=== PATIENT | male | born 1945 | race African-American/Black ===

== ENCOUNTER 2017-08-30 02:44 | Emergency (ER) | payer OTHER ==
[2017-08-30 05:07] LABS: Protime INR 1.14
[2017-08-30 05:14] LABS: Hematocrit 35.6 % (39.6-49.0); MCH 19.1 pg (27.0-35.0); MCV 62.5 fL (80-100); MPV 9.6 fL (7.6-11.3)
[2017-08-30 05:15] LABS: Potassium 3.5 mEq/L (3.6-5.0)
[2017-08-30 05:42] LABS: Blood Morphology Comment NOTED (NOT SEEN); Hypochromasia 2+; Ovalocytes 3+; Platelet Estimate ADEQ
--- NOTE | 2017-08-30 06:19 | ER ---
Nurse's Notes [facility] Name: Tal Cornejo Age: 72 yrs Sex: Male : 1945 Arrival Date: 08/30/2017 Time: 02:47 Bed 13 Private MD: Diagnosis: Deep Venous Thrombosis of left lower extremity Presentation: 08/30 03:11 Presenting complaint: Patient states: he has been having leg pain radiating from his bb calf to his hamstring and groin for approx one week and he is having SOB with mild chest pain radiating to his left arm, pt states he is on Xarelto for history of blood clots. Transition of care: patient was not received from another setting of care. Onset of symptoms was August 23, 2017. Initial Sepsis Screen: Does the patient meet any 2 criteria? No. Patient's initial sepsis screen is negative. Does the patient have a suspected source of infection? No. Patient's initial sepsis screen is negative. Care prior to arrival: None. 03:11 Method Of Arrival: Ambulatory bb 03:11 Acuity: MARTITA 3 bb Triage Assessment: 04:43 General: Appears uncomfortable. General: Behavior is cooperative, appropriate for age. bs1 Respiratory: Onset: The symptoms/episode began/occurred gradually, the patient has moderate shortness of breath. Respiratory: Airway is patent Breath sounds are clear bilaterally. Historical: - Allergies: 03:43 No Known Allergies; bb - Home Meds: 03:43 Allopurinol Oral [Active]; Ambien Oral [Active]; Furosemide Oral [Active]; losartan 100 bb mg Oral tab 1 tab once daily [Active]; Metformin Oral [Active]; Xarelto oral oral [Active]; - PMHx: 03:43 Diabetes - NIDDM; DVT; Gout; Hyperlipidemia; Hypertension; LYMPHODEMA; bb - PSHx: 03:43 L wrist; right femur; IVC filter; bb - Immunization history:: Adult Immunizations unknown, Flu vaccine is not up to date. - Social history:: Smoking status: Patient/guardian denies using tobacco, Patient uses alcohol, occasionally. Patient/guardian denies using street drugs. - Family history:: not pertinent. - Hospitalizations: : No recent hospitalization is reported. Screenin:23 Abuse screen: Denies threats or abuse. Denies injuries from another. Nutritional bs1 screening: No deficits noted. Tuberculosis screening: No symptoms or risk factors identified. 04:43 Fall Risk None identified. bs1 Assessment: 03:21 General: Appears uncomfortable, Behavior is cooperative, anxious. Pain: Complains of bs1 pain in chest, left calf Pain does not radiate. Neuro: Level of Consciousness is awake, alert, obeys commands, Oriented to person, place, time, situation, Appropriate for age Insecticide Sprayer are equal bilaterally. Cardiovascular: Reports chest pain, shortness of breath, Denies lightheadedness, nausea, palpitations, Heart tones S1 S2 present Capillary refill < 3 seconds Patient's skin is warm and dry. Rhythm is regular. Respiratory: Reports shortness of breath at rest on exertion Airway is patent Respiratory effort is labored, Breath sounds are clear bilaterally. GI: No deficits noted. No signs and/or symptoms were reported involving the gastrointestinal system. : No deficits noted. No signs and/or symptoms were reported regarding the genitourinary system. EENT: No deficits noted. No signs and/or symptoms were reported regarding the EENT system. Derm: Skin is intact, Skin is pink, warm \T\ dry. Musculoskeletal: Circulation, motion, and sensation intact. Capillary refill < 3 seconds, Range of motion: intact in all extremities, lymphedema noted to bilateral lower legs. 04:45 Reassessment: Patient appears in no apparent distress at this time. Patient and/or bs1 family updated on plan of care and expected duration. Pain level reassessed. Patient is alert, oriented x 3, equal unlabored respirations, skin warm/dry/pink. 05:45 Reassessment: Patient appears in no apparent distress at this time. Patient and/or bs1 family updated on plan of care and expected duration. Pain level reassessed. Patient is alert, oriented x 3, equal unlabored respirations, skin warm/dry/pink. Patient states symptoms have improved. 06:25 Reassessment: Patient appears in no apparent distress at this time. No changes from bs1 previously documented assessment. Patient and/or family updated on plan of care and expected duration. Pain level reassessed. Patient is alert, oriented x 3, equal unlabored respirations, skin warm/dry/pink. Vital Signs: 03:15 BP 164 / 81; Pulse 80; Resp 18; Temp 98.4(TE); Pulse Ox 97% on R/A; Weight 117.93 kg bb (R); Height 6 ft. 1 in. (185.42 cm) (R); Pain 8/10; 04:30 BP 155 / 92; Pulse 86; Resp 16; Pulse Ox 100% on R/A; bs1 05:30 BP 136 / 88; Pulse 74; Resp 16; Pulse Ox 99% on R/A; bs1 06:06 BP 154 / 83; Pulse 62; Resp 16; Pulse Ox 99% on R/A; bs1 03:15 Body Mass Index 34.30 (117.93 kg, 185.42 cm) bb ED Course: 02:47 Patient arrived in ED. al2 03:05 Timothy Brewer MD is Attending Physician. rn 03:11 Arm band placed on Patient placed in an exam room, on a stretcher, on second worker, bb on pulse oximetry. EKG completed in triage. Results shown to MD. 03:15 Inserted saline lock: 20 gauge in right antecubital area, using aseptic technique. By bs1 [place]. 03:20 Heather Power RN is Primary Nurse. bs1 03:23 Patient has correct armband on for positive identification. Bed in low position. Call bs1 light in reach. Side rails up X 1. engineer on. Pulse ox on. NIBP on. Warm blanket given. 03:40 X-ray completed. Portable x-ray completed in exam room. Patient tolerated procedure kw well. 03:40 Triage completed. bb 03:43 XRAY Chest (1 view) In Process Unspecified. EDMS 03:57 Extremity Venous Uni Ltd In Process Unspecified. EDMS 04:36 Lab(s) recollected, by me, sent to lab. bs1 06:28 No provider procedures requiring assistance completed. IV discontinued, bleeding bs1 controlled, No redness/swelling at site. Pressure dressing applied. Administered Medications: 06:28 Drug: Xarelto 20 mg Route: PO; bs1 06:29 Follow up: Response: No adverse reaction bs1 Outcome: 06:19 Discharge ordered by . rn 06:28 Discharged to home ambulatory. bs1 06:28 Condition: stable 06:28 Discharge instructions given to patient, Instructed on discharge instructions, follow up and referral plans. medication usage, Demonstrated understanding of instructions, follow-up care, medications, Prescriptions given X 1. 06:29 Patient left the ED. bs1 Signatures: Dispatcher [employer] EDAshley Macdonald RN RN bb Timothy Brewer MD MD rn Whitley, Kimberlee kw Salazar, Brittany, RN RN bs1 Sandi, Irma miles Corrections: (The following items were deleted from the chart) 03:44 03:23 BP 164 / 81; Pulse 80bpm; Resp 18bpm; Pulse Ox 97% RA; Pain 8/10; bs1 bb 03:45 03:23 BP 164 / 81; Pulse 80bpm; Resp 18bpm; Pulse Ox 97% RA; Temp 98.4F Temporal; bb 117.93 kg Reported; Height 6 ft. 1 in. Reported; BMI: 34.3; Pain 8/10; bb
--- NOTE | 2017-08-30 06:19 | EDPHYS ---
Physician Documentation [facility] Name: Tal Cornejo Age: 72 yrs Sex: Male : 1945 Arrival Date: 08/30/2017 Time: 02:47 Bed 13 Private MD: ED Physician Timothy Brewer HPI: 08/30 03:43 This 72 yrs old Black Male presents to ER via Ambulatory with complaints of Leg Pain, rn Groin Pain, Shortness Of Breath. 03:43 The patient presents with pain, swelling. The complaints affect the left hamstring and rn left calf. Onset: The symptoms/episode began/occurred 1 week(s) ago. Associated signs and symptoms: Pertinent positives: swelling. Severity of symptoms: At their worst the symptoms were mild, in the emergency department the symptoms are unchanged. The patient has experienced similar episodes in the past. Reports hx of dvt, has IVC filter, no xarelto for 2 days, reports 1 week of left leg aching, no trauma, also intermittent sob, but not much worse than usual. No fever/cough. . Historical: - Allergies: 03:43 No Known Allergies; bb - Home Meds: 03:43 Allopurinol Oral [Active]; Ambien Oral [Active]; Furosemide Oral [Active]; losartan 100 bb mg Oral tab 1 tab once daily [Active]; Metformin Oral [Active]; Xarelto oral oral [Active]; - PMHx: 03:43 Diabetes - NIDDM; DVT; Gout; Hyperlipidemia; Hypertension; LYMPHODEMA; bb - PSHx: 03:43 L wrist; right femur; IVC filter; bb - Immunization history:: Adult Immunizations unknown, Flu vaccine is not up to date. - Social history:: Smoking status: Patient/guardian denies using tobacco, Patient uses alcohol, occasionally. Patient/guardian denies using street drugs. - Family history:: not pertinent. - Hospitalizations: : No recent hospitalization is reported. ROS: 03:43 Constitutional: Negative for fever, chills, and weight loss, Eyes: Negative for injury, rn pain, redness, and discharge, Neck: Negative for injury, pain, and swelling, Cardiovascular: Negative for palpitations Respiratory: Negative for cough, wheezing, and pleuritic chest pain, Abdomen/GI: Negative for abdominal pain, nausea, vomiting, diarrhea, and constipation, Back: Negative for injury and pain, MS/Extremity: + swelling and pain to both legs Skin: Negative for injury, rash, and discoloration, Neuro: Negative for headache, weakness, numbness, tingling, and seizure. Exam: 03:43 Constitutional: Overweight male, no acute distress Head/Face: Normocephalic, rn atraumatic. Eyes: Pupils equal round and reactive to light, extra-ocular motions intact. Lids and lashes normal. Conjunctiva and sclera are non-icteric and not injected. Cornea within normal limits. Periorbital areas with no swelling, redness, or edema. Neck: Trachea midline, no thyromegaly or masses palpated, and no cervical lymphadenopathy. Supple, full range of motion without nuchal rigidity, or vertebral point tenderness. No Meningismus. Cardiovascular: Regular rate and rhythm with a normal S1 and S2. No gallops, murmurs, or rubs. Normal PMI, no JVD. No pulse deficits. Respiratory: Lungs have equal breath sounds bilaterally, clear to auscultation and percussion. No rales, rhonchi or wheezes noted. No increased work of breathing, no retractions or nasal flaring. Abdomen/GI: Soft, non-tender, with normal bowel sounds. No distension or tympany. No guarding or rebound. No evidence of tenderness throughout. MS/ Extremity: Pulses equal, no cyanosis. Neurovascular intact. Full, normal range of motion. Equal circumference. 2+ pitting edema bilateral lower ext Neuro: Awake and alert, GCS 15, oriented to person, place, time, and situation. Cranial nerves II-XII grossly intact. Motor strength 5/5 in all extremities. Sensory grossly intact. Vital Signs: 03:15 BP 164 / 81; Pulse 80; Resp 18; Temp 98.4(TE); Pulse Ox 97% on R/A; Weight 117.93 kg bb (R); Height 6 ft. 1 in. (185.42 cm) (R); Pain 8/10; 04:30 BP 155 / 92; Pulse 86; Resp 16; Pulse Ox 100% on R/A; bs1 05:30 BP 136 / 88; Pulse 74; Resp 16; Pulse Ox 99% on R/A; bs1 06:06 BP 154 / 83; Pulse 62; Resp 16; Pulse Ox 99% on R/A; bs1 03:15 Body Mass Index 34.30 (117.93 kg, 185.42 cm) bb MDM: 03:05 Patient medically screened. rn 06:17 Differential diagnosis: DVT, edema, CHF. Data reviewed: vital signs, nurses notes, seed laboratory assistant test result(s), radiologic studies, doppler, plain films, and as a result, I will discharge patient. Counseling: I had a detailed discussion with the patient and/or guardian regarding: the historical points, exam findings, and any diagnostic results supporting the discharge/admit diagnosis, lab results, radiology results, the need for outpatient follow up, to return to the emergency department if symptoms worsen or persist or if there are any questions or concerns that arise at home. Special discussion: I discussed with the patient/guardian in detail that at this point there is no indication for admission to the hospital. It is understood, however, that if the symptoms persist or worsen the patient needs to return immediately for re-evaluation. ED course: Pt with DVT in LLE, larger than before, sleeping comfortably while oxygen 99% and normal HR, has IVC filter, will refill xarelto and dc home. . 08/30 03:13 Order name: CBC with Diff; Complete Time: 05:53 rn 08/30 03:13 Order name: Basic Metabolic Panel; Complete Time: 05:53 rn 08/30 03:13 Order name: Protime (+inr); Complete Time: 05:53 rn 08/30 03:13 Order name: Ptt, Activated; Complete Time: 05:53 rn 08/30 03:13 Order name: Troponin (emerg Dept Use Only); Complete Time: 05:53 rn 08/30 03:13 Order name: BNP; Complete Time: 05:53 rn 08/30 03:13 Order name: IV Start; Complete Time: 03:20 rn 08/30 03:13 Order name: EKG; Complete Time: 03:14 rn 08/30 03:13 Order name: XRAY Chest (1 view) rn 08/30 03:30 Order name: Extremity Venous Uni Ltd em1 08/30 03:46 Order name: Extremity Venous Uni Ltd EDNY 08/30 05:15 Order name: Manual Differential; Complete Time: 05:53 EDNY 08/30 03:13 Order name: EKG - Nurse/Tech; Complete Time: 03:20 rn Administered Medications: 06:28 Drug: Xarelto 20 mg Route: PO; bs1 06:29 Follow up: Response: No adverse reaction bs1 Disposition: 08/30/17 06:19 Discharged to Home. Impression: Deep Venous Thrombosis of left lower extremity. - Condition is Stable. - Discharge Instructions: Deep Vein Thrombosis. - Prescriptions for Xarelto 20 mg Oral tablet - take 1 tablet by ORAL route once daily; 60 tablet. - Medication Reconciliation Form, Thank You Letter, Antibiotic Education, Prescription Opioid Use form. - Follow up: Private Physician; When: 1 - 2 days; Reason: Recheck today's complaints, Re-evaluation by your physician. - Problem is an ongoing problem. - Symptoms are unchanged. Signatures: Dispatcher [employer] [facility] Ashley Delaney RN RN Timothy Navarro MD MD rn Salazar, Brittany, RN RN bs1 Corrections: (The following items were deleted from the chart) 03:14 03:14 Extremity Venous Uni Ltd+US.RAD.BRZ ordered. [facility] 06:29 06:19 08/30/2017 06:19 Discharged to Home. Impression: Deep Venous Thrombosis of left bs1 lower extremity. Condition is Stable. Forms are Medication Reconciliation Form, Thank You Letter, Antibiotic Education, Prescription Opioid Use. Follow up: Private Physician; When: 1 - 2 days; Reason: Recheck today's complaints, Re-evaluation by your physician. Problem is an ongoing problem. Symptoms are unchanged. rn
[2017-08-30] MEDS ORDERED: RIVAROXABAN 20 MG TABLET PO ONE (06:20)
[2017-08-30 06:43] VITALS: TEMP 98.4
[2017-08-30 06:44] VITALS: O2SAT 99
[2017-08-30 06:46] VITALS: BP 154/83
--- NOTE | 2017-08-30 08:32 | RAD REPORT ---
EXAM DESCRIPTION: RAD - Chest Single View - 08/30/2017 3:42 am CLINICAL HISTORY: Chest pain. COMPARISON: 04/20/2017 FINDINGS: Portable technique limits examination quality. The lungs are grossly clear. The heart is normal in size. No displaced fractures.Tortuous thoracic ao rta. IMPRESSION: No acute intrathoracic process suspected.
--- NOTE | 2017-08-30 08:33 | RAD REPORT ---
EXAM DESCRIPTION: VAS - Extremity Venous Uni Ltd - 08/30/2017 3:57 am CLINICAL HISTORY: Leg swelling and edema. COMPARISON: 04/20/2017 FINDINGS: Left lower extremity venous system was interrogated with Doppler technique. Thrombus is pr esent in the left common femoral vein, left femoral vein proximal and mid aspects, left popliteal vei n and superficial saphenous vein in the calf region. This is compatible with extensive DVT. IMPRESSION: Extensive left lower extremity DVT is present as detailed.
--- NOTE | 2017-08-30 10:28 | EKG ---
Test Date: 2017-08-30 Test Time: 03:07:24 Tour Consultant: REE MEASUREMENT RESULTS: Intervals: Rate: 84 FL: 138 QRSD: 84 QT: 384 QTc: 453 [place]: P: 46 FL: 138 QRS: -12 T: 55 INTERPRETIVE STATEMENTS: Normal sinus rhythm Voltage criteria for left ventricular hypertrophy Abnormal ECG Compared to ECG 04/20/2017 08:46:33 No significant changes Electronically Signed On 08-30-17 10:27:03 CDT by Tien Oliva
== END 2017-08-30 06:29 | disposition home or self-care (01) ==
LOC: ER 02:44
DX: I82.402 Acute embolism and thrombosis of unspecified deep veins of left lower extremity (principal); I10 Essential (primary) hypertension; E11.9 Type 2 diabetes mellitus without complications; E78.5 Hyperlipidemia, unspecified; Z79.01 Long term (current) use of anticoagulants; Z86.718 Personal history of other venous thrombosis and embolism
CPT/HCPCS: 36415; 71045; 80048; 82962; 83880; 84484; 85025; 85610; 85730; 93005; 93971; 99284

== ENCOUNTER 2017-09-08 08:50 | Emergency (ER) | payer OTHER, SELFPAY ==
[2017-09-08 09:55] LABS: Absolute Lymphocytes (CBC) 1.1 K/uL (0.7-4.9); Absolute Monocytes 0.8 K/uL (0.1-1.3); Absolute Neutrophil 4.7 K/uL (1.8-8.0); Basophils % 0.5 % (0-1.3); Eosinophils % 4.1 % (0-4.4); Hematocrit 35.3 % (39.6-49.0); MCH 19.1 pg (27.0-35.0); MCV 62.1 fL (80-100); Monocytes % 11.1 % (3.3-12.3); RBC Red Blood Cell Count 5.69 M/uL (4.33-5.43)
[2017-09-08 10:02] LABS: Protime INR 1.09
[2017-09-08 10:08] LABS: Potassium 3.7 mEq/L (3.6-5.0)
[2017-09-08] MEDS ORDERED: MUPIROCIN 2% OINT 22GM TUBE TOP ONE (10:08)
[2017-09-08 10:14] LABS: Albumin 3.6 g/dL (3.2-5.5); Bilirubin Direct 0.1 mg/dL (0-0.2); Bilirubin Total 0.5 mg/dL (0.3-1.2); Protein, Total 7.2 g/dL (6.0-8.3)
[2017-09-08 10:17] LABS: CKMB Creatine Kinase MB 0.7 ng/ml (0.3-4.0)
[2017-09-08 10:29] LABS: Anisocytosis 1+; Blood Morphology Comment NOTED (NOT SEEN); Platelet Estimate ADEQ
[2017-09-08 10:30] LABS: Hypochromasia 2+; Target Cells 1+
--- NOTE | 2017-09-08 10:54 | RAD REPORT ---
EXAM DESCRIPTION: VASExtrem Venous W Compress Bil09/08/2017 10:41 am CLINICAL HISTORY: Bilateral leg swelling and pain COMPARISON: August 30 FINDINGS: Minimal improvement within the overall thrombus within the left lower extremity. Echogenic material consistent with acute thrombus is present within the the right common femoral, rig ht superficial femoral and right popliteal veins. Thrombus is also seen within the proximal right estefany p femoral vein. The thrombus is nonocclusive. IMPRESSION: Minimal improvement in the thrombus throughout the left lower extremity Subacute thrombus within the right lower extremity is described above
--- NOTE | 2017-09-08 11:00 | ER ---
Nurse's Notes [facility] Name: Tal Cornejo Age: 72 yrs Sex: Male : 1945 Arrival Date: 09/08/2017 Time: 08:53 Bed 7 Private MD: None, None Diagnosis: Dyspnea;Type 2 diabetes mellitus;Acute embolism and thrombosis of other specified deep vein of lower extremity-bilaterally;Unspecified kidney failure Presentation: 09/08 09:03 Presenting complaint: Patient states: my legs been swelling for about a week now, and tw2 this spot opened up a couple of days ago on my right ankle. Transition of care: patient was not received from another setting of care. Onset of symptoms was September 08, 2017. Initial Sepsis Screen: Does the patient meet any 2 criteria? No. Patient's initial sepsis screen is negative. Does the patient have a suspected source of infection? No. Patient's initial sepsis screen is negative. Care prior to arrival: None. 09:03 Method Of Arrival: Ambulatory tw2 09:03 Acuity: MARTITA 3 tw2 Historical: - Allergies: 08:57 No Known Allergies; aa5 - Home Meds: 09:07 Allopurinol Oral [Active]; Ambien Oral [Active]; Furosemide Oral [Active]; losartan 100 tw2 mg Oral tab 1 tab once daily [Active]; Metformin Oral [Active]; Xarelto Oral [Active]; - PMHx: 08:57 Diabetes - NIDDM; DVT; Gout; Hyperlipidemia; Hypertension; LYMPHODEMA; aa5 - PSHx: 08:57 L wrist; right femur; IVC filter; aa5 - Immunization history:: Adult Immunizations up to date. - Social history:: Smoking status: Patient/guardian denies using tobacco. - Family history:: not pertinent. Screenin:04 Abuse screen: Denies threats or abuse. Nutritional screening: No deficits noted. tw2 Tuberculosis screening: No symptoms or risk factors identified. Fall Risk None identified. Assessment: 09:08 General: Appears in no apparent distress. Behavior is calm, cooperative, appropriate tw2 for age. Pain: Complains of pain in right leg and left leg. Neuro: Level of Consciousness is awake, alert, obeys commands, Oriented to person, place, time, situation. Cardiovascular: Denies chest pain, shortness of breath, Heart tones S1 S2 Capillary refill < 3 seconds Edema is 4+ to left midcalf, left ankle, left foot, left toes, right midcalf, right ankle, right foot and right toes. Respiratory: Airway is patent Respiratory effort is even, unlabored, Respiratory pattern is regular, symmetrical, Breath sounds are clear bilaterally. GI: No signs and/or symptoms were reported involving the gastrointestinal system. Abdomen is round non-distended, obese, Bowel sounds present X 4 quads. : No signs and/or symptoms were reported regarding the genitourinary system. EENT: No signs and/or symptoms were reported regarding the EENT system. Derm: Skin is intact, is healthy with good turgor, Skin is dry, Skin temperature is warm Wound noted medial aspect of right calf Reports "this same spot was healed up from the wound healing center about a few months ago and now it opened back up and is draining". 10:34 Reassessment: Patient appears in no apparent distress at this time. No changes from tw2 previously documented assessment. Patient and/or family updated on plan of care and expected duration. Pain level reassessed. Patient is alert, oriented x 3, equal unlabored respirations, skin warm/dry/pink. 11:51 Reassessment: Patient appears in no apparent distress at this time. No changes from tw2 previously documented assessment. Patient and/or family updated on plan of care and expected duration. Pain level reassessed. Patient is alert, oriented x 3, equal unlabored respirations, skin warm/dry/pink. 13:19 Reassessment: Patient appears in no apparent distress at this time. No changes from tw2 previously documented assessment. Patient and/or family updated on plan of care and expected duration. Pain level reassessed. Patient is alert, oriented x 3, equal unlabored respirations, skin warm/dry/pink. 14:00 Reassessment: Patient appears in no apparent distress at this time. No changes from hb previously documented assessment. Patient and/or family updated on plan of care and expected duration. Pain level reassessed. Patient is alert, oriented x 3, equal unlabored respirations, skin warm/dry/pink. Transfer pending. 15:25 Reassessment: Patient appears in no apparent distress at this time. No changes from tw2 previously documented assessment. Patient and/or family updated on plan of care and expected duration. Pain level reassessed. Patient is alert, oriented x 3, equal unlabored respirations, skin warm/dry/pink. Vital Signs: 09:04 BP 164 / 89; Pulse 77; Resp 18; Temp 97.8; Pulse Ox 97% on R/A; Weight 115.67 kg (R); tw2 Height 6 ft. 1 in. (185.42 cm); Pain 10/10; 10:34 BP 155 / 73; Pulse 73; Resp 19; Pulse Ox 99% on R/A; tw2 11:50 BP 157 / 85; Pulse 65; Resp 18; Pulse Ox 98% on R/A; tw2 12:36 BP 160 / 76; Pulse 68; Resp 17; Pulse Ox 97% on R/A; tw2 13:17 BP 150 / 94; Pulse 65; Resp 16; Pulse Ox 97% on R/A; tw2 14:16 BP 155 / 76; Pulse 73; Resp 16; Pulse Ox 100% on R/A; hb 15:25 BP 162 / 77; Pulse 82; Resp 17; Pulse Ox 99% on R/A; tw2 09:04 Body Mass Index 33.64 (115.67 kg, 185.42 cm) tw2 ED Course: 08:53 Patient arrived in ED. sb2 08:54 None, None is Private Physician. sb2 08:57 Arm band placed on. aa5 09:03 Kristen Queen, RN is Primary Nurse. tw2 09:04 Triage completed. tw2 09:04 Placed in gown. Bed in low position. Call light in reach. case monitor on. Pulse ox tw2 on. NIBP on. Warm blanket given. 09:26 Aleksey Ramsey MD is Attending Physician. dev 09:30 Missed attempt(s): 22 gauge in right antecubital area. Bleeding controlled, band aid tw2 applied, catheter tip intact. Missed attempt(s): 22 gauge in right antecubital area. Bleeding controlled, band aid applied, catheter tip intact. 09:32 Inserted saline lock: 20 gauge in right antecubital area, using aseptic technique. ms Blood collected. 10:01 Radiology exam delayed due to ultrasound. jw2 10:18 Ultrasound completed. Patient tolerated well. Notified ED Physician jess. sg3 10:33 X-ray completed. Portable x-ray completed in exam room. jw2 10:34 XRAY Chest (1 view) In Process Unspecified. EDMS 10:50 First set of blood cultures drawn by me, Urine collected: EKG done, by ED staff, ms reviewed by Aleksey Ramsey MD. 11:04 Called to initiate to transfer to the [facility] and was told to call back after 12. Because there was only one physician and he already had accepted two transfers from somewhere. She said she will call us back as soon as the other physician arrives at 12 pm. 12:53 Spoke to Mary at the [facility] at 12:15 and asked to please fax all of the patients ag demographics, lab results, nurses and doctors notes. She would inform and show the doctor and then call me back. 13:19 No provider procedures requiring assistance completed. tw2 14:16 Report given to Meera Perez RN. tw2 15:25 Patient transferred, IV remains in place. tw2 Administered Medications: 10:28 Drug: Bactroban Ointment 2 % 1 application {Note: right medial aspect to rubio.} Route: tw2 Topical; Site: wound; 11:52 Follow up: Response: No adverse reaction tw2 Outcome: 10:59 ER care complete, transfer ordered by . dev 15:25 Patient left the ED. tw2 15:25 Transferred by ground EMS to [facility] tw2 15:25 Condition: stable 15:25 Instructed on the need for admit. Signatures: Dispatcher [employer] Aleksey Suazo MD MD cha Solis, Maria ms Calderon, Audri, RN RN aa5 Marilee Siegel Jenni jw2 Sofia Yu RN RN Kristen Queen RN RN tw2 Sneha Friend sg3 Estrella Rosa sb2 Corrections: (The following items were deleted from the chart) 10:44 10:42 In radiology for Extrem Venous W Compression Ronaldo+[email or web address]. EDMS sg3
--- NOTE | 2017-09-08 11:00 | EDPHYS ---
Physician Documentation [facility] Name: Tal Cornejo Age: 72 yrs Sex: Male : 1945 Arrival Date: 09/08/2017 Time: 08:53 Bed 7 Private MD: None, None ED Physician Aleksey Ramsey HPI: 09/08 09:32 This 72 yrs old Black Male presents to ER via Ambulatory with complaints of Leg Pain, dev Leg Swelling. 09:32 The patient presents with decreased range of motion, pain, swelling, tenderness. The dev complaints affect the right leg and left leg. Context: The problem was sustained at an unknown site. Onset: The symptoms/episode began/occurred 1 week(s) ago. Modifying factors: The symptoms are alleviated by nothing. the symptoms are aggravated by nothing. Associated signs and symptoms: The patient has no apparent associated signs or symptoms, Pertinent positives: swelling, of the right leg and left leg. Severity of symptoms: At their worst the symptoms were mild, moderate, in the emergency department the symptoms are unchanged. The patient has experienced similar episodes in the past, a few times. Historical: - Allergies: 08:57 No Known Allergies; aa5 - Home Meds: 09:07 Allopurinol Oral [Active]; Ambien Oral [Active]; Furosemide Oral [Active]; losartan 100 tw2 mg Oral tab 1 tab once daily [Active]; Metformin Oral [Active]; Xarelto Oral [Active]; - PMHx: 08:57 Diabetes - NIDDM; DVT; Gout; Hyperlipidemia; Hypertension; LYMPHODEMA; aa5 - PSHx: 08:57 L wrist; right femur; IVC filter; aa5 - Immunization history:: Adult Immunizations up to date. - Social history:: Smoking status: Patient/guardian denies using tobacco. - Family history:: not pertinent. ROS: 09:32 Constitutional: Negative for fever, chills, and weight loss, Eyes: Negative for injury, dev pain, redness, and discharge, ENT: Negative for injury, pain, and discharge, Neck: Negative for injury, pain, and swelling, Cardiovascular: Negative for chest pain, palpitations, and edema, Abdomen/GI: Negative for abdominal pain, nausea, vomiting, diarrhea, and constipation, Back: Negative for injury and pain, : Negative for injury, bleeding, discharge, and swelling, Skin: Negative for injury, rash, and discoloration, Neuro: Negative for headache, weakness, numbness, tingling, and seizure, Psych: Negative for depression, anxiety, suicide ideation, homicidal ideation, and hallucinations, Allergy/Immunology: Negative for hives, rash, and allergies, Endocrine: Negative for neck swelling, polydipsia, polyuria, polyphagia, and marked weight changes, Hematologic/Lymphatic: Negative for swollen nodes, abnormal bleeding, and unusual bruising. 09:32 Respiratory: Positive for cough, shortness of breath. 09:32 MS/extremity: Positive for decreased range of motion, swelling, tenderness. Exam: 09:32 Constitutional: This is a well developed, well nourished patient who is awake, alert, dev and in no acute distress. Head/Face: Normocephalic, atraumatic. Eyes: Pupils equal round and reactive to light, extra-ocular motions intact. Lids and lashes normal. Conjunctiva and sclera are non-icteric and not injected. Cornea within normal limits. Periorbital areas with no swelling, redness, or edema. ENT: Nares patent. No nasal discharge, no septal abnormalities noted. Tympanic membranes are normal and external auditory canals are clear. Oropharynx with no redness, swelling, or masses, exudates, or evidence of obstruction, uvula midline. Mucous membranes moist. Neck: Trachea midline, no thyromegaly or masses palpated, and no cervical lymphadenopathy. Supple, full range of motion without nuchal rigidity, or vertebral point tenderness. No Meningismus. Chest/axilla: Normal chest wall appearance and motion. Nontender with no deformity. No lesions are appreciated. Cardiovascular: Regular rate and rhythm with a normal S1 and S2. No gallops, murmurs, or rubs. Normal PMI, no JVD. No pulse deficits. Respiratory: Lungs have equal breath sounds bilaterally, clear to auscultation and percussion. No rales, rhonchi or wheezes noted. No increased work of breathing, no retractions or nasal flaring. Abdomen/GI: Soft, non-tender, with normal bowel sounds. No distension or tympany. No guarding or rebound. No evidence of tenderness throughout. Back: No spinal tenderness. No costovertebral tenderness. Full range of motion. Male : Normal genitalia with no discharge or lesions. Skin: Warm, dry with normal turgor. Normal color with no rashes, no lesions, and no evidence of cellulitis. Neuro: Awake and alert, GCS 15, oriented to person, place, time, and situation. Cranial nerves II-XII grossly intact. Motor strength 5/5 in all extremities. Sensory grossly intact. Cerebellar exam normal. Normal gait. Psych: Awake, alert, with orientation to person, place and time. Behavior, mood, and affect are within normal limits. 09:32 Musculoskeletal/extremity: Circulation is intact in all extremities. Sensation intact. Compartment Syndrome exam of affected extremity: is normal. DVT Exam: negative Homans' sign noted on exam, no appreciated bluish discoloration, no erythema, pain, swelling, tenderness, increased warmth. Vital Signs: 09:04 BP 164 / 89; Pulse 77; Resp 18; Temp 97.8; Pulse Ox 97% on R/A; Weight 115.67 kg (R); tw2 Height 6 ft. 1 in. (185.42 cm); Pain 10/10; 10:34 BP 155 / 73; Pulse 73; Resp 19; Pulse Ox 99% on R/A; tw2 11:50 BP 157 / 85; Pulse 65; Resp 18; Pulse Ox 98% on R/A; tw2 12:36 BP 160 / 76; Pulse 68; Resp 17; Pulse Ox 97% on R/A; tw2 13:17 BP 150 / 94; Pulse 65; Resp 16; Pulse Ox 97% on R/A; tw2 14:16 BP 155 / 76; Pulse 73; Resp 16; Pulse Ox 100% on R/A; hb 15:25 BP 162 / 77; Pulse 82; Resp 17; Pulse Ox 99% on R/A; tw2 09:04 Body Mass Index 33.64 (115.67 kg, 185.42 cm) tw2 MDM: 09:26 Patient medically screened. [facility] 09:35 Data reviewed: vital signs, nurses notes, lab test result(s), EKG, radiologic studies, [facility] plain films, ultrasound. 09/08 09:32 Order name: Basic Metabolic Panel; Complete Time: 10:38 [facility] 09/08 10:42 Interpretation: GLUC 115. [facility] 09/08 09:32 Order name: BNP; Complete Time: 10:38 [facility] 09/08 09:32 Order name: CBC with Diff; Complete Time: 10:38 [facility] 09/08 09:32 Order name: Ckmb; Complete Time: 10:38 [facility] 09/08 09:32 Order name: CPK; Complete Time: 10:38 [facility] 09/08 09:32 Order name: LFT's; Complete Time: 10:38 [facility] 09/08 09:32 Order name: Magnesium; Complete Time: 10:38 [facility] 09/08 09:32 Order name: PT-INR; Complete Time: 10:38 [facility] 09/08 09:32 Order name: Ptt, Activated; Complete Time: 10:38 [facility] 09/08 09:32 Order name: Troponin (emerg Dept Use Only); Complete Time: 10:38 [facility] 09/08 09:32 Order name: Lipase; Complete Time: 10:38 [facility] 09/08 09:32 Order name: Blood Culture Adult (2) 09/08 10:08 Order name: Manual Differential; Complete Time: 10:38 [facility]IN 09/08 09:32 Order name: XRAY Chest (1 view); Complete Time: 12:40 [facility] 09/08 09:32 Order name: EKG; Complete Time: 09:32 [facility] 09/08 09:32 Order name: Cardiac monitoring; Complete Time: 09:56 [facility] 09/08 09:32 Order name: EKG - Nurse/Tech; Complete Time: 09:56 [facility] 09/08 09:32 Order name: IV Saline Lock; Complete Time: 09:56 [facility] 09/08 09:32 Order name: Labs collected and sent; Complete Time: 09:56 [facility] 09/08 09:32 Order name: O2 Per Protocol; Complete Time: 09:56 [facility] 09/08 09:32 Order name: O2 Sat Monitoring; Complete Time: 09:56 [facility] 09/08 09:32 Order name: Urine Dipstick-Ancillary (obtain specimen); Complete Time: 10:55 [facility] 09/08 09:32 Order name: US Extremity Venous W Compression Ronaldo; Complete Time: 12:40 [facility] 09/08 09:32 Order name: Wound Care; Complete Time: 09:56 [facility] 09/08 11:00 Order name: Urine Dipstick--Ancillary (enter results); Complete Time: 12:40 ag Administered Medications: 10:28 Drug: Bactroban Ointment 2 % 1 application {Note: right medial aspect to rubio.} Route: tw2 Topical; Site: wound; 11:52 Follow up: Response: No adverse reaction tw2 Disposition: 09/08/17 10:59 Transfer ordered to [facility]. Diagnosis are Dyspnea, Type 2 diabetes mellitus, Acute embolism and thrombosis of other specified deep vein of lower extremity - bilaterally, Unspecified kidney failure. - Reason for transfer: Higher level of care. - Accepting physician is to in. - Condition is Fair. - Problem is new. - Symptoms have improved. Signatures: Dispatcher [employer] EDAleksey Persaud MD MD cha Calderon, Audri, RN RN aa5 Kristen Queen RN RN tw2 Corrections: (The following items were deleted from the chart) 10:42 10:42 Within normal limits: GLUC 115. [facility] 12:41 10:59 09/08/2017 10:59 Transfer ordered to [facility]. Diagnosis is Dyspnea; Type 2 diabetes mellitus; Acute embolism and thrombosis of other specified deep vein of lower extremity - bilaterally. Reason for transfer: Higher level of care. Accepting physician is to in. Condition is Fair. Problem is new. Symptoms have improved. [facility] 15:25 12:41 09/08/2017 10:59 Transfer ordered to [address] Diagnosis is Dyspnea; Type 2 diabetes mellitus; Acute embolism and thrombosis of other specified deep vein of lower extremity - bilaterally; Unspecified kidney failure. Reason for transfer: Higher level of care. Accepting physician is to in. Condition is Fair. Problem is new. Symptoms have improved. dev
[2017-09-08 11:39] LABS: Urine Blood NEGATIVE (NEG); Urine Glucose NEGATIVE (NEG); Urine Protein NEGATIVE (NEG); Urine Specific Gravity 1.015 (1.005-1.030); Urine pH 6.5 (5.0-7.0)
--- NOTE | 2017-09-08 12:27 | RAD REPORT ---
EXAM DESCRIPTION: Syeda Single View09/08/2017 10:35 am CLINICAL HISTORY: cough COMPARISON: August 30, 2017 FINDINGS: The lungs appear clear of acute infiltrate. The heart is mildly enlarged IMPRESSION: No acute abnormalities displayed
--- NOTE | 2017-09-08 14:03 | EKG ---
Test Date: 2017-09-08 Test Time: 10:44:57 [employer]: MEASUREMENT RESULTS: Intervals: Rate: 70 ME: 138 QRSD: 86 QT: 416 QTc: 449 [place]: P: 39 ME: 138 QRS: -4 T: 38 INTERPRETIVE STATEMENTS: Normal sinus rhythm Minimal voltage criteria for LVH, may be normal variant Borderline ECG Compared to ECG 08/30/2017 03:07:24 No significant changes Electronically Signed On 09-08-17 14:03:12 CDT by Walt Mera
[2017-09-08 15:29] VITALS: TEMP 97.8
[2017-09-08 15:35] VITALS: BP 155/76; O2SAT 100
== END 2017-09-08 15:25 ==
LOC: ER 08:50
DX: I82.403 Acute embolism and thrombosis of unspecified deep veins of lower extremity, bilateral (principal); N19 Unspecified kidney failure; E11.9 Type 2 diabetes mellitus without complications; I10 Essential (primary) hypertension; E78.5 Hyperlipidemia, unspecified
CPT/HCPCS: 36415; 71045; 80048; 80076; 81003; 82550; 82553; 83690; 83735; 83880; 84484; 85025; 85610; 85730; 87040; 93005; 93970; 99285

== ENCOUNTER 2018-11-24 20:40 | Emergency (ER) | payer OTHER ==
[2018-11-24 21:56] LABS: Absolute Lymphocytes (CBC) 2.3 K/uL (0.7-4.9); Basophils % 1.4 % (0-1.3); Hematocrit 36.2 % (39.6-49.0); Lymphocytes % 34.7 % (15.3-44.8); MPV 9.3 fL (7.6-11.3); RBC Red Blood Cell Count 5.78 M/uL (4.33-5.43)
[2018-11-24 21:57] LABS: Protime INR 1.31
[2018-11-24 22:10] LABS: ALT/SGPT 15 U/L (12-78); AST/SGOT 11 U/L (15-37); Albumin 3.3 g/dL (3.4-5.0); Alkaline Phosphatase 72 U/L (45-117); BUN Blood Urea Nitrogen 10 mg/dL (7-18); Bicarbonate 26 mmol/L (21-32); Bilirubin Total 0.5 mg/dL (0.2-1.0); Glucose Level 85 mg/dL (74-106); NT PRO-BNP 1655 pg/mL (<125); Potassium 3.7 mmol/L (3.5-5.1); Protein, Total 7.2 g/dL (6.4-8.2); Sodium Level 144 mmol/L (136-145); Troponin (Emerg Dept Use Only) < 0.02 ng/mL (0.0-0.045)
[2018-11-24 22:33] LABS: Blood Morphology Comment NOTED (NOT SEEN); Hypochromasia 1+; Platelet Estimate ADEQ; Target Cells 2+
--- NOTE | 2018-11-25 05:09 | ER ---
Nurse's Notes [facility] Name: Tal Cornejo Age: 73 yrs Sex: Male : 1945 Arrival Date: 11/24/2018 Time: 20:[address] Private MD: Diagnosis: Cervicalgia;Intercostal pain Presentation: 11/24 21:00 Presenting complaint: EMS states: complaining of chest pain when breathing and moving rr5 radiating to back. history of fall 5 days ago, on blood thinner. 21:00 Transition of care: patient was not received from another setting of care. Onset of rr5 symptoms was November 20, 2018. Risk Assessment: Do you want to hurt yourself or someone else? Patient reports no desire to harm self or others. Initial Sepsis Screen: Does the patient meet any 2 criteria? No. Patient's initial sepsis screen is negative. Does the patient have a suspected source of infection? No. Patient's initial sepsis screen is negative. Note stated by patient I fell down approximate 4 feet height head first then hit my back. I am on blood thinners and has history of blood clots. pain score 6/10. Care prior to arrival: None. 21:00 Method Of Arrival: EMS: [facility] rr5 21:00 Acuity: MARTITA 2 rr5 Historical: - Allergies: 21:00 No Known Allergies; rr5 - Home Meds: 21:00 Allopurinol Oral [Active]; Ambien Oral [Active]; Furosemide Oral [Active]; losartan 100 rr5 mg Oral tab 1 tab once daily [Active]; Metformin Oral [Active]; Xarelto Oral [Active]; atorvastatin oral oral [Active]; - PMHx: 21:00 Diabetes - NIDDM; DVT; Gout; Hyperlipidemia; Hypertension; LYMPHODEMA; rr5 - PSHx: 21:00 femur surgery; rr5 - Immunization history:: Adult Immunizations unknown. - Social history:: Smoking status: Patient/guardian denies using tobacco, Patient uses alcohol, occasionally. Patient/guardian denies using street drugs. - Ebola Screening: : Patient negative for fever greater than or equal to 101.5 degrees Fahrenheit, and additional compatible Ebola Virus Disease symptoms Patient denies exposure to infectious person Patient denies travel to an Ebola-affected area in the 21 days before illness onset. Screenin:12 Abuse screen: Denies threats or abuse. Denies injuries from another. Nutritional rr5 screening: No deficits noted. Tuberculosis screening: No symptoms or risk factors identified. Fall Risk IV access (20 points). Total Leigh Fall Scale indicates No Risk (0-24 pts). Assessment: 21:00 General: Appears in no apparent distress. comfortable, Behavior is calm, cooperative, rr5 appropriate for age. Pain: Complains of pain in chest Pain radiates to back Pain currently is 6 out of 10 on a pain scale. Quality of pain is described as aching, Pain began gradually, Is intermittent. 21:00 Neuro: Level of Consciousness is awake, alert, obeys commands, Oriented to person, rr5 place, time, situation, Appropriate for age. Cardiovascular: Reports chest pain, Capillary refill < 3 seconds Patient's skin is warm and dry. Respiratory: Airway is patent Respiratory effort is even, unlabored, Respiratory pattern is regular, symmetrical. GI: No signs and/or symptoms were reported involving the gastrointestinal system. : No signs and/or symptoms were reported regarding the genitourinary system. EENT: No signs and/or symptoms were reported regarding the EENT system. Derm: Skin is pink, warm \T\ dry. Skin temperature is warm. Musculoskeletal: Circulation, motion, and sensation intact. Capillary refill < 3 seconds, bilateral edema Reports pain in back. 21:05 Reassessment: ED provider informed for the chief complaint of the patient. as verbal rr5 ordered no need to call trauma alert. 22:00 Reassessment: Patient appears in no apparent distress at this time. Patient and/or rr5 family updated on plan of care and expected duration. Pain level reassessed. Patient is alert, oriented x 3, equal unlabored respirations, skin warm/dry/pink. awaiting for CT result. 23:15 Reassessment: Patient appears in no apparent distress at this time. Patient is alert, rr5 oriented x 3, equal unlabored respirations, skin warm/dry/pink. snacks given with good appetite. 08 00:00 Reassessment: Patient appears in no apparent distress at this time. awaiting for rr5 review. no complaints made. 01:00 Reassessment: Patient appears in no apparent distress at this time. Patient and/or rr5 family updated on plan of care and expected duration. Pain level reassessed. Patient is alert, oriented x 3, equal unlabored respirations, skin warm/dry/pink. ED provider added chest CT without contrast. 02:16 Reassessment: Patient appears in no apparent distress at this time. Patient is alert, rr5 oriented x 3, equal unlabored respirations, skin warm/dry/pink. eyes closed breathing spontaneously at room air. follow up to CT department for the chest CT. 02:50 Reassessment: Patient appears in no apparent distress at this time. Patient is alert, rr5 oriented x 3, equal unlabored respirations, skin warm/dry/pink. send to CT scan via wheelchair assisted by CT staff. 04:42 Reassessment: Patient and/or family updated on plan of care and expected duration. Pain bb level reassessed. Patient is alert, oriented x 3, equal unlabored respirations, skin warm/dry/pink. pt is resting quietly, additional blankets given per pt request, IV site intact no erythema or edema noted, pt is awaiting CT results. 05:25 Reassessment: Patient is alert, oriented x 3, equal unlabored respirations, skin bb warm/dry/pink. pt requested to speak to Dr Lopez who is at bedside for discussion of findings and recommendations pt to be discharged, pt assisted to lobby via wheelchair. Vital Signs: 11/24 21:00 BP 149 / 78; Pulse 75; Resp 20; Temp 97.9; Pulse Ox 98% ; Weight 121.56 kg; Height 6 rr5 ft. 1 in. (185.42 cm); Pain 6/10; 22:00 BP 159 / 83; Pulse 75; Resp 19; Pulse Ox 99% on R/A; rr5 23:00 BP 142 / 71; Pulse 69; Resp 17; Pulse Ox 100% ; rr5 08 00:00 BP 133 / 52; Pulse 66; Resp 17; Pulse Ox 98% on R/A; rr5 01:00 BP 147 / 71; Pulse 66; Resp 20; Pulse Ox 99% ; rr5 02:00 BP 157 / 91; Pulse 67; Resp 18; Temp 98; Pulse Ox 100% ; rr5 02:36 BP 153 / 81; Pulse 69; Resp 16; Pulse Ox 100% ; rr5 04:44 BP 155 / 79; Pulse 73; Resp 18 S; Pulse Ox 100% on R/A; bb 11/24 21:00 Body Mass Index 35.36 (121.56 kg, 185.42 cm) rr5 ED Course: 11/24 20:56 Patient arrived in ED. bb 21:00 Gabriel Caceres, RN is Primary Nurse. rr5 21:00 Arm band placed on. EKG completed in triage. Results shown to MD. rr5 21:08 Triage completed. rr5 21:12 Maintain EMS IV. Dressing intact. Good blood return noted. Site clean \T\ dry. Gauge \T\ rr 5 site: G20 right AC. Patient maintains SpO2 saturation greater than 95% on room air. 21:14 Wes Lopez MD is Attending Physician. ps1 22:01 CXR XRAY In Process Unspecified. EDMS 22:09 CT Head C Spine In Process Unspecified. EDMS 08 03:[address] In Process Unspecified. EDMS 04:44 Patient has correct armband on for positive identification. Bed in low position. Call bb light in reach. Side rails up X2. playground monitor on. Pulse ox on. NIBP on. Warm blanket given. 04:44 No provider procedures requiring assistance completed. bb 05:26 IV discontinued, intact, bleeding controlled, No redness/swelling at site. Pressure bb dressing applied. Administered Medications: No medications were administered Output: 01:58 Urine: 750ml (Voided); Total: 750ml. rr5 Outcome: 05:08 Discharge ordered by . ps1 05:26 Discharged to home via wheelchair. bb 05:26 Condition: stable 05:26 Discharge instructions given to patient, Instructed on discharge instructions, Demonstrated understanding of instructions, follow-up care, medications, Prescriptions given X 1. 05:31 Patient left the ED. bb Signatures: Dispatcher [employer] Ashley Gallego RN RN bb Wes Lopez MD MD ps1 Roque, Raymond, RN RN rr5
--- NOTE | 2018-11-25 05:09 | EDPHYS ---
Physician Documentation [facility] Name: Tal Cornejo Age: 73 yrs Sex: Male : 1945 Arrival Date: 11/24/2018 Time: 20:[address] Private MD: ED Physician Wes Lopez HPI: 11/25 05:03 This 73 yrs old Black Male presents to ER via EMS with complaints of Chest Pain, Fall ps1 Injury. 05:03 patient locked keys out of house and went through a window several days ago. Landed on ps1 head and now has chest and neck pain. Hit top of his head. No neuro complaints but hard to breathe. Pain is intermittent and rated as mild. Patient on Xarelto for PE. States the pain is localized to ribs and intercostal spaces on left. . Historical: - Allergies: 11/24 21:00 No Known Allergies; rr5 - Home Meds: 21:00 Allopurinol Oral [Active]; Ambien Oral [Active]; Furosemide Oral [Active]; losartan 100 rr5 mg Oral tab 1 tab once daily [Active]; Metformin Oral [Active]; Xarelto Oral [Active]; atorvastatin oral oral [Active]; - PMHx: 21:00 Diabetes - NIDDM; DVT; Gout; Hyperlipidemia; Hypertension; LYMPHODEMA; rr5 - PSHx: 21:00 femur surgery; rr5 - Immunization history:: Adult Immunizations unknown. - Social history:: Smoking status: Patient/guardian denies using tobacco, Patient uses alcohol, occasionally. Patient/guardian denies using street drugs. - Ebola Screening: : Patient negative for fever greater than or equal to 101.5 degrees Fahrenheit, and additional compatible Ebola Virus Disease symptoms Patient denies exposure to infectious person Patient denies travel to an Ebola-affected area in the 21 days before illness onset. ROS: 11/25 05:03 Constitutional: Negative for fever, chills, and weight loss, Eyes: Negative for injury, ps1 pain, redness, and discharge, ENT: Negative for injury, pain, and discharge, Cardiovascular: Negative for chest pain, palpitations, and edema, Respiratory: Negative for shortness of breath, cough, wheezing, and pleuritic chest pain, Abdomen/GI: Negative for abdominal pain, nausea, vomiting, diarrhea, and constipation, Skin: Negative for injury, rash, and discoloration, Neuro: Negative for headache, weakness, numbness, tingling, and seizure. Neck: Positive for stiffness, tenderness. MS/extremity: Positive for tenderness, of the chest. Exam: 05:03 Constitutional: This is a well developed, well nourished patient who is awake, alert, ps1 and in no acute distress. Head/Face: Normocephalic, atraumatic. Eyes: Pupils equal round and reactive to light, extra-ocular motions intact. Lids and lashes normal. Conjunctiva and sclera are non-icteric and not injected. Cardiovascular: Regular rate and rhythm. No gallops, murmurs, or rubs. Normal PMI, no JVD. No pulse deficits. Respiratory: Lungs have equal breath sounds bilaterally, clear to auscultation and percussion. No rales, rhonchi or wheezes noted. No increased work of breathing, no retractions or nasal flaring. Skin: Warm, dry with normal turgor. Normal color with no rashes, no lesions, and no evidence of cellulitis. MS/ Extremity: Pulses equal, no cyanosis. Neurovascular intact. Full, normal range of motion. Neuro: Awake and alert, GCS 15, oriented to person, place, time, and situation. Cranial nerves II-XII grossly intact. Sensory grossly intact. Psych: Awake, alert, with orientation to person, place and time. Behavior, mood, and affect are within normal limits. 05:03 Neck: External neck: is normal, C-spine: appears grossly normal, no vertebral tenderness, no crepitus, ROM/movement: is normal. 05:03 Chest/axilla: Inspection: normal, Palpation: tenderness, that is mild, of the anterior aspect of left upper chest, that totally reproduces the patient's complaints, Axilla: Vital Signs: 11/24 21:00 BP 149 / 78; Pulse 75; Resp 20; Temp 97.9; Pulse Ox 98% ; Weight 121.56 kg; Height 6 rr5 ft. 1 in. (185.42 cm); Pain 6/10; 22:00 BP 159 / 83; Pulse 75; Resp 19; Pulse Ox 99% on R/A; rr5 23:00 BP 142 / 71; Pulse 69; Resp 17; Pulse Ox 100% ; rr5 08/06 00:00 BP 133 / 52; Pulse 66; Resp 17; Pulse Ox 98% on R/A; rr5 01:00 BP 147 / 71; Pulse 66; Resp 20; Pulse Ox 99% ; rr5 02:00 BP 157 / 91; Pulse 67; Resp 18; Temp 98; Pulse Ox 100% ; rr5 02:36 BP 153 / 81; Pulse 69; Resp 16; Pulse Ox 100% ; rr5 04:44 BP 155 / 79; Pulse 73; Resp 18 S; Pulse Ox 100% on R/A; bb 11/24 21:00 Body Mass Index 35.36 (121.56 kg, 185.42 cm) rr5 MDM: 11/24 21:32 Patient medically screened. ps1 11/25 05:11 Data reviewed: vital signs, nurses notes, lab test result(s), radiologic studies, CT ps1 scan, and as a result, I will discharge patient. Counseling: I had a detailed discussion with the patient and/or guardian regarding: the historical points, exam findings, and any diagnostic results supporting the discharge/admit diagnosis, radiology results, the need for outpatient follow up, to return to the emergency department if symptoms worsen or persist or if there are any questions or concerns that arise at home. 11/24 21:36 Order name: CBC with Diff; Complete Time: 22:43 ps1 11/24 21:36 Order name: Magnesium; Complete Time: 22:12 ps1 11/24 21:36 Order name: NT PRO-BNP; Complete Time: 22:12 ps1 11/24 21:36 Order name: PT-INR; Complete Time: 22:04 ps1 11/24 21:36 Order name: Troponin (emerg Dept Use Only); Complete Time: 22:12 ps1 11/24 21:36 Order name: CMP; Complete Time: 22:12 ps1 11/24 21:32 Order name: CT Head C Spine ps1 11/24 21:32 Order name: CXR XRAY ps1 11/24 21:36 Order name: EKG; Complete Time: 21:38 ps1 11/24 21:36 Order name: Cardiac monitoring; Complete Time: 22:06 ps1 11/24 21:36 Order name: EKG - Nurse/Tech; Complete Time: 22:06 ps1 11/24 22:26 Order name: Manual Differential; Complete Time: 22:43 EDMS 11/25 00:57 Order name: Chest Wo Con CT ps1 11/24 21:36 Order name: IV Saline Lock; Complete Time: 22:06 ps1 11/24 21:36 Order name: Labs collected and sent; Complete Time: 22:06 ps1 11/24 21:36 Order name: O2 Per Protocol; Complete Time: 22:05 ps1 11/24 21:36 Order name: O2 Sat Monitoring; Complete Time: 22:05 ps1 Administered Medications: No medications were administered Disposition: 11/25/18 05:08 Discharged to Home. Impression: Cervicalgia, Intercostal pain. - Condition is Stable. - Discharge Instructions: Rib Contusion, Muscle Strain, Incentive Spirometer. - Prescriptions for Robaxin 500 mg Oral Tablet - take 2 tablet by ORAL route every 6 hours As needed; 40 tablet. - Medication Reconciliation Form, Thank You Letter, Antibiotic Education, Prescription Opioid Use form. - Follow up: Private Physician; When: As needed; Reason: Further diagnostic work-up, Recheck today's complaints, Continuance of care. Follow up: Emergency Department; When: As needed; Reason: Fever > 102 F, Trouble breathing, Worsening of condition. - Problem is new. - Symptoms have improved. Signatures: Dispatcher [employer] [facility] Ashley Delaney RN RN bb Wes Lopez MD MD ps1 Gabriel Caceres RN RN rr5 Corrections: (The following items were deleted from the chart) 11/24 22:26 22:00 CBC Smear Scan ordered. [facility] 11/25 05:31 05:08 11/25/2018 05:08 Discharged to Home. Impression: Cervicalgia; Intercostal pain. bb Condition is Stable. Forms are Medication Reconciliation Form, Thank You Letter, Antibiotic Education, Prescription Opioid Use. Follow up: Private Physician; When: As needed; Reason: Further diagnostic work-up, Recheck today's complaints, Continuance of care. Follow up: Emergency Department; When: As needed; Reason: Fever > 102 F, Trouble breathing, Worsening of condition. Problem is new. Symptoms have improved. ps1
[2018-11-25 06:10] VITALS: TEMP 98; O2SAT 100
[2018-11-25 06:12] VITALS: BP 155/79
--- NOTE | 2018-11-25 07:35 | EKG ---
Test Date: 2018-11-24 Test Time: 20:46:36 Fishing Vessel Mate: RR MEASUREMENT RESULTS: Intervals: Rate: 75 FL: 146 QRSD: 82 QT: 416 QTc: 464 [place]: P: 31 FL: 146 QRS: -7 T: 16 INTERPRETIVE STATEMENTS: Normal sinus rhythm Voltage criteria for left ventricular hypertrophy Abnormal ECG Compared to ECG 09/08/2017 10:44:57 No significant changes Electronically Signed On 11-25-18 07:33:56 CDT by Walt Mera
--- NOTE | 2018-11-25 08:45 | RAD REPORT ---
EXAM DESCRIPTION: Syeda Single View11/24/2018 9:59 pm CLINICAL HISTORY: Chest pain COMPARISON: August 2017 FINDINGS: The lungs appear clear of acute infiltrate. The heart is mildly enlarged The aorta is tortuous/ectatic IMPRESSION: No acute abnormalities displayed
--- NOTE | 2018-11-25 09:37 | RAD REPORT ---
EXAM DESCRIPTION: CT - Thorax Wo Cristobal - 11/25/2018 6:11 am CLINICAL HISTORY: 73-year-old male with rib fracture, chest pain when breathing, history of fall fiv e days ago TECHNIQUE: Axial CT imaging of the chest was performed without intravenous contrast. Sagittal and coronal reconstructed images were then performed. The CT study is performed according to ALARA (as lo w as reasonably achievable) or ALARA/IMAGE GENTLY, with automatic adjustment of mA and/or kV accordin g to patient size. Performed on: 11/25/2018 at 3:05 AM COMPARISON: None. FINDINGS: CT CHEST: Lungs: The lungs are well expanded. There is minimal patchy parenchymal opacification in the right lo wer lobe likely reflecting fibrosis and/or atelectasis. The lungs are otherwise clear. There are no p leural effusions. There is no evidence of a pneumothorax. Heart: The heart is mildly enlarged. There is no pericardial effusion. Mediastinum: The mediastinum is unremarkable. There is borderline dilatation of the ascending thora cic aorta which measures 4 cm in maximum diameter. There are mild atherosclerotic calcifications bigg g the thoracic aorta and coronary arteries. There also appear to be mild aortic valve calcifications. Bones: No acute osseous abnormalities are identified. There are multiple old healed right-sided rib f ractures. No definite acute rib fracture is identified at this time. Soft tissues: No focal soft tissue abnormalities are identified. Lymphadenopathy: No pathologic hilar, mediastinal or axillary lymphadenopathy is identified. Upper abdomen: There is bilateral punctate nephrolithiasis. There appears to be a small left parapelv ic renal cyst. There is cholelithiasis without definite biliary ductal dilatation. The adrenal glands are normal in size and configuration. The visualized pancreas is unremarkable. There is a small to m oderate fat-containing ventral umbilical hernia which is incompletely evaluated on this study. IMPRESSION: 1. Normal contrast enhanced CT scan of the chest 2. Suspect minimal fibrosis and/or atelectasis in the right lower lobe. 3. Mild cardiomegaly. 4. Borderline dilatation of the ascending thoracic aorta which measures 4 cm in diameter. 5. Old right-sided rib fractures. No acute rib fracture identified at this time. 6. Punctate bilateral nephrolithiasis. 7. Cholelithiasis without evidence of biliary ductal dilatation. 8. Incompletely visualized fat-containing ventral umbilical hernia. Electronically signed by: Ruth Negron DO 11/25/2018 4:48 AM CDT Due to temporary technical issues with the PACS/Fluency reporting system, reports are being signed by the in house radiologist as a courtesy to ensure prompt reporting. The interpreting radiologist is f ully responsible for the content of the report.
--- NOTE | 2018-11-25 10:20 | RAD REPORT ---
EXAM DESCRIPTION: CT - Head C Spine Mpr Wo Con - 11/25/2018 6:15 am CLINICAL HISTORY: Fall COMPARISON: None. TECHNIQUE: CT HEAD NECK WITHOUT IV CONTRAST on 11/24/2018 9:32 PM CDT This exam was performed according to our departmental dose-optimization program, which includes autom ated exposure control, adjustment of the mA and/or kV according to patient size and/or use of iterati ve reconstruction technique. FINDINGS: There is no acute hemorrhage, mass effect or midline shift. Mays-white differentiation is preserved. There is no hydrocephalus. There is no significant volume loss for age. There are mild pat sonny hypodensities within the periventricular and subcortical white matter, consistent with microangio pathic ischemic changes. The calvarium is intact. Orbits and globes are unremarkable. The paranasal sinuses are clear. Mastoid air cells are clear. There is no acute fracture. Alignment is anatomic. There is mild diffuse facet arthritis. Disc spaces are maintained. Vertebral body heights are preserved. Soft tissues are unremarkable. IMPRESSION: No definite posttraumatic findings. Electronically signed by: Zeke Patterson MD 11/24/2018 10:39 PM CDT Due to temporary technical issues with the PACS/Fluency reporting system, reports are being signed by the in house radiologist as a courtesy to ensure prompt reporting. The interpreting radiologist is f ully responsible for the content of the report.
== END 2018-11-25 05:31 | disposition home or self-care (01) ==
LOC: ER 20:40
DX: R07.82 Intercostal pain (principal); W19.XXXA Unspecified fall, initial encounter; Y93.89 Activity, other specified; Y92.009 Unspecified place in unspecified non-institutional (private) residence as the place of occurrence of the external cause; Z79.01 Long term (current) use of anticoagulants; Z86.718 Personal history of other venous thrombosis and embolism; I10 Essential (primary) hypertension; E78.5 Hyperlipidemia, unspecified; E11.9 Type 2 diabetes mellitus without complications
CPT/HCPCS: 36415; 70450; 71045; 71250; 72125; 80053; 83735; 83880; 84484; 85025; 85610; 93005; 99285

== ENCOUNTER 2019-04-06 08:20 | Observation (INO) | payer OTHER ==
[2019-04-06 09:00] LABS: Absolute Lymphocytes (CBC) 1.8 K/uL (0.7-4.9); Basophils % 0.6 % (0-1.3); Hematocrit 35.3 % (39.6-49.0); Lymphocytes % 20.9 % (15.3-44.8); MPV 9.2 fL (7.6-11.3)
[2019-04-06 09:09] LABS: Protime INR 1.19
[2019-04-06 09:19] LABS: Albumin 3.7 g/dL (3.4-5.0); Bilirubin Direct 0.3 mg/dL (0-0.2); Bilirubin Total 1.1 mg/dL (0.2-1.0); Magnesium 2.2 mg/dL (1.8-2.4); Protein, Total 7.5 g/dL (6.4-8.2); Troponin (Emerg Dept Use Only) 0.02 ng/mL (0.0-0.045)
--- NOTE | 2019-04-06 09:41 | ER ---
Nurse's Notes [facility] Name: Tal Cornejo Age: 73 yrs Sex: Male : 1945 Arrival Date: 04/06/2019 Time: 08:28 Bed 7 Private MD: Diagnosis: Chest pain, unspecified Presentation: 04/06 08:29 Presenting complaint: Patient states: Chest pain and shortness of breath that began ss while walking from [place] to [place] early this AM. Nitro SL x3 administered, 1 inch Nitro paste and 81 mg ASA x4 given en route to ED. Pt reports that SOB has subsided and CP is improving. Transition of care: patient was not received from another setting of care. Onset of symptoms was April 06, 2019. Risk Assessment: Do you want to hurt yourself or someone else? Patient reports no desire to harm self or others. Initial Sepsis Screen: Does the patient meet any 2 criteria? No. Patient's initial sepsis screen is negative. Does the patient have a suspected source of infection? No. Patient's initial sepsis screen is negative. Care prior to arrival: IV initiated. 20 GA, in the right antecubital area, Glucose check: 118. 08:29 Method Of Arrival: Ambulatory ss 08:29 Acuity: MARTITA 3 ss Historical: - Allergies: 08:31 No Known Allergies; ss - Home Meds: 10:53 Allopurinol Oral [Active]; Ambien Oral [Active]; atorvastatin Oral [Active]; Furosemide ph Oral [Active]; losartan 100 mg Oral tab 1 tab once daily [Active]; Metformin Oral [Active]; Xarelto Oral [Active]; - PMHx: 08:31 Diabetes - NIDDM; DVT; Gout; Hypertension; Hyperlipidemia; LYMPHODEMA; PE; ss - PSHx: 08:31 femur surgery; ss - Immunization history:: Adult Immunizations unknown. - Social history:: Smoking status: Patient/guardian denies using tobacco, Patient/guardian denies using alcohol, street drugs, The patient lives with family. - Ebola Screening: : Patient denies exposure to infectious person Patient denies travel to an Ebola-affected area in the 21 days before illness onset. - Family history:: not pertinent. Screenin:45 Abuse screen: Denies threats or abuse. Denies injuries from another. Nutritional jl7 screening: No deficits noted. Tuberculosis screening: No symptoms or risk factors identified. Fall Risk IV access (20 points). Total Leigh Fall Scale indicates No Risk (0-24 pts). Assessment: 08:45 General: Appears in no apparent distress. uncomfortable, Behavior is calm, cooperative, jl7 appropriate for age. Pain: Complains of pain in chest Pain does not radiate. Pain currently is 0 out of 10 on a pain scale. at worst was 8 out of 10 on a pain scale. Quality of pain is described as pressure, Pain began suddenly, Is continuous. Neuro: Level of Consciousness is awake, alert, obeys commands, Oriented to person, place, time, situation. Cardiovascular: Heart tones present Patient's skin is warm and dry. Rhythm is regular. Respiratory: Airway is patent Respiratory effort is even, unlabored, Respiratory pattern is regular, symmetrical, Breath sounds are clear bilaterally. Derm: Skin is dry, Skin is normal, Skin temperature is warm. 10:29 Reassessment: Pt requested water and a snack, both provided at this time per Dr. aline Daniel. 10:59 Reassessment: Patient appears in no apparent distress at this time. Patient and/or ph family updated on plan of care and expected duration. Pain level reassessed. Patient is alert, oriented x 3, equal unlabored respirations, skin warm/dry/pink. Report called to MYRON Flowers on 4th floor, pre[paring pt to be taken to room. Vital Signs: 08:29 BP 144 / 72; Pulse 88; Resp 17; Temp 98.9(TE); Pulse Ox 95% on R/A; Weight 117.93 kg; ss Height 6 ft. 1 in. (185.42 cm); Pain 6/10; 08:32 Pain 5/10; ss 08:57 BP 130 / 76; Pulse 79; Resp 15 S; Pulse Ox 95% on R/A; Pain 0/10; jl7 10:00 BP 147 / 84; Pulse 77; Resp 16; Pulse Ox 96% on R/A; ph 10:49 BP 143 / 91; Pulse 80; Resp 18; Temp 98.2; Pulse Ox 96% on R/A; ph 08:29 Body Mass Index 34.30 (117.93 kg, 185.42 cm) ED Course: 08:28 Patient arrived in ED. ss 08:29 Arm band placed on right wrist. ss 08:30 Triage completed. ss 08:37 Ibeth Daniel MD is Attending Physician. ma2 08:39 EKG done, by analytical technician. reviewed by Ibeth Daniel MD. at1 08:40 Wallace Arellano, RN is Primary Nurse. jl7 08:45 Patient has correct armband on for positive identification. school lunch monitor on. Pulse jl7 ox on. NIBP on. Warm blanket given. 08:45 Initial lab(s) drawn, by ar, sent to lab. Maintain EMS IV. Dressing intact. Good blood jl7 return noted. Site clean \T\ dry. Gauge \T\ site: 20 right AC. Patient maintains SpO2 saturation greater than 95% on room air. 09:40 Td Ford MD is Hospitalizing Provider. ma2 10:50 No provider procedures requiring assistance completed. Patient admitted, IV remains in ph place. Administered Medications: No medications were administered Outcome: 09:41 Decision to Hospitalize by Provider. ma2 11:00 Admitted to Tele accompanied by [facility], via wheelchair, room 423, with chart. ph 11:00 Condition: good 11:10 Patient left the ED. jl7 Signatures: Latoya Russell, MYRON RN Bernice Goldberg, diamond driller helper EKG Tat1 Bruna Escoto, MYRON RN Wallace Arellano, RN RN jl7 Ibeth Daniel MD MD in2 Corrections: (The following items were deleted from the chart) 08:32 08:29 Care prior to arrival: None. ss ss
--- NOTE | 2019-04-06 09:42 | EDPHYS ---
Physician Documentation [facility] Name: Tal Cornejo Age: 73 yrs Sex: Male : 1945 Arrival Date: 04/06/2019 Time: 08:28 Bed 7 Private MD: ED Physician Ibeth Daniel HPI: 04/06 09:38 This 73 yrs old Black Male presents to ER via Ambulatory with complaints of Chest Pain ma2 > 30 y/o. 09:38 Onset: gradually, 1 day(s) ago. Associated signs and symptoms: Pertinent negatives: ma2 cough, dizziness, lower extremity swelling, lightheadedness. Severity of pain: At its worst the pain was mild in the emergency department the pain has resolved. The patient has experienced similar episodes in the past. hx of PE or xarelto, here with chest pain . Historical: - Allergies: 08:31 No Known Allergies; ss - Home Meds: 10:53 Allopurinol Oral [Active]; Ambien Oral [Active]; atorvastatin Oral [Active]; Furosemide ph Oral [Active]; losartan 100 mg Oral tab 1 tab once daily [Active]; Metformin Oral [Active]; Xarelto Oral [Active]; - PMHx: 08:31 Diabetes - NIDDM; DVT; Gout; Hypertension; Hyperlipidemia; LYMPHODEMA; PE; ss - PSHx: 08:31 femur surgery; ss - Immunization history:: Adult Immunizations unknown. - Social history:: Smoking status: Patient/guardian denies using tobacco, Patient/guardian denies using alcohol, street drugs, The patient lives with family. - Ebola Screening: : Patient denies exposure to infectious person Patient denies travel to an Ebola-affected area in the 21 days before illness onset. - Family history:: not pertinent. ROS: 09:38 Constitutional: Negative for fever, chills, and weight loss. ma2 09:38 All other systems are negative. Exam: 09:38 Constitutional: This is a well developed, well nourished patient who is awake, alert, ma2 and in no acute distress. Chest/axilla: Normal chest wall appearance and motion. Nontender with no deformity. No lesions are appreciated. Cardiovascular: Regular rate and rhythm with a normal S1 and S2. No gallops, murmurs, or rubs. Normal PMI, no JVD. No pulse deficits. Respiratory: Lungs have equal breath sounds bilaterally, clear to auscultation and percussion. No rales, rhonchi or wheezes noted. No increased work of breathing, no retractions or nasal flaring. Abdomen/GI: Soft, non-tender, with normal bowel sounds. No distension or tympany. No guarding or rebound. No evidence of tenderness throughout. MS/ Extremity: Pulses equal, no cyanosis. Neurovascular intact. Full, normal range of motion. Neuro: Awake and alert, GCS 15, oriented to person, place, time, and situation. Cranial nerves II-XII grossly intact. Motor strength 5/5 in all extremities. Sensory grossly intact. Cerebellar exam normal. Normal gait. Vital Signs: 08:29 BP 144 / 72; Pulse 88; Resp 17; Temp 98.9(TE); Pulse Ox 95% on R/A; Weight 117.93 kg; ss Height 6 ft. 1 in. (185.42 cm); Pain 6/10; 08:32 Pain 5/10; ss 08:57 BP 130 / 76; Pulse 79; Resp 15 S; Pulse Ox 95% on R/A; Pain 0/10; jl7 10:00 BP 147 / 84; Pulse 77; Resp 16; Pulse Ox 96% on R/A; ph 10:49 BP 143 / 91; Pulse 80; Resp 18; Temp 98.2; Pulse Ox 96% on R/A; ph 08:29 Body Mass Index 34.30 (117.93 kg, 185.42 cm) ss MDM: 08:38 Patient medically screened. ma2 09:38 Differential diagnosis: acute myocardial infarction, anxiety, coronary artery disease ma2 gastroesophageal reflux disease (GERD), pulmonary embolus. HEART Score: History: Moderately Suspicious (1), ECG: Non specific repolarization disturbance / LBTB / PM (1). Data reviewed: vital signs, nurses notes. Counseling: I had a detailed discussion with the patient and/or guardian regarding: the historical points, exam findings, and any diagnostic results supporting the discharge/admit diagnosis, the presence of at least one elevated blood pressure reading (>120/80) during this emergency department visit, the need for outpatient follow up, chest pain resolved, likely d/t PE, unlikely massive PE because his vs are wnl, his Cr is elevated will not re-scan his chest.. given lovenox,, will admit for acs rule out . 04/06 08:39 Order name: Basic Metabolic Panel va2 04/06 08:39 Order name: CBC with Diff ma2 04/06 08:39 Order name: LFT's ma2 04/06 08:39 Order name: Magnesium va2 04/06 08:39 Order name: NT PRO-BNP va2 04/06 08:39 Order name: PT-INR va2 04/06 08:39 Order name: Troponin (emerg Dept Use Only) va2 04/06 09:13 Order name: CBC with Automated Diff EDMS 04/06 09:15 Order name: Protime (+INR); Complete Time: 09:34 EDMS 04/06 09:19 Order name: Basic Metabolic Panel; Complete Time: 09:34 EDMS 04/06 09:19 Order name: Liver (Hepatic) Function; Complete Time: 09:34 EDMS 04/06 09:19 Order name: Troponin (Emerg Dept Use Only); Complete Time: 09:34 EDMS 04/06 09:19 Order name: NT PRO-BNP; Complete Time: 09:34 EDMS 04/06 09:19 Order name: Magnesium; Complete Time: 09:34 EDMS 04/06 08:39 Order name: EKG; Complete Time: 08:41 ma2 04/06 08:39 Order name: Cardiac monitoring; Complete Time: 08:54 ma2 04/06 08:39 Order name: EKG - Nurse/Tech; Complete Time: 08:54 ma2 04/06 08:39 Order name: IV Saline Lock; Complete Time: 08:54 ma2 04/06 08:39 Order name: Labs collected and sent; Complete Time: 08:55 ma2 04/06 08:39 Order name: O2 Per Protocol; Complete Time: 08:55 ma2 04/06 08:39 Order name: O2 Sat Monitoring; Complete Time: 08:55 ma2 04/06 08:39 Order name: CT Chest For PE Angio va2 04/06 09:56 Order name: CBC Smear Scan EDMS 04/06 10:53 Order name: RAD EDMS Administered Medications: No medications were administered Disposition: 04/06/19 09:41 Hospitalization ordered by Td Ford for Observation. Preliminary diagnosis is Chest pain, unspecified. - Bed requested for Telemetry/MedSurg (observation). - Status is Observation. jl7 - Condition is Stable. - Problem is new. - Symptoms are unchanged. UTI on Admission? No Signatures: Dispatcher [employer] EDMS May Luther bd Latoya Russell, RN RN Bruna Escoto, RN RN Wallace Arellano, RN RN jl7 Ibeht Daniel MD MD ma2 Corrections: (The following items were deleted from the chart) 10:44 09:41 Hospitalization Ordered by Td Ford MD for Observation. Preliminary diagnosis bd is Chest pain, unspecified. Bed requested for Telemetry/MedSurg (observation). Status is Observation. Condition is Stable. Problem is new. Symptoms are unchanged. UTI on Admission? No. ma2 11:10 10:44 04/06/2019 09:41 Hospitalization Ordered by Td Ford MD for Observation. jl7 Preliminary diagnosis is Chest pain, unspecified. Bed requested for Telemetry/MedSurg (observation). Status is Observation. Condition is Stable. Problem is new. Symptoms are unchanged. UTI on Admission? No. bd
[2019-04-06 09:54] LABS: Anisocytosis 2+; Blood Morphology Comment NOTED (NOT SEEN); Platelet Estimate ADEQ; Urine White Blood Cell Casts OK
[2019-04-06 09:55] LABS: Hypochromasia 1+
--- NOTE | 2019-04-06 10:29 | RAD REPORT ---
EXAM DESCRIPTION: Syeda Single View04/06/2019 9:56 am CLINICAL HISTORY: Chest pain COMPARISON: November 2018 FINDINGS: The lungs appear clear of acute infiltrate. The heart is mildly enlarged IMPRESSION: No acute abnormalities displayed
--- NOTE | 2019-04-06 10:40 | EKG ---
Test Date: 2019-04-06 Test Time: 08:24:04 Dining Server: JENNIE MEASUREMENT RESULTS: Intervals: Rate: 87 MS: 144 QRSD: 78 QT: 388 QTc: 466 Mcbrides: P: 20 MS: 144 QRS: -16 T: 35 INTERPRETIVE STATEMENTS: Normal sinus rhythm Possible Left atrial enlargement Left ventricular hypertrophy Abnormal ECG Compared to ECG 11/24/2018 20:46:36 No significant changes Electronically Signed On 04-06-19 10:39:38 [employer] by Walt Mera
[2019-04-06] MEDS ORDERED: NITROGLYCERIN 0.4 MG/TAB SL PRN (10:59)
[2019-04-06] MEDS ORDERED: ACETAMINOPHEN 500 MG TAB PO PRN (10:59)
[2019-04-06] MEDS ORDERED: MORPHINE 2 MG/ML SYR IV PRN (10:59)
[2019-04-06] MEDS: INSULIN -REGULAR HUMAN 50 UNIT/0.5 ML ML SQ SCH ×3 (11:30→20:39)
[2019-04-06 11:49] VITALS: BMI 34.7
--- NOTE | 2019-04-06 14:52 | RAD REPORT ---
EXAM DESCRIPTION: NM - Vent Perfusion VQ Scan - 04/06/2019 2:37 pm CLINICAL HISTORY: R/O PE COMPARISON: No comparisons TECHNIQUE: 21mCi Xe-133 gas inhaled and 7.5mCi Tc-MAA IV. Planar ventilation scan was performed in posterior projection after Xe-133 gas inhalation (wash-in, e quilibrium, and wash-out phases) followed by perfusion scan with Tc-MAA IV in multiple projections. Examination is correlated with recent chest radiograph. FINDINGS: Normal ventilation with appropriate wash-out and no significant air-trapping. No mismatched segmental perfusion defect. IMPRESSION: Very low probability of acute pulmonary embolism.
[2019-04-06] MEDS: RIVAROXABAN 20 MG TABLET PO SCH (16:28)
--- NOTE | 2019-04-06 17:54 | CON ---
History Of Present Illness: Mr. Cornejo is 73. Today, he started having chest pain. He was walking. Apparently, he had to walk quite a great distance, started to get short of breath and have the ches t pain. He has had similar feelings before, but this was more severe. I cannot tell if he is saying it is more severe because he walked further and did not stop like he usually does, often occurred mo re easily. In any event, he called for help, was brought to the hospital, and all of his symptoms kimball d resolved by the time EMS picked him up. He is having no chest pain now. He has no prior history o f heart disease. He does have diabetes and a history of hypertension and deep vein thrombosis. Medications: He takes Xarelto 20 mg a day. His other medications are Levitra, metoprolol, rivaroxab an, metformin. Rivaroxaban and Xarelto of course are the same. Allergies: HE HAS NO DRUG ALLERGIES. Social History: He does not use tobacco. No illegal drugs. Alcohol use, moderate. Physical Examination: General: 6 feet 1 inch, 263 pounds, obese, alert, oriented, pleasant, not in distress. Lungs: Clear. Heart: Significant for a systolic murmur. It is a grade 2/6 musical crescendo-decrescendo high-pitc hed murmur consistent with aortic stenosis, although probably mild. There is no gallop. No diastoli c murmur. Abdomen: Soft. Extremities: Reveal 2 to 3+ edema, chronic venous stasis changes, and non palpable pulses. Data Reviewed: His electrocardiogram shows sinus rhythm, left ventricular hypertrophy. It is unchan ged from EKGs from 4 months ago. Impression: My impression is the patient may have angina. His enzymes are normal. It is not an acu te myocardial infarction. His angina seems to be chronic stable angina or perhaps unstable because i t is worsening easier to provoke. In any event, I think an echocardiogram would be good for us to do to assess his aortic valve and LV function, a nuclear stress test to assess myocardial perfusion. H e would prefer to do that before launching right into a cardiac cath, which may need to be done based on the results of our testing. MARYAM Voice ID: [id number] Report ID: [id number]
[2019-04-06 18:35] LABS: Urine Appearance CLOUDY; Urine Bilirubin NEGATIVE (NEG); Urine Blood NEGATIVE (NEG); Urine Color YELLOW; Urine Glucose NEGATIVE (NEG); Urine Protein NEGATIVE (NEG); Urine Urobilinogen 0.2 mg/dL (0.2-1.0)
[2019-04-06 18:49] LABS: Urine Microscopic Reflex ORDER UMIC
[2019-04-06 19:08] LABS: Urine Amorphous Sediment TRACE /HPF (NONE SEEN); Urine Bacteria 20-50 /HPF (NONE SEEN); Urine Culture Reflex Order REFLEXED; Urine RBC <5 /HPF (NONE SEEN)
[2019-04-06] MEDS: METOPROLOL TAR 25 MG TAB PO SCH (20:38)
[2019-04-06] MEDS: ATORVASTATIN 40 MG TAB PO SCH (20:39)
--- NOTE | 2019-04-06 23:08 | HP ---
Date of Admission: 04/06/2019 Consultants: Walt Mera MD with Cardiology. Chief Complaint: Chest pain. Code Status: Full. History Of Present Illness: Patient is a 73-year-old male with past medical history of hypertension; hyperlipidemia; diabetes mellitus type 2, non-insulin- requiring with history of previous DVT and PE, on anticoagulation with Xarelto, who was in his usual state of health until day of admission when the patient had sudden onset of chest pain. Patient also reported some shortness of breath. Chest pain was in the middle of the chest, sharp, nonradiating, not associated with any nausea or vomiting. Patient denies any fevers, chills, cough. No sputum production. Has chronic swelling of his lower extremities, right worse than left. No other alleviating factors. No aggravating factors. Patient's symptoms were constant, moderate, and progressively worsening. Therefore, he came into the ER for further evaluation. His workup revealed negative troponin level. Creatinine was 1.65. White blood cell count was normal. His D-dimer however was 1648. CT angio was not able to be done due to his kidney dysfunction. Therefore, V/Q scan was ordered. Patient's chest x- ray was clear. Patient was then referred for admission. When seen in the ER, he was awake, alert, oriented x3, complaining of some chest discomfort. Past Medical History: Hypertension, history of DVT in both legs after right leg fracture, history of pulmonary embolism, gout, renal insufficiency, non- insulin-dependent diabetes, hyperlipidemia, neuropathy. Past Surgical History: Right leg surgery due to broken femur, left wrist surgery, appendectomy, IVC filter in 2008. Allergies: NO KNOWN DRUG ALLERGIES. Medications: List reviewed. Social History: Patient denies any illicit drug use, did use illicit drugs in the past. Denies any alcohol use or tobacco use. Independent in his activities of daily living. He is . Family History: Father lived to be 99, had no problems. Review of Systems: Ten-point system reviewed, negative except as per HPI. Physical Examination: Vital Signs: Temperature 98.9, heart rate 88, blood pressure 144/72, respirations 17, O2 95% on room air. General: Awake, alert, oriented x3. Elderly male, obese, ill-appearing. HEENT: Normocephalic, atraumatic. PERRLA. EOMI. Moist mucous membranes. Oropharynx is clear. Conjunctivae are anicteric. Poor dentition. Neck: Supple. No JVD. Trachea midline. CV: S1, S2. Regular rate and rhythm. Peripheral pulses present. Respiratory: Moving air well bilaterally. No wheezing or stridor. No use of accessory muscles. Gastrointestinal: Abdomen is soft, nontender, nondistended. Positive bowel sounds. No guarding or rigidity. Extremities: No clubbing, cyanosis. Patient does have edema, right worse than left. Skin: No rashes. Normal skin turgor. Psych: Mood is okay. Affect is full. Insight and judgment are good. Laboratory Data: D-dimer 1648. INR 1.19. Sodium 144, potassium 4, chloride 111, CO2 of 27, BUN 23, creatinine 1.65, glucose 110, calcium 8.7, magnesium 2.2 , AST 16, ALT 17, alkaline phosphatase 88. Troponin less than 0.02, BNP 912, albumin 3.7. WBC 8.7, H and H 11.1 and 35.3, platelets 177, MCV 62. Chest x- ray shows no acute cardiopulmonary process. EKG shows normal sinus rhythm, rate of 87, possible left atrial enlargement, left ventricular hypertrophy. No significant changes compared to previous. Assessment: A 73-year-old male with. 1. Chest pain. We will admit to rule out acute coronary syndrome. We will obtain echocardiogram. Patient does have history of PE. Patient reporting shortness of breath. D-dimer is elevated. We will obtain V/Q scan to rule out PE. Unable to do CT angio due to elevated kidney function. Cardiology, Dr. Mera, has been consulted. 2. Essential hypertension. We will resume home medications as appropriate. 3. History of deep vein thrombosis and pulmonary embolism, currently on Xarelto. 4. Diabetes mellitus type 2, hul-idjnlsu-rpmvptcry with hyperglycemia. We will start on sliding scale insulin and monitor blood glucose levels. 5. Mixed hyperlipidemia, diet controlled. We will start on statin. Check lipid panel. 6. Obesity, BMI of 34.8. 7. Microcytic anemia, likely iron deficiency. 8. History of gout. 9. Chronic kidney disease, stage 2. Kidney function slightly above baseline of 1.3. We will continue to monitor. Continue with IV fluids. 10. Chronic lower extremity edema. 11. Diabetic neuropathy. 12. Hypertensive heart disease 13. Deep venous thrombosis prophylaxis. Patient is on Xarelto. Plan: Admit patient to Med-Surg, place as observation. SEBASTIÁN Voice ID: [id number] MTDD
[2019-04-07 04:19] LABS: Potassium 4.2 mmol/L (3.5-5.1)
[2019-04-07 04:26] LABS: Hematocrit 33.6 % (39.6-49.0); MPV 9.6 fL (7.6-11.3); RBC Red Blood Cell Count 5.43 M/uL (4.33-5.43)
[2019-04-07 05:26] LABS: Blood Morphology Comment NOTED (NOT SEEN); Hypochromasia 3+; Platelet Estimate ADEQ
[2019-04-07] MEDS: INSULIN -REGULAR HUMAN 50 UNIT/0.5 ML ML SQ SCH ×4 (07:30→20:27)
[2019-04-07] MEDS: ASPIRIN EC 81 MG TAB PO SCH (09:15)
[2019-04-07] MEDS: METOPROLOL TAR 25 MG TAB PO SCH ×2 (09:15→20:27)
[2019-04-07] MEDS: lisinopriL 10 MG TAB PO SCH (09:16)
--- NOTE | 2019-04-07 13:50 | ECHO ---
HEIGHT: 6 ft 1 in WEIGHT: 263 lb 7 oz DATE OF STUDY: 04/07/[address]: Td Ford MD 2-DIMENSIONAL: YES M.MODE: YES DOPPLER: YES COLOR FLOW: YES TDS: NO PORTABLE: NO DEFINITY: NO BUBBLE STUDY: NO DIAGNOSIS: CHEST PAIN CARDIAC HISTORY: CATHERIZATION: NO SURGERY: NO PROSTHETIC VALVE: NO PACEMAKER: NO MEASUREMENTS (cm) DIASTOLIC (NORMALS) SYSTOLIC (NORMALS) IVSd 1.3 (0.6-1.2) LA Diam 5.6 (1.9-4.0) LVEF 66% LVIDd 5.3 (3.5-5.7) LVIDs 3.3 (2.0-3.5) %FS 37% LVPWd 1.4 (0.6-1.2) Ao Diam 2.4 (2.0-3.7) 2 DIMENSIONAL ASSESSMENT: RIGHT ATRIUM: NORMAL LEFT ATRIUM: DILATED RIGHT VENTRICLE: NORMAL LEFT VENTRICLE: LEFT VENTRICULAR HYPERTROPHY TRICUSPID VALVE: NORMAL MITRAL VALVE: MITRAL ANNULAR CALCIFICATION PULMONIC VALVE: NORMAL AORTIC VALVE: STENOTIC PERICARDIAL EFFUSION: NONE AORTIC ROOT: NORMAL LEFT VENTRICULAR WALL MOTION: NORMAL DOPPLER/COLOR FLOW: MODERATE TO SEVERE AORTIC REGURGITATION. MODERATE AORTIC STENOSIS. COMMENTS: MODERATE TO SEVERE AORTIC REGURGITATION. MODERATE AORTIC STENOSIS. AORTIC VALVE AREA 1.2 CENTIMETERS SQUARED. NORMAL LEFT VENTRICULAR EJECTION FRACTION. LEFT VENTRICULAR HYPERTROPHY. MITRAL ANNULAR CALCIFICATION/ TECHNOLOGIST: Mohamud PEREZ
[2019-04-07] MEDS: RIVAROXABAN 20 MG TABLET PO SCH (16:40)
--- NOTE | 2019-04-07 17:31 | PN ---
Date of Progress Note: 04/06/[address] Ford on 04/06/[address] Montalvo for chest pain. Echocardiogram and Ramila can are pending. On examination, the patient had a very loud heart murmur, probably a combination of aortic sclerosis and aortic regurgitation. He has an S4 murmur he has a creatinine of 1. 65. He is a diabetic, on metformin. We will await the results of the echo and Lexiscan today to marleni e any further decision. Overnight, he had no chest pain and he is in sinus rhythm. We will continue to follow. CRISTINO Voice ID: [id number] Report ID: [id number]
--- NOTE | 2019-04-07 17:52 | PN ---
Date of Progress Note: 04/07/2019 Subjective: The patient was seen and examined, chart reviewed, and case discussed with RN and Dr. Kade bills. Patient is unable to have stress test today due to nuclear medicine still in his system from the V/Q scan. Patient states his chest pain is better. Medications: List reviewed. Physical Examination: Vital Signs: Temperature 97.4, heart rate 59, blood pressure 132/74, respirations 18, O2 of 98% on r oom air. General: Awake, alert, oriented x3, not in any acute distress, elderly male, obese. CV: S1, S2. Regular rate and rhythm. Peripheral pulses present. Respiratory: Moving air well bilaterally. No wheezing or stridor. No use of accessory muscles. Gastrointestinal: Abdomen is soft, nontender, nondistended. Positive bowel sounds. Extremities: No clubbing, cyanosis, or edema. Neurologic: Nonfocal. Laboratory Data: Sodium 143, potassium 4.2, chloride 113, CO2 of 28, BUN 25, creatinine 1.34, glucos e 90, calcium 8.2. Triglycerides 30, cholesterol 188, LDL 107, HDL 75. Lung V/Q scan shows very low probability of acute pulmonary embolism. Echocardiogram shows EF of 66%, moderate to severe aortic regurgitation, moderate aortic stenosis, aortic valve area is 1.2 cm sq, normal left ventricular ejec tion fraction 66%, left ventricular hypertrophy, mitral annular calcification. Assessment: A 73-year-old male with: 1.Chest pain. Acute coronary syndrome has been ruled out. Echocardiogram shows normal ejection fra ction. Patient does have moderate aortic stenosis and left ventricular hypertrophy. Pulmonary embol ism was ruled out. V/Q scan was negative. Stress test will be scheduled for a.m. due to recent nucl ear medicine scan. 2.Essential hypertension. Continue home medications, stable. 3.History of deep venous thrombosis and pulmonary embolism, on Xarelto. 4.Diabetes mellitus type 2, non-insulin requiring with hyperglycemia. Continue sliding scale insuli n. Monitor blood glucose levels. 5.Mixed hyperlipidemia, diet controlled. Lipid panel reviewed. Continue statin. 6.Microcytic anemia, likely iron deficiency. Continue to monitor H and H. Transfuse for hemoglobin less than 7. 7.Obesity. BMI 34.8. 8.History of gout. 9.Chronic kidney disease, stage 2. Creatinine is 1.34. We will continue to monitor. Avoid NSAIDs and nephrotoxins. 10.Chronic lower extremity edema. Patient had history of deep venous thrombosis and fracture on the right lower extremity. 11.Diabetic neuropathy. 12.Deep venous thrombosis prophylaxis. Patient is on Xarelto. Plan: Stress test in a.m. Discharge if negative. /YEMI Voice ID: [id number] Report ID: [id number]
[2019-04-07] MEDS: ATORVASTATIN 40 MG TAB PO SCH (20:26)
[2019-04-08 07:03] VITALS: O2SAT 97
[2019-04-08] MEDS: INSULIN -REGULAR HUMAN 50 UNIT/0.5 ML ML SQ SCH ×2 (07:30→11:30)
[2019-04-08] MEDS ORDERED: REGADENOSON 0.4 MG/5 ML SYR IV ONE (08:05)
--- NOTE | 2019-04-08 09:23 | P.DS ---
Admission Date: 04/06/19 Discharge Date: 04/08/19 Primary Care Provider: [facility] Disposition: ROUTINE DISCHARGE Discharge Condition: GOOD Reason for Admission: Chest pain Consultations: Cardiology-Dr. Oliva Procedures: V/Q scan: COMPARISON: No comparisons TECHNIQUE: 21mCi Xe-133 gas inhaled and 7.5mCi Tc-MAA IV. Planar ventilation scan was performed in posterior projection after Xe-133 gas inhalation (wash-in, equilibrium, and wash-out phases) followed by perfusion scan with Tc-MAA IV in multiple projections. Examination is correlated with recent chest radiograph. FINDINGS: Normal ventilation with appropriate wash-out and no significant air- trapping. No mismatched segmental perfusion defect. IMPRESSION: Very low probability of acute pulmonary embolism. CXR: COMPARISON: November 2018 FINDINGS: The lungs appear clear of acute infiltrate. The heart is mildly enlarged IMPRESSION: No acute abnormalities displayed ECHO: Ejection fraction 66% LEFT VENTRICULAR WALL MOTION: NORMAL DOPPLER/COLOR FLOW: MODERATE TO SEVERE AORTIC REGURGITATION. MODERATE AORTIC STENOSIS. COMMENTS: MODERATE TO SEVERE AORTIC REGURGITATION. MODERATE AORTIC STENOSIS. AORTIC VALVE AREA 1.2 CENTIMETERS SQUARED. NORMAL LEFT VENTRICULAR EJECTION FRACTION. LEFT VENTRICULAR HYPERTROPHY. MITRAL ANNULAR CALCIFICATION/ Cardiac stress test: FINDINGS: No stress induced ischemic defect is seen to suggest stress induced ischemia. No fixed defect is seen to suggest hibernating myocardium or scarred myocardium. The end diastolic volume is 212 ml, the end systolic volume is 113 ml, and the ejection fraction is 47 %. IMPRESSION: No stress induced ischemia. 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 Patient presented with chest pain. It was associated with some shortness of breath. He has noted chronic lower extremity edema. Initial cardiac enzymes unremarkable. D-dimer was elevated. V/Q scan showed low probability for PE. Patient admitted for further evaluation. Hospital Course: Patient presented with chest pain and shortness of breath. Initial cardiac enzymes unremarkable. Patient had elevated D-dimer. Subsequent V/Q scan unremarkable for pulmonary embolism. Patient seen and evaluated by Cardiology. Echocardiogram showed moderate to severe aortic regurgitation and moderate aortic stenosis. Cardiology recommended cardiac stress test. Cardiac stress test performed. Cardiac stress test showed no stress-induced ischemia. Patient has remained stable. Cardiac enzymes unremarkable. At discharge patient without significant chest pain or shortness of breath. At discharge patient will continue with 1500 cc per day fluid restriction and low-salt diet. Recommend follow up with cardiology in 1-2 weeks to follow up aortic stenosis/ regurgitation. Patient will likely require repeat echocardiogram in the near future to monitor this closely. If this continues to worsen patient may require surgery. Patient with hypertension. Patient came in with elevated blood pressure. New medication required. Medications have been adjusted. At discharge patient will continue with lisinopril 10 mg daily and metoprolol 25 mg 1 pill twice daily. Recommend to maintain blood pressures less 150/80. Further adjustment can be done by his PCP. Patient with diabetes mellitus type 2, [id number]. Patient on metformin. Patient may continue with metformin 500 mg daily. Will recommend to monitor renal function closely while on metformin. If renal function continues to decline patient may need to be taken off metformin. Other medication may need to be considered at that time. Recommend to maintain blood sugars less 140 fasting and less than 200 after meals. Further adjustment can be done by his PCP. Patient with mixed hyperlipidemia. LDL 107. At discharge patient will continue with Lipitor 40 mg daily. Patient with microcytic anemia likely chronic. Patient with history of iron and B12 deficiency. At discharge will recommend to continue with iron and B12 supplementation. Patient with chronic renal disease stage II. This has remained stable. Recommend no further use of nonsteroidal anti-inflammatories. Future medications will need to be renally dose. As recommended above, recommend to recheck lab-BMP in 2-4 weeks to monitor his progress. Will recommend to establish care with nephrology as an outpatient to further monitor. Recommend to continue a 1500 cc per day fluid restriction and low-salt diet. Recommend to monitor weight daily. If his weight increases by more than 5 lb he is to contact his PCP for further recommendation. Patient with history of DVTs/pulmonary embolism. Patient currently on chronic anti coagulation therapy. At discharge patient may continue with Xarelto 20 mg daily. Recommend to follow up with PCP to determine when this can be discontinued. Patient may benefit with pulmonology evaluation to further address. Vital Signs/Physical Exam: Temp Pulse Resp BP Pulse Ox 98.1 F 62 16 128/71 98 04/08/19 07:55 04/08/19 07:55 04/08/19 07:55 04/08/19 07:55 04/08/19 07:55 General: Alert, In no apparent distress, Oriented x3 HEENT: Atraumatic Neck: Supple Respiratory: Clear to auscultation bilaterally, Normal air movement Cardiovascular: Normal pulses, Regular rate/rhythm, Systolic murmur Gastrointestinal: Normal bowel sounds, Soft and benign, Non-distended, No masses , No rebound, No guarding Musculoskeletal: No tenderness, No warmth Integumentary: No tenderness/swelling, No erythema, No warmth, No cyanosis Neurological: Normal speech, Normal strength at 5/5 x4 extr, Normal tone, Normal affect Laboratory Data at Discharge: WBC 5.7 K/uL (4.3-10.9) D 04/07/19 03:12 Hgb 10.6 g/dL (13.6-17.9) L 04/07/19 03:12 Hct 33.6 % (39.6-49.0) L 04/07/19 03:12 Plt Count 164 K/uL (152-406) 04/07/19 03:12 PT 13.9 SECONDS (9.5-12.5) H 04/06/19 08:45 INR 1.19 04/06/19 08:45 Sodium 143 mmol/L (136-145) 04/07/19 03:12 Potassium 4.2 mmol/L (3.5-5.1) 04/07/19 03:12 BUN 25 mg/dL (7-18) H 04/07/19 03:12 Creatinine 1.34 mg/dL (0.55-1.3) H 04/07/19 03:12 Glucose 90 mg/dL (74-106) 04/07/19 03:12 Magnesium 2.2 mg/dL (1.8-2.4) 04/06/19 08:45 Total Bilirubin 1.1 mg/dL (0.2-1.0) H 04/06/19 08:45 AST 16 U/L (15-37) 04/06/19 08:45 ALT 17 U/L (12-78) 04/06/19 08:45 Alkaline Phosphatase 88 U/L (45-117) 04/06/19 08:45 Troponin I < 0.02 ng/mL (0.0-0.045) 04/07/19 03:12 Triglycerides 30 mg/dL (<150) 04/07/19 03:12 Cholesterol 188 mg/dL (<200) 04/07/19 03:12 HDL Cholesterol 75 mg/dL (40-60) H 04/07/19 03:12 Cholesterol/HDL Ratio 2.51 04/07/19 03:12 Home Medications: Metoprolol Tartrate 25 mg PO DAILY #30 tablet 04/26/17 Rivaroxaban [Xarelto] 20 mg PO DAILY #30 tablet 04/26/17 Metformin HCl [Glucophage*] 500 mg PO DAILY WITH BREAKFAST 04/06/19 Atorvastatin Calcium [Lipitor] 40 mg PO BEDTIME #30 tab 04/08/19 Cyanocobalamin (Vitamin B-12) [Vitamin B-12] 1,000 mcg PO DAILY #90 tablet 04/08 Metoprolol Tartrate [Lopressor*] 25 mg PO BID #60 tab 04/08/19 Multivitamin/Iron/Folic Acid [Multi-Day Plus Iron Tablet] 1 each PO DAILY #90 tablet 04/08/19 lisinopriL [Prinivil*] 10 mg PO DAILY #30 tab 04/08/19 New Medications: Atorvastatin Calcium [Lipitor] 40 mg PO BEDTIME #30 tab Cyanocobalamin (Vitamin B-12) [Vitamin B-12] 1,000 mcg PO DAILY #90 tablet lisinopriL [Prinivil*] 10 mg PO DAILY #30 tab Metoprolol Tartrate [Lopressor*] 25 mg PO BID #60 tab Multivitamin/Iron/Folic Acid [Multi-Day Plus Iron Tablet] 1 each PO DAILY #90 tablet Patient Discharge Instructions: 1. Recommend follow up with PCP in 1 week to follow up this hospitalization. 2. Patient presented with chest pain and shortness of breath. Initial cardiac enzymes unremarkable. Patient had elevated D-dimer. Subsequent V/Q scan unremarkable for pulmonary embolism. Patient seen and evaluated by Cardiology. Echocardiogram showed moderate to severe aortic regurgitation and moderate aortic stenosis. Cardiology recommended cardiac stress test. Cardiac stress test performed and showed no stress-induced ischemia. Cardiac enzymes unremarkable. At discharge patient without significant chest pain or shortness of breath. At discharge patient will continue with 1500 cc per day fluid restriction and low-salt diet. Recommend follow up with cardiology in 1-2 weeks to follow up aortic stenosis/ regurgitation. Patient will likely require repeat echocardiogram in the near future to monitor this closely. If this continues to worsen patient may require surgery. 3. Patient with hypertension. Patient came in with elevated blood pressure. New medication required. Medications have been adjusted. At discharge patient will continue with lisinopril 10 mg daily and metoprolol 25 mg 1 pill twice daily. Recommend to maintain blood pressures less 150/80. Further adjustment can be done by his PCP. 4. Patient with diabetes mellitus type 2, [id number]. Patient on metformin. Patient may continue with metformin 500 mg daily. Will recommend to monitor renal function closely while on metformin. If renal function continues to decline patient may need to be taken off metformin. Other medication may need to be considered at that time. Recommend to maintain blood sugars less 140 fasting and less than 200 after meals. Further adjustment can be done by his PCP. 5. Patient with mixed hyperlipidemia. LDL 107. At discharge patient will continue with Lipitor 40 mg daily. 6. Patient with microcytic anemia likely chronic. Patient with history of iron and B12 deficiency. At discharge will recommend to continue with iron and B12 supplementation. 7. Patient with chronic renal disease stage II. This has remained stable. Recommend no further use of nonsteroidal anti-inflammatories. Future medications will need to be renally dose. As recommended above, recommend to recheck lab-BMP in 2-4 weeks to monitor his progress. Will recommend to establish care with nephrology as an outpatient to further monitor. Recommend to continue a 1500 cc per day fluid restriction and low-salt diet. Recommend to monitor weight daily. If his weight increases by more than 5 lb he is to contact his PCP for further recommendation. 8. Patient with history of DVTs/pulmonary embolism. Patient currently on chronic anti coagulation therapy. At discharge patient may continue with Xarelto 20 mg daily. Recommend to follow up with PCP to determine when this can be discontinued. Patient may benefit with pulmonology evaluation to further address. Diet: AHA Activity: Ad fabiano Time spent managing pt's care (in minutes): 55
[2019-04-08 10:45] LABS: Ferritin 117.9 ng/mL (26-388)
--- NOTE | 2019-04-08 11:01 | RAD REPORT ---
EXAM DESCRIPTION: NM - Rest Stress Cardiac Imaging - 04/08/2019 10:51 am CLINICAL HISTORY: CP Chest pain. COMPARISON: Rest Stress Cardiac Imaging dated 03/12/2016 TECHNIQUE: The patient was administered approximately 10mCi of Tc 99m Sestamibi prior to resting SPE CT imaging of the heart. The patient was then administered approximately 30 mCi of Tc 99m Sestamibi f ollowing exercise or pharmacologic stress. Multiplanar SPECT images were reviewed. FINDINGS: No stress induced ischemic defect is seen to suggest stress induced ischemia. No fixed def ect is seen to suggest hibernating myocardium or scarred myocardium. The end diastolic volume is 212 ml, the end systolic volume is 113 ml, and the ejection fraction is 4 7 %. IMPRESSION: No stress induced ischemia.
[2019-04-08] MEDS: METOPROLOL TAR 25 MG TAB PO SCH (11:28)
[2019-04-08] MEDS: ASPIRIN EC 81 MG TAB PO SCH (11:28)
[2019-04-08 11:29] VITALS: BP 142/74
[2019-04-08] MEDS: lisinopriL 10 MG TAB PO SCH (11:29)
--- NOTE | 2019-04-08 11:38 | TREADPHA ---
DX: CHEST PAIN Date of Study: 04/08/2019 Ht: 6 1 Wt: 263 lb 0 oz Consulting Physician: ARYA MEDICATIONS: TYLENOL, ASPIRIN, LIPITOR, NOVOLIN-R, PRINIVIL, LOPRESSOR HISTORY: 73 YEAR OLD MALE WITH COMPLAINTS OF CHEST PAIN. HISTORY OF DIABETES MELLITUS, HYPERTENSION, HYPERLIPIDEMIA, DEEP VEIN THROMBOSIS, GOUT, LYMPHODEMA, PULMONARY EMBOLISM PHYSICIAL EXAMINATION: RESTING B.P.: 143/78 RESTING H.R.: 59 RESTING EKG: SINUS BRADYCARDIA. NON-SPECIFIC T WAVE ABNORMALITY. PROTOCOL: PHARMACOLOGIC EXERCISE TIME: 3:30 B.P. AT [place] STRESS: 133/77 IMPRESSION: LEXISCAN INJECTED, CARDIOLITE INJECTED PER PROTOCOL. SEE NUCLEAR MEDICINE REPORT. NO SUPRAVENTRICULAR TACHYCARDIA. NO VENTRICULAR TACHYCARDIA. NO PREMATURE VENTRICULAR COMPLEXES. DENIED CHEST PAIN. NON-DIAGONSTIC ELECTROCARDIOGRAM WITH LEXISCAN STRESS.
[2019-04-08 11:50] VITALS: TEMP 98.4
== END 2019-04-08 14:14 | disposition home or self-care (01) ==
LOC: ER 08:20 → ERHOLD 10:17 → 4TH 11:01
PROVIDERS: ADMIT Family Medicine; ATTEND Family Medicine
DX: R07.9 Chest pain, unspecified (principal); I35.2 Nonrheumatic aortic (valve) stenosis with insufficiency; I12.9 Hypertensive chronic kidney disease with stage 1 through stage 4 chronic kidney disease, or unspecified chronic kidney disease; E11.22 Type 2 diabetes mellitus with diabetic chronic kidney disease; E11.65 Type 2 diabetes mellitus with hyperglycemia; N18.2 Chronic kidney disease, stage 2 (mild); E78.2 Mixed hyperlipidemia; D50.9 Iron deficiency anemia, unspecified; E11.40 Type 2 diabetes mellitus with diabetic neuropathy, unspecified; M10.9 Gout, unspecified; E66.9 Obesity, unspecified; Z68.34 Body mass index [BMI] 34.0-34.9, adult; Z86.718 Personal history of other venous thrombosis and embolism; Z86.711 Personal history of pulmonary embolism; Z79.01 Long term (current) use of anticoagulants
CPT/HCPCS: 93005; 93017; 93306; 87088; 85025 ×2; 87086; 80048 ×2; 36415 ×2; 83735; 85610; 80061; 82947 ×9; 85379; 80076; 84484 ×3; 82728; 82607; 83540; 83880; 84466; 71045; 94760 ×5; 78452; 78582; 99285; J2785; A9558; A9500; A9540; G0378 ×4; 81003; 81015

== ENCOUNTER 2019-10-17 11:31 | Emergency (ER) | payer OTHER ==
--- NOTE | 2019-10-17 12:43 | ER ---
Nurse's Notes [facility] Name: Tal Cornejo Age: 74 yrs Sex: Male : 1945 Arrival Date: 10/17/2019 Time: 11:34 Bed 17 Private MD: Diagnosis: Gout Presentation: 10/16 11:47 Chief complaint: Patient states: Gout on R big toe flare up since yesterday, this ca1 morning, I can hardly walk. Coronavirus screen: Proceed with normal triage. Patient denies a cough. Patient denies shortness of breath or difficulty breathing. Patient denies measured and/or subjective temperature greater than 100.4F prior to today's visit. Patient denies travel on a cruise ship or to a country the [facility] currently lists as an affected area. Patient denies contact with known and/or suspected case of COVID-19. Ebola Screen: Patient negative for fever greater than or equal to 101.5 degrees Fahrenheit, and additional compatible Ebola Virus Disease symptoms Patient denies exposure to infectious person. Patient denies travel to an Ebola-affected area in the 21 days before illness onset. No symptoms or risks identified at this time. Initial Sepsis Screen: Does the patient meet any 2 criteria? No. Patient's initial sepsis screen is negative. Does the patient have a suspected source of infection? No. Patient's initial sepsis screen is negative. Risk Assessment: Do you want to hurt yourself or someone else? Patient reports no desire to harm self or others. Onset of symptoms was October 17, 2019. 11:47 Method Of Arrival: Wheelchair ca1 11:47 Acuity: MARTITA 4 ca1 Triage Assessment: 12:18 General: Appears in no apparent distress. uncomfortable, Behavior is cooperative, bp appropriate for age, anxious. Pain: Complains of pain in right foot. EENT: No deficits noted. Neuro: No deficits noted. Cardiovascular: No deficits noted. Respiratory: No deficits noted. GI: No signs and/or symptoms were reported involving the gastrointestinal system. : No signs and/or symptoms were reported regarding the genitourinary system. Derm: No deficits noted. Musculoskeletal: Reports pain in right foot. Historical: - Allergies: 11:50 No Known Allergies; ca1 - Home Meds: 11:50 Metformin Oral [Active]; Xarelto Oral [Active]; losartan oral [Active]; Furosemide Oral ca1 [Active]; atorvastatin Oral [Active]; - PMHx: 11:50 Diabetes - NIDDM; DVT; Gout; Hyperlipidemia; Hypertension; LYMPHODEMA; PE; ca1 - PSHx: 11:50 femur surgery; ca1 - Immunization history:: Adult Immunizations up to date. - Social history:: Smoking status: Patient denies any tobacco usage or history of. Screenin:19 Abuse screen: Denies threats or abuse. Denies injuries from another. Nutritional bp screening: No deficits noted. Tuberculosis screening: No symptoms or risk factors identified. Fall Risk None identified. Assessment: 12:19 General: SEE TRIAGE NOTE. bp 13:24 Reassessment: PT D/C HOME AMBULATORY. DX WITH GOUT. bp Vital Signs: 11:47 BP 135 / 76; Pulse 62; Resp 16 S; Temp 98.7(TE); Pulse Ox 99% on R/A; Weight 117.93 kg ca1 (R); Height 6 ft. 1 in. (185.42 cm) (R); 13:24 BP 154 / 92; Pulse 64; Resp 17; Pulse Ox 99% ; bp 11:47 Body Mass Index 34.30 (117.93 kg, 185.42 cm) ca1 ED Course: 11:34 Patient arrived in ED. ag5 11:48 Triage completed. ca1 11:50 Arm band placed on right wrist. ca1 12:18 Everett Ga, RN is Primary Nurse. bp 12:19 Patient has correct armband on for positive identification. Bed in low position. Call bp light in reach. Side rails up X2. 12:33 Erick Stacy NP is PHCP. pm1 12:33 Timothy Brewer MD is Attending Physician. pm1 13:25 No provider procedures requiring assistance completed. Patient did not have IV access bp during this emergency room visit. Administered Medications: 13:00 Drug: SOLU-Medrol 125 mg Route: IM; Site: right gluteus; bp 13:26 Follow up: Response: Pain is decreased bp 13:00 Drug: [place] 5 mg-325 mg 1 tabs Route: PO; bp 13:26 Follow up: Response: Pain is decreased bp Outcome: 12:42 Discharge ordered by . pm1 13:25 Discharged to home ambulatory. bp 13:25 Condition: stable 13:25 Discharge instructions given to patient, Instructed on discharge instructions, follow up and referral plans. medication usage, Demonstrated understanding of instructions, follow-up care, medications, Prescriptions given X 2. 13:26 Patient left the ED. bp Signatures: Erick Stacy NP [facility] RADAR OPERATOR/NAVIGATOR pm1 Everett Ga, RN RN bp Celia Diaz RN RN ca1 Radha Horne ag5
--- NOTE | 2019-10-17 12:43 | EDPHYS ---
Physician Documentation [facility] Name: Tal Cornejo Age: 74 yrs Sex: Male : 1945 Arrival Date: 10/17/2019 Time: 11:34 Bed 17 Private MD: ED Physician Timothy Brewer HPI: 10/16 12:41 This 74 yrs old Black Male presents to ER via Wheelchair with complaints of Gout. pm1 12:41 The patient presents with pain, that is acute. The complaints affect the right first pm1 toe. Context: The problem was sustained at home, the patient can partially bear weight, the patient is able to ambulate. Onset: The symptoms/episode began/occurred yesterday. Modifying factors: The symptoms are alleviated by elevation of extremity, the symptoms are aggravated by weight bearing, movement. Associated signs and symptoms: The patient has no apparent associated signs or symptoms, Pertinent negatives: calf tenderness, fever, tingling, weakness. Severity of symptoms: in the emergency department the symptoms are actually worse. The patient has experienced similar episodes in the past, several times, and the symptoms today are exactly the same, to previous gout flare up. Possibly from eating pork chops. Not currently taking any medications for gout. Historical: - Allergies: 11:50 No Known Allergies; ca1 - Home Meds: 11:50 Metformin Oral [Active]; Xarelto Oral [Active]; losartan oral [Active]; Furosemide Oral ca1 [Active]; atorvastatin Oral [Active]; - PMHx: 11:50 Diabetes - NIDDM; DVT; Gout; Hyperlipidemia; Hypertension; LYMPHODEMA; PE; ca1 - PSHx: 11:50 femur surgery; ca1 - Immunization history:: Adult Immunizations up to date. - Social history:: Smoking status: Patient denies any tobacco usage or history of. ROS: 12:41 MS/extremity: Positive for pain, of the right first toe. pm1 12:41 Constitutional: Negative for fever, chills, and weight loss, Cardiovascular: Negative for chest pain, palpitations, and edema, Respiratory: Negative for shortness of breath, cough, wheezing, and pleuritic chest pain, Abdomen/GI: Negative for abdominal pain, nausea, vomiting, diarrhea, and constipation, Back: Negative for injury and pain, Skin: Negative for injury, rash, and discoloration, Neuro: Negative for headache, weakness, numbness, tingling, and seizure. Exam: 12:41 Constitutional: This is a well developed, well nourished patient who is awake, alert, pm1 and in no acute distress. Head/Face: Normocephalic, atraumatic. 12:41 Cardiovascular: Exam negative for Rate: normal, Rhythm: regular, Pulses: no pulse deficits are appreciated. 12:41 Respiratory: Exam negative for acute changes, respiratory distress, shortness of breath. 12:41 Musculoskeletal/extremity: Extremities: grossly normal except: noted in the MTP right first toe: pain, tenderness, There is no evidence of swelling. Vital Signs: 11:47 BP 135 / 76; Pulse 62; Resp 16 S; Temp 98.7(TE); Pulse Ox 99% on R/A; Weight 117.93 kg ca1 (R); Height 6 ft. 1 in. (185.42 cm) (R); 13:24 BP 154 / 92; Pulse 64; Resp 17; Pulse Ox 99% ; bp 11:47 Body Mass Index 34.30 (117.93 kg, 185.42 cm) ca1 MDM: 12:33 Patient medically screened. pm1 12:41 Data reviewed: vital signs. Data interpreted: Pulse oximetry: on room air is 99 %. pm1 Interpretation: normal. Counseling: I had a detailed discussion with the patient and/or guardian regarding: the historical points, exam findings, and any diagnostic results supporting the discharge/admit diagnosis, the need for outpatient follow up, to return to the emergency department if symptoms worsen or persist or if there are any questions or concerns that arise at home. Administered Medications: 13:00 Drug: SOLU-Medrol 125 mg Route: IM; Site: right gluteus; bp 13:26 Follow up: Response: Pain is decreased bp 13:00 Drug: [place] 5 mg-325 mg 1 tabs Route: PO; bp 13:26 Follow up: Response: Pain is decreased bp Disposition: 15:03 Co-signature as Attending Physician, Timothy Brewer MD. rn Disposition: 10/17/19 12:42 Discharged to Home. Impression: Gout. - Condition is Stable. - Discharge Instructions: Gout. - Prescriptions for Tylenol- Codeine #3 300-30 mg Oral Tablet - take 2 tablets by ORAL route every 6 hours As needed; 20 tablet. Medrol ([place]) 4 mg Oral Tablets, Dose Pack - take 1 tablet by ORAL route as directed - follow package instructions; 1 packet. - Medication Reconciliation Form, Thank You Letter, Antibiotic Education, Prescription Opioid Use form. - Follow up: Emergency Department; When: As needed; Reason: Worsening of condition. Follow up: Private Physician; When: 2 - 3 days; Reason: Recheck today's complaints, Continuance of care, Re-evaluation by your physician. - Problem is new. - Symptoms have improved. Signatures: Timothy rBewer MD MD rn Marinas, Patrick, NP [employer]OD [employer]ER pm1 Everett Ga RN RN bp Celia Diaz RN RN ca1 Corrections: (The following items were deleted from the chart) 13:26 12:42 10/17/2019 12:42 Discharged to Home. Impression: Gout. Condition is Stable. Forms bp are Medication Reconciliation Form, Thank You Letter, Antibiotic Education, Prescription Opioid Use. Follow up: Emergency Department; When: As needed; Reason: Worsening of condition. Follow up: Private Physician; When: 2 - 3 days; Reason: Recheck today's complaints, Continuance of care, Re-evaluation by your physician. Problem is new. Symptoms have improved. pm1
[2019-10-17] MEDS ORDERED: METHYLPREDNISOLONE 125 MG INJ ONE (13:15)
[2019-10-17] MEDS ORDERED: HYDROCODONE/APAP 5/325 MG TAB ONE (13:16)
[2019-10-17 13:32] VITALS: TEMP 98.7; O2SAT 99
[2019-10-17 13:33] VITALS: BP 154/92
== END 2019-10-17 13:26 | disposition home or self-care (01) ==
LOC: ER 11:31
DX: M10.9 Gout, unspecified (principal); I10 Essential (primary) hypertension; E11.9 Type 2 diabetes mellitus without complications; E78.5 Hyperlipidemia, unspecified; Z79.01 Long term (current) use of anticoagulants; Z86.718 Personal history of other venous thrombosis and embolism
CPT/HCPCS: 96372; 99283; J2930

== ENCOUNTER 2020-02-26 10:05 | Inpatient (IN) | payer OTHER ==
--- OUTSIDE RECORDS SUMMARY | 2020-02-26 10:28 | XMS REPORT | Continuity of Care Document ---
:1945 Author Organization Interventional Imaging Care Team Providers Name Role Phone Interventional Imaging Unavailable Un available Problems Problem Status Onset Classification Date Comments Sourc e Date Reported BREATHING PROBLEM Active 11/28/19 [facility] [place] SUPRAVENTRICULAR Active 11/28/19 T[place]ARD[place], ACUTE [facility] [place] BREANNA Discharge 03/15/20 03/18/2015 [facility] Diagnosis: Acute 15 Med ical DVT (deep venous [place] ter thrombosis) DVT/LEGS SWOLLEN Active 03/11/[address] LEG PAIN Active 12/24/[address] Diabetes mellitus Resolved Problem 12/25/2012 [facility] Gout Resolved Problem 12/25/2012 [facility] Hypertension Resolved Problem 12/25/2012 [facility] Neuropathy Resolved Problem 12/25/2012 [facility] Supraventricular 12/10/2019 tachy[place] Diabetes mellitus Resolved Problem 12/10/2019 [facility] (disorder) [facility] Gout (disorder) Resolved Problem 12/10/2019 [facility] Hypertensive Resolved Problem 12/10/2019 [place] as disorder, systemic edical arterial (disorder) Center,[facility] Neuropathy Resolved Problem 12/10/2019 [facility] (disorder) [facility] Type II diabetes Active Problem 12/10/2019 mellitus [facility] uncontrolled (finding) SUPRAVENTRICULAR Active [place] ACUTE KIDNEY Active FAILURE, [facility] UNSPECIFIED TYPE 2 DIABETES Active [place]LL[place] HYPERGLYCE Medications Medication Details Route Status Patient Ordering Order Source Instructions Provider Date metoprolol 25 mg = 1 cap, Active succinate 25 mg PO, Daily, # 30 2019 [facility] oral capsule, cap, 0 Refill(s) extended release metoprolol 25 mg = 1 tab, Inactive tartrate 25 mg PO, Q12H, # 60 2019 [place] [facility] oral tablet tab, 0 Refill(s) rivaroxaban 20 20 mg = 1 tab, Active mg oral tablet PO, QPM, For Deep 2019 [facility] Venous Thrombosis / Pulmonary Embolism, # 30 tab, 0 Refill(s) Glipizide 5 MG 5 mg = 1 tab, PO, Active Oral Tablet BID-Before [facility]als, [address] [facility] # [facility] tab, 0 Refill(s) Saline Flush Notes: Same as: No Longer H 0.9% BD Posiflush Active 2019 [facility] Sterile Saline Flush Notes: Same as: No Longer H 0.9% BD Posiflush Active 2019 [facility] Sterile Xarelto Notes: (Same as: No Longer Xarelto) 2019 [facility] Administer with food metoprolol Notes: (Same as: No Longer tartrate Lopressor) 2019 [facility] morphine Notes: (Same No Longer Sulfate as:MORPhine Active 2019 [facility] Sulfate) carvedilol Notes: Give with No Longer food. (Same As: [facility] Adenosine Notes: Rapid IV Inactive PUSH over 1-2 2019 [facility] sec; Flush line immediately after drug is given. Lac-Hydrin Notes: (Same as: No Longer Ainhactin) Active 2019 [facility] Xarelto = 15 mL/min, Inactive Start date: 201911/29/19 17:00:00 CDT, Duration: 30 day, Stop date: 12/28/19 17:00:00 CDT, For Deep Venous Thrombosis / Pulmonary Embolism Lactic acid 100 1 appl, Route: Inactive MG/ML Topical TOP, BID, Start 2019 [facility] Lotion date: 11/29/19 9:00:00 CDT, Duration: 30 day, Stop date: 12/28/19 17:00:00 CDT heparin Notes: porcine Inactive heparin 2019 [facility] Glipizide 5 MG 5 mg = 1 tab, PO, No Longer 11/28 Oral Tablet BID-Before Meals, Active [address] [facility] # 30 tab, 1 Refill(s) NIFEdipine 30 30 mg = 1 tab, No Longer 11/28/ H mg oral tablet, PO, Daily, # 30 2019 [facility] extended tab, 0 Refill(s) release Dextrose 50% 12.5 gm, 25 mL, No Longer H Syringe (D50W) Route: IVP, Drug 2019 [facility] Form: INJ, Dosing Weight 113.636, kg, PRN, PRN Blood Glucose Results, Start date: 11/29/19 2:13:00 CDT, Duration: 30 day, Stop date: 12/29/19 2:12:00 CDT, 0 Glucagon 1 mg, Route: IM, No Longer Drug form: 2019 [facility] PDR/INJ, PRN, Dosing Weight 113.636, kg, PRN Blood Glucose Results, Start date: 11/29/19 2:13:00 CDT, Duration: 30 day, Stop date: 12/29/19 2:12:00 CDT, 0 Insulin Lispro Notes: (Same as: No Longer Humalog) Roll in 2019 [facility] palms of hands gently; Do not shake vigorously. WASTE: F/P - Black; E - Municipal Trash Bin Stable for 28 days at room temperature. Expires in days from Dat e Docusate Notes: (Same as: No Longer Colace) (Do Not 2019 [facility] t Crush) Ondansetron Notes: (Same as: No Longer Zofran) 2019 [facility] MEDICATION WASTE Product Size: 4 mg Product Wasted: ___ mg Trazodone Notes: (Same As: No Longer Desyrel) 2019 [facility] Acetaminophen Notes: Do not No Longer exceed 4 gm/day. [address] [facility] [address] (Same as: Tylenol) Lactated 1,000 mL, Rate: No Longer Ringers IV 75 ml/hr, Infuse 2019 [place] 1,000 mL over: 13.3 hr, Route: IV, Dosing Weight 113.636 kg, Total Volume: 1,000, Priority: Routine, Start date: 11/29/19 2:11:00 CDT, Duration: 30 day, Stop date: 12/29/19 2:10:00 CDT, 2.44, m2, 0 Maalox Advanced Notes: (aluminum No Longer 11/28 Regular hydroxide-magnesi Active 2019 [facility] est Strength SUSP um hyd-simethicone [id number]/5ml 30 ml ud PABLO) Morphine Notes: (Same No Longer as:MORPhine 2019 [facility] Sulfate) Albuterol 0.833 Notes: (Same as: No Longer 11/28 MG/ML / Duoneb) 2019 [facility] Ipratropium [place] 0.167 MG/ML Inhalant Solution [DuoNeb] Hydralazine Notes: (Same as: No Longer Apresoline) Push Active [address] [facility] [address] over 5 minutes 1 ML Enoxaparin 130 mg, SUB-Q, Active H [place] sodium 150 Q12H, # 10 ea, 0 2014 Medi johana MG/ML Prefilled Refill(s) Center Syringe [Lovenox] warfarin 10 mg 10 mg = 1 tab, Active [place] oral tablet PO, Daily, # 14 2014 [facility] tab, 0 Refill(s) Center 1 ML Enoxaparin 130 mg, SUB-Q, Inactive [place] sodium 150 Q12H, # 10 ea, 0 2015 [facility] MG/ML Prefilled Refill(s) Center Syringe [Lovenox] Lovenox Notes: Nurse to Inactive Yue joseph ensure 2015 Medical documentation of Center patient education per anticoagulation policy. (Same as: Lovenox) warfarin 10 mg 10 mg = 1 tab, Inactive H [place] oral tablet PO, Daily, # 14 2014 Medi johana tab, 0 Refill(s) Center 1 ML Enoxaparin 150 mg, SUB-Q, Inactive [place] sodium 150 Q12H, # 10 ea, 0 2015 [facility] MG/ML Prefilled Refill(s) Center Syringe [Lovenox] Lovenox 150 mg, Route: Inactive [place] SUB-Q, ONCE, 2014 Medical Dosing Weight Center 127.273, kg, Start date: 03/15/15 7:15:00, Stop date: 03/15/15 7:15:00 PlasmaLyte A Notes: (Same as: Inactive H [place] PH-7.4 1,000 mL Isolyte S PH 7.4) [address] [place] [address] colchicine 0.6 0.6 mg, 1 tab, PO Active [facility] mg oral tablet PO, Q1H, PRN, 10 2012 [place] tab, Other-See Comments, Substitution Allowed tramadol 50 mg 50 mg, 1 tab, PO, PO Active [facility] 12/23 oral tablet Q6H, PRN, 40 tab, 2012 [facility] Pain, Substitution Allowed, TAB allopurinol 300 300 mg, 1 tab, PO Active [facility] mg oral tablet PO, Daily, 30 2012 [place] [facility] tab, Substitution Allowed, TAB allopurinol 300 mg, 1 tab, PO No Longer [facility] 12/23/ M H Route: PO, Drug Active 2012 [facility] t form: TAB, ONCE, Dosing Weight 135, kg, Start date: 12/23/12 4:08:00, Stop date: 12/23/12 4:08:00 [place] 7.5/325 1 tab, Route: PO, PO No Longer [facility] oral tablet Drug Form: TAB, Active 2012 [facility] Dosing Weight 135, kg, ONCE, Start date: 12/23/12 3:48:00, Stop date: 12/23/12 3:48:00 ketorolac 30 mg, 1 mL, IM No Longer [facility] Route: IM, Drug Active 2012[facility] t form: INJ, ONCE, Dosing Weight 135, kg, Priority: STAT, Start date: 12/23/12 3:45:00, Stop date: 12/23/12 3:45:00 allopurinol Route: PO, ONCE, PO No Longer [facility] Dosing Weight Active 2012 [facility] 135, kg, Start date: 12/23/12 3:45:00, Stop date: 12/23/12 3:45:00 Allergies, Adverse Reactions, Alerts Substance Category Reaction Severity Reaction Status Date Comments S ource type Reported No Known Assertion Drug Medication allergy [facility] Allergies Immunizations No Data Provided for This Section Results Order Name Results Value Reference Date Interpretation Comments Orly rce Range IMMUNOLOGY Coronavirus Not Detected Not 12/04 (COVID-19) *NA* Detected /2019 [facility] DYLAN (12/05/19 1:37 PM) IMMUNOLOGY Coronavirus Not Detected Not 12/03 (COVID-19) *NA* Detected /2019 [facility] DYLAN (12/04/19 12:53 PM) CHEM PANEL Glucose Lvl 85 70 - 99 08 MH [facility] CHEM PANEL BUN 18 7 - 22 08 [facility] CHEM PANEL Creatinine 1.50 0.50 - 08/ MH Lvl 1.40 /2019 [facility] CHEM PANEL Sodium Lvl 146 135 - 145 08 [facility] CHEM PANEL Potassium 4.3 3.5 - 5.1 08/ MH Lvl /2019 [facility] CHEM PANEL Chloride Lvl 112 95 - 109 08 [facility] CHEM PANEL CO2 26 24 - 32 08 MH [facility] CHEM PANEL Calcium Lvl 8.5 8.5 - 10.5 08 [facility] CHEM PANEL AGAP 12.3 10.0 - 08 MH 20.0 [facility] CHEM PANEL eGFR 52 12/01 Result Comment: The [facility] eGFR is calculated using the CKD-EPI formula. In most young, healthy individuals the eGFR will be >90 mL/min/1.73m2 . The eGFR declines with age. An eGFR of 60-89 may be normal in some populations, particularly the elderly, for whom the CKD-EPI formula has not been extensively validated. Use of the eGFR is not recommended in the following populations:< br/>
Evie viduals with unstable creatinine concentration s, including patients and those with serious co-morbid conditions.<b r/>
Patie nts with extremes in muscle mass or diet.

The data above are obtained from the National Kidney Disease Education Program (NKDEP) which additionally recommends that when the eGFR is used in patients with extremes of body mass index for purposes of drug dosing, the eGFR should be multiplied by the estimated BMI. HEMATOLOGY Segs 47.5 45.0 - 08 MH 75.0 /2020 [facility] HEMATOLOGY Lymphocytes 35.6 20.0 - 08/ MH 40.0 /2020 [facility] HEMATOLOGY Monocytes 13.0 2.0 - 12.0 08 MH [facility] HEMATOLOGY Eosinophils 2.9 0.0 - 4.0 08 MH [facility] HEMATOLOGY Basophils 1.0 0.0 - 1.0 08 MH [facility] HEMATOLOGY Neutrophils 3.1 1.5 - 8.1 08/ MH # /2019 [facility] HEMATOLOGY Lymphocytes 2.4 1.0 - 5.5 08/12 MH # /2020 [facility] HEMATOLOGY Monocytes # 0.9 0.0 - 0.8 08/ MH /2019 [facility] HEMATOLOGY Eosinophils 0.2 0.0 - 0.5 08/12 MH # /2019 [facility] HEMATOLOGY Basophils # 0.1 0.0 - 0.2 08 /2019 [facility] HEMATOLOGY Microcyte 3+ None Seen 12/01 MH *NA* /2019 [facility] (12/02/19 4:50 AM) HEMATOLOGY Hypochrom 1+ None Seen 12/01 (12/02/19 4:50 AM) /2019 [facility] est HEMATOLOGY Target Cell Moderate None Seen 12/01 MH *ABN* /2019 [facility] (12/02/19 4:50 AM) HEMATOLOGY Large Plt Moderate None Seen 12/01 MH *ABN* /2019 [facility] (12/02/19 4:50 AM) HEMATOLOGY WBC 6.6 3.7 - 10.4 12/01 /2019 [facility] HEMATOLOGY RBC 5.85 4.70 - 08 MH 6.10 [facility] HEMATOLOGY Hgb 11.4 14.0 - 08 MH 18.0 [facility] HEMATOLOGY Hct 36.3 42.0 - 0812 MH 54.0 [facility] HEMATOLOGY MCV 62.0 80.0 - 08 MH 94.0 /2019 [facility] HEMATOLOGY MCH 19.5 27.0 - 08/ MH 31.0 [facility] HEMATOLOGY MCHC 31.4 32.0 - 08/12 MH 36.0 /2019 [facility] HEMATOLOGY RDW 16.3 11.5 - 08/12 MH 14.5 [facility] HEMATOLOGY Platelet 171 133 - 450 12/01 /2019 [facility] HEMATOLOGY MPV 9.0 7.4 - 10.4 08/12 MH /2019 [facility] CHEM PANEL Glucose Lvl 90 70 - 99 08/10 [facility] CHEM PANEL BUN 25 7 - 22 08/10 [facility] CHEM PANEL Creatinine 1.80 0.50 - 08/10 Lvl 1.40 /2019 [facility] CHEM PANEL Sodium Lvl 145 135 - 145 08/10 [facility] CHEM PANEL Potassium 4.5 3.5 - 5.1 08/10 MH Lvl /2019 [facility] CHEM PANEL Chloride Lvl 113 95 - 109 08/10 [facility] CHEM PANEL CO2 24 24 - 32 08/10 [facility] CHEM PANEL Calcium Lvl 8.7 8.5 - 10.5 11/29 [facility] CHEM PANEL AGAP 12.5 10.0 - 11/29 20.0 /2019 [facility] CHEM PANEL eGFR 42 11/29 Result Comment: The [facility] eGFR is calculated using the CKD-EPI formula. In most young, healthy individuals the eGFR will be >90 mL/min/1.73m2 . The eGFR declines with age. An eGFR of 60-89 may be normal in some populations, particularly the elderly, for whom the CKD-EPI formula has not been extensively validated. Use of the eGFR is not recommended in the following populations:< br/>
Evie viduals with unstable creatinine concentration s, including patients and those with serious co-morbid conditions.<b r/>
Patie nts with extremes in muscle mass or diet.

The data above are obtained from the National Kidney Disease Education Program (NKDEP) which additionally recommends that when the eGFR is used in patients with extremes of body mass index for purposes of drug dosing, the eGFR should be multiplied by the estimated BMI. IMMUNOLOGY Coronavirus Detected 5 Not 11/28 Result (COVID-19) *ABN* Detected Comment: [facility] (11/29/19 3:16 PM) "Significant Findings called to Soy MEDINA at 11/30/2019 07:29_ by WF_. Read Back OK." ANEMIA Iron 73 50 - 180 11/28 Result STUDY Comment: Lab [facility] test performed by:
[facility] [place]
[address] [place] [address]
[place] [address]
STIVEN ZAMORA MD ANEMIA TIBC 216 250 - 425 11/28 STUDY [facility] ANEMIA % Satur Fe 34 20 - 48 11/28 STUDY [facility] URINE AND UA Turbidity Slight Clear 11/28 STOOL *ABN* /2019 [facility] (11/29/19 9:58 AM) URINE AND UA Spec Grav 1.015 <=1.030 11/28 STOOL /2019 [facility] URINE AND UA pH 5.0 5.0 - 8.0 11/28 STOOL /2019 [facility] URINE AND UA Protein Negative Negative 11/28 STOOL mg/dL mg/dL [facility] URINE AND UA Glucose Negative Negative 11/28 STOOL mg/dL mg/dL [facility] URINE AND UA Ketones Negative Negative 11/28 STOOL mg/dL mg/dL [facility] URINE AND UA Bili Negative Negative 11/28 STOOL *NA* /2019 [facility] (11/29/19 9:58 AM) URINE AND UA Blood Small Negative 11/28 STOOL *ABN* [facility] (11/29/19 9:58 AM) URINE AND UA Nitrite Negative Negative 11/28 [facility]OOL (11/29/19 9:58 AM) [facility] st URINE AND UA Leuk Est Negative Negative 11/28 STOOL (11/29/19 9:58 AM) [facility] st URINE AND UA Sq Epi Occasional Few /LPF 11/28 STOOL /LPF [facility] URINE AND UA RBC 2 0 - 2 11/28 STOOL [facility] URINE AND UA Mucus Few /LPF None Seen 11/28 STOOL /LPF [facility] URINE AND UA Hyal Cast 9 0 - 2 11/28 STOOL [facility] URINE AND UA Color Yellow 11/28 STOOL [facility] URINE AND UA <=1.0 0.1 - 1.0 11/28 STOOL Urobilinogen [facility] CARDIAC Troponin-I 0.04 0.00 - 0809 ENZYMES 0.40 [facility] CARDIAC Troponin-I 0.04 0.00 - 08 ENZYMES 0.40 [facility] CHEM PANEL Glucose Lvl 99 70 - 99 11/28 [facility] CHEM PANEL BUN 29 7 - 22 11/28 [facility] CHEM PANEL Creatinine 2.90 0.50 - 08 Lvl 1.40 [facility] CHEM PANEL Sodium Lvl 141 135 - 145 11/28 MH [facility] CHEM PANEL Potassium 4.5 3.5 - 5.1 / MH Lvl [facility] CHEM PANEL Chloride Lvl 107 95 - 109 11/28 MH [facility] CHEM PANEL CO2 26 24 - 32 11/28 MH [facility] CHEM PANEL Calcium Lvl 9.4 8.5 - 10.5 11/28 [facility] CHEM PANEL Total 8.0 6.4 - 8.4 11/28 Protein [facility] CHEM PANEL Albumin Lvl 3.5 3.5 - 5.0 08 [facility] CHEM PANEL ALT 34 0 - 65 08/09 MH /2020 [facility] CHEM PANEL AST 20 0 - 37 08/ MH /2019 [facility] CHEM PANEL Alk Phos 84 39 - 136 / [facility] CHEM PANEL Bili Total 0.7 0.2 - 1.3 / MH /2019 [facility] CHEM PANEL AGAP 12.5 10.0 - 08/ MH 20.0 /2019 [facility] CHEM PANEL B/C Ratio 10 6 - 25 08/ MH /2019 [facility] CHEM PANEL Globulin 4.5 2.7 - 4.2 / MH /2019 [facility] CHEM PANEL A/G Ratio 0.8 0.7 - 1.6 / /2019 [facility] CHEM PANEL eGFR 24 / Result Comment: The [facility] eGFR is calculated using the CKD-EPI formula. In most young, healthy individuals the eGFR will be >90 mL/min/1.73m2 . The eGFR declines with age. An eGFR of 60-89 may be normal in some populations, particularly the elderly, for whom the CKD-EPI formula has not been extensively validated. Use of the eGFR is not recommended in the following populations:< br/>
Evie viduals with unstable creatinine concentration s, including patients and those with serious co-morbid conditions.<b r/>
Patie nts with extremes in muscle mass or diet.

The data above are obtained from the National Kidney Disease Education Program (NKDEP) which additionally recommends that when the eGFR is used in patients with extremes of body mass index for purposes of drug dosing, the eGFR should be multiplied by the estimated BMI. CHEM PANEL Magnesium 2.1 1.8 - 2.4 /09 MH Lvl /2020 [facility] CHEM PANEL Phosphorus 4.3 2.5 - 4.5 / /2019 [facility] CHEM PANEL Procalcitoni 0.28 0.00 - 08/09 MH n Lvl 0.10 /2019 [facility] CHEM PANEL Lactic Acid 1.5 0.5 - 2.2 08/09 MH Lvl /2020 [facility] HEMATOLOGY Neutrophils 8.0 1.5 - 8.1 08/09 MH # /2020 [facility] HEMATOLOGY Lymphocytes 1.4 1.0 - 5.5 08/09 MH # /2020 [facility] HEMATOLOGY Monocytes # 0.8 0.0 - 0.8 08/09 MH /2020 [facility] HEMATOLOGY Eosinophils 0.3 0.0 - 0.5 08/09 MH # /2019 [facility] HEMATOLOGY Segs 76.0 45.0 - 11/28 75.0 [facility] HEMATOLOGY Bands 0.0 0.0 - 11.0 11/28 /2019 [facility] HEMATOLOGY Lymphocytes 12.0 20.0 - 11/28 40.0 [facility] HEMATOLOGY Monocytes 8.0 2.0 - 12.0 11/28 [facility] HEMATOLOGY Eosinophils 3.0 0.0 - 4.0 11/28 [facility] HEMATOLOGY Atypical 1.0 <=0.0 % 11/28 Lymphs /2019 [facility] HEMATOLOGY Plt Morph Normal Normal 11/28 (11/29/19 4:43 AM) /2019 [facility] HEMATOLOGY Microcyte 3+ None Seen 11/28 *ABN* [facility] (11/29/19 4:43 AM) HEMATOLOGY Hypochrom 1+ None Seen 11/28 (11/29/19 4:43 AM) [facility] HEMATOLOGY Polychrom Moderate None Seen 11/28 *ABN* [facility] (11/29/19 4:43 AM) HEMATOLOGY Target Cell Moderate None Seen 11/28 *ABN* /2019 [facility] (11/29/19 4:43 AM) HEMATOLOGY Elliptocyte Slight None Seen 11/28 *ABN* [facility] (11/29/19 4:43 AM) HEMATOLOGY WBC 10.5 3.7 - 10.4 11/28 [facility] HEMATOLOGY RBC 6.37 4.70 - 11/28 6.10 [facility] HEMATOLOGY Hgb 12.2 14.0 - 11/28 18.0 [facility] HEMATOLOGY Hct 39.4 42.0 - 11/28 54.0 [facility] HEMATOLOGY MCV 61.8 80.0 - 11/28 94.0 [facility] HEMATOLOGY MCH 19.2 27.0 - 11/28 31.0 [facility] HEMATOLOGY MCHC 31.0 32.0 - 11/28 36.0 [facility] HEMATOLOGY RDW 16.4 11.5 - 11/28 14.5 [facility] HEMATOLOGY Platelet 244 133 - 450 11/28 [facility] HEMATOLOGY MPV 9.9 7.4 - 10.4 11/28 [facility] IMMUNOLOGY Coronavirus Not Detected Not 11/28 (COVID-19) (11/29/19 12:59 AM) Detected [facility] DYLAN CARDIAC Total CK 130 12 - 191 08/ ENZYMES /2019 [facility] CARDIAC Troponin-I 0.04 0.00 - 08/09 ENZYMES 0.40 [facility] CARDIAC BNP 198 <=100 08/ ENZYMES pg/mL [facility] CHEM PANEL Glucose Lvl 97 70 - 99 08/ [facility] CHEM PANEL BUN 26 7 - 22 08/ [facility] CHEM PANEL Creatinine 3.40 0.50 - 08/09 MH Lvl 1.40 /2019 [facility] CHEM PANEL Sodium Lvl 145 135 - 145 / [facility] CHEM PANEL Potassium 4.0 3.5 - 5.1 08/ MH Lvl /2019 [facility] CHEM PANEL Chloride Lvl 111 95 - 109 / [facility] CHEM PANEL CO2 26 24 - 32 / MH [facility] CHEM PANEL Calcium Lvl 10.4 8.5 - 10.5 08/ [facility] CHEM PANEL AGAP 12.0 10.0 - 08/09 MH 20.0 /2019 [facility] CHEM PANEL eGFR 19 11/28 Result Comment: The [facility] eGFR is calculated using the CKD-EPI formula. In most young, healthy individuals the eGFR will be >90 mL/min/1.73m2 . The eGFR declines with age. An eGFR of 60-89 may be normal in some populations, particularly the elderly, for whom the CKD-EPI formula has not been extensively validated. Use of the eGFR is not recommended in the following populations:< br/>
Evie viduals with unstable creatinine concentration s, including patients and those with serious co-morbid conditions.<b r/>
Patie nts with extremes in muscle mass or diet.

The data above are obtained from the National Kidney Disease Education Program (NKDEP) which additionally recommends that when the eGFR is used in patients with extremes of body mass index for purposes of drug dosing, the eGFR should be multiplied by the estimated BMI. CHEM PANEL Total 8.5 6.4 - 8.4 08/09 MH Protein [facility] CHEM PANEL Albumin Lvl 3.6 3.5 - 5.0 08/ MH [facility] CHEM PANEL ALT 33 0 - 65 08/09 MH [facility] CHEM PANEL AST 24 0 - 37 08/09 MH [facility] CHEM PANEL Alk Phos 81 39 - 136 08/09 MH /2020 [facility] CHEM PANEL Bili Total 0.7 0.2 - 1.3 08/09 MH /2020 [facility] CHEM PANEL Bili Direct 0.2 0.0 - 0.3 08/09 MH /2020 [facility] CHEM PANEL Bili 0.5 0.0 - 1.0 08/09 MH Indirect /2020 [facility] CHEM PANEL Globulin 4.9 2.7 - 4.2 08/09 MH /2020 [facility] CHEM PANEL A/G Ratio 0.7 0.7 - 1.6 08/09 MH /2020 [facility] CHEM PANEL Magnesium 2.4 1.8 - 2.4 08/09 MH Lvl /2020 [facility] HEMATOLOGY WBC 10.5 3.7 - 10.4 08/09 MH /2020 [facility] HEMATOLOGY RBC 6.24 4.70 - 08/09 MH 6.10 /2020 [facility] HEMATOLOGY Hgb 12.1 14.0 - 08/09 MH 18.0 /2020 [facility] HEMATOLOGY Hct 39.8 42.0 - 08/09 MH 54.0 /2020 [facility] HEMATOLOGY MCV 63.8 80.0 - 08/09 MH 94.0 /2020 [facility] HEMATOLOGY MCH 19.3 27.0 - 08/09 MH 31.0 /2020 [facility] HEMATOLOGY MCHC 30.3 32.0 - 08/09 MH 36.0 /2020 [facility] HEMATOLOGY RDW 16.5 11.5 - 08/09 MH 14.5 /2020 [facility] HEMATOLOGY Platelet 253 133 - 450 08/09 MH /2020 [facility] HEMATOLOGY MPV 9.4 7.4 - 10.4 08/09 MH /2020 [facility] HEMATOLOGY PT 14.3 12.0 - 08/09 MH 14.7 /2020 [facility] HEMATOLOGY INR 1.11 0.85 - 08/09 MH 1.17 /2020 [facility] HEMATOLOGY PTT 28.6 22.9 - 08/09 MH 35.8 /2020 [facility] HEMATOLOGY Neutrophils 8.4 1.5 - 8.1 08/09 MH # /2020 [facility] HEMATOLOGY Lymphocytes 1.3 1.0 - 5.5 08/09 MH # /2020 [facility] HEMATOLOGY Monocytes # 0.7 0.0 - 0.8 08/09 MH /2020 [facility] HEMATOLOGY Basophils # 0.1 0.0 - 0.2 08/09 MH /2020 [facility] HEMATOLOGY Segs 77.0 45.0 - 08/09 MH 75.0 /2020 [facility] HEMATOLOGY Bands 3.0 0.0 - 11.0 11/28 [facility] HEMATOLOGY Lymphocytes 12.0 20.0 - 11/28 MH 40.0 [facility] HEMATOLOGY Monocytes 7.0 2.0 - 12.0 11/28 [facility] HEMATOLOGY Basophils 1.0 0.0 - 1.0 11/28 [facility] HEMATOLOGY Atypical 0.0 <=0.0 % 11/28 Lymphs [facility] HEMATOLOGY Anisocyte 1+ None Seen 11/28 *ABN* [facility] [facility] (11/28/19 9:39 PM) HEMATOLOGY Microcyte 2+ None Seen 11/28 *ABN* [facility] (11/28/19 9:39 PM) HEMATOLOGY Hypochrom 1+ None Seen 11/28 (11/28/19 9:39 PM) [facility] HEMATOLOGY Polychrom Moderate None Seen 11/28 *ABN* [facility] (11/28/19 9:39 PM) HEMATOLOGY Target Cell Moderate None Seen 11/28 *ABN* [facility] (11/28/19 9:39 PM) HEMATOLOGY Large Plt Moderate None Seen 11/28 *ABN* [facility] (11/28/19 9:39 PM) CHEM PANEL Calcium Lvl 8.5 8.5 - 10.5 03/[address] [facility] CHEM PANEL eGFR 56 03/15 Result Comment: [facility] eGFR is Center calculated using the CKD-EPI formula. In most young, healthy individuals the eGFR will be >90 mL/min/1.73m2 . The eGFR declines with age. An eGFR of 60-89 may be normal in some populations, particularly the elderly, for whom the CKD-EPI formula has not been extensively validated. Use of the eGFR is not recommended in the following populations:< br/>
Evie viduals with unstable creatinine concentration s, including patients and those with serious co-morbid conditions.<b r/>
Patie nts with extremes in muscle mass or diet.

The data above are obtained from the National Kidney Disease Education Program (NKDEP) which additionally recommends that when the eGFR is used in patients with extremes of body mass index for purposes of drug dosing, the eGFR should be multiplied by the estimated BMI. CHEM PANEL CO2 27 24 - 32 03/[address] [facility] CHEM PANEL AGAP 9.8 10.0 - 03/15 [place] 20.[address] [facility] CHEM PANEL Sodium Lvl 142 135 - 145 03/[address] [facility] CHEM PANEL Potassium 3.8 3.5 - 5.1 03/[address] [facility] CHEM PANEL Chloride Lvl 109 95 - 109 03/[address] [facility] CHEM PANEL Glucose Lvl 102 70 - 99 03/[address] [facility] CHEM PANEL BUN 18 7 - 22 03/[address] [facility] CHEM PANEL Creatinine 1.45 0.50 - 03/15 [facility] Lvl 1.[address] [facility] CHEM PANEL eGFR 52 03/15 Result Comment: [facility] eGFR is Center calculated using the CKD-EPI formula. In most young, healthy individuals the eGFR will be >90 mL/min/1.73m2 . The eGFR declines with age. An eGFR of 60-89 may be normal in some populations, particularly the elderly, for whom the CKD-EPI formula has not been extensively validated. Use of the eGFR is not recommended in the following populations:< br/>
Evie viduals with unstable creatinine concentration s, including patients and those with serious co-morbid conditions.<b r/>
Patie nts with extremes in muscle mass or diet.

The data above are obtained from the National Kidney Disease Education Program (NKDEP) which additionally recommends that when the eGFR is used in patients with extremes of body mass index for purposes of drug dosing, the eGFR should be multiplied by the estimated BMI. CHEM PANEL Sodium Lvl 139 135 - 145 03/[address] [facility] CHEM PANEL Chloride Lvl 104 95 - 109 03/[address] [facility] CHEM PANEL CO2 25 24 - 32 03/[address] [facility] CHEM PANEL Calcium Lvl 9.0 8.5 - 10.5 03/[address] [facility] CHEM PANEL Potassium 5.7 3.5 - 5.1 03/15 Result Comment: [facility] hemolyzed CHEM PANEL Glucose Lvl 103 70 - 99 03/[address] [facility] CHEM PANEL BUN 21 7 - 22 03/[address] [facility] CHEM PANEL Creatinine 1.55 0.50 - 03/15 [place] Lvl 1.40 /[address] [facility] CHEM PANEL AGAP 15.7 10.0 - 03/15 [place] 20.0 /[address] [facility] HEMATOLOGY Lymphocytes 29.7 20.0 - 03/15 [place] 40.0 /[address] [facility] HEMATOLOGY Monocytes 9.4 2.0 - 12.0 03/15 /[address] [facility] HEMATOLOGY Basophils 1.0 0.0 - 1.0 03/[address] [facility] HEMATOLOGY Eosinophils 4.6 0.0 - 4.0 03/[place] [facility] HEMATOLOGY Lymphocytes 2.1 1.0 - 5.5 03/[place] # /[address] [facility] HEMATOLOGY Segs-Bands # 4.0 1.5 - 8.1 03/15 [place] [address] [facility] HEMATOLOGY Basophils # 0.1 0.0 - 0.2 03/[place] [facility] HEMATOLOGY Eosinophils 0.3 0.0 - 0.5 03/[place] # /[address] [facility] HEMATOLOGY Segs 55.3 45.0 - 03/15 [place] [address] [facility] HEMATOLOGY Microcyte 3+ None Seen 03/15 [place] *NA* /2014 [facility] (03/15/15 3:17 AM) Cente r HEMATOLOGY Monocytes # 0.7 0.0 - 0.8 03/[address] [facility] HEMATOLOGY Target Cell Slight 03/[address] [facility] HEMATOLOGY Tear Cell Slight 03/[address] [facility] HEMATOLOGY Polychrom Moderate None Seen 03/15 *ABN* /2014 [facility] (03/15/15 3:17 AM) Cente r HEMATOLOGY Large Plt Slight 03/[address] [facility] HEMATOLOGY Hypochrom 1+ None Seen 03/15 [place] (03/15/15 3:17 AM) /2014 [facility] HEMATOLOGY Anisocyte 1+ None Seen 03/15 *ABN* /2014 [facility] (03/15/15 3:17 AM) Cente r HEMATOLOGY INR 1.23 0.85 - 03/15 [place] 1.[address] [facility] HEMATOLOGY PT 15.8 12.0 - 03/15 [place] 14.7 /[address] [facility] HEMATOLOGY PTT 37.7 22.9 - 03/15 [place] 35.8 /[address] [facility] HEMATOLOGY MCH 18.8 27.0 - 11/24 [place] 31.0 /[address] [facility] HEMATOLOGY MCV 62.9 80.0 - 03/15 [place] 94.0 /[address] [facility] HEMATOLOGY MPV 9.0 7.4 - 10.4 03/15 /[address] [facility] HEMATOLOGY Platelet 220 133 - 450 03/15 /[address] [facility] HEMATOLOGY RDW 18.2 11.5 - 03/15 14.5 /[address] [facility] HEMATOLOGY MCHC 29.9 32.0 - 03/15 Result [facility] 36.0 Comment: cbc Medical rechecked. [place] HEMATOLOGY Hct 41.1 42.0 - 03/15 [place] 54.0 /[address] [facility] HEMATOLOGY Hgb 12.3 14.0 - 03/15 [facility] 18.[address] [facility] HEMATOLOGY WBC 6.7 3.7 - 10.4 03/15 /[address] [facility] HEMATOLOGY RBC 6.54 4.70 - 03/[address] [facility] Pathology Reports No Data Provided for This Section Diagnostic Reports Report Value Date Source Retroperitoneal Complete PROCEDURE INFORMATION: 11/29/2019 [facility] US Exam: US Retroperitoneal; Complete; Kidneys and Bladder Exam date and time: 11/29/2019 2:26 PM Age: 74 years old Clinical indication: Condition or disease; Addit ional info: /claritza v ckd TECHNIQUE: Imaging protocol: Real-time ultrasound of the re troperitoneum with image documentation. Complete exam focused on the kidn eys and bladder. COMPARISON: No relevant prior studies available. FINDINGS: Right kidney: Echogenic renal cortex. No stones. No hydronephrosis. Measures 9.5 cm in length. Left kidney: Echogenic renal cortex. No stones. No hydronephrosis. Measures 9.4 cm in length. Anechoic cystic structures wit hout irregular septation or calcification, the largest m easuring up to 2.4 cm, consistent with simple renal cysts; no follow-up imaging is recommended. Bladder: Unremarkable. IMPRESSION: Medical renal disease. No hydronephrosis. Shreyas Yu MD On 11/29/2019 15:57:33; VR-ABAX [id number] Chest wo contrast CT Radiation Dose CTDIVOL = 0 (mGy): DLP = 380 (mGy-cm) 11/29/2019 [facility] PROCEDURE INFORMATION: Exam: CT Chest Without Contrast Exam date and time: 11/29/2019 3:06 AM Age: 74 years old Clinical indication: /ckd3. Dyspnea. SOB, hypoxi a TECHNIQUE: Imaging protocol: Computed tomography of the russ st without contrast. Radiation optimization: All CT scans at this facility use at least one of these dose optimization techniques: automated exposure control; mA and/or kV adjustment per patient size (includes targeted e xams where dose is matched to clinical indication); or iterative reconstructio n. COMPARISON: CHEST 1VIEW DX 11/28/2019 9:43 PM RADIATION DOSE METRICS: Total DLP (mGy-cm): 380 FINDINGS: Tracheobronchial tree: The central airway is pat ent. Lungs: Right upper and lower lobe mild posterior subpleural interstitial and patchy airspace opacities an d hazy ground-glass opacities within the left upper lobe may represent subsegmental atelectasis or i nfiltrate. Minimal left posterior dependent subsegmental atelectasis. Pleural space: No pneumothorax. No pleural effus ion. Heart: No cardiomegaly. No p ericardial effusion. Coronary artery calcifications are noted. Dense calcifications are iden tified within the region of the aortic valve/annulus. Aorta: The ascending aorta m easures up to 4 cm in diameter, mildly ectatic. The aortic arch and descending thoracic aort a appear within normal caliber limits. Lymph nodes: Unremarkable. No enlarged lymph nod es. Bones/joints: Multiple chronic right-sided rib f ractures. No acute fracture. Chronic appearing T4 and T7 vertebral body minim al compression deformities. Soft tissues: Unremarkable. Other findings: Small hiatal hernia. A 2.5 cm si mple appearing left superior pole cyst is noted. A couple punctate nonobstructing bilateral renal stones are noted. IMPRESSION: Right upper and lower lobe mild posterior subple ural interstitial and patchy airspace opacities and hazy ground-glass opaciti es within the left upper lobe may represent subsegmental atelectasis or infilt rate. Dense calcifications are identified within the r egion of the aortic valve/annulus. Correlation with ECHO can be obta ined if concern for aortic valve stenosis. The ascending aorta measures up to [address], mildly ectatic. Poppy Ayoub MD On 11/29/2019 03:33:22; ESME-TOD [id number] Chest 1view DX PROCEDURE INFORMATION: 11/28/2019 [facility] est Exam: XR Chest, 1 View Exam date and time: 11/28/2019 9:43 PM Age: 74 years old Clinical indication: Dyspnea; Additional info: / dyspnea TECHNIQUE: Imaging protocol: XR of the chest Views: 1 view. COMPARISON: No relevant prior studies available. FINDINGS: Lungs: No focal air space disease appreciated. Pleural space: No acute pathology appreciated. Heart/Mediastinum: No acute pathology appreciate d. Bones/joints: No displaced fracture appreciated. IMPRESSION: No acute pathology appreciated. Follow up recomm ended if ongoing clinical concern. Yesika Seals MD On 11/28/2019 22:15:25; VR-LBE [id number] Ext Lower Venous Doppler EXAM: US LEFT LOWER EXTREMITY VENOU S DOPPLER 03/15/2015 [facility] DATE: 03/15/2015 at 0037 hours. INDICATION: Pain in left lower limb. ADDITIONAL INFORMATION: Prior history of DVT. COMPARISON: None available. TECHNIQUE: Multiplanar rosalie rodger, color Doppler and spectral Doppler ultrasound images of the bilateral lower extremity veins were obtained. FINDINGS: A near occlusive thrombus is seen within the left popliteal vein with proximal extension to the superficial femoral vein. The left common femoral vein appears to be patent. IMPRESSION: Near occlusive thrombus in t he left popliteal vein with extension to the proximal femoral vein. Results were discussed with Dr. Vernon on 5 at 0059 hours Consultation Notes No Data Provided for This Section Discharge Summaries No Data Provided for This Section History and Physicals No Data Provided for This Section Vital Signs Vital Sign Value Date Comments Source Heart Rate 59 12/08/2019 [facility] Respitory Rate 18 12/08/2019 [facility] Systolic (mm Hg) 144 12/08/2019 [facility] t Diastolic (mm Hg) 87 12/08/[address] [facility] [address] Heart Rate 66 12/08/2019 [facility] Respitory Rate 18 12/08/2019 [facility] Systolic (mm Hg) 121 12/08/2019 [facility] t Diastolic (mm Hg) 68 12/08/[address] [facility] [address] Heart Rate 62 12/08/2019 [facility] Respitory Rate 18 12/08/2019 [facility] Systolic (mm Hg) 116 12/08/2019 [facility] t Diastolic (mm Hg) 65 12/08/[address] [facility] [address] Temperature Oral (F) 99.1 F 12/08/2019 [place] Temperature Oral (F) 98.4 F 12/07/2019 [facility] Temperature Oral (F) 98.2 F 12/07/2019 [facility] Temperature Oral (F) 97.9 F 12/07/2019 [facility] Heart Rate 58 12/07/2019 [facility] Respitory Rate 18 12/07/2019 [facility] Systolic (mm Hg) 156 12/07/2019 [facility] Diastolic (mm Hg) 83 12/07/[address] [address] Heart Rate 59 12/07/2019 [facility] Respitory Rate 17 12/07/2019 [facility] Systolic (mm Hg) 150 12/07/[place] [facility] Diastolic (mm Hg) 76 12/07/[address] Temperature Oral (F) 98.4 F 12/07/2019 [facility] Heart Rate 54 12/06/2019 [facility] Respitory Rate 16 12/06/2019 [facility] Systolic (mm Hg) 151 12/06/2019 [facility] Diastolic (mm Hg) 76 12/06/[address] [facility] [address] Temperature Oral (F) 97.5 F 12/06/2019 [facility] Heart Rate 90 11/30/2019 [facility] Respitory Rate 18 11/30/2019 [facility] Systolic (mm Hg) 108 11/30/2019 [facility] Diastolic (mm Hg) 94 11/30/[address] [facility] Rate 93 11/30/2019 [facility] Resp[facility] Rate 18 11/30/[facility] Systolic (mm Hg) 110 11/30/[facility] [place] Diastolic (mm Hg) 68 11/[facility] [facility] Rate 99 11/29/2019 [facility] Systolic (mm Hg) 129 11/29/2019 [facility] Diastolic (mm Hg) 78 11/29/[address] Respitory Rate 18 11/29/2019 [facility] Height 185.42 cm 11/29/2019 [facility] Weight 111.818 11/29/2019 [facility] BMI Calculated 32.52 11/29/2019 [facility] Height 185.42 cm 11/29/2019 [facility] BMI Calculated 33.05 11/29/2019 [facility] Weight 113.636 11/29/2019 [facility] Temperature Oral (F) 98.2 F 11/29/2019 [facility] [place] Respitory Rate 18 03/15/2015 [facility] Temperature Oral (F) 98.0 F 03/15/2015 [facility] Heart Rate 88 03/15/2015 [facility] Systolic (mm Hg) 133 03/15/2015 [facility] dical Center Diastolic (mm Hg) 78 03/15/2015 [facility] Systolic (mm Hg) 127 03/15/2015 [facility] Center Diastolic (mm Hg) 58 [facility] Rate 18 03/15/2015 [facility] Respitory Rate 16 03/15/2015 [facility] Temperature Oral (F) 97.0 F 03/15/2015 [facility] Systolic (mm Hg) 127 03/15/2015 [facility] dical Center Diastolic (mm Hg) 58 03/15/2015 [facility] Temperature Oral (F) 97.4 F 03/15/2015 [facility] Heart Rate 75 03/15/2015 [facility] Height 185.42 cm 03/15/2015 [facility] Weight 127.273 03/15/2015 [facility] BMI Calculated 37.02 03/15/2015 [facility] Temperature Oral (F) 98.5 F 12/23/2012 [facility] Systolic (mm Hg) 140 12/23/2012 [facility] Resp[place] Rate 18 12/23/2012 [facility] Heart Rate 74 12/23/2012 [facility] Diastolic (mm Hg) 90 12/23/[address] [facility] Respitory Rate 18 12/23/2012 [facility] Heart Rate 81 12/23/2012 [facility] Temperature Oral (F) 97.9 F 12/23/2012 [facility] [place] Systolic (mm Hg) 145 12/23/2012 [facility] Diastolic (mm Hg) 80 12/23/[address] [facility] [address] Weight 135 12/23/2012 [facility] Height 185.42 cm 12/23/2012 [facility] Encounters Location Location Encounter Encounter Reason Attending ADM DC Stat us Source Details Type Number For Provider Date Date Visit Emergency [id number] [facility] 12/23 12/23 [facility] [place] /2012 d [facility] [id number] Ashley Vernon 03/15 03/15 Martha Cooper Emergency /2014 [facility] [id number] [facility]28 [facility] Procedures No Data Provided for This Section Assessment and Plan Assessment and Plan Date Source Extracted from:Title: Discharge Summary * 12/08/2019 [facility] Author: Dameon Deluna DO Date: 12/08/19 Discharge Information Admit date: November 29, 2019 Discharge date: December 08, 2019 Total time spent on discharge: 33 minutes Discharge diagnoses: SVT HTN Covid-19 Moderate Chronic diastolic CHF Acute kidney injury Hx of DVT with IVC filter Diabetes mellitus type 2 Bilateral lower extremity chronic venous stasis ulcers derma evelynis Consulting physicians: Em Marie MD Office: MSO: [id number] Ser vice: Cardiology Garrett Suero MD Office: MSO: [id number] Service: Cardiology, Medicine Procedures: none History and Hospital Course: 74-year-old male with history of hyperte nsion, diabetes mellitus type 2, chronic systolic CHF with unknown ejection fraction, CKD stage III, chronic venous stasis bilateral lower extremities came to the hospital as he was short of breath. Johnny dominguez was noted to have heart rate of 160s. EKG showed SVT. Patient received diagnoses which revealed prolongated RI interval and normalization to sinus rhythm. 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 Patient was noted to have CLARITZA with creatinine of 3.40. Patient creatinine improved with IVF. EP suggested patient undergo ablation however abdon breaux refused and then requested to go ahead on 12/01/2019. Patient was followed by cardiology and remained in sinus rhythm with continued medical management and recommended for continue beta-eladio w ith parameters and Xarelto, will follow- up outpatient EP and also of note, patient had negative cover testing x2. Condition: Stable Disposition: Home Medications: Refer to the discharge med rec Instructions: Activity: No restrictions. Follow-up: Cardiology and EP in 4 weeks, PCP 1 week Extracted from:Title: EP Progress Note Author: Vicky Navarrete NP Date: 12/08/19 Impression and Plan This is a 74 years old male with past me dical history of hypertension, diabetes mellitus type II, gout, recurrent DVT, chronic diastolic congestive heart failure brought in by EMS with complaints of dyspnea. Found to have SVT. 1. Supraventricular tachycardia 2. Covid+ 3. Moderate 4. HTN 5. Chronic diastolic heart failure 6. 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 remains in sinus overnight. -okay to discharge from EP standpoint. Follow up in EP clini c in 4 weeks. Extracted from:Title: History and Physical Author: Steve Koch MD Date: 11/28/19 This is a 74-year-old man withhigh blood pressure, type 2 diabetes, chronic kidney disease stage III,chronic systolic CHF,chronicvenous stasisof both legswho is admitted to inpatient status secondary to acute on chronic renal failurelikely due to acutetubular necrosis,supraventricular tachycardia,and unexplained leukocytosis. We will manage on telemetry under contin uous cardiac monitoring. Trend cardiac enzymes troponin every 4x2. Send blood sputum and urine to the lab for analysis and culture. Order procalcitonin lactic aci d. Order CT scan of the chest without co ntrast. Bolus 1 L normal saline. Continue with lactated Ringer's IV solution at 75 cc an hour. Control pain with morphine sulfate 2 mg IV every 4 hours PRN. Control nausea with Zofran 4 mg IV every 6 hours PRN. Order CBC complete metabolic panel magnesium level. Consult social servicesfor additional recommendations regarding homelessness. Begin Accu-Cheks b efore meals and at bedtime cover with hi gh-dose insulin sliding scale. Resume other home medications as soon as a full list is brought for medication reconciliation. Initiate DVT prophylaxis GI prophyla xis. Additional recommendations will depend on results of e diagnostics. Acute on chronic renal failure(N17.9),Acute renal failure (A RF)(N17.9) Ordered: Admit/Condition, 11/29/19 2:11:00 CDSandor Ruth tatus: Inpatient, Telemetry Capable Location, Expected LOS: 3 or Greater Midnights, Steve Koch MD, Admit MD Review/Approve Yes, Isolation: Grace Antony, Acute on chronic renal failure | SVT (supraventricul ar tac... Admit/Condition, 11/28/19 22:54:00 CDT, Status: Out Patient with Observation Services, Telemetry Capable Location, Expected LOS: 1 Midnight, Steve Koch MD, [place] Review/Approve Yes, SVT (supraventricular tachycardia) | Acute renal failure (ARF) Chronic systolic CHF (congestive heart failure)(I50.22) Ordered: Admit/Condition, 11/29/19 2:11:00 CDT, S tatus: Inpatient, Telemetry Capable Location, Expected LOS: 3 or [facility] Midn[facility], Steve Koch MD, [place] Review/Approve Yes, Isolation: ContactGrace, Acute on chronic renal failure | SVT (supraventricul ar tac... Chronic venous stasis dermatitis of both lower extremities( I87.2) Ordered: Admit/Condition, 11/29/19 2:11:00 CDT, S tatus: Inpatient, Telemetry Capable Location, Expected LOS: 3 or [facility] Midnights, Steve Koch MD, [place] Review/Approve Yes, Isolation: ContactGrace, Acute on chronic renal failure | SVT (supraventricul ar tac... SVT (supraventricular tachycardia)(I47.1) Ordered: Admit/Condition, 11/29/19 2:11:00 CDT, S tatus: Inpatient, Telemetry Capable Location, Expected LOS: 3 or [facility] Midn[facility], Steve Koch MD, [place] Review/Approve Yes, Isolation: Grace Antony, Acute on chronic renal failure | SVT (supraventricul ar tac... Admit/Condition, 11/28/19 22:54:00 CDT, Status: Out Patient with Observation Services, Telemetry Capable Location, Expected LOS: 1 Midnight, Steve Koch MD, [place] Review/Approve Yes, SVT (supraventricular tachycardia) | Acute renal failure (ARF) Uncontrolled diabetes mellitus(E11.65) Ordered: Admit/Condition, 11/29/19 2:11:00 CDT, S tatus: Inpatient, Telemetry Capable Location, Expected LOS: 3 or [facility] Midnights, Steve Koch MD, Admit MD Review/Approve Yes, Isolation: Contact, Grace erica, Acute on chronic renal failure | SVT (supraventricul ar tac... Extracted from:Title: Progress Note 12/07/2019 [facility] Author: [place] MD Date: 12/06/19 74-year-old male with history of hypertension, diabetes mellitus type 2, chronic systolic CHF with unknown ejection fraction, CKD stage III, chronic venous stasis bilateral lower extremities cam e to the hospital as he was short of tj ath. Patient was noted to have heart rate of 160s. EKG showed SVT. Patient received diagnoses which revealed prolongated RI interval and normalization to sinus rh ythm. 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 Patient was noted to have CLARITZA with creatinine of 3.40. Patient started on IV fluids. Creatinine slowly improving. EP suggested patient underg o ablation however initially refused and then requested to go ahead on 12/01/2019 Acute on chronic renal failure(N17.9), Acute renal failur e (ARF)(N17.9) Chronic systolic CHF (congestive heart failure)(I50.22) Chronic venous stasis dermatitis of both lower extremities (I87.2) SVT (supraventricular tachycardia)(I47.1) Uncontrolled diabetes mellitus(E11.65) Plan: COVID-19 testing done x2 is negative. Plan for ablation AM. N.p.o. after midnight. Continue metoprolol and Xarelto. Patient can be moved out of the COVID unit Xarelto Possible DC in the next 1 to 2 days after ablation Extracted from:Title: History and Physical Author: Steve Koch MD Date: 11/28/19 This is a 74-year-old man withhigh blood pressure, type 2 diabetes, chronic kidney disease stage III,chronic systolic CHF,chronicvenous stasisof both legswho is admitted to inpatient status secondary to acute on chronic renal failurelikely due to acutetubular necrosis,supraventricular tachycardia,and unexplained leukocytosis. We will manage on telemetry under contin uous cardiac monitoring. Trend cardiac enzymes troponin every 4x2. Send blood sputum and urine to the lab for analysis and culture. Order procalcitonin lactic aci d. Order CT scan of the chest without co ntrast. Bolus 1 L normal saline. Continue with lactated Ringer's IV solution at 75 cc an hour. Control pain with morphine sulfate 2 mg IV every 4 hours PRN. Control nausea with Zofran 4 mg IV every 6 hours PRN. Order CBC complete metabolic panel magnesium level. Consult social servicesfor additional recommendations regarding homelessness. Begin Accu-Cheks b efore meals and at bedtime cover with hi gh-dose insulin sliding scale. Resume other home medications as soon as a full list is brought for medication reconciliation. Initiate DVT prophylaxis GI prophyla xis. Additional recommendations will depend on results of e diagnostics. Acute on chronic renal failure(N17.9),Acute renal failure (A RF)(N17.9) Ordered: Admit/Condition, 11/29/19 2:11:00 CDT, S tatus: Inpatient, Telemetry Capable Location, Expected LOS: 3 or Greater Midnights, Steve Koch MD, [place] Review/Approve Yes, Isolation: Grace Antony Acute on chronic renal failure | SVT (supraventricul ar tac... Admit/Condition, 11/28/19 22:54:00 CDT, Status: Out Patient with Observation Services, Telemetry Capable Location, Expected LOS: 1 Midnight, Steve Koch MD, [place] Review/Approve Yes, SVT (supraventricular tachycardia) | Acute renal failure (ARF) Chronic systolic CHF (congestive heart failure)(I50.22) Ordered: Admit/Condition, 11/29/19 2:11:00 CDT, S tatus: Inpatient, Telemetry Capable Location, Expected LOS: 3 or Greater Midnights, Steve Koch MD, [place] Review/Approve Yes, Isolation: Grace Antony Acute on chronic renal failure | SVT (supraventricul ar tac... Chronic venous stasis dermatitis of both lower extremities( I87.2) Ordered: Admit/Condition, 11/29/19 2:11:00 CDT, S tatus: Inpatient, Telemetry Capable Location, Expected LOS: 3 or Greater Midnights, Steve Koch MD, [place] Review/Approve Yes, Isolation: Contact, D roplet, Acute on chronic renal failure | SVT (supraventricul ar tac... SVT (supraventricular tachycardia)(I47.1) Ordered: Admit/Condition, 11/29/19 2:11:00 CDT, S tatus: Inpatient, Telemetry Capable Location, Expected LOS: 3 or Greater Midnights, Steve Koch MD, it Review/Approve Yes, Isolation: ContactGrace, Acute on chronic renal failure | SVT (supraventricul ar tac... Admit/Condition, 11/28/19 22:54:00 CDT, Status: Out Patient with Observation Services, Telemetry Capable Location, Expected LOS: 1 Midnight, Steve Koch MD, it Review/Approve Yes, SVT (supraventricular tachycardia) | Acute renal failure (ARF) Uncontrolled diabetes mellitus(E11.65) Ordered: Admit/Condition, 11/29/19 2:11:00 CDT, S tatus: Inpatient, Telemetry Capable Location, Expected LOS: 3 or Greater Midnights, Steve Koch MD, it Review/Approve Yes, Isolation: ContactGrace, Acute on chronic renal failure | SVT (supraventricul ar tac... Extracted from:Title: Progress Note 12/07/2019 [facility] Author: South Gant MD Date: 12/06/19 74-year-old male with history of hypertension, diabetes mellitus type 2, chronic systolic CHF with unknown ejection fraction, CKD stage III, chronic venous stasis bilateral lower extremities cam e to the hospital as he was short of tj ath. Patient was noted to have heart rate of 160s. EKG showed SVT. Patient received diagnoses which revealed prolongated RI interval and normalization to sinus rh ythm. 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 Patient was noted to have CLARITZA with creatinine of 3.40. Patient started on IV fluids. Creatinine slowly improving. EP suggested patient underg o ablation however initially refused and then requested to go ahead on 12/01/2019 Acute on chronic renal failure(N17.9), Acute renal failur e (ARF)(N17.9) Chronic systolic CHF (congestive heart failure)(I50.22) Chronic venous stasis dermatitis of both lower extremities (I87.2) SVT (supraventricular tachycardia)(I47.1) Uncontrolled diabetes mellitus(E11.65) Plan: COVID-19 testing done x2 is negative. Plan for ablation AM. N.p.o. after midnight. Continue metoprolol and Xarelto. Patient can be moved out of the COVID unit Xarelto Possible DC in the next 1 to 2 days after ablation Extracted from:Title: History and Physical Author: Steve Koch MD Date: 11/28/19 This is a 74-year-old man withhigh blood pressure, type 2 diabetes, chronic kidney disease stage III,chronic systolic CHF,chronicvenous stasisof both legswho is admitted to inpatient status secondary to acute on chronic renal failurelikely due to acutetubular necrosis,supraventricular tachycardia,and unexplained leukocytosis. We will manage on telemetry under contin uous cardiac monitoring. Trend cardiac enzymes troponin every 4x2. Send blood sputum and urine to the lab for analysis and culture. Order procalcitonin lactic aci d. Order CT scan of the chest without co ntrast. Bolus 1 L normal saline. Continue with lactated Ringer's IV solution at 75 cc an hour. Control pain with morphine sulfate 2 mg IV every 4 hours PRN. Control nausea with Zofran 4 mg IV every 6 hours PRN. Order CBC complete metabolic panel magnesium level. Consult social servicesfor additional recommendations regarding homelessness. Begin Accu-Cheks b efore meals and at bedtime cover with hi gh-dose insulin sliding scale. Resume other home medications as soon as a full list is brought for medication reconciliation. Initiate DVT prophylaxis GI prophyla xis. Additional recommendations will depend on results of e diagnostics. Acute on chronic renal failure(N17.9),Acute renal failure (A RF)(N17.9) Ordered: Admit/Condition, 11/29/19 2:11:00 CDT, S tatus: Inpatient, Telemetry Capable Location, Expected LOS: 3 or Greater Midnights, Steve Koch MD, Admit MD Review/Approve Yes, Isolation: Grace Antony, Acute on chronic renal failure | SVT (supraventricul ar tac... Admit/Condition, 11/28/19 22:54:00 CDT, Status: Out Patient with Observation Services, Telemetry Capable Location, Expected LOS: 1 Midnight, Steve Koch MD, [place] Review/Approve Yes, SVT (supraventricular tachycardia) | Acute renal failure (ARF) Chronic systolic CHF (congestive heart failure)(I50.22) Ordered: Admit/Condition, 11/29/19 2:11:00 CDT, S tatus: Inpatient, Telemetry Capable Location, Expected LOS: 3 or Greater Midnights, Steve Koch MD, [place] Review/Approve Yes, Isolation: Grace Antony, Acute on chronic renal failure | SVT (supraventricul ar tac... Chronic venous stasis dermatitis of both lower extremities( I87.2) Ordered: Admit/Condition, 11/29/19 2:11:00 CDT, S tatus: Inpatient, Telemetry Capable Location, Expected LOS: 3 or Greater Midnights, Steve Koch MD, [place] Review/Approve Yes, Isolation: Grace Antony, Acute on chronic renal failure | SVT (supraventricul ar tac... SVT (supraventricular tachycardia)(I47.1) Ordered: Admit/Condition, 11/29/19 2:11:00 CDT, S tatus: Inpatient, Telemetry Capable Location, Expected LOS: 3 or Greater Midnights, Steve Koch MD, [place] Review/Approve Yes, Isolation: Grace Antony Acute on chronic renal failure | SVT (supraventricul ar tac... Admit/Condition, 11/28/19 22:54:00 CDT, Status: Out Patient with Observation Services, Telemetry Capable Location, Expected LOS: 1 Midnight, Steve Koch MD, [place] Review/Approve Yes, SVT (supraventricular tachycardia) | Acute renal failure (ARF) Uncontrolled diabetes mellitus(E11.65) Ordered: Admit/Condition, 11/29/19 2:11:00 CDT, S tatus: Inpatient, Telemetry Capable Location, Expected LOS: 3 or Greater Midnights, Steve Koch MD, [place] Review/Approve Yes, Isolation: Contact, D roplet, Acute on chronic renal failure | SVT (supraventricul ar tac... Extracted from:Title: [facility]: South Gant MD Date: 12/06/19 74-year-old male with history of hypertension, diabetes mellitus type 2, chronic systolic CHF with unknown ejection fraction, CKD stage III, chronic venous stasis bilateral lower extremities cam e to the hospital as he was short of tj ath. Patient was noted to have heart rate of 160s. EKG showed SVT. Patient received diagnoses which revealed prolongated RI interval and normalization to sinus rh ythm. 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 Patient was noted to have CLARITZA with creatinine of 3.40. Patient started on IV fluids. Creatinine slowly improving. EP suggested patient underg o ablation however initially refused and then requested to go ahead on 12/01/2019 Acute on chronic renal failure(N17.9), Acute renal failur e (ARF)(N17.9) Chronic systolic CHF (congestive heart failure)(I50.22) Chronic venous stasis dermatitis of both lower extremities (I87.2) SVT (supraventricular tachycardia)(I47.1) Uncontrolled diabetes mellitus(E11.65) Plan: COVID-19 testing done x2 is negative. Plan for ablation AM. N.p.o. after midnight. Continue metoprolol and Xarelto. Patient can be moved out of the COVID unit Xarelto Possible DC in the next 1 to 2 days after ablation Extracted from:Title: History and Physical Author: Steve Koch MD Date: 11/28/19 This is a 74-year-old man withhigh blood pressure, type 2 diabetes, chronic kidney disease stage III,chronic systolic CHF,chronicvenous stasisof both legswho is admitted to inpatient status secondary to acute on chronic renal failurelikely due to acutetubular necrosis,supraventricular tachycardia,and unexplained leukocytosis. We will manage on telemetry under contin uous cardiac monitoring. Trend cardiac enzymes troponin every 4x2. Send blood sputum and urine to the lab for analysis and culture. Order procalcitonin lactic aci d. Order CT scan of the chest without co ntrast. Bolus 1 L normal saline. Continue with lactated Ringer's IV solution at 75 cc an hour. Control pain with morphine sulfate 2 mg IV every 4 hours PRN. Control nausea with Zofran 4 mg IV every 6 hours PRN. Order CBC complete metabolic panel magnesium level. Consult social servicesfor additional recommendations regarding homelessness. Begin Accu-Cheks b efore meals and at bedtime cover with hi gh-dose insulin sliding scale. Resume other home medications as soon as a full list is brought for medication reconciliation. Initiate DVT prophylaxis GI prophyla xis. Additional recommendations will depend on results of e diagnostics. Acute on chronic renal failure(N17.9),Acute renal failure (A RF)(N17.9) Ordered: Admit/Condition, 11/29/19 2:11:00 CDT, S tatus: Inpatient, Telemetry Capable Location, Expected LOS: 3 or Greater Midnights, Steve Koch MD, [place] Review/Approve Yes, Isolation: Grace Antony Acute on chronic renal failure | SVT (supraventricul ar tac... Admit/Condition, 11/28/19 22:54:00 CDT, Status: Out Patient with Observation Services, Telemetry Capable Location, Expected LOS: 1 Midnight, Steve Koch MD, [place] Review/Approve Yes, SVT (supraventricular tachycardia) | Acute renal failure (ARF) Chronic systolic CHF (congestive heart failure)(I50.22) Ordered: Admit/Condition, 11/29/19 2:11:00 CDT, S tatus: Inpatient, Telemetry Capable Location, Expected LOS: 3 or Greater Midnights, Steve Koch MD, [place] Review/Approve Yes, Isolation: Grace Antony Acute on chronic renal failure | SVT (supraventricul ar tac... Chronic venous stasis dermatitis of both lower extremities( I87.2) Ordered: Admit/Condition, 11/29/19 2:11:00 CDT, S tatus: Inpatient, Telemetry Capable Location, Expected LOS: 3 or Greater Midnights, Steve Koch MD, [place] Review/Approve Yes, Isolation: Grace Antony Acute on chronic renal failure | SVT (supraventricul ar tac... SVT (supraventricular tachycardia)(I47.1) Ordered: Admit/Condition, 11/29/19 2:11:00 CDT, S tatus: Inpatient, Telemetry Capable Location, Expected LOS: 3 or Greater Midnights, Steve Koch MD, Admit Review/Approve Yes, Isolation: Grace Antony, Acute on chronic renal failure | SVT (supraventricul ar tac... Admit/Condition, 11/28/19 22:54:00 CDT, Status: Out Patient with Observation Services, Telemetry Capable Location, Expected LOS: 1 Midnight, Steve Koch MD, [place] Review/Approve Yes, SVT (supraventricular tachycardia) | Acute renal failure (ARF) Uncontrolled diabetes mellitus(E11.65) Ordered: Admit/Condition, 11/29/19 2:11:00 CDT, S tatus: Inpatient, Telemetry Capable Location, Expected LOS: 3 or Greater Midnights, Steve Koch MD, [place] Review/Approve Yes, Isolation: Grace Antony, Acute on chronic renal failure | SVT (supraventricul ar tac... Extracted from:Title: WET END HELPER Note 11/30/2019 [facility] Author: Ross Knight MD Date: 11/29/19 WET END HELPER called at 5:38pm for chest pain and tachycardia. Twelve-lead EKG shows patient is in supraventricular tachycardia. 6 mg of adenosine was given patient went into sinus rhythm with rates in the 90s. His chest pain resolved. Plan. We will continue to monitor closely. Extracted from:Title: History and Physical Author: Steve Koch MD Date: 11/28/19 This is a 74-year-old man withhigh blood pressure, type 2 diabetes, chronic kidney disease stage III,chronic systolic CHF,chronicvenous stasisof both legswho is admitted to inpatient status secondary to acute on chronic renal failurelikely due to acutetubular necrosis,supraventricular tachycardia,and unexplained leukocytosis. We will manage on telemetry under contin uous cardiac monitoring. Trend cardiac enzymes troponin every 4x2. Send blood sputum and urine to the lab for analysis and culture. Order procalcitonin lactic aci d. Order CT scan of the chest without co ntrast. Bolus 1 L normal saline. Continue with lactated Ringer's IV solution at 75 cc an hour. Control pain with morphine sulfate 2 mg IV every 4 hours PRN. Control nausea with Zofran 4 mg IV every 6 hours PRN. Order CBC complete metabolic panel magnesium level. Consult social servicesfor additional recommendations regarding homelessness. Begin Accu-Cheks b efore meals and at bedtime cover with hi gh-dose insulin sliding scale. Resume other home medications as soon as a full list is brought for medication reconciliation. Initiate DVT prophylaxis GI prophyla xis. Additional recommendations will depend on results of e diagnostics. Acute on chronic renal failure(N17.9),Acute renal failure (A RF)(N17.9) Ordered: Admit/Condition, 11/29/19 2:11:00 CDT, S tatus: Inpatient, Telemetry Capable Location, Expected LOS: 3 or Greater Midnights, Steve Koch MD, [place] Review/Approve Yes, Isolation: Grace Antony Acute on chronic renal failure | SVT (supraventricul ar tac... Admit/Condition, 11/28/19 22:54:00 CDT, Status: Out Patient with Observation Services, Telemetry Capable Location, Expected LOS: 1 Midnight, Steve Koch MD, [place] Review/Approve Yes, SVT (supraventricular tachycardia) | Acute renal failure (ARF) Chronic systolic CHF (congestive heart failure)(I50.22) Ordered: Admit/Condition, 11/29/19 2:11:00 CDT, S tatus: Inpatient, Telemetry Capable Location, Expected LOS: 3 or Greater Midnights, Steve Koch MD, [place] Review/Approve Yes, Isolation: Grace Antony Acute on chronic renal failure | SVT (supraventricul ar tac... Chronic venous stasis dermatitis of both lower extremities( I87.2) Ordered: Admit/Condition, 11/29/19 2:11:00 CDT, S tatus: Inpatient, Telemetry Capable Location, Expected LOS: 3 or Greater Midnights, Steve Koch MD, [place] Review/Approve Yes, Isolation: Contact, D roplet, Acute on chronic renal failure | SVT (supraventricul ar tac... SVT (supraventricular tachycardia)(I47.1) Ordered: Admit/Condition, 11/29/19 2:11:00 CDT, S tatus: Inpatient, Telemetry Capable Location, Expected LOS: 3 or Greater Midnights, Steve Koch MD, Admit Review/Approve Yes, Isolation: ContactGrace, Acute on chronic renal failure | SVT (supraventricul ar tac... Admit/Condition, 11/28/19 22:54:00 CDT, Status: Out Patient with Observation Services, Telemetry Capable Location, Expected LOS: 1 Midnight, Steve Koch MD, it Review/Approve Yes, SVT (supraventricular tachycardia) | Acute renal failure (ARF) Uncontrolled diabetes mellitus(E11.65) Ordered: Admit/Condition, 11/29/19 2:11:00 CDT, S tatus: Inpatient, Telemetry Capable Location, Expected LOS: 3 or Greater Midnights, Steve Koch MD, it Review/Approve Yes, Isolation: ContactGrace, Acute on chronic renal failure | SVT (supraventricul ar tac... Extracted from:Title: WET END HELPER Note 11/30/2019 [facility] Author: Ross Knight MD Date: 11/29/19 WET END HELPER called at 5:38pm for chest pain and tachycardia. Twelve-lead EKG shows patient is in supraventricular tachycardia. 6 mg of adenosine was given patient went into sinus rhythm with rates in the 90s. His chest pain resolved. Plan. We will continue to monitor closely. Extracted from:Title: History and Physical Author: Steve Koch MD Date: 11/28/19 This is a 74-year-old man withhigh blood pressure, type 2 diabetes, chronic kidney disease stage III,chronic systolic CHF,chronicvenous stasisof both legswho is admitted to inpatient status secondary to acute on chronic renal failurelikely due to acutetubular necrosis,supraventricular tachycardia,and unexplained leukocytosis. We will manage on telemetry under contin uous cardiac monitoring. Trend cardiac enzymes troponin every 4x2. Send blood sputum and urine to the lab for analysis and culture. Order procalcitonin lactic aci d. Order CT scan of the chest without co ntrast. Bolus 1 L normal saline. Continue with lactated Ringer's IV solution at 75 cc an hour. Control pain with morphine sulfate 2 mg IV every 4 hours PRN. Control nausea with Zofran 4 mg IV every 6 hours PRN. Order CBC complete metabolic panel magnesium level. Consult social servicesfor additional recommendations regarding homelessness. Begin Accu-Cheks b efore meals and at bedtime cover with hi gh-dose insulin sliding scale. Resume other home medications as soon as a full list is brought for medication reconciliation. Initiate DVT prophylaxis GI prophyla xis. Additional recommendations will depend on results of e diagnostics. Acute on chronic renal failure(N17.9),Acute renal failure (A RF)(N17.9) Ordered: Admit/Condition, 11/29/19 2:11:00 CDT, S tatus: Inpatient, Telemetry Capable Location, Expected LOS: 3 or Greater Midnights, Steve Koch MD, [place] Review/Approve Yes, Isolation: Grace Antony, Acute on chronic renal failure | SVT (supraventricul ar tac... Admit/Condition, 11/28/19 22:54:00 CDT, Status: Out Patient with Observation Services, Telemetry Capable Location, Expected LOS: 1 Midnight, Steve Koch MD, [place] Review/Approve Yes, SVT (supraventricular tachycardia) | Acute renal failure (ARF) Chronic systolic CHF (congestive heart failure)(I50.22) Ordered: Admit/Condition, 11/29/19 2:11:00 CDT, S tatus: Inpatient, Telemetry Capable Location, Expected LOS: 3 or Greater Midnights, Steve Koch MD, [place] Review/Approve Yes, Isolation: Grace Antony, Acute on chronic renal failure | SVT (supraventricul ar tac... Chronic venous stasis dermatitis of both lower extremities( I87.2) Ordered: Admit/Condition, 11/29/19 2:11:00 CDT, S tatus: Inpatient, Telemetry Capable Location, Expected LOS: 3 or Greater Midnights, Steve Koch MD, Admit Review/Approve Yes, Isolation: Grace Antony, Acute on chronic renal failure | SVT (supraventricul ar tac... SVT (supraventricular tachycardia)(I47.1) Ordered: Admit/Condition, 11/29/19 2:11:00 CDT, S tatus: Inpatient, Telemetry Capable Location, Expected LOS: 3 or Greater Midnights, Steve Koch MD, Admit Review/Approve Yes, Isolation: Grace Antony, Acute on chronic renal failure | SVT (supraventricul ar tac... Admit/Condition, 11/28/19 22:54:00 CDT, Status: Out Patient with Observation Services, Telemetry Capable Location, Expected LOS: 1 Midnight, Steve Koch MD, [place] Review/Approve Yes, SVT (supraventricular tachycardia) | Acute renal failure (ARF) Uncontrolled diabetes mellitus(E11.65) Ordered: Admit/Condition, 11/29/19 2:11:00 CDT, S tatus: Inpatient, Telemetry Capable Location, Expected LOS: 3 or Greater Midnights, Steve Koch MD, [place] Review/Approve Yes, Isolation: Grace Antony Acute on chronic renal failure | SVT (supraventricul ar tac... Plan of Care No Data Provided for This Section Social History Social History Date Source Social History TypeResponse 11/29/2019 [facility] Alcohol Past Smoking Status Never smoker; Exposure to Tobacco Smoke None; Cigarette Smoking Last 365 Days No; Reg Smoking Cessation Counseling No entered on: 11/29/19 Social History TypeResponse 03/15/2015 [facility] Smoking Status Never smoker; Exposure to Tobacco Smoke None; Cigarette Smoking Last 365 Days No; Reg Smoking Cessation Counseling No Family History No Data Provided for This Section Advance Directives No Data Provided for This Section Functional Status No Data Provided for This Section
--- OUTSIDE RECORDS SUMMARY | 2020-02-26 10:28 | XMS REPORT | Summary of Care ---
:1945 Author Organization [facility] Address [address] [place] [id number]- Encounter HQ Omayra(FIN) [id number] Date(s): 11/28/19 - 12/08/[address] [address]- Encounter Diagnosis Supraventricular tachycardia (Final) - Discharge Disposition: Home or Self Care Attending Physician: Steve Koch MD Admitting Physician: Steve Koch MD Vital Signs Most recent to oldest 1 2 3 [Reference Range]: Height 185.42 cm 185.42 cm (11/29/19 3:57 AM) (11/28/19 9:04 PM) Current Weight 116.864 kg 115.9 kg (12/08/19 4:00 AM) (12/07/19 4:25 AM) Temperature Oral [96.4-99.1 99.1 DegF 98.4 DegF 98.2 DegF DegF] (12/07/19 8:00 PM) (12/07/19 6:50 PM) (12/07/19 5:4 0 PM) Blood Pressure [90-140/60-90 144/87 mmHg 121/68 mmHg 116 /65 mmHg mmHg] *HI* (12/08/19 11:54 AM) (12/08/19 8:00 AM) (12/08/19 4:00 PM) Respiratory Rate [14-20 BRMIN] 18 BRMIN 18 BRMIN 1 8 BRMIN (12/08/19 4:00 PM) (12/08/19 11:54 AM) (12/08/19 8: 00 AM) Peripheral Pulse Rate [60-100 59 bpm 66 bpm 62 bpm bpm] *LOW* (12/08/19 11:54 AM) (12/08/19 8:00 AM) (12/08/19 4:00 PM) Weight 111.818 kg 113.636 kg (11/29/19 3:57 AM) (11/28/19 9:04 PM) Body Mass Index 32.52 m2 33.05 m2 (11/29/19 3:57 AM) (11/28/19 9:04 PM) Problem List Condition Effective Dates Status Health Status Informant Diabetes mellitus(Confirmed) Resolved Gout(Confirmed) Resolved Hypertension(Confirmed) Resolved Neuropathy(Confirmed) Resolved Type II diabetes mellitus poorly Active controlled(Confirmed) Allergies, Adverse Reactions, Alerts No Known Medication Allergies Medications acetaminophen 650 mg, 2 tab, Route: PO, Drug form: TAB, Q4H, Dosing Weight 113.636, kg, PRN, Start date: 11/29/19 2:11:00 CDT, Duration: 30 day, Stop date: 12/29/19 2:10:00 CDT, For Temp > 100.4 F, headache, 0 Notes: Do not exceed 4 gm/day. (Same as: Tylenol) Start Date: 11/29/19 Stop Date: 12/08/19 Status: Discontinuedadenosine 6 mg, 2 mL, Route: IVP, Drug form: INJ, ONCE, Dosing Weight 111.818, kg, Start date: 11/29/19 17:36:00 CDT, Stop date: 11/29/19 17:36:00 CDT, 0 Notes: Rapid IV PUSH over 1-2 sec; Flush line immediately after drug is given. Start Date: 11/29/19 Stop Date: 11/29/19 Status: Completedcarvedilol 3.125 mg, 1 tab, Route: PO, Drug form: TAB, Q12H, Dosing Weight 111.818, kg, Start date: 11/29/19 21:00:00 CDT, Duration: 30 day, Stop date: 12/29/19 9:00:00 CDT, 0 Notes: Give with food. (Same As: Coreg) Start Date: 11/29/19 Stop Date: 11/30/19 Status: DiscontinuedDextrose 50% Syringe (D50W) 12.5 gm, 25 mL, Route: IVP, Drug Form: INJ, Dosing Weight 113.636, kg, PRN, PRN Blood Glucose Results, Start date: 11/29/19 2:13:00 CDT, Duration: 30 day, Stop date: 12/29/19 2:12:00 CDT, 0 Start Date: 11/29/19 Stop Date: 12/08/19 Status: DiscontinuedDextrose 50% Syringe (D50W) 25 gm, 50 mL, Route: IVP, Drug Form: INJ, Dosing Weight 113.636, kg, PRN, PRN Blood Glucose Results,Start date: 11/29/19 2:13:00 CDT, Duration: 30 day, Stop date: 12/29/19 2:12:00 CDT, 0 Start Date: 11/29/19 Stop Date: 12/08/19 Status: Discontinueddocusate 100 mg, 1 cap, Route: PO, Drug form: CAP, BID, Dosing Weight 113.636, kg, PRN as needed for constipation, Start date: 11/29/19 2:11:00 CDT, Duration: 30 day, Stop date: 12/29/19 2:10:00 CDT, 0 Notes: (Same as: Colace) (Do Not Crush) Start Date: 11/29/19 Stop Date: 12/08/19 Status: DiscontinuedDuoNeb inhalation solution 3 ml, Route: NEB, Drug Form: SOLN, Dosing Weight 113.636, kg, RQ6H, PRN, Start date: 11/29/19 2:11:00 CDT, Duration: 30 day, Stop date: 12/29/19 2:10:00 CDT, sob, wheezing, 0 Notes: (Same as: Duoneb) Start Date: 11/29/19 Stop Date: 12/08/19 Status: DiscontinuedglipiZIDE 5 mg oral tablet 5 mg = 1 tab, PO, BID-Before Meals, # 30 tab, 1 Refill(s) Start Date: 11/29/19 Stop Date: 12/08/19 Status: DiscontinuedglipiZIDE 5 mg oral tablet 5 mg = 1 tab, PO, BID-Before Meals, # 60 tab, 0 Refill(s) Start Date: 12/08/19 Stop Date: 01/07/20 Status: Orderedglucagon 1 mg, Route: IM, Drug form: PDR/INJ, PRN, Dosing Weight 113.636, kg, PRN Blood Glucose Results, Start date: 11/29/19 2:13:00 CDT, Duration: 30 day, Stop date: 12/29/19 2:12:00 CDT, 0 Start Date: 11/29/19 Stop Date: 12/08/19 Status: Discontinuedheparin 5,000 unit, 1 mL, Route: SUB-Q, Drug form: INJ, Q8H, Dosing Weight 113.636, kg, Start date: 208:00:00 CDT, Duration: 30 day, Stop date: 12/29/19 0:00:00 CDT, 0 Notes: porcine heparin Start Date: 11/29/19 Stop Date: 11/29/19 Status: DiscontinuedhydrALAZINE 20 mg, 1 mL, Route: IVP, Drug form: INJ, Q4H, Dosing Weight 113.636, kg, PRN, Start date: 11/29/19 2:11:00 CDT, Duration: 30 day, Stop date: 12/29/19 2:10:00 CDT, systolic > 160, 0 Notes: (Same as: Apresoline)Push over 5 minutes Start Date: 11/29/19 Stop Date: 12/08/19 Status: Discontinuedinsulin lispro 3 unit, 0.03 mL, Route: SUB-Q, Drug form: SOLN, TID-Before Meals, Dosing Weight 113.636, kg, PRN Blood Glucose Results, Start date: 11/29/19 2:13:00 CDT, Duration: 30 day, Stop date: 12/29/19 2:12:00 CDT, 0 Notes: (Same as: Humalog) Roll in palms of hands gently; Do not shake vigorously. WASTE: F/P - Black; E - Municipal Trash BinStable for 28 days at room temperature.Expires in days from Date Start Date: 11/29/19 Stop Date: 12/08/19 Status: Discontinuedinsulin lispro 6 unit, 0.06 mL, Route: SUB-Q, Drug form: SOLN, TID-Before Meals, Dosing Weight 113.636, kg, PRN Blood Glucose Results, Start date: 11/29/19 2:13:00 CDT, Duration: 30 day, Stop date: 12/29/19 2:12:00 CDT, 0 Notes: (Same as: Humalog) Roll in palms of hands gently; Do not shake vigorously. WASTE: F/P - Black; E - Municipal Trash BinStable for 28 days at room temperature.Expires in days from Date Start Date: 11/29/19 Stop Date: 12/08/19 Status: Discontinuedinsulin lispro 9 unit, 0.09 mL, Route: SUB-Q, Drug form: SOLN, TID-Before Meals, Dosing Weight 113.636, kg, PRN Blood Glucose Results, Start date: 11/29/19 2:13:00 CDT, Duration: 30 day, Stop date: 12/29/19 2:12:00 CDT, 0 Notes: (Same as: Humalog) Roll in palms of hands gently; Do not shake vigorously. WASTE: F/P - Black; E - Municipal Trash BinStable for 28 days at room temperature.Expires in days from Date Start Date: 11/29/19 Stop Date: 12/08/19 Status: Discontinuedinsulin lispro 12 unit, 0.12 mL, Route: SUB-Q, Drug form: SOLN, TID-Before Meals, Dosing Weight 113.636, kg, PRN Blood Glucose Results, Start date: 11/29/19 2:13:00 CDT, Duration: 30 day, Stop date: 12/29/19 2:12:00 CDT, 0 Notes: (Same as: Humalog) Roll in palms of hands gently; Do not shake vigorously. WASTE: F/P - Black; E - Municipal Trash BinStable for 28 days at room temperature.Expires in days from Date Start Date: 11/29/19 Stop Date: 12/08/19 Status: Discontinuedinsulin lispro 15 unit, 0.15 mL, Route: SUB-Q, Drug form: SOLN, TID-Before Meals, Dosing Weight 113.636, kg, PRN Blood Glucose Results, Start date: 11/29/19 2:13:00 CDT, Duration: 30 day, Stop date: 12/29/19 2:12:00 CDT, 0 Notes: (Same as: Humalog) Roll in palms of hands gently; Do not shake vigorously. WASTE: F/P - Black; E - Municipal Trash BinStable for 28 days at room temperature.Expires in days from Date Start Date: 11/29/19 Stop Date: 12/08/19 Status: Discontinuedinsulin lispro 4 unit, 0.04 mL, Route: SUB-Q, Drug form: SOLN, Bedtime, Dosing Weight 113.636, kg, PRN Blood Glucose Results, Start date: 11/29/19 2:13:00 CDT, Duration: 30 day, Stop date: 12/29/19 2:12:00 CDT, 0 Notes: (Same as: Humalog) Roll in palms of hands gently; Do not shake vigorously. WASTE: F/P - Black; E - Municipal Trash BinStable for 28 days at room temperature.Expires in days from Date Start Date: 11/29/19 Stop Date: 12/08/19 Status: Discontinuedinsulin lispro 6 unit, 0.06 mL, Route: SUB-Q, Drug form: SOLN, Bedtime, Dosing Weight 113.636, kg, PRN Blood Glucose Results, Start date: 11/29/19 2:13:00 CDT, Duration: 30 day, Stop date: 12/29/19 2:12:00 CDT, 0 Notes: (Same as: Humalog) Roll in palms of hands gently; Do not shake vigorously. WASTE: F/P - Black; E - Municipal Trash BinStable for 28 days at room temperature.Expires in days from Date Start Date: 11/29/19 Stop Date: 12/08/19 Status: Discontinuedinsulin lispro 8 unit, 0.08 mL, Route: SUB-Q, Drug form: SOLN, Bedtime, Dosing Weight 113.636, kg, PRN Blood Glucose Results, Start date: 11/29/19 2:13:00 CDT, Duration: 30 day, Stop date: 12/29/19 2:12:00 CDT, 0 Notes: (Same as: Humalog) Roll in palms of hands gently; Do not shake vigorously. WASTE: F/P - Black; E - Municipal Trash BinStable for 28 days at room temperature.Expires in days from Date Start Date: 11/29/19 Stop Date: 12/08/19 Status: Discontinuedinsulin lispro 10 unit, 0.1 mL, Route: SUB-Q, Drug form: SOLN, Bedtime, Dosing Weight 113.636, kg, PRN Blood Glucose Results, Start date: 11/29/19 2:13:00 CDT, Duration: 30 day, Stop date: 12/29/19 2:12:00 CDT, 0 Notes: (Same as: Humalog) Roll in palms of hands gently; Do not shake vigorously. WASTE: F/P - Black; E - Municipal Trash BinStable for 28 days at room temperature.Expires in days from Date Start Date: 11/29/19 Stop Date: 12/08/19 Status: DiscontinuedLac-Hydrin 1 appl, Route: TOP, BID, Drug form: LOT, Start date: 11/29/19 17:00:00 CDT, Duration: 30 day, Stop date: 12/29/19 9:00:00 CDT, 0 Notes: (Same as: Ainhactin) Start Date: 11/29/19 Stop Date: 12/08/19 Status: DiscontinuedLactated Ringers IV 1,000 mL 1,000 mL, Rate: 75 ml/hr, Infuse over: 13.3 hr, Route: IV, Dosing Weight 113.636 kg, Total Volume: 1,000, Priority: Routine, Start date: 11/29/19 2:11:00 CDT, Duration: 30 day, Stop date: 12/29/19 2:10:00 CDT, 2.44, m2, 0 Start Date: 11/29/19 Stop Date: 12/06/19 Status: Discontinuedlactic acid topical 10% lotion 1 appl, Route: TOP, BID, Start date: 11/29/19 9:00:00 CDT, Duration: 30 day, Stop date: 12/28/19 17:00:00 CDT Start Date: 11/29/19 Stop Date: 11/29/19 Status: DeletedMaalox Advanced Regular Strength SUSP 30 mL, Route: PO, Drug Form: SUSP, Dosing Weight 113.636, kg, QID, PRN, Start date: 11/29/19 2:11:00CDT, Duration: 30 day, Stop date: 12/29/19 2:10:00 CDT, Indigestion, heartburn, 0 Notes: (aluminum hydroxide-magnesium hyd-simethicone 650-509-37pe/5ml 30 ml ud PABLO) Start Date: 11/29/19 Stop Date: 12/08/19 Status: Discontinuedmetoprolol succinate 25 mg oral capsule, extended release 25 mg = 1 cap, PO, Daily, # 30 cap, 0 Refill(s) Start Date: 12/08/19 Stop Date: 01/07/20 Status: Orderedmetoprolol tartrate 25 mg, 1 tab, Route: PO, Drug form: TAB, Q12H, Dosing Weight 111.818, kg, Start date: 11/30/19 9:00:00 CDT, Duration: 30 day, Stop date: 12/29/19 21:00:00 CDT, 0 Notes: (Same as: Lopressor) Start Date: 11/30/19 Stop Date: 12/08/19 Status: Discontinuedmetoprolol tartrate 25 mg oral tablet 25 mg = 1 tab, PO, Q12H, # 60 tab, 0 Refill(s) Start Date: 12/08/19 Stop Date: 12/08/19 Status: Discontinuedmorphine Sulfate 6 mg, 3 mL, Route: PO, Drug form: SOLN, Q6H, PRN Pain Score 4-6, Start date: 11/30/19 3:39:00 CDT, Duration: 30 day, Stop date: 12/30/19 3:38:00 CDT, 0 Notes: (Same as:MORPhine Sulfate) Start Date: 11/30/19 Stop Date: 12/08/19 Status: Discontinuedmorphine Sulfate 2 mg, 0.5 mL, Route: IVP, Drug form: SOLN, Q4H, Dosing Weight 113.636, kg, PRN Pain Score 4-6, Startdate: 11/29/19 2:11:00 CDT, Duration: 30 day, Stop date: 12/29/19 2:10:00 CDT, 0 Notes: (Same as:MORPhine Sulfate) Start Date: 11/29/19 Stop Date: 11/30/19 Status: DiscontinuedNIFEdipine 30 mg oral tablet, extended release 30 mg = 1 tab, PO, Daily, # 30 tab, 0 Refill(s) Start Date: 11/29/19 Stop Date: 12/08/19 Status: Discontinuedondansetron 4 mg, 2 mL, Route: IVP, Drug form: INJ, Q8H, Dosing Weight 113.636, kg, PRN Nausea & Vomiting, Start date: 11/29/19 2:11:00 CDT, Duration: 30 day, Stop date: 12/29/19 2:10:00 CDT, 0 Notes: (Same as: Melony) MEDICATION WASTE Product Size: 4 mgProduct Wasted: ___ mg Start Date: 11/29/19 Stop Date: 12/08/19 Status: Discontinuedrivaroxaban 20 mg oral tablet 20 mg = 1 tab, PO, QPM, For Deep Venous Thrombosis / Pulmonary Embolism, # 30 tab, 0 Refill(s) Start Date: 12/08/19 Stop Date: 01/07/20 Status: OrderedSaline Flush 0.9% 10 ml, Route: IVP, Drug Form: INJ, Dosing Weight 111.818, kg, Q12H, Start date: 12/07/19 21:00:00 CDT, Duration: 30 day, Stop date: 01/06/20 9:00:00 CDT, 0 Notes: Same as: BD Posiflush Sterile Start Date: 12/07/19 Stop Date: 12/08/19 Status: DiscontinuedSaline Flush 0.9% 10 ml, Route: IVP, Drug Form: INJ, Dosing Weight 111.818, kg, PRN, PRN Line Flush, Start date: 12/07/19 12:49:00 CDT, Duration: 30 day, Stop date: 01/06/20 12:48:00 CDT, 0 Notes: Same as: BD Posiflush Sterile Start Date: 12/07/19 Stop Date: 12/08/19 Status: Discontinuedtrazodone 50 mg, 1 tab, Route: PO, Drug form: TAB, Bedtime, Dosing Weight 113.636, kg, PRN Insomnia, Start date: 11/29/19 2:11:00 CDT, Duration: 30 day, Stop date: 12/29/19 2:10:00 CDT, 0 Notes: (Same As: Desyrel) Start Date: 11/29/19 Stop Date: 12/08/19 Status: DiscontinuedXarelto 20 mg, Route: PO, QPM, Dosing Weight 111.818, kg, Maintenance Dose; CrCl > = 15 mL/min, Start date: 11/29/19 17:00:00 CDT, Duration: 30 day, Stop date: 12/28/19 17:00:00 CDT, For Deep Venous Thrombosis / Pulmonary Embolism Start Date: 11/29/19 Stop Date: 11/29/19 Status: DiscontinuedXarelto 20 mg, 1 tab, Route: PO, Drug form: TAB, QPM, Dosing Weight 111.818, kg, Maintenance Dose; CrCl >= 15 mL/min, Start date: 11/30/19 17:00:00 CDT, Duration: 30 day, Stop date: 12/29/19 17:00:00 CDT, For Deep Venous Thrombosis / Pulmonary Embolism, 0 Notes: (Same as: Xarelto)Administer with food Start Date: 11/30/19 Stop Date: 12/08/19 Status: Discontinued Results Most recent to oldest 1 2 3 [Reference Range]: Procalcitonin Lvl 0.28 ng/mL [0.00-0.10 ng/mL] *HI* (11/29/19 4:43 AM) Neutrophils # [1.5-8.1 3.1 K/CMM 8.0 K/CMM 8.4 K/CMM K/CMM] (12/02/19 4:50 AM) (11/29/19 4:43 AM) *HI* (11/28/19 9:39 PM) Lymphocytes # [1.0-5.5 2.4 K/CMM 1.4 K/CMM 1.3 K/CMM K/CMM] (12/02/19 4:50 AM) (11/29/19 4:43 AM) (11/28/19 9:39 PM) Monocytes # [0.0-0.8 K/CMM] 0.9 K/CMM 0.8 K/CMM 0.7 K/CMM *HI* (11/29/19 4:43 AM) (11/28/19 9:39 PM ) (12/02/19 4:50 AM) Eosinophils # [0.0-0.5 0.2 K/CMM 0.3 K/CMM K/CMM] (12/02/19 4:50 AM) (11/29/19 4:43 AM) Basophils # [0.0-0.2 K/CMM] 0.1 K/CMM 0.1 K/CMM (12/02/19 4:50 AM) (11/28/19 9:39 PM) Large Plt [None Seen] Moderate Moderate *ABN* *ABN* (12/02/19 4:50 AM) (11/28/19 9:39 PM) BNP [<=100 pg/mL] 198 pg/mL *HI* (11/28/19 9:39 PM) Plt Morph [Normal] Normal (11/29/19 4:43 AM) Bili Indirect [0.0-1.0 0.5 mg/dL mg/dL] (11/28/19 9:39 PM) eGFR 52 mL/min/1.73m2 1 42 mL/min/1.73m2 2 24 mL/min/ 1.73m2 3 *NA* *NA* *NA* (12/02/19 4:50 AM) (11/30/19 6:25 AM) (11/29/19 4:43 AM) % Satur Fe [20-48 % (calc)] 34 % (calc) *NA* (11/29/19 10:19 AM) A/G Ratio [0.7-1.6] 0.8 0.7 (11/29/19 4:43 AM) (11/28/19 9:39 PM) Albumin Lvl [3.5-5.0 g/dL] 3.5 g/dL 3.6 g/dL (11/29/19 4:43 AM) (11/28/19 9:39 PM) Alk Phos [39-136 unit/L] 84 unit/L 81 unit/L (11/29/19 4:43 AM) (11/28/19 9:39 PM) ALT [0-65 unit/L] 34 unit/L 33 unit/L (11/29/19 4:43 AM) (11/28/19 9:39 PM) AGAP [10.0-20.0 mEq/L] 12.3 mEq/L 12.5 mEq/L 12.5 mEq/ L (12/02/19 4:50 AM) (11/30/19 6:25 AM) (11/29/19 4:43 AM) Anisocyte [None Seen] 1+ *ABN* (11/28/19 9:39 PM) AST [0-37 unit/L] 20 unit/L 24 unit/L (11/29/19 4:43 AM) (11/28/19 9:39 PM) B/C Ratio [6-25] 10 (11/29/19 4:43 AM) Bands [0.0-11.0 %] 0.0 % 3.0 % (11/29/19 4:43 AM) (11/28/19 9:39 PM) Basophils [0.0-1.0 %] 1.0 % 1.0 % (12/02/19 4:50 AM) (11/28/19 9:39 PM) BUN [7-22 mg/dL] 18 mg/dL 25 mg/dL 29 mg/dL (12/02/19 4:50 AM) *HI* *HI* (11/30/19 6:25 AM) (11/29/19 4:43 A M) Calcium Lvl [8.5-10.5 8.5 mg/dL 8.7 mg/dL 9.4 mg/dL mg/dL] (12/02/19 4:50 AM) (11/30/19 6:25 AM) (11/29/19 4:43 AM) Total CK [12-191 unit/L] 130 unit/L (11/28/19 9:39 PM) Chloride Lvl [95-109 mEq/L] 112 mEq/L 113 mEq/L 107 mEq/L *HI* *HI* (11/29/19 4:43 AM) (12/02/19 4:50 AM) (11/30/19 6:25 AM) CO2 [24-32 mEq/L] 26 mEq/L 24 mEq/L 26 mEq/L (12/02/19 4:50 AM) (11/30/19 6:25 AM) (11/29/19 4:43 AM) Creatinine Lvl [0.50-1.40 1.50 mg/dL 1.80 mg/dL 2.90 m g/dL mg/dL] *HI* *HI* *HI* (12/02/19 4:50 AM) (11/30/19 6:25 AM) (11/29/19 4:43 AM) Bili Direct [0.0-0.3 mg/dL] 0.2 mg/dL (11/28/19 9:39 PM) Elliptocyte [None Seen] Slight *ABN* (11/29/19 4:43 AM) Eosinophils [0.0-4.0 %] 2.9 % 3.0 % (12/02/19 4:50 AM) (11/29/19 4:43 AM) Globulin [2.7-4.2 g/dL] 4.5 g/dL 4.9 g/dL *HI* *HI* (11/29/19 4:43 AM) (11/28/19 9:39 PM) Glucose Lvl [70-99 mg/dL] 85 mg/dL 90 mg/dL 99 mg/ dL (12/02/19 4:50 AM) (11/30/19 6:25 AM) (11/29/19 4:43 AM) Hct [42.0-54.0 %] 36.3 % 39.4 % 39.8 % *LOW* *LOW* *LOW* (12/02/19 4:50 AM) (11/29/19 4:43 AM) (11/28/19 9:39 PM) Hgb [14.0-18.0 g/dL] 11.4 g/dL 12.2 g/dL 12.1 g/dL *LOW* *LOW* *LOW* (12/02/19 4:50 AM) (11/29/19 4:43 AM) (11/28/19 9:39 PM) Hypochrom [None Seen] 1+ 1+ 1+ (12/02/19 4:50 AM) (11/29/19 4:43 AM) (11/28/19 9:39 PM) INR [0.85-1.17] 1.11 (11/28/19 9:39 PM) Iron [50-180 mcg/dl] 73 mcg/dl 4 *NA* (11/29/19 10:19 AM) Potassium Lvl [3.5-5.1 4.3 mEq/L 4.5 mEq/L 4.5 mEq/L mEq/L] (12/02/19 4:50 AM) (11/30/19 6:25 AM) (11/29/19 4:43 AM) Lactic Acid Lvl [0.5-2.2 1.5 mMol/L mMol/L] (11/29/19 4:43 AM) Atypical Lymphs [<=0.0 %] 1.0 % 0.0 % *HI* (11/28/19 9:39 PM) (11/29/19 4:43 AM) Lymphocytes [20.0-40.0 %] 35.6 % 12.0 % 12.0 % (12/02/19 4:50 AM) *LOW* *LOW* (11/29/19 4:43 AM) (11/28/19 9:39 PM ) MCH [27.0-31.0 pg] 19.5 pg 19.2 pg 19.3 pg *LOW* *LOW* *LOW* (12/02/19 4:50 AM) (11/29/19 4:43 AM) (11/28/19 9:39 PM) MCHC [32.0-36.0 g/dL] 31.4 g/dL 31.0 g/dL 30.3 g/dL *LOW* *LOW* *LOW* (12/02/19 4:50 AM) (11/29/19 4:43 AM) (11/28/19 9:39 PM) MCV [80.0-94.0 fL] 62.0 fL 61.8 fL 63.8 fL *LOW* *LOW* *LOW* (12/02/19 4:50 AM) (11/29/19 4:43 AM) (11/28/19 9:39 PM) Magnesium Lvl [1.8-2.4 2.1 mg/dL 2.4 mg/dL mg/dL] (11/29/19 4:43 AM) (11/28/19 9:39 PM) Microcyte [None Seen] 3+ 3+ 2+ *NA* *ABN* *ABN* (12/02/19 4:50 AM) (11/29/19 4:43 AM) (11/28/19 9:39 PM) Monocytes [2.0-12.0 %] 13.0 % 8.0 % 7.0 % *HI* (11/29/19 4:43 AM) (11/28/19 9:39 PM ) (12/02/19 4:50 AM) MPV [7.4-10.4 fL] 9.0 fL 9.9 fL 9.4 fL (12/02/19 4:50 AM) (11/29/19 4:43 AM) (11/28/19 9:39 PM) Sodium Lvl [135-145 mEq/L] 146 mEq/L 145 mEq/L 141 m Eq/L *HI* (11/30/19 6:25 AM) (11/29/19 4:43 A M) (12/02/19 4:50 AM) Phosphorus [2.5-4.5 mg/dL] 4.3 mg/dL (11/29/19 4:43 AM) Platelet [133-450 K/CMM] 171 K/CMM 244 K/CMM 253 K/C MM (12/02/19 4:50 AM) (11/29/19 4:43 AM) (11/28/19 9:39 PM) Polychrom [None Seen] Moderate Moderate *ABN* *ABN* (11/29/19 4:43 AM) (11/28/19 9:39 PM) Segs [45.0-75.0 %] 47.5 % 76.0 % 77.0 % (12/02/19 4:50 AM) *HI* *HI* (11/29/19 4:43 AM) (11/28/19 9:39 PM ) Total Protein [6.4-8.4 8.0 g/dL 8.5 g/dL g/dL] (11/29/19 4:43 AM) *HI* (11/28/19 9:39 PM) PT [12.0-14.7 seconds] 14.3 seconds (11/28/19 9:39 PM) PTT [22.9-35.8 seconds] 28.6 seconds (11/28/19 9:39 PM) Coronavirus (COVID-19) DYLAN Not Detected Not Detected Detec casey 5 [Not Detected] *NA* *NA* *ABN* (12/05/19 1:37 PM) (12/04/19 12:53 PM) (11/29/19 3:1 6 PM) RBC [4.70-6.10 M/CMM] 5.85 M/CMM 6.37 M/CMM 6.24 M/CMM (12/02/19 4:50 AM) *HI* *HI* (11/29/19 4:43 AM) (11/28/19 9:39 PM ) RDW [11.5-14.5 %] 16.3 % 16.4 % 16.5 % *HI* *HI* *HI* (12/02/19 4:50 AM) (11/29/19 4:43 AM) (11/28/19 9:39 PM) Bili Total [0.2-1.3 mg/dL] 0.7 mg/dL 0.7 mg/dL (11/29/19 4:43 AM) (11/28/19 9:39 PM) Target Cell [None Seen] Moderate Moderate Moderate *ABN* *ABN* *ABN* (12/02/19 4:50 AM) (11/29/19 4:43 AM) (11/28/19 9:39 PM) TIBC [250-425 mcg/dl] 216 mcg/dl *LOW* (11/29/19 10:19 AM) Troponin-I [0.00-0.40 0.04 ng/mL 0.04 ng/mL 0.04 ng/mL ng/mL] (11/29/19 8:13 AM) (11/29/19 4:43 AM) (11/28/19 9:39 P M) UA Bili [Negative] Negative *NA* (11/29/19 9:58 AM) UA Blood [Negative] Small *ABN* (11/29/19 9:58 AM) UA Color Yellow *NA* (11/29/19 9:58 AM) UA Glucose [Negative mg/dL] Negative mg/dL *NA* (11/29/19 9:58 AM) UA Hyal Cast [0-2 /LPF] 9 /LPF *HI* (11/29/19 9:58 AM) UA Ketones [Negative mg/dL] Negative mg/dL *NA* (11/29/19 9:58 AM) UA Leuk Est [Negative] Negative (11/29/19 9:58 AM) UA Mucus [None Seen /LPF] Few /LPF *NA* (11/29/19 9:58 AM) UA Nitrite [Negative] Negative (11/29/19 9:58 AM) UA pH [5.0-8.0] 5.0 (11/29/19 9:58 AM) UA Protein [Negative mg/dL] Negative mg/dL (11/29/19 9:58 AM) UA RBC [0-2 /HPF] 2 /HPF (11/29/19 9:58 AM) UA Spec Grav [<=1.030] 1.015 (11/29/19 9:58 AM) UA Sq Epi [Few /LPF] Occasional /LPF *NA* (11/29/19 9:58 AM) UA Turbidity [Clear] Slight *ABN* (11/29/19 9:58 AM) UA Urobilinogen [0.1-1.0 <=1.0 mg/dL mg/dL] *NA* (11/29/19 9:58 AM) WBC [3.7-10.4 K/CMM] 6.6 K/CMM 10.5 K/CMM 10.5 K/CMM (12/02/19 4:50 AM) *HI* *HI* (11/29/19 4:43 AM) (11/28/19 9:39 PM ) 1Result Comment: The eGFR is calculated using the CKD-EPI formula. In most young, healthy individualsthe eGFR will be >90 mL/min/1.73m2. The eGFR declines with age. An eGFR of 60-89 may be normal insome populations, particularly the elderly, for whom the CKD-EPI formula has not been extensively validated. Use of the eGFR is not recommended in the following populations: Individuals with unstable creatinine concentrations, including patients and those with serious co-morbid conditions. Patients with extremes in muscle mass or diet. The data above are obtained from the National Kid[employer] Disease Education Program (NKDEP) which additionally recommends that when the eGFR is used in patients with extremes of body mass index for purposesof drug dosing, the eGFR should be multiplied by the estimated BMI.2Result Comment: The eGFR is calculated using the CKD-EPI formula. In most young, healthy individualsthe eGFR will be >90 mL/min/1.73m2. The eGFR declines with age. An eGFR of 60-89 may be normal insome populations, particularly the elderly, for whom the CKD-EPI formula has not been extensively validated. Use of the eGFR is not recommended in the following populations: Individuals with unstable creatinine concentrations, including patients and those with serious co-morbid conditions. Patients with extremes in muscle mass or diet. The data above are obtained from the National Kid[employer] Disease Education Program (NKDEP) which additionally recommends that when the eGFR is used in patients with extremes of body mass index for purposesof drug dosing, the eGFR should be multiplied by the estimated BMI.3Result Comment: The eGFR is calculated using the CKD-EPI formula. In most young, healthy individualsthe eGFR will be >90 mL/min/1.73m2. The eGFR declines with age. An eGFR of 60-89 may be normal insome populations, particularly the elderly, for whom the CKD-EPI formula has not been extensively validated. Use of the eGFR is not recommended in the following populations: Individuals with unstable creatinine concentrations, including patients and those with serious co-morbid conditions. Patients with extremes in muscle mass or diet. The data above are obtained from the National Kid[employer] Disease Education Program (NKDEP) which additionally recommends that when the eGFR is used in patients with extremes of body mass index for purposesof drug dosing, the eGFR should be multiplied by the estimated BMI.4Result Comment: Lab test performed by: [facility] [address] [id number] STIVEN ZAMORA MD5Result Comment: "Significant Findings called to [facility] at 11/30/2019 07:29_ by WF_. Read Back OK." Immunizations No data available for this section Procedures No data available for this section Social History Social History Type Response Alcohol Past Smoking Status Never smoker; Exposure to To bacco Smoke None; Cigarette Smoking Last 365 Days No; Reg Smoking Cessation Counseling No entered on: 11/29/19 Assessment and Plan Extracted from: Title: Discharge Summary * Author: Dameon Deluna DO Date: 11/20 12/09 Discharge Information Admit date: November 29, 2019 Discharge date: December 08, 2019 Total time spent on discharge: 33 minute s Discharge diagnoses: SVT HTN Covid-19 Moderate Chronic diastolic CHF Acute kidney injury Hx of DVT with IVC filter Diabetes mellitus type 2 Bilateral lower extremity chronic venous stasis ulcers dermatitis Consulting physicians: Em Marie MD Office: [facility] : [id number] Service: Cardiology Garrett Suero MD Office: [facility]: [id number] Service: Cardiology, Medicine Procedures: none History and [...] SVT. Patient received diagnoses which revealed prolongated NM interval and normalization to sinus rhythm. EP [...] management and recommended for continue beta-eladio w too sierra and Nazrelto, will follow- up outpatient EP and also of note, patient had negative cover testing x2. Condition: Stable Disposition: Home Medications: Refer to the discharge med rec Instructions: Activity: No restrictions. Follow-up: Cardiology and EP in 4 weeks, PCP 1 week Extracted from: Title: EP Progress Note Author: Vicky Navarrete NP Date: 0 Impression and Plan This is a 74 [...] - s/p ablation for AVNRT. remains in [facility] overnight. -okay to discharge from EP standpoint. F ollow up in EP clinic in 4 weeks. Extracted from: Title: History and Physical Author: Steve Koch MD Date: 11/28/19 This is a 74-year-old man withhigh blo od pressure, type 2 diabetes, chronic kidney disease stage III,chronic systolic CHF,chronicvenous stasisof both legswho is admitted to inpatient status secondary toacute on chronic renal gilbert lurelikely due to acutetubular necrosis,supraventricular tachycardia,and unexplained leukocytosis. We will manage on telemetry under contin uous cardiac monitoring. Trend cardiac enzymes troponin every 4x2. Send blood sputum and urine to the lab for analysis and culture. Order procalcitonin lact ic acid. Order CT scan of the chest wi thout contrast. Bolus 1 L normal saline. Continue with lactated Ringer's IV solution at 75 cc an hour. Control pain with morphine sulfate 2 mg IV every 4 ho urs PRN. Control nausea with Zofran 4 mg IV every 6 hours PRN. Order CBC complete metabolic panel magnesium level. Consult social servicesfor additional recommendations regarding homelessness. Begin Accu-Cheks before meals and at be dtime cover with high-dose insulin sliding scale. Resume other home medications as soon as a full list is brought for medication reconciliation. Initiate DVT prophylaxis GI prophylaxis. Additional recommendations will depend on results of the diagnostics. Acute on chronic renal failure(N17.9), Acute renal failure (ARF)(N17.9) Ordered: Admit/Condition, 11/29/19 2:11:00 Sandor VELAZCO tatus: Inpatient, Telemetry Capable Location, Expected LOS: 3 or Greater Midnights, Steve Koch MD, Admit MD Review/Approve Yes, Isolation: Contact, D roplet, Acute on chronic renal failure | SVT (supraventricular tac... Admit/Condition, 11/28/19 22:54:00 CDT, Status: Out [...] Acute on chronic renal failure | SVT (supraventricular tac... Chronic venous stasis dermatitis of bot h lower extremities(I87.2) Ordered: Admit/Condition, 11/29/19 2:11:00 CDT, S tatus: Inpatient, Telemetry Capable Location, Expected LOS: 3 or Greater Midnights, Steve Koch MD, Chato CAMARGO Review/Approve Yes, Isolation: Grace Antony Acute on chronic renal failure | SVT (supraventricular tac... SVT (supraventricular tachycardia)(I4 7.1) Ordered: Admit/Condition, 11/29/19 2:11:00 CDT, S tatus: Inpatient, Telemetry Capable Location, Expected LOS: 3 or Greater Midnights, Steve Koch MD, Chato CAMARGO Review/Approve Yes, Isolation: Grace Antony Acute on chronic renal failure | SVT (supraventricular tac... Admit/Condition, 11/28/19 22:54:00 CDT, Status: Out Patient with Observation Services, Telemetry Capable Location, Expected LOS: 1 Midnight, Steve Koch MD, Chato CAMARGO Review/Approve Yes, SVT (supraventricular tachycardia) | Acute renal failure (ARF) Uncontrolled diabetes mellitus(E11.65 ) Ordered: Admit/Condition, 11/29/19 2:11:00 CDT, S tatus: Inpatient, Telemetry Capable Location, Expected LOS: 3 or Greater Midnights, Ojeih, Steve Garcia MD, Admit MD Review/Approve Yes, Isolation: Contact, Grace maldonado, Acute on chronic renal failure | SVT (supraventricular tac...
--- OUTSIDE RECORDS SUMMARY | 2020-02-26 10:29 | XMS REPORT | Summary of Care ---
:[address] [facility] ospital Address [facility] [place], [place] [address]- Encounter HQ Omayra(FIN) [id number] Date(s): 11/28/[address] [address]- Encounter Diagnosis Supraventricular tachycardia (Final) - Discharge Disposition: ED Admitted Attending Physician: Steve Koch MD Admitting Physician: Steve Koch MD Vital Signs Most recent to oldest [Reference 1 2 3 Range]: Height 185.42 cm 185.42 cm (11/29/19 3:57 AM) (11/28/19 9:04 PM) Temperature Oral [96.4-99.1 DegF] 98.2 DegF (11/28/19 9:04 PM) Blood Pressure [90-140/60-90 108/94 mmHg 110/68 mmHg 129 /78 mmHg mmHg] (11/29/19 11:50 PM) (11/29/19 8:00 PM) (11/29/19 5:41 PM) Respiratory Rate [14-20 BRMIN] 18 BRMIN 18 BRMIN 1 8 BRMIN (11/29/19 11:50 PM) (11/29/19 8:00 PM) (11/29/19 4:05 PM) Peripheral Pulse Rate [60-100 90 bpm 93 bpm 99 bpm bpm] (11/29/19 11:50 PM) (11/29/19 8:00 PM) (11/29/19 5:41 PM) Weight 111.818 kg 113.636 kg (11/29/19 3:57 AM) (11/28/19 9:04 PM) Body Mass Index 32.52 m2 33.05 m2 (11/29/19 3:57 AM) (11/28/19 9:04 PM) Problem List Condition Effective Dates Status Health Status Informant Diabetes mellitus(Confirmed) Resolved Gout(Confirmed) Resolved Hypertension(Confirmed) Resolved Neuropathy(Confirmed) Resolved Allergies, Adverse Reactions, Alerts No Known Medication Allergies Medications acetaminophen 650 mg, 2 tab, Route: PO, Drug form: TAB, Q4H, Dosing Weight 113.636, kg, PRN, Start date: 11/29/19 2:11:00 CDT, Duration: 30 day, Stop date: 12/29/19 2:10:00 CDT, For Temp > 100.4 F, headache, 0 Notes: Do not exceed 4 gm/day. (Same as: Tylenol) Start Date: 11/29/19 Stop Date: 12/29/19 Status: Orderedadenosine 6 mg, 2 mL, Route: IVP, Drug [...] As: Coreg) Start Date: 11/29/19 Stop Date: 12/29/19 Status: OrderedDextrose 50% Syringe (D50W) 12.5 gm, 25 mL, Route: IVP, Drug Form: INJ, Dosing Weight 113.636, kg, PRN, PRN Blood Glucose Results, Start date: 11/29/19 2:13:00 CDT, Duration: 30 day, Stop date: 12/29/19 2:12:00 CDT, 0 Start Date: 11/29/19 Stop Date: 12/29/19 Status: OrderedDextrose 50% Syringe (D50W) 25 gm, 50 mL, Route: IVP, Drug Form: INJ, Dosing Weight 113.636, kg, PRN, PRN Blood Glucose Results,Start date: 11/29/19 2:13:00 CDT, Duration: 30 day, Stop date: 12/29/19 2:12:00 CDT, 0 Start Date: 11/29/19 Stop Date: 12/29/19 Status: Ordereddocusate 100 mg, 1 cap, Route: PO, Drug form: CAP, BID, Dosing Weight 113.636, kg, PRN as needed for constipation, Start date: 11/29/19 2:11:00 CDT, Duration: 30 day, Stop date: 12/29/19 2:10:00 CDT, 0 Notes: (Same as: Colace) (Do Not Crush) Start Date: 11/29/19 Stop Date: 12/29/19 Status: OrderedDuoNeb inhalation solution 3 ml, Route: NEB, Drug Form: SOLN, Dosing Weight 113.636, kg, RQ6H, PRN, Start date: 11/29/19 2:11:00 CDT, Duration: 30 day, Stop date: 12/29/19 2:10:00 CDT, sob, wheezing, 0 Notes: (Same as: Duoneb) Start Date: 11/29/19 Stop Date: 12/29/19 Status: OrderedglipiZIDE 5 mg oral tablet 5 mg = 1 tab, PO, BID-Before Meals, # 30 tab, 1 Refill(s) Start Date: 11/29/19 Status: Suspendedglucagon 1 mg, Route: IM, Drug form: PDR/INJ, PRN, Dosing Weight 113.636, kg, PRN Blood Glucose Results, Start date: 11/29/19 2:13:00 CDT, Duration: 30 day, Stop date: 12/29/19 2:12:00 CDT, 0 Start Date: 11/29/19 Stop Date: 12/29/19 Status: Orderedheparin 5,000 unit, 1 mL, Route: SUB-Q, Drug [...] 5 minutes Start Date: 11/29/19 Stop Date: 12/29/19 Status: Orderedinsulin lispro 3 unit, 0.03 mL, Route: SUB-Q, [...] from Date Start Date: 11/29/19 Stop Date: 12/29/19 Status: Orderedinsulin lispro 6 unit, 0.06 mL, Route: SUB-Q, [...] from Date Start Date: 11/29/19 Stop Date: 12/29/19 Status: Orderedinsulin lispro 9 unit, 0.09 mL, Route: SUB-Q, [...] from Date Start Date: 11/29/19 Stop Date: 12/29/19 Status: Orderedinsulin lispro 12 unit, 0.12 mL, Route: SUB-Q, [...] from Date Start Date: 11/29/19 Stop Date: 12/29/19 Status: Orderedinsulin lispro 15 unit, 0.15 mL, Route: SUB-Q, [...] from Date Start Date: 11/29/19 Stop Date: 12/29/19 Status: Orderedinsulin lispro 4 unit, 0.04 mL, Route: SUB-Q, [...] from Date Start Date: 11/29/19 Stop Date: 12/29/19 Status: Orderedinsulin lispro 6 unit, 0.06 mL, Route: SUB-Q, [...] from Date Start Date: 11/29/19 Stop Date: 12/29/19 Status: Orderedinsulin lispro 8 unit, 0.08 mL, Route: SUB-Q, [...] from Date Start Date: 11/29/19 Stop Date: 12/29/19 Status: Orderedinsulin lispro 10 unit, 0.1 mL, Route: SUB-Q, [...] from Date Start Date: 11/29/19 Stop Date: 12/29/19 Status: OrderedLac-Hydrin 1 appl, Route: TOP, BID, Drug form: LOT, Start date: 11/29/19 17:00:00 CDT, Duration: 30 day, Stop date: 12/29/19 9:00:00 CDT, 0 Notes: (Same as: Ainhactin) Start Date: 11/29/19 Stop Date: 12/29/19 Status: OrderedLactated Ringers IV 1,000 mL 1,000 mL, Rate: 75 ml/hr, Infuse over: 13.3 hr, Route: IV, Dosing Weight 113.636 kg, Total Volume: 1,000, Priority: Routine, Start date: 11/29/19 2:11:00 CDT, Duration: 30 day, Stop date: 12/29/19 2:10:00 CDT, 2.44, m2, 0 Start Date: 11/29/19 Stop Date: 12/29/19 Status: Orderedlactic acid topical 10% lotion 1 appl, Route: [...] Indigestion, heartburn, 0 Notes: (aluminum hydroxide-magnesium hyd-simethicone [phone]/5ml 30 ml ud PABLO) Start Date: 11/29/19 Stop Date: 12/29/19 Status: Orderedmorphine Sulfate 6 mg, 3 mL, Route: PO, Drug form: SOLN, Q6H, PRN Pain Score 4-6, Start date: 11/30/19 3:39:00 CDT, Duration: 30 day, Stop date: 12/30/19 3:38:00 CDT, 0 Notes: (Same as:MORPhine Sulfate) Start Date: 11/30/19 Stop Date: 12/30/19 Status: Orderedmorphine Sulfate 2 mg, 0.5 mL, Route: IVP, [...] 30 tab, 0 Refill(s) Start Date: 11/29/19 Status: Suspendedondansetron 4 mg, 2 mL, Route: IVP, Drug form: INJ, Q8H, Dosing Weight 113.636, kg, PRN Nausea & Vomiting, Start date: 11/29/19 2:11:00 CDT, Duration: 30 day, Stop date: 12/29/19 2:10:00 CDT, 0 Notes: (Same as: Zofran) MEDICATION WASTE Product Size: 4 mgProduct Wasted: ___ mg Start Date: 11/29/19 Stop Date: 12/29/19 Status: Orderedtrazodone 50 mg, 1 tab, Route: PO, Drug form: TAB, Bedtime, Dosing Weight 113.636, kg, PRN Insomnia, Start date: 11/29/19 2:11:00 CDT, Duration: 30 day, Stop date: 12/29/19 2:10:00 CDT, 0 Notes: (Same As: Desyrel) Start Date: 11/29/19 Stop Date: 12/29/19 Status: OrderedXarelto 20 mg, Route: PO, QPM, Dosing Weight 111.818, kg, Maintenance Dose; CrCl > = 15 mL/min, Start date: 11/29/19 17:00:00 CDT, Duration: 30 day, Stop date: 12/28/19 17:00:00 CDT, For Deep Venous Thrombosis / Pulmonary Embolism Start Date: 11/29/19 Stop Date: 11/29/19 Status: Discontinued Results Most recent to oldest 1 2 3 [Reference Range]: Procalcitonin Lvl [0.00-0.10 0.28 ng/mL ng/mL] *HI* (11/29/19 4:43 AM) Neutrophils # [1.5-8.1 K/CMM] 8.0 K/CMM 8.4 K/CMM (11/29/19 4:43 AM) *HI* (11/28/19 9:39 PM) Lymphocytes # [1.0-5.5 K/CMM] 1.4 K/CMM 1.3 K/CMM (11/29/19 4:43 AM) (11/28/19 9:39 PM) Monocytes # [0.0-0.8 K/CMM] 0.8 K/CMM 0.7 K/CMM (11/29/19 4:43 AM) (11/28/19 9:39 PM) Eosinophils # [0.0-0.5 K/CMM] 0.3 K/CMM (11/29/19 4:43 AM) Basophils # [0.0-0.2 K/CMM] 0.1 K/CMM (11/28/19 9:39 PM) Large Plt [None Seen] Moderate *ABN* (11/28/19 9:39 PM) BNP [<=100 pg/mL] 198 pg/mL *HI* (11/28/19 9:39 PM) Plt Morph [Normal] Normal (11/29/19 4:43 AM) Bili Indirect [0.0-1.0 mg/dL] 0.5 mg/dL (11/28/19 9:39 PM) eGFR 24 mL/min/1.73m2 1 19 mL/min/1.73m2 2 *NA* *NA* (11/29/19 4:43 AM) (11/28/19:39 PM) A/G Ratio [0.7-1.6] 0.8 0.7 (11/29/19 4:43 AM) (11/28/19:39 PM) Albumin Lvl [3.5-5.0 g/dL] 3.5 g/dL 3.6 g/dL (11/29/19 4:43 AM) (11/28/19 9:39 PM) Alk Phos [39-136 unit/L] 84 unit/L 81 unit/L (11/29/19 4:43 AM) (11/28/19 9:39 PM) ALT [0-65 unit/L] 34 unit/L 33 unit/L (11/29/19 4:43 AM) (11/28/19 9:39 PM) AGAP [10.0-20.0 mEq/L] 12.5 mEq/L 12.0 mEq/L (11/29/19 4:43 AM) (11/28/19:39 PM) Anisocyte [None Seen] 1+ *ABN* (11/28/19:39 PM) AST [0-37 unit/L] 20 unit/L 24 unit/L (11/29/19 4:43 AM) (11/28/19 9:39 PM) B/C Ratio [6-25] 10 (11/29/19 4:43 AM) Bands [0.0-11.0 %] 0.0 % 3.0 % (11/29/19 4:43 AM) (11/28/19 9:39 PM) Basophils [0.0-1.0 %] 1.0 % (11/28/19:39 PM) BUN [7-22 mg/dL] 29 mg/dL 26 mg/dL *HI* *HI* (11/29/19 4:43 AM) (11/28/19:39 PM) Calcium Lvl [8.5-10.5 mg/dL] 9.4 mg/dL 10.4 mg/dL (11/29/19 4:43 AM) (11/28/19 9:39 PM) Total CK [12-191 unit/L] 130 unit/L (11/28/19 9:39 PM) Chloride Lvl [95-109 mEq/L] 107 mEq/L 111 mEq/L (11/29/19 4:43 AM) *HI* (11/28/19 9:39 PM) CO2 [24-32 mEq/L] 26 mEq/L 26 mEq/L (11/29/19 4:43 AM) (11/28/19 9:39 PM) Creatinine Lvl [0.50-1.40 2.90 mg/dL 3.40 mg/dL mg/dL] *HI* *HI* (11/29/19 4:43 AM) (11/28/19 9:39 PM) Bili Direct [0.0-0.3 mg/dL] 0.2 mg/dL (11/28/19 9:39 PM) Elliptocyte [None Seen] Slight *ABN* (11/29/19 4:43 AM) Eosinophils [0.0-4.0 %] 3.0 % (11/29/19 4:43 AM) Globulin [2.7-4.2 g/dL] 4.5 g/dL 4.9 g/dL *HI* *HI* (11/29/19 4:43 AM) (11/28/19 9:39 PM) Glucose Lvl [70-99 mg/dL] 99 mg/dL 97 mg/dL (11/29/19 4:43 AM) (11/28/19:39 PM) Hct [42.0-54.0 %] 39.4 % 39.8 % *LOW* *LOW* (11/29/19 4:43 AM) (11/28/19 9:39 PM) Hgb [14.0-18.0 g/dL] 12.2 g/dL 12.1 g/dL *LOW* *LOW* (11/29/19 4:43 AM) (11/28/19 9:39 PM) Hypochrom [None Seen] 1+ 1+ (11/29/19 4:43 AM) (11/28/19 9:39 PM) INR [0.85-1.17] 1.11 (11/28/19 9:39 PM) Potassium Lvl [3.5-5.1 mEq/L] 4.5 mEq/L 4.0 mEq/L (11/29/19 4:43 AM) (11/28/19 9:39 PM) Lactic Acid Lvl [0.5-2.2 1.5 mMol/L mMol/L] (11/29/19 4:43 AM) Atypical Lymphs [<=0.0 %] 1.0 % 0.0 % *HI* (11/28/19 9:39 PM) (11/29/19 4:43 AM) Lymphocytes [20.0-40.0 %] 12.0 % 12.0 % *LOW* *LOW* (11/29/19 4:43 AM) (11/28/19 9:39 PM) MCH [27.0-31.0 pg] 19.2 pg 19.3 pg *LOW* *LOW* (11/29/19 4:43 AM) (11/28/19 9:39 PM) MCHC [32.0-36.0 g/dL] 31.0 g/dL 30.3 g/dL *LOW* *LOW* (11/29/19 4:43 AM) (11/28/19 9:39 PM) MCV [80.0-94.0 fL] 61.8 fL 63.8 fL *LOW* *LOW* (11/29/19 4:43 AM) (11/28/19 9:39 PM) Magnesium Lvl [1.8-2.4 mg/dL] 2.1 mg/dL 2.4 mg/dL (11/29/19 4:43 AM) (11/28/19 9:39 PM) Microcyte [None Seen] 3+ 2+ *ABN* *ABN* (11/29/19 4:43 AM) (11/28/19 9:39 PM) Monocytes [2.0-12.0 %] 8.0 % 7.0 % (11/29/19 4:43 AM) (11/28/19 9:39 PM) MPV [7.4-10.4 fL] 9.9 fL 9.4 fL (11/29/19 4:43 AM) (11/28/19 9:39 PM) Sodium Lvl [135-145 mEq/L] 141 mEq/L 145 mEq/L (11/29/19 4:43 AM) (11/28/19 9:39 PM) Phosphorus [2.5-4.5 mg/dL] 4.3 mg/dL (11/29/19 4:43 AM) Platelet [133-450 K/CMM] 244 K/CMM 253 K/CMM (11/29/19 4:43 AM) (11/28/19 9:39 PM) Polychrom [None Seen] Moderate Moderate *ABN* *ABN* (11/29/19 4:43 AM) (11/28/19 9:39 PM) Segs [45.0-75.0 %] 76.0 % 77.0 % *HI* *HI* (11/29/19 4:43 AM) (11/28/19 9:39 PM) Total Protein [6.4-8.4 g/dL] 8.0 g/dL 8.5 g/dL (11/29/19 4:43 AM) *HI* (11/28/19 9:39 PM) PT [12.0-14.7 seconds] 14.3 seconds (11/28/19 9:39 PM) PTT [22.9-35.8 seconds] 28.6 seconds (11/28/19 9:39 PM) Coronavirus (COVID-19) DYLAN Detected Not Detected [Not Detected] *ABN* (11/29/19 12:59 AM) (11/29/19 3:16 PM) RBC [4.70-6.10 M/CMM] 6.37 M/CMM 6.24 M/CMM *HI* *HI* (11/29/19 4:43 AM) (11/28/19 9:39 PM) RDW [11.5-14.5 %] 16.4 % 16.5 % *HI* *HI* (11/29/19 4:43 AM) (11/28/19 9:39 PM) Bili Total [0.2-1.3 mg/dL] 0.7 mg/dL 0.7 mg/dL (11/29/19 4:43 AM) (11/28/19 9:39 PM) Target Cell [None Seen] Moderate Moderate *ABN* *ABN* (11/29/19 4:43 AM) (11/28/19 9:39 PM) Troponin-I [0.00-0.40 ng/mL] 0.04 ng/mL 0.04 ng/mL 0.0 4 ng/mL (11/29/19 8:13 AM) (11/29/19 4:43 AM) (11/28/19 [...] *NA* (11/29/19 9:58 AM) WBC [3.7-10.4 K/CMM] 10.5 K/CMM 10.5 K/CMM *HI* *HI* (11/29/19 4:43 AM) (11/28/19 9:39 PM) 1Result Comment: The eGFR is calculated using [...] should be multiplied by the estimated BMI. Immunizations No data available for this section Procedures No data available for this section Social History Social History Type Response Alcohol Past Smoking Status Never smoker; Exposure to To bacco Smoke None; Cigarette Smoking Last 365 Days No; Reg Smoking Cessation Counseling No entered on: 11/29/19 Assessment and Plan Extracted from: Title: DRILLING SUPERINTENDENT Note Author: Ross Knight MD Date: 11/29/19 DRILLING SUPERINTENDENT called at 5:38pm for chest pain and tachycardia. Twelve-lead EKG shows patient is in supraventricular tachycardia. 6 mg of adenosine was given patient went into sinus rhythm with rates in the 90s. His chest pain resolved. Plan. We will continue to monitor closely. Extracted from: Title: History and Physical Author: [...] renal failure (ARF)(N17.9) Ordered: Admit/Condition, 11/29/19 2:11:00 CDT, S tatus: [...] Steve Koch MD, it Review/Approve Yes, Isolation: Grace Antony, Acute on chronic renal failure | SVT (supraventricular tac... SVT (supraventricular tachycardia)(I4 7.1) Ordered: Admit/Condition, 11/29/19 2:11:00 CDT, S tatus: Inpatient, Telemetry Capable Location, Expected LOS: 3 or Greater Midnights, Steve Koch MD, it Review/Approve Yes, Isolation: Grace Antony, Acute on [...] on chronic renal failure | SVT (supraventricular tac..."
--- OUTSIDE RECORDS SUMMARY | 2020-02-26 10:29 | XMS REPORT | Summary of Care ---
:1945 Author Organization [facility] ospital Address [facility] [place], [place] [address]- Encounter HQ Omayra(FIN) [id number] Date(s): 11/28/[address] [address]- Encounter Diagnosis Supraventricular tachycardia (Final) - Discharge [...] Indigestion, heartburn, 0 Notes: (aluminum hydroxide-magnesium hyd-simethicone [phone]/5ml 30 ml ud PABLO) Start Date: 11/29/19 [...] 11/29/19 Assessment and Plan Extracted from: Title: SULFIDE HEAD OPERATOR Note Author: Ross Knight MD Date: 11/29/19 SULFIDE HEAD OPERATOR called at 5:38pm for chest pain and [...]
--- OUTSIDE RECORDS SUMMARY | 2020-02-26 10:29 | XMS REPORT | Summary of Care ---
:1945 Author Organization [facility] ospital Address [address] [place] [address]- Encounter HQ Omayra(FIN) [id number] Date(s): 11/28/[address] [address]- Encounter Diagnosis Supraventricular tachycardia (Final) - Discharge Disposition: ED Admitted Attending Physician: Steve Koch MD Admitting Physician: Steve Koch MD Vital Signs Most recent to oldest 1 2 3 [Reference Range]: Height 185.42 cm 185.42 cm (11/29/19 3:57 AM) (11/28/19 9:04 PM) Temperature Oral [96.4-99.1 97.9 DegF 98.4 DegF 97.5 DegF DegF] (12/06/19 11:58 PM) (12/06/19 7:46 PM) (12/06/19 2: 00 PM) Blood Pressure [90-140/60-90 156/83 mmHg 150/76 mmHg 151 /76 mmHg mmHg] *HI* *HI* *HI* (12/06/19 11:58 PM) (12/06/19 7:46 PM) (12/06/19 4: 00 PM) Respiratory Rate [14-20 BRMIN] 18 BRMIN 17 BRMIN 1 6 BRMIN (12/06/19 11:58 PM) (12/06/19 7:46 PM) (12/06/19 4: 00 PM) Peripheral Pulse Rate [60-100 58 bpm 59 bpm 54 bpm bpm] *LOW* *LOW* *LOW* (12/06/19 11:58 PM) (12/06/19 7:46 PM) (12/06/19 4: 00 PM) Weight 111.818 kg 113.636 kg (11/29/19 [...] Indigestion, heartburn, 0 Notes: (aluminum hydroxide-magnesium hyd-simethicone [phone]/5ml 30 ml ud PABLO) Start Date: 11/29/19 Stop Date: 12/29/19 Status: Orderedmetoprolol tartrate 25 mg, 1 tab, Route: PO, Drug form: TAB, Q12H, Dosing Weight 111.818, kg, Start date: 11/30/19 9:00:00 CDT, Duration: 30 day, Stop date: 12/29/19 21:00:00 CDT, 0 Notes: (Same as: Lopressor) Start Date: 11/30/19 Stop Date: 12/29/19 Status: Orderedmorphine Sulfate 6 [...] with food Start Date: 11/30/19 Stop Date: 12/29/19 Status: Ordered Results Most recent to oldest 1 2 [...] 31.0 g/dL 30.3 g/dL *LOW* *LOW* *LOW* (8/12/20 4:50 AM) (11/29/19 4:43 AM) (11/28/19 9:39 [...] estimated BMI.4Result Comment: Lab test performed by: [facility] [address] [id number] STIVEN ZAMORA MD5Result Comment: "Significant Findings called [...] 11/29/19 Assessment and Plan Extracted from: Title: Progress Note Author: South Gant MD Date: 74-year-old male with history of hypertension, diabetes mellitus type 2, chronic systolic CHF with unknown ejection fraction, CKD stage III, chronic venous stasis bilateral lower extremities cam e to the hospital as he was short of tj ath. Patient was noted to have heart rate of 160s. EKG showed SVT. Patient received diagnoses which revealed prolongated LA interval and normalization to si nus rhythm. 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 Patient was noted to have CLARITZA with creatinine of 3.40. Patient started on IV fluids. Creatinine slowly improving. EP suggeste d patient undergo ablation however initi ally refused and then requested to go ahead on 12/01/2019 Acute on chronic renal failure(N17. 9), Acute renal failure (ARF)(N17.9) Chronic systolic CHF (congestive heart failure)(I50.22) Chronic venous stasis dermatitis of louie th lower extremities(I87.2) SVT (supraventricular tachycardia)(I 47.1) Uncontrolled diabetes mellitus(E11.6 5) Plan: COVID-19 testing done x2 is negative. Plan for ablation AM. N.p.o. after midnight. Continue metoprolol and Xarelto. Patient can be moved out of the COVID u nit Xarelto Possible DC in the next 1 to 2 days a fter ablation Extracted from: Title: History and Physical Author: [...] Telemetry Capable Location, Expected LOS: 1 Midnight, Steev Koch MD, Chato CAMARGO Review/Approve Yes, SVT [...] Steve Koch MD, Admit Review/Approve Yes, Isolation: Graec Antony, Acute on chronic renal failure | SVT (supraventricular tac... Admit/Condition, 11/28/19 22:54:00 CDT, Status: Out Patient with Observation Services, Telemetry Capable Location, Expected LOS: 1 Midnight, Steve Koch MD, Admit Review/Approve Yes, SVT (supraventricular tachycardia) | Acute renal failure (ARF) Uncontrolled diabetes mellitus(E11.65 ) Ordered: Admit/Condition, 11/29/19 2:11:00 CDT, S tatus: Inpatient, Telemetry Capable Location, Expected LOS: 3 or Greater Midnights, Steve Koch MD, Admit Review/Approve Yes, Isolation: Grace Antony, Acute on chronic renal failure | SVT (supraventricular tac...
--- OUTSIDE RECORDS SUMMARY | 2020-02-26 10:29 | XMS REPORT | Summary of Care ---
:1945 Author Organization [facility] ospital Address [address] [place] [address]- Encounter HQ Aide_amish(FIN) [id number] Date(s): 11/28/[address] [address]- Encounter Diagnosis Supraventricular tachycardia (Final) - Discharge [...] Indigestion, heartburn, 0 Notes: (aluminum hydroxide-magnesium hyd-simethicone [phone]/5ml 30 ml ud PABLO) Start Date: 11/29/19 [...] estimated BMI.4Result Comment: Lab test performed by: [facility] [address] [id number] STIVEN ZAMORA MD5Result Comment: "Significant Findings called [...] SVT. Patient received diagnoses which revealed prolongated MT interval and normalization to si nus rhythm. [...]
--- OUTSIDE RECORDS SUMMARY | 2020-02-26 10:29 | XMS REPORT | Summary of Care ---
:1945 Author Organization [facility] Address [address] [place] [id number]- Encounter [facility] Omayra(FIN) [phone] Date(s): 11/28/[address] [address]- Encounter Diagnosis Supraventricular tachycardia (Final) - Discharge [...] Indigestion, heartburn, 0 Notes: (aluminum hydroxide-magnesium hyd-simethicone [phone]/5ml 30 ml ud PABLO) Start Date: 11/29/19 [...] estimated BMI.4Result Comment: Lab test performed by: [facility] [address] [id number] STIVEN ZAMORA MD5Result Comment: "Significant Findings called [...]
--- OUTSIDE RECORDS SUMMARY | 2020-02-26 10:30 | XMS REPORT | Continuity of Care Document ---
:1945 Author Organization [facility] t Address [address] [place] [address] Care Team Providers Name Role Phone Rick Koch Attending Clinician Alexander Vernon Attending Clinician Rick Koch Admitting Clinician Problems Condition Condition Condition Status Onset Resolution Last Treating Co mments Source Name Details Category Date Date Treatment Clinician Date BREATHING Diagnosis Active 2019-11-28 Memoria PROBLEM 11-27 23:36:00 l 00:00: [place] BREATHING 00 PROBLEM Active 11/28/2019 [facility] SUPRAVENTR Diagnosis Active 2020-01-19 Memoria ICULAR 11-27 13:03:00 l TACHYCARDI 00:00: Brody n A, ACUTE SUPRAVENTR 00 BREANNA ICULAR TACHYCARDI A, ACUTE BREANNA Active 11/28/2019 [facility] DVT/LEGS Diagnosis Active 2014-042015-03-15 M emoria SWOLLEN 05-11 03:10:00 l DVT/LEGS 00:00: Brody n SWOLLEN 00 Active 03/11/2015 [facility] LEG PAIN Diagnosis Active 2012-12-23 M emoria 12-23 04:15:00 l LEG PAIN 00:00: Brody n 00 Active 12/23/2012 [facility] Supraventr Problem 2019-12-10 M emoria icular 22:38:00 l tachycardi Brody n a Supraventr icular tachycardi a 12/10/2019 [facility] Diabetes Problem Resolve 2012-12-25 [place] moria mellitus d 21:52:45 l Diabetes Brody n mellitus Resolved Problem 12/25/2012 [facility] Gout Problem Resolve 2012-12-25 Caden karine d 21:52:45 l Gout Kenneth Resolved Problem 12/25/2012 [facility] Hypertensi Problem Resolve 2012-12-25 Memoria on d 21:52:45 l [place] Hypertensi on Resolved Problem 12/25/2012 [facility] Neuropathy Problem Resolve 2012-12-25 Memoria d 21:52:45 l [place] Neuropathy Resolved Problem 12/25/2012 [facility] Diabetes Problem Resolve 2019-12-10 Me moria mellitus d 22:38:00 l (disorder) Diabetes He rmann mellitus (disorder) Resolved Problem 12/10/2019 [facility] Gout Problem Resolve 2019-12-10 Caden karine (disorder) d 22:38:00 l Gout Kenneth (disorder) Resolved Problem 12/10/2019 [facility] Hypertensi Problem Resolve 2019-12-10 Memoria ve d 22:38:00 l disorder, Kenneth systemic Hypertensi arterial ve (disorder) disorder, systemic arterial (disorder) Resolved Problem 12/10/2019 [facility] Neuropathy Problem Resolve 2019-12-10 Memoria (disorder) d 22:38:00 l [place] Neuropathy (disorder) Resolved Problem 12/10/2019 [facility] Type II Problem Active 2019-12-10 Caden karine diabetes 22:38:00 l mellitus Type II Mariam nn uncontroll diabetes ed mellitus (finding) uncontroll ed (finding) Active Problem 12/10/2019 [facility] SUPRAVENTR Diagnosis Active 2020-01-19 Memoria ICULAR 13:03:00 l TACHYCARDI Brody n A SUPRAVENTR ICULAR TACHYCARDI A Active [facility] ACUTE Diagnosis Active 2020-01-19 Mem oria KIDNEY 13:03:00 l FAILURE, ACUTE Kenneth UNSPECIFIE KIDNEY D FAILURE, UNSPECIFIE D Active [facility] TYPE 2 Diagnosis Active 2020-01-19 Mem oria DIABETES 13:03:00 l MELLITUS TYPE 2 Brody n WITH DIABETES HYPERGLYCE MELLITUS WITH HYPERGLYCE Active [facility] Discharge Problem 2014-2015-03-18 2015-03-18 Memoria Diagnosis: - 05:51:43 05:51:43 l Acute DVT 06:00: [place] (deep Discharge 00 venous Diagnosis: thrombosis Acute DVT ) (deep venous thrombosis ) 03/15/2015 03/18/2015 [facility] Allergies, Adverse Reactions, Alerts Allergy Allergy Status Severity Reaction(s) Onset Inactive Treating Comm ents Source Name Type Date Date Clinician No Known No Known Active Leanneori a Medicati Medicati l on on Kenneth Allergie Allergie s s Social History Social Habit Start Date Stop Date Quantity Comments Source Social History 2019-11-29 2019-11-29 [facility] 08:52:56 08:52:56 Smoking Status Start Date Stop Date Source [facility] Medications Ordered Filled Start Stop Current Ordering Indication Dosage Frequency Signature Comments Components Source Medication Medication Date Date Medication? Clinician (SIG) Name Name metoprolol 2020-0 Yes 25 mg = 1 Me moria succinate 8-18 cap, PO, l 25 mg oral 20:19: Daily, # Her melchor capsule, 00 30 cap, 0 extended Refill(s) release metoprolol 2019-0 No 25 mg = 1 Me moria tartrate 25 8-18 tab, PO, l mg oral 18:18: Q12H, # 60 Herm fred tablet 00 tab, 0 Refill(s) rivaroxaban 2019-0 Yes 20 mg = 1 M emoria 20 mg oral 8-18 tab, PO, l tablet 18:18: QPM, For [place] Deep Venous Thrombosis / Pulmonary Embolism, # 30 tab, 0 Refill(s) Glipizide 5 2019-0 Yes 5 mg = 1 Me moria MG Oral 8-18 tab, PO, l Tablet 18:18: BID-Before Mariam nn 00 Meals, # 60 tab, 0 Refill(s) Saline 0 No Notes: Memoria Flush 0.9% 8-18 Same as: l 02:00: BD Kenneth 00 Posiflush Sterile Saline 0 No Notes: Memoria Flush 0.9% 8-17 Same as: l 17:49: BD Kenneth 00 Posiflush Sterile Xarelto 0 No Notes: Memoria 8-10 (Same as: l 22:00: Xarelto) Administer with food metoprolol 2019-0 No Notes: Memor ia tartrate 8-10 (Same as: l 14:00: Lopressor) morphine 2019-0 No Notes: Memoria Sulfate 8-10 (Same l 08:39: as:MORPhin e Sulfate) carvedilol 2020-0 No Notes: Memor ia 8- Give with l 02:00: food. Kenneth (Same As: Coreg) Adenosine 2020-0 No Notes: Memori a 11-28 Rapid IV l 22:36: PUSH over [place] 00 1-2 sec; Flush line immediatel y after drug is given. Lac-Hydrin 2019-0 No Notes: Memor ia 11-28 (Same as: l 22:00: Ainhactin) Xarelto 2020-0 No = 15 Memoria - mL/min, l 22:00: Start Kenneth date: 11/29/19 17:00:00 CDT, Duration: 30 day, Stop date: 12/28/19 17:00:00 CDT, For Deep Venous Thrombosis / Pulmonary Embolism Lactic acid 2019-0 No 1 appl, Mem oria 100 MG/ML 11-28 Route: l Topical 14:00: TOP, BID, Mariam nn Lotion 00 Start date: 11/29/19 9:00:00 CDT, Duration: 30 day, Stop date: 12/28/19 17:00:00 CDT heparin 2019-0 No Notes: Memoria 11-28 porcine l 13:00: heparin Glipizide 5 2020-0 No 5 mg = 1 Me moria MG Oral 11-28 tab, PO, l Tablet 09:01: BID-Before Mariam nn 00 Meals, # 30 tab, 1 Refill(s) NIFEdipine 2019-0 No 30 mg = 1 Me moria 30 mg oral -09 tab, PO, l tablet, 09:01: Daily, # Brody n extended 00 30 tab, 0 release Refill(s) Dextrose 2020-0 No 12.5 gm, Memor ia 50% Syringe 11-28 25 mL, l (D50W) 07:13: Route: IVP, Drug Form: INJ, Dosing Weight 113.636, kg, PRN, PRN Blood Glucose Results, Start date: 11/29/19 2:13:00 CDT, Duration: 30 day, Stop date: 12/29/19 2:12:00 CDT, 0 Glucagon 2020-0 No 1 mg, Memoria 11-28 Route: IM, l 07:13: Drug form: PDR/INJ, PRN, Dosing Weight 113.636, kg, PRN Blood Glucose Results, Start date: 11/29/19 2:13:00 CDT, Duration: 30 day, Stop date: 12/29/19 2:12:00 CDT, 0 Insulin 2020-0 No Notes: Memoria Lispro 11-28 (Same as: l 07:13: Humalog) Kenneth 00 Roll in palms of hands gently; Do not shake vigorously . WASTE: F/P - Black; E - Municipal Trash Bin Stable for 28 days at room temperatur e. Expires in days from ____Date Docusate 2019-0 No Notes: Memoria 11-28 (Same as: l 07:11: Colace) [place] (Do Not Crush) Ondansetron 2019-0 No Notes: Caden karine 11-28 (Same as: l 07:11: Zofran) Kenneth 00 MEDICATION WASTE Product Size: 4 mg Product Wasted: ___ mg Trazodone 2019-0 No Notes: Memori a 11-28 (Same As: l 07:11: Desyrel) [place] 00 Acetaminoph 2020-0 No Notes: Do M emoria en 11-28 not exceed l 07:11: 4 gm/day. Kenneth 00 (Same as: Tylenol) Lactated 0 No 1,000 mL, Caden karine Ringers IV 11-28 Rate: 75 l 1,000 mL 07:11: ml/hr, [place] Infuse over: 13.3 hr, Route: IV, Dosing Weight 113.636 kg, Total Volume: 1,000, Priority: Routine, Start date: 11/29/19 2:11:00 CDT, Duration: 30 day, Stop date: 12/29/19 2:10:00 CDT, 2.44, m2, 0 Maalox 2020-0 No Notes: Memoria Advanced 11-28 (aluminum l Regular 07:11: hydroxide- Herm fred Strength 00 magnesium SUSP hyd-simeth icone 200-200-20 mg/5ml 30 ml ud PABLO) Morphine 2019-0 No Notes: Memoria 11-28 (Same l 07:11: as:MORPhin [place] 00 e Sulfate) Albuterol 2020-0 No Notes: Memori a 0.833 MG/ML 11-28 (Same as: l / 07:11: Duoneb) [place] Ipratropium 00 Comins 0.167 MG/ML Inhalant Solution [DuoNeb] Hydralazine No Notes: Caden karine 11-28 (Same as: l 07:11: Apresoline Kenneth ) Push over 5 minutes 1 ML 2014-04 Yes 130 mg, Memoria Enoxaparin 1-24 SUB-Q, l sodium 150 13:43: Q12H, # 10 H ermann MG/ML 00 ea, 0 Prefilled Refill(s) Syringe [Lovenox] warfarin 2014-04 Yes 10 mg = 1 M emoria mg oral 1-24 tab, PO, l tablet 13:43: Daily, # [place] 00 14 tab, 0 Refill(s) 1 ML 2014-04 No 130 mg, Memoria Enoxaparin 1-24 SUB-Q, l sodium 150 13:40: Q12H, # 10 H ermann MG/ML 28 ea, 0 Prefilled Refill(s) Syringe [Lovenox] Lovenox 2014-04 Yes Notes: Memoria 05-15 Nurse to l 13:39: ensure Kennteh 00 documentat ion of patient education per anticoagul ation policy. (Same as: Lovenox) warfarin 2014-04 No 10 mg = 1 M emoria mg oral 1-24 tab, PO, l tablet 13:31: Daily, # [place] 00 14 tab, 0 Refill(s) 1 ML 2014-04 No 150 mg, Memoria Enoxaparin 1-24 SUB-Q, l sodium 150 13:30: Q12H, # 10 H ermann MG/ML 00 ea, 0 Prefilled Refill(s) Syringe [Lovenox] Lovenox 2014-04 No 150 mg, Memoria -24 Route: l 13:15: SUB-Q, Kenneth 00 ONCE, Dosing Weight 127.273, kg, Start date: 03/15/15 7:15:00, Stop date: 03/15/15 7:15:00 PlasmaLyte 2014-04 No Notes: Memor ia A PH-7.4 05-15 (Same as: l 1,000 mL 10:42: Isolyte S Herm fred 00 PH 7.4) colchicine Yes Silvia K 0.6 mg, 1 Memoria 0.6 mg oral 12-23 [facility] tab, PO, l tablet 09:47: Q1H, PRN, Brody n 55 10 tab, Other-See Comments, Substituti on Allowed tramadol 50 Yes Silvia K 50 mg, 1 Memoria mg oral 12-23 [place] tab, PO, l tablet 09:47: Q6H, PRN, Brody n 20 40 tab, Pain, Substituti on Allowed, TAB allopurinol Yes Silvia K 300 mg, 1 Memoria 300 mg oral 12-23 [facility] tab, PO, l tablet 09:47: Daily, 30 Brody n 10 tab, Substituti on Allowed, TAB allopurinol No Silvia K 300 mg, 1 Memoria 12-23 [facility] tab, l 09:08: Route: PO, [place] 00 Drug form: TAB, ONCE, Dosing Weight 135, kg, Start date: 12/23/12 4:08:00, Stop date: 12/23/12 4:08:00 [place] No Silvia K 1 tab, Memori a 7.5/325 12-23 [place] Route: PO, l oral tablet 08:48: Drug Form: Kenneth 00 TAB, Dosing Weight 135, kg, ONCE, Start date: 12/23/12 3:48:00, Stop date: 12/23/12 3:48:00 ketorolac No Silvia K 30 mg, 1 Memoria 12-23 [facility] mL, Route: l 08:45: IM, Drug Kenneth 00 form: INJ, ONCE, Dosing Weight 135, kg, Priority: STAT, Start date: 12/23/12 3:45:00, Stop date: 12/23/12 3:45:00 allopurinol No Sivlia K Route: PO, Memoria 12-23 [facility] ONCE, l 08:45: Dosing Kenneth 00 Weight 135, kg, Start date: 12/23/12 3:45:00, Stop date: 12/23/12 3:45:00 Vital Signs Vital Name Observation Time Observation Value Comments Source Heart Rate 2019-12-08 21:00:00 [facility] Kenneth Respitory Rate 2019-12-08 21:00:00 Memori al [place] Systolic (mm Hg) 2019-12-08 21:00:00 Caden rial Kenneth Diastolic (mm Hg) 2019-12-08 21:00:00 Mem orial [place] Heart Rate 2019-12-08 16:54:00 [facility] Kenneth Respitory Rate 2019-12-08 16:54:00 Memori al Kenneth Systolic (mm Hg) 2019-12-08 16:54:00 Caden rial Kenneth Diastolic (mm Hg) 2019-12-08 16:54:00 Mem orial Kenneth Heart Rate 2019-12-08 13:00:00 [facility] Kenneth Respitory Rate 2019-12-08 13:00:00 Memori al Kenneth Systolic (mm Hg) 2019-12-08 13:00:00 Caden rial Kenneth Diastolic (mm Hg) 2019-12-08 13:00:00 Mem orial Kenneth Temperature Oral (F) 2019-12-08 01:00:00 99.1 F [facility] [place] Temperature Oral (F) 2019-12-07 23:50:00 98.4 F [facility] [place] Temperature Oral (F) 2019-12-07 22:40:00 98.2 F [facility] [place] Temperature Oral (F) 2019-12-07 04:58:00 97.9 F [facility] Kenneth Heart Rate 2019-12-07 04:58:00 [facility] Kenneth Respitory Rate 2019-12-07 04:58:00 Memori al [place] Systolic (mm Hg) 2019-12-07 04:58:00 Caden rial Kenneth Diastolic (mm Hg) 2019-12-07 04:58:00 Mem orial Kenneth Heart Rate 2019-12-07 00:46:00 [facility] Kenneth Respitory Rate 2019-12-07 00:46:00 Memori al Kenneth Systolic (mm Hg) 2019-12-07 00:46:00 Caden rial Kenneth Diastolic (mm Hg) 2019-12-07 00:46:00 Mem orial [place] Temperature Oral (F) 2019-12-07 00:46:00 98.4 F [facility] Kenneth Heart Rate 2019-12-06 21:00:00 [facility] Kenneth Respitory Rate 2019-12-06 21:00:00 Memori al [place] Systolic (mm Hg) 2019-12-06 21:00:00 Caden rial Kenneth Diastolic (mm Hg) 2019-12-06 21:00:00 Mem orial [place] Temperature Oral (F) 2019-12-06 19:00:00 97.5 F [facility] Kenneth Heart Rate 2019-11-30 04:50:00 [facility] Kenneth Respitory Rate 2019-11-30 04:50:00 Memori al [place] Systolic (mm Hg) 2019-11-30 04:50:00 Caden rial [place] Diastolic (mm Hg) 2019-11-30 04:50:00 Mem orial Kenneth Heart Rate 2019-11-30 01:00:00 [facility] [place] Respitory Rate 2019-11-30 01:00:00 Memori al Kenneth Systolic (mm Hg) 2019-11-30 01:00:00 Caden rial Kenneth Diastolic (mm Hg) 2019-11-30 01:00:00 Mem orial Kenneth Heart Rate 2019-11-29 22:41:00 [facility] [place] Systolic (mm Hg) 2019-11-29 22:41:00 Caden rial Kenneth Diastolic (mm Hg) 2019-11-29 22:41:00 Mem orial [place] Respitory Rate 2019-11-29 21:05:00 Memori al Kenneth Height 2019-11-29 08:57:00 185.42 cm [facility] [place] Weight 2019-11-29 08:57:00 [facility] [place] BMI Calculated 2019-11-29 08:57:00 Memori al Kenneth Height 2019-11-29 02:04:00 185.42 cm [facility] Kenneth BMI Calculated 2019-11-29 02:04:00 Memori al [place] Weight 2019-11-29 02:04:00 [facility] Kenneth Temperature Oral (F) 2019-11-29 02:04:00 98.2 F [facility] [place] Respitory Rate 2015-03-15 14:30:00 Memori al Kenneth Temperature Oral (F) 2015-03-15 14:30:00 98.0 F [facility] [place] Heart Rate 2015-03-15 14:30:00 [facility] [place] Systolic (mm Hg) 2015-03-15 14:30:00 Caden rial [place] Diastolic (mm Hg) 2015-03-15 14:30:00 Mem orial [place] Systolic (mm Hg) 2015-03-15 13:30:00 Caden rial Kenneth Diastolic (mm Hg) 2015-03-15 13:30:00 Mem orial Kenneth Respitory Rate 2015-03-15 13:30:00 Memori al [place] Respitory Rate 2015-03-15 12:30:00 Memori al [place] Temperature Oral (F) 2015-03-15 12:30:00 97.0 F [facility] Kenneth Systolic (mm Hg) 2015-03-15 12:30:00 Caden rial [place] Diastolic (mm Hg) 2015-03-15 12:30:00 Mem orial [place] Temperature Oral (F) 2015-03-15 10:32:00 97.4 F [facility] Kenneth Heart Rate 2015-03-15 04:52:00 [facility] [place] Height 2015-03-15 04:52:00 185.42 cm [facility] Kenneth Weight 2015-03-15 04:52:00 [facility] Kenneth BMI Calculated 2015-03-15 04:52:00 Memori al [place] Temperature Oral (F) 2012-12-23 09:57:00 98.5 F [facility] [place] Systolic (mm Hg) 2012-12-23 09:57:00 Caden rial Kenneth Respitory Rate 2012-12-23 09:57:00 Memori al Kenneth Heart Rate 2012-12-23 09:57:00 [facility] [place] Diastolic (mm Hg) 2012-12-23 09:57:00 Mem orial Kenneth Respitory Rate 2012-12-23 08:29:00 Memori al [place] Heart Rate 2012-12-23 08:29:00 [facility] [place] Temperature Oral (F) 2012-12-23 08:29:00 97.9 F [facility] [place] Systolic (mm Hg) 2012-12-23 08:29:00 Caden rial [place] Diastolic (mm Hg) 2012-12-23 08:29:00 Mem orial [place] Weight 2012-12-23 08:29:00 [facility] Kenneth Height 2012-12-23 08:29:00 185.42 cm [facility] Kenneth Procedures This patient has no known procedures. Encounters Start End Encounter Admission Attending Care Care Encounter Source Date/Time Date/Time Type Type Clinicians Facility Department ID 2019-11-28 2019-12-08 Outpatient [facility], [facility] [id number] 20:58:40 17:45:00 Steve Fox [facility] 2019-11-29 2019-11-28 Inpatient [id number] 02:11:00 22:54:00 2019-11-28 2019-11-28 Outpatient [facility], [facility] [id number] 20:58:40 20:58:40 Steve Fox [facility] 2019-11-28 2019-11-28 Outpatient Oje, [facility] [id number] 20:58:40 20:58:40 Steve Fox [facility] 2019-11-28 2019-11-28 Outpatient Oje, [facility] [id number] 20:58:40 20:58:40 Steve Fox [facility] 2019-11-28 2019-11-28 Outpatient Oje, [facility] [id number] 20:58:40 20:58:40 Steve Fox [facility] 2019-11-28 2019-11-28 [facility] [id number] 20:58:40 20:58:40 Steve Fox [facility] 2015-03-14 2015-03-15 Outpatient SauloAshley pierre [facility] [id number] 22:35:00 08:30:00 Alexander 01 Results Test Description Test Time Test Comments Results Result [facility] e Comments IMMUNOLOGY 2019-12-05 Not Detected Memorial 18:37:00 *NA*(12/05/19 Kenneth 1:37 PM) IMMUNOLOGY 2019-12-04 Not Detected Memorial 17:53:00 *NA*(12/04/19 [place] 12:53 PM) CHEM PANEL 2019-12-02 85 [facility] 09:50:00 [place] CHEM PANEL 2019-12-02 18 [facility] 09:50:00 Kenneth CHEM PANEL 2019-12-02 1.50 Memorial 09:50:00 Kenneth CHEM PANEL 2019-12-02 146 [facility] 09:50:00 [place] CHEM PANEL 2019-12-02 4.3 [facility] 09:50:00 Kenneth CHEM PANEL 2019-12-02 112 [facility] 09:50:00 [place] CHEM PANEL 2019-12-02 26 [facility] 09:50:00 Kenneth CHEM PANEL 2019-12-02 8.5 Memorial 09:50:00 Kenneth CHEM PANEL 2019-12-02 12.3 Memorial 09:50:00 Kenneth CHEM PANEL 2019-12-02 52 [facility] 09:50:00 Kenneth HEMATOLOGY 2019-12-02 47.5 [facility] 09:50:00 [place] HEMATOLOGY 2019-12-02 35.6 [facility] 09:50:00 [place] HEMATOLOGY 2019-12-02 13.0 Memorial 09:50:00 [place] HEMATOLOGY 2019-12-02 2.9 Memorial 09:50:00 Kenneth HEMATOLOGY 2019-12-02 1.0 Memorial 09:50:00 Kenneth HEMATOLOGY 2019-12-02 3.1 [facility] 09:50:00 [place] HEMATOLOGY 2019-12-02 2.4 [facility] 09:50:00 [place] HEMATOLOGY 2019-12-02 0.9 Memorial 09:50:00 [place] HEMATOLOGY 2019-12-02 0.2 [facility] 09:50:00 [place] HEMATOLOGY 2019-12-02 0.1 [facility] 09:50:00 [place] HEMATOLOGY 2019-12-02 3+ *NA*(12/02/19 Memorial 09:50:00 4:50 AM) [place] HEMATOLOGY 2019-12-02 1+ (12/02/19 Memorial 09:50:00 4:50 AM) Kenneth HEMATOLOGY 2019-12-02 Moderate [facility] 09:50:00 *ABN*(12/02/19 [place] 4:50 AM) HEMATOLOGY 2019-12-02 Moderate [facility] 09:50:00 *ABN*(12/02/19 [place] 4:50 AM) HEMATOLOGY 2019-12-02 6.6 [facility] 09:50:00 [place] HEMATOLOGY 2019-12-02 5.85 [facility] 09:50:00 [place] HEMATOLOGY 2019-12-02 11.4 [facility] 09:50:00 Kenneth HEMATOLOGY 2019-12-02 36.3 [facility] 09:50:00 [place] HEMATOLOGY 2019-12-02 62.0 [facility] 09:50:00 Kenneth HEMATOLOGY 2019-12-02 09:50:00 Test Item Value Reference Range Interpretation Comme nts MCH (test code = MCH) 19.5 pg 27.0-31.0 Memorial [id number] 09:50:0031.4[facility] HermannHEMATOLOGY 2019-12-02 09:50:0016.3[facility] IzidcopWIEFBSRNUX0856-30-55 09:50:29048Rfzeifzi OuncsqrHYVUPBPXOT2050-98-36 09:50:009.0[facility] HermannCHEM [id number] 11:25:0090[facility] HermannCHEM [id number] 11:25:0025[facility] HermannCHEM [id number] 11:25:001.80[facility] HermannCHEM [id number] 11:25:73269 [facility]annCHEM [id number] 11:25:004.5[facility] HermannCHEM PANEL 2019-11-30 11:25:80936Mhohbupl HermannCHEM [id number] 11:25:0024[facility] HermannCHEM [id number] 11:25:008.7[facility] HermannCHEM [id number] 11:25:0012.5[facility] HermannCHEM [id number] 11:25:0042[facility] [place] [id number] 20:16:00Detected 5*ABN*(11/29/19 3:16 PM)[facility] [place] ANEMIA [id number] 15:19:0073[facility] HermannANEMIA [id number] 15:19:00 216[facility] HermannANEMIA [id number] 15:19:0034[facility] HermannURINE AND [id number] 14:58:00Slight *ABN*(11/29/19 9:58 AM)[facility] [id number] 14:58:00 Test Item Value Reference Range Interpretation Comments UA Spec Grav (test code = UA Spec 1.015 1 Grav) [facility] [id number] 14:58:00 Test Item Value Reference Range Interpretation Comments UA pH (test code = UA pH) 5.0 1 5.0-8.0 [facility] [id number] 14:58:00Negative *NA*(11/29/19 9:58 AM) [facility] [id number] 14:58:00Small *ABN*(11/29/19 9:58 AM) [facility] [id number] 14:58:00Negative (11/29/19 9:58 AM) [facility] [id number] 14:58:00Negative (11/29/19 9:58 AM) [facility] [id number] 14:58:002[facility] AND [id number] 14:58:009[facility] AND [id number] 14:58:00 <=1.0[facility] HermannCARDIAC [id number] 13:13:000.04[facility] [place] CARDIAC [id number] 09:43:000.04[facility] HermannCHEM [id number] 09:43:0099[facility] HermannCHEM [id number] 09:43:0029[facility] HermannCHEM [id number] 09:43:002.90[facility] HermannCHEM [id number] 09:43:51048 [facility]annCHEM [id number] 09:43:004.5[facility] HermannCHEM PANEL 2019-11-29 09:43:63839Fkdmetgo HermannCHEM [id number] 09:43:0026[facility] HermannCHEM [id number] 09:43:009.4[facility] HermannCHEM [id number] 09:43:008.0[facility] HermannCHEM [id number] 09:43:003.5[facility] HermannCHEM [id number] 09:43:0034[facility] HermannCHEM [id number] 09:43:0020 [facility]annCHEM [id number] 09:43:0084[facility] HermannCHEM PANEL 2019-11-29 09:43:000.7[facility] HermannCHEM [id number] 09:43:0012.5[facility] HermannCHEM [id number] 09:43:00 Test Item Value Reference Range Interpretation Comments B/C Ratio (test code = B/C Ratio) 10 1 6-25 [facility]annCHEM [id number] 09:43:004.5[facility] HermannCHEM PANEL 2019-11-29 09:43:00 Test Item Value Reference Range Interpretation Comments A/G Ratio (test code = A/G Ratio) 0.8 1 0.7-1.6 [facility]annCHEM [id number] 09:43:0024[facility] HermannCHEM PANEL 2019-11-29 09:43:002.1[facility] HermannCHEM [id number] 09:43:004.3[facility] HermannCHEM [id number] 09:43:000.28[facility] HermannCHEM [id number] 09:43:001.5[facility] WtodqtmENWIJTAKFF8226-72-02 09:43:008.0[facility] [place] LLVQUEBZHX1318-08-35 09:43:001.4[facility] NdmmouiQTYPYHFRZQ6405-89-60 09:43:000.8 Memorial XcabnsrVCGTBZCXGW0309-82-77 09:43:000.3[facility] HermannHEMATOLOGY 2019-11-29 09:43:0076.0[facility] LcndffnKFPRUKVQDB8300-76-62 09:43:000.0[facility] ZgwqkrcCEHCMGHAMQ4844-82-80 09:43:0012.0[facility] LlwbobuKGSLFBFGVO6258-95-66 09:43:008.0[facility] HldfkseGMAMZBXZIR2975-94-46 09:43:003.0[facility] [place] XQRXJNOTHX4381-16-03 09:43:001.0[facility] MplvwshEWJBCKUGOQ3696-25-19 09:43:00 Normal (11/29/19 4:43 AM)[facility] SkrkrbsYYRDBPFKRD4085-08-65 09:43:003+ *ABN*(11/29/19 4:43 AM)[facility] IpmqlgxWAOIKOJTTT4969-10-04 09:43:001+ (11/29/19 4:43 AM)[facility] YcvhaueFSPAKOSQMG6197-68-49 09:43:00Moderate *ABN*(8/9/20 4:43 AM)[facility] EppdeydTDIQLSGPQB0993-97-40 09:43:00Moderate *ABN*(11/29/19 4:43 AM) [facility] ObluxxeQZRDPQKVEA1906-88-56 09:43:00Slight *ABN*(11/29/19 4:43 AM) [facility] ZgxibmoOGUZKYVYBT1793-54-76 09:43:0010.5[facility]annHEMATOLOGY 2019-11-29 09:43:006.37[facility] DtvfgmdEASXQEKCFH4225-26-29 09:43:0012.2[facility] SvcmngtZWKMKDVEDA3300-99-33 09:43:0039.4[facility] OtiqmobDSNQADOMPL7177-41-96 09:43:0061.8[facility] ZqkraylICYCMVUYCA0260-28-51 09:43:00 Test Item Value Reference Range Interpretation Comments MCH (test code = MCH) 19.2 pg 27.0-31.0 [facility] EksejyyFBQKFMJICH7588-30-17 09:43:0031.0[facility]annHEMATOLOGY 2019-11-29 09:43:0016.4[facility] NnbthwxTGROTJJQIX8745-64-69 09:43:36630Idbfxxrq FwajpanYIRUSGPLWA5274-10-20 09:43:009.9[facility] MefstmaGXISGYDYIS0228-73-44 05:59:00Not Detected (11/29/19 12:59 AM)[facility]annCARDIAC HBKINLS0961-03-71 02:39:60921Ayjwlvsp HermannCARDIAC USNKPOD5118-62-77 02:39:000.04[facility] HermannCARDIAC KJSBASI3810-51-76 02:39:88082Hiohlwyr HermannCHEM EVYXE7154-46-54 02:39:0097[facility] HermannCHEM FAWIN7165-57-31 02:39:0026[facility] HermannCHEM XKSNH6829-07-67 02:39:003.40[facility]annCHEM DIQMH6971-35-61 02:39:55478 [facility]annCHEM OXUOI4526-91-25 02:39:004.0[facility]annCHEM PANEL 2019-11-29 02:39:95252Srggkoux HermannCHEM ARZWF6925-81-92 02:39:0026[facility]annCHEM SWMVM1036-88-00 02:39:0010.4[facility]annCHEM RYIQK2964-76-00 02:39:0012.0[facility]annCHEM ZLWIS0630-04-85 02:39:0019[facility]annCHEM YYRJC0531-76-73 02:39:008.5[facility]annCHEM LBVHZ3437-22-56 02:39:003.6 [facility]annCHEM HYMYD0949-72-48 02:39:0033[facility] HermannCHEM PANEL 2019-11-29 02:39:0024[facility] HermannCHEM NBQQY7239-11-44 02:39:0081[facility] HermannCHEM QBFDP0675-09-89 02:39:000.7[facility]ann[facility] YOMCX4928-84-02 02:39:000.2[facility]annCHEM QMEHP1352-87-69 02:39:000.5[facility]annCHEM LLKJC8860-92-79 02:39:004.9[facility]annCHEM EQOBE3799-10-85 02:39:00 Test Item Value Reference Range Interpretation Comments A/G Ratio (test code = A/G Ratio) 0.7 1 0.7-1.6 [facility] MQYER0171-24-98 02:39:002.4[facility] HermannHEMATOLOGY 2019-11-29 02:39:0010.5[facility] VhzyjjnHCLJXDNAQJ9656-24-76 02:39:006.24[facility] MdkzhseQQXQNDCJCE7775-00-48 02:39:0012.1[facility] FacyzhyCYXYBEIQMO2173-04-22 02:39:0039.8[facility] IdgudnwEWFJTIIYVM7952-82-74 02:39:0063.8[facility] VURUXKHCCX0120-25-28 02:39:00 Test Item Value Reference Range Interpretation Comments MCH (test code = MCH) 19.3 pg 27.0-31.0 [facility] FxcypieWPLPXKCXHF8825-21-46 02:39:0030.3[facility] HermannHEMATOLOGY 2019-11-29 02:39:0016.5[facility] SmqdxzxRPHKVKBVOG8997-06-50 02:39:25764Hnnkcwap FxtqhqnVSTNKXVBXT6897-84-24 02:39:009.4[facility] IuybtyeLTFOEBXDDY4486-38-62 02:39:00 Test Item Value Reference Range Interpretation Comments PT (test code = PT) 14.3 s 12.0-14.7 [facility] FqpoxzgQVQSBZPBFS9959-95-55 02:39:00 Test Item Value Reference Range Interpretation Comments INR (test code = INR) 1.11 1 0.85-1.17 [facility] AnnhoalZCKARKOLUN9049-00-12 02:39:00 Test Item Value Reference Range Interpretation Comments PTT (test code = PTT) 28.6 s 22.9-35.8 [facility] NltjrhiYROIUJGGKS9053-81-87 02:39:008.4[facility]annHEMATOLOGY 2019-11-29 02:39:001.3[facility] AdymxrsMCNGNQKXVG7581-60-96 02:39:000.7[facility] UnvkpqpBVRNQLSSPP6848-81-36 02:39:000.1[facility] MyswlgjXLBNHQPJCG5987-41-19 02:39:0077.0[facility] FhmjjbuYPIKIFTPKO0582-79-55 02:39:003.0[facility] MJJVIFUTBV2469-07-84 02:39:0012.0[facility] DrakwdbLJOBQZCFUA8425-65-69 02:39:00 7.0[facility] UccyralPJVCBUHFZU3951-97-84 02:39:001.0[facility]annHEMATOLOGY 2019-11-29 02:39:000.0[facility] TbwgwpmXCYRCIUGVP2969-30-37 02:39:001+ *ABN*(11/28/19 9:39 PM)[facility] ClswyvoDBJCICOEYF9862-56-93 02:39:002+ *ABN*(11/28/19 9:39 PM)[facility] BquijhvNVYGRESYSV0765-67-87 02:39:001+ (11/28/19 9:39 PM)[facility] YalrvguIWLAUQCJQH7868-72-76 02:39:00Moderate *ABN*(11/28/19 9:39 PM)[facility] RmzmletIPSCIYIEYJ1613-98-54 02:39:00Moderate *ABN*(11/28/19 9:39 PM) [facility] WzmpmljJGQMIOQXPW0702-35-86 02:39:00Moderate *ABN*(11/28/19 9:39 PM) [facility] CEDXI1699-78-14 12:32:008.5[facility] HermannCHEM PANEL 2015-03-15 12:32:0056[facility]annCHEM UKZWZ4908-13-51 12:32:0027[facility]annCHEM WJOAQ2228-14-56 12:32:009.8[facility]annCHEM FHLYR9716-17-32 12:32:71634Aiswqfaa HermannCHEM XSVBA7071-84-64 12:32:003.8[facility]annCHEM VNPCP6443-51-79 12:32:11411Mflqcscv HermannCHEM TXVNW4949-37-08 12:32:62573 [facility] JICCC0702-96-02 12:32:0018[facility]annCHEM PANEL 2015-03-15 12:32:001.45[facility]annCHEM GIPHP6472-72-04 09:17:0052[facility]annCHEM AQZCP2625-68-74 09:17:07274Zlwmqjzc HermannCHEM JNBAL7007-62-99 09:17:98313Abihliyo HermannCHEM XVVXQ6827-00-37 09:17:0025[facility] XSNTS9498-00-22 09:17:009.0[facility]annCHEM XJPCI3224-04-33 09:17:005.7 [facility]annCHEM UYFXP3366-27-45 09:17:94303Aooeuiss HermannCHEM PANEL 2015-03-15 09:17:0021[facility]annCHEM KAQQM4070-65-89 09:17:001.55[facility]annCHEM BVXOJ3764-28-86 09:17:0015.7[facility] MzeznqfURHMJEXTAA0379-01-71 09:17:0029.7[facility] KspzrjgUAKZNOXUBO3413-54-10 09:17:009.4[facility] LEFRESZYUC2083-97-82 09:17:001.0[facility] EqcjaamLFWPKXFWHY5015-71-37 09:17:004.6 [facility] EozzemiATJZIGIHKY3876-52-57 09:17:002.1[facility] HermannHEMATOLOGY 2015-03-15 09:17:004.0[facility] KayklncSRGCUZRDZI9987-14-75 09:17:000.1[facility] IucylvzSZCKGYWFNO8119-66-96 09:17:000.3[facility] FspmogbDSPTRDDZLF9218-48-27 09:17:0055.3[facility] XeilpwyWOSWECFJSG8612-26-92 09:17:003+ *NA*(03/15/15 3:17 AM)[facility] ClgkknwOXDCDCTDUB6924-01-28 09:17:000.7[facility] HermannHEMATOLOGY 2015-03-15 09:17:00Moderate *ABN*(03/15/15 3:17 AM)[facility]annHEMATOLOGY 2015-03-15 09:17:001+ (03/15/15 3:17 AM)[facility] CvalwwiNOXIQYGXBK3901-93-31 09:17:001+ *ABN*(03/15/15 3:17 AM)[facility] UhlyxbiTGXMEQODXL2345-26-76 09:17:00 1.23[facility] ObbvswoVCQJOTZMPN3071-94-24 09:17:00 Test Item Value Reference Range Interpretation Comments PT (test code = PT) 15.8 s 12.0-14.7 [facility] RgujxqqWYYTJKGJTM1813-77-72 09:17:00 Test Item Value Reference Range Interpretation Comments PTT (test code = PTT) 37.7 s 22.9-35.8 [facility] NabglhbOGOLLUTTIA3851-97-43 09:17:00 Test Item Value Reference Range Interpretation Comments MCH (test code = MCH) 18.8 pg 27.0-31.0 [facility] YonunzhGNGGAFVCUC0110-10-49 09:17:0062.9[facility] HermannHEMATOLOGY 2015-03-15 09:17:009.0[facility] UswmmgpXXCBBKYEVS3518-52-35 09:17:91905Upvjvrpb DynewncYFMYNEISNS7577-03-38 09:17:0018.2[facility] FbfkjwlSERRUKINQG2919-89-71 09:17:0029.9[facility] LenpvegBEPBLAYLMX6201-48-31 09:17:0041.1[facility] WYWNZKMREM7332-96-47 09:17:0012.3[facility] HgfzdfaLKGBSHHZIH1768-57-47 09:17:00 6.7[facility] NkilpfuQJNVECVAXS2606-91-34 09:17:006.54[facility]
[2020-02-26 10:39] LABS: Protime INR 1.05
[2020-02-26 10:43] LABS: MPV 9.4 fL (7.6-11.3); RBC Red Blood Cell Count 5.86 M/uL (4.33-5.43)
[2020-02-26] MEDS ORDERED: FUROSEMIDE 100 MG/10 ML VIAL IV ONE (10:43)
[2020-02-26 11:01] LABS: ALT/SGPT 14 U/L (12-78); AST/SGOT 15 U/L (15-37); Albumin 3.2 g/dL (3.4-5.0); Alkaline Phosphatase 102 U/L (45-117); BUN Blood Urea Nitrogen 12 mg/dL (7-18); Bicarbonate 29 mmol/L (21-32); Bilirubin Direct 0.1 mg/dL (0-0.2); Bilirubin Total 0.5 mg/dL (0.2-1.0); Glucose Level 95 mg/dL (74-106); Magnesium 2.1 mg/dL (1.8-2.4); NT PRO-BNP 1826 pg/mL (<125); Protein, Total 7.6 g/dL (6.4-8.2); Sodium Level 143 mmol/L (136-145); Troponin (Emerg Dept Use Only) < 0.02 ng/mL (0.0-0.045)
--- NOTE | 2020-02-26 11:16 | RAD REPORT ---
EXAM DESCRIPTION: RAD - Chest Single View - 02/26/2020 11:11 am CLINICAL HISTORY: CHEST PAIN Chest pain. COMPARISON: Chest Single View dated 04/06/2019; Chest Single View dated 11/24/2018; Chest Single View dated 09/08/2017; Chest Single View dated 08/30/2017 FINDINGS: Portable technique limits examination quality. The lungs are grossly clear. The heart is upper limit normal in size with a tortuous thoracic aorta. No displaced fractures. IMPRESSION: No acute intrathoracic process suspected.
[2020-02-26 12:04] LABS: Blood Morphology Comment NOTED (NOT SEEN); Hypochromasia 2+; Platelet Estimate ADEQ
--- NOTE | 2020-02-26 12:56 | RAD REPORT ---
EXAM DESCRIPTION: US - Extrem Venous W Compress Ronaldo - 02/26/2020 12:41 pm CLINICAL HISTORY: SWELLING Bilateral leg edema and swelling. COMPARISON: Extrem Venous W Compress Ronaldo dated 09/08/2017 TECHNIQUE: Real-time sonographic interrogation of the left and right lower extremity deep venous sys tems was performed. FINDINGS: Echogenic material is seen in both popliteal veins with partial compressibility and partia l flow, most compatible with chronic thrombus. No acute DVT is seen. 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 No acute DVT is evident.
--- NOTE | 2020-02-26 14:18 | ER ---
Nurse's Notes [facility] Name: Tal Cornejo Age: 74 yrs Sex: Male : 1945 Arrival Date: 02/26/2020 Time: 10:07 Bed 4 Private MD: Diagnosis: Chest pain, unspecified;Right sided heart failure Presentation: 02/25 10:18 Chief complaint: Patient states: chest pain x 2 days, worse with deep breathing and ss swelling to bilateral lower extremities x > 1 week. Pt states he has not taken his meds in two weeks. Coronavirus screen: Client denies travel out of the [place] in the last 14 days. Ebola Screen: Patient denies exposure to infectious person. Patient denies travel to an Ebola-affected area in the 21 days before illness onset. Risk Assessment: Do you want to hurt yourself or someone else? Patient reports no desire to harm self or others. Onset of symptoms was February 21, 2020. 10:18 Method Of Arrival: Wheelchair ss 10:22 Initial Sepsis Screen: Does the patient meet any 2 criteria? RR > 20 per min. No. ss Patient's initial sepsis screen is negative. Does the patient have a suspected source of infection? No. Patient's initial sepsis screen is negative. 10:22 Acuity: MARTITA 3 ss Historical: - Allergies: 10:20 No Known Allergies; ss - PMHx: 10:20 Diabetes - NIDDM; DVT; Gout; Hyperlipidemia; Hypertension; LYMPHODEMA; PE; ss - PSHx: 10:20 femur surgery; ss - Immunization history:: Adult Immunizations unknown, Flu vaccine is not up to date. - Social history:: Smoking status: Patient denies any tobacco usage or history of. Screenin:25 Abuse screen: Denies threats or abuse. Nutritional screening: No deficits noted. em Tuberculosis screening: No symptoms or risk factors identified. Fall Risk None identified. Assessment: 10:25 General: Appears in no apparent distress. uncomfortable, Behavior is calm, cooperative, em appropriate for age, Denies fever. Pain: Complains of pain in chest Pain does not radiate. Pain currently is 5 out of 10 on a pain scale. Pain began 2 weeks ago. Neuro: Level of Consciousness is awake, alert, obeys commands, Oriented to person, place, time, situation, Appropriate for age. Cardiovascular: Reports shortness of breath, Capillary refill < 3 seconds Patient's skin is warm and dry. Edema is 1+ to left ankle, left foot, right ankle and right foot Rhythm is sinus rhythm Chest pain. Respiratory: Reports shortness of breath on exertion Airway is patent Respiratory effort is even, unlabored, Respiratory pattern is regular. GI: Patient currently denies nausea, vomiting. Derm: Skin is intact, Skin is pink, warm \T\ dry. Musculoskeletal: Swelling present in right leg and left leg. 11:45 Reassessment: Patient appears in no apparent distress at this time. Patient and/or hb family updated on plan of care and expected duration. Pain level reassessed. Patient is alert, oriented x 3, equal unlabored respirations, skin warm/dry/pink. 12:49 Reassessment: Pt returned from US via wheelchair. hb 13:53 Reassessment: Patient appears in no apparent distress at this time. Patient and/or em family updated on plan of care and expected duration. Pain level reassessed. Patient is alert, oriented x 3, equal unlabored respirations, skin warm/dry/pink. 14:34 Reassessment: wheeled to CT via stretcher. em Vital Signs: 10:20 BP 134 / 80; Pulse 84; Resp 23; Temp 97.9(TE); Pulse Ox 100% on R/A; Weight 115.67 kg ss (R); Height 6 ft. 1 in. (185.42 cm); Pain 5/10; 11:53 BP 152 / 87; Pulse 77; Resp 14; Pulse Ox 99% on R/A; hb 13:53 BP 162 / 90; Pulse 79; Resp 18; Pulse Ox 99% on R/A; em 10:20 Body Mass Index 33.64 (115.67 kg, 185.42 cm) ED Course: 10:07 Patient arrived in ED. mr 10:14 EKG done, by ED staff, reviewed by Rogerio Ray MD. dh3 10:15 Bk Garcia, MYRON is Primary Nurse. em 10:16 Rogerio Ray MD is Attending Physician. kdr 10:20 Arm band placed on right wrist. ss 10:22 Triage completed. ss 10:25 Patient has correct armband on for positive identification. compliance monitor on. Pulse em ox on. NIBP on. 10:25 Initial lab(s) drawn, by me, sent to lab. Inserted saline lock: 20 gauge in right em antecubital area, using aseptic technique. Blood collected. Patient maintains SpO2 saturation greater than 95% on room air. 10:53 called [phone] at the [facility] to get a notification ID #/ notification id # is Luis Daniel edgar [id number]. 11:11 XRAY Chest (1 view) In Process Unspecified. EDMS 12:28 US Extremity Venous W Compression Ronaldo In Process Unspecified. EDMS 14:17 Prince Ma MD is Hospitalizing Provider. kdr 15:30 No provider procedures requiring assistance completed. Patient admitted, IV remains in em place. Administered Medications: 10:34 Drug: Lasix 60 mg Route: IVP; Site: right antecubital; em 12:37 Follow up: Response: No adverse reaction; Marked relief of symptoms em 14:43 Not Given (Physician Discretion): Lovenox 1 mg/kg Sub-Q once em 14:57 Drug: Lovenox 100 mg Route: Sub-Q; Site: right lower abdomen; em 15:20 Follow up: Response: No adverse reaction em Output: 12:05 Urine: 1000ml (Voided); Total: 1000ml. em 13:53 Urine: 800ml (Voided); Total: 1800ml. em Outcome: 14:18 Decision to Hospitalize by Provider. kdr 15:30 Admitted to Tele accompanied by tech, via wheelchair, room 209, with chart, Report em called to MYRON Ramirez 15:30 Condition: improved 15:30 Instructed on the need for admit, Demonstrated understanding of instructions. 15:46 Patient left the ED. hb Signatures: Dispatcher [employer] EDMS Rogerio Ray MD MD [facility] Jeannie Jiang Edgar, RN RN Latoya Russell RN RN Sofia Yu RN RN Nadia Moise [facility] Nisha Narvaez
--- NOTE | 2020-02-26 14:18 | EDPHYS ---
Physician Documentation [facility] Name: Tal Cornejo Age: 74 yrs Sex: Male : 1945 Arrival Date: 02/26/2020 Time: 10:07 Bed 4 Private MD: ED Physician Rogerio Ray HPI: 02/25 10:35 This 74 yrs old Black Male presents to ER via Wheelchair with complaints of Chest Pain, kdr Shortness Of Breath, Leg Swelling. 10:35 The patient or guardian reports chest pain that is located primarily in the substernal kdr area. Onset: gradually. 10:38 Onset: 2 day(s) ago. The pain does not radiate. Associated signs and symptoms: kdr Pertinent positives: lower extremity swelling, shortness of breath. The chest pain is described as aching, dull, a pressure. Duration: The patient or guardian reports multiple episodes, that are intermittent, that wax and wane, with no pattern. Severity of pain: At its worst the pain was mild in the emergency department the pain has improved mildly. The patient has experienced similar episodes in the past, a few times. The patient has not recently seen a physician. The patient has been non-compliant with his medications and is now having SOB and extensive lower extremity swelling. Historical: - Allergies: 10:20 No Known Allergies; ss - PMHx: 10:20 Diabetes - NIDDM; DVT; Gout; Hyperlipidemia; Hypertension; LYMPHODEMA; PE; ss - PSHx: 10:20 femur surgery; ss - Immunization history:: Adult Immunizations unknown, Flu vaccine is not up to date. - Social history:: Smoking status: Patient denies any tobacco usage or history of. ROS: 10:38 Constitutional: Negative for fever, chills, and weight loss, Eyes: Negative for injury, kdr pain, redness, and discharge, Neck: Negative for injury, pain, and swelling, Abdomen/GI: Negative for abdominal pain, nausea, vomiting, diarrhea, and constipation, Back: Negative for injury and pain, : Negative for injury, bleeding, discharge, and swelling, Skin: Negative for injury, rash, and discoloration, Neuro: Negative for headache, weakness, numbness, tingling, and seizure activity. Psych: Negative for depression, anxiety, suicide ideation, homicidal ideation, and hallucinations, Allergy/Immunology: Negative for hives, rash, and allergies, Endocrine: Negative for neck swelling, polydipsia, polyuria, polyphagia, and marked weight changes, Hematologic/Lymphatic: Negative for swollen nodes, abnormal bleeding, and unusual bruising. 10:38 Cardiovascular: Positive for chest pain, of the chest, edema, paroxysmal nocturnal dyspnea, Negative for orthopnea, palpitations. 10:38 Respiratory: Positive for shortness of breath, on exertion. Negative for dyspnea on exertion, shortness of breath. 10:38 Abdomen/GI: Positive for Negative for nausea, vomiting, and diarrhea, black/tarry stool, rectal pain, rectal bleeding, bowel incontinence. 10:38 MS/extremity: Positive for swelling, warmth. Exam: 10:38 Constitutional: This is a well developed, well nourished patient who is awake, alert, kdr and in no acute distress. Head/Face: Normocephalic, atraumatic. Eyes: Pupils equal round and reactive to light, extra-ocular motions intact. Lids and lashes normal. Conjunctiva and sclera are non-icteric and not injected. Cornea within normal limits. Periorbital areas with no swelling, redness, or edema. Neck: Trachea midline, no thyromegaly or masses palpated, and no cervical lymphadenopathy. Supple, full range of motion without nuchal rigidity, or vertebral point tenderness. No Meningismus. Chest/axilla: Normal chest wall appearance and motion. Nontender with no deformity. No lesions are appreciated. Cardiovascular: Regular rate and rhythm with a normal S1 and S2. No gallops, murmurs, or rubs. Normal PMI, no JVD. No pulse deficits. Abdomen/GI: Soft, non-tender, with normal bowel sounds. No distension or tympany. No guarding or rebound. No evidence of tenderness throughout. Back: No spinal tenderness. No costovertebral tenderness. Full range of motion. Skin: Warm, dry with normal turgor. Normal color with no rashes, no lesions, and no evidence of cellulitis. Neuro: Awake and alert, GCS 15, oriented to person, place, time, and situation. Cranial nerves II-XII grossly intact. Motor strength 5/5 in all extremities. Sensory grossly intact. Cerebellar exam normal. Normal gait. Psych: Awake, alert, with orientation to person, place and time. Behavior, mood, and affect are within normal limits. 10:38 Respiratory: mild respiratory distress is noted, Respirations: normal, Breath sounds: rales, that are mild, are scattered. 10:38 Musculoskeletal/extremity: ROM: no acute changes, Circulation is intact in all extremities. Sensation intact. Weight bearin:51 ECG was reviewed by the Attending Physician. kdr Vital Signs: 10:20 BP 134 / 80; Pulse 84; Resp 23; Temp 97.9(TE); Pulse Ox 100% on R/A; Weight 115.67 kg ss (R); Height 6 ft. 1 in. (185.42 cm); Pain 5/10; 11:53 BP 152 / 87; Pulse 77; Resp 14; Pulse Ox 99% on R/A; hb 13:53 BP 162 / 90; Pulse 79; Resp 18; Pulse Ox 99% on R/A; em 10:20 Body Mass Index 33.64 (115.67 kg, 185.42 cm) ss MDM: 10:38 Data reviewed: vital signs. Counseling: I had a detailed discussion with the patient kdr and/or guardian regarding: the historical points, exam findings, and any diagnostic results supporting the discharge/admit diagnosis, lab results, radiology results, the need for further work-up and treatment in the hospital. 10:49 ED course: The patient is [place] but wants to stay here. kdr 14:18 Patient medically screened. kdr 02/25 10:17 Order name: Basic Metabolic Panel; Complete Time: 12:35 kdr 02/25 10:17 Order name: CBC with Diff; Complete Time: 12:35 kdr 02/25 10:17 Order name: LFT's; Complete Time: 12:35 kdr 02/25 10:17 Order name: Magnesium; Complete Time: 12:35 kdr 02/25 10:17 Order name: NT PRO-BNP; Complete Time: 12:35 kdr 02/25 10:17 Order name: PT-INR; Complete Time: 12:35 kdr 02/25 10:17 Order name: Troponin (emerg Dept Use Only); Complete Time: 12:35 kdr 02/25 10:17 Order name: XRAY Chest (1 view); Complete Time: 12:35 kdr 02/25 10:58 Order name: Manual Differential; Complete Time: 12:35 EDMS 02/25 11:34 Order name: US Extremity Venous W Compression Ronaldo; Complete Time: 14:12 [facility] 02/25 14:16 Order name: D-Dimer [facility] 02/25 15:01 Order name: CT EDNC 02/25 10:17 Order name: EKG; Complete Time: 10:17 kdr 02/25 10:17 Order name: Cardiac monitoring; Complete Time: 10:21 [facility] 02/25 10:17 Order name: EKG - Nurse/Tech; Complete Time: 10:21 [facility] 02/25 10:17 Order name: IV Saline Lock; Complete Time: 10:35 kdr 02/25 10:17 Order name: Labs collected and sent; Complete Time: 10:35 kdr 02/25 10:17 Order name: O2 Per Protocol; Complete Time: 10:35 kdr 02/25 10:17 Order name: O2 Sat Monitoring; Complete Time: 10:35 kdr EC:51 Rate is 83 beats/min. Rhythm is regular, Sinus Rhythm with Occasional PVCs. QRS Colome is kdr Normal. SD interval is normal. QRS interval is normal. QT interval is normal. Clinical impression: NSR w/ Non-specific ST/T Changes. Administered Medications: 10:34 Drug: Lasix 60 mg Route: IVP; Site: right antecubital; em 12:37 Follow up: Response: No adverse reaction; Marked relief of symptoms em 14:43 Not Given (Physician Discretion): Lovenox 1 mg/kg Sub-Q once em 14:57 Drug: Lovenox 100 mg Route: Sub-Q; Site: right lower abdomen; em 15:20 Follow up: Response: No adverse reaction em Disposition: 02/26/20 14:18 Hospitalization ordered by Prince Anil for Observation. Preliminary diagnosis are Chest pain, unspecified, Right sided heart failure. - Bed requested for Telemetry/MedSurg (observation). - Status is Observation. hb - Condition is Fair. - Problem is new. - Symptoms have improved. Signatures: Dispatcher [employer] Rogerio Parisi MD MD [facility] Bk Garcia, RN RN em Latoya Russell RN RN Sofia Yu RN RN Nisha Narvaez Corrections: (The following items were deleted from the chart) 14:39 14:18 Hospitalization Ordered by Prince Anil CAMARGO for Observation. Preliminary eb diagnosis is Chest pain, unspecified; Right sided heart failure. Bed requested for Telemetry/MedSurg (observation). Status is Observation. Condition is Fair. Problem is new. Symptoms have improved. kdr 15:46 14:39 02/26/2020 14:18 Hospitalization Ordered by Prince Anil CAMARGO for Observation. hb Preliminary diagnosis is Chest pain, unspecified; Right sided heart failure. Bed requested for Telemetry/MedSurg (observation). Status is Observation. Condition is Fair. Problem is new. Symptoms have improved. eb
[2020-02-26] MEDS ORDERED: ENOXAPARIN 100 MG/ML SYR SQ ONE (14:59)
--- NOTE | 2020-02-26 15:00 | RAD REPORT ---
EXAM DESCRIPTION: CT - Chest For Pe Angio - 02/26/2020 2:49 pm CLINICAL HISTORY: Chest pain COMPARISON: 2019 TECHNIQUE: Dynamically enhanced axial 3 mm thick images of the chest were obtained during administra tion of <100> mL Isovue 370 IV contrast. Coronal and oblique reconstruction images were generated and reviewed. Exam utilizes a protocol for optimal evaluation of pulmonary arterial tree. Maximum intensity projections 3D imaging was utilized All CT scans are performed using dose optimization technique as appropriate and may include automated exposure control or mA/KV adjustment according to patient size. FINDINGS: A pulmonary embolus is not seen. Ascending thoracic aorta has an AP diameter 4.1 centimeters. The heart is enlarged A pleural effusion is not seen. A pericardial effusion is not seen. A lung consolidation is not present. IMPRESSION: Negative for a pulmonary embolism.
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
[2020-02-26] MEDS ORDERED: ASPIRIN 81 MG CHEWABLE TABLET PO ONE (17:00)
[2020-02-26 19:33] LABS: Urine Appearance CLEAR; Urine Bilirubin NEGATIVE (NEG); Urine Blood NEGATIVE (NEG); Urine Color YELLOW; Urine Glucose NEGATIVE (NEG); Urine Protein NEGATIVE (NEG); Urine Specific Gravity 1.015 (1.005-1.030); Urine Urobilinogen 0.2 mg/dL (0.2-1.0)
[2020-02-26 20:01] LABS: Urine Microscopic Reflex ORDER UMIC
[2020-02-26] MEDS: METOPROLOL TAR 25 MG TAB PO SCH (20:15)
[2020-02-26] MEDS: ATORVASTATIN 40 MG TAB PO SCH (20:15)
[2020-02-26 20:20] LABS: Urine Bacteria <20 /HPF (NONE SEEN); Urine Culture Reflex Order NOT NEEDED; Urine RBC <5 /HPF (NONE SEEN)
[2020-02-26] MEDS ORDERED: PNEUMOCOCCAL VACCINE 0.5 ML IMVAC ONE (21:00)
[2020-02-26] MEDS ORDERED: INFLUENZA VACCINE (for 3y+) 0.5 ML DOSE IMVAC ONE (21:00)
[2020-02-27] MEDS: RIVAROXABAN 20 MG TABLET PO SCH (08:09)
[2020-02-27] MEDS: METOPROLOL TAR 25 MG TAB PO SCH ×2 (08:09→20:19)
[2020-02-27] MEDS: CYANOCOBALAMIN 1,000 MCG TAB PO SCH (08:09)
[2020-02-27] MEDS: lisinopriL 10 MG TAB PO SCH (08:09)
[2020-02-27] MEDS ORDERED: RIVAROXABAN 20 MG TABLET PO SCH (09:00)
[2020-02-27] MEDS ORDERED: FUROSEMIDE 40 MG/4 ML VIAL IV ONE (09:08)
--- NOTE | 2020-02-27 09:59 | P.PN ---
Subjective Date of Service: 02/27/20 Chief Complaint: chest pain Subjective: Improving (Patient's lower extremity edema is improving with diuresis. He will require at least 1 more day of diuresis.) Physical Examination - Vital Signs Temperature: 98.1 F Blood Pressure: 135/7 Pulse: 70 Respirations: 18 Pulse Ox (%): 98 - Physical Exam General: Cooperative, Mild distress, Other (lethargic) HEENT: Atraumatic, Normocephalic, EOMI Neck: Supple Respiratory: Clear to auscultation bilaterally, Normal air movement Cardiovascular: Regular rate/rhythm, Normal S1 S2, Edema, Systolic murmur, Diastolic murmur Gastrointestinal: Normal bowel sounds, Non-distended, No tenderness, Other (ventral hernia) Musculoskeletal: No clubbing, No contractures, Swelling, Erythema, Tenderness, Warmth Neurological: Normal speech, Sensation intact, Normal affect - Studies Laboratory Data (last 24 hrs) 02/26/20 10:25: PT 12.4, INR 1.05 02/26/20 10:25: WBC 6.8, Hgb 11.4 L, Hct 37.0 L, Plt Count 182 02/26/20 10:25: Sodium 143, Potassium 4.0, BUN 12, Creatinine 1.50 H, Glucose 95, Magnesium 2.1, Total Bilirubin 0.5, AST 15, ALT 14, Alkaline Phosphatase 102 Assessment & Plan - Problems (Diagnosis) (1) Chest pain Onset Date: 11/01/14 Current Visit: No Status: Acute (2) Diabetic neuropathy Onset Date: 04/24/17 Current Visit: No Status: Acute (3) Generalized weakness Onset Date: 10/02/16 Current Visit: No Status: Acute (4) Hyperlipidemia Onset Date: 04/24/17 Current Visit: No Status: Acute (5) Lower extremity edema Onset Date: 04/10/16 Current Visit: No Status: Acute (6) Chronic deep vein thrombosis of right lower extremity Onset Date: 12/14/14 Current Visit: No Status: Chronic Qualifiers: Affected thrombotic vein of extremity: unspecified vein of extremity Qualified Code(s): I82.501 - Chronic embolism and thrombosis of unspecified deep veins of right lower extremity (7) DM2 (diabetes mellitus, type 2) Onset Date: 05/31/15 Current Visit: No Status: Chronic Qualifiers: Diabetes mellitus filler wiper insulin use: with custodial use Diabetes mellitus complication status: without complication Qualified Code(s): E11.9 - Type 2 diabetes mellitus without complications; Z79.4 - prison (current) use of insulin (8) HTN (hypertension) Onset Date: 05/31/15 Current Visit: No Status: Chronic Qualifiers: Hypertension type: essential hypertension Qualified Code(s): I10 - Essential (primary) hypertension (9) Obesity (BMI 35.0-39.9 without comorbidity) Current Visit: No Status: Chronic (10) Moderate to severe aortic valve regurgitation Current Visit: Yes Status: Acute (11) Moderate aortic stenosis by prior echocardiogram Current Visit: Yes Status: Acute Physician Review Additional Text: Assessment Patient is a 74 year old homeless male with HTN, HLD, Type II diabetes mellitus, chronic lower extremity DVTs s/p IVC filter, non-compliant on systemic anticoagulation. He presents with pleuritic/positional chest pain, shortness of breath and lower extremity edema. ACS has been ruled out. His EKG showed evidence of PVC and LVH. Other cardiothoracic processes such as aortic dissection, PNA and PE were also ruled out. Chest pain Shortness of breath CKD stage III Chronic DVTs s/p IVC filter, on systemic AC Hypertension HLD Type II diabetes mellitus PLAN: Change to inpatient Continue IV diuresis with lasix APPLY CRIS wrap to both lower extremities Continue ASA, high intensity statin, and beta blockers Echocardiogram and possible stress test on Saturday
[2020-02-27 10:17] LABS: Potassium 3.8 mmol/L (3.5-5.1)
[2020-02-27] MEDS: ASPIRIN EC 81 MG TAB PO SCH (11:23)
--- NOTE | 2020-02-27 13:19 | CON ---
Date of Consultation: 02/27/2020 Reason For Consultation: Chest pain. History Of Present Illness: This is a 74-year-old male with history of hypertension, diabetes, dysli pidemia, and DVT, status post recent IVC filter placement presented with chest pain, shortness of tj ath, bilateral lower extremity swelling, left-sided chest pain when he takes deep breath and cough. No fever. No nausea, vomiting, or diarrhea. The patient reported having a heart catheterization rec ently that was normal. However, he is not sure. Past Medical History: As outlined above plus aortic valve stenosis. Medications: Refer to reconciliation sheet for detailed list. Allergies: NO KNOWN DRUG ALLERGIES. Family History: No premature coronary artery disease or cancer. Social History: Does not smoke or drink. Does not use any drugs. Review of Systems: All systems reviewed were negative except for mentioned in the HPI. Physical Examination: Vital Signs: Temperature is 98.1, pulse 70, breathing 18, blood pressure 135/79, saturating 98% on r oom air. General: Pleasant elderly male, in no distress. Head and Neck: Pupils are equal, reactive to light. Intact eye movements. No JVD. No cervical lym phadenopathy. Neck is supple. Thyroid not enlarged. Lungs: Clear to auscultation bilaterally. No rhonchi, rales, or crackles. No accessory muscle use. Heart: Irregular with aortic systolic ejection murmur. Abdomen: Soft, nontender. Bowel sounds positive. No organomegaly. No masses or hernias. No rigid ity or rebound. Extremities: No edema, clubbing, or cyanosis. Intact pulses. Skin: No rashes noted. Neurologic: Alert, awake, oriented x3. No acute focal deficits appreciated. Investigations: Sodium 142, creatinine 1.51. BNP is 1658. Troponin is less than 0.02 x2. CTA ches t showed no PE. Assessment And Plan: Chest pain. Had a nuclear stress test about a year ago that was negative and t hen the same time had an echocardiogram showed that there is a moderate to severe aortic regurgitatio n and at least moderate aortic valve stenosis. Recommendations: Chest pain. Recommend nuclear stress test on Saturday and if positive, then coronary angiogram. I also recommended a repeat echocardiogram to evaluate aortic valve to be done o n Saturday morning. Further recommendations based on the echo results and the stress test. Thank you for the consultation. SR/MODL Voice ID: [id number] Report ID: [id number]
[2020-02-27] MEDS: ATORVASTATIN 40 MG TAB PO SCH (20:19)
[2020-02-28 07:48] LABS: Potassium 4.1 mmol/L (3.5-5.1)
[2020-02-28] MEDS: CYANOCOBALAMIN 1,000 MCG TAB PO SCH (08:14)
[2020-02-28] MEDS: lisinopriL 10 MG TAB PO SCH (08:14)
[2020-02-28] MEDS: RIVAROXABAN 20 MG TABLET PO SCH (08:14)
[2020-02-28] MEDS: ASPIRIN EC 81 MG TAB PO SCH (08:14)
[2020-02-28] MEDS: METOPROLOL TAR 25 MG TAB PO SCH ×2 (08:14→21:57)
[2020-02-28] MEDS ORDERED: FUROSEMIDE 40 MG/4 ML VIAL IV ONE (08:27)
--- NOTE | 2020-02-28 08:27 | P.PN ---
Subjective Date of Service: 02/28/20 Chief Complaint: chest pain Subjective: Improving (Patient is improving with diuresis. He is feeling better. He is staying one more day for an echocardiogram and nuclear stress test tomorrow.) Physical Examination - Vital Signs Temperature: 97.0 F Blood Pressure: 129/71 Pulse: 66 Respirations: 18 Pulse Ox (%): 97 - Physical Exam General: Cooperative, Mild distress, Obese HEENT: Atraumatic, Normocephalic, EOMI Neck: Supple Respiratory: Clear to auscultation bilaterally, Normal air movement Cardiovascular: Regular rate/rhythm, Normal S1 S2, Other (1+ pitting edema of both lower extremities), Edema, Systolic murmur, Diastolic murmur Gastrointestinal: Normal bowel sounds, Soft and benign, Non-distended, No tenderness, Other (ventral hernia) Integumentary: No rashes, No breakdown, No warmth, No cyanosis, Tenderness/swelling, Erythema Neurological: Normal speech, Sensation intact, Normal affect, Other (stasis dermatitis) - Studies Laboratory Data (last 24 hrs) 02/27/20 08:49: Sodium 142, Potassium 3.8, BUN 15, Creatinine 1.51 H, Glucose 113 H Assessment & Plan - Problems (Diagnosis) (1) Chest pain Onset Date: 11/01/14 Current Visit: No Status: Acute (2) Diabetic neuropathy Onset Date: 04/24/17 Current Visit: No Status: Acute (3) Generalized weakness Onset Date: 10/02/16 Current Visit: No Status: Acute (4) Hyperlipidemia Onset Date: 04/24/17 Current Visit: No Status: Acute (5) Lower extremity edema Onset Date: 04/10/16 Current Visit: No Status: Acute (6) Chronic deep vein thrombosis of right lower extremity Onset Date: 12/14/14 Current Visit: No Status: Chronic Qualifiers: Affected thrombotic vein of extremity: unspecified vein of extremity Qualified Code(s): I82.501 - Chronic embolism and thrombosis of unspecified deep veins of right lower extremity (7) DM2 (diabetes mellitus, type 2) Onset Date: 05/31/15 Current Visit: No Status: Chronic Qualifiers: Diabetes mellitus [facility] insulin use: with [facility] use Diabetes mellitus complication status: without complication Qualified Code(s): E11.9 - Type 2 diabetes mellitus without complications; Z79.4 - correction (current) use of insulin (8) HTN (hypertension) Onset Date: 05/31/15 Current Visit: No Status: Chronic Qualifiers: Hypertension type: essential hypertension Qualified Code(s): I10 - Essential (primary) hypertension (9) Obesity (BMI 35.0-39.9 without comorbidity) Current Visit: No Status: Chronic (10) Moderate to severe aortic valve regurgitation Current Visit: Yes Status: Acute (11) Moderate aortic stenosis by prior echocardiogram Current Visit: Yes Status: Acute Physician Review Additional Text: Assessment Patient is a 74 year old homeless male with HTN, HLD, Type II diabetes mellitus, chronic lower extremity DVTs s/p IVC filter, non-compliant on systemic anticoagulation. He presents with pleuritic/positional chest pain, shortness of breath and lower extremity edema. ACS has been ruled out. His EKG showed evidence of PVC and LVH. Other cardiothoracic processes such as aortic dissecti on, PNA and PE were also ruled out. Chest pain Shortness of breath CKD stage III Chronic DVTs s/p IVC filter, on systemic AC Hypertension HLD Type II diabetes mellitus PLAN: Will give another dose of lasix challenge, 40 mg IV x 1 Continue applying CRIS wrap to both lower extremities Continue ASA, high intensity statin, and beta blockers Echocardiogram and nuclear stress test on Saturday Cardiology has been consulted
[2020-02-28 16:10] VITALS: BMI 32.5
[2020-02-28] MEDS: ATORVASTATIN 40 MG TAB PO SCH (21:57)
[2020-02-29] MEDS: lisinopriL 10 MG TAB PO SCH (08:06)
[2020-02-29] MEDS: ASPIRIN EC 81 MG TAB PO SCH (08:06)
[2020-02-29] MEDS: CYANOCOBALAMIN 1,000 MCG TAB PO SCH (08:07)
[2020-02-29] MEDS ORDERED: REGADENOSON 0.4 MG/5 ML SYR IV ONE (08:36)
[2020-02-29] MEDS: METOPROLOL TAR 25 MG TAB PO SCH ×2 (12:48→20:51)
--- NOTE | 2020-02-29 13:24 | RAD REPORT ---
EXAM DESCRIPTION: NM - Rest Stress Cardiac Imaging - 02/29/2020 12:53 pm CLINICAL HISTORY: Chest pain COMPARISON: March 2019 TECHNIQUE: The patient was administered approximately 10 mCi of Tc 99m Sestamibi prior to resting SP ECT imaging of the heart. The patient was then administered approximately 30 mCi of Tc 99m Sestamibi following exercise or pharmacologic stress. Multiplanar SPECT images were reviewed. FINDINGS: The end diastolic volume is 208 ml, the end systolic volume is 121 ml, and the ejection fr action is 42 %. Ventricular volumes and ejection fraction very similar to the 2019 study. No stress-induced ischemic changes are identified. There is a large fixed defect involving the inferi or wall and partially involving the lateral wall from base to apex. No change between rest and stress imaging and no clear change since 2019. This could be a stable large area of scarring, diaphragmatic attenuation artifact due to left ventriculomegaly or a combination. No other areas of possible scar ring. IMPRESSION: No stress-induced ischemic change. Above detailed findings are stable from March 2019 . Enlarged end-diastolic volume of 208 milliliters was calculated with a 42% ejection fraction. These a re values very similar to March 2019.
--- NOTE | 2020-02-29 17:12 | P.DS ---
Admission Date: 02/27/20 Discharge Date: 02/29/20 Disposition: ROUTINE DISCHARGE Discharge Condition: FAIR Reason for Admission: chest pain Consultations: Cardiology-Dr. Garcia Brief History of Present Illness: 74-year-old gentleman, a with a history of DVT, dyslipidemia and hypertension, known history of moderate aortic stenosis and regurgitation presented to the emergency department with the complaint of chest pain. His initial troponin was negative. CTA thorax done was negative for pulmonary emboli. Patient was hospitalized for chest pain rule out. Hospital Course: Patient admitted to the medical floor. Troponin trended came back negative. Patient was seen in evaluated by cardiology-Dr. Garcia would recommend a stress test and echocardiogram. Nuclear stress test done did not show any ischemia. Dr Garcia reports severe aortic stenosis by echocardiogram and recommend outpatient evaluation for TAVR. ACS has been ruled out. Patient to follow with [facility] and [facility] for evaluation for TAVR. His home medications have been resumed on discharge. Vital Signs/Physical Exam: Temp Pulse Resp BP Pulse Ox 98 F 71 18 131/63 98 02/29/20 16:00 02/29/20 16:00 02/29/20 16:00 02/29/20 16:00 02/29/20 16:00 General: Alert, In no apparent distress HEENT: Mucous membr. moist/pink Neck: Supple, JVD not distended Respiratory: Clear to auscultation bilaterally, Normal air movement Cardiovascular: Regular rate/rhythm, Normal S1 S2 Gastrointestinal: Normal bowel sounds, Soft and benign, No tenderness Neurological: Other (Nonfocal.) Laboratory Data at Discharge: WBC 6.8 K/uL (4.3-10.9) 02/26/20 10:25 Hgb 11.4 g/dL (13.6-17.9) L 02/26/20 10:25 Hct 37.0 % (39.6-49.0) L 02/26/20 10:25 Plt Count 182 K/uL (152-406) 02/26/20 10:25 PT 12.4 SECONDS (9.5-12.5) 02/26/20 10:25 INR 1.05 02/26/20 10:25 Sodium 144 mmol/L (136-145) 02/28/20 07:10 Potassium 4.1 mmol/L (3.5-5.1) 02/28/20 07:10 BUN 23 mg/dL (7-18) H 02/28/20 07:10 Creatinine 1.51 mg/dL (0.55-1.3) H 02/28/20 07:10 Glucose 106 mg/dL (74-106) 02/28/20 07:10 Magnesium 2.4 mg/dL (1.8-2.4) 02/28/20 16:53 Total Bilirubin 0.5 mg/dL (0.2-1.0) 02/26/20 10:25 AST 15 U/L (15-37) 02/26/20 10:25 ALT 14 U/L (12-78) 02/26/20 10:25 Alkaline Phosphatase 102 U/L (45-117) 02/26/20 10:25 Troponin I < 0.02 ng/mL (0.0-0.045) 02/26/20 18:46 Triglycerides 50 mg/dL (<150) 02/27/20 05:21 Cholesterol 194 mg/dL (<200) 02/27/20 05:21 HDL Cholesterol 64 mg/dL (40-60) H 02/27/20 05:21 Cholesterol/HDL Ratio 3.03 02/27/20 05:21 Home Medications: Rivaroxaban [Xarelto] 20 mg PO DAILY #30 tablet 04/26/17 Metformin HCl [Glucophage*] 500 mg PO DAILY WITH BREAKFAST 04/06/19 Atorvastatin Calcium [Lipitor] 40 mg PO BEDTIME #30 tab 04/08/19 Cyanocobalamin (Vitamin B-12) [Vitamin B-12] 1,000 mcg PO DAILY #90 tablet 04/08/19 Metoprolol Tartrate [Lopressor*] 25 mg PO BID #60 tab 04/08/19 Multivitamin/Iron/Folic Acid [Multi-Day Plus Iron Tablet] 1 each PO DAILY #90 tablet 04/08/19 lisinopriL [Prinivil*] 10 mg PO DAILY #30 tab 04/08/19 Diet: AHA Activity: Ad fabiano Followup: NONE,NONE [Primary Care Provider] - Kun Garcia MD [ACTIVE - CAN ADMIT] - 1 Week Time spent managing pt's care (in minutes): 35
--- NOTE | 2020-02-29 17:31 | P.PN ---
Subjective Date of Service: 02/29/20 Chief Complaint: chest pain Patient has no complain. Nuclear stress test done reported no stress-induced ischemia. Cardiology report CVA aortic stenosis on the echocardiogram. Physical Examination - Vital Signs Temperature: 98 F Blood Pressure: 131/63 Pulse: 71 Respirations: 18 Pulse Ox (%): 98 - Physical Exam General: Alert, In no apparent distress HEENT: Mucous membr. moist/pink Neck: Supple, JVD not distended Respiratory: Clear to auscultation bilaterally, Normal air movement Cardiovascular: Regular rate/rhythm, Normal S1 S2, Abnormal S3 Gastrointestinal: Normal bowel sounds, Soft and benign, No tenderness Musculoskeletal: Swelling (Bilateral lower extremity), Erythema (Bilateral lower ext) Integumentary: No cyanosis Neurological: Normal strength at 5/5 x4 extr, Cranial nerves 3-12 intact - Studies Microbiology Data (last 24 hrs): 02/26/20 17:50 Nasopharnyx Coronavirus COVID-19 PCR - Final Assessment And Plan - Current Problems (Diagnosis) (1) Aortic stenosis Current Visit: Yes Status: Acute (2) Chronic kidney disease, stage 3 Current Visit: Yes Status: Acute (3) Moderate to severe aortic valve regurgitation Current Visit: Yes Status: Acute (4) Chronic deep vein thrombosis of right lower extremity Onset Date: 12/14/14 Current Visit: No Status: Chronic Qualifiers: Affected thrombotic vein of extremity: unspecified vein of extremity Qualified Code(s): I82.501 - Chronic embolism and thrombosis of unspecified deep veins of right lower extremity (5) DM2 (diabetes mellitus, type 2) Onset Date: 05/31/15 Current Visit: No Status: Chronic Qualifiers: Diabetes mellitus 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 Garcia. Patient is homeless and states he will only have penitentiary tomorrow morning. Continue current medications. D/C in am Cardiology as an outpatient. Physician Review Additional Text: Assessment Patient is a 74 year old homeless male with HTN, HLD, Type II diabetes mellitus, chronic lower extremity DVTs s/p IVC filter, non-compliant on systemic anticoagulation. He presents with pleuritic/positional chest pain, shortness of breath and lower extremity edema. ACS has been ruled out. His EKG showed evidence of PVC and LVH. Other cardiothoracic processes such as aortic dissection, PNA and PE were also ruled out. Chest pain Shortness of breath CKD stage III Chronic DVTs s/p IVC filter, on systemic AC Hypertension HLD Type II diabetes mellitus PLAN: Will give another dose of lasix challenge, 40 mg IV x 1 Continue applying CRIS wrap to both lower extremities Continue ASA, high intensity statin, and beta blockers Echocardiogram and nuclear stress test on Saturday Cardiology has been consulted
[2020-02-29] MEDS: RIVAROXABAN 20 MG TABLET PO SCH (17:55)
[2020-02-29] MEDS: ATORVASTATIN 40 MG TAB PO SCH (20:51)
[2020-03-01 04:51] VITALS: TEMP 97.8
[2020-03-01] MEDS: RIVAROXABAN 20 MG TABLET PO SCH (08:07)
[2020-03-01] MEDS: CYANOCOBALAMIN 1,000 MCG TAB PO SCH (08:07)
[2020-03-01] MEDS: lisinopriL 10 MG TAB PO SCH (08:07)
[2020-03-01] MEDS: ASPIRIN EC 81 MG TAB PO SCH (08:07)
[2020-03-01 08:08] VITALS: BP 146/73
[2020-03-01] MEDS: METOPROLOL TAR 25 MG TAB PO SCH (08:08)
--- NOTE | 2020-03-01 08:15 | ECHO ---
HEIGHT: 6 ft 1 in WEIGHT: 248 lb 8 oz DATE OF STUDY: 02/29/[address]: Prince Diamond Ma MD 2-DIMENSIONAL: YES M.MODE: YES DOPPLER: YES COLOR FLOW: YES TDS: PORTABLE: DEFINITY: BUBBLE STUDY: DIAGNOSIS: CHEST PAIN CARDIAC HISTORY: CATHERIZATION: SURGERY: PROSTHETIC VALVE: PACEMAKER: MEASUREMENTS (cm) DIASTOLIC (NORMALS) SYSTOLIC (NORMALS) IVSd 1.1 (0.6-1.2) LA Diam 5.4 (1.9-4.0) LVEF 54% LVIDd 4.3 (3.5-5.7) LVIDs 3.1 (2.0-3.5) %FS 28% LVPWd 1.2 (0.6-1.2) Ao Diam 2.8 (2.0-3.7) 2 DIMENSIONAL ASSESSMENT: RIGHT ATRIUM: NORMAL LEFT ATRIUM: NORMAL RIGHT VENTRICLE: NORMAL LEFT VENTRICLE: NORMAL TRICUSPID VALVE: NORMAL MITRAL VALVE: NORMAL PULMONIC VALVE: NORMAL AORTIC VALVE: MODERATE TO SEVERE AORTIC STENOSIS, MODERATE AORTIC INSUFFIENCY PERICARDIAL EFFUSION: NONE AORTIC ROOT: NORMAL LEFT VENTRICULAR WALL MOTION: NORMAL DOPPLER/COLOR FLOW: SEE BELOW COMMENTS: NORMAL LEFT VENTRICULAR EJECTION FRACTION 55-60% WITH NORMAL WALL MOTION. MODERATE TO SEVERE AORTIC STENOSIS. MODERATE AORTIC INSUFFIENCY. TECHNOLOGIST: MARISELA PEREZ
--- NOTE | 2020-03-01 08:51 | TREADPHA ---
DX: CHEST PAIN Date of Study: 02/26/2020 Ht: 6' 1 " Wt: 248 lb 8 oz Consulting Physician: JOEY MEDICATIONS: LASIX, ASPIRIN HISTORY: HYPERTENSION, NON-INSULIN DEPENDENT DIABETES MELLITUS, PREVIOUS CATH, DEEP VEIN THROMBOSIS, HIGH CHOLESTEROL, PE PHYSICIAL EXAMINATION: RESTING B.P.: RESTING H.R.: RESTING EKG: WITHIN NORMAL LIMITS PROTOCOL: PHARMACOLOGIC EXERCISE TIME: B.P. AT [facility] STRESS: IMPRESSION: NO ST AND T WAVE CHANGES WITH LEXISCAN. PREMATURE VENTRICULAR COMPLEXES NOTED. NO ELECTROCARDIOGRAM CHANGES IF ISCHEMIA.
[2020-03-01 09:43] VITALS: O2SAT 98
--- NOTE | 2020-03-01 20:21 | P.DS ---
Admission Date: 02/27/20 Discharge Date: 03/01/20 Disposition: ROUTINE DISCHARGE Discharge Condition: FAIR Reason for Admission: chest pain Consultations: Cardiology-Dr. Garcia Procedures: CXR (02/25): The lungs are grossly clear. The heart is upper limit normal in size with a tortuous thoracic aorta CTA Chest (02/25): Negative for a pulmonary embolism. Extremity Venous U/S (02/25): Chronic thrombus is suspected in both popliteal veins. No acute DVT is evident. Pharmacological stress test (02/28): NO ST AND T WAVE CHANGES WITH LEXISCAN. PREMATURE VENTRICULAR COMPLEXES NOTED. NO ELECTROCARDIOGRAM CHANGES IF ISCHEMIA. Nuclear stress test (02/28): The end diastolic volume is 208 ml, the end systolic volume is 121 ml, and the ejection fraction is 42 %. Ventricular volumes and ejection fraction very similar to the 2019 study. No stress-induced ischemic changes are identified. There is a large fixed defect involving the inferior wall and partially involving the lateral wall from base to apex. No change between rest and stress imaging and no clear change since 2019. This could be a stable large area of scarring, diaphragmatic attenuation artifact due to left ventriculomegaly or a combination. No other areas of possible scarring. TTE (02/28): LVEF: 55-60%, normal wall motoin, mod-severe AoS. 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 His initial troponin was negative. CTA thorax done was negative for pulmonary emboli. Patient was hospitalized for ACS rule out. Hospital Course: Patient was admitted to the medical floor. Troponin was trended and came back negative. Patient was seen and evaluated by cardiology-Dr. Garcia, who recommend a stress test and echocardiogram. Nuclear stress test done did not s how any ischemia. Dr Garcia reported severe aortic stenosis by echocardiogram and recommended outpatient evaluation for TAVR. ACS has been ruled out. [facility]. His home medications have been resumed on discharge. His discharge was delayed due being homeless and not having any prison / place to stay until the following morning. Vital Signs/Physical Exam: Temp Pulse Resp BP Pulse Ox 97.8 F 63 17 146/73 H 98 03/01/20 08:00 03/01/20 08:08 03/01/20 08:00 03/01/20 08:08 03/01/20 08:00 General: Alert, In no apparent distress, Oriented x3 HEENT: Mucous membr. moist/pink, Sclerae nonicteric Respiratory: Clear to auscultation bilaterally Cardiovascular: No edema, Regular rate/rhythm, Systolic murmur (4/6) Gastrointestinal: Soft and benign, Non-distended, No tenderness Musculoskeletal: No tenderness Integumentary: No rashes Neurological: Normal speech, Normal affect Laboratory Data at Discharge: WBC 6.8 K/uL (4.3-10.9) 02/26/20 10:25 Hgb 11.4 g/dL (13.6-17.9) L 02/26/20 10:25 Hct 37.0 % (39.6-49.0) L 02/26/20 10:25 Plt Count 182 K/uL (152-406) 02/26/20 10:25 PT 12.4 SECONDS (9.5-12.5) 02/26/20 10:25 INR 1.05 02/26/20 10:25 Sodium 144 mmol/L (136-145) 02/28/20 07:10 Potassium 4.1 mmol/L (3.5-5.1) 02/28/20 07:10 BUN 23 mg/dL (7-18) H 02/28/20 07:10 Creatinine 1.51 mg/dL (0.55-1.3) H 02/28/20 07:10 Glucose 106 mg/dL (74-106) 02/28/20 07:10 Magnesium 2.4 mg/dL (1.8-2.4) 02/28/20 16:53 Total Bilirubin 0.5 mg/dL (0.2-1.0) 02/26/20 10:25 AST 15 U/L (15-37) 02/26/20 10:25 ALT 14 U/L (12-78) 02/26/20 10:25 Alkaline Phosphatase 102 U/L (45-117) 02/26/20 10:25 Troponin I < 0.02 ng/mL (0.0-0.045) 02/26/20 18:46 Triglycerides 50 mg/dL (<150) 02/27/20 05:21 Cholesterol 194 mg/dL (<200) 02/27/20 05:21 HDL Cholesterol 64 mg/dL (40-60) H 02/27/20 05:21 Cholesterol/HDL Ratio 3.03 02/27/20 05:21 Home Medications: Rivaroxaban [Xarelto] 20 mg PO DAILY #30 tablet 04/26/17 Metformin HCl [Glucophage*] 500 mg PO DAILY WITH BREAKFAST 04/06/19 Atorvastatin Calcium [Lipitor] 40 mg PO BEDTIME #30 tab 04/08/19 Cyanocobalamin (Vitamin B-12) [Vitamin B-12] 1,000 mcg PO DAILY #90 tablet 04/08/19 Metoprolol Tartrate [Lopressor*] 25 mg PO BID #60 tab 04/08/19 Multivitamin/Iron/Folic Acid [Multi-Day Plus Iron Tablet] 1 each PO DAILY #90 tablet 04/08/19 lisinopriL [Prinivil*] 10 mg PO DAILY #30 tab 04/08/19 Patient Discharge Instructions: follow up with PCP within 1 week. follow up with Dr. Garcia (Cardiology) for aortic stenosis - to consider replacement Diet: AHA Activity: Ad fabiano Followup: NONE,NONE [Primary Care Provider] - Kun Garcia MD [ACTIVE - CAN ADMIT] - 1 Week (Call to make an appointment. ) Time spent managing pt's care (in minutes): 35
== END 2020-03-01 09:21 | disposition home or self-care (01) | DRG 306 ==
LOC: ER 10:05 → ERHOLD 14:16 → 2ND 15:15 → OBSVTOIN 02-27 09:53
PROVIDERS: ADMIT Internal Medicine; ATTEND Hospitalist
DX: I35.0 Nonrheumatic aortic (valve) stenosis (principal); I50.23 Acute on chronic systolic (congestive) heart failure; I13.0 Hypertensive heart and chronic kidney disease with heart failure and stage 1 through stage 4 chronic kidney disease, or unspecified chronic kidney disease; I82.501 Chronic embolism and thrombosis of unspecified deep veins of right lower extremity; N18.30 Chronic kidney disease, stage 3 unspecified; E11.22 Type 2 diabetes mellitus with diabetic chronic kidney disease; E11.40 Type 2 diabetes mellitus with diabetic neuropathy, unspecified; E78.5 Hyperlipidemia, unspecified; I35.1 Nonrheumatic aortic (valve) insufficiency; I49.3 Ventricular premature depolarization; M10.9 Gout, unspecified; E66.9 Obesity, unspecified; Z68.35 Body mass index [BMI] 35.0-35.9, adult; Z91.14 Patient's other noncompliance with medication regimen; Z86.711 Personal history of pulmonary embolism; Z59.0 Homelessness; Z79.01 Long term (current) use of anticoagulants; Z79.899 Other long term (current) drug therapy; Z79.84 Long term (current) use of oral hypoglycemic drugs; Z90.49 Acquired absence of other specified parts of digestive tract; Z20.828 Contact with and (suspected) exposure to other viral communicable diseases
CPT/HCPCS: 36415; 71045; 71275; 78452; 80048; 80061; 80076; 81003; 81015; 82947; 83036; 83735; 83880; 84484; 85025; 85379; 85610; 93005; 93017; 93306; 93970; 96372; 96374; 99285; A9500; G0378; J1650; J1940; J2785; Q9967; U0002

== ENCOUNTER 2020-06-25 11:36 | Emergency (ER) | payer OTHER ==
--- OUTSIDE RECORDS SUMMARY | 2020-06-25 11:40 | XMS REPORT | Continuity of Care Document ---
:1945 Author Organization [facility] t Address [address] [place] [address] Care Team Providers Name Role Phone Rick Koch Attending Clinician SEMAJ Attending Clinician Unavailable Alexander Vernon Attending Clinician Rick Koch Admitting Clinician TEMPLE Admitting Clinician Unavailable Problems Condition Condition Condition Status Onset Resolution Last Treating Co mments Source Name Details Category Date Date Treatment Clinician Date BREATHING Diagnosis Active 2019-11-28 Memoria PROBLEM 11-27 23:36:00 l 00:00: [place] BREATHING 00 PROBLEM Active 11/28/2019 [facility] SUPRAVENTR Diagnosis Active 2020-01-19 Memoria ICULAR 11-27 13:03:00 l TACHYCARDI 00:00: Brody n A, ACUTE SUPRAVENTR 00 BREANNA ICULAR TACHYCARDI A, ACUTE BREANNA Active 11/28/2019 [facility] DVT/LEGS Diagnosis Active 2014-042015-03-15 M emoria SWOLLEN 05-11 03:10:00 l DVT/LEGS 00:00: Brody n SWOLLEN 00 Active 03/11/2015 [facility] LEG PAIN Diagnosis Active 2012-12-23 M emoria 12-23 04:15:00 l LEG PAIN 00:00: Brody n 00 Active 12/23/2012 [facility] Diabetes Problem Resolve 2012-12-25 Me moria mellitus d 21:52:45 l Diabetes Brody n mellitus Resolved Problem 12/25/2012 [facility] Gout Problem Resolve 2012-12-25 Caden karine d 21:52:45 l Gout [place] Resolved Problem 12/25/2012 [facility] Hypertensi Problem Resolve 2012-12-25 Memoria on d 21:52:45 l Kenneth Hypertensi on Resolved Problem 12/25/2012 [facility] Neuropathy Problem Resolve 2012-12-25 Memoria d 21:52:45 l Kenneth Neuropathy Resolved Problem 12/25/2012 [facility] Diabetes Problem Resolve 2019-12-10 Me moria mellitus d 22:38:00 l (disorder) Diabetes He rmann mellitus (disorder) Resolved Problem 12/10/2019 [facility] Gout Problem Resolve 2019-12-10 Caden karine (disorder) d 22:38:00 l Gout [place] (disorder) Resolved Problem 12/10/2019 [facility] Hypertensi Problem Resolve 2019-12-10 Memoria ve d 22:38:00 l disorder, [place] systemic Hypertensi arterial ve (disorder) disorder, systemic arterial (disorder) Resolved Problem 12/10/2019 [facility] Neuropathy Problem Resolve 2019-12-10 Memoria (disorder) d 22:38:00 l Kenneth Neuropathy (disorder) Resolved Problem 12/10/2019 [facility] Type II Problem Active 2019-12-10 Caden karine diabetes 22:38:00 l mellitus Type II Mariam nn uncontroll diabetes ed mellitus (finding) uncontroll ed (finding) Active Problem 12/10/2019 [facility] SUPRAVENTR Diagnosis Active 2020-01-19 Memoria ICULAR 13:03:00 l TACHYCARDI Brody n A SUPRAVENTR ICULAR TACHYCARDI A Active [facility] ACUTE Diagnosis Active 2020-01-19 Mem oria KIDNEY 13:03:00 l FAILURE, ACUTE [place] UNSPECIFIE KIDNEY D FAILURE, UNSPECIFIE D Active [facility] TYPE 2 Diagnosis Active 2020-01-19 Mem oria DIABETES 13:03:00 l MELLITUS TYPE 2 Brody n WITH DIABETES HYPERGLYCE MELLITUS WITH HYPERGLYCE Active [facility] Supraventr Problem 2019-12-10 M emoria icular 22:38:00 l tachycardi Brody n a Supraventr icular tachycardi a 12/10/2019 [facility] History of Past Illness Condition Condition Condition Status Onset Resolution Last Treating Co mments Source Name Details Category Date Date Treatment Clinician Date Discharge Problem 2014-042015-03-18 2015-03-18 Memoria Diagnosis: 05-15 05:51:43 05:51:43 l Acute DVT 06:00: Kenneth (deep Discharge 00 venous Diagnosis: thrombosis Acute DVT ) (deep venous thrombosis ) 03/15/2015 03/18/2015 [facility] Allergies, Adverse Reactions, Alerts Allergy Allergy Status Severity Reaction(s) Onset Inactive Treating Comm ents Source Name Type Date Date Clinician No Known No Known Active Madhavi shepard Medicati Medicati l on on Kenneth Allergie Allergie s s Social History Social Habit Start Date Stop Date Quantity Comments Source Social History 2019-11-29 2019-11-29 [facility] 08:52:56 08:52:56 Smoking Status Start Date Stop Date Source [facility] Medications Ordered Filled Start Stop Current Ordering Indication Dosage Frequency Signature Comments Components Source Medication Medication Date Date Medication? Clinician (SIG) Name Name metoprolol 2020-0 Yes 25 mg = 1 Me moria succinate 8-18 cap, PO, l 25 mg oral 20:19: Daily, # Her melchor capsule, 00 30 cap, 0 extended Refill(s) release metoprolol 2020-0 No 25 mg = 1 Me moria tartrate 25 8-18 tab, PO, l mg oral 18:18: Q12H, # 60 Herm fred tablet 00 tab, 0 Refill(s) rivaroxaban 2020-0 Yes 20 mg = 1 M emoria 20 mg oral 8-18 tab, PO, l tablet 18:18: QPM, For [place] Deep Venous Thrombosis / Pulmonary Embolism, # 30 tab, 0 Refill(s) Glipizide 5 2020-0 Yes 5 mg = 1 Me moria MG Oral 8-18 tab, PO, l Tablet 18:18: BID-Before Mariam nn 00 Meals, # 60 tab, 0 Refill(s) Saline 2019-0 No Notes: Memoria Flush 0.9% 8-18 Same as: l 02:00: BD [place] 00 Posiflush Sterile Saline 2020-0 No Notes: Memoria Flush 0.9% 8-17 Same as: l 17:49: BD Posiflush Sterile Xarelto 2020-0 No Notes: Memoria 8-10 (Same as: l 22:00: Xarelto) Administer with food metoprolol 2020-0 No Notes: Memor ia tartrate 8-10 (Same as: l 14:00: Lopressor) morphine 2019-0 No Notes: Memoria Sulfate 8-10 (Same l 08:39: as:MORPhin e Sulfate) carvedilol 2019-0 No Notes: Memor ia 11-29 Give with l 02:00: food. (Same As: Coreg) Adenosine 2019-0 No Notes: Memori a 11-28 Rapid IV l 22:36: PUSH over Kenneth 00 1-2 sec; Flush line immediatel y after drug is given. Lac-Hydrin 2019-0 No Notes: Memor ia 11-28 (Same as: l 22:00: Ainhactin) Xarelto 2019-0 No = 15 Memoria 11-28 mL/min, l 22:00: Start [place] 00 date: 11/29/19 17:00:00 CDT, Duration: 30 day, [...] 11-28 porcine l 13:00: heparin Glipizide 5 2019-0 No 5 mg = 1 Me moria MG Oral 11-28 tab, PO, l Tablet 09:01: BID-Before Mariam nn 00 Meals, # 30 tab, 1 Refill(s) NIFEdipine 2019-0 No 30 mg = 1 Me moria 30 mg oral 11-28 tab, PO, l tablet, 09:01: Daily, # Brody n extended 00 30 tab, 0 release Refill(s) Dextrose 2020-0 No 12.5 gm, Memor ia 50% Syringe 11-28 25 mL, l (D50W) 07:13: Route: Kenneth 00 IVP, Drug Form: INJ, Dosing Weight 113.636, kg, PRN, PRN Blood Glucose Results, Start date: 11/29/19 2:13:00 CDT, Duration: 30 day, Stop date: 12/29/19 2:12:00 CDT, 0 Glucagon 0 No 1 mg, Memoria 11-28 Route: IM, l 07:13: Drug form: [place] 00 PDR/INJ, PRN, Dosing Weight 113.636, kg, PRN Blood Glucose Results, Start date: 11/29/19 2:13:00 CDT, Duration: 30 day, Stop date: 12/29/19 2:12:00 CDT, 0 Insulin 2020-0 No Notes: Memoria Lispro 11-28 (Same as: l 07:13: Humalog) Kenneth Roll in palms of hands gently; Do not shake vigorously . WASTE: F/P - Black; E - Municipal Trash Bin Stable for 28 days at room temperatur e. Expires in days from ____Date Docusate 2019-0 No Notes: Memoria 11-28 (Same as: l 07:11: Colace) [place] (Do Not Crush) Ondansetron 2019-0 No Notes: Caden karine 11-28 (Same as: l 07:11: Zofran) Kenneth 00 MEDICATION WASTE Product Size: 4 mg Product Wasted: ___ mg Trazodone 2019-0 No Notes: Memori a 11-28 (Same As: l 07:11: Desyrel) [place] Acetaminoph 2019-0 No Notes: Do M emoria en 11-28 not exceed l 07:11: 4 gm/day. [place] (Same as: Tylenol) Lactated 0 No 1,000 mL, Caden karine Ringers IV 11-28 Rate: 75 l 1,000 mL 07:11: ml/hr, [place] Infuse over: 13.3 hr, Route: IV, Dosing [...] Notes: Memoria 11-28 (Same l 07:11: as:MORPhin [place] 00 e Sulfate) Albuterol No Notes: Memori a 0.833 MG/ML 11-28 (Same as: l 07:11: Duoneb) Kenneth Ipratropium 00 [place] 0.167 MG/ML Inhalant Solution [DuoNeb] Hydralazine No [...] tab, PO, l tablet 13:43: Daily, # Kenneth 00 14 tab, 0 Refill(s) 1 ML 2014-04 No 130 mg, Memoria Enoxaparin 1-24 SUB-Q, l sodium 150 13:40: Q12H, # 10 H ermann MG/ML 28 ea, 0 Prefilled Refill(s) Syringe [Lovenox] Lovenox 2014-04 Yes Notes: Memoria 05-15 Nurse to l 13:39: ensure [place] 00 documentat ion of patient education per anticoagul ation policy. (Same as: Lovenox) warfarin 2014-04 No 10 mg = 1 M emoria mg oral 1-24 tab, PO, l tablet 13:31: Daily, # [place] 00 14 tab, 0 Refill(s) 1 ML [...] mg, 1 Memoria 0.6 mg oral 12-23 [facility] tab, PO, l tablet 09:47: Q1H, PRN, Brody n 55 10 tab, Other-See Comments, Substituti on Allowed tramadol 50 Yes Silvia K 50 mg, 1 Memoria mg oral 12-23 [place] tab, PO, l tablet 09:47: Q6H, PRN, Brody n 20 40 tab, Pain, Substituti on Allowed, TAB allopurinol Yes Silvia K 300 mg, 1 Memoria 300 mg oral 12-23 [facility] tab, PO, l tablet 09:47: Daily, 30 Brody n 10 tab, Substituti on Allowed, TAB allopurinol No Silvia K 300 mg, 1 Memoria 12-23 [facility] tab, l 09:08: Route: PO, [place] 00 Drug form: TAB, ONCE, Dosing Weight 135, kg, Start date: 12/23/12 4:08:00, Stop date: 12/23/12 4:08:00 [place] No Silvia K 1 tab, Memori a 7.5/325 12-23 [place] Route: PO, l oral tablet 08:48: Drug Form: Kenneth 00 TAB, Dosing Weight 135, kg, ONCE, Start date: 12/23/12 3:48:00, Stop date: 12/23/12 3:48:00 ketorolac No Silvia K 30 mg, 1 Memoria 12-23 [facility] mL, Route: l 08:45: IM, Drug form: INJ, ONCE, Dosing Weight 135, kg, Priority: STAT, Start date: 12/23/12 3:45:00, Stop date: 12/23/12 3:45:00 allopurinol No Silvia K Route: PO, Memoria 12-23 [facility] ONCE, l 08:45: Dosing Kenneth 00 Weight 135, kg, Start date: 12/23/12 3:45:00, Stop date: 12/23/12 3:45:00 Vital Signs Vital Name Observation Time Observation Value Comments Source Heart Rate 2019-12-08 21:00:00 [facility] Kenneth Respitory Rate 2019-12-08 21:00:00 Memori al [place] Systolic (mm Hg) 2019-12-08 21:00:00 Caden rial Kenneth Diastolic (mm Hg) 2019-12-08 21:00:00 Mem orial [place] Heart Rate 2019-12-08 16:54:00 [facility] [place] Respitory Rate 2019-12-08 16:54:00 Memori al Kenneth Systolic (mm Hg) 2019-12-08 16:54:00 Caden rial [place] Diastolic (mm Hg) 2019-12-08 16:54:00 Mem orial Kenneth Heart Rate 2019-12-08 13:00:00 [facility] [place] Respitory Rate 2019-12-08 13:00:00 Memori al [place] Systolic (mm Hg) 2019-12-08 13:00:00 Caden rial [place] Diastolic (mm Hg) 2019-12-08 13:00:00 Mem orial Kenneth Temperature Oral (F) 2019-12-08 01:00:00 99.1 F [facility] [place] Temperature Oral (F) 2019-12-07 23:50:00 98.4 F [facility] Kenneth Temperature Oral (F) 2019-12-07 22:40:00 98.2 F [facility] [place] Temperature Oral (F) 2019-12-07 04:58:00 97.9 F [facility] Kenneth Heart Rate 2019-12-07 04:58:00 [facility] Kenneth Respitory Rate 2019-12-07 04:58:00 Memori al [place] Systolic (mm Hg) 2019-12-07 04:58:00 Caden rial Kenneth Diastolic (mm Hg) 2019-12-07 04:58:00 Mem orial Kenneth Heart Rate 2019-12-07 00:46:00 [facility] [place] Respitory Rate 2019-12-07 00:46:00 Memori al [place] Systolic (mm Hg) 2019-12-07 00:46:00 Caden rial Kenneth Diastolic (mm Hg) 2019-12-07 00:46:00 Mem orial [place] Temperature Oral (F) 2019-12-07 00:46:00 98.4 F [facility] [place] Heart Rate 2019-12-06 21:00:00 [facility] Kenneth Respitory Rate 2019-12-06 21:00:00 Memori al Kenneth Systolic (mm Hg) 2019-12-06 21:00:00 Caden rial Kenneth Diastolic (mm Hg) 2019-12-06 21:00:00 Mem orial Kenneth Temperature Oral (F) 2019-12-06 19:00:00 97.5 F [facility] [place] Heart Rate 2019-11-30 04:50:00 [facility] Kenneth Respitory Rate 2019-11-30 04:50:00 Memori al [place] Systolic (mm Hg) 2019-11-30 04:50:00 Caden rial [place] Diastolic (mm Hg) 2019-11-30 04:50:00 Mem orial [place] Heart Rate 2019-11-30 01:00:00 [facility] [place] Respitory Rate 2019-11-30 01:00:00 Memori al [place] Systolic (mm Hg) 2019-11-30 01:00:00 Caden rial Kenneth Diastolic (mm Hg) 2019-11-30 01:00:00 Mem orial [place] Heart Rate 2019-11-29 22:41:00 [facility] [place] Systolic (mm Hg) 2019-11-29 22:41:00 Caden rial Kenneth Diastolic (mm Hg) 2019-11-29 22:41:00 Mem orial Kenneth Respitory Rate 2019-11-29 21:05:00 Memori al [place] Height 2019-11-29 08:57:00 185.42 cm [facility] [place] Weight 2019-11-29 08:57:00 [facility] Kenneth BMI Calculated 2019-11-29 08:57:00 Memori al Kenneth Height 2019-11-29 02:04:00 185.42 cm [facility] [place] BMI Calculated 2019-11-29 02:04:00 Memori al Kenneth Weight 2019-11-29 02:04:00 [facility] Kenneth Temperature Oral (F) 2019-11-29 02:04:00 98.2 F [facility] [place] Respitory Rate 2015-03-15 14:30:00 Memori al Kenneth Temperature Oral (F) 2015-03-15 14:30:00 98.0 F [facility] Kenneth Heart Rate 2015-03-15 14:30:00 [facility] [place] Systolic (mm Hg) 2015-03-15 14:30:00 Caden rial [place] Diastolic (mm Hg) 2015-03-15 14:30:00 Mem orial Kenneth Systolic (mm Hg) 2015-03-15 13:30:00 Caden rial Kenneth Diastolic (mm Hg) 2015-03-15 13:30:00 Mem orial [place] Respitory Rate 2015-03-15 13:30:00 Memori al Kenneth Respitory Rate 2015-03-15 12:30:00 Memori al Kenneth Temperature Oral (F) 2015-03-15 12:30:00 97.0 F [facility] [place] Systolic (mm Hg) 2015-03-15 12:30:00 Caden rial [place] Diastolic (mm Hg) 2015-03-15 12:30:00 Mem orial Kenneth Temperature Oral (F) 2015-03-15 10:32:00 97.4 F [facility] Kenneth Heart Rate 2015-03-15 04:52:00 [facility] [place] Height 2015-03-15 04:52:00 185.42 cm [facility] Kenneth Weight 2015-03-15 04:52:00 [facility] [place] BMI Calculated 2015-03-15 04:52:00 Memori al Kenneth Temperature Oral (F) 2012-12-23 09:57:00 98.5 F [facility] Kenneth Systolic (mm Hg) 2012-12-23 09:57:00 Caden rial Kenneth Respitory Rate 2012-12-23 09:57:00 Memori al [place] Heart Rate 2012-12-23 09:57:00 [facility] Kenneth Diastolic (mm Hg) 2012-12-23 09:57:00 Mem orial Kenneth Respitory Rate 2012-12-23 08:29:00 Memori al Kenneth Heart Rate 2012-12-23 08:29:00 [facility] Kenneth Temperature Oral (F) 2012-12-23 08:29:00 97.9 F Memorial [place] Systolic (mm Hg) 2012-12-23 08:29:00 Caden rial Kenneth Diastolic (mm Hg) 2012-12-23 08:29:00 Mem orial [place] Weight 2012-12-23 08:29:00 [facility] Kenneth Height 2012-12-23 08:29:00 185.42 cm [facility] Kenneth Procedures This patient has no known procedures. Encounters Start End Encounter Admission Attending Care Care Encounter Source Date/Time Date/Time Type Type Clinicians Facility Department ID 2019-11-28 2019-12-08 Outpatient Oje, [facility] [id number] 20:58:40 17:45:00 Steve Fox [facility] 2019-11-29 2019-11-28 Inpatient E [facility] [id number] [facility] 02:11:00 22:54:00 2019-11-28 2019-11-28 Outpatient Oje, [facility] [id number] 20:58:40 20:58:40 Steve Fox [facility] 2019-11-28 2019-11-28 Outpatient Ojeih, [facility] [id number] 20:58:40 20:58:40 Steve Fox [facility] 2019-11-28 2019-11-28 Outpatient Oje, [facility] [id number] 20:58:40 20:58:40 Steve Fox [facility] 2019-11-28 2019-11-28 Outpatient Oje, [facility] [id number] 20:58:40 20:58:40 Steve Fox [facility] 2019-11-28 2019-11-28 Outpatient Oje, [facility] [id number] 20:58:40 20:58:40 Steve Fox [facility] 2019-11-24 2019-11-[id number] [place] [place] 00:00:00 00:00:00 RICKY 217 Method i 2015-03-14 2015-03-15 Outpatient Ashley Vernon [facility] [id number] 22:35:00 08:30:00 Alexander 01 Results Test Description Test Time Test Comments Results Result [facility] e Comments IMMUNOLOGY 2019-12-05 Not Detected [facility] 18:37:00 *NA*(12/05/19 [place] 1:37 PM) IMMUNOLOGY 2019-12-04 Not Detected [facility] 17:53:00 *NA*(12/04/19 [place] 12:53 PM) HEMATOLOGY 2019-12-02 62.0 [facility] 09:50:00 [place] HEMATOLOGY 2019-12-02 09:50:00 Test Item Value Reference Range Interpretation Comme nts MCH (test code = MCH) 19.5 pg 27.0-31.0 [facility]ZGLPHZUN0459-15-13 09:50:0031.4[facility] 2019-12-02 09:50:0016.3[facility] PeeazqrPLGLFJFRTW9832-56-51 09:50:77138Zpdurdjv SnmyabmKUYYOOHXGN7611-83-08 09:50:009.0[facility] HermannCHEM HXDSQ7753-77-27 09:50:0085[facility]annCHEM BWLUK8302-91-24 09:50:0018[facility]annCHEM AGOTX7236-90-92 09:50:001.50[facility]annCHE[facility] RWTTV1176-09-32 09:50:52155 [facility] IYXLY0553-15-54 09:50:004.3[facility]annCHEM PANEL 2019-12-02 09:50:81164Lymojbal HermannCHEM LETLQ8160-70-53 09:50:0026[facility]annCHEM ENVKF5066-15-52 09:50:008.5[facility]annCHEM SPGNZ3434-51-18 09:50:0012.3[facility]annCHEM AVFZV7819-87-50 09:50:0052[facility] [place] PDEBWKBFTX9774-16-82 09:50:0047.5[facility] KrnfcgbCIAMISOXJZ7036-71-89 09:50:00 35.6[facility] KfeovqyJDHOWRHEMZ8377-85-30 09:50:0013.0[facility]annHEMATOLOGY 2019-12-02 09:50:002.9[facility] IucivvpFRZIRBMFWL6324-72-10 09:50:001.0[facility] RsxwiuiMJNPGHGXRX8355-77-99 09:50:003.1[facility] VxfjrftUOGFIDGNEL6626-57-62 09:50:002.4[facility] XyyvvhwGIACWBFNRM1470-60-57 09:50:000.9[facility] [place] BXAUKQXGHC2638-49-33 09:50:000.2[facility] TakwkqeDCVGRUEBAZ0384-54-06 09:50:000.1 Memorial LdnnqmsNWVIZQXUFP0966-74-21 09:50:003+ *NA*(12/02/19 4:50 AM)[facility] HeskxwtMHXZJCUOXW0491-92-58 09:50:001+ (12/02/19 4:50 AM)[facility] [place] ZFIQIGEDIG3178-43-10 09:50:00Moderate *ABN*(12/02/19 4:50 AM)[facility] Kenneth FHLHCWPXID8602-82-20 09:50:00Moderate *ABN*(12/02/19 4:50 AM)[facility] [place] EJHTDROTKW2898-24-23 09:50:006.6[facility] DzmncyhXCFNYABJMT2145-33-00 09:50:00 5.85[facility] MgtbtxfXMDSPUENVK1168-32-88 09:50:0011.4[facility] HermannHEMATOLOGY 2019-12-02 09:50:0036.3[facility] HermannCHEM CRXDM7531-75-10 11:25:0090[facility]annCHEM QZRRK0512-02-44 11:25:0025[facility]annCHEM BEOHD7329-79-74 11:25:001.80[facility]annCHEM KLBPK6282-68-56 11:25:48579Stgpmgax HermannCHEM MEUGL3186-98-46 11:25:004.5[facility]annCHEM EZSOP8854-75-58 11:25:22938 [facility]annCHE[facility] YAQQS6884-56-72 11:25:0024[facility]annCHEM PANEL 2019-11-30 11:25:008.7[facility]annCHEM CVRPE7323-67-53 11:25:0012.5[facility]annCHEM LMCGZ9483-76-21 11:25:0042[facility] ScufckySTEPEHXJOJ6196-16-19 20:16:00Detected 5*ABN*(11/29/19 3:16 PM)[facility] HermannANEMIA DWEGD9176-26-55 15:19:0034[facility] HermannANEMIA HBXUF7150-92-32 15:19:0073[facility] Kenneth ANEMIA VZREB5148-35-34 15:19:55894Sfmqihkt HermannURINE AND VMIWL2637-36-57 14:58:00Slight *ABN*(11/29/19 9:58 AM)[facility] AND AZDXA6019-07-91 14:58:00 Test Item Value Reference Range Interpretation Comments UA Spec Grav (test code = UA Spec 1.015 1 Grav) [facility] [id number] 14:58:00 Test Item Value Reference Range Interpretation Comments UA pH (test code = UA pH) 5.0 1 5.0-8.0 [facility] [id number] 14:58:00Negative *NA*(11/29/19 9:58 AM) [facility] OZKZH0411-67-89 14:58:00Small *ABN*(11/29/19 9:58 AM) [facility] CWDQL5120-12-62 14:58:00Negative (11/29/19 9:58 AM) [facility] MPINJ7315-78-80 14:58:00Negative (11/29/19 9:58 AM) [facility] YHAXY8465-66-79 14:58:002[facility] AND HAKMB0709-90-43 14:58:009[facility] AND BLEGB4324-95-72 14:58:00 <=1.0[facility] HermannCARDIAC HNUWQAX0762-88-44 13:13:000.04[facility] Kenneth CARDIAC BWQDSKN1702-74-93 09:43:000.04[facility] HermannCHEM UIIIB5341-60-06 09:43:0099[facility] HermannCHEM ZWQFG2761-59-25 09:43:0029[facility] HermannCHEM LRBPH6677-57-15 09:43:002.90[facility] HermannCHEM DYNTF2763-16-10 09:43:38446 [facility]annCHE[facility] FLRGR6370-37-42 09:43:004.5[facility] HermannCHEM PANEL 2019-11-29 09:43:64922Bduwnest HermannCHEM GHLLR2981-02-13 09:43:0026[facility] HermannCHEM OUPGV7794-76-67 09:43:009.4[facility] HermannCHEM PIBER0437-94-37 09:43:008.0[facility]annCHEM IUTWL6718-15-56 09:43:003.5[facility] HermannCHEM DRFGN7681-77-44 09:43:0034[facility] HermannCHEM QEUYO0537-79-55 09:43:0020 [facility]annCHEM HLAZY5759-10-67 09:43:0084[facility] HermannCHEM PANEL 2019-11-29 09:43:000.7[facility] HermannCHEM OHSVZ1781-98-46 09:43:0012.5[facility] HermannCHEM CDAMH0469-23-23 09:43:00 Test Item Value Reference Range Interpretation Comments B/C Ratio (test code = B/C Ratio) 10 1 6-25 [facility]annCHE[facility] KZXMM4535-24-03 09:43:004.5[facility] HermannCHEM PANEL 2019-11-29 09:43:00 Test Item Value Reference Range Interpretation Comments A/G Ratio (test code = A/G Ratio) 0.8 1 0.7-1.6 [facility]annCHEM [id number] 09:43:0024[facility] HermannCHEM PANEL 2019-11-29 09:43:002.1[facility] HermannCHEM ZUOSI7629-43-30 09:43:004.3[facility] HermannCHEM KPMDV1351-72-08 09:43:000.28[facility] HermannCHEM LBQTG5343-85-68 09:43:001.5[facility] DdzkmjbWNYLWCSNRU9622-70-70 09:43:008.0[facility] [place] CRUETEBUCU7656-47-56 09:43:001.4[facility] IlkwavuKZSCKEBSME4976-92-81 09:43:000.8 [facility] YkirgnjWKJAAOBJVG4472-50-76 09:43:000.3[facility] HermannHEMATOLOGY 2019-11-29 09:43:0076.0[facility] YttdjcwFGQUHJJSEA9570-91-65 09:43:000.0[facility] UwsrqkkHHNTYTWURD4027-26-34 09:43:0012.0[facility] YxuphusAHWMTHDEWB5114-76-32 09:43:008.0[facility] CqmaenrPIUPZHIJEF6006-56-19 09:43:003.0[facility] [place] NJPJJKMGQD1880-64-01 09:43:001.0[facility] HqikwuqSCMKUZBEHK1207-50-41 09:43:00 Normal (11/29/19 4:43 AM)[facility] JypsfnoFPONRJVUTR9512-21-60 09:43:003+ *ABN*(11/29/19 4:43 AM)[facility] XnateakHZAGRCPUAX8953-34-27 09:43:001+ (11/29/19 4:43 AM)[facility] PkxtefwNWKBSIHXVH9975-58-89 09:43:00Moderate *ABN*(11/29/19 4:43 AM)[facility] EhrmwchSYCFLYUNSZ6586-32-26 09:43:00Moderate *ABN*(11/29/19 4:43 AM) [facility] IelstbmQCAPLJCUWE9299-04-90 09:43:00Slight *ABN*(11/29/19 4:43 AM) [facility] QdrsttqZEHFXOUDYJ9618-60-03 09:43:0010.5[facility] HermannHEMATOLOGY 2019-11-29 09:43:006.37[facility] IaxcbdvSMLOWRPPDU6549-66-99 09:43:0012.2[facility] FaiovocXALLGLLFNH7931-64-22 09:43:0039.4[facility] PfnsepbKVIKNXJONF8285-57-80 09:43:0061.8[facility] BwugyyvREUDLSQVEV5542-18-25 09:43:00 Test Item Value Reference Range Interpretation Comments MCH (test code = MCH) 19.2 pg 27.0-31.0 [facility] TowvwcmIKZLSDMPDO6176-96-76 09:43:0031.0[facility] HermannHEMATOLOGY 2019-11-29 09:43:0016.4[facility] VpyxhhjMINSNAEJQC8441-42-55 09:43:17524Tbsxhczz DmyetvcUJRHNZFRCC0413-27-84 09:43:009.9[facility] JppdkfrYTYWJKECTE9113-83-75 05:59:00Not Detected (11/29/19 12:59 AM)[facility]annCARDIAC GSSTPJI2098-97-23 02:39:47643Dekgakxj HermannCARDIAC ZFNHHSO0612-91-42 02:39:000.04[facility]annCARDIAC LEOJHKE5926-06-89 02:39:55740Gdmypboa HermannCHEM VOMTQ2345-69-50 02:39:0097[facility]annCHEM YYFUU1946-27-72 02:39:0026[facility]annCHEM SNLOA5316-51-56 02:39:003.40[facility]annCHEM CPJKC8882-87-86 02:39:57423 [facility]annCHEM LMYXD7333-31-69 02:39:004.0[facility]annCHEM PANEL 2019-11-29 02:39:45945Txdcteca HermannCHEM VIIHY7306-18-70 02:39:0026[facility]annCHEM AFJDH9431-83-68 02:39:0010.4[facility] HermannCHEM WJRCP2143-38-26 02:39:0012.0[facility]annCHEM DOBTT1927-24-85 02:39:0019[facility]annCHEM NFDHE0597-80-24 02:39:008.5[facility]annCHEM ZFJKH2269-91-42 02:39:003.6 [facility]annCHEM EITUY4815-46-51 02:39:0033[facility]annCHEM PANEL 2019-11-29 02:39:0024[facility]annCHEM TCHBC8518-89-05 02:39:0081[facility]annCHEM XOMKY1755-66-34 02:39:000.7[facility]annCHEM NDRVE8388-00-72 02:39:000.2[facility]annCHEM VBARU2112-38-40 02:39:000.5[facility] HermannCHEM WVJEY0150-20-59 02:39:004.9[facility]annCHEM AXIRK4562-98-22 02:39:00 Test Item Value Reference Range Interpretation Comments A/G Ratio (test code = A/G Ratio) 0.7 1 0.7-1.6 [facility]annCHEM WKAYD1461-11-33 02:39:002.4[facility]annHEMATOLOGY 2019-11-29 02:39:0010.5[facility] KjcrgppFYRZQIIEEM7069-96-53 02:39:006.24[facility] HrtxyvsRHDMEEOLZR8778-23-89 02:39:0012.1[facility] RzpgltfBAPCIQZPNE0393-18-89 02:39:0039.8[facility] JefeaieMTLSDFLARX8457-74-42 02:39:0063.8[facility] RIKJWMRVWB0865-22-93 02:39:00 Test Item Value Reference Range Interpretation Comments MCH (test code = MCH) 19.3 pg 27.0-31.0 [facility] NjsssxvQKTXYGQDHQ8539-93-17 02:39:0030.3[facility] [facility] 2019-11-29 02:39:0016.5[facility] YeowirzAQSZLTVXQU9216-85-38 02:39:09383Syhukvkf XtmyfksQIVYTQDGIX5256-61-33 02:39:009.4[facility] ScasdnbXCANUUEUAX2762-61-80 02:39:00 Test Item Value Reference Range Interpretation Comments PT (test code = PT) 14.3 s 12.0-14.7 [facility] HzjdwhnIVQUHAXWCC4991-68-59 02:39:00 Test Item Value Reference Range Interpretation Comments INR (test code = INR) 1.11 1 0.85-1.17 [facility] VvrakczDMKQGJDPHC0204-87-94 02:39:00 Test Item Value Reference Range Interpretation Comments PTT (test code = PTT) 28.6 s 22.9-35.8 [facility] MeloyqzTLNJXWTZIH2504-61-91 02:39:008.4[facility] 2019-11-29 02:39:001.3[facility] IfdvuvnDFMGWCQAIG3299-89-75 02:39:000.7[facility] ZyjpymxTVWAUNTLFC1032-33-47 02:39:000.1[facility] BgkuvsgEGOODVMTJW0796-93-80 02:39:0077.0[facility] VkcemxtDKAPZMVBBA8034-02-32 02:39:003.0[facility] [place] BGOGQDGOHQ6004-92-36 02:39:0012.0[facility] XpvqehpRYCQRHEHPA6939-99-84 02:39:00 7.0[facility] KxpfdnwTPRHOTJCGD1418-89-48 02:39:001.0[facility] 2019-11-29 02:39:000.0[facility] AzmrrveIRBKLJINYX0482-33-23 02:39:001+ *ABN*(11/28/19 9:39 PM)[facility] OdmgwrcBNWBDHAYSC3440-25-36 02:39:002+ *ABN*(11/28/19 9:39 PM)[facility] PgrzywoDSYVKQDRNM9772-82-54 02:39:001+ (11/28/19 9:39 PM)[facility] RxnuylkSYHMKWHULM7121-48-06 02:39:00Moderate *ABN*(11/28/19 9:39 PM)[facility] KjjozikLPIWENZXIY1855-12-46 02:39:00Moderate *ABN*(11/28/19 9:39 PM) [facility] NssoniaAWYZIHSKMX3979-28-94 02:39:00Moderate *ABN*(11/28/19 9:39 PM) [facility] WXHNI6232-74-83 12:32:008.5[facility]annCHEM PANEL 2015-03-15 12:32:0056[facility]annCHE[facility] MVAAV9521-11-52 12:32:0027[facility]annCHEM SINGG8087-26-03 12:32:009.8[facility]annCHEM DYUYS3149-40-56 12:32:36454Uirhrqym [facility]annCHE[facility] BIXRJ2340-84-94 12:32:003.8[facility]ann[facility] SVATR6933-92-01 12:32:55556Iztfodsm [facility]CHE[facility] FLJUQ0167-27-60 12:32:58604 [facility] JPKRN5916-80-26 12:32:0018[facility] HermannCHEM PANEL 2015-03-15 12:32:001.45[facility]annCHE[facility] FQAMJ4010-35-47 09:17:0052[facility]annCHEM VVAQK6899-01-12 09:17:53852Rafnishs HermannCHEM CKWPC0358-31-87 09:17:87337Weizbzwx [facility]annCHE[facility] GRMQV1756-77-67 09:17:0025[facility]ann[facility] LNOVO7119-84-93 09:17:009.0[facility]annCHE[facility] LGSHH4307-84-05 09:17:005.7 [facility] SJGFS9058-43-23 09:17:20436Xvkeibva HermannCHEM PANEL 2015-03-15 09:17:0021[facility]annCHEM CLFJK5085-79-69 09:17:001.55[facility]annCHEM VRLBS5991-86-72 09:17:0015.7[facility] XstfkjtNGOYHQCVUI0516-91-04 09:17:0029.7[facility] QvfvbdvPNMNTWFVGC9331-49-41 09:17:009.4[facility] QAEBPTIFNQ9340-43-69 09:17:001.0[facility] UqoxclwAUMVEDBPYB5116-21-69 09:17:004.6 [facility] GomjgprYNHJQEKQPP6579-91-69 09:17:002.1[facility]MATOLOGY 2015-03-15 09:17:004.0[facility] WbswwuaLPPCPQTTDJ3198-07-60 09:17:000.1[facility] CtwkmkzFRZGFEHSAM3627-00-85 09:17:000.3[facility] UvhzemvRDYTWYNMIF3818-37-24 09:17:0055.3[facility] QwqarjdBMQDRAWJLL0508-47-37 09:17:003+ *NA*(03/15/15 3:17 AM)[facility] CmxipcnWGCEQFPZZD5015-95-73 09:17:000.7[facility]ann[facility]MATOLOGY 2015-03-15 09:17:00Moderate *ABN*(03/15/15 3:17 AM)[facility] 2015-03-15 09:17:001+ (03/15/15 3:17 AM)[facility] JniayhrARXUQDZSKK6223-36-66 09:17:001+ *ABN*(03/15/15 3:17 AM)[facility] QfhhtmqSWGPVLZVFV5453-87-18 09:17:00 1.23[facility] OhbuehcTOVVBOQXKM0741-40-76 09:17:00 Test Item Value Reference Range Interpretation Comments PT (test code = PT) 15.8 s 12.0-14.7 [facility] BotjqieMPBLDVLDRF0199-39-83 09:17:00 Test Item Value Reference Range Interpretation Comments PTT (test code = PTT) 37.7 s 22.9-35.8 [facility] KjxisdwKJZCBOKQWS2844-46-65 09:17:00 Test Item Value Reference Range Interpretation Comments MCH (test code = MCH) 18.8 pg 27.0-31.0 [facility] UnsnnxzAABEBZWEDK9208-64-19 09:17:0062.9[facility] 2015-03-15 09:17:009.0[facility] HpejxxfJZNBUMXQDG5950-29-15 09:17:89044Fzvrckbj GcjmwhnKFNXCWFKAD3814-42-14 09:17:0018.2[facility] SeskklmYMQUENMEGA1600-66-24 09:17:0029.9[facility] RsunoxeAZFTFCKVDV1782-37-31 09:17:0041.1[facility] LGHECNOOQD9905-20-33 09:17:0012.3[facility] AaaoobvGLNEXXOOEG9086-30-05 09:17:00 6.7[facility] PrludnfURVSXPVQDG5260-12-11 09:17:006.54[facility]
--- NOTE | 2020-06-25 13:16 | RAD REPORT ---
EXAM DESCRIPTION: RAD - Chest Single View - 06/25/2020 1:03 pm CLINICAL HISTORY: SOB COMPARISON: Portable February 2020 TECHNIQUE: AP portable chest image was obtained 06/25/2020 1:03 pm . FINDINGS: No focal consolidation or mass lesions seen. Interstitial opacification is present increas ed over the baseline appearance on the comparison examination. Central vasculature has increased in p rominence. Heart size is similar to perhaps slightly enlarged. Trachea is midline. No measurable pleu ral effusion and no pneumothorax. No acute bony abnormality seen. No acute aortic findings suspected. IMPRESSION: Mild CHF/volume overload findings are evident. No focal consolidation to suspect bacterial pneumonia. Viral infiltrative process is possible.
[2020-06-25] MEDS ORDERED: FUROSEMIDE 40 MG/4 ML VIAL ONE (13:26)
[2020-06-25 13:33] LABS: Hematocrit 36.4 % (39.6-49.0); MPV 9.6 fL (7.6-11.3); RBC Red Blood Cell Count 5.83 M/uL (4.33-5.43)
[2020-06-25 13:34] LABS: Protime INR 1.09
[2020-06-25 13:49] LABS: ALT/SGPT 19 U/L (12-78); AST/SGOT 12 U/L (15-37); Albumin 3.5 g/dL (3.4-5.0); Alkaline Phosphatase 110 U/L (45-117); BUN Blood Urea Nitrogen 12 mg/dL (7-18); Bicarbonate 29 mmol/L (21-32); Bilirubin Direct 0.2 mg/dL (0-0.2); Bilirubin Total 0.5 mg/dL (0.2-1.0); Glucose Level 86 mg/dL (74-106); Magnesium 2.4 mg/dL (1.8-2.4); NT PRO-BNP 1885 pg/mL (<450); Potassium 4.2 mmol/L (3.5-5.1); Protein, Total 7.9 g/dL (6.4-8.2); Sodium Level 146 mmol/L (136-145); Troponin (Emerg Dept Use Only) < 0.02 ng/mL (0.0-0.045)
--- NOTE | 2020-06-25 15:59 | EDPHYS ---
Physician Documentation [facility] Name: Tal Cornejo Age: 75 yrs Sex: Male : 1945 Arrival Date: 06/25/2020 Time: 11:40 Bed 16 Private MD: ED Physician Aleksey Ramsey HPI: 06/25 12:51 This 75 yrs old Black Male presents to ER via Ambulatory with complaints of Shortness pm1 Of Breath. 12:51 The patient has shortness of breath at rest. Onset: The symptoms/episode began/occurred pm1 2 day(s) ago. Duration: The symptoms are continuous. The patient's shortness of breath is aggravated by exertion, not taking his Lasix. Has not taken his Lasix for 1 month, is alleviated by nothing. Associated signs and symptoms: Pertinent positives: chest pain, Pertinent negatives: non-productive cough, fever, nausea, vomiting. Severity of symptoms: in the emergency department the symptoms are worse. The patient has experienced similar episodes in the past, a few times. The patient has not recently seen a physician, the patient's primary care provider is Dr. RONN emery. Historical: - Allergies: 12:29 No Known Allergies; iw - Home Meds: 12:29 atorvastatin Oral [Active]; Furosemide Oral [Active]; losartan Oral [Active]; Metformin iw Oral [Active]; Xarelto Oral [Active]; - PMHx: 12:29 Diabetes - NIDDM; DVT; Gout; Hyperlipidemia; Hypertension; LYMPHODEMA; PE; iw - Immunization history:: Adult Immunizations not up to date. - Social history:: Smoking status: Patient denies any tobacco usage or history of. ROS: 12:52 Constitutional: Negative for fever, chills, and weight loss. pm1 12:52 Abdomen/GI: Negative for abdominal pain, nausea, vomiting, diarrhea, and constipation, Back: Negative for injury and pain, MS/Extremity: Negative for injury and deformity, Skin: Negative for injury, rash, and discoloration, Neuro: Negative for headache, weakness, numbness, tingling, and seizure. 12:52 Cardiovascular: Positive for chest pain, edema, Negative for orthopnea, palpitations. 12:52 Respiratory: Positive for shortness of breath, Negative for cough, sputum production, wheezing. Exam: 12:52 Constitutional: This is a well developed, well nourished patient who is awake, alert, pm1 and in no acute distress. Head/Face: Normocephalic, atraumatic. 12:52 Back: No spinal tenderness. No costovertebral tenderness. Full range of motion. 12:52 Skin: Warm, dry with normal turgor. Normal color with no rashes, no lesions, and no evidence of cellulitis. MS/ Extremity: Pulses equal, no cyanosis. Neurovascular intact. Full, normal range of motion. 12:52 Cardiovascular: Exam negative for acute changes, Rate: normal, Rhythm: regular, Pulses: no pulse deficits are appreciated, Edema: pedal edema, 2+. 12:52 Respiratory: Exam negative for acute changes, respiratory distress, shortness of breath, Breath sounds: are clear throughout. 12:52 Abdomen/GI: Exam negative for acute changes, Inspection: abdomen appears normal, Palpation: abdomen is soft and non-tender, in all quadrants. 12:52 Neuro: Exam negative for acute changes, Orientation: is normal, Mentation: is normal, Motor: is normal, moves all fours. Vital Signs: 12:24 BP 134 / 84; Pulse 80; Resp 18; Temp 97.7; Pulse Ox 99% on R/A; Weight 117.93 kg; iw Height 6 ft. 1 in. (185.42 cm); Pain 0/10; 13:33 BP 126 / 62; Pulse 74; Resp 18; Pulse Ox 98% 1 lpm ; zb 14:59 BP 135 / 85; Pulse 68; Resp 20; Pulse Ox 97% on R/A; zb 12:24 Body Mass Index 34.30 (117.93 kg, 185.42 cm) iw MDM: 12:22 Patient medically screened. dev 15:56 Data reviewed: vital signs. Data interpreted: Pulse oximetry: on room air is 97 %. pm1 Interpretation: normal. 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 06/25 12:35 Order name: Basic Metabolic Panel pm1 06/25 12:35 Order name: CBC with Diff; Complete Time: 16:58 pm1 06/25 12:35 Order name: LFT's pm1 06/25 12:35 Order name: Magnesium pm1 06/25 12:35 Order name: NT PRO-BNP pm1 06/25 12:35 Order name: PT-INR pm1 06/25 12:35 Order name: Troponin (emerg Dept Use Only) pm1 06/25 13:46 Order name: Protime (+INR); Complete Time: 13:52 EDMS 06/25 13:49 Order name: Basic Metabolic Panel EDMS 06/25 13:49 Order name: Liver (Hepatic) Function EDMS 06/25 13:49 Order name: Troponin (Emerg Dept Use Only) EDMS 06/25 13:49 Order name: NT PRO-BNP EDMS 06/25 13:49 Order name: Magnesium EDMS 06/25 13:54 Order name: Manual Differential; Complete Time: 16:58 EDMS 06/25 12:35 Order name: XRAY Chest (1 view) pm1 06/25 12:35 Order name: EKG; Complete Time: 12:39 pm1 06/25 12:35 Order name: Cardiac monitoring; Complete Time: 12:36 pm1 06/25 12:35 Order name: EKG - Nurse/Tech; Complete Time: 13:11 pm1 06/25 12:35 Order name: IV Saline Lock; Complete Time: 13:11 pm1 06/25 12:35 Order name: Labs collected and sent; Complete Time: 13:11 pm1 06/25 12:35 Order name: O2 Per Protocol; Complete Time: 12:36 pm1 06/25 12:35 Order name: O2 Sat Monitoring; Complete Time: 12:36 pm1 06/25 13:16 Order name: RAD; Complete Time: 13:52 EDMS Administered Medications: 13:20 Drug: Lasix 40 mg Route: IVP; Site: left antecubital; zb Disposition: 06/26 09:10 Co-signature as Attending Physician, Aleksey CAMARGO I agree with the assessment and dev plan of care. Disposition: 06/25/20 15:58 Discharged to Home. Impression: Congestive heart failure, Patient's other noncompliance with medication regimen. - Condition is Stable. - Discharge Instructions: Heart Failure. - Medication Reconciliation Form, Thank You Letter, Antibiotic Education, Prescription Opioid Use form. - Follow up: Emergency Department; When: As needed; Reason: Worsening of condition. Follow up: Private Physician; When: 2 - 3 days; Reason: Recheck today's complaints, Continuance of care, Re-evaluation by your physician. - Problem is new. - Symptoms have improved. Signatures: Dispatcher [employer] EDMS Aleksey Ramsey MD MD cha Williams, Irene, RN RN iw Mattie Bello RN RN aa5 Erick Stacy NP CORPORATE RECEPTIONIST pm1 Izabel Gonsales RN RN zb Corrections: (The following items were deleted from the chart) 06/25 16:30 15:58 06/25/2020 15:58 Discharged to Home. Impression: Congestive heart failure; aa5 Patient's other noncompliance with medication regimen. Condition is Stable. Forms are Medication Reconciliation Form, Thank You Letter, Antibiotic Education, Prescription Opioid Use. Follow up: Emergency Department; When: As needed; Reason: Worsening of condition. Follow up: Private Physician; When: 2 - 3 days; Reason: Recheck today's complaints, Continuance of care, Re-evaluation by your physician. Problem is new. Symptoms have improved. pm1
--- NOTE | 2020-06-25 15:59 | ER ---
Nurse's Notes [facility] Name: Tal Cornejo Age: 75 yrs Sex: Male : 1945 Arrival Date: 06/25/2020 Time: 11:40 Bed 16 Private MD: Diagnosis: Patient's other noncompliance with medication regimen;Congestive heart failure Presentation: 06/25 12:24 Chief complaint: Patient states: he started experience shortness of breath x2 days. iw intermittent chest tightness on the lower left side, denies radiation. + fatigue and bilateral leg swelling. denies nausea/vomiting/ fever/ diarrhea. Coronavirus screen: At this time, the client does not indicate any symptoms associated with coronavirus-19. Ebola Screen: No symptoms or risks identified at this time. Initial Sepsis Screen: Does the patient meet any 2 criteria? No. Patient's initial sepsis screen is negative. Does the patient have a suspected source of infection? No. Patient's initial sepsis screen is negative. Risk Assessment: Do you want to hurt yourself or someone else? Patient reports no desire to harm self or others. Onset of symptoms was June 23, 2020. 12:24 Acuity: MARTITA 3 iw 12:24 Method Of Arrival: Ambulatory iw Triage Assessment: 12:31 General: Appears in no apparent distress. uncomfortable, Behavior is calm, cooperative, iw appropriate for age. Pain: Complains of pain in chest Pain does not radiate. Pain currently is 6 out of 10 on a pain scale. Quality of pain is described as pressure, Pain began 2-3 days ago. Is intermittent, Alleviated by rest, Aggravated by increased activity, Also complains of shortness of breath, Current management - is no interventions. EENT: No signs and/or symptoms were reported regarding the EENT system. Neuro: Level of Consciousness is awake, alert, obeys commands, Oriented to person, place, time. Cardiovascular: Reports chest pain, fatigue, shortness of breath, Denies fatigue, nausea, palpitations, vomiting, Heart tones S1 S2 present Murmur present Patient's skin is warm and dry. Edema is 3+ to left ankle and right ankle Rhythm is regular Chest pain is described as mild, quality is heaviness, pressure, is located in left anterior chest wall epigastric area began 2 days ago. Respiratory: Reports shortness of breath at rest Airway is patent Respiratory effort is even, unlabored, Respiratory pattern is regular, symmetrical, Breath sounds are diminished bilaterally. Onset: The symptoms/episode began/occurred 2 days ago , the patient has moderate shortness of breath. GI: No signs and/or symptoms were reported involving the gastrointestinal system. Abdomen is round obese, Bowel sounds present X 4 quads. Abd is soft and non tender X 4 quads. : No signs and/or symptoms were reported regarding the genitourinary system. Derm: Skin is intact, is fragile, Skin is dry, Skin is normal, Skin temperature is warm. Musculoskeletal: Circulation, motion, and sensation intact. Range of motion: intact in all extremities. Historical: - Allergies: 12:29 No Known Allergies; iw - Home Meds: 12:29 atorvastatin Oral [Active]; Furosemide Oral [Active]; losartan Oral [Active]; Metformin iw Oral [Active]; Xarelto Oral [Active]; - PMHx: 12:29 Diabetes - NIDDM; DVT; Gout; Hyperlipidemia; Hypertension; LYMPHODEMA; PE; iw - Immunization history:: Adult Immunizations not up to date. - Social history:: Smoking status: Patient denies any tobacco usage or history of. Screenin:35 Abuse screen: Denies threats or abuse. Denies injuries from another. Nutritional iw screening: No deficits noted. Tuberculosis screening: No symptoms or risk factors identified. Fall Risk None identified. Assessment: 12:49 Reassessment: ECP at bedside. zb 13:33 Reassessment: Patient appears in no apparent distress at this time. Patient and/or zb family updated on plan of care and expected duration. Pain level reassessed. Patient is alert, oriented x 3, equal unlabored respirations, skin warm/dry/pink. patient lying in bed at this time. Patient states feeling better. 14:26 Reassessment: Patient appears in no apparent distress at this time. Patient and/or zb family updated on plan of care and expected duration. Pain level reassessed. Patient is alert, oriented x 3, equal unlabored respirations, skin warm/dry/pink. 15:00 Reassessment: notified ECP of vitals. zb 16:28 Neuro: Level of Consciousness is awake, alert, obeys commands, Oriented to person, aa5 place, time, situation. Respiratory: Airway is patent Respiratory effort is even, unlabored, Respiratory pattern is regular, symmetrical. Derm: Skin is dry, Skin is normal, Skin temperature is warm. Vital Signs: 12:24 BP 134 / 84; Pulse 80; Resp 18; Temp 97.7; Pulse Ox 99% on R/A; Weight 117.93 kg; iw Height 6 ft. 1 in. (185.42 cm); Pain 0/10; 13:33 BP 126 / 62; Pulse 74; Resp 18; Pulse Ox 98% 1 lpm ; zb 14:59 BP 135 / 85; Pulse 68; Resp 20; Pulse Ox 97% on R/A; zb 12:24 Body Mass Index 34.30 (117.93 kg, 185.42 cm) iw ED Course: 11:40 Patient arrived in ED. am2 12:13 Erick Stacy NP is PHCP. pm1 12:13 Aleksey Ramsey MD is Attending Physician. pm1 12:24 Swetha Rosa RN is Primary Nurse. iw 12:28 Triage completed. iw 12:35 Patient has correct armband on for positive identification. Bed in low position. Call iw light in reach. Side rails up X 1. telemetry monitor on. Pulse ox on. NIBP on. Door closed. Noise minimized. 12:36 Arm band placed on. iw 13:11 Inserted saline lock: 20 gauge in left antecubital area, using aseptic technique. Blood dh4 collected. 16:28 No provider procedures requiring assistance completed. IV discontinued, intact, aa5 bleeding controlled, No redness/swelling at site. Pressure dressing applied. Administered Medications: 13:20 Drug: Lasix 40 mg Route: IVP; Site: left antecubital; zb Outcome: 15:58 Discharge ordered by . pm1 16:28 Discharged to home ambulatory. aa5 16:28 Condition: stable 16:28 Discharge instructions given to patient, Instructed on discharge instructions, follow up and referral plans. Demonstrated understanding of instructions, follow-up care. 16:30 Patient left the ED. aa5 Signatures: Swetha Rosa, MYRON SANCHES iw Mattie Bello RN RN aa5 Erick Stacy NP INSTRUCTOR PRIVATE pm1 Bernice Rueda am2 Nish Parry dh4 Izabel Gonsales RN RN zb
[2020-06-25 16:15] LABS: Anisocytosis 1+; Blood Morphology Comment NOTED (NOT SEEN); Hypochromasia 1+; Platelet Estimate ADEQ; Poikilocytosis 1+
[2020-06-25 16:16] LABS: Ovalocytes 1+
[2020-06-25 16:37] VITALS: BP 135/85; O2SAT 97
[2020-06-30 11:45] VITALS: TEMP 97.7
== END 2020-06-25 16:30 | disposition home or self-care (01) ==
LOC: ER 11:36
DX: I50.9 Heart failure, unspecified (principal); Z91.14 Patient's other noncompliance with medication regimen; I10 Essential (primary) hypertension; E11.9 Type 2 diabetes mellitus without complications; E78.5 Hyperlipidemia, unspecified; Z86.718 Personal history of other venous thrombosis and embolism; Z79.01 Long term (current) use of anticoagulants
CPT/HCPCS: 93005; 85025; 80048; 36415; 83735; 85610; 80076; 84484; 83880; 71045; 96374; 99284; J1940

== ENCOUNTER 2020-11-20 07:33 | Observation (INO) | payer OTHER ==
--- OUTSIDE RECORDS SUMMARY | 2020-11-20 07:38 | XMS REPORT | Continuity of Care Document ---
:1945 Author Organization [facility] t Address [address] [place] [address] Care Team Providers Name Role Phone Asked, Pcp Primary Care Physician Unavailable Sunday CAMARGO Attending Clinician Rick Koch Attending Clinician Gabe Butts MD Attending Clinician Sheikh MARY JO Attending Clinician Chani Frazier Attending Clinician MD CHANI FRAZIER Attending Clinician Unavailable Alexander Vernon Attending Clinician Rick Koch Admitting Clinician Admitting Clinician Unavailable MD MAVERICK Admitting Clinician Unavailable Payers Payer Name Policy Type Policy Effective Date Expiration Date Sour ce Number MEDICAREMEDICARE PART [id number] 2010 [facility] [id number] 2010- 00:00:00 [place] Condition Condition Condition Status Onset Resolution Last Treating Co mments Source Name Details Category Date Date Treatment Clinician Date SUPRAVENTR Diagnosis Active 2020-01-19 Memoria ICULAR 11-27 13:03:00 l TACHYCARDI 00:00: Brody hines A, ACUTE SUPRAVENTR 00 BREANNA ICULAR TACHYCARDI A, ACUTE BREANNA Active 11/28/2019 [facility] BREATHING Diagnosis Active 2019-11-28 Memoria PROBLEM 11-27 23:36:00 l 00:00: [place] BREATHING 00 PROBLEM Active 11/28/2019 [facility] COVID-19 COVID-19 Disease Active Metho di virus virus 11-24 detected detected 00:00: Hospit a 00 l Shortness Shortness Disease Active Met hodi of breath of breath 11-23 00:00: Hospita 00 l DVT/LEGS Diagnosis Active 2014-042015-03-15 M emoria SWOLLEN 05-11 03:10:00 l DVT/LEGS 00:00: Brody n SWOLLEN 00 Active 03/11/2015 [facility] LEG PAIN Diagnosis Active 2012-12-23 M emoria 12-23 04:15:00 l LEG PAIN 00:00: Brody n 00 Active 12/23/2012 [facility] Gout Problem Resolve 2019-12-10 Caden karine (disorder) d 22:38:00 l Gout [place] (disorder) Resolved Problem 12/10/2019 [facility] Hypertensi Problem Resolve 2019-12-10 Memoria ve d 22:38:00 l disorder, Kenneth systemic Hypertensi arterial ve (disorder) disorder, systemic arterial (disorder) Resolved Problem 12/10/2019 [facility] Neuropathy Problem Resolve 2019-12-10 Memoria (disorder) d 22:38:00 l Kenneth Neuropathy (disorder) Resolved Problem 12/10/2019 [facility] Diabetes Problem Resolve 2012-12-25 Me moria mellitus d 21:52:45 l Diabetes Brody n mellitus Resolved Problem 12/25/2012 [facility] Gout Problem Resolve 2012-12-25 Caden karine d 21:52:45 l Gout Kenneth Resolved Problem 12/25/2012 [facility] Hypertensi Problem Resolve 2012-12-25 Memoria on d 21:52:45 l [place] Hypertensi on Resolved Problem 12/25/2012 [facility] Neuropathy Problem Resolve 2012-12-25 Memoria d 21:52:45 l [place] Neuropathy Resolved Problem 12/25/2012 [facility] Type II Problem Active 2019-12-10 Caden karine diabetes 22:38:00 l mellitus Type II Mariam nn uncontroll diabetes ed mellitus (finding) uncontroll ed (finding) Active Problem 12/10/2019 [facility] SUPRAVENTR Diagnosis Active 2020-01-19 Memoria ICULAR 13:03:00 l TACHYCARDI Brody n A SUPRAVENTR ICULAR TACHYCARDI A Active [facility] ACUTE Diagnosis Active 2020-01-19 Mem oria KIDNEY 13:03:00 l FAILURE, ACUTE [place] UNSPECIFIE KIDNEY D FAILURE, UNSPECIFIE D Active [facility] TYPE 2 Diagnosis Active 2020-01-19 Mem oria DIABETES 13:03:00 l MELLITUS TYPE 2 Brody n WITH DIABETES HYPERGLYCE MELLITUS WITH HYPERGLYCE Active [facility] Supraventr Problem 2019-12-10 M emoria icular 22:38:00 l tachycardi Brody n a Supraventr icular tachycardi a 12/10/2019 [facility] Diabetes Problem Resolve 2019-12-10 Me moria mellitus d 22:38:00 l (disorder) Diabetes He rmann mellitus (disorder) Resolved Problem 12/10/2019 [facility] History of Past Illness Condition Condition Condition Status Onset Resolution Last Treating Co mments Source Name Details Category Date Date Treatment Clinician Date Discharge Problem 2014-042015-03-18 2015-03-18 Memoria Diagnosis: 05-15 05:51:43 05:51:43 l Acute DVT 06:00: Kenneth (deep Discharge 00 venous Diagnosis: thrombosis Acute DVT ) (deep venous thrombosis ) 03/15/2015 03/18/2015 [facility] Allergies, Adverse Reactions, Alerts This patient has no known allergies or adverse reactions. Social History Social Habit Start Date Stop Date Quantity Comments Source History [facility] Alcohol Std Drinks Hospit al History [facility] Alcohol Binge Hospital Social History 2019-11-29 2019-11-29 [facility] 08:52:56 08:52:56 Tobacco use and 2019-11-26 2019-11-26 Never used [facility] exposure 00:00:00 00:00:00 Hospital Alcohol intake 2019-11-26 2019-11-26 Lifetime [facility] 00:00:00 00:00:00 non-drinker Hospital (finding) History [facility] 2019-11-25 2019-11-25 1 [facility] Alcohol Frequency 00:00:00 00:00:00 Hospita l Sex Ass[birth year] At [birth year] [facility] 00:00:00 00:00:00 Hospital Smoking Status Start Date Stop Date Source Never smoker [facility] Medications Ordered Filled Start Stop Current Ordering [...] tab, PO, l tablet 18:18: QPM, For [place] 00 Deep Venous Thrombosis / Pulmonary Embolism, # 30 tab, 0 Refill(s) Glipizide 5 2019-0 Yes 5 mg = 1 Me moria MG Oral 8-18 tab, PO, l Tablet 18:18: BID-Before Mariam nn 00 Meals, # 60 tab, 0 Refill(s) Saline 0 No Notes: Memoria Flush 0.9% 8-18 Same as: l 02:00: BD Posiflush Sterile Saline 2019-0 No Notes: Memoria Flush 0.9% 8-17 Same as: l 17:49: BD Posiflush Sterile Xarelto 2019-0 No Notes: Memoria 8-10 (Same as: l 22:00: Xarelto) Administer with food metoprolol 2019-0 No Notes: Memor ia tartrate 8-10 (Same as: l 14:00: Lopressor) morphine 2019-0 No Notes: Memoria Sulfate 8-10 (Same l 08:39: as:MORPhin e Sulfate) carvedilol 2019-0 No Notes: Memor ia 8-10 Give with l 02:00: food. Kenneth 00 (Same As: Coreg) Adenosine 2019-0 No Notes: Memori a 8- Rapid IV l 22:36: PUSH over Kenneth 00 1-2 sec; Flush line immediatel y after drug is given. Lac-Hydrin 2019-0 No Notes: Memor ia 8-09 (Same as: l 22:00: Ainhactin) Xarelto 2019-0 No = 15 Memoria 8-09 mL/min, l 22:00: Start date: 11/29/19 17:00:00 CDT, Duration: 30 day, Stop date: 12/28/19 17:00:00 CDT, For Deep Venous Thrombosis / Pulmonary Embolism Lactic acid 2020-0 No 1 appl, Mem oria 100 MG/ML 11-28 Route: l Topical 14:00: TOP, BID, Mariam nn Lotion 00 Start date: 11/29/19 9:00:00 CDT, Duration: 30 day, Stop date: 12/28/19 17:00:00 CDT heparin 2020-0 No Notes: Memoria 11-28 porcine l 13:00: heparin Glipizide 5 2020-0 No 5 mg = 1 Me moria MG Oral 11-28 tab, PO, l Tablet 09:01: BID-Before Mariam nn 00 Meals, # 30 tab, 1 Refill(s) NIFEdipine 2020-0 No 30 mg = 1 Me moria [...] Lispro 11-28 (Same as: l 07:13: Humalog) Roll in palms of hands gently; Do not shake vigorously . WASTE: F/P - Black; E - Municipal Trash Bin Stable for 28 days at room temperatur e. Expires in days from ____Date Docusate 2019-0 No Notes: Memoria 11-28 (Same as: l 07:11: Colace) Kenneth (Do Not Crush) Ondansetron 0 No Notes: Caden karine 11-28 (Same as: l 07:11: Zofran) Kenneth 00 MEDICATION WASTE Product Size: 4 mg Product Wasted: ___ mg Trazodone 2019-0 No Notes: Memori a 11-28 (Same As: l 07:11: Desyrel) [place] 00 Acetaminoph 0 No Notes: Do M emoria en 11-28 not exceed l 07:11: 4 gm/day. Kenneth (Same as: Tylenol) Lactated No 1,000 mL, Caden karine Ringers IV 11-28 Rate: 75 l 1,000 mL 07:11: ml/hr, [place] 00 Infuse over: 13.3 hr, Route: IV, Dosing Weight 113.636 kg, Total Volume: 1,000, Priority: Routine, Start date: 11/29/19 2:11:00 CDT, Duration: 30 day, Stop date: 12/29/19 2:10:00 CDT, 2.44, m2, 0 Maalox 0 No Notes: Memoria Advanced 11-28 (aluminum l Regular 07:11: hydroxide- Herm fred Strength 00 magnesium SUSP hyd-simeth icone 200-200-20 mg/5ml 30 ml ud PABLO) Morphine 0 No Notes: Memoria 11-28 (Same l 07:11: as:MORPhin Kenneth 00 e Sulfate) Albuterol 0 No Notes: Memori a 0.833 MG/ML 11-28 (Same as: l / 07:11: Duoneb) [place] Ipratropium 00 [place] 0.167 MG/ML Inhalant Solution [DuoNeb] Hydralazine 0 No Notes: Caden karine 11-28 (Same as: l 07:11: Apresoline Kenneth 00 ) Push over 5 minutes losartan-hy 2019-0 2020- No 1{tbl} QD Take 1 M ethodi drochloroth 11-[address] iazide 01:07: 00:00 mouth Hospita (HYZAAR) 18 :00 daily. l 100-12.5 mg per tablet metFORMIN 2019-0 2019- No 500mg Q.5D Take 500 Me thodi (GLUCOPHAGE 11-[address] ) 500 mg 01:07: 00:00 mouth 2 Hospi ta tablet 18 :00 (two) l times a day with meals. furosemide 2019-2019- No 20mg Q.5D Take 20 mg Methodi (LASIX) 20 11-[address] mg tablet 01:07: 00:00 (two) Hospit a 18 :00 times a l day. aspirin 81 2019- 2020- No 81mg QD Chew 1 Meth eric mg chewable 11-26 tablet (81 s t tablet 00:00: 04:59 mg total) Hospi ta 00 :00 daily for l 30 days. NIFEdipine 2019-0 2020- No 30mg QD Take 1 Meth eric XL 11-26 tablet (30 st (PROCARDIA 00:00: 04:59 mg total) H ospita XL) 30 MG 00 :00 by mouth l 24 hr daily for tablet 30 days. atorvastati 2019-0 2020- No 10mg QD Take 1 Met hodi n (LIPITOR) 11-26 tablet (10 s t 10 mg 00:00: 04:59 mg total) Hospit a tablet 00 :00 by mouth l nightly for 30 days. glipiZIDE 2019-0 2020- No 5mg Q.5D Take 1 Metho di (GlucotroL) 11-26 tablet (5 st 5 MG tablet 00:00: 04:59 mg total) Hospita 00 :00 by mouth 2 l (two) times a day before meals for 30 days. metoprolol 2019-0 2020- No 25mg Q.5D Take 1 Meth eric tartrate 11-26 tablet (25 st (LOPRESSOR) 00:00: 04:59 mg total) Hospita 25 mg 00 :00 by mouth 2 l tablet (two) times a day for 30 days. NIFEdipine 2019-0 2020- No 30mg QD Take 1 Meth eric XL 8-07 08-07 tablet (30 st (PROCARDIA 00:00: 00:00 mg total) H ospita XL) 30 MG 00 :00 by mouth l 24 hr daily for tablet 30 days. guaiFENesin 2019-0 2020- No 600mg Q.5D Take 1 Me thodi (MUCINEX) 11-[address] 600 mg 00:00: 04:59 (600 mg Hospita tablet 00 :00 total) by l extended mouth 2 release (two) 12hr times a day as needed (cough) for up to 30 days. atorvastati 2019-0 2019- No 10mg QD Take 1 Met hodi n (LIPITOR) 11-25 tablet (10 s t 10 mg 00:00: 00:00 mg total) Hospit a tablet 00 :00 by mouth l nightly for 30 days. metoprolol 0 2020- No 25mg Q.5D Take 1 Meth eric tartrate 11-25 tablet (25 st (LOPRESSOR) 00:00: 00:00 mg total) Hospita 25 mg 00 :00 by mouth 2 l tablet (two) times a day for 30 days. glipiZIDE 2020- No 5mg Q.5D Take 1 Metho di (GlucotroL) 11-25 tablet (5 st 5 MG tablet 00:00: 00:00 mg total) Hospita 00 :00 by mouth 2 l (two) times a day before meals for 30 days. azithromyci 2020- No 500mg QD Take 1 Me thodi n 11-[address] (Zithromax) 00:00: 00:00 (500 mg Ho spita 500 MG 00 :00 total) by l tablet mouth daily. 1 ML 2014-04 Yes 130 mg, Memoria [...] Memoria 05-15 Nurse to l 13:39: ensure Kenneth 00 documentat ion of patient education [facility]. (Same as: Lovenox) warfarin 2014-04 No 10 mg = 1 M emoria mg oral 05-15 tab, PO, l tablet 13:31: Daily, # Kenneth 00 14 tab, 0 Refill(s) 1 ML 2014-04 No 150 mg, Memoria Enoxaparin 05-15 SUB-Q, l sodium 150 13:30: Q12H, # 10 H ermann MG/ML 00 ea, 0 Prefilled Refill(s) Syringe [Lovenox] Lovenox 2014-04 No 150 mg, Memoria 05-15 Route: l 13:15: SUB-Q, [place] 00 ONCE, Dosing Weight 127.273, kg, Start date: 03/15/15 7:15:00, Stop date: 03/15/15 7:15:00 PlasmaLyte 2014-04 No Notes: Memor ia A PH-7.4 05-15 (Same as: l 1,000 mL 10:42: Isolyte S Herm fred PH 7.4) colchicine Yes Silvia K 0.6 mg, 1 Memoria 0.6 mg oral 12-23 [facility] tab, PO, l tablet 09:47: Q1H, PRN, Brody n 55 10 tab, Other-See Comments, Substituti on Allowed tramadol 50 Yes Silvia K 50 mg, 1 Memoria mg oral 12-23 [facility] tab, PO, l tablet 09:47: Q6H, PRN, Brody n 20 40 tab, Pain, Substituti on Allowed, TAB allopurinol Yes Silvia K 300 mg, 1 Memoria 300 mg oral 12-23 [facility] tab, PO, l tablet 09:47: Daily, 30 Brody n 10 tab, Substituti on Allowed, TAB allopurinol No Silvia K 300 mg, 1 Memoria 12-23 [facility] tab, l 09:08: Route: PO, Kenneth 00 Drug form: TAB, ONCE, Dosing Weight 135, kg, Start date: 12/23/12 4:08:00, Stop date: 12/23/12 4:08:00 Byron No Silvia K 1 tab, Memori a 7.5/325 12-23 [facility] Route: PO, l oral tablet 08:48: Drug Form: [place] 00 TAB, Dosing Weight 135, kg, ONCE, Start date: 12/23/12 3:48:00, Stop date: 12/23/12 3:48:00 ketorolac No Silvia K 30 mg, 1 Memoria 12-23 [facility] mL, Route: l 08:45: IM, Drug [place] 00 form: INJ, ONCE, Dosing Weight 135, kg, Priority: STAT, Start date: 12/23/12 3:45:00, Stop date: 12/23/12 3:45:00 allopurinol No Silvia K Route: PO, Memoria 12-23 [facility] ONCE, l 08:45: Dosing [place] 00 Weight 135, kg, Start date: 12/23/12 3:45:00, Stop date: 12/23/12 3:45:00 Vital Signs Vital Name Observation Time Observation Value Comments Source Heart Rate 2019-12-08 21:00:00 [facility] Respitory Rate 2019-12-08 21:00:00 Memori al Kenneth Systolic (mm Hg) 2019-12-08 21:00:00 Caden rial Kenneth Diastolic (mm Hg) 2019-12-08 21:00:00 Mem orial Kenneth Heart Rate 2019-12-08 16:54:00 [facility] [place] Respitory Rate 2019-12-08 16:54:00 Memori al Kenneth Systolic (mm Hg) 2019-12-08 16:54:00 Caden rial [place] Diastolic (mm Hg) 2019-12-08 16:54:00 Mem orial Kenneth Heart Rate 2019-12-08 13:00:00 [facility] [place] Respitory Rate 2019-12-08 13:00:00 Memori al Kenneth Systolic (mm Hg) 2019-12-08 13:00:00 Caden rial [place] Diastolic (mm Hg) 2019-12-08 13:00:00 Mem orial Kenneth Temperature Oral (F) 2019-12-08 01:00:00 99.1 F [facility] [place] Temperature Oral (F) 2019-12-07 23:50:00 98.4 F [facility] [place] Temperature Oral (F) 2019-12-07 22:40:00 98.2 F [facility] Temperature Oral (F) 2019-12-07 04:58:00 97.9 F [facility] [place] Heart Rate 2019-12-07 04:58:00 [facility] [place] Respitory Rate 2019-12-07 04:58:00 Memori al Kenneth Systolic (mm Hg) 2019-12-07 04:58:00 Caden rial [place] Diastolic (mm Hg) 2019-12-07 04:58:00 Mem orial [place] Heart Rate 2019-12-07 00:46:00 [facility] [place] Respitory Rate 2019-12-07 00:46:00 Memori al Kenneth Systolic (mm Hg) 2019-12-07 00:46:00 Caden rial [place] Diastolic (mm Hg) 2019-12-07 00:46:00 Mem orial [place] Temperature Oral (F) 2019-12-07 00:46:00 98.4 F [facility] [place] Heart Rate 2019-12-06 21:00:00 [facility] Kenneth Respitory Rate 2019-12-06 21:00:00 Memori al Kenneth Systolic (mm Hg) 2019-12-06 21:00:00 Caden rial [place] Diastolic (mm Hg) 2019-12-06 21:00:00 Mem orial Kenneth Temperature Oral (F) 2019-12-06 19:00:00 97.5 F [facility] Kenneth Heart Rate 2019-11-30 04:50:00 [facility] Respitory Rate 2019-11-30 04:50:00 Memori al [place] Systolic (mm Hg) 2019-11-30 04:50:00 Caden rial [place] Diastolic (mm Hg) 2019-11-30 04:50:00 Mem orial Kenneth Heart Rate 2019-11-30 01:00:00 [facility] Kenneth Respitory Rate 2019-11-30 01:00:00 Memori al [place] Systolic (mm Hg) 2019-11-30 01:00:00 Caden rial [place] Diastolic (mm Hg) 2019-11-30 01:00:00 Mem orial Kenneth Heart Rate 2019-11-29 22:41:00 [facility] [place] Systolic (mm Hg) 2019-11-29 22:41:00 Caden rial Kenneth Diastolic (mm Hg) 2019-11-29 22:41:00 Mem orial [place] Respitory Rate 2019-11-29 21:05:00 Memori al Kenneth Height 2019-11-29 08:57:00 185.42 cm [facility] [place] Weight 2019-11-29 08:57:00 [facility] BMI Calculated 2019-11-29 08:57:00 Memori al [place] Height 2019-11-29 02:04:00 185.42 cm [facility] Kenneth BMI Calculated 2019-11-29 02:04:00 Memori al Kenneth Weight 2019-11-29 02:04:00 [facility] Kenneth Temperature Oral (F) 2019-11-29 02:04:00 98.2 F [facility] Systolic blood 2019-11-27 20:21:40 133 mm[Hg] [facility] pressure Diastolic blood 2019-11-27 20:21:40 65 mm[Hg] [facility] pressure Heart rate 2019-11-27 20:21:40 64 /min [facility] Body temperature 2019-11-27 20:21:40 36.22 [facility] Respiratory rate 2019-11-27 20:21:40 18 /min [facility] Oxygen saturation in 2019-11-27 20:21:40 98 /min [facility] Arterial blood by Pulse oximetry Body weight 2019-11-27 09:14:10 114.034 kg [facility] BMI 2019-11-27 09:14:10 33.17 kg/m2 [facility] Body height 2019-11-25 06:48:00 185.4 cm [facility] Respitory Rate 2015-03-15 14:30:00 Memori al Kenneth Temperature Oral (F) 2015-03-15 14:30:00 98.0 F [facility] Kenneth Heart Rate 2015-03-15 14:30:00 [facility] Systolic (mm Hg) 2015-03-15 14:30:00 Caden rial [place] Diastolic (mm Hg) 2015-03-15 14:30:00 Mem orial [place] Systolic (mm Hg) 2015-03-15 13:30:00 Caden rial Kenneth Diastolic (mm Hg) 2015-03-15 13:30:00 Mem orial Kenneth Respitory Rate 2015-03-15 13:30:00 Memori al [place] Respitory Rate 2015-03-15 12:30:00 Memori al Kenneth Temperature Oral (F) 2015-03-15 12:30:00 97.0 F [facility] Kenneth Systolic (mm Hg) 2015-03-15 12:30:00 Caden rial [place] Diastolic (mm Hg) 2015-03-15 12:30:00 Mem orial Kenneth Temperature Oral (F) 2015-03-15 10:32:00 97.4 F [facility] Kenneth Heart Rate 2015-03-15 04:52:00 [facility] Kenneth Height 2015-03-15 04:52:00 185.42 cm [facility] Kenneth Weight 2015-03-15 04:52:00 [facility] Kenneth BMI Calculated 2015-03-15 04:52:00 Memori al Kenneth Temperature Oral (F) 2012-12-23 09:57:00 98.5 F [facility] Kenneth Systolic (mm Hg) 2012-12-23 09:57:00 Caden rial Kenneth Respitory Rate 2012-12-23 09:57:00 Memori al Kenneth Heart Rate 2012-12-23 09:57:00 [facility] Kenneth Diastolic (mm Hg) 2012-12-23 09:57:00 Mem orial [place] Respitory Rate 2012-12-23 08:29:00 Memori al Kenneth Heart Rate 2012-12-23 08:29:00 [facility] [place] Temperature Oral (F) 2012-12-23 08:29:00 97.9 F [facility] [place] Systolic (mm Hg) 2012-12-23 08:29:00 Caden rial Kenneth Diastolic (mm Hg) 2012-12-23 08:29:00 Mem orial Kenneth Weight 2012-12-23 08:29:00 [facility] Kenneth Height 2012-12-23 08:29:00 185.42 cm [facility] Procedures Procedure Date / Time Performing Clinician Source Performed POC GLUCOSE 2019-11-27 17:59:00 [facility] POC GLUCOSE 2019-11-27 13:20:00 [facility] POC GLUCOSE 2019-11-27 01:24:00 [facility] POC GLUCOSE 2019-11-26 13:21:00 [facility] POC GLUCOSE 2019-11-26 01:15:00 [facility] POC GLUCOSE 2019-11-25 21:14:00 [facility] POC GLUCOSE 2019-11-25 16:44:00 [facility] TTE COMPLETE, WO 2019-11-25 13:45:00 [facility] W DOPPLER ([id number]) POC GLUCOSE 2019-11-25 12:37:00 [facility] HC COMPLETE BLD COUNT 2019-11-25 09:45:00 Stuart Del Valle [facility] W/AUTO DIFF POC GLUCOSE 2019-11-25 06:41:00 [facility] TROPONIN 2019-11-25 03:20:00 Ty, [facility] Chrissy URINE CULTURE 2019-11-25 03:10:00 Ty, [facility] Chrissy URINALYSIS SCREEN AND 2019-11-25 03:10:00 Ty, [facility] MICROSCOPY, WITH REFLEX Chrissy TO CULTURE CT CHEST WO CONTRAST 2019-11-25 02:23:48 [facility] POC GLUCOSE 2019-11-25 01:49:00 [facility] POC GLUCOSE 2019-11-24 23:54:00 [facility] TROPONIN 2019-11-24 23:10:00 Ty, Ania [facility] Ho spital Chrissy HEMOGLOBIN A1C 2019-11-24 23:10:00 [facility] COMPREHENSIVE METABOLIC 2019-11-24 23:10:00 [facility] PANEL MAGNESIUM LEVEL 2019-11-24 23:10:00 [facility] PHOSPHORUS LEVEL 2019-11-24 23:10:00 [facility] ESTIMATED GFR 2019-11-24 23:10:00 [facility] COVID-19 QUALITATIVE 2019-11-24 22:45:00 Ty, [facility] RT-PCR Chrissy ECG ED PRELIMINARY 2019-11-24 20:56:11 Ty, [facility] INTERPRETATION Chrissy ECG 12-LEAD 2019-11-24 20:54:14 Ty, [facility] spital Chrissy HC COMPLETE BLD COUNT 2019-11-24 20:38:00 Ty, [facility] W/AUTO DIFF Chrissy PROTHROMBIN TIME WITH INR 2019-11-24 20:38:00 Ty, [facility] Chrissy PARTIAL THROMBOPLASTIN 2019-11-24 20:38:00 [facility], [facility] TIME (PTT) Chrissy COMPREHENSIVE METABOLIC 2019-11-24 20:38:00 Ty, [facility] PANEL Chrissy TROPONIN 2019-11-24 20:38:00 Ty, [facility] spital Chrissy LIPASE LEVEL 2019-11-24 20:38:00 Ty, [facility] spital Chrissy B NATRIURETIC PEPTIDE 2019-11-24 20:38:00 Ty, [facility] Chrissy ESTIMATED GFR 2019-11-24 20:38:00 Ty, [facility] sp[facility] Chrissy XR CHEST 1 VW PORTABLE 2019-11-24 20:37:00 Ty, [facility] Chrissy Plan of Care Planned Activity Planned Date Details Comments Source Future Scheduled 2021-01-20 IMM Influenza Seasonal [facility] Test 00:00:00 Jan to June (>/= 19 yrs) [code = IMM Influenza Seasonal Jan to June (>/= 19 yrs)] Future Scheduled 2010 IMM Pneumococcal Age [facility] Test 00:00:00 65 and Up [code = IMM Pneumococcal Age 65 and Up] Future Scheduled 1957 COVID-19 Vaccine (1) [facility] 00:00:00 [code = COVID-19 Vaccine (1)] Future Scheduled 65+ PNEUMOCOCCAL [facility] Test VACCINE (1 of 4 - PCV13) [code = 65+ PNEUMOCOCCAL VACCINE (1 of 4 - PCV13)] Future Scheduled DIABETES: RETINAL EYE [facility] Test EXAM [code = DIABETES: RETINAL EYE EXAM] Future Scheduled DIABETIC FOOT EXAM [facility] Test [code = DIABETIC FOOT EXAM] Future Scheduled COVID-19 VACCINE (1) Met [facility] Test [code = COVID-19 VACCINE (1)] Future Scheduled Hepatitis C screening [facility] Test (procedure) [code = 083150923] Future Scheduled COLONOSCOPY SCREENING [facility] Hospital Test [code = COLONOSCOPY SCREENING] Future Scheduled SHINGLES VACCINES (#1) [facility] [code = SHINGLES VACCINES (#1)] Future Scheduled INFLUENZA VACCINE [facility] Test [code = INFLUENZA VACCINE] Encounters Start End Encounter Admission Attending Care Care Encounter Source Date/Time Date/Time Type Type Clinicians Facility Department ID 2020-04-17 2020-04-17 [place], [facility] [id number] 16:56:00 20:05:00 Alfredo Jordan [id number] [place] [id number] [place] [id number] 2019-11-28 2019-12-08 Outpatient Oje, [facility] [id number] 20:58:40 17:45:00 Steve Fox [facility] 2019-11-29 2019-11-28 Inpatient E [facility] [id number] [facility] 02:11:00 22:54:00 2019-11-28 2019-11-28 Outpatient Oje, [facility] [id number] 20:58:40 20:58:40 Steve Fox [facility] 2019-11-28 2019-11-28 Outpatient Oje, [facility] [id number] 20:58:40 20:58:40 Steve Fox [facility] 2019-11-28 2019-11-28 Outpatient Oje, [facility] [id number] 20:58:40 20:58:40 Steve Fox [facility] 2019-11-28 2019-11-28 Outpatient Oje, [facility] [id number] 20:58:40 20:58:40 Setve Fox [facility] 2019-11-28 2019-11-28 Outpatient Oje, [facility] [id number] 20:58:40 20:58:40 Steve Fox [facility] 2019-11-24 2019-11-27 [facility] Meera Butts [id number] Method[facility] 15:13:48 20:07:00 Encounter Juan Jack [id number] Ricky Frazier [id number] Hospita .[id number] l .8 2019-11-24 2019-11-27 Inpatient SEMAJ [facility] [id number] [address] [place] 00:00:00 00:00:[address] 2019-11-24 2019-11-24 Travel [id number] Methodi 00:00:00 00:00:[id number] [id number] Ho spita .[id number] 084.8 l .8 2017-07-01 2017-07-01 Emergency [facility] [id number] [place] 01:48:00 01:48:00 Health 2015-03-14 2015-03-15 Outpatient Ashley Vernon [facility] [id number] 22:35:00 08:30:00 Alexander 01 Results Test Description Test Time Test Comments [facility] I[facility] 2019-12-05 Not Detected [facility] 18:37:00 *NA*(12/05/19 Kenneth 1:37 PM) IMMUNOLOGY 2019-12-04 Not Detected [facility] 17:53:00 *NA*(12/04/19 Kenneth 12:53 PM) HEMATOLOGY 2019-12-02 09:50:00 Test Item Value Reference Range Interpretation Comme nts MCH (test code = MCH) 19.5 pg 27.0-31.0 [facility] WequlysGXAXYMNWUE1287-07-06 09:50:0031.4[facility] HermannHEMATOLOGY 2019-12-02 09:50:0016.3[facility] IwmgjxiYHBRYGHWRJ0395-32-71 09:50:45633Zguvutqi XvdjvcjXPSWGUTQVI2315-50-92 09:50:009.0[facility] HermannCHEM TJOBT2383-58-98 09:50:0085[facility]annCHEM PKHUX9812-40-65 09:50:0018[facility]annCHEM XBBVR9753-80-42 09:50:001.50[facility]annCHEM JJNFT9914-90-19 09:50:47392 [facility]annCHE[facility] FJXNU5440-21-91 09:50:004.3[facility] HermannCHEM PANEL 2019-12-02 09:50:09376Qmkdilwh HermannCHEM EUURL1656-70-60 09:50:0026[facility]annCHEM FMSNW7637-00-71 09:50:008.5[facility]annCHEM IKFSG7054-74-06 09:50:0012.3[facility]annCHEM XAMIE3622-08-59 09:50:0052[facility] WVZSGNXDRR2889-20-45 09:50:0047.5[facility] WswddmsWHZNPPYQZQ5938-71-26 09:50:00 35.6[facility] XlmsnxuYSYDODUEUX5491-28-67 09:50:0013.0[facility] HermannHEMATOLOGY 2019-12-02 09:50:002.9[facility] TxojnudJZPXMVFCPN9259-27-98 09:50:001.0[facility] MuczfkjLJLPTFQUSW1988-69-52 09:50:003.1[facility] GiztjidSUTTXNILQV0353-50-60 09:50:002.4[facility] GowdeleLYLOQQBQHP7408-31-94 09:50:000.9[facility] HMEJUYTPCV0890-91-85 09:50:000.2[facility] HxrkxbiJUMVZPBZGG5634-33-80 09:50:000.1 [facility] NhlvwqoXRRSXNIHLS9714-55-26 09:50:003+ *NA*(12/02/19 4:50 AM)[facility] QlngnebWCFGFDDESX6798-07-85 09:50:001+ (12/02/19 4:50 AM)[facility] DNZGOICKPF2210-77-06 09:50:00Moderate *ABN*(12/02/19 4:50 AM)[facility] DWEXGSZMQC0588-64-62 09:50:00Moderate *ABN*(12/02/19 4:50 AM)[facility] CNGFPDUDZS0646-48-41 09:50:006.6[facility] IgjuezeMDLUHXGZRP5790-77-48 09:50:00 5.85[facility] OmuqllgCWVBWGUIIW0894-71-42 09:50:0011.4[facility] HermannHEMATOLOGY 2019-12-02 09:50:0036.3[facility] HjxovveQCGWSTHKJH5883-53-24 09:50:0062.0[facility] HermannCHEM ULCNS3083-25-13 11:25:0090[facility]annCHEM DZIFT7689-26-93 11:25:0025[facility]annCHEM VTNTT6267-55-53 11:25:001.80[facility]annCHEM QFMJW0587-40-89 11:25:63715Aywncynj HermannCHEM DXLDX9716-81-43 11:25:004.5 [facility]annCHE[facility] RKFPW5827-79-39 11:25:97802Vrgttzwi HermannCHEM PANEL 2019-11-30 11:25:0024[facility]annCHEM YNSMX0309-94-94 11:25:008.7[facility]annCHEM LFQQG5584-10-26 11:25:0012.5[facility]annCHEM KSFJO1743-71-58 11:25:0042[facility] YoaemvqIDSZXZAGNA8591-52-12 20:16:00Detected 5*ABN*(11/29/19 3:16 PM)[facility] HermannANEMIA LTYGO8218-31-27 15:19:0073[facility] HermannANEMIA KJKNM1051-99-78 15:19:47274Usnmsfgi HermannANEMIA JXXPR7492-95-98 15:19:0034 [facility]annURINE AND HVGTJ8122-80-54 14:58:00Slight *ABN*(11/29/19 9:58 AM) [facility] MVXNT2167-97-68 14:58:00 Test Item Value Reference Range Interpretation Comments UA Spec Grav (test code = UA Spec 1.015 1 Grav) [facility] AND QUJMD7057-04-51 14:58:00 Test Item Value Reference Range Interpretation Comments UA pH (test code = UA pH) 5.0 1 5.0-8.0 [facility] KFMHD4374-14-85 14:58:00Negative *NA*(11/29/19 9:58 AM) [facility] MSSPN8761-27-77 14:58:00Small *ABN*(11/29/19 9:58 AM) [facility] ZYDOT0346-28-71 14:58:00Negative (11/29/19 9:58 AM) [facility] MQGJS9749-31-36 14:58:00Negative (11/29/19 9:58 AM) [facility] AXUWQ6545-12-43 14:58:002[facility] AND JCGVH8507-32-67 14:58:009[facility] AND DSTDO3560-61-69 14:58:00 <=1.0[facility] HermannCARDIAC DSKHNIU5639-87-66 13:13:000.04[facility] CARDIAC VXDXYPH3483-99-02 09:43:000.04[facility]annCHEM TRPFX0543-55-83 09:43:0099[facility]annCHEM WPBDR0377-27-64 09:43:0029[facility]annCHEM QDRXV1852-33-98 09:43:002.90[facility]annCHEM CYNZG2409-73-62 09:43:13775 [facility]annCHE[facility] HQCOZ3735-51-96 09:43:004.5[facility] HermannCHEM PANEL 2019-11-29 09:43:01351Xyxdzjam HermannCHEM YZGVD2920-47-59 09:43:0026[facility]annCHEM BUFYF3837-99-75 09:43:009.4[facility]annCHEM JIKPJ4608-60-70 09:43:008.0[facility]annCHEM RGXPJ8937-27-17 09:43:003.5[facility]annCHEM ZKTIE5443-87-22 09:43:0034[facility]annCHEM WOHHB9061-95-83 09:43:0020 [facility]annCHEM GQNKX0728-47-74 09:43:0084[facility] HermannCHEM PANEL 2019-11-29 09:43:000.7[facility]annCHEM WLKTG1999-97-88 09:43:0012.5[facility]annCHEM GCIJL0081-94-28 09:43:00 Test Item Value Reference Range Interpretation Comments B/C Ratio (test code = B/C Ratio) 10 1 6-25 [facility]annCHEM CWKHV4875-74-67 09:43:004.5[facility] HermannCHEM PANEL 2019-11-29 09:43:00 Test Item Value Reference Range Interpretation Comments A/G Ratio (test code = A/G Ratio) 0.8 1 0.7-1.6 [facility]annCHE[facility] YDRFR0690-61-50 09:43:0024[facility]annCHEM PANEL 2019-11-29 09:43:002.1[facility]annCHEM FSQFR6028-71-04 09:43:004.3[facility]annCHEM JQQWA1148-32-73 09:43:000.28[facility]annCHEM RHZFD7904-80-91 09:43:001.5[facility] NpzaiyeNAUNXBNYPF9125-99-45 09:43:008.0[facility] ZBDOIXECMN2764-73-39 09:43:001.4[facility] DoourksWSJDBDFLWN3866-87-94 09:43:000.8 [facility] VypotfuABWRCYTHPO4614-71-09 09:43:000.3[facility] HermannHEMATOLOGY 2019-11-29 09:43:0076.0[facility] VyevvpbWZXBROOAEI5917-62-60 09:43:000.0[facility] LxldgmtXVYCWLMQOC5444-26-24 09:43:0012.0[facility] NyttuxbLHONBPDZLW1871-71-46 09:43:008.0[facility] ZejguapHKQHCXYUAB8873-16-67 09:43:003.0[facility] KYMKDUHEZT4571-71-46 09:43:001.0[facility] XsxeodyBRGUIQSQLH3382-07-53 09:43:00 Normal (11/29/19 4:43 AM)[facility] NyeyiyzLECCSKCBHY5453-41-24 09:43:003+ *ABN*(11/29/19 4:43 AM)[facility] HutlhrmJKESNLGUYN1357-55-40 09:43:001+ (11/29/19 4:43 AM)[facility] JweoobiUOGHSCDRUH8421-33-45 09:43:00Moderate *ABN*(11/29/19 4:43 AM)[facility] VvsghvgVQFHTGVEEI4451-68-19 09:43:00Moderate *ABN*(11/29/19 4:43 AM) [facility] EzcrrecWZXSXJCFED1905-86-29 09:43:00Slight *ABN*(11/29/19 4:43 AM) [facility] RzqeupgULLKMUVKCO5371-81-70 09:43:0010.5[facility] HermannHEMATOLOGY 2019-11-29 09:43:006.37[facility] SktfjulPKEXUIWMCA7823-54-68 09:43:0012.2[facility] WdudinaZTZNJTMNPI8619-91-80 09:43:0039.4[facility] ZkwakluPCULEEWPPP9326-22-82 09:43:0061.8[facility] LvownvqMQAJUSUJGH1788-38-20 09:43:00 Test Item Value Reference Range Interpretation Comments MCH (test code = MCH) 19.2 pg 27.0-31.0 [facility] AorpqizNXTFOYRXJM0016-88-31 09:43:0031.0[facility] HermannHEMATOLOGY 2019-11-29 09:43:0016.4[facility] TrkjhslAXWSEFVVEK1559-89-71 09:43:39866Cibcnhgb GyyirybFQKQXITUMB6463-64-40 09:43:009.9[facility] CbeoficYDIYEOQBCO7048-88-54 05:59:00Not Detected (11/29/19 12:59 AM)[facility] HermannCARDIAC DBOQQZD4405-05-94 02:39:96772Ttopvoej HermannCARDIAC ITBEKDX8932-80-99 02:39:000.04[facility] HermannCARDIAC CVTEKXI2958-98-29 02:39:12830Akocrsux HermannCHEM GMAPX1379-42-58 02:39:008.5[facility] HermannCHEM RACSR3942-26-76 02:39:003.6[facility] HermannCHEM ABGNN5033-92-58 02:39:0033[facility]annCHEM ZCLPL5320-86-87 02:39:0024 [facility]annCHEM RNYNB5233-03-80 02:39:0081[facility] HermannCHEM PANEL 2019-11-29 02:39:000.7[facility] HermannCHEM CXUFJ7595-59-41 02:39:000.2[facility] HermannCHEM GVIQZ6320-40-08 02:39:000.5[facility]annCHEM YUAMU8620-20-92 02:39:004.9[facility]annCHEM DTRCX1109-62-37 02:39:00 Test Item Value Reference Range Interpretation Comments A/G Ratio (test code = A/G Ratio) 0.7 1 0.7-1.6 [facility]annCHE[facility] QVWHT6980-78-87 02:39:002.4[facility] HermannCHEM PANEL 2019-11-29 02:39:0097[facility]annCHEM YSXUV4792-82-31 02:39:0026[facility]annCHEM KCRAQ5393-38-58 02:39:003.40[facility]annCHEM VKCKC5264-40-44 02:39:39362Intshmph HermannCHEM DPLVN9257-11-13 02:39:004.0[facility]annCHEM CHJZQ5104-66-07 02:39:04948Xoirqryh HermannCHEM KTZIS5904-85-93 02:39:0026 [facility]annCHEM YHTOM9310-66-22 02:39:0010.4[facility] HermannCHEM PANEL 2019-11-29 02:39:0012.0[facility] HermannCHEM JXXMO0495-22-28 02:39:0019[facility] VvcqdimXWCYSCZEAL4464-08-34 02:39:0010.5[facility] ZbtntzbGOLROQQSOB3448-78-41 02:39:006.24[facility] DzgogwxCIJYSEOBKY7510-73-43 02:39:0012.1[facility] FPXBYQFKPQ1455-19-63 02:39:0039.8[facility] UmeuzzvONHTCTMADP0332-23-14 02:39:00 63.8[facility] NxjjfeuCKQNFKRPAE8270-86-65 02:39:00 Test Item Value Reference Range Interpretation Comments MCH (test code = MCH) 19.3 pg 27.0-31.0 [facility] BkgtpubHKOXAWLVBZ2820-82-29 02:39:0030.3[facility] HermannHEMATOLOGY 2019-11-29 02:39:0016.5[facility] RtwxjazZOONOFFZFE4397-78-65 02:39:56088Xnpbzsxb ZgzfgbzKFJJSXJHVC7441-71-10 02:39:009.4[facility] TanbnkaLPFSWGSGTS6279-26-81 02:39:00 Test Item Value Reference Range Interpretation Comments PT (test code = PT) 14.3 s 12.0-14.7 [facility] LrpcwkwDNZYMQJPYX5908-88-35 02:39:00 Test Item Value Reference Range Interpretation Comments INR (test code = INR) 1.11 1 0.85-1.17 [facility] YyjajmzSNJEYGLJME8674-09-75 02:39:00 Test Item Value Reference Range Interpretation Comments PTT (test code = PTT) 28.6 s 22.9-35.8 [facility] TfodmdpXQPAVIHCSN0409-48-02 02:39:008.4[facility] HermannHEMATOLOGY 2019-11-29 02:39:001.3[facility] XwvpqilEFPGDGAGAJ2981-86-83 02:39:000.7[facility] YjjfsroGGBHBCMPPW6120-48-30 02:39:000.1[facility] WpcuslzNGKVIAIEFA6699-65-63 02:39:0077.0[facility] OlojvgiRKEIFBQNCO9809-97-24 02:39:003.0[facility] ZRWMLLPZLV8818-32-88 02:39:0012.0[facility] RkbsibvEGCCLVCNAB3986-33-71 02:39:00 7.0[facility] NvkalnyGKEKEXPWOW4798-58-38 02:39:001.0[facility] HermannHEMATOLOGY 2019-11-29 02:39:000.0[facility] NwndstrMBPIEPMAWG5029-46-17 02:39:001+ *ABN*(11/28/19 9:39 PM)[facility] HsjgtrqNCADXWJNKZ6639-84-38 02:39:002+ *ABN*(11/28/19 9:39 PM)[facility]vfgzsjNUIWWCHYPM5095-46-38 02:39:001+ (11/28/19 9:39 PM)[facility]ressUaqvkquESEOCMYRIQ0581-91-34 02:39:00Moderate *ABN*(11/28/19 9:39 PM)[facility]ressUpjuhqyWYAMCQJSSP9093-49-86 02:39:00Moderate *ABN*(11/28/19 9:39 PM) [facility] CypressBlyywtdWBUOUVCETG3705-48-97 02:39:00Moderate *ABN*(11/28/19 9:39 PM) [facility] 12 ejyb1058-39-41 05:13:04 Test Item Value Reference Range Interpretation Comments Ventricular rate (test code = 253) Atrial rate (test code = 255) NM interval (test code = 266) QRSD interval (test code = 260) QT interval (test code = 264) QTC interval (test code = 265) P axis 1 (test code = 267) QRS axis 1 (test code = 268) T wave axis (test code = 270) EKG impression (test code = 273) [facility], (w Contrast, Strain and 3D if needed)2019-11-25 17:55:40 Test Item Value Reference Range Interpretation Comments Ao Root Diameter (test code = 2.83 cm 2223015801) AoV Area, Vmax (test code = 1.39 cm2 9215239148) AoV Area, VTI (test code = 1.58 cm2 3922065976) AoV Mean PG (test code = mmHg 5586394297) AoV Peak PG (test code = mmHg 9588502285) AoV Vmax (test code = 1151687710) 3.05 m/s AoV VTI (test code = 8411867984) 0.66 m IVS,d (test code = 6386243229) 1.38 cm IVS/LVPW,2D (test code = 1898130015) Left Atrium Dimension Anterior 4.31 cm (test code = 1552606975) LA Area d A4C (test code = 30.64 cm2 5091860255) LV,d (test code = 6857590138) 5.20 cm LV EF,2D (test code = 8024891534) 50.66 % LV,s (test code = 9318165481) 4.11 cm LVOT area (test code = 5482274029) 3.59 cm2 LVOT Diam,S (test code = 2.14 cm 8903426352) LVOT Vmax (test code = 1613449062) 1.15 m/s LVOT VTI (test code = 9172884981) 0.31 m LVPWD,d (test code = 9679466417) 1.09 cm AR Press Half Time (test code = 661.06 ms 2649305351) MV E A ratio (test code = 2468651851) E wave decelartion time (test code msec = 0759720890) MV Peak A Levon (test code = 0.96 m/s 7231180824) MV valve area p 1/2 method (test 2.63 cm2 code = 4895027632) MV Peak E Levon (test code = 0.74 m/s 6353989978) MV stenosis pressure 1/2 time (test 83.52 ms code = 1599418600) AV LVOT peak gradient (test code = mmHg 2596205552) Ao Root Diameter (test code = 2.83 cm 8418445815) MV mean gradient (test code = mmHg 6681469251) LV SYS VOL (test code = 3674121703) 74.48 ml LV DEE VOL (test code = 129.29 ml 4732789868) LV SV Teich 2D (test code = 54.81 ml 7307927412) LV Vol s Teich PSAX (test code = 74.48 ml 8932096618) MR peak grad (test code = mmHg 7721857349) MV Vmax (test code = 6835170466) 0.98 m MV VTI Tips (test code = 0.31 m 4396983684) AoV Vmn (test code = 6007040863) LV FS Teich 2D (test code = 3963644591) MV AE ratio (test code = 4464017646) AR slope (test code = 7553298661) Ar Vmax (test code = 7886188190) LV FS Cube 2D (test code = 9634351372) LVOT Vmn (test code = 7467892958) Aov area Vmn (test code = 1.29 cm2 0315490590) LA Vol d MOD A4C (test code = 113.22 ml 1266547607) LVOT mean grad (test code = mmHg 1959433179) MAX Pred HR (test code = 5237875459) 85 of MPHR (test code = 5716209485) AR DT (test code = 1425628728) msec AR pk grad (test code = 1212959171) mmHg Calc MPHR (test code = 3230158314) bpm LV SV Cube 2D (test code = 71.07 ml 7849513172) LV vol d cube 2D (test code = 140.30 ml 1048814606) LV vol s cube 2D (test code = 69.23 ml 1802493010) MV Decel slope (test code = 2.61 m/s2 6785451001) Pred Exer Dur R1 (test code = 7014493494) Pred METS R1 (test code = 1700877367) Velocity Ratio (V1/V2) (test code = 0.38 m/s 4689) EF (test code = 8089607931) 42.39 % E/A ratio (test code = 7852479649) ADD (test code = ADD) HATTIE (test code = HATTIE) [facility]) RNA [Presence] in Respiratory specimen by DYLAN with probe xkfwjijal5038-67-94 05:08:24 Test Item Value Reference Range Interpretation Comments SARS-CoV-2 (COVID-19) RNA [Presence] Detected Not-Detected in Respiratory specimen by DYLAN with probe detection (test code = 03170-0) Urine rbzfspt3131-81-66 03:52:48 Test Item Value Reference Range Interpretation Comments Urine culture (test code = SEE COMMENT [id number]) [facility] Xvxsflqp5114-34-54 02:34:15EXAMINATION:CT CHEST WO CONTRAST CLINICAL HISTORY:Shortness of breath, Esophageal reflux TECHNIQUE:Mu ltiple axial images of the chest were obtained without intravenous contrast. The lack of intravenouscontrast reduces the sensitivity of detecting solid organ disease and evaluating vasculature. Sagittal and coronal computerized reformatted images were also obtained. All CT images were acquired usinglow- dose technique with automated exposure control. COMPARISON:None. FINDINGS:1.Heart size is normal. Maximal diameter of the ascending thoracic aorta is 4.3 cm. Pulmonary arterial diameter is 3.6 cm. There are calcifications at the level of the aortic annulus and aortic valve. Mild calcified atheroscl erotic plaque involving the coronary vessels. No significant mediastinal lymphadenopathy. Peripheralsubpleural reticular and patchy nodular opacities predominantly involving the right lung and right lower lobe. There are subtle subpleural groundglass opacities in the left lung. 2.A pleural or pericardial effusion is not identified. No pneumothorax. 3.The airways are patent without significant peribronchial wall thickening or mucous plugging. 4.Limited images to the upper abdomen demonstrates mild circumferential wall thickening of the distal esophagus which may relate to esophagitis. Nonobstructing 1 to 2 mm stones in the upper pole right kidney. Left upper pole renal cyst measures 2.2 cm. IMPRESSION:1.Bilateral peripheral and subpleural opacities more so involving the right lung than the left. Findings likely relate to pneumonia and are suspicious for Covid 19 infection. 2.A frontal wall thickening of the distal esophagus likely relates to esophagitis. 3.Aneurysm involving the ascending aortawith a maximal AP diameter of 4.3 cm. Imaging features can be seen with COVID-19 pneumonia, though are nonspecific and can occur with a variety of infectious and noninfectious processes. Consider isolation and appropriate laboratory testing. [facility]-[id number] [facility], Radiology Results Incoming - 11/24/2019 9:37 PM CDT EXAMINATION:CT CHEST WO CONTRASTCLINICAL HISTORY:Shortness of breath, Esophageal refluxTECHNIQUE:Multiple axial images of the chest were obtained without intravenous contrast. The lack of intravenous contrast reduces the s ensitivity of detecting solid organ disease and evaluating vasculature. Sagittal and coronal computerized reformatted images were also obtained. All CT images were acquired using low-dose technique with automated exposure control.COMPARISON:None.FINDINGS:1.Heart size is normal. Maximal diameter of the ascending thoracic aorta is 4.3 cm. Pulmonary arterial diameter is 3.6 cm. There are calcificationsat the level of the aortic annulus and aortic valve. Mild calcified atherosclerotic plaque involvingthe coronary vessels. No significant mediastinal lymphadenopathy. Peripheral subpleural reticular and patchy nodular opacities predominantly involving the right lung and right lower lobe. There are subtle subpleural groundglass opacities in the left lung.2.A pleural or pericardial effusion is not identified. No pneumothorax.3.The airways are patent without significant peribronchial wall thickening ormucous plugging.4.Limited images to the upper abdomen demonstrates mild circumferential wall thickening of the distal esophagus which may relate to esophagitis. Nonobstructing 1 to 2 mm stones in the upper pole right kidney. Left upper pole renal cyst measures 2.2 cm.IMPRESSION:1.Bilateral peripheral and subpleural opacities more so involving the right lung than the left. Findings likely relate to pneumonia and are suspicious for Covid 19 infection.2.A frontal wall thickening of the distal esophaguslikely relates to esophagitis.3.Aneurysm involving the ascending aorta with a maximal AP diameter of4.3 cm.Imaging features can be seen with COVID-19 pneumonia, though are nonspecific and can occur with a variety of infectious and noninfectious processes. Consider isolation and appropriate laboratorytesting.[facility]-[id number] [facility] [place] [facility] Preliminary Interpretation - Not an Tkwrn8241-03-01 20:56:11Meera Butts MD 11/27/2019 8:21 [facility] Preliminary Interpretation - Not an OrderPerformed by: Ania Rosas NPAuthorized by: Ania Rosas NP ECG reviewed by EDPhysician in the absence of a drying supervisor: yes Interpretation: Interpretation: non-specific Rate: ECG rate: 77 ECG rate assessment: normal Rhythm: Rhythm: sinus rhythm Ectopy: Ectopy: PAC QRS: QRS axis: Normal (86) QRS intervals: NormalConduction: Conduction: normal T waves: T waves: non-specific Other findings: Other findings: prolonged qTc intervalBaylor Scott & [facility] PointeXR Chest 1 Cfisbthr6103-48-44 20:51:33EXAMINATION: XR CHEST 1 PORTABLE CLINICAL HISTORY: 74 years Male SOB COMPARISON: None. IMPRESSION: The cardiomediastinal silhouette is slightly enlarged The lungs are clear Age related changes in the osseous structures. . . [facility], Radiology Results 11/24/2019 3:54 PM CDT EXAMINATION: XR CHEST 1 PORTABLECLINICAL HISTORY: 74 years Male SOBCOMPARISON: None.IMPRESSION:The cardiomediastinal silhouette is slightly enlarged The lungs are clear Age related changes in the osseous structures...[facility] 12:32:008.5[facility] HermannCHEM SEFNT6813-31-56 12:32:0056[facility] HermannCHEM RYWLU6630-94-37 12:32:0027[facility] HermannCHEM XYNAA8730-94-23 12:32:009.8[facility] HermannCHEM XYHUW6039-28-45 12:32:23520Wzmmileh HermannCHEM QINMB5544-84-11 12:32:003.8[facility] HermannCHEM TEZHJ7973-54-62 12:32:09589 [facility]annCHEM XINPN5218-95-67 12:32:48368Jegvscae HermannCHEM PANEL 2015-03-15 12:32:0018[facility] HermannCHEM KYCOD9347-20-28 12:32:001.45[facility] HermannCHEM ALHRZ0837-74-21 09:17:0052[facility] HermannCHEM MMFDO6238-14-80 09:17:85439Wsxifqqk HermannCHEM JLQRE0702-46-04 09:17:12972Qaukchtn HermannCHEM KQQDN2391-52-86 09:17:0025[facility] HermannCHEM URPFI8192-59-43 09:17:009.0 [facility]annCHEM HHBJZ5060-06-44 09:17:005.7[facility] HermannCHEM PANEL 2015-03-15 09:17:22451Tntgwkrm HermannCHEM EYMAK3279-62-90 09:17:0021[facility] HermannCHEM AIOVI2739-39-74 09:17:001.55[facility] HermannCHEM HJKDT1397-79-06 09:17:0015.7[facility] HyiditsIVVCXJJGGO3630-04-88 09:17:0029.7[facility] GUQBZUQNYF6202-65-25 09:17:009.4[facility] RosubwlZEIUEKGYER4719-65-19 09:17:001.0 [facility] QqgrzgdXSBGFZNJFR9857-63-05 09:17:004.6[facility] HermannHEMATOLOGY 2015-03-15 09:17:002.1[facility] XdkexaiNKLVODRPUJ4715-28-05 09:17:004.0[facility] OtjfbizIJEFBMPGRF7485-45-55 09:17:000.1[facility] EnwbxnpQIJACKQKUJ7775-86-53 09:17:000.3[facility] JfvcmmhMGIFUHLGRY1396-68-17 09:17:0055.3[facility] LAKFTVYRDG9617-67-07 09:17:003+ *NA*(03/15/15 3:17 AM)[facility]annHEMATOLOGY 2015-03-15 09:17:000.7[facility] OkjuxkbULFOQCFJKG6521-59-37 09:17:00Moderate *ABN*(03/15/15 3:17 AM)[facility] GrtxraeVFTUDYYBRM6477-96-20 09:17:001+ (03/15/15 3:17 AM)[facility] KdlumheFCXEYPBOOC7732-81-38 09:17:001+ *ABN*(03/15/15 3:17 AM) [facility] AlpntynRDRYJDKSWZ7423-05-89 09:17:001.23[facility] HermannHEMATOLOGY 2015-03-15 09:17:00 Test Item Value Reference Range Interpretation Comments PT (test code = PT) 15.8 s 12.0-14.7 [facility] GzdowfkWUCHLQBCNQ6254-91-92 09:17:00 Test Item Value Reference Range Interpretation Comments PTT (test code = PTT) 37.7 s 22.9-35.8 [facility] GctnxmaAKSFMCZVPA1003-24-56 09:17:00 Test Item Value Reference Range Interpretation Comments MCH (test code = MCH) 18.8 pg 27.0-31.0 [facility] WacelxbYLOPVOFKGV5141-49-49 09:17:0062.9[facility] 2015-03-15 09:17:009.0[facility] UphzzxqIWTAJZNDDB5374-05-73 09:17:25558Fhrzwvjp WqdvrhkIONQYRJBMK4033-86-34 09:17:0018.2[facility] RjwtngiCOGJLUKQJV6381-67-61 09:17:0029.9[facility] AbrgebqWFJYOIAXJB4995-23-76 09:17:0041.1[facility] KYJSPFNAST1583-26-13 09:17:0012.3[facility] AbfpylvNLPGGSYNRD5760-27-49 09:17:00 6.7[facility] XhvrhjjNVADGCWNIB6594-88-89 09:17:006.54[facility]
[2020-11-20 08:52] LABS: Protime INR 1.16
[2020-11-20 08:53] LABS: Hematocrit 35.3 % (39.6-49.0); MPV 8.7 fL (7.6-11.3); RBC Red Blood Cell Count 5.67 M/uL (4.33-5.43)
[2020-11-20 09:03] LABS: Potassium 3.5 mmol/L (3.5-5.1); Troponin (Emerg Dept Use Only) 0.03 ng/mL (0.0-0.045)
[2020-11-20] MEDS ORDERED: FUROSEMIDE 40 MG/4 ML VIAL ONE ×2 (09:27→19:04)
[2020-11-20] MEDS ORDERED: FUROSEMIDE 20 MG/ 2ML VIAL ONE (09:27)
--- NOTE | 2020-11-20 09:42 | RAD REPORT ---
EXAM DESCRIPTION: RAD - Chest Single View - 11/20/2020 8:00 am CLINICAL HISTORY: Chest pain;Cough;Dyspnea Chest pain. COMPARISON: Chest Single View dated 06/25/2020; Chest Single View dated 02/26/2020; Chest Single View d ated 04/06/2019; Chest Single View dated 11/24/2018 FINDINGS: Portable technique limits examination quality. Mild pulmonary edema is suspected. The heart is moderately enlarged with a tortuous thoracic aorta. N o displaced fractures. IMPRESSION: Mild to moderate CHF.
[2020-11-20 09:51] LABS: Anisocytosis 1+; Blood Morphology Comment NOTED (NOT SEEN); Hypochromasia 2+; Platelet Estimate ADEQ
--- NOTE | 2020-11-20 09:53 | ER ---
Nurse's Notes [facility] Name: Tal Cornejo Age: 75 yrs Sex: Male : 1945 Arrival Date: 11/20/2020 Time: 07:39 Bed 14 Private MD: Diagnosis: Unspecified combined systolic (congestive) and diastolic (congestive) heart failure;Acute pulmonary edema;Dyspnea, unspecified Presentation: 11/20 07:45 Chief complaint: EMS states: "75 year old male reporting shortness of breath and chest jd3 pressure/pain for about 2 months now.". Coronavirus screen: At this time, the client does not indicate any symptoms associated with coronavirus-19. Ebola Screen: Patient negative for fever greater than or equal to 101.5 degrees Fahrenheit, and additional compatible Ebola Virus Disease symptoms. Initial Sepsis Screen: Does the patient meet any 2 criteria? No. Patient's initial sepsis screen is negative. Does the patient have a suspected source of infection? No. Patient's initial sepsis screen is negative. Risk Assessment: Do you want to hurt yourself or someone else? Patient reports no desire to harm self or others. Onset of symptoms was September 20, 2020. 07:45 Method Of Arrival: EMS: [facility] jd3 07:45 Acuity: MARTITA 3 jd3 Historical: - Allergies: 07:47 No Known Allergies; jd3 - PMHx: 07:47 Diabetes - NIDDM; DVT; Gout; Hyperlipidemia; Hypertension; LYMPHODEMA; PE; jd3 - Immunization history:: Adult Immunizations up to date. - Social history:: Smoking status: Patient denies any tobacco usage or history of. - Family history:: not pertinent. - Hospitalizations: : No recent hospitalization is reported. Screenin:44 Abuse screen: Denies threats or abuse. Nutritional screening: No deficits noted. jd3 Tuberculosis screening: No symptoms or risk factors identified. Fall Risk Ambulatory Aid- None/Bed Rest/Nurse Assist (0 pts). Gait- Normal/Bed Rest/Wheelchair (0 pts) Mental Status- Oriented to own ability (0 pts). Total Leigh Fall Scale indicates No Risk (0-24 pts). Assessment: 08:42 General: Appears in no apparent distress. comfortable, Behavior is calm, cooperative, jd3 appropriate for age. Pain: Complains of pain in chest Quality of pain is described as aching, pressure, Is intermittent. Neuro: Level of Consciousness is awake, alert, obeys commands, Oriented to person, place, time, situation. Cardiovascular: Capillary refill < 3 seconds Patient's skin is warm and dry. Rhythm is irregular. Respiratory: Reports shortness of breath on exertion Airway is patent Respiratory effort is even, unlabored, Respiratory pattern is regular, symmetrical, Denies cough. GI: No signs and/or symptoms were reported involving the gastrointestinal system. : No signs and/or symptoms were reported regarding the genitourinary system. EENT: No signs and/or symptoms were reported regarding the EENT system. Derm: Skin is intact, Skin is dry, Skin is normal, Skin temperature is warm. Musculoskeletal: Circulation, motion, and sensation intact. Range of motion: intact in all extremities. 09:50 Reassessment: Patient appears in no apparent distress at this time. No changes from jd3 previously documented assessment. Patient and/or family updated on plan of care and expected duration. Pain level reassessed. Patient is alert, oriented x 3, equal unlabored respirations, skin warm/dry/pink. 11:53 Reassessment: Patient appears in no apparent distress at this time. No changes from jd3 previously documented assessment. Patient and/or family updated on plan of care and expected duration. Pain level reassessed. Patient is alert, oriented x 3, equal unlabored respirations, skin warm/dry/pink. 13:41 Reassessment: Patient appears in no apparent distress at this time. No changes from jd3 previously documented assessment. Patient and/or family updated on plan of care and expected duration. Pain level reassessed. Patient is alert, oriented x 3, equal unlabored respirations, skin warm/dry/pink. awaiting admission. 14:55 Reassessment: Patient appears in no apparent distress at this time. No changes from jd3 previously documented assessment. Patient and/or family updated on plan of care and expected duration. Pain level reassessed. Patient is alert, oriented x 3, equal unlabored respirations, skin warm/dry/pink. 16:45 Reassessment: Patient appears in no apparent distress at this time. Patient and/or jd3 family updated on plan of care and expected duration. Pain level reassessed. Patient is alert, oriented x 3, equal unlabored respirations, skin warm/dry/pink. awaiting admission, pt to be admitted to floor per laborer cook house. 19:49 General: report called to rn. ak2 Vital Signs: 07:47 BP 120 / 76; Pulse 83; Resp 20 S; Temp 97.8(O); Pulse Ox 98% on R/A; Weight 122.47 kg jd3 (R); Height 6 ft. 1 in. (185.42 cm) (R); Pain 6/10; 08:41 BP 118 / 80; Pulse 78; Resp 15 S; Pulse Ox 96% on R/A; jd3 09:51 BP 134 / 76; Pulse 81; Resp 17 S; Pulse Ox 96% on R/A; jd3 11:54 BP 107 / 59; Pulse 72; Resp 18 S; Pulse Ox 100% on R/A; jd3 13:41 BP 116 / 67; Pulse 69; Resp 19 S; Pulse Ox 100% on R/A; jd3 14:55 BP 129 / 77; Pulse 77; Resp 17 S; Pulse Ox 97% on R/A; jd3 16:46 BP 119 / 71; Pulse 68; Resp 18 S; Pulse Ox 99% on R/A; jd3 07:47 Body Mass Index 35.62 (122.47 kg, 185.42 cm) jd3 ED Course: 07:39 Patient arrived in ED. rn 07:39 Timothy Brewer MD is Attending Physician. rn 07:45 Roberto Bartlett RN is Primary Nurse. jd3 07:47 Triage completed. jd3 07:48 Arm band placed on. jd3 08:00 XRAY Chest (1 view) In Process Unspecified. EDMS 08:32 Inserted saline lock: 20 gauge in right forearm, using aseptic technique. Blood jd3 collected. 08:44 Patient has correct armband on for positive identification. Placed in gown. Bed in low jd3 position. Call light in reach. Side rails up X2. monitoring specialist on. Pulse ox on. NIBP on. 09:52 Lv Ibarra is Hospitalizing Provider. rn 19:30 Primary Nurse role handed off by Roberto Bartlett, RN mw2 Administered Medications: 09:10 Drug: Lasix (furosemide) 60 mg Route: IVP; Site: right forearm; jd3 10:00 Follow up: Response: No adverse reaction jd3 Output: 11:54 Urine: 2000ml (Voided); Total: 2000ml. jd3 18:00 Urine: 1300ml (Voided); Total: 3300ml. jd3 Outcome: 09:53 Decision to Hospitalize by Provider. rn 19:55 Patient left the ED. mw2 Signatures: Dispatcher [employer] EDTimothy Shrestha MD MD rn Davies, Jonathon, RN RN jd3 [place], MyKena mw2 Sancho Hitchcock ma2 Corrections: (The following items were deleted from the chart) 13:42 13:41 Reassessment: Patient appears in no apparent distress at this time. No changes jd3 from previously documented assessment. Patient and/or family updated on plan of care and expected duration. Pain level reassessed. Patient is alert, oriented x 3, equal unlabored respirations, skin warm/dry/pink. jd3
--- NOTE | 2020-11-20 09:54 | EDPHYS ---
Physician Documentation [facility] Name: Tal Cornejo Age: 75 yrs Sex: Male : 1945 Arrival Date: 11/20/2020 Time: 07:39 Bed 14 Private MD: ED Physician Timothy Brewer HPI: 11/20 07:40 This 75 yrs old Black Male presents to ER via Unassigned with complaints of Pain and rn shortness of breath. 07:40 The patient has shortness of breath at rest, with light activity, that woke him/her rn from sleep. Onset: The symptoms/episode began/occurred 2 month(s) ago. Duration: The symptoms are intermittent. The patient's shortness of breath is aggravated by light activity, supine position, talking, walking. Associated signs and symptoms: Pertinent positives: chest pain, non-productive cough, Pertinent negatives: dizziness, fever, hemoptysis, loss of consciousness. Severity of symptoms: At their worst the symptoms were moderate in the emergency department the symptoms are unchanged. The patient has experienced similar episodes in the past. The patient has not recently seen a physician. Patient reports intermittent chest pain and shortness of breath. States happened for the last 2 months. Worse when lying flat, and walking. States supposed to take Lasix for his congestive heart failure but does not because urinates too much. Denies fever. Positive for nonproductive cough.. Historical: - Allergies: 07:47 No Known Allergies; jd3 - PMHx: 07:47 Diabetes - NIDDM; DVT; Gout; Hyperlipidemia; Hypertension; LYMPHODEMA; PE; jd3 - Immunization history:: Adult Immunizations up to date. - Social history:: Smoking status: Patient denies any tobacco usage or history of. - Family history:: not pertinent. - Hospitalizations: : No recent hospitalization is reported. ROS: 07:40 Constitutional: Negative for fever, chills, and weight loss, Eyes: Negative for injury, rn pain, redness, and discharge, ENT: Negative for injury, pain, and discharge, Neck: Negative for injury, pain, and swelling, Cardiovascular: Negative for palpitations Respiratory: Negative for wheezing, and pleuritic chest pain, Abdomen/GI: Negative for abdominal pain, nausea, vomiting, diarrhea, and constipation, Back: Negative for injury and pain, : Negative for injury, bleeding, discharge, and swelling, MS/Extremity: Positive swelling bilateral lower extremities Skin: Negative for injury, rash, and discoloration, Neuro: Negative for headache, weakness, numbness, tingling, and seizure. 07:40 All other systems are negative. rn Exam: 07:40 Constitutional: This is a well developed, well nourished patient who is awake, alert, rn and in no acute distress. Head/Face: Normocephalic, atraumatic. Eyes: Periorbital areas with no swelling, redness, or edema. ENT: No stridor Cardiovascular: Regular rate and rhythm. No pulse deficits. Respiratory: No increased work of breathing, no retractions or nasal flaring. Abdomen/GI: Soft, nontender. Skin: Warm, dry MS/ Extremity: Pulses equal, no cyanosis. Neurovascular intact. Full, normal range of motion. Equal circumference. 3+ pitting edema bilateral lower extremities Neuro: Awake and alert, GCS 15 09:19 ECG was reviewed by the Attending Physician. rn Vital Signs: 07:47 BP 120 / 76; Pulse 83; Resp 20 S; Temp 97.8(O); Pulse Ox 98% on R/A; Weight 122.47 kg jd3 (R); Height 6 ft. 1 in. (185.42 cm) (R); Pain 6/10; 08:41 BP 118 / 80; Pulse 78; Resp 15 S; Pulse Ox 96% on R/A; jd3 09:51 BP 134 / 76; Pulse 81; Resp 17 S; Pulse Ox 96% on R/A; jd3 11:54 BP 107 / 59; Pulse 72; Resp 18 S; Pulse Ox 100% on R/A; jd3 13:41 BP 116 / 67; Pulse 69; Resp 19 S; Pulse Ox 100% on R/A; jd3 14:55 BP 129 / 77; Pulse 77; Resp 17 S; Pulse Ox 97% on R/A; jd3 16:46 BP 119 / 71; Pulse 68; Resp 18 S; Pulse Ox 99% on R/A; jd3 07:47 Body Mass Index 35.62 (122.47 kg, 185.42 cm) jd3 MDM: 07:39 Patient medically screened. rn 09:19 Data interpreted: manager monitoring: rate is 78 beats/min, rhythm is normal sinus rhythm, rn regular, with no ectopy, Interpretation: normal rate, normal rhythm, Pulse oximetry: on room air is 96 %. Interpretation: acceptable. 09:51 Differential diagnosis: Anemia CHF exacerbation, Myocardial Infarction pneumonia, rn Pneumothorax pulmonary edema. Data reviewed: vital signs, nurses notes, lab test result(s), EKG, radiologic studies, plain films, and as a result, I will admit patient. Test interpretation: by ED physician or midlevel provider: ECG, plain radiologic studies, X-ray shows moderate pulmonary edema.. Counseling: I had a detailed discussion with the patient and/or guardian regarding: the historical points, exam findings, and any diagnostic results supporting the discharge/admit diagnosis, lab results, radiology results, the need for further work-up and treatment in the hospital. Response to treatment: the patient's symptoms have mildly improved after treatment, and as a result, I will admit patient. Admission orders: after a detailed discussion of the patient's condition and case, the admit orders are written by me. ED course: Patient with moderate CHF exacerbation, most likely due to medication noncompliance. Given Lasix here, patient still states feels short of breath and is having trouble laying flat. Reports increased exertional dyspnea. Will admit to hospitalist service for further diuresis.. 11/20 07:40 Order name: Basic Metabolic Panel; Complete Time: 09:29 rn 11/20 07:40 Order name: CBC with Diff; Complete Time: 10:00 rn 11/20 07:40 Order name: NT PRO-BNP; Complete Time: 09:29 rn 11/20 07:40 Order name: PT-INR; Complete Time: : rn 11/20 07:40 Order name: Troponin (emerg Dept Use Only); Complete Time: 09:29 rn 11/20 08:55 Order name: Manual Differential; Complete Time: 10:00 EDMS 11/20 07:40 Order name: XRAY Chest (1 view); Complete Time: 09:48 rn 11/20 07:40 Order name: EKG; Complete Time: 07:40 rn 11/20 07:40 Order name: Cardiac monitoring; Complete Time: 08:32 rn 11/20 07:40 Order name: EKG - Nurse/Tech; Complete Time: 08:32 rn 11/20 12:25 Order name: SARS-COV-2 RT PCR EDMS 11/20 17:53 Order name: Troponin I [facility] 11/20 07:40 Order name: IV Saline Lock; Complete Time: 08:32 rn 11/20 07:40 Order name: Labs collected and sent; Complete Time: 08:32 rn 11/20 07:40 Order name: O2 Per Protocol; Complete Time: 08:32 rn 11/20 07:40 Order name: O2 Sat Monitoring; Complete Time: 08:32 rn EC:19 Rate is 75 beats/min. Rhythm is regular. Left axis deviation noted. QRS is positive in rn lead I and negative in lead aVF. WV interval is normal. QRS interval is normal. QT interval is prolonged at 504 msec. No Q waves. T waves are Inverted in leads V2, V3, V4, V5, V6. No ST changes noted. Clinical impression: NSR w/ Non-specific ST/T Changes. Interpreted by me. Reviewed by me. Administered Medications: 09:10 Drug: Lasix (furosemide) 60 mg Route: IVP; Site: right forearm; jd3 10:00 Follow up: Response: No adverse reaction jd3 Disposition Summary: 11/20/20 09:53 Hospitalization Ordered Hospitalization Status: Inpatient Admission rn Provider: Lv Ibarra rn Location: Telemetry/MedSurg (Inpatient) rn Condition: Stable rn Problem: an acute exacerbation rn Symptoms: have improved rn Bed/Room Type: Standard rn Room Assignment: 203(11/20/20 19:14) dw Diagnosis - Unspecified combined systolic (congestive) and diastolic (congestive) heart failure rn - Acute pulmonary edema rn - Dyspnea, unspecified rn Forms: - Medication Reconciliation Form rn - SBAR form rn Signatures: Dispatcher [employer] Alessandra Barron RN RN dw Nieto, Roman, MD MD rn Davies, Jonathon, RN RN jd3 Corrections: (The following items were deleted from the chart) 07:43 07:40 Constitutional: This is a well developed, well nourished patient who is awake, rn alert, and in no acute distress. Head/Face: Normocephalic, atraumatic. Eyes: Periorbital areas with no swelling, redness, or edema. Cardiovascular: Regular rate and rhythm. No pulse deficits. Respiratory: Lungs have equal breath sounds bilaterally, clear to auscultation and percussion. No rales, rhonchi or wheezes noted. No increased work of breathing, no retractions or nasal flaring. Abdomen/GI: Soft, non-tender, with normal bowel sounds. No distension or tympany. No guarding or rebound. No evidence of tenderness throughout. sven 11:28 10:12 CORONAVIRUS+MR.LAB.BRZ ordered. EDMS EDMS 19:14 09:53 sven dw
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
[2020-11-20] MEDS: FUROSEMIDE 40 MG/4 ML VIAL IV SCH (17:00)
[2020-11-20 21:09] VITALS: BMI 33.0
[2020-11-20] MEDS: RIVAROXABAN 20 MG TABLET PO SCH (21:15)
[2020-11-20] MEDS ORDERED: PNEUMOCOCCAL VACCINE 0.5 ML IMVAC ONE (21:34)
[2020-11-21 05:51] LABS: Magnesium 1.9 mg/dL (1.8-2.4); Phosphorus 3.4 mg/dL (2.5-4.9); Potassium 3.7 mmol/L (3.5-5.1)
[2020-11-21 06:07] LABS: Hematocrit 36.9 % (39.6-49.0); MPV 9.1 fL (7.6-11.3); RBC Red Blood Cell Count 5.97 M/uL (4.33-5.43)
[2020-11-21 07:25] LABS: Platelet Estimate DECR
[2020-11-21 07:26] LABS: Anisocytosis 1+; Blood Morphology Comment NOTED (NOT SEEN); Hypochromasia 2+; Target Cells 1+
[2020-11-21] MEDS ORDERED: PNEUMOCOCCAL VACCINE 0.5 ML IMVAC ONE (08:00)
[2020-11-21] MEDS: FUROSEMIDE 40 MG/4 ML VIAL IV SCH ×2 (08:55→16:34)
[2020-11-21] MEDS ORDERED: ASPIRIN EC 81 MG TAB PO SCH (09:00)
[2020-11-21] MEDS ORDERED: POTASSIUM CL SA 10 MEQ TAB PO ONE (09:00)
--- NOTE | 2020-11-21 09:06 | EKG ---
Test Date: 2020-11-20 Test Time: 08:18:39 Tare Man: KYLIE MEASUREMENT RESULTS: Intervals: Rate: 75 VT: 156 QRSD: 76 QT: 452 QTc: 504 [place]: P: 28 VT: 156 QRS: -34 T: -45 INTERPRETIVE STATEMENTS: Sinus rhythm with marked sinus arrhythmia Left axis deviation Minimal voltage criteria for LVH, may be normal variant Nonspecific T wave abnormality Prolonged QT Abnormal ECG Compared to ECG 06/25/2020 12:36:03 Left-axis deviation now present T-wave abnormality still present Electronically Signed On 11-21-20 09:04:08 CDT by Tien Oliva
--- NOTE | 2020-11-21 12:51 | P.DS ---
Admission Date: 11/20/20 Discharge Date: 11/21/20 Disposition: ROUTINE DISCHARGE Discharge Condition: FAIR Reason for Admission: Shortness of breath - Problems (1) Acute on chronic diastolic (congestive) heart failure Current Visit: Yes Status: Acute (2) History of DVT of lower extremity Current Visit: Yes Status: Acute (3) Lower extremity edema Onset Date: 04/10/16 Current Visit: No Status: Acute (4) Moderate to severe aortic valve regurgitation Current Visit: No Status: Acute (5) DM2 (diabetes mellitus, type 2) Onset Date: 04/24/17 Current Visit: No Status: Chronic Qualifiers: Diabetes mellitus detention insulin use: without manager telecom use Diabetes mellitus complication status: with neurologic complications Diabetes mellitus complication detail: with polyneuropathy Qualified Code(s): E11.42 - Type 2 diabetes mellitus with diabetic polyneuropathy (6) Edema Onset Date: 11/01/14 Current Visit: No Status: Chronic Qualifiers: Edema type: unspecified Qualified Code(s): R60.9 - Edema, unspecified (7) HTN (hypertension) Onset Date: 05/31/15 Current Visit: No Status: Chronic Qualifiers: Hypertension type: essential hypertension Qualified Code(s): I10 - Essential (primary) hypertension Brief History of Present Illness: 75-year-old gentleman with a history of congestive heart failure, aortic stenosis by most recent echocardiogram presented to the emergency department with progressive shortness of breath, orthopnea and progressive lower extremity swelling. Patient reports noncompliance with his medications especially the Lasix stating he wakes up multiple times at night to urinate so he stopped taking his Lasix. He denied any chest pain, he denied any cough. Workup in the emergency department with chest x-ray demonstrates pulmonary edema. Patient has significant bilateral lower extremity edema. He reports history of lower extremity DVT for which he has been told he needs to take anticoagulation for life. Patient not taking any medication at home. EKG shows sinus rhythm with nonspecific ST-T changes. Patient given a dose of Lasix in the ED with some improvement in his symptoms. He is hospitalized for further management. Hospital Course: Patient placed under observation on the medical floor and treated with IV Lasix for acute heart failure. Noted patient has a history of moderate to severe aortic stenosis. His blood pressure was stable with diuresis. His lower extremity edema improved significantly. His shortness of breath also resolved. Patient did not require oxygen. He now appear compensated for CHF and deemed stable for discharge. Echocardiogram was done Vital Signs/Physical Exam: Temp Pulse Resp BP Pulse Ox 99.2 F 79 16 138/65 97 11/21/20 12:00 11/21/20 12:00 11/21/20 12:00 11/21/20 12:00 11/21/20 12:00 General: Alert, In no apparent distress, Oriented x3 HEENT: Mucous membr. moist/pink Neck: JVD not distended Respiratory: Clear to auscultation bilaterally, Normal air movement Cardiovascular: Regular rate/rhythm, Normal S1 S2, Edema (Lower extremity edema significantly improved.) Gastrointestinal: Normal bowel sounds, Soft and benign, Non-distended Musculoskeletal: No tenderness Integumentary: No rashes Neurological: Normal speech, Normal strength at 5/5 x4 extr Laboratory Data at Discharge: WBC 5.20 K/uL (4.3-10.9) 11/21/20 04:56 Hgb 11.5 g/dL (13.6-17.9) L 11/21/20 04:56 Hct 36.9 % (39.6-49.0) L 11/21/20 04:56 Plt Count 150 K/uL (152-406) L 11/21/20 04:56 PT 13.4 SECONDS (9.5-12.5) H 11/20/20 08:29 INR 1.16 11/20/20 08:29 Sodium 146 mmol/L (136-145) H 11/21/20 04:56 Potassium 3.7 mmol/L (3.5-5.1) 11/21/20 04:56 BUN 19 mg/dL (7-18) H 11/21/20 04:56 Creatinine 1.45 mg/dL (0.55-1.3) H 11/21/20 04:56 Glucose 83 mg/dL (74-106) 11/21/20 04:56 Phosphorus 3.4 mg/dL (2.5-4.9) 11/21/20 04:56 Magnesium 1.9 mg/dL (1.8-2.4) D 11/21/20 04:56 Troponin I 0.02 ng/mL (0.0-0.045) 11/21/20 00:35 Triglycerides 39 mg/dL (<150) 11/21/20 04:56 Cholesterol 200 mg/dL (<200) 11/21/20 04:56 HDL Cholesterol 64 mg/dL (40-60) H 11/21/20 04:56 Cholesterol/HDL Ratio 3.13 11/21/20 04:56 Home Medications: Aspirin [Aspirin EC] 81 mg PO DAILY #30 tablet. 11/21/20 Atorvastatin Calcium [Lipitor] 20 mg PO BEDTIME #30 tab 11/21/20 Furosemide [Lasix] 40 mg PO DAILY #30 tab 11/21/20 Metoprolol Tartrate 25 mg PO BID #60 tablet 11/21/20 Rivaroxaban [Xarelto] 20 mg PO DAILY #30 tablet 11/21/20 New Medications: Aspirin [Aspirin EC] 81 mg PO DAILY #30 tablet. Furosemide [Lasix] 40 mg PO DAILY #30 tab Atorvastatin Calcium [Lipitor] 20 mg PO BEDTIME #30 tab Metoprolol Tartrate 25 mg PO BID #60 tablet Rivaroxaban [Xarelto] 20 mg PO DAILY #30 tablet Diet: AHA Activity: Ad fabiano Followup: Unknown,U [Primary Care Provider] - 1 Week (Follow up with [facility] [place] )
--- NOTE | 2020-11-21 13:56 | ECHO ---
HEIGHT: 6 ft 1 in WEIGHT: 250 lb 3.2 oz DATE OF STUDY: 11/21/[address]: aden ovalle 2-DIMENSIONAL: YES M.MODE: YES DOPPLER: YES COLOR FLOW: YES TDS: NO PORTABLE: NO DEFINITY: NO BUBBLE STUDY: NO DIAGNOSIS: CONGESTIVE HEART FAILURE CARDIAC HISTORY: CATHERIZATION: SURGERY: PROSTHETIC VALVE: PACEMAKER: MEASUREMENTS (cm) DIASTOLIC (NORMALS) SYSTOLIC (NORMALS) IVSd 1.2 (0.6-1.2) LA Diam 5.0 (1.9-4.0) LVEF 55% LVIDd 5.9 (3.5-5.7) LVIDs 4.2 (2.0-3.5) %FS 29% LVPWd 1.3 (0.6-1.2) Ao Diam 2.9 (2.0-3.7) 2 DIMENSIONAL ASSESSMENT: RIGHT ATRIUM: NORMAL LEFT ATRIUM: NORMAL RIGHT VENTRICLE: NORMAL LEFT VENTRICLE: NORMAL TRICUSPID VALVE: NORMAL MITRAL VALVE: NORMAL PULMONIC VALVE: NORMAL AORTIC VALVE: NORMAL PERICARDIAL EFFUSION: NONE AORTIC ROOT: NORMAL LEFT VENTRICULAR WALL MOTION: NORMAL DOPPLER/COLOR FLOW: MODERATE AORTIC REGURGITATION. MILD MITRAL AND TRICUSPID REGURGITATION. COMMENTS: MODERATE AORTIC REGURGITATION. MILD MITRAL AND TRICUSPID REGURGITATION. NO WALL MOTION ABNORMALITY. NO EFFUSION. TECHNOLOGIST: Mohamud PEREZ
[2020-11-21 16:28] VITALS: BP 129/77; TEMP 98.9
[2020-11-21] MEDS: RIVAROXABAN 20 MG TABLET PO SCH (16:34)
[2020-11-21 17:32] VITALS: O2SAT 98
== END 2020-11-21 20:54 | disposition home or self-care (01) ==
LOC: ER 07:33 → ERHOLD 12:31 → 2ND 19:32
PROVIDERS: ADMIT Internal Medicine; ATTEND Internal Medicine
DX: I11.0 Hypertensive heart disease with heart failure (principal); I50.33 Acute on chronic diastolic (congestive) heart failure; I35.1 Nonrheumatic aortic (valve) insufficiency; E11.42 Type 2 diabetes mellitus with diabetic polyneuropathy; N28.9 Disorder of kidney and ureter, unspecified; M10.9 Gout, unspecified; E78.5 Hyperlipidemia, unspecified; Z91.14 Patient's other noncompliance with medication regimen; Z86.718 Personal history of other venous thrombosis and embolism; Z79.01 Long term (current) use of anticoagulants; Z20.822 Contact with and (suspected) exposure to COVID-19
CPT/HCPCS: 93005; 93306; 85025 ×2; 80048 ×2; 36415; 83735; 84100; 85610; 80061; 82947; 84484 ×4; 83880; 71045; 94760 ×2; 96374; 99284; U0003; J1940 ×5; G0378 ×3

== ENCOUNTER 2021-03-29 18:35 | Inpatient (IN) | payer OTHER ==
--- OUTSIDE RECORDS SUMMARY | 2021-03-29 18:38 | XMS REPORT | Continuity of Care Document ---
:1945 Author Organization [facility] t Address [address] [place] [address] Care Team Providers Name Role Phone Asked, Pcp Primary Care Physician Unavailable Sunday CAMARGO Attending Clinician ROYER BLANK Attending Clinician Unavailable Gabe Butts MD Attending Clinician Sheikh MARY JO Attending Clinician Dung Frazier Attending Clinician ROYER BLANK Admitting Clinician Unavailable Admitting Clinician Unavailable Payers Payer Name Policy Type Policy Effective Date Expiration Date Sour ce Number MEDICAREMEDICARE PART [id number] 2010 [facility] KtaecxyoMQ540/04/2010- 00:00:[place] Condition Condition Condition Status Onset Resolution Last Treating Co mments Source Name Details Category Date Date Treatment Clinician Date COVID-19 COVID-19 Disease Active Metho di virus virus 11-24 detected detected 00:00: Hospit a 00 l Shortness Shortness Disease Active Met hodi of breath of breath 11-23 00:00: Hospita 00 l Allergies, Adverse Reactions, Alerts Allergy Allergy Status Severity Reaction(s) Onset Inactive Treating Comm ents Source Name Type Date Date Clinician NO KNOWN Drug Active Univers ALLERGIE Class ity of S [facility] Social History Social Habit Start Date Stop Date Quantity Comments Source History SDFL [facility] Alcohol Std Drinks History [facility] Alcohol Binge Sex Assigned At [facility] y of [facility] Exposure to Not sure University of SARS-CoV-2 [facility] (event) [place] Tobacco use and 2019-11-26 2019-11-26 Never used [facility] exposure 00:00:00 00:00:00 Alcohol intake 2019-11-26 2019-11-26 Lifetime [facility] 00:00:00 00:00:00 non-drinker (finding) History SDFL 2019-11-25 2019-11-25 1 [facility] Alcohol Frequency 00:00:00 00:00:00 Smoking Status Start Date Stop Date Source Unknown if ever smoked [facility] Never smoker [facility] al Medications Ordered Filled Start Stop Current Ordering Indication Dosage Frequency Signature Comments Components Source Medication Medication Date Date Medication? Clinician (SIG) Name Name cefTRIAXone 2019-04- No 1000mg 1,000 mg, Univers (ROCEPHIN) 06-19 IV ity of 1,000 mg in 02:00: 01:33 [place], [place] NaCl 0.9% 00 :00 ONCE, 1 Medical (NS) 50 mL dose, Sun Bran ch MINI-BAG 04/17/20 at 1999, 50 mL
Reas on for Anti-Infec tive: Documented Infection< br>Documen casey Infection Site: Urine
D uration of Therapy: Other (see Comments) NaCl 0.9% 2019-04- No 1000mL at 999 Uni vers (NS) bolus 06-19- mL/hr, ity of infusion 02:00: 01:51 1,000 mL, Reynaldo as 1,000 mL 00 :00 IV Medical Infusion, Branch ONCE, 1 dose, 04/17/20 at 2000, STAT ondansetron 2019-04- No 4mg 4 mg, Slow Univers (ZOFRAN 06-19 IV Push, ity of (PF)) 01:15: 00:19 ONCE, 1 [place] injection 4 00 :00 dose, Sun Med ical mg 04/17/20 Branch at 1915, ROMAN iohexol 2019-04- No 120mL 120 mL, Unive rs (OMNIPAQUE 2-28 04-18 Intravenou it y of 350 01:00: 00:48 s, ONCE, 1 [place] BULK-150 00 :00 dose, Sun Medica l mL) 04/17/20 Branch injection at 1900, 120 mL Routine ondansetron 2019-04 Yes [id number] 4mg Take 1 Univers (ZOFRAN 2-27 tablet by ity of ODT) 4 mg 00:00: mouth [place] disintegrat 00 every 8 Medic al ing tablet (eight) Branch hours as needed for Nausea and Vomiting (N/V). cefpodoxime 2019-04- No [id number] 100mg Take 1 Univers 100 mg 2-27 -04 tablet by ity of tablet 00:00: 05:59 mouth 2 [place] 00 :00 (two) Medical times Branch daily for 7 days. losartan-hy 2019- No 1{tbl} QD Take 1 M ethodi drochloroth 11-[address] iazide 01:07: 00:00 mouth Hospita (HYZAAR) 18 :00 daily. l 100-12.5 mg per tablet metFORMIN 2019- No 500mg Q.5D Take 500 Me thodi (GLUCOPHAGE 11-[address] ) 500 mg 01:07: 00:00 mouth 2 Hospi ta tablet 18 :00 (two) l times a day with meals. furosemide 2019- No 20mg Q.5D Take 20 mg Methodi (LASIX) 20 11-[address] mg tablet 01:07: 00:00 (two) Hospit a 18 :00 times a l day. aspirin 81 2019- No 81mg QD Chew 1 Meth eric mg chewable 11-26 tablet (81 s t tablet 00:00: 04:59 mg total) Hospi ta 00 :00 daily for l 30 days. NIFEdipine 2019-2019- No 30mg QD Take 1 Meth eric XL 11-26 tablet (30 st (PROCARDIA 00:00: 04:59 mg total) H ospita XL) 30 MG 00 :00 by mouth l 24 hr daily for tablet 30 days. atorvastati 2019- No 10mg QD Take 1 Met hodi n (LIPITOR) 11-26 tablet (10 s t 10 mg 00:00: 04:59 mg total) Hospit a tablet 00 :00 by mouth l nightly for 30 days. glipiZIDE 2020-0 2020- No 5mg Q.5D Take 1 Metho di (GlucotroL) 11-26 tablet (5 st 5 MG tablet 00:00: 04:59 mg total) Hospita 00 :00 by mouth 2 l (two) times a day before meals for 30 days. metoprolol 2020-0 2020- No 25mg Q.5D Take 1 Meth eric tartrate 11-26 tablet (25 st (LOPRESSOR) 00:00: 04:59 mg total) Hospita 25 mg 00 :00 by mouth 2 l tablet (two) times a day for 30 days. NIFEdipine 2020-0 2020- No 30mg QD Take 1 Meth eric XL 11-26 tablet (30 st (PROCARDIA 00:00: 00:00 mg total) H ospita XL) 30 MG 00 :00 by mouth l 24 hr daily for tablet 30 days. guaiFENesin 2020-0 2020- No 600mg Q.5D Take 1 Me thodi (MUCINEX) 11-[address] 600 mg 00:00: 04:59 (600 mg Hospita tablet 00 :00 total) by l extended mouth 2 release (two) 12hr times a day as needed (cough) for up to 30 days. atorvastati 2020-0 2020- No 10mg QD Take 1 Met hodi n (LIPITOR) 11-25 tablet (10 s t 10 mg 00:00: 00:00 mg total) Hospit a tablet 00 :00 by mouth l nightly for 30 days. metoprolol 2020-0 2020- No 25mg Q.5D Take 1 Meth eric tartrate 11-25 tablet (25 st (LOPRESSOR) 00:00: 00:00 mg total) Hospita 25 mg 00 :00 by mouth 2 l tablet (two) times a day for 30 days. glipiZIDE 2020-0 2020- No 5mg Q.5D Take 1 Metho di (GlucotroL) 11-25 tablet (5 st 5 MG tablet 00:00: 00:00 mg total) Hospita 00 :00 by mouth 2 l (two) times a day before meals for 30 days. azithromyci 500mg QD Take 1 Me piotrodi n 11-[address] (Zithromax) 00:00: 00:00 (500 mg Ho spita 500 MG 00 :00 total) by l tablet mouth daily. Vital Signs Vital Name Observation Time Observation Value Comments Source Systolic blood 2020-04-18 01:00:00 141 mm[Hg] Univer sity of [facility] Diastolic blood 2020-04-18 01:00:00 75 mm[Hg] Unive rsity of [facility] Heart rate 2020-04-18 01:00:00 69 /min Universi ty of [facility] Respiratory rate 2020-04-18 01:00:00 16 /min Univ ersity [facility] Oxygen saturation in 2020-04-18 01:00:00 97 /min University of Arterial blood by [facility] Pulse oximetry [place] Body temperature 2020-04-17 22:49:00 36.83 Manasa Univ ersity of [facility] Body weight 2020-04-17 22:49:00 [facility] 2020-04-18 01:00:00 141 mm[Hg] Univer sity of [facility] Diastolic blood 2020-04-18 01:00:00 75 mm[Hg] Unive rsity of [facility] Heart rate 2020-04-18 01:00:00 69 /min Universi [facility] Respiratory rate 2020-04-18 01:00:00 16 /min Univ ersity of [facility] Oxygen saturation in 2020-04-18 01:00:00 97 /min University of Arterial blood by [facility] Pulse oximetry [place] Body temperature 2020-04-17 22:49:00 36.83 Man[place] Univ ersity [facility] Body weight 2020-04-17 22:49:00 117.935 kg [facility] Heart rate 2019-11-27 20:21:40 64 /min [facility] Body temperature 2019-11-27 20:21:40 36.22 Manasa [facility] [place] [facility] Respiratory rate 2019-11-27 20:21:40 18 /min [facility] [place] [facility] Oxygen saturation in 2019-11-27 20:21:40 98 /min [facility] Arterial blood by Pulse oximetry Systolic blood 2019-11-27 20:21:40 133 mm[Hg] Method [facility] pressure Diastolic blood 2019-11-27 20:21:40 65 mm[Hg] [facility] pressure Body weight 2019-11-27 09:14:10 114.034 kg [facility] BMI 2019-11-27 09:14:10 33.17 kg/m2 [facility] Body height 2019-11-25 06:48:00 185.4 cm [facility] Procedures Procedure Date / Time Performing Clinician Source Performed CT ABDOMEN PELVIS W 2020-04-18 00:51:42 [facility]o [facility] CONTRAST Medical Branch LIPASE 2020-04-17 23:58:00 Sunday [facility] COMP. METABOLIC PANEL 2020-04-17 23:58:00 Alfredo Brand [facility] ([id number]) [facility] CBC WITH DIFF 2020-04-17 23:58:00 Decker [facility] URINALYSIS 2020-04-17 23:58:00 Sunday [facility] POC GLUCOSE 2019-11-27 17:59:00 [facility] POC GLUCOSE 2019-11-27 13:20:00 [facility] POC GLUCOSE 2019-11-27 01:24:00 [facility] POC GLUCOSE 2019-11-26 13:21:00 [facility] POC GLUCOSE 2019-11-26 01:15:00 [facility] POC GLUCOSE 2019-11-25 21:14:00 [facility] POC GLUCOSE 2019-11-25 16:44:00 [facility] TTE COMPLETE, WO 2019-11-25 13:45:00 [facility]le [facility] CONTRAST, W DOPPLER ([id number]) POC GLUCOSE 2019-11-25 12:37:00 [facility] HC COMPLETE BLD COUNT 2019-11-25 09:45:00 Stuart Del Valle [facility] W/AUTO DIFF POC GLUCOSE 2019-11-25 06:41:00 [facility] TROPONIN 2019-11-25 03:20:00 Ty, [facility] spital Chrissy URINE CULTURE 2019-11-25 03:10:00 Ty, [facility] Chrissy URINALYSIS SCREEN AND 2019-11-25 03:10:00 Ty, [facility] MICROSCOPY, WITH REFLEX Chrissy TO CULTURE CT CHEST WO CONTRAST 2019-11-25 02:23:48 [facility] POC GLUCOSE 2019-11-25 01:49:00 [facility] POC GLUCOSE 2019-11-24 23:54:00 [facility] TROPONIN 2019-11-24 23:10:00 Ty, [facility] Chrissy HEMOGLOBIN A1C 2019-11-24 23:10:00 [facility] COMPREHENSIVE METABOLIC 2019-11-24 23:10:00 [facility] PANEL MAGNESIUM LEVEL 2019-11-24 23:10:00 [facility] PHOSPHORUS LEVEL 2019-11-24 23:10:00 [facility] ESTIMATED GFR 2019-11-24 23:10:00 [facility] COVID-19 QUALITATIVE 2019-11-24 22:45:00 Ty, [facility] RT-PCR Chrissy ECG ED PRELIMINARY 2019-11-24 20:56:11 Ty, [facility] INTERPRETATION Chrissy ECG 12-LEAD 2019-11-24 20:54:14 Ty, [facility] spital Chrissy HC COMPLETE BLD COUNT 2019-11-24 20:38:00 Ty, [facility] W/AUTO DIFF Chrissy PROTHROMBIN TIME WITH INR 2019-11-24 20:38:00 Ty, [facility] Chrissy PARTIAL THROMBOPLASTIN 2019-11-24 20:38:00 Ty, [facility] TIME (PTT) Chrissy COMPREHENSIVE METABOLIC 2019-11-24 20:38:00 Ty, [facility] PANEL Chrissy TROPONIN 2019-11-24 20:38:00 Ty, [facility] Chrissy LIPASE LEVEL 2019-11-24 20:38:00 Ty, [facility] Chrissy B NATRIURETIC PEPTIDE 2019-11-24 20:38:00 Ty, Ania Dave ist [facility] Chrissy ESTIMATED GFR 2019-11-24 20:38:00 Ty, [facility] Chrissy XR CHEST 1 VW PORTABLE 2019-11-24 20:37:00 [facility] [place] [facility] of Care Planned Activity Planned Date [...] COVID-19 Vaccine (1)] Future Scheduled 65+ [facility]UMOCOCCAL [facility] Test VACCINE (1 of 4 - PCV13) [code = 65+ PNEUMOCOCCAL VACCINE (1 of 4 - PCV13)] Future Scheduled DIABETES: RETINAL EYE [facility] Test EXAM [code = DIABETES: RETINAL EYE EXAM] Future Scheduled [facility]ETIC [facility] Test [code = DIABETIC FOOT EXAM] Future Scheduled COVID-19 VACCINE (1) Met [facility] Test [code = COVID-19 VACCINE (1)] Future Scheduled [facility] Test (procedure) [code = 028829412] Future Sched[facility] [code = COLONOSCOPY SCREENING] Future Scheduled SHINGLES VACCINES (#1) [facility] Test [code = SHINGLES VACCINES (#1)] Future Scheduled INFLUENZA VACCINE [facility] Test [code = INFLUENZA VACCINE] Encounters Start End Encounter Admission Attending Care Care Encounter Source Date/Time Date/Time Type Type Clinicians Facility Department ID 2020-04-17 2020-04-17 Emergency Brand, [facility] [id number] 16:56:00 20:05:00 Alfredo Jordan [id number] [place] [id number] [place] [id number] 2020-04-17 2020-04-17 Emergency Brand, [facility] [id number] Univers 16:56:00 20:05:00 Alfredo Jordan [id number] i ty sonido Cabello 4.2.7.2.686 [facility] [id number] [place] [address] Branch 2020-04-17 2020-04-17 Emergency X [facility] ERT [id number] Univers 16:56:00 16:56:00 ity of [facility] 2019-11-29 2019-12-08 Inpatient E OJE, [facility] [facility] 02:11:00 17:45:00 DAMARI 2019-11-24 2019-11-27 [facility] Meera Butts Gabe 1.2.840. [id number] Methodi 15:13:48 20:07:00 Encounter Juan Jack [id number] [facility] Dung 3.430.2.7 Hospita .[id number] l .8 2019-11-24 2019-11-24 Travel 1.2.840.1 [id number] Methodi 00:00:00 00:00:[id number] 3.430.2.7 0.2.7.3.698 Ho spita .[id number] 084.8 l .8 2017-07-01 2017-07-01 Emergency [facility] MED [id number] [place] 01:48:00 01:48:00 Health Results Test Test Test Results Result Source Description Time Comments Comments CT ABDOMEN 2020-03-22. ?Wall thickening of U niversity of PELVIS W 28 urinary bladder may [place] [facility] CONTRAST 01:42:14 represent cystitis. Branc h Correlatewith urinalysis. 2. ?Colonic diverticulosis without diverticulitis. 3. ?Mild hepatomegaly. 4. ?Supraumbilical hernia containing fat and mesenteric vessels. Preliminary Report Dictated by Resident: Radha Tabor MD., have reviewed this study and agree with theabove report.EXAM: CT ABDOMEN/PELVIS WITH CONTRAST HISTORY: ? 74 years-old Male presenting with Abd distension Abd infection(incl peritonitis) COMPARISON: None TECHNIQUE AND FINDINGS: Contiguous axial imaging from the level of the lungbases through the proximal thighs was performed after the administration of120 cc of intravenous Omnipaque contrast. Coronal and sagittalreconstructions were obtained. ?Auto mA and/or iterative reconstructionwere used to reduce radiation dose. FINDINGS: LOWER THORAX: Right lower lobe dependent atelectasis. Mild right lower lobescarring and traction bronchiectasis. LIVER: Enlarged liver measuring 19.3 cm in craniocaudal dimension. No focalhepatic lesions. Normal contour. GALLBLADDER AND BILIARY TREE: No biliary ductal dilation. Cholelithiasis.No gallbladder wall thickening. SPLEEN: No splenomegaly. PANCREAS: No ductal dilation or masses. ADRENAL GLANDS: Nodular thickening of adrenal glands. KIDNEYS: No hydronephrosis, stones, or masses. Left upper renal pole 2.6 cmhypoattenuating cystic structure measuring higher than simple fluiddensity, indeterminate. 1.5 cm cyst in lower pole of the left kidney.Scattered bilateral subcentimeter hypoattenuating cystic structures, toosmall to characterize and statistically likely to represent simple cysts. PERITONEUM AND RETROPERITONEUM: No free air or fluid. LYMPH NODES: No lymphadenopathy. GI TRACT: Small mixed type hiatal hernia. Colonic diverticulosis withoutdiverticulitis. No bowel dilation or abnormal wall thickening. Postsurgicalchanges of colonic resection with anastomosis in the right midabdomen,likely right hemicolectomy. PELVIS/BLADDER: Diffusely thickened wall urinary bladder. The prostate istop normal in size measuring 4.2 x 4.3 x 3.8 cm.. VESSELS: An infrarenal IVC filter is seen with one of its struts closelyrelated to the adjacent abdominal aortic wall. Dilated venous collateralsalong the right abdominal wall. BONES AND SOFT TISSUES: No suspicious lytic or sclerotic bony lesions.Right posterior acetabular wall and right iliac wing fixation hardware.Right femoral intramedullary nail and interlocking screw are partiallyvisualized. Mild multilevel degenerative changes of the thoracolumbar spineand likely lower thoracic DISH.Chronic fracture of the right lower ribs. Supraumbilical anterior abdominal wall hernia measuring up to 6 to 7.3 cmcontaining mesenteric fat and vessels. [facility], Radiant Results Inft User - 04/17/2020 7:43 PM CSTEXAM: CT ABDOMEN/PELVIS WITH CONTRASTHISTORY: 74 years-old Male presenting with Abd distension Abd infection(incl peritonitis) COMPARISON: NoneTECHNIQUE AND FINDINGS: Contiguous axial imaging from the level of the lungbases through the proximal thighs was performed after the administration of120 cc of intravenous Omnipaque contrast. Coronal and sagittalreconstructions were obtained. Auto mA and/or iterative reconstructionwere used to reduce radiation dose.FINDINGS:LOWER THORAX: Right lower lobe dependent atelectasis. Mild right lower lobescarring and traction bronchiectasis.LIVER: Enlarged liver measuring 19.3 cm in craniocaudal dimension. No focalhepatic lesions. Normal contour.GALLBLADDER AND BILIARY TREE: No biliary ductal dilation. Cholelithiasis.No gallbladder wall thickening.SPLEEN: No splenomegaly.PANCREAS: No ductal dilation or masses.ADRENAL GLANDS: Nodular thickening of adrenal glands.KIDNEYS: No hydronephrosis, stones, or masses. Left upper renal pole 2.6 cmhypoattenuating cystic structure measuring higher than simple fluiddensity, indeterminate. 1.5 cm cyst in lower pole of the left kidney.Scattered bilateral subcentimeter hypoattenuating cystic structures, toosmall to characterize and statistically likely to represent simple cysts. PERITONEUM AND RETROPERITONEUM: No free air or fluid.LYMPH NODES: No lymphadenopathy.GI TRACT: Small mixed type hiatal hernia. Colonic diverticulosis withoutdiverticulitis. No bowel dilation or abnormal wall thickening. Postsurgicalchanges of colonic resection with anastomosis in the right midabdomen,likely right hemicolectomy. PELVIS/BLADDER: Diffusely thickened wall urinary bladder. The prostate istop normal in size measuring 4.2 x 4.3 x 3.8 cm..VESSELS: An infrarenal IVC filter is seen with one of its struts closelyrelated to the adjacent abdominal aortic wall. Dilated venous collateralsalong the right abdominal wall.BONES AND SOFT TISSUES: No suspicious lytic or sclerotic bony lesions.Right posterior acetabular wall and right iliac wing fixation hardware.Right femoral intramedullary nail and interlocking screw are partiallyvisualized. Mild multilevel degenerative changes of the thoracolumbar spineand likely lower thoracic DISH.Chronic fracture of the right lower ribs.Supraumbilical anterior abdominal wall hernia measuring up to 6 to 7.3 cmcontaining mesenteric fat and vessels.IMPRESSION1. Wall thickening of urinary bladder may represent cystitis. Correlatewith urinalysis.2. Colonic diverticulosis without diverticulitis.3. Mild hepatomegaly.4. Supraumbilical hernia containing fat and mesenteric vessels.Preliminary Report Dictated by Resident: Arlette Olson, Radha Shay MD., have reviewed this study and agree with theabove report. Urinalysis 2020-04-18 00:45:00 Test Item Value Reference Range Interpretation Comme nts APPEARANCE (test code = Hazy Clear A 8698483947) COLOR (test code = 0884410167) Yellow Yellow PH (test code = 7454445365) 4.8-8.0 SP GRAVITY (test code = 1.003-1.030 0403574330) GLU U QUAL (test code = Normal Normal 4228857891) BLOOD (test code = 0007107854) 1+ Negative A KETONES (test code = 4375611778) Negative Negative PROTEIN (test code = 2887-8) Negative Negative UROBILIN (test code = Normal Normal 5104877420) BILIRUBIN (test code = Negative Negative 5216989717) NITRITE (test code = 8674155794) Negative Negative LEUK JIMENA (test code = 500/uL Negative A 6349991607) RBC/HPF (test code = 8471017338) See_Comment H [Automated message] The system which ge nerated this result transmit casey reference range: 0 - 3 HP F. The reference range was not used to interpret th is result as normal/abnormal . WBC/HPF (test code = 9100817897) See_Comment H [Automated message] The system which ge nerated this result transmit casey reference range: 0 - 5 HP F. The reference range was not used to interpret th is result as normal/abnormal . BACTERIA (test code = Few Negative A 7158794158) MUCOUS (test code = 3238253553) Slight Negative LPF A SQ EPITH (test code = <1 HPF 9084158366) HYAL CAST (test code = See_Comment H [Aut omated message] The 6449274623) system which [employer] nerated this result transmit casey reference range: <=2 LPF. The reference range was not u sed to interpret this result as normal/abnormal . Lab Interpretation (test code = Abnormal 57672-6) [facility] [id number] 00:30:00 Test Item Value Reference Range Interpretation Comments NA (test code = 143 mmol/L 135-145 1558744136) K (test code = 4.4 mmol/L 3.5-5 8832815436) CL (test code = 106 mmol/L 98-108 2642182229) CO2 TOTAL (test code = 29 mmol/L 23-31 0565661800) AGAP (test code = 2-16 7107783739) BUN (test code = 17 mg/dL 7-23 8164181221) GLUCOSE (test code = 115 mg/dL 70-110 H 0852157215) CREATININE (test code = 1.30 mg/dL 0.6-1.25 H 8693768386) TOTAL BILI (test code = 0.8 mg/dL 0.1-1.8 2034303047) CALCIUM (test code = 9.7 mg/dL 8.6-10.6 8721392843) T PROTEIN (test code = 7.8 g/dL 6.3-8.2 9075504095) ALBUMIN (test code = 4.3 g/dL 3.5-5 4619042432) ALK PHOS (test code = 109 U/L 34-122 1929369970) ALTv (test code = 9 U/L 5-50 1742-6) AST(SGOT) (test code = 19 U/L 13-40 6534068817) eGFR Calculation mL/min/1.73m2 (Non-) (test code = 8496887571) eGFR Calculation mL/min/1.73m2 () (test code = 6104844398) HATTIE (test code = HATTIE) Association of Glomerular Filtration Rate (GFR) and Staging of Kidney Disease* + --+ --+ ------+| GFR (mL/min/1.73 m2) ?| With Kidney Damage ?| ?Without Kidney Damage+ --------+ --------+ +| ?>90 ?| ?Stage one ?| ? Normal ?+ ---+ ---+ -------+| ?60-89 ?| ?Stage two ?| ? Decreased GFR ? + --+ --+ ------+| ?30-59 ?| ?Stage three ?| ? Stage three ? + --+ --+ ------+| ?15-29 ?| ?Stage four ? | ? Stage four ?+ ---+ ---+ -------+| ?<15 (or dialysis) ? ?| ?Stage five ? | ? Stage five ?+ ---+ ---+ -------+ *Each stage assumes the associated GFR level has been in effect for at least three months. ?Stages 1 to 5, with or without kidney disease, indicate chronic kidney disease. Notes: Determination of stages one and two (with eGFR >59mL/min/1.73 m2) requires estimation of kidney damage for at least three months as defined by structural or functional abnormalities of the kidney, manifested by either:Pathological abnormalities or Markers of kidney damage (including abnormalities in the composition of the blood or urine or abnormalities in imaging tests). Lab Interpretation Abnormal (test code = 92779-8) [facility] Center[facility], [id number] 00:30:00 Test Item Value Reference Range Interpretation Comments LIPASE (test code = 3011645028) 43 U/L 0-220 Lab Interpretation (test code = Normal 87775-3) [facility] with [id number] 00:17:00 Test Item Value Reference Range Interpretation Comments WBC (test code = See_Comment [Automated 9890-2) message] The sy stem which generated this result transmitted reference range : 4.20 - 10.70 10*3/?L. The reference range was not used to interpret this result as normal/abnormal . RBC (test code = See_Comment H [Automated 749-8) message] The sy stem which generated this result transmitted reference range : 4.26 - 5.52 10*6/?L. The reference range was not used to interpret this result as normal/abnormal . HGB (test code = 12.0 g/dL 12.2-16.4 L 718-7) HCT (test code = 40.2 % 38.4-49.3 4544-3) MCV (test code = 63.6 fL 81.7-95.6 L 787-2) MCH (test code = 19.0 pg 26.1-32.7 L 785-6) MCHC (test code = 29.9 g/dL 31.2-35 L 786-4) RDW-SD (test code = 33.8 fL 38.5-51.6 L 26678-0) RDW-CV (test code = 15.9 % 12.1-15.4 H 788-0) PLT (test code = See_Comment L [Automated 777-3) message] The sy stem which generated this result transmitted reference range : 150 - 328 10*3/ ?L. The reference r yi was not used to interpret this result as normal/abnormal . MPV (test code = 10.3 fL 9.8-13 12544-2) NRBC/100 WBC (test See_Comment [Automat ed code = 2655108008) message] The system which generated this result transmitted reference range : 0.0 - 10.0 /100 WBCs. The refer ence range was not u sed to interpret th is result as normal/abnormal . NRBC x10^3 (test code <0.01 See_Comment [Auto mated = 6257962052) message] The s ystem which generated this result transmitted reference range : 10*3/?L. The reference range was not used to interpret this result as normal/abnormal . GRAN MAT (NEUT) % 68.0 % (test code = 770-8) IMM GRAN % (test code 0.40 % = 9960311181) LYMPH % (test code = 20.0 % 736-9) MONO % (test code = 8.9 % 5905-5) EOS % (test code = 2.1 % 713-8) BASO % (test code = 0.6 % 706-2) GRAN MAT x10^3(ANC) 3.29 10*3/uL 1.99-6.95 (test code = 0663487963) IMM GRAN x10^3 (test <0.03 0-0.06 code = 9496562348) LYMPH x10^3 (test code 0.97 10*3/uL 1.09-3.23 L = 731-0) MONO x10^3 (test code 0.43 10*3/uL 0.36-1.02 = 742-7) EOS x10^3 (test code = 0.10 10*3/uL 0.06-0.53 711-2) BASO x10^3 (test code 0.03 10*3/uL 0.01-0.09 = 704-7) Lab Interpretation Abnormal (test code = 56845-5) [facility] 12 [id number] 05:13:04 Test Item Value Reference Range Interpretation Comments Ventricular rate (test code = 253) Atrial rate (test code = 255) [place] interval (test code = 266) QRSD interval (test code = 260) QT interval (test code = 264) QTC interval (test code = 265) P axis 1 (test code = 267) QRS axis 1 (test code = 268) T wave axis (test code = 270) EKG impression (test code = 273) [facility], (w Contrast, Strain and 3D if needed)2019-11-25 17:55:40 Test Item Value Reference Range Interpretation Comments Ao Root Diameter (test code = 2.83 cm 7258037623) AoV Area, Vmax (test code = 1.39 cm2 9712216663) AoV Area, VTI (test code = 1.58 cm2 0317560429) AoV Mean PG (test code = mmHg 9643953233) AoV Peak PG (test code = mmHg 2675581547) AoV Vmax (test code = 2489044476) 3.05 m/s AoV VTI (test code = 3637943590) 0.66 m IVS,d (test code = 3163633637) 1.38 cm IVS/LVPW,2D (test code = 9421306224) Left Atrium Dimension Anterior 4.31 cm (test code = 2284264908) LA Area d A4C (test code = 30.64 cm2 8104209589) LV,d (test code = 6842734722) 5.20 cm LV EF,2D (test code = 1758922353) 50.66 % LV,s (test code = 0055374224) 4.11 cm LVOT area (test code = 9046194975) 3.59 cm2 LVOT Diam,S (test code = 2.14 cm 1397730205) LVOT Vmax (test code = 6471654011) 1.15 m/s LVOT VTI (test code = 6863300121) 0.31 m LVPWD,d (test code = 8683475331) 1.09 cm AR Press Half Time (test code = 661.06 ms 0736892787) MV E A ratio (test code = 6186429406) E wave decelartion time (test code msec = 0304852921) MV Peak A Levon (test code = 0.96 m/s 7554569842) MV valve area p 1/2 method (test 2.63 cm2 code = 4304912108) MV Peak E Levon (test code = 0.74 m/s 7475445597) MV stenosis pressure 1/2 time (test 83.52 ms code = 5765083182) AV LVOT peak gradient (test code = mmHg 4066855602) Ao Root Diameter (test code = 2.83 cm 4039805098) MV mean gradient (test code = mmHg 9261909684) LV SYS VOL (test code = 0354721009) 74.48 ml LV DEE VOL (test code = 129.29 ml 3474137824) LV SV Teich 2D (test code = 54.81 ml 5311376706) LV Vol s Teich PSAX (test code = 74.48 ml 6872286929) MR peak grad (test code = mmHg 7655078450) MV Vmax (test code = 9200123741) 0.98 m MV VTI Tips (test code = 0.31 m 2496145291) AoV Vmn (test code = 4390901942) LV FS Teich 2D (test code = 9488443292) MV AE ratio (test code = 6655761980) AR slope (test code = 3710922323) Ar Vmax (test code = 8814777453) LV FS Cube 2D (test code = 2399391287) LVOT Vmn (test code = 2804244181) Aov area Vmn (test code = 1.29 cm2 1900748242) LA Vol d MOD A4C (test code = 113.22 ml 8106077769) LVOT mean grad (test code = mmHg 3792790037) MAX Pred HR (test code = 5271836969) 85 of MPHR (test code = 8905010221) AR DT (test code = 8661837234) msec AR pk grad (test code = 0061180051) mmHg Calc MPHR (test code = 1476911981) bpm LV SV Cube 2D (test code = 71.07 ml 7062163841) LV vol d cube 2D (test code = 140.30 ml 8940383536) LV vol s cube 2D (test code = 69.23 ml 6024327853) MV Decel slope (test code = 2.61 m/s2 8111435992) Pred Exer Dur R1 (test code = 5647724428) Pred METS R1 (test code = 2458657427) Velocity Ratio (V1/V2) (test code = 0.38 m/s 4689) EF (test code = 0361937853) 42.39 % E/A ratio (test code = 4170852864) ADD (test code = ADD) HATTIE (test code = HATTIE) [facility] [id number] 03:52:48 Test Item Value Reference Range Interpretation Comments Urine culture (test code = SEE COMMENT 2119591) [facility] Wo [id number] 02:34:15EXAMINATION:CT CHEST WO CONTRAST CLINICAL HISTORY:Shortness of [...] processes. Consider isolation and appropriate laboratory testing. [facility]-[id number] [facility], Radiology Results - 11/24/2019 9:37 PM CDT EXAMINATION:CT CHEST [...] noninfectious processes. Consider isolation and appropriate laboratory testing.[facility]-[id number] [facility] Preliminary Interpretation - Not an [id number] 20:56:11Meera Butts MD 11/27/2019 8:21 [facility] ED Preliminary Interpretation - Not an OrderPerformed by: Ania Rosas NPAuthorized by: Ania Rosas NP ECG reviewed by ED Physician in the absence of a rib sawyer: yes Interpretation: Interpretation: non-specific Rate: ECG rate: 77 ECG rate assessment: normal Rhythm: Rhythm: sinus rhythm Ectopy: Ectopy: PAC QRS: QRS axis: Normal (86) QRS intervals: NormalConduction: Conduction: normal T waves: T waves: non-specific Other findings: Other findings: prolonged qTc interval [facility] 1 Vw [id number] 20:51:33EXAMINATION: XR CHEST 1 VW PORTABLE CLINICAL HISTORY: 74 years Male SOB COMPARISON: None. IMPRESSION: The cardiomediastinal silhouette is slightly enlarged The lungs are clear Age related changes in the osseous structures. . . Interface, Radiology Results Incoming - 11/24/2019 3:54 PM CDT EXAMINATION: XR CHEST 1 VW PORTABLECLINICA L HISTORY: 74 years Male SOBCOMPARISON: None.IMPRESSION:The cardiomediastinal silhouette is slightly enlarged The lungs are clear Age related changes in the osseous structures...[facility]"
[2021-03-29] MEDS ORDERED: ACETAMINOPHEN 500 MG TAB ONE (20:11)
[2021-03-29 20:13] LABS: Urine Blood 1+ (Negative); Urine Glucose Negative (Negative); Urine Protein Trace (Negative); Urine Specific Gravity 1.025 (1.005-1.030)
[2021-03-29 20:35] LABS: Hematocrit 42.1 % (39.6-49.0); MPV 9.5 fL (7.6-11.3); RBC Red Blood Cell Count 6.74 M/uL (4.33-5.43)
--- NOTE | 2021-03-29 20:41 | RAD REPORT ---
EXAM DESCRIPTION: RAD - Chest Single View - 03/29/2021 8:28 pm CLINICAL HISTORY: DYSPNEA COMPARISON: Chest Single View dated 11/20/2020; Chest Single View dated 06/25/2020; Chest Single View da casey 02/26/2020; Chest Single View dated 04/06/2019 FINDINGS: Lines: None. Lungs: Moderate widespread bilateral airspace disease, slightly worsened compared with 11/20/2020. Th e lung volumes are decreased. . Pleural: No significant pleural effusions or pneumothorax. Cardiac: Cardiomegaly. Bones: No acute fractures. Other: IMPRESSION: Moderate multifocal interstitial and airspace disease which may reflect edema and/or mul tifocal pneumonia.
[2021-03-29 20:44] LABS: Protime INR 1.09
[2021-03-29 20:55] LABS: ALT/SGPT 23 U/L (12-78); AST/SGOT 16 U/L (15-37); Albumin 3.6 g/dL (3.4-5.0); Alkaline Phosphatase 109 U/L (45-117); BUN Blood Urea Nitrogen 13 mg/dL (7-18); Bicarbonate 27 mmol/L (21-32); Bilirubin Direct 0.2 mg/dL (0-0.2); Bilirubin Total 1.2 mg/dL (0.2-1.0); Glucose Level 119 mg/dL (74-106); Lipase 147 U/L (73-393); Potassium 3.9 mmol/L (3.5-5.1); Protein, Total 8.6 g/dL (6.4-8.2); Sodium Level 144 mmol/L (136-145); Troponin (Emerg Dept Use Only) < 0.02 ng/mL (0.0-0.045)
[2021-03-29 21:04] LABS: CKMB Creatine Kinase MB < 1.0 ng/mL (1.0-3.6)
[2021-03-29 21:21] LABS: Platelet Estimate ADEQ
[2021-03-29 21:22] LABS: Blood Morphology Comment NOTED (NOT SEEN); Hypochromasia 1+
[2021-03-29 21:22] LABS: Urine Bacteria 20-50 /HPF (NONE SEEN); Urine RBC <5 /HPF (NONE SEEN)
[2021-03-29 21:32] LABS: SARS-COV-2 RT PCR NEGATIVE (NEGATIVE)
--- NOTE | 2021-03-29 22:39 | ER ---
Nurse's Notes [facility] Name: Tal Cornejo Age: 75 yrs Sex: Male : 1945 Arrival Date: 03/29/2021 Time: 18:35 Bed 5 Private MD: Diagnosis: UTI/ Urinary tract infection, site not specified;Unspecified combined systolic (congestive) and diastolic (congestive) heart failure;Delirium due to known physiological condition Presentation: 03/29 19:23 Chief complaint: Patient states: both legs swollen 2 days. Coronavirus screen: Vaccine da3 status: Patient reports receiving the 2nd dose of the covid vaccine. Ebola Screen: No symptoms or risks identified at this time. Initial Sepsis Screen: Does the patient meet any 2 criteria? No. Patient's initial sepsis screen is negative. 19:23 Method Of Arrival: Ambulatory da3 19:23 Risk Assessment: Do you want to hurt yourself or someone else? Patient reports no da3 desire to harm self or others. Onset of symptoms was March 27, 2021. 19:23 Acuity: MARTITA 3 da3 20:05 Initial Sepsis Screen: Does the patient meet any 2 criteria? RR > 20 per min. HR > 90 tw5 bpm. Yes Does the patient have a suspected source of infection? No. Patient's initial sepsis screen is negative. Triage Assessment: 20:05 General: Appears ill, Behavior is drowsy. tw5 - Immunization history:: Client reports receiving the 2nd dose of the Covid vaccine. - Social history:: Smoking status: unknown. - Family history:: not pertinent. - Hospitalizations: : No recent hospitalization is reported. Screenin:01 Abuse screen: Denies threats or abuse. Denies injuries from another. Nutritional tw5 screening: No deficits noted. Tuberculosis screening: No symptoms or risk factors identified. Fall Risk No fall in past 12 months (0 pts). Secondary diagnosis (15 points) IV access (20 points). Ambulatory Aid- None/Bed Rest/Nurse Assist (0 pts). Gait- Impaired (20 pts.). Mental Status- Overestimates/Forgets Limitations (15 pts.). Assessment: 19:57 General: Patient states that he drove himself here. He reports feeling ill since tw5 yesterday. A gait belt, 2 nurses and 2 techs had to ge the patient into the bed. The patient urinated and deficated on himself as he was getting up form the wheelchair. He states " I dont want to wear a diaper, but when I got to go I go". General: Smells of urine. Pain: Complains of pain in right upper quadrant and right lower quadrant Pain currently is 6 out of 10 on a pain scale. Quality of pain is described as sharp, shooting. Neuro: Level of Consciousness is lethargic, Oriented to person, place, time, situation. Respiratory: Airway is patent Trachea midline Respiratory effort is labored, Respiratory pattern is tachypnea. GI: Bowel sounds present X 4 quads. Abd is soft X 4 quads Abdomen is tender to palpation in right upper quadrant and right lower quadrant. : Urine is cloudy. 20:01 Cardiovascular: Edema is 4+ to left ankle, left foot, right ankle and right foot. tw5 23:07 Reassessment: Patient appears in no apparent distress at this time. No changes from tw5 previously documented assessment. Patient and/or family updated on plan of care and expected duration. Pain level reassessed. 03/30 00:23 Reassessment: report given to Monique SANCHES for room 428. bb Vital Signs: 03/29 19:23 BP 157 / 93; Pulse 91; Resp 22; Temp 100.2; Pulse Ox 96% on R/A; Weight 113.4 kg; da3 Height 6 ft. 1 in. (185.42 cm); 19:57 BP 154 / 93; Pulse 93; Resp 30; Pulse Ox 95% on R/A; tw5 20:20 BP 157 / 95; Pulse 95; Resp 18; Pulse Ox 96% ; tt3 21:25 BP 142 / 87; Pulse 91; Resp 19; Pulse Ox 98% ; tt3 21:54 BP 145 / 96; Pulse 89; Resp 18; Pulse Ox 97% ; tt3 22:26 BP 131 / 87; Pulse 93; Resp 18; Pulse Ox 97% ; tt3 23:07 BP 142 / 88; Pulse 95; Resp 24; Pulse Ox 96% on R/A; tw5 23:18 BP 146 / 100; Pulse 91; Resp 20; Pulse Ox 96% ; tt3 03/30 00:00 BP 128 / 76; Pulse 94; Resp 22; Pulse Ox 98% ; tt3 00:16 Temp 99.5(O); bb 03/29 19:23 Body Mass Index 32.98 (113.40 kg, 185.42 cm) da3 ED Course: 03/29 18:35 Patient arrived in ED. ds1 19:27 Triage completed. da3 19:45 Teresita Gardner is Primary Nurse. tw5 20:00 Timothy Brewer MD is Attending Physician. rn 20:01 Patient has correct armband on for positive identification. Placed in gown. Bed in low tw5 position. Call light in reach. Side rails up X 1. cafeteria monitor on. Pulse ox on. NIBP on. Door closed. Noise minimized. Lights dimmed. Moved to private room. Warm blanket given. Verbal reassurance given. 20:01 Inserted saline lock: 20 gauge in left antecubital area, using aseptic technique. tw5 ,using aseptic technique. Placed by KJ Blood collected. 20:05 Awaiting lab results. tw5 20:05 Initial lab(s) drawn, by ED staff, sent to lab. First set of blood cultures drawn by ED tw5 staff, Urine collected: EKG done, by machine tool technician instructor. reviewed by Timothy Brewer MD. 20:13 Urine Microscopic Only Sent. tw5 20:13 Urine Culture Sent. tw5 20:13 Troponin (emerg Dept Use Only) Sent. tw5 20:13 Protime (+inr) Sent. tw5 20:13 Procalcitonin Sent. tw5 20:13 Lipase Sent. tw5 20:13 Ptt, Activated Sent. tw5 20:14 LFT's Sent. tw5 20:14 Ckmb Sent. tw5 20:14 CBC with Diff Sent. tw5 20:14 Blood Culture Adult (2) Sent. tw5 20:14 Basic Metabolic Panel Sent. tw5 20:14 Lactate Sent. tw5 20:14 Basic Metabolic Panel Sent. tw5 20:14 CKMB Creatine Kinase MB Sent. tw5 20:14 CBC with Automated Diff Sent. tw5 20:14 Blood Culture Sent. tw5 20:14 Lactate Sent. tw5 20:14 Liver (Hepatic) Function Sent. tw5 20:15 COVID swab sent to lab. Flu and/or RSV swab sent to lab. mh5 20:27 Chest Single View XRAY In Process Unspecified. EDMS 22:00 CT Abd/Pelvis - IV Contrast Only In Process Unspecified. EDMS 22:38 Amanuel Parker DO is Hospitalizing Provider. rn 03/30 00:24 No provider procedures requiring assistance completed. Patient admitted, IV remains in bb place. 00:25 Arm band placed on. bb Administered Medications: 03/29 20:13 Drug: Acetaminophen 1000 mg Route: PO; tw5 23:03 Drug: Rocephin (cefTRIAXone) 1 grams Route: IV; Rate: calculated rate; Site: left tw5 antecubital; Outcome: 22:38 Decision to Hospitalize by Provider. rn 03/30 00:24 Admitted to Tele accompanied by tech, via stretcher, room 428. bb Condition: stable Instructed on the need for admit. 00:33 Patient left the ED. bb Signatures: Dispatcher [employer] EDCO Julia Johnson ds1 Ashley Delaney RN RN bb Timothy Brewer MD MD rn Martinez, Maria 5 Philippe Lees 3 Hayes Howell RN RN da3 Teresita Gardner tw5 Corrections: (The following items were deleted from the chart) 03/29 19:27 19:27 PMHx: Diabetes - NIDDM; da3 da3 19:27 19:27 PMHx: Hypertension; da3 da3 19:27 19:27 PMHx: Gout; da3 da3 19:27 19:27 PMHx: Hyperlipidemia; da3 da3 19:27 19:27 PMHx: DVT; da3 da3 19:27 19:27 PMHx: LYMPHODEMA; da3 da3 19:27 19:27 PMHx: PE; da3 da3 20:44 20:14 Influenza Screen (A \\T\\ B)+BA.LAB.BRZ drawn and sent. tw5 EDMS 20:45 20:14 SARS-COV-2 RT PCR+MOL.LAB.BRZ drawn and sent. 5 EDMS
--- NOTE | 2021-03-29 22:40 | EDPHYS ---
Physician Documentation [facility] Name: Tal oCrnejo Age: 75 yrs Sex: Male : 1945 Arrival Date: 03/29/2021 Time: 18:35 Bed 5 Private MD: ED Physician Timothy Brewer HPI: 03/29 22:16 This 75 yrs old Black Male presents to ER via Ambulatory with complaints of Altered rn mental status, abdominal Pain, Leg Swelling. 22:16 The patient presents with confusion. Onset: The symptoms/episode began/occurred at an rn unknown time. Possible causes: unknown. Associated signs and symptoms: Pertinent positives: abdominal pain, confusion, nausea, shortness of breath, vomiting. Current symptoms: In the emergency department the patient's symptoms are unchanged from the initial presentation. It is unknown whether or not the patient has had similar symptoms in the past. The patient has not recently seen a physician. Patient reports multiple symptoms and problems, states began recently but cannot tell me exactly when. Reports confusion and altered mental status, generalized weakness and fatigue, right-sided abdominal pain, and swelling to left lower lower extremities. Also reports nausea/vomiting as well as shortness of breath. Denies fever.. - Immunization history:: Client reports receiving the 2nd dose of the Covid vaccine. - Social history:: Smoking status: unknown. - Family history:: not pertinent. - Hospitalizations: : No recent hospitalization is reported. ROS: 22:16 Constitutional: Negative for fever, chills, and weight loss, Eyes: Negative for injury, rn pain, redness, and discharge, ENT: Negative for injury, pain, and discharge, Neck: Negative for injury, pain, and swelling, Cardiovascular: Negative for chest pain, palpitations, and edema, Respiratory: Positive for shortness of breath and cough Abdomen/GI: Positive for abdominal pain and nausea vomiting Back: Negative for injury and pain, : Negative for injury, bleeding, discharge, and swelling, MS/Extremity: Positive for swelling to both legs Skin: Negative for injury, rash, and discoloration, Neuro: Positive for generalized weakness and malaise Exam: 22:16 Constitutional: This is a well developed, well nourished patient who is awake, alert, rn tachypneic and appears weak all over Head/Face: Normocephalic, atraumatic. Eyes: Periorbital areas with no swelling, redness, or edema. ENT: Dry mucous membranes Cardiovascular: Regular rate and rhythm. No pulse deficits. Respiratory: Mild tachypnea, able to speak full sentences, no retractions Abdomen/GI: Soft, mild right sided tenderness, soft ventral hernia palpated. No peritoneal signs Skin: Warm, dry, no evidence of cellulitis MS/ Extremity: Pulses equal, no cyanosis. Neurovascular intact. 3+ pitting edema bilateral lower extremities. Equal circumference. Neuro: Awake and alert, GCS 15, oriented to person, place. Motor strength 4/5 in all extremities. Sensory grossly intact. Vital Signs: 19:23 BP 157 / 93; Pulse 91; Resp 22; Temp 100.2; Pulse Ox 96% on R/A; Weight 113.4 kg; da3 Height 6 ft. 1 in. (185.42 cm); 19:57 BP 154 / 93; Pulse 93; Resp 30; Pulse Ox 95% on R/A; tw5 20:20 BP 157 / 95; Pulse 95; Resp 18; Pulse Ox 96% ; tt3 21:25 BP 142 / 87; Pulse 91; Resp 19; Pulse Ox 98% ; tt3 21:54 BP 145 / 96; Pulse 89; Resp 18; Pulse Ox 97% ; tt3 22:26 BP 131 / 87; Pulse 93; Resp 18; Pulse Ox 97% ; tt3 23:07 BP 142 / 88; Pulse 95; Resp 24; Pulse Ox 96% on R/A; tw5 23:18 BP 146 / 100; Pulse 91; Resp 20; Pulse Ox 96% ; tt3 03/30 00:00 BP 128 / 76; Pulse 94; Resp 22; Pulse Ox 98% ; tt3 00:16 Temp 99.5(O); bb 03/29 19:23 Body Mass Index 32.98 (113.40 kg, 185.42 cm) da3 MDM: 03/29 20:00 Patient medically screened. rn 22:37 Differential Diagnosis: electrolyte abnormality, pneumonia, sepsis, UTI, volume rn depletion, CHF. Data reviewed: vital signs, nurses notes, lab test result(s), EKG, radiologic studies, CT scan, plain films, and as a result, I will admit patient. Data interpreted: Pulse oximetry: on room air is 97 %. Interpretation: normal. Counseling: I had a detailed discussion with the patient and/or guardian regarding: the historical points, exam findings, and any diagnostic results supporting the discharge/admit diagnosis, lab results, radiology results, the need for further work-up and treatment in the hospital. Response to treatment: the patient's symptoms have mildly improved after treatment, and as a result, I will admit patient. Admission orders: after a detailed discussion of the patient's condition and case, the admit orders are written by me. 03/29 20:06 Order name: Basic Metabolic Panel rn 03/29 20:06 Order name: Blood Culture Adult (2) rn 03/29 20:06 Order name: CBC with Diff rn 03/29 20:06 Order name: Ckmb rn 03/29 20:06 Order name: LFT's rn 03/29 20:06 Order name: Lactate rn 03/29 20:06 Order name: Lipase rn 03/29 20:06 Order name: Procalcitonin; Complete Time: 22:31 03/29 20:06 Order name: Protime (+inr); Complete Time: 20:54 03/29 20:06 Order name: Ptt, Activated; Complete Time: 20:54 03/29 20:06 Order name: Troponin (emerg Dept Use Only) rn 03/29 20:06 Order name: Urine Culture 03/29 20:06 Order name: Urine Microscopic Only; Complete Time: 21:25 03/29 20:06 Order name: Chest Single View XRAY; Complete Time: 20:54 08 20:06 Order name: CT Abd/Pelvis - IV Contrast Only rn 03/29 20:06 Order name: Basic Metabolic Panel EDTN 03/29 20:06 Order name: Blood Culture EDTN 03/29 20:06 Order name: CBC with Automated Diff; Complete Time: 21:25 EDTN 03/29 20:06 Order name: CKMB Creatine Kinase MB EDTN 03/29 20:06 Order name: Liver (Hepatic) Function EDTN 03/29 20:06 Order name: Lactate; Complete Time: 21:41 EDTN 03/29 20:13 Order name: Urine Dipstick-Ancillary; Complete Time: 20:48 EDTN 03/29 20:20 Order name: Glucose, Ancillary Testing; Complete Time: 20:54 EDTN 03/29 20:45 Order name: COVID-19/FLU A+B; Complete Time: 21:41 EDMS 03/29 21:20 Order name: Manual Differential; Complete Time: 21:41 EDMS 03/29 22:34 Order name: NT PRO-BNP EDMS 03/29 20:06 Order name: Accucheck; Complete Time: 20:13 rn 03/29 20:06 Order name: Cardiac monitoring; Complete Time: 20:13 rn 03/29 20:06 Order name: EKG - Nurse/Tech; Complete Time: 20:13 rn 03/29 20:06 Order name: IV Saline Lock - Large Bore; Complete Time: 20:13 rn 03/29 20:06 Order name: Labs collected and sent; Complete Time: 20:13 rn 03/29 20:06 Order name: O2 Per Protocol; Complete Time: 20:13 rn 03/29 20:06 Order name: O2 Sat Monitoring; Complete Time: 20:13 rn 03/29 20:06 Order name: Urine Dipstick-Ancillary (obtain specimen); Complete Time: 20:13 rn Administered Medications: 20:13 Drug: Acetaminophen 1000 mg Route: PO; tw5 23:03 Drug: Rocephin (cefTRIAXone) 1 grams Route: IV; Rate: calculated rate; Site: left tw5 antecubital; Disposition Summary: 03/29/21 22:38 Hospitalization Ordered Hospitalization Status: Inpatient Admission rn Provider: Amanuel Parker [facility] Condition: Stable rn Problem: new rn Symptoms: have improved rn Bed/Room Type: Standard rn Room Assignment: 428(03/30/21 00:13) eb1 Diagnosis - UTI/ Urinary tract infection, site not specified rn - Unspecified combined systolic (congestive) and diastolic (congestive) heart failure rn - Delirium due to known physiological condition rn Forms: - Medication Reconciliation Form rn - SBAR form rn Signatures: Dispatcher [employer] EDMS Timothy Brewer MD MD rn Attema, Lee, FNP-Helen BLEVINSP-Cla1 Jo Alston RN RN eb1 Hayes Howell, RN RN [email or web address] Teresita Gardner tw5 Corrections: (The following items were deleted from the chart) 19:27 19:27 PMHx: Diabetes - NIDDM; da3 da3 19:27 19:27 PMHx: Hypertension; da3 da3 19: 19:27 PMHx: Gout; da3 da3 19: 19:27 PMHx: Hyperlipidemia; da3 da3 19: 19:27 PMHx: DVT; da3 da3 19: 19:27 PMHx: LYMPHODEMA; da3 da3 19: 19:27 PMHx: PE; da3 da3 20:15 20:06 Salo ordered. sven tw5 20:44 20:07 Influenza Screen (A \T\ B)+BA.LAB.BRZ ordered. EDMS EDMS 20:45 20:07 SARS-COV-2 RT PCR+MOL.LAB.BRZ ordered. EDMS EDMS 22:33 22:33 PROBNP+C.LAB.BRZ ordered. EDMS EDMS 03/30 00:13 03/29 22:38 rn eb1
[2021-03-29 22:46] LABS: NT PRO-BNP 5204 pg/mL (<450)
[2021-03-29] MEDS ORDERED: CEFTRIAXONE 1000 MG/VIAL ONE (22:59)
[2021-03-29] MEDS ORDERED: NA CHLORIDE 0.9% 50 ML ONE (22:59)
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
[2021-03-29 23:35] VITALS: BMI 32.7
[2021-03-30] MEDS ORDERED: ONDANSETRON 4 MG/2 ML VIAL IV PRN (01:05)
[2021-03-30] MEDS: FUROSEMIDE 40 MG/4 ML VIAL IV SCH ×3 (02:03→17:01)
[2021-03-30 04:04] LABS: Hematocrit 36.2 % (39.6-49.0); MPV 8.7 fL (7.6-11.3); RBC Red Blood Cell Count 5.82 M/uL (4.33-5.43)
[2021-03-30 04:12] LABS: Albumin 2.9 g/dL (3.4-5.0); Bilirubin Total 1.1 mg/dL (0.2-1.0); Magnesium 2.1 mg/dL (1.8-2.4); Potassium 3.7 mmol/L (3.5-5.1); Protein, Total 7.1 g/dL (6.4-8.2); Thyroid Stimulating Hormone 0.586 uIU/mL (0.360-3.740)
[2021-03-30 04:39] LABS: Blood Morphology Comment NOTED (NOT SEEN); Hypochromasia 2+; Platelet Estimate ADEQ
[2021-03-30] MEDS: METOPROLOL TAR 25 MG TAB PO SCH ×2 (05:36→17:01)
--- NOTE | 2021-03-30 06:09 | P.PN ---
Subjective Date of Service: 03/30/21 Primary Care Provider: None Chief Complaint: CHF exacerbation Subjective: Improving Physical Examination - Vital Signs Temperature: 99.1 F Blood Pressure: 113/59 Pulse: 82 Respirations: 19 Pulse Ox (%): 99 - Studies Laboratory Data (last 24 hrs) 03/29/21 20:07: PT 12.6 H, INR 1.09, APTT 30.1 03/29/21 20:07: WBC 7.20, Hgb 12.6 L, Hct 42.1, Plt Count 188 03/29/21 20:07: Sodium 144, Potassium 3.9, BUN 13, Creatinine 1.34 H, Glucose 119 H, Total Bilirubin 1.2 H, AST 16, ALT 23, Alkaline Phosphatase 109, Lipase 147 Assessment & Plan Discharge Plan: Home Plan to discharge in: 48 Hours Physician Review Additional Text: COVID: Negative CXR: COMPARISON: Chest Single View dated 11/20/2020; Chest Single View dated 06/25/2020; Chest Single View dated 02/26/2020; Chest Single View dated 04/06/2019 FINDINGS: Lines: None. Lungs: Moderate widespread bilateral airspace disease, slightly worsened compared with 11/20/2020. The lung volumes are decreased. . Pleural: No significant pleural effusions or pneumothorax. Cardiac: Cardiomegaly. Bones: No acute fractures. IMPRESSION: Moderate multifocal interstitial and airspace disease which may reflect edema and/or multifocal pneumonia. CT Ab/Pelvis: Impression Anterior abdominal wall hernia containing omentum Cholelithiasis Fatty liver Cardiomegaly with minimal coronary artery calcification History of open reduction internal fixation of the right posterior acetabulum a nd right hip joint Venous doppler: COMPARISON: 02/26/2020 TECHNIQUE: Real-time sonographic evaluation of the bilateral lower extremity deep venous systems was performed. FINDINGS: Re- demonstrated partially compressible right popliteal and left popliteal veins with intraluminal echogenic material. The remaining veins are compressible, demonstrate normal waveforms, and normal color flow. IMPRESSION: Unchanged chronic popliteal vein thrombus bilaterally. No evidence of acute deep venous thrombosis. Physical exam: General: Alert, In no apparent distress, Oriented x3 HEENT: Neck supple Respiratory: Clear. Currently on room air. Cardiovascular: Regular rate/rhythm, Edema, Abnormal S1 S2, Systolic murmur Capillary refill: <2 Seconds Gastrointestinal: Normal bowel sounds, Soft and benign, No ascites, No tenderness Musculoskeletal: No tenderness Integumentary: Edema to the lower extremities improved. Neurological: Normal speech, Normal strength at 5/5 x4 extr, Normal tone, Normal affect Impression: Dyspnea, fever secondary to acute on chronic diastolic congestive heart failure with aortic regurgitation with possible superimposed pneumonia Urine tract infection Prediabetes CKD 3 Hypertension History of DVT on chronic anticoagulation therapy with medical noncompliance and history of IVC filter Plan: Dyspnea, fever secondary to acute on chronic diastolic congestive heart failure with aortic regurgitation complicated with possible bilateral pneumonia: Continue 1500 cc per day fluid restriction and low-salt diet. Patient remains on IV Lasix 40 mg 3 times a day. Patient noncompliant with medication. Previous echo done in November showed ejection fraction 55% with aortic regurgitation and aortic stenosis. Compliance with medication addressed in detail. Continue Rocephin and Zithromax to cover for possible pneumonia. Recheck chest x-ray tomorrow. Anticipate improvement over the next 48 hours. Urine tract infection: Patient on Rocephin. Await urine and blood culture results. Prediabetes: Continue diet control. Hemoglobin A1c 5.9. This can be monitored as an outpatient. CKD 3: Overall stable. Will monitor closely. Hypertension: Continue lisinopril 5 mg daily and metoprolol 25 mg 1 pill twice daily. Will monitor and adjust medication. History of DVT on chronic anticoagulation therapy with medical noncompliance and history of IVC filter: Xarelto 20 mg restarted. DVT PPX: Xarelto Code status: Full code Discharge Plan: Home at discharge Time Spent Managing Pts Care (In Minutes): 55
[2021-03-30] MEDS: INSULIN -REGULAR HUMAN 50 UNIT/0.5 ML ML SQ SCH ×4 (07:30→21:00)
--- NOTE | 2021-03-30 07:37 | RAD REPORT ---
EXAM DESCRIPTION: US - Extrem Venous W Compress Ronaldo - 03/30/2021 6:53 am CLINICAL HISTORY: 02/26/2020History DVT, swelling blood thinner COMPARISON: 02/26/2020 TECHNIQUE: Real-time sonographic evaluation of the bilateral lower extremity deep venous systems was performed. FINDINGS: Re- demonstrated partially compressible right popliteal and left popliteal veins with intr aluminal echogenic material. The remaining veins are compressible, demonstrate normal waveforms, and normal color flow. IMPRESSION: Unchanged chronic popliteal vein thrombus bilaterally. No evidence of acute deep venous thrombosis.
[2021-03-30] MEDS: CEFTRIAXONE 1,000 MG in NA CHLORIDE 0.9% 50 ML IVPB SCH (07:55)
[2021-03-30] MEDS: lisinopriL 5 MG TAB PO SCH (07:56)
[2021-03-30] MEDS ORDERED: POTASSIUM CL SA 10 MEQ TAB PO ONE (09:00)
[2021-03-30] MEDS: AZITHROMYCIN IV 500 MG in NA CHLORIDE 0.9% 250 ML IVPB SCH (09:43)
--- NOTE | 2021-03-30 12:21 | RAD REPORT ---
EXAM DESCRIPTION: CT - Abdomen Pelvis W Contrast - 03/30/2021 12:25 am CLINICAL HISTORY: 75 years, Male, ABD PAIN COMPARISON: 04/23/2017. TECHNIQUE: Contrast-enhanced images of the abdomen and pelvis were performed utilizing 5 mm slice th ickness at 5 mm interval reconstruction from the lung bases to the ischial tuberosities after the adm inistration of IV contrast. Subsequent delayed imaging through the kidneys and bladder were also gene rated. In addition multiplanar reformats in the coronal and sagittal plane were obtained and reviewed. This exam was performed according to our departmental dose-optimization protocol, which includes auto mated exposure control, adjustment of the mA and/or kV according to patient size and/or use of iterat bryanna reconstruction technique. FINDINGS: The lung bases demonstrated minimal atelectatic changes, prominence of the pulmonary brandy ngs perhaps suggesting early fluid overload. Mild elevation right hemidiaphragm. Cardiomegaly. Aortic valvular opacification. Minimal coronary artery calcifications. The liver demonstrate decreased attenuation corresponding to fatty infiltration. Otherwise the liver, pancreas, spleen and adrenal glands demonstrate to be unremarkable, no focal lesions are noted. Small radiodensities are identified within the gallbladder corresponding to cholelithiasis. No biliar y duct dictation The kidneys demonstrate normal uptake of contrast media. There is questionable tiny calculus upper po le left kidney measuring 1.6 mm on image 27. There is no evidence for hydronephrosis and/or hydrouret er. The left kidney demonstrate the presence of several cysts, the largest one within the upper pole measuring 2 x 1.7 cm on image 27. There is a mid/upper pole left renal calculus measuring 1.6 mm on i mage 32. There is no evidence for left hydronephrosis and/or hydroureter. Grossly the unopacified stomach, small bowel and large bowel demonstrate to be within normal limits. There is no evidence for bowel dilatation/or free air allowing for the motion artifact. There is qu estionable minimal diverticulosis within the left site colon. There is a anterior abdominal wall hernia containing omentum with minimal haziness of the peritoneal fat perhaps suggesting mild dilatation on axial image 44-48. The urinary bladder demonstrate to be unremarkable. The prostate gland is normal. The aorta demonstrate minimal atherosclerotic disease at the aortic bifurcation. There is a IVC filte r in place. There is no retroperitoneal lymphadenopathy. There is no evidence for ascites or and/or s ignificant abnormal fluid collections. The bone windows demonstrate no significant skeletal lesions Again there is ORIF of the right posterior acetabulum and right hip joint similar to prior study. IMPRESSION: Anterior abdominal wall hernia containing omentum with minimal haziness of the peritonea l fat perhaps suggesting mild dilatation. Cholelithiasis. Fatty infiltration of the liver. Cardiomegaly with minimal coronary artery calcifications. ORIF of the right posterior acetabulum and right hip joint. Electronically signed by: Jose Raul Estrada MD 03/29/2021 10:21 PM [employer] Due to temporary technical issues with the PACS/Fluency reporting system, reports are being signed by the in house radiologists without review as a courtesy to insure prompt reporting. The interpreting radiologist is fully responsible for the content of the report.
--- NOTE | 2021-03-30 14:20 | CON ---
Date of Consultation: 03/30/2021 Reason For Consultation: Heart failure. History Of Present Illness: This is a 75-year-old male presented with shortness of breath, lower ext remity edema, generally very weak, has a history of hypertension, diabetes, diastolic heart failure, aortic valve stenosis and aortic valve regurgitation, started on IV diuretics and feels slightly bett er. Past Medical History: As outlined above in the HPI. Medications: Refer to reconciliation sheet for detailed list. Allergies: NO KNOWN DRUG ALLERGIES. Family History: No premature coronary artery disease or cancer. Social History: Does not smoke or drink. Does not use any drugs. Review of Systems: All systems reviewed and they were negative except what mentioned in the HPI. Physical Examination: Head and Neck: Pupils are equal, reactive to light. Intact eye movements. No JVD. No cervical lym phadenopathy. Neck is supple. Thyroid is not enlarged. Vital Signs: Reviewed. Lungs: There are rhonchi bilaterally. No accessory muscle use or muscle retraction. Heart: Regular rate and rhythm with a very loud late-peaking aortic ejection systolic murmur. Abdomen: Soft and nontender. Bowel sounds positive. No organomegaly. No masses or hernia. No rig idity or rebound. Extremities: Chronic extremity edema bilaterally. No clubbing or cyanosis. Intact pulses. Skin: No rash. No nodules. Neurologic: Alert, awake, and oriented x3. No acute focal deficits appreciated. Investigations: White blood count is 5000, hemoglobin 11.1, and creatinine is 1.24. Assessment And Recommendations: 1.Acute on chronic diastolic heart failure exacerbation. Agree with Lasix. Carefully monitor BUN, creatinine, and electrolytes. 2.Aortic valve stenosis with aortic valve regurgitation. On physical exam, the murmur of the aortic valve stenosis is late-peaking suggestive of severe aortic stenosis and the combination of that and at least moderate aortic valve regurgitation is probably what is causing his frequent hospitalization with heart failure. I recommend to keep the patient n.p.o. past midnight. We will plan for a left and right heart catheterization tomorrow morning across the aortic valve and getting an invasive grad ient and aortic valve area and decide for the need for aortic valve replacement. I will monitor the patient with you. SR/MODL Voice ID: [id number] Report ID: [id number]
[2021-03-30] MEDS ORDERED: RIVAROXABAN 10 MG TABLET PO SCH (17:00)
[2021-03-31] MEDS: FUROSEMIDE 40 MG/4 ML VIAL IV SCH ×3 (00:18→17:28)
[2021-03-31] MEDS: METOPROLOL TAR 25 MG TAB PO SCH ×2 (05:34→17:28)
[2021-03-31 05:36] LABS: Absolute Lymphocytes (CBC) 1.5 K/uL (0.7-4.9); Basophils % 0.4 % (0-1.3); Hematocrit 38.8 % (39.6-49.0); Lymphocytes % 27.9 % (15.3-44.8); MPV 8.8 fL (7.6-11.3); RBC Red Blood Cell Count 6.27 M/uL (4.33-5.43)
[2021-03-31] MEDS: lisinopriL 5 MG TAB PO SCH (05:45)
[2021-03-31 05:47] LABS: Albumin 2.8 g/dL (3.4-5.0); Bilirubin Total 0.7 mg/dL (0.2-1.0); Protein, Total 7.1 g/dL (6.4-8.2)
[2021-03-31 05:48] LABS: Magnesium 1.9 mg/dL (1.8-2.4); Potassium 3.7 mmol/L (3.5-5.1)
--- NOTE | 2021-03-31 06:07 | P.PN ---
Subjective Date of Service: 03/31/21 Primary Care Provider: None Chief Complaint: CHF exacerbation Physical Examination - Vital Signs Temperature: 97.2 F Blood Pressure: 140/65 Pulse: 62 Respirations: 18 Pulse Ox (%): 98 Assessment & Plan Physician Review Additional Text: COVID: Negative CXR: COMPARISON: Chest Single View dated 11/20/2020; Chest Single View dated 06/25/2020; Chest Single View dated 02/26/2020; Chest Single View dated 04/06/2019 FINDINGS: Lines: None. Lungs: Moderate widespread bilateral airspace disease, slightly worsened compared with 11/20/2020. The lung volumes are decreased. . Pleural: No significant pleural effusions or pneumothorax. Cardiac: Cardiomegaly. Bones: No acute fractures. IMPRESSION: Moderate multifocal interstitial and airspace disease which may reflect edema and/or multifocal pneumonia. CT Ab/Pelvis: Impression Anterior abdominal wall hernia containing omentum Cholelithiasis Fatty liver Cardiomegaly with minimal coronary artery calcification History of open reduction internal fixation of the right posterior acetabulum and right hip joint Venous doppler: COMPARISON: 02/26/2020 TECHNIQUE: Real-time sonographic evaluation of the bilateral lower extremity deep venous systems was performed. FINDINGS: Re- demonstrated partially compressible right popliteal and left popliteal veins with intraluminal echogenic material. The remaining veins are compressible, demonstrate normal waveforms, and normal color flow. IMPRESSION: Unchanged chronic popliteal vein thrombus bilaterally. No evidence of acute deep venous thrombosis. Physical exam: General: Alert, In no apparent distress, Oriented x3 HEENT: Neck supple Respiratory: Clear. Currently on room air. Cardiovascular: Regular rate/rhythm, Edema, Abnormal S1 S2, Systolic murmur Capillary refill: <2 Seconds Gastrointestinal: Normal bowel sounds, Soft and benign, No ascites, No tenderness Musculoskeletal: No tenderness Integumentary: Edema to the lower extremities improved. Neurological: Normal speech, Normal strength at 5/5 x4 extr, Normal tone, Normal affect Impression: Dyspnea, fever secondary to acute on chronic diastolic congestive heart failure with aortic regurgitation with possible superimposed pneumonia Urine tract infection Prediabetes CKD 3 Hypertension History of DVT on chronic anticoagulation therapy with medical noncompliance and history of IVC filter Plan: Dyspnea, fever secondary to acute on chronic diastolic congestive heart failure with aortic regurgitation complicated with possible bilateral pneumonia: Continue 1500 cc per day fluid restriction and low-salt diet. Patient remains on IV Lasix 40 mg 3 times a day. Patient noncompliant with medication. Previous echo done in November showed ejection fraction 55% with aortic regurgitation and aortic stenosis. Compliance with medication addressed in detail. Continue Rocephin and Zithromax to cover for possible pneumonia. Recheck chest x-ray tomorrow. Anticipate improvement over the next 48 hours. Urine tract infection: Patient on Rocephin. Await urine and blood culture results. Prediabetes: Continue diet control. Hemoglobin A1c 5.9. This can be monitored as an outpatient. CKD 3: Overall stable. Will monitor closely. Hypertension: Continue lisinopril 5 mg daily and metoprolol 25 mg 1 pill twice daily. Will monitor and adjust medication. History of DVT on chronic anticoagulation therapy with medical noncompliance and history of IVC filter: Xarelto 20 mg restarted. DVT PPX: Xarelto Code status: Full code Discharge Plan: Home at discharge
[2021-03-31 06:52] LABS: Anisocytosis 1+; Blood Morphology Comment NOTED (NOT SEEN); Platelet Estimate ADEQ; Polychromasia SLIGHT
[2021-03-31] MEDS: INSULIN -REGULAR HUMAN 50 UNIT/0.5 ML ML SQ SCH ×4 (07:30→21:00)
[2021-03-31] MEDS: CEFTRIAXONE 1,000 MG in NA CHLORIDE 0.9% 50 ML IVPB SCH (07:45)
[2021-03-31] MEDS: AZITHROMYCIN IV 500 MG in NA CHLORIDE 0.9% 250 ML IVPB SCH (10:26)
[2021-03-31] MEDS ORDERED: HEPA 1000U/500MLS 2,000 UNIT/1,000 ML BAG IV ONE (10:33)
[2021-03-31] MEDS ORDERED: LIDOCAINE 1% 20 ML MDV ONE (10:33)
[2021-03-31] MEDS ORDERED: MIDAZOLAM HCL 2 MG/2 ML INJ ONE (10:56)
[2021-03-31] MEDS ORDERED: FENTANYL CITR 100 MCG/2 ML ONE (10:56)
[2021-03-31] MEDS ORDERED: NA CHLORIDE 0.9% 500 ML ONE (10:57)
[2021-03-31] MEDS ORDERED: HEPARIN 5000 UNIT/ML 1 ML VIAL ONE (10:57)
[2021-03-31] MEDS ORDERED: VERAPAMIL HCL 10 MG/4 ML VIAL IV ONE (10:57)
[2021-03-31] MEDS ORDERED: ATROPINE SULF 1 MG/10 ML SYR IV ONE (10:57)
[2021-03-31] MEDS ORDERED: NITROGLYCERIN 100 MCG/ML SYR (for cath lab use only) IV ONE (10:57)
[2021-03-31] MEDS ORDERED: NITROGLYCERIN/D5W 25 MG/250 ML BTL IV ONE (10:58)
[2021-03-31] MEDS ORDERED: HEPA 1000U/500MLS 1,000 UNIT/500 ML BAG IV ONE (12:16)
--- NOTE | 2021-03-31 14:11 | OP ---
Date of Procedure: 03/31/2021 Surgeon: BAR HOUGH Procedures Performed: 1.Selective coronary angiogram. 2.Left heart catheterization. 3.Right heart catheterization. Indication: Aortic valve stenosis evaluation. Access: 1.Right femoral artery 6-Nigerian closed with StarClose. 2.Right radial artery 6-Nigerian closed with TR band. 3.Right IJ 7-Nigerian closed with manual pressure. Complications: None. Bleeding: Less than 10 mL. Description Of Procedure: After risks, benefits, and alternatives were explained, the patient agreed to proceed and signed informed consent. The patient was brought into the cardiac catheterization la boratory, prepped and draped in usual sterile fashion. We accessed right radial artery and using ped iatric micropuncture kit with a 6-Nigerian slender sheath, however, had some spasm, so we changed to a right femoral artery. Using micropuncture kit and ultrasound, accessed the right femoral artery and placed a 6-Nigerian [place] sheath. Accessed right IJ using ultrasound and micropuncture kit and plac ed a 7-Nigerian sheath and took a 7-Nigerian balloon-tipped Edgar catheter through the IJ into the RA, RV, PA, and pulmonary wedge and recorded waveform and pressure. Then, cardiac output was obt ained, then removed, then took a 5-Nigerian [place] 4.0 catheter into the aortic root, engaged left main, right coronary artery, took standard views and then I took the AL1 catheter into the aortic root and using a straight wire across the aortic valve and then exchanged for a pigtail and then measured LVE DP and pullback recorded gradient of 35 mmHg. Then, we removed the catheter and the sheath, and Star Close was used for closure and TR band for the radial and manual pressure for the IJ. Findings: 1.Left main is normal. 2.LAD proximal to mid with a 30% to 40% stenosis. Diagonal branch has proximal 80% stenosis. LAD i n the distal portion has a 70% focal stenosis. 3.Left circumflex is a moderate size with a [id number] 60% stenosis. 4.RCA is with luminal irregularities. 5.Cardiac output was 4.6 L/minute. Mean aortic valve gradient was 35 mmHg and aortic valve area was 1.0 sq cm, and the RA pressure was 12. RV pressure was 36/3 with mean of 8. PA pressure was 41/17 with a mean of 24 and pulmonary wedge pressure was 28 and LVEDP was 35. Conclusions: 1.Gdnf-of-olltdmuv coronary artery disease, nonobstructive. 2.Moderately severe aortic valve stenosis with mean gradient of 35 mmHg and valve area of 1.0 sq cm. 3.Elevated filling pressures. Plan: Continue diuretics. Monitor aortic valve. SR/MODL Voice ID: [id number] Report ID: [id number]
[2021-04-01] MEDS: FUROSEMIDE 40 MG/4 ML VIAL IV SCH ×3 (01:21→17:46)
[2021-04-01 02:48] VITALS: O2SAT 97
--- NOTE | 2021-04-01 05:41 | P.PN ---
Subjective Date of Service: 04/01/21 Primary Care Provider: None Chief Complaint: CHF exacerbation Subjective: Improving, Doing well Physical Examination - Vital Signs Temperature: 97.4 F Blood Pressure: 124/74 Pulse: 67 Respirations: 18 Pulse Ox (%): 98 - Studies Microbiology Data (last 24 hrs): 03/29/21 23:07 Blood - Blood Blood Culture Gram Stain - Final Assessment & Plan Discharge Plan: Home Plan to discharge in: 24 Hours Physician Review Additional Text: COVID: Negative CXR: COMPARISON: Chest Single View dated 11/20/2020; Chest Single View dated 06/25/2020; Chest Single View dated 02/26/2020; Chest Single View dated 04/06/2019 FINDINGS: Lines: None. Lungs: Moderate widespread bilateral airspace disease, slightly worsened compared with 11/20/2020. The lung volumes are decreased. . Pleural: No significant pleural effusions or pneumothorax. Cardiac: Cardiomegaly. Bones: No acute fractures. IMPRESSION: Moderate multifocal interstitial and airspace disease which may reflect edema and/or multifocal pneumonia. CT Ab/Pelvis: Impression Anterior abdominal wall hernia containing omentum Cholelithiasis Fatty liver Cardiomegaly with minimal coronary artery calcification History of open reduction internal fixation of the right posterior acetabulum and right hip joint Venous doppler: COMPARISON: 02/26/2020 TECHNIQUE: Real-time sonographic evaluation of the bilateral lower extremity deep venous systems was performed. FINDINGS: Re- demonstrated partially compressible right popliteal and left popliteal veins with intraluminal echogenic material. The remaining veins are compressible, demonstrate normal waveforms, and normal color flow. IMPRESSION: Unchanged chronic popliteal vein thrombus bilaterally. No evidence of acute deep venous thrombosis. Heart Cath: Date of Procedure: 03/31/2021 Surgeon: BAR HOUGH Procedures Performed: 1. Selective coronary angiogram. 2. Left heart catheterization. 3. Right heart catheterization. Indication: Aortic valve stenosis evaluation. Access: 1. Right femoral artery 6-Chinese closed with StarClose. 2. Right radial artery 6-Chinese closed with TR band. 3. Right IJ 7-Chinese closed with manual pressure. Complications: None. Bleeding: Less than 10 mL. Findings: 1. Left main is normal. 2. LAD proximal to mid with a 30% to 40% stenosis. Diagonal branch has proximal 80% stenosis. LAD in the distal portion has a 70% focal stenosis. 3. Left circumflex is a moderate size with a [id number] 60% stenosis. 4. RCA is with luminal irregularities. 5. Cardiac output was 4.6 L/minute. Mean aortic valve gradient was 35 mmHg and aortic valve area was 1.0 sq cm, and the RA pressure was 12. RV pressure was 36/3 with mean of 8. PA pressure was 41/17 with a mean of 24 and pulmonary wedge pressure was 28 and LVEDP was 35. Conclusions: 1. Rclu-cl-seplaeyz coronary artery disease, nonobstructive. 2. Moderately severe aortic valve stenosis with mean gradient of 35 mmHg and valve area of 1.0 sq cm. 3. Elevated filling pressures. Plan: Continue diuretics. Monitor aortic valve. Physical exam: General: Alert, In no apparent distress, Oriented x3 HEENT: Neck supple Respiratory: Clear. Currently on room air. Cardiovascular: Regular rate/rhythm, Edema, Abnormal S1 S2, Systolic murmur Capillary refill: <2 Seconds Gastrointestinal: Normal bowel sounds, Soft and benign, No ascites, No tenderness Musculoskeletal: No tenderness Integumentary: No significant edema to the lower extremities. 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 Patient does not meet criteria for valve replacement. Cardiology to further evaluate this to consider valve replacement in the future. For now continue IV Lasix 40 mg IV 3 times a day. Patient has significantly improved. Continue with lisinopril 5 mg daily and metoprolol 25 mg 1 pill twice daily. Overall improved. Recheck chest x-ray today. Will discuss further with cardiology. Likely discharge as early as today or tomorrow. Urine tract infection, urine culture positive for Proteus mirabilis: Will change IV antibiotic therapy to Augmentin. Patient will need to be treated for 7-day total. Currently on day 3 of treatment Prediabetes: Continue with ADA diet. Hemoglobin A1c 5.9. This can be monitored as an outpatient. Chronic renal disease stage II: Overall stable. Will monitor closely. Recommend no knots or anti-inflammatories. Hypertension: Overall stable. Continue lisinopril 5 mg daily and metoprolol 25 mg 1 pill twice daily. Will monitor and adjust medication. 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
[2021-04-01 06:08] LABS: Absolute Lymphocytes (CBC) 1.4 K/uL (0.7-4.9); Basophils % 0.5 % (0-1.3); Hematocrit 40.5 % (39.6-49.0); Lymphocytes % 25.3 % (15.3-44.8); MPV 8.9 fL (7.6-11.3); RBC Red Blood Cell Count 6.53 M/uL (4.33-5.43)
[2021-04-01 06:20] LABS: Albumin 2.8 g/dL (3.4-5.0); Bilirubin Total 0.5 mg/dL (0.2-1.0); Potassium 3.3 mmol/L (3.5-5.1); Protein, Total 7.2 g/dL (6.4-8.2)
[2021-04-01] MEDS: METOPROLOL TAR 25 MG TAB PO SCH ×2 (06:39→17:46)
[2021-04-01] MEDS: INSULIN -REGULAR HUMAN 50 UNIT/0.5 ML ML SQ SCH ×4 (07:30→21:00)
--- NOTE | 2021-04-01 09:31 | RAD REPORT ---
EXAM DESCRIPTION: RAD - Chest Single View - 04/01/2021 8:35 am CLINICAL HISTORY: follow up CHF COMPARISON: Chest Single View dated 03/31/2021; Chest Single View dated 03/29/2021hest Single View d ated 03/29/2021; Chest Single View dated 11/20/2020; Chest Single View dated 06/25/2020; Chest Single View dated 02/26/2020 FINDINGS: Lines: None. Lungs: Improved aeration of the lungs compared with 03/29/2021. Pleural: No significant pleural effusions or pneumothorax. Cardiac: Similar cardiomegaly. Bones: No acute fractures. Other: IMPRESSION: Mild improved aeration of the lungs compared with 03/29/2021. Per the clinical history, this is consistent with modest improvement in pulmonary edema.
[2021-04-01] MEDS: lisinopriL 5 MG TAB PO SCH (09:49)
[2021-04-01] MEDS: AMOX/K CLAV 500 MG TAB PO SCH ×2 (09:49→21:29)
[2021-04-01] MEDS ORDERED: RIVAROXABAN 10 MG TABLET PO SCH (17:00)
--- NOTE | 2021-04-01 17:59 | PN ---
Date of Progress Note: 04/01/2021 Subjective: Seen at bedside, doing clinically better, breathing much easier and no distress. Review of Systems: No chest pain or shortness of breath, orthopnea, cough. No nausea, vomiting, diarrhea. All other sy stems reviewed and are negative. Objective: Vital Signs: Reviewed. Head and Neck: Pupils are equal, reactive to light. Intact eye movements. No JVD. No cervical lym phadenopathy. Neck: Supple. Thyroid is not enlarged. Lungs: Clear to auscultation bilaterally. No rhonchi, rales, or crackles. No accessory muscle use. Heart: Regular rate and rhythm with a late peaking aortic systolic ejection murmur. Abdomen: Soft, nontender. Bowel sounds positive. No organomegaly. No masses or hernia. No rigidi ty or rebound. Extremities: No edema, clubbing, cyanosis. Intact pulses. Skin: No rashes. Neurologic: Alert, awake, oriented x3. No acute focal deficits appreciated. Investigations: Labs were reviewed. His BUN is 18, creatinine 1.38. Assessment And Recommendation: 1.Acute on chronic diastolic congestive heart failure exacerbation. At this point, he appears to be euvolemic. Switch Lasix to 40 mg by mouth twice a day and from cardiac standpoint, patient can be r eleased to follow up as an outpatient. 2.Coronary artery disease, moderate in severity. Recommend medical management for that. 3.Moderate to severe aortic valve stenosis. His mean gradient was 35 mmHg with a valve area of 1 sq .cm. This needs to be monitored closely. We will repeat an echo on him in 6 months. If this progre ssed to severe, we will plan for aortic valve replacement. I will be happy to follow up the patient on outpatient arena once gets discharged. SR/MODL Voice ID: [id number] Report ID: [id number]
[2021-04-01] MEDS ORDERED: ATORVASTATIN 40 MG TAB PO SCH (21:00)
[2021-04-02] MEDS: FUROSEMIDE 40 MG/4 ML VIAL IV SCH (00:59)
[2021-04-02] MEDS: METOPROLOL TAR 25 MG TAB PO SCH (05:35)
[2021-04-02 06:08] LABS: Absolute Lymphocytes (CBC) 1.8 K/uL (0.7-4.9); Basophils % 0.4 % (0-1.3); Hematocrit 39.8 % (39.6-49.0); Lymphocytes % 31.4 % (15.3-44.8); MPV 8.7 fL (7.6-11.3); RBC Red Blood Cell Count 6.46 M/uL (4.33-5.43)
[2021-04-02 06:18] LABS: Albumin 2.8 g/dL (3.4-5.0); Bilirubin Total 0.5 mg/dL (0.2-1.0); Potassium 3.4 mmol/L (3.5-5.1); Protein, Total 7.2 g/dL (6.4-8.2)
--- NOTE | 2021-04-02 06:24 | P.PN ---
Subjective Date of Service: 04/02/21 Primary Care Provider: None Chief Complaint: CHF exacerbation Subjective: Improving, Doing well Physical Examination - Vital Signs Temperature: 98.3 F Blood Pressure: 101/52 Pulse: 63 Respirations: 18 Pulse Ox (%): 98 - Studies Microbiology Data (last 24 hrs): 03/29/21 20:06 Catheterized Urine [place] Count - Final >100,000 CFU/ML. 03/29/21 20:06 Catheterized Urine - Final Proteus Mirabilis Gram Neg Jose Manuel Assessment & Plan Discharge Plan: Home Plan to discharge in: 24 Hours Physician Review Additional Text: COVID: Negative CXR: COMPARISON: Chest Single View dated 11/20/2020; Chest Single View dated 06/25/2020; Chest Single View dated 02/26/2020; Chest Single View dated 04/06/2019 FINDINGS: Lines: None. Lungs: Moderate widespread bilateral airspace disease, slightly worsened compared with 11/20/2020. The lung volumes are decreased. . Pleural: No significant pleural effusions or pneumothorax. Cardiac: Cardiomegaly. Bones: No acute fractures. IMPRESSION: Moderate multifocal interstitial and airspace disease which may reflect edema and/or multifocal pneumonia. CT Ab/Pelvis: Impression Anterior abdominal wall hernia containing omentum Cholelithiasis Fatty liver Cardiomegaly with minimal coronary artery calcification History of open reduction internal fixation of the right posterior acetabulum and right hip joint Venous doppler: COMPARISON: 02/26/2020 TECHNIQUE: Real-time sonographic evaluation of the bilateral lower extremity deep venous systems was performed. FINDINGS: Re- demonstrated partially compressible right popliteal and left popliteal veins with intraluminal echogenic material. The remaining veins are compressible, demonstrate normal waveforms, and normal color flow. IMPRESSION: Unchanged chronic popliteal vein thrombus bilaterally. No evidence of acute deep venous thrombosis. Heart Cath: Date of Procedure: 03/31/2021 Surgeon: BAR HOUGH Procedures Performed: 1. Selective coronary angiogram. 2. Left heart catheterization. 3. Right heart catheterization. Indication: Aortic valve stenosis evaluation. Access: 1. Right femoral artery 6-[place] closed with StarClose. 2. Right radial artery 6-[place] closed with TR band. 3. Right IJ 7-[place] closed with manual pressure. Complications: None. Bleeding: Less than 10 mL. Findings: 1. Left main is normal. 2. LAD proximal to mid with a 30% to 40% stenosis. Diagonal branch has proximal 80% stenosis. LAD in the distal portion has a 70% focal stenosis. 3. Left circumflex is a moderate size with a iri-sv-wnixmr 60% stenosis. 4. RCA is with luminal irregularities. 5. Cardiac output was 4.6 L/minute. Mean aortic valve gradient was 35 mmHg and aortic valve area was 1.0 sq cm, and the RA pressure was 12. RV pressure was 36/3 with mean of 8. PA pressure was 41/17 with a mean of 24 and pulmonary wedge pressure was 28 and LVEDP was 35. Conclusions: 1. Lmmj-xn-fyiixmbf coronary artery disease, nonobstructive. 2. Moderately severe aortic valve stenosis with mean gradient of 35 mmHg and valve area of 1.0 sq cm. 3. Elevated filling pressures. Plan: Continue diuretics. Monitor aortic valve. Physical exam: General: Alert, In no apparent distress, Oriented x3 HEENT: Neck supple Respiratory: Clear. Currently on room air. Cardiovascular: Regular rate/rhythm, Edema, Abnormal S1 S2, Systolic murmur Capillary refill: <2 Seconds Gastrointestinal: Normal bowel sounds, Soft and benign, No ascites, No tenderness Musculoskeletal: No tenderness Integumentary: No significant edema to the lower extremities. 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 Patient does not meet criteria for valve replacement. Charged home today. Cardiology recommends to follow-up with cardiology. Recommend recheck echocardiogram in 6 months to consider future valve replacement. Patient will be discharged home. At discharge patient will continue with Lasix 40 mg daily. Continue with blood pressure medication. Will arrange for patient to establish care locally or with the [place]. Urine tract infection, urine culture positive for Proteus mirabilis: Will change IV antibiotic therapy to Augmentin. Patient will need to be treated for 7-day total. Currently on day 3 of treatment Prediabetes: Continue with ADA diet. Hemoglobin A1c 5.9. This can be monitored as an outpatient. Chronic renal disease stage II: Overall stable. Will monitor closely. No further use of nonsteroidal anti-inflammatories. Hypertension: Overall stable. Continue lisinopril 5 mg daily and metoprolol 25 mg 1 pill twice daily. Will monitor and adjust medication. 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
[2021-04-02] MEDS: INSULIN -REGULAR HUMAN 50 UNIT/0.5 ML ML SQ SCH (07:30)
--- NOTE | 2021-04-02 07:49 | P.DS ---
Admission Date: 03/29/21 Discharge Date: 04/02/21 Primary Care Provider: RONN Disposition: ROUTINE DISCHARGE Discharge Condition: GOOD Reason for Admission: CHF exacerbation Consultations: Cardiology-Dr. Hough Procedures: COVID: Negative CXR: COMPARISON: Chest Single View dated 11/20/2020; Chest Single View dated 06/25/2020; Chest Single View dated 02/26/2020; Chest Single View dated 04/06/2019 FINDINGS: Lines: None. Lungs: Moderate widespread bilateral airspace disease, slightly worsened compared with 11/20/2020. The lung volumes are decreased. . Pleural: No significant pleural effusions or pneumothorax. Cardiac: Cardiomegaly. Bones: No acute fractures. IMPRESSION: Moderate multifocal interstitial and airspace disease which may reflect edema and/or multifocal pneumonia. CT Ab/Pelvis: Impression Anterior abdominal wall hernia containing omentum Cholelithiasis Fatty liver Cardiomegaly with minimal coronary artery calcification History of open reduction internal fixation of the right posterior acetabulum and right hip joint Venous doppler: COMPARISON: 02/26/2020 TECHNIQUE: Real-time sonographic evaluation of the bilateral lower extremity deep venous systems was performed. FINDINGS: Re- demonstrated partially compressible right popliteal and left popliteal veins with intraluminal echogenic material. The remaining veins are compressible, demonstrate normal waveforms, and normal color flow. IMPRESSION: Unchanged chronic popliteal vein thrombus bilaterally. No evidence of acute deep venous thrombosis. Heart Cath: Date of Procedure: 03/31/2021 Surgeon: BAR HOUGH Procedures Performed: 1. Selective coronary angiogram. 2. Left heart catheterization. 3. Right heart catheterization. Indication: Aortic valve stenosis evaluation. Access: 1. Right femoral artery 6-Micronesian closed with Star[employer]. 2. Right radial artery 6-Micronesian closed with TR band. 3. Right IJ 7-Micronesian closed with manual pressure. Complications: None. Bleeding: Less than 10 mL. Findings: 1. Left main is normal. 2. LAD proximal to mid with a 30% to 40% stenosis. Diagonal branch has proximal 80% stenosis. LAD in the distal portion has a 70% focal stenosis. 3. Left circumflex is a moderate size with a [id number]-[id number] 60% stenosis. 4. RCA is with luminal irregularities. 5. Cardiac output was 4.6 L/minute. Mean aortic valve gradient was 35 mmHg and aortic valve area was 1.0 sq cm, and the RA pressure was 12. RV pressure was 36/3 with mean of 8. PA pressure was 41/17 with a mean of 24 and pulmonary wedge pressure was 28 and LVEDP was 35. Conclusions: 1. Xuks-zq-fduozqwr coronary artery disease, nonobstructive. 2. Moderately severe aortic valve stenosis with mean gradient of 35 mmHg and valve area of 1.0 sq cm. 3. Elevated filling pressures. Plan: Continue diuretics. Monitor aortic valve. 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 Patient noted to have 4+ pitting edema bilateral lower extremities as well as some moderate tachypnea in the emergency room. Upon further evaluation patient found to have UTI with CHF. Patient admitted for treatment. Hospital Course: Patient presented with dyspnea secondary to acute on chronic diastolic CHF. Patient was evaluated. Patient received IV Lasix with improvement. Patient seen and evaluated by cardiology. Cardiology recommended heart catheterization to further evaluate. Heart catheterization showed moderately severe aortic stenosis with mean gradient of 35 mmHg and valve area of 1.0 cm. Patient also found to have mild to moderate nonobstructive coronary artery disease. Patient did well with diuresis. Patient does not meet criteria for valve replacement at this time. Cardiology plans to follow patient closely as an outpatient for possible valve replacement in the future. Patient will need a repeat echocardiogram in 6 months. If echo shows severe disease then patient may be qualified for valve replacement. At discharge patient will continue with a 1500 cc/day fluid restriction and low-salt diet. Recommend to monitor his weight daily. If his weight increases by more than 5 pounds he is to contact his PCP or cardiology for further recommendation. At discharge the patient will continue with Lasix 40 mg 1 pill twice daily, Lipitor 40 mg daily, lisinopril 5 mg daily, and metoprolol 25 mg daily. Recommend follow-up with cardiology in 1 to 2 weeks to follow-up his hospitalization. Recommend to follow-up with PCP in 1 week to follow-up his hospitalization. Education on CHF, aortic stenosis provided. Patient found to have a UTI. Urine culture was positive for Proteus mirabilis. Patient responded well to antibiotic therapy. At discharge patient will continue with Augmentin 500 mg 1 pill twice daily for 3 more days. UTI prevention provided. Patient with prediabetes. Continue with ADA diet at discharge. No need for medication at this time. Hemoglobin A1c 5.9. Recommend to recheck hemoglobin A1c in 3 months to monitor his progress. Recommend follow-up with PCP as an outpatient to further monitor and address. Patient with chronic renal disease stage II. Overall stable. Recommend no nonsteroidal anti-inflammatories. Recommend to recheck labBMP in 2 to 4 weeks to monitor his progress. Patient with hypertension. Medication started during the course of his stay. Blood pressure improved. At discharge patient will continue with lisinopril 5 mg daily and metoprolol 25 mg 1 pill twice daily. Recommend to maintain blood pressure less than 130/80. Blood pressure remains above 140/90 further adjustment may be required. May hold medication if blood pressure systolic less than 110. Follow-up with PCP to further monitor and address. Patient with history of DVT on chronic anticoagulation therapy with history of medical noncompliance. Patient also with history of IVC filter. Compliance addressed in detail. At discharge patient will continue with Xarelto 20 mg daily. Patient with hyperlipidemia. Medications started during the course of his stay. Recommend to continue Lipitor 40 mg daily. Recommend to recheck labfasting lipid panel and CMP in 4 to 6 weeks to monitor his progress. Vital Signs/Physical Exam: Temp Pulse Resp BP Pulse Ox 98.3 F 63 18 101/52 L 98 04/02/21 07:47 04/02/21 07:47 04/02/21 07:47 04/02/21 07:47 04/02/21 07:47 General: Alert, In no apparent distress, Oriented x3, Cooperative HEENT: Atraumatic Neck: Supple Respiratory: Clear to auscultation bilaterally, Normal air movement Cardiovascular: Normal pulses, Regular rate/rhythm Gastrointestinal: Normal bowel sounds Musculoskeletal: No erythema, No tenderness, No warmth Integumentary: No tenderness/swelling, No erythema, No warmth, No cyanosis Neurological: Normal speech, Normal strength at 5/5 x4 extr, Normal tone Laboratory Data at Discharge: WBC 5.80 K/uL (4.3-10.9) 04/02/21 05:13 Hgb 12.3 g/dL (13.6-17.9) L 04/02/21 05:13 Hct 39.8 % (39.6-49.0) 04/02/21 05:13 Plt Count 174 K/uL (152-406) 04/02/21 05:13 PT 12.6 SECONDS (9.5-12.5) H 03/29/21 20:07 INR 1.09 03/29/21 20:07 APTT 30.1 SECONDS (24.3-36.9) 03/29/21 20:07 Sodium 140 mmol/L (136-145) 04/02/21 05:13 Potassium 3.4 mmol/L (3.5-5.1) L 04/02/21 05:13 BUN 21 mg/dL (7-18) H 04/02/21 05:13 Creatinine 1.52 mg/dL (0.55-1.3) H 04/02/21 05:13 Glucose 112 mg/dL (74-106) H 04/02/21 05:13 Magnesium 2.0 mg/dL (1.8-2.4) 04/02/21 05:13 Total Bilirubin 0.5 mg/dL (0.2-1.0) 04/02/21 05:13 AST 16 U/L (15-37) 04/02/21 05:13 ALT 19 U/L (12-78) 04/02/21 05:13 Alkaline Phosphatase 83 U/L (45-117) 04/02/21 05:13 Triglycerides 41 mg/dL (<150) 03/30/21 02:57 Cholesterol 208 mg/dL (<200) H 03/30/21 02:57 HDL Cholesterol 59 mg/dL (40-60) 03/30/21 02:57 Cholesterol/HDL Ratio 3.53 03/30/21 02:57 Lipase 147 U/L (73-393) 03/29/21 20:07 Home Medications: Amox/Clavulanate [Augmentin 500-125 mg Tab*] 500 mg PO BID #6 tab 04/01/21 Atorvastatin Calcium [Lipitor] 40 mg PO BEDTIME #30 tab 04/01/21 Metoprolol Tartrate 25 mg PO BID #60 tablet 04/01/21 Rivaroxaban [Xarelto] 20 mg PO DAILY #30 tablet 04/01/21 lisinopriL [Prinivil*] 5 mg PO DAILY #30 tab 04/01/21 Furosemide [Lasix] 40 mg PO BIDL #60 tab 04/02/21 New Medications: Amox/Clavulanate [Augmentin 500-125 mg Tab*] 500 mg PO BID #6 tab Furosemide [Lasix] 40 mg PO BIDL #60 tab Atorvastatin Calcium [Lipitor] 40 mg PO BEDTIME #30 tab Metoprolol Tartrate 25 mg PO BID #60 tablet lisinopriL [Prinivil*] 5 mg PO DAILY #30 tab Rivaroxaban [Xarelto] 20 mg PO DAILY #30 tablet Physician Discharge Instructions: Patient presented with dyspnea secondary to acute on chronic diastolic CHF. Patient was evaluated. Patient received IV Lasix with improvement. Patient seen and evaluated by cardiology. Cardiology recommended heart catheterization to further evaluate. Heart catheterization showed moderately severe aortic stenosis with mean gradient of 35 mmHg and valve area of 1.0 cm. Patient also found to have mild to moderate nonobstructive coronary artery disease. Patient did well with diuresis. Patient does not meet criteria for valve replacement at this time. Cardiology plans to follow patient closely as an outpatient for possible valve replacement in the future. Patient will need a repeat echocardiogram in 6 months. If echo shows severe disease then patient may be qualified for valve replacement. At discharge patient will continue with a 1500 cc/day fluid restriction and low-salt diet. Recommend to monitor his weight daily. If his weight increases by more than 5 pounds he is to contact his PCP or cardiology for further recommendation. At discharge the patient will continue with Lasix 40 mg 1 pill twice daily, Lipitor 40 mg daily, lisinopril 5 mg daily, and metoprolol 25 mg daily. Recommend follow-up with cardiology in 1 to 2 weeks to follow-up his hospitalization. Recommend to follow-up with PCP in 1 week to follow-up his hospitalization. Education on CHF, aortic stenosis provided. Patient found to have a UTI. Urine culture was positive for Proteus mirabilis. Patient responded well to antibiotic therapy. At discharge patient will continue with Augmentin 500 mg 1 pill twice daily for 3 more days. UTI prevention provided. Patient with prediabetes. Continue with ADA diet at discharge. No need for medication at this time. Hemoglobin A1c 5.9. Recommend to recheck hemoglobin A1c in 3 months to monitor his progress. Recommend follow-up with PCP as an outpatient to further monitor and address. Patient with chronic renal disease stage II. Overall stable. Recommend no nonsteroidal anti-inflammatories. Recommend to recheck labBMP in 2 to 4 weeks to monitor his progress. Patient with hypertension. Medication started during the course of his stay. Blood pressure improved. At discharge patient will continue with lisinopril 5 mg daily and metoprolol 25 mg 1 pill twice daily. Recommend to maintain blood pressure less than 130/80. Blood pressure remains above 140/90 further adjustment may be required. May hold medication if blood pressure systolic less than 110. Follow-up with PCP to further monitor and address. Patient with history of DVT on chronic anticoagulation therapy with history of medical noncompliance. Patient also with history of IVC filter. Compliance addressed in detail. At discharge patient will continue with Xarelto 20 mg daily. Patient with hyperlipidemia. Medications started during the course of his stay. Recommend to continue Lipitor 40 mg daily. Recommend to recheck labfasting lipid panel and CMP in 4 to 6 weeks to monitor his progress. Diet: AHA Activity: Ad fabiano Followup: NONE,NONE [Primary Care Provider] - Time spent managing pt's care (in minutes): 55
[2021-04-02] MEDS: lisinopriL 5 MG TAB PO SCH (08:20)
[2021-04-02] MEDS: AMOX/K CLAV 500 MG TAB PO SCH (08:20)
[2021-04-02 08:22] VITALS: BP 113/63
[2021-04-02] MEDS ORDERED: FUROSEMIDE 40 MG TABLET PO SCH (09:00)
[2021-04-02 09:17] VITALS: TEMP 97.5
== END 2021-04-02 09:18 | disposition left against medical advice (07) | DRG 286 ==
LOC: ER 18:35 → ERHOLD 23:10 → 4TH 03-30 00:25 → 2ND 03-31 17:16
PROVIDERS: ADMIT Family Medicine; ATTEND Family Medicine
PROC: 4A023N8 Measurement of Cardiac Sampling and Pressure, Bilateral, Percutaneous Approach (ICD-10-PCS; principal; 2021-03-31)
PROC: B206YZZ Plain Radiography of Right and Left Heart using Other Contrast (ICD-10-PCS; 2021-03-31)
PROC: B201YZZ Plain Radiography of Multiple Coronary Arteries using Other Contrast (ICD-10-PCS; 2021-03-31)
DX: I13.0 Hypertensive heart and chronic kidney disease with heart failure and stage 1 through stage 4 chronic kidney disease, or unspecified chronic kidney disease (principal); I50.33 Acute on chronic diastolic (congestive) heart failure; J18.9 Pneumonia, unspecified organism; N39.0 Urinary tract infection, site not specified; N18.2 Chronic kidney disease, stage 2 (mild); B96.4 Proteus (mirabilis) (morganii) as the cause of diseases classified elsewhere; I25.10 Atherosclerotic heart disease of native coronary artery without angina pectoris; I35.0 Nonrheumatic aortic (valve) stenosis; R73.03 Prediabetes; E78.5 Hyperlipidemia, unspecified; Z91.19 Patient's noncompliance with other medical treatment and regimen; Z79.01 Long term (current) use of anticoagulants; Z86.718 Personal history of other venous thrombosis and embolism; Z20.822 Contact with and (suspected) exposure to COVID-19
CPT/HCPCS: 0240U; 36415; 71045; 74177; 80048; 80053; 80061; 80076; 81003; 81015; 82553; 82947; 83036; 83605; 83690; 83735; 83880; 84145; 84439; 84443; 84484; 85025; 85610; 85730; 87040; 87077; 87086; 87088; 87186; 87205; 93005; 93460; 93970; 96374; 99285; C1893; J0456; J1644; J1940; J2250; J3010; J7040; J7050; Q9967

== ENCOUNTER 2021-06-10 10:43 | Observation (INO) | payer OTHER ==
--- OUTSIDE RECORDS SUMMARY | 2021-06-10 10:49 | XMS REPORT | Continuity of Care Document ---
:1945 Author Organization [facility] t Address [address] [place] [address] Care Team Providers Name Role Phone Asked, Pcp Primary Care Physician Unavailable Sunday CAMARGO Attending Clinician ROYER BLANK Attending Clinician Unavailable ROYER BLANK Admitting Clinician Unavailable Payers Payer Name Policy Type Policy Number Effective Date Expiration Date S ource Problems Condition Condition Condition Status Onset Resolution Last Treating Co mments Source Name Details Category Date Date Treatment Clinician Date SUPRAVENTR Diagnosis Active 2020-01-19 Memoria ICULAR 11-27 13:03:00 l TACHYCARDI 00:00: Brody Fields ACUTE SUPRAVENTR 00 BREANNA ICULAR TACHYCARDI A, ACUTE BREANNA Active 11/28/2019 [facility] BREATHING Diagnosis Active 2019-11-28 Memoria PROBLEM 11-27 23:36:00 l 00:00: Kenneth BREATHING 00 PROBLEM Active 11/28/2019 [facility] COVID-19 COVID-19 Disease Active Metho di virus virus 11-24 detected detected 00:00: Hospit a 00 l Shortness Shortness Disease Active [facility] of breath of breath 11-23 00:00: Hospita 00 l DVT/LEGS Diagnosis Active 2014-042015-03-15 M emoria SWOLLEN 05-11 03:10:00 l DVT/LEGS 00:00: Brody n SWOLLEN 00 Active 03/11/2015 [facility] LEG PAIN Diagnosis Active 2012-12-23 M emoria 12-23 04:15:00 l LEG PAIN 00:00: Brody n 00 Active 12/23/2012 [facility] Hypertensi Problem Resolve 2019-12-10 Memoria ve d 22:38:00 l disorder, Kenneth systemic Hypertensi arterial ve (disorder) disorder, systemic arterial (disorder) Resolved Problem 12/10/2019 [facility] Neuropathy Problem Resolve 2019-12-10 Memoria (disorder) d 22:38:00 l [place] Neuropathy (disorder) Resolved Problem 12/10/2019 [facility] Diabetes Problem Resolve 2012-12-25 Me moria mellitus d 21:52:45 l Diabetes Brody n mellitus Resolved Problem 12/25/2012 [facility] Gout Problem Resolve 2012-12-25 Caden karine d 21:52:45 l Gout Kenneth Resolved Problem 12/25/2012 [facility] Hypertensi Problem Resolve 2012-12-25 Memoria on d 21:52:45 l [place] Hypertensi on Resolved Problem 12/25/2012 [facility] Neuropathy Problem Resolve 2012-12-25 Memoria d 21:52:45 l Kenneth Neuropathy Resolved Problem 12/25/2012 [facility] Type II Problem Active 2019-12-10 Caden karine diabetes 22:38:00 l mellitus Type II Mariam nn uncontroll diabetes ed mellitus (finding) uncontroll ed (finding) Active Problem 12/10/2019 [facility] SUPRAVENTR Diagnosis Active 2020-01-19 Memoria ICULAR 13:03:00 l TACHYCARDI Brody n A SUPRAVENTR ICULAR TACHYCARDI A Active [facility] ACUTE Diagnosis Active 2020-01-19 Mem oria KIDNEY 13:03:00 l FAILURE, ACUTE Kenneth UNSPECIFIE KIDNEY D FAILURE, UNSPECIFIE D Active [facility] TYPE 2 Diagnosis Active 2020-01-19 Mem oria DIABETES 13:03:00 l MELLITUS TYPE 2 Brody n WITH DIABETES HYPERGLYCE MELLITUS WITH HYPERGLYCE Active [facility] Supraventr Problem 2019-12-10 M emoria icular 22:38:00 l tachycardi Brody n a Supraventr icular tachycardi a 12/10/2019 [facility] Diabetes Problem Resolve 2019-12-10 Me moria mellitus d 22:38:00 l (disorder) Diabetes He rmann mellitus (disorder) Resolved Problem 12/10/2019 [facility] Gout Problem Resolve 2019-12-10 Caden karine (disorder) d 22:38:00 l Gout [place] (disorder) Resolved Problem 12/10/2019 [facility] History of Past Illness Condition Condition Condition Status Onset Resolution Last Treating Co mments Source Name Details Category Date Date Treatment Clinician Date Discharge Problem 2014-042015-03-18 2015-03-18 Memoria Diagnosis: 05-15 05:51:43 05:51:43 l Acute DVT 06:00: Kenneth (deep Discharge 00 venous Diagnosis: thrombosis Acute DVT ) (deep venous thrombosis ) 03/15/2015 03/18/2015 [facility] Allergies, Adverse Reactions, Alerts Allergy Allergy Status Severity Reaction(s) Onset Inactive Treating Comm ents Source Name Type Date Date Clinician NO KNOWN Drug Active Univers ALLERGIE Class ity of [facility] Social History Social Habit Start Date Stop Date Quantity Comments Source Sex Assigned At [facility] y of [facility] Exposure to Not sure [facility] SARS-CoV-2 [facility] (event) Branch History SDDE Mormonism Alcohol Std Hospital Drinks History SDOH [facility] Alcohol Binge Hospital History SDDE [facility] Alcohol Comment Hospital Social History 2019-11-29 2019-11-29 [facility] catalino 08:52:56 08:52:56 Alcohol intake 2019-11-26 2019-11-26 Lifetime Mormonism 00:00:00 00:00:00 non-drinker Hospital (finding) History SDDE 2019-11-25 2019-11-25 1 [facility]ism Alcohol Frequency 00:00:00 00:00:00 Hospita l Tobacco use and 2019-11-24 2019-11-24 Smokeless tobacco Me [facility]odist exposure 00:00:00 00:00:00 non-user Hospital Smoking Status Start Date Stop Date Source Unknown if ever smoked [facility] Social [facility] Medications Ordered Filled Start Stop Current Ordering Indication Dosage Frequency Signature Comments Components Source Medication Medication Date Date Medication? Clinician (SIG) Name Name cefTRIAXone 2019-04- 1000mg 1,000 mg, Univers (ROCEPHIN) 2- 12-28 IV ity of 1,000 mg in 02:00: 01:33 [place], [place] NaCl 0.9% 00 :00 ONCE, 1 Medical (NS) 50 mL dose, Sun Bran ch MINI-BAG 04/17/20 at 2000, 50 mL
Reas on for Anti-Infec tive: Documented Infection< br>Documen casey Infection Site: Urine
D uration of Therapy: Other (see Comments) NaCl 0.9% 2019-04 No 1000mL at 999 Uni vers (NS) bolus 06-19- mL/hr, ity of infusion 02:00: 01:51 1,000 mL, Reynaldo as 1,000 mL 00 :00 IV Medical Infusion, Branch ONCE, 1 dose, 04/17/20 at 2000, STAT ondansetron 2019-04 No 4mg 4 mg, Slow Univers (ZOFRAN 06-19 IV Push, ity of (PF)) 01:15: 00:19 ONCE, 1 [place] injection 4 00 :00 dose, [place] [facility] ical mg 04/17/20 Branch at 1915, ROMAN iohexol 2019-04 No 120mL 120 mL, Unive rs (OMNIPAQUE 06-19 Intravenou it y of 350 01:00: 00:48 s, ONCE, 1 [place] BULK-150 00 :00 dose, Sun Medica l mL) 04/17/20 Branch injection at 1900, 120 mL Routine ondansetron 2019-04 Yes [id number] 4mg Take 1 Univers (ZOFRAN 2-27 tablet by ity of ODT) 4 mg 00:00: mouth [place] disintegrat 00 every 8 Medic al ing tablet (eight) Branch hours as needed for Nausea and Vomiting (N/V). cefpodoxime 2019-04 [id number] 100mg Take 1 Univers 100 mg 2- 01-04 tablet by ity of tablet 00:00: 05:59 mouth 2 [place] 00 :00 (two) Medical times Branch daily for 7 days. metoprolol Yes 25 mg = 1 Me moria succinate 8-18 cap, PO, l 25 mg oral 20:19: Daily, # Her melchor capsule, 00 30 cap, 0 extended Refill(s) release metoprolol No 25 mg = 1 Me moria tartrate 25 8-18 tab, PO, l mg oral 18:18: Q12H, # 60 Herm fred tablet 00 tab, 0 Refill(s) rivaroxaban 2020-0 Yes 20 mg = 1 M emoria 20 mg oral 8-18 tab, PO, l tablet 18:18: QPM, For [place] 00 Deep Venous Thrombosis / Pulmonary Embolism, # 30 tab, 0 Refill(s) Glipizide 5 2020-0 Yes 5 mg = 1 Me moria MG Oral 8-18 tab, PO, l Tablet 18:18: BID-Before Mariam nn 00 Meals, # 60 tab, 0 Refill(s) Saline 2019-0 No Notes: Memoria Flush 0.9% 8-18 Same as: l 02:00: BD [place] 00 Posiflush Sterile Saline 2019-0 No Notes: Memoria Flush 0.9% 8-17 Same as: l 17:49: BD Kenneth Posiflush Sterile Xarelto 2019-0 No Notes: Memoria 8-10 (Same as: l 22:00: Xarelto) [place] 00 Administer with food metoprolol 2019-0 No Notes: Memor ia tartrate 8-10 (Same as: l 14:00: Lopressor) morphine 2019-0 No Notes: Memoria Sulfate 8-10 (Same l 08:39: as:MORPhin Kenneth e Sulfate) carvedilol 2019-0 No Notes: Memor ia 8-10 Give with l 02:00: food. [place] (Same As: Coreg) Adenosine 2019-0 No Notes: Memori a 8-09 Rapid IV l 22:36: PUSH over Kenneth 00 1-2 sec; Flush line immediatel y after drug is given. Lac-Hydrin 2019-0 No Notes: Memor ia 8-09 (Same as: l 22:00: Ainhactin) Xarelto 2019-0 No = 15 Memoria 8-09 mL/min, l 22:00: Start [place] date: 11/29/19 17:00:00 CDT, Duration: 30 day, Stop date: 12/28/19 17:00:00 CDT, For Deep Venous Thrombosis / Pulmonary Embolism Lactic acid 2020-0 No 1 appl, Mem oria 100 MG/ML 8 Route: l Topical 14:00: TOP, BID, Mariam [...] 00 30 tab, 0 release Refill(s) Dextrose 2019-0 No 12.5 gm, Memor ia 50% Syringe 11-28 25 mL, l (D50W) 07:13: Route: Kenneth 00 IVP, Drug Form: INJ, Dosing Weight 113.636, kg, PRN, PRN Blood Glucose Results, Start date: 11/29/19 2:13:00 CDT, Duration: 30 day, Stop date: 12/29/19 2:12:00 CDT, 0 Glucagon 2019-0 No 1 mg, Memoria 11-28 Route: IM, l 07:13: Drug form: PDR/INJ, PRN, Dosing Weight 113.636, kg, PRN Blood Glucose Results, Start date: 11/29/19 2:13:00 CDT, Duration: 30 day, Stop date: 12/29/19 2:12:00 CDT, 0 Insulin 2019-0 No Notes: oria Lispro 11-28 (Same as: l 07:13: Humalog) Roll in palms of hands gently; Do not shake vigorously . WASTE: F/P - Black; E - Municipal Trash Bin Stable for 28 days at room temperatur e. Expires in days from ____Date Docusate No Notes: Memoria 11-28 (Same as: l 07:11: Colace) (Do Not Crush) Ondansetron 2019-0 No Notes: Caden karine 11-28 (Same as: l 07:11: Zofran) MEDICATION WASTE Product Size: 4 mg Product Wasted: ___ mg Trazodone 2019-0 No Notes: Memori a 11-28 (Same As: l 07:11: Desyrel) [place] 00 Acetaminoph 2019-0 No Notes: Do M emoria en 11-28 not exceed l 07:11: 4 gm/day. [place] 00 (Same as: Tylenol) Lactated 0 No 1,000 mL, Caden karine Ringers IV 11-28 Rate: 75 l 1,000 mL 07:11: ml/hr, [place] 00 Infuse over: 13.3 hr, Route: IV, Dosing Weight 113.636 kg, Total Volume: 1,000, Priority: Routine, Start date: 11/29/19 2:11:00 CDT, Duration: 30 day, Stop date: 12/29/19 2:10:00 CDT, 2.44, m2, 0 Maalox 2019-0 No Notes: Memoria Advanced 11-28 (aluminum l Regular 07:11: hydroxide- Herm fred Strength 00 magnesium SUSP hyd-simeth icone 200-200-20 mg/5ml 30 ml ud PABLO) Morphine 0 No Notes: Memoria 11-28 (Same l 07:11: as:MORPhin Kenneth e Sulfate) Albuterol 0 No Notes: Memori a 0.833 MG/ML 11-28 (Same as: l / 07:11: Duoneb) Ipratropium 00 [place] 0.167 MG/ML Inhalant Solution [DuoNeb] Hydralazine 0 No Notes: Caden karine 11-28 (Same as: l 07:11: Apresoline Kenneth ) Push over 5 minutes No known 0 No No known Metho di medications 11-[address] 23:01: s Hospita 01 l 1 ML 2014-04 Yes 130 mg, Memoria Enoxaparin 1-24 SUB-Q, l sodium 150 13:43: Q12H, # 10 H ermann MG/ML 00 ea, 0 Prefilled Refill(s) Syringe [Lovenox] warfarin 2014-04 Yes 10 mg = 1 M emoria mg oral 1-24 tab, PO, l tablet 13:43: Daily, # [place] 00 14 tab, 0 Refill(s) 1 ML 2014-04 No 130 mg, Memoria Enoxaparin 1-24 SUB-Q, l sodium 150 13:40: Q12H, # 10 H ermann MG/ML 28 ea, 0 Prefilled Refill(s) Syringe [Lovenox] Lovenox 2014-04 Yes Notes: Memoria 24 Nurse to l 13:39: ensure [place] 00 documentat ion of patient education per anticoagul ation policy. (Same as: Lovenox) warfarin 2014-04 No 10 mg = 1 M emoria mg oral 24 tab, PO, l tablet 13:31: Daily, # Kenneth 00 14 tab, 0 Refill(s) 1 ML 2014-04 No 150 mg, Memoria Enoxaparin -24 SUB-Q, l sodium 150 13:30: Q12H, # 10 H ermann MG/ML 00 ea, 0 Prefilled Refill(s) Syringe [Lovenox] Lovenox 2014-04 No 150 mg, Memoria 05-15 Route: l 13:15: SUB-Q, Kenneth 00 ONCE, Dosing Weight 127.273, kg, Start date: 03/15/15 7:15:00, Stop date: 03/15/15 7:15:00 PlasmaLyte 2014-04 No Notes: Memor ia A PH-7.4 05-15 (Same as: l 1,000 mL 10:42: Isolyte S Herm fred 00 PH 7.4) colchicine Yes Silvia K 0.6 mg, 1 Memoria 0.6 mg oral - [facility] tab, PO, l tablet 09:47: Q1H, PRN, Brody n 55 10 tab, Other-See Comments, Substituti on Allowed tramadol 50 Yes Silvia K 50 mg, 1 Memoria mg oral 9- [facility] tab, PO, l tablet 09:47: Q6H, PRN, Brody n 20 40 tab, Pain, Substituti on Allowed, TAB allopurinol Yes Silvia K 300 mg, 1 Memoria 300 mg oral - [facility] tab, PO, l tablet 09:47: Daily, 30 Brody n 10 tab, Substituti on Allowed, TAB allopurinol No Silvia K 300 mg, 1 Memoria 12-23 [facility] tab, l 09:08: Route: PO, [place] 00 Drug form: TAB, ONCE, Dosing Weight 135, kg, Start date: 12/23/12 4:08:00, Stop date: 12/23/12 4:08:00 [place] No Silvia K 1 tab, Memori a 7.5/325 12-23 [facility] Route: PO, l oral tablet 08:48: Drug Form: [place] 00 TAB, Dosing Weight 135, kg, ONCE, Start date: 12/23/12 3:48:00, Stop date: 12/23/12 3:48:00 ketorolac No Silvia K 30 mg, 1 Memoria 12-23 [facility] mL, Route: l 08:45: IM, Drug form: INJ, ONCE, Dosing Weight 135, kg, Priority: STAT, Start date: 12/23/12 3:45:00, Stop date: 12/23/12 3:45:00 allopurinol No Silvia K Route: PO, Memoria 12-[facility] ONCE, l 08:45: Dosing Kenneth 00 Weight 135, kg, Start date: 12/23/12 3:45:00, Stop date: 12/23/12 3:45:00 Vital Signs Vital Name Observation Time Observation Value Comments Source Systolic blood 2020-04-18 01:00:00 141 mm[Hg] [facility] Diastolic blood 2020-04-18 01:00:00 75 mm[Hg] [facility] Heart rate 2020-04-18 01:00:00 69 /min [facility] Respiratory rate 2020-04-18 01:00:00 16 /min [facility] Oxygen saturation in 2020-04-18 01:00:00 97 /min [facility] Arterial blood by [facility] Pulse oximetry Branch Body temperature 2020-04-17 22:49:00 36.83 Manasa [facility] Body weight 2020-04-17 22:49:00 117.935 kg [facility] Systolic blood 2020-04-18 01:00:00 141 mm[Hg] [facility] Diastolic blood 2020-04-18 01:00:00 75 mm[Hg] Unive rsity of pressure [facility] Heart rate 2020-04-18 01:00:00 69 /min [facility] Respiratory rate 2020-04-18 01:00:00 16 /min [facility] Oxygen saturation in 2020-04-18 01:00:00 97 /min [facility] Arterial blood by [facility] Pulse oximetry Branch Body temperature 2020-04-17 22:49:00 36.83 Manasa [facility] Body weight 2020-04-17 22:49:00 117.935 kg [facility] Heart Rate 2019-12-08 21:00:00 [facility] Kenneth Respitory Rate 2019-12-08 21:00:00 Memori al Kenneth Systolic (mm Hg) 2019-12-08 21:00:00 Caden rial Kenneth Diastolic (mm Hg) 2019-12-08 21:00:00 Mem orial Kenneth Heart Rate 2019-12-08 16:54:00 [facility] Kenneth Respitory Rate 2019-12-08 16:54:00 Memori al [place] Systolic (mm Hg) 2019-12-08 16:54:00 Caden rial Kenneth Diastolic (mm Hg) 2019-12-08 16:54:00 Mem orial [place] Heart Rate 2019-12-08 13:00:00 [facility] Kenneth Respitory Rate 2019-12-08 13:00:00 Memori al Kenneth Systolic (mm Hg) 2019-12-08 13:00:00 Cdaen rial [place] Diastolic (mm Hg) 2019-12-08 13:00:00 Mem orial [place] Temperature Oral (F) 2019-12-08 01:00:00 99.1 F [facility] [place] Temperature Oral (F) 2019-12-07 23:50:00 98.4 F [facility] Kenneth Temperature Oral (F) 2019-12-07 22:40:00 98.2 F [facility] Kenneth Temperature Oral (F) 2019-12-07 04:58:00 97.9 F [facility] Kenneth Heart Rate 2019-12-07 04:58:00 Memorial Kenneth Respitory Rate 2019-12-07 04:58:00 Memori al [place] Systolic (mm Hg) 2019-12-07 04:58:00 Caden rial Kenneth Diastolic (mm Hg) 2019-12-07 04:58:00 Mem orial Kenneth Heart Rate 2019-12-07 00:46:00 [facility] Kenneth Respitory Rate 2019-12-07 00:46:00 Memori al Kenneth Systolic (mm Hg) 2019-12-07 00:46:00 Caden rial Kenneth Diastolic (mm Hg) 2019-12-07 00:46:00 Mem orial [place] Temperature Oral (F) 2019-12-07 00:46:00 98.4 F [facility] Kenneth Heart Rate 2019-12-06 21:00:00 [facility] Kenneth Respitory Rate 2019-12-06 21:00:00 Memori al [place] Systolic (mm Hg) 2019-12-06 21:00:00 Caden rial [place] Diastolic (mm Hg) 2019-12-06 21:00:00 Mem orial Kenneth Temperature Oral (F) 2019-12-06 19:00:00 97.5 F [facility] [place] Heart Rate 2019-11-30 04:50:00 [facility] [place] Respitory Rate 2019-11-30 04:50:00 Memori al Kenneth Systolic (mm Hg) 2019-11-30 04:50:00 Caden rial Kenneth Diastolic (mm Hg) 2019-11-30 04:50:00 Mem orial Kenneth Heart Rate 2019-11-30 01:00:00 [facility] [place] Respitory Rate 2019-11-30 01:00:00 Memori al [place] Systolic (mm Hg) 2019-11-30 01:00:00 Caden rial [place] Diastolic (mm Hg) 2019-11-30 01:00:00 Mem orial [place] Heart Rate 2019-11-29 22:41:00 [facility] [place] Systolic (mm Hg) 2019-11-29 22:41:00 Caden rial [place] Diastolic (mm Hg) 2019-11-29 22:41:00 Mem orial [place] Respitory Rate 2019-11-29 21:05:00 Memori al Kenneth Height 2019-11-29 08:57:00 185.42 cm [facility] [place] Weight 2019-11-29 08:57:00 [facility] Kenneth BMI Calculated 2019-11-29 08:57:00 Memori al [place] Height 2019-11-29 02:04:00 185.42 cm [facility] Kenneth BMI Calculated 2019-11-29 02:04:00 Memori al [place] Weight 2019-11-29 02:04:00 [facility] [place] Temperature Oral (F) 2019-11-29 02:04:00 98.2 F [facility] [place] Respitory Rate 2015-03-15 14:30:00 Memori al [place] Temperature Oral (F) 2015-03-15 14:30:00 98.0 F [facility] Kenneth Heart Rate 2015-03-15 14:30:00 [facility] [place] Systolic (mm Hg) 2015-03-15 14:30:00 Caden rial [place] Diastolic (mm Hg) 2015-03-15 14:30:00 Mem orial Kenneth Systolic (mm Hg) 2015-03-15 13:30:00 Caden rial [place] Diastolic (mm Hg) 2015-03-15 13:30:00 Mem orial Kenneth Respitory Rate 2015-03-15 13:30:00 Memori al [place] Respitory Rate 2015-03-15 12:30:00 Memori al [place] Temperature Oral (F) 2015-03-15 12:30:00 97.0 F [facility] [place] Systolic (mm Hg) 2015-03-15 12:30:00 Caden rial Kenneth Diastolic (mm Hg) 2015-03-15 12:30:00 Mem orial [place] Temperature Oral (F) 2015-03-15 10:32:00 97.4 F [facility] Kenneth Heart Rate 2015-03-15 04:52:00 [facility] Kenneth Height 2015-03-15 04:52:00 185.42 cm [facility] Kenneth Weight 2015-03-15 04:52:00 [facility] Kenneth BMI Calculated 2015-03-15 04:52:00 Memori al Kenneth Temperature Oral (F) 2012-12-23 09:57:00 98.5 F [facility] Kenneth Systolic (mm Hg) 2012-12-23 09:57:00 Caden rial [place] Respitory Rate 2012-12-23 09:57:00 Memori al [place] Heart Rate 2012-12-23 09:57:00 [facility] Kenneth Diastolic (mm Hg) 2012-12-23 09:57:00 Mem orial Kenneth Respitory Rate 2012-12-23 08:29:00 Memori al [place] Heart Rate 2012-12-23 08:29:00 [facility] Temperature Oral (F) 2012-12-23 08:29:00 97.9 F [facility] Kenneth Systolic (mm Hg) 2012-12-23 08:29:00 Caden Cooper Diastolic (mm Hg) 2012-12-23 08:29:00 Leanne Cooper Weight 2012-12-23 08:29:00 [facility] Kenneth Height 2012-12-23 08:29:00 185.42 cm [facility] Procedures Procedure Date / Time Performed Performing Clinician [facility] e CT ABDOMEN PELVIS W 2020-04-18 00:51:42 Alfredo Brand [facility] CONTRAST Medical Branch LIPASE 2020-04-17 23:58:00 Sunday [facility] COMP. METABOLIC PANEL 2020-04-17 23:58:00 Alfredo Brand [facility] ([id number]) [facility] Branch CBC WITH DIFF 2020-04-17 23:58:00 Brand [facility] URINALYSIS 2020-04-17 23:58:00 Sunday Alfredo [facility] Plan of Care Planned Activity Planned Date Details Comments Source Future Scheduled 2021-05-23 COVID-19 VACCINE (1) Met [facility] Hospital Test 13:49:23 [code = COVID-19 VACCINE (1)] Future Scheduled 2021-05-23 65+ [facility] 13:49:23 VACCINE (1 of 4 - PCV13) [code = 65+ PNEUMOCOCCAL VACCINE (1 of 4 - PCV13)] Future Scheduled 2021-05-23 Hepatitis C screening [facility] Hospital Test 13:49:23 (procedure) [code = 037562085] Future Scheduled 2021-05-23 COLONOSCOPY SCREENING [facility] Hospital Test 13:49:23 [code = COLONOSCOPY SCREENING] Future Scheduled 2021-05-23 SHINGLES [facility]INES (#[facility] 13:49:23 [code = SHINGLES VACCINES (#1)] Future Scheduled 2021-05-23 INFLUENZA VACCINE Method [facility] Hospital Test 13:49:23 [code = INFLUENZA VACCINE] Future Scheduled 2021-01-20 IMM Influenza Seasonal [facility] Test 00:00:00 Jan to June (>/= 19 yrs) [code = IMM Influenza Seasonal Jan to June (>/= 19 yrs)] Future Scheduled 2021-01-20 IMM Influenza Seasonal [facility] Test 00:00:00 Jan to June (>/= 19 yrs) [code = IMM Influenza Seasonal Oct to June (>/= 19 yrs)] Future Scheduled 2021-01-20 IMM Influenza Seasonal [facility] Test 00:00:00 Jan to June (>/= 19 yrs) [code = IMM Influenza Seasonal Jan to June (>/= 19 yrs)] Future Scheduled 2010 IMM Pneumococcal Age [facility] Test 00:00:00 65 and Up [code = IMM Pneumococcal Age 65 and Up] Future Scheduled 2010 Imm Pneumococcal 65+ [facility] Test 00:00:00 (1 of 1 - PPSV23) [code = Imm Pneumococcal 65+ (1 of 1 - PPSV23)] Future Scheduled 2010 Imm Pneumococcal 65+ [facility] Test 00:00:00 (1 of 1 - PPSV23) [code = Imm Pneumococcal 65+ (1 of 1 - PPSV23)] Future Scheduled 1957 COVID-19 Vaccine (1) [facility] Test 00:00:00 [code = COVID-19 Vaccine (1)] Future Scheduled 1950 COVID-19 Vaccine (1) [facility] Test 00:00:00 [code = COVID-19 Vaccine (1)] Future Scheduled 1950 COVID-19 Vaccine (1) [facility] Test 00:00:00 [code = COVID-19 Vaccine (1)] Encounters Start End Encounter Admission Attending Care Care Encounter Source Date/Time Date/Time Type Type Clinicians Facility Department ID 2020-04-17 2020-04-17 Emergency [facility] [id number] 16:56:00 20:05:00 Alfredo Jordan [id number] [place] [id number] [place] [id number] 2020-04-17 2020-04-17 Emergency [place] [id number] Univers 16:56:00 20:05:00 Alfredo Jordan [id number] i ty of [place] [id number] [facility] [id number] [address] 2020-04-17 2020-04-17 Emergency X [facility] ERT [id number] Univers 16:56:00 16:56:00 ity of [facility] 2019-11-29 2019-12-08 Inpatient Jeremy [facility] [id number] Memoria 01:58:40 22:45:00 r Kenneth 02 l [facility] 2019-11-29 2019-12-08 Inpatient E ONICAIH, [facility] [id number] [facility] 02:11:00 17:45:00 [facility] 2017-07-01 2017-07-01 Emergency [facility] [id number] M[place] 01:48:00 01:48:00 [facility] 2015-03-15 2015-03-15 EC [facility] [id number] Memoria 04:35:00 14:30:00 Emergency r [place] 01 l [facility] 2012-12-23 2012-12-23 [id number] Memoria 03:26:00 04:58:00 r [facility] 00 l [place] Results Test Test Test Results Result Source Description Time Comments Comments CT ABDOMEN 2020-03-22. ?Wall thickening of U niversity of PELVIS W 28 urinary bladder may [place] [facility] CONTRAST 01:42:14 represent cystitis. Branc h Correlatewith urinalysis. 2. ?Colonic diverticulosis without diverticulitis. 3. ?Mild hepatomegaly. 4. ?Supraumbilical hernia containing fat and mesenteric vessels. Preliminary Report Dictated by Resident: Radha Tabor ?MD. Laurita, have reviewed this study and agree with [...] APPEARANCE (test code = Hazy Clear A 0218163082) COLOR (test code = 7629991932) Yellow Yellow PH (test code = 7757774506) 4.8-8.0 SP GRAVITY (test code = 1.003-1.030 8267405221) GLU U QUAL (test code = Normal Normal 6304151570) BLOOD (test code = 9720739559) 1+ Negative A KETONES (test code = 2335361210) Negative Negative PROTEIN (test code = 2887-8) Negative Negative UROBILIN (test code = Normal Normal 0107468543) BILIRUBIN (test code = Negative Negative 3839333255) NITRITE (test code = 1334204518) Negative Negative LEUK JIMENA (test code = 500/uL Negative A 3627551179) RBC/HPF (test code = 0749650707) See_Comment H [Automated message] The system which ge nerated this result transmit casey reference range: 0 - 3 HP F. The reference range was not used to interpret th is result as normal/abnormal . WBC/HPF (test code = 3182439244) See_Comment H [Automated message] The system which ge nerated this result transmit casey reference range: 0 - 5 HP F. The reference range was not used to interpret th is result as normal/abnormal . BACTERIA (test code = Few Negative A 0999223720) MUCOUS (test code = 1603902223) Slight Negative LPF A SQ EPITH (test code = <1 HPF 4001215128) HYAL CAST (test code = See_Comment H [Aut omated message] The [id number]) system which ge nerated this result transmit casey reference range: <=2 LPF. The reference range was not u sed to interpret this result as normal/abnormal . Lab Interpretation (test code = Abnormal 75715-9) [facility] Metabolic [id number] 00:30:00 Test Item Value Reference Range Interpretation Comments NA (test code = 143 mmol/L 135-145 7629720046) K (test code = 4.4 mmol/L 3.5-5 5506445305) CL (test code = 106 mmol/L 98-108 6647469949) CO2 TOTAL (test code = 29 mmol/L 23-31 9952776506) AGAP (test code = 2-16 7056289486) BUN (test code = 17 mg/dL 7-23 5834805727) GLUCOSE (test code = 115 mg/dL 70-110 H 8351107716) CREATININE (test code = 1.30 mg/dL 0.6-1.25 H 5875991506) TOTAL BILI (test code = 0.8 mg/dL 0.1-1.8 7461348072) CALCIUM (test code = 9.7 mg/dL 8.6-10.6 8382304486) T PROTEIN (test code = 7.8 g/dL 6.3-8.2 0021884870) ALBUMIN (test code = 4.3 g/dL 3.5-5 7069201665) ALK PHOS (test code = 109 U/L 34-122 5007422212) ALTv (test code = 9 U/L 5-50 1742-6) AST(SGOT) (test code = 19 U/L 13-40 0591552279) eGFR Calculation mL/min/1.73m2 (Non-) (test code = 5318144673) eGFR Calculation mL/min/1.73m2 () (test code = 8689264057) HATTIE (test code = HATTIE) Association of [...] tests). Lab Interpretation Abnormal (test code = 21289-1) [facility] TylerLipase, [id number] 00:30:00 Test Item Value Reference Range Interpretation Comments LIPASE (test code = 5105344061) 43 U/L 0-220 Lab Interpretation (test code = Normal 65789-9) [facility] TylerCBC with Eqifhxdluuer0415-36-68 00:17:00 Test Item Value Reference Range Interpretation Comments WBC (test code = See_Comment [Automated 6690-2) message] The sy stem which generated this result transmitted reference range : 4.20 - 10.70 10*3/?L. The reference range was not used to interpret this result as normal/abnormal . RBC (test code = See_Comment H [Automated 789-8) message] The sy stem which generated this [...] (test code = 33.8 fL 38.5-51.6 L 26526-8) RDW-CV (test code = 15.9 % 12.1-15.4 H 788-0) PLT (test code = See_Comment L [Automated 777-3) message] The sy stem which generated this result transmitted reference range : 150 - 328 10*3/ ?L. The reference r yi was not used to interpret this result as normal/abnormal . MPV (test code = 10.3 fL 9.8-13 45246-8) NRBC/100 WBC (test See_Comment [Automat ed code = 9308672600) message] The system which generated this result transmitted reference range : 0.0 - 10.0 /100 WBCs. The refer ence range was not u sed to interpret th is result as normal/abnormal . NRBC x10^3 (test code <0.01 See_Comment [Auto mated = 0597324675) message] The s ystem which generated this result transmitted reference range : 10*3/?L. The reference range was not used to interpret this result as normal/abnormal . GRAN MAT (NEUT) % 68.0 % (test code = 770-8) IMM GRAN % (test code 0.40 % = 4040152347) LYMPH % (test code = 20.0 % 736-9) MONO % (test code = 8.9 % 5905-5) EOS % (test code = 2.1 % 713-8) BASO % (test code = 0.6 % 706-2) GRAN MAT x10^3(ANC) 3.29 10*3/uL 1.99-6.95 (test code = 6179555503) IMM GRAN x10^3 (test <0.03 0-0.06 code = 8223585960) LYMPH x10^3 (test code 0.97 10*3/uL 1.09-3.23 L = 731-0) MONO x10^3 (test code 0.43 10*3/uL 0.36-1.02 = 742-7) EOS x10^3 (test code = 0.10 10*3/uL 0.06-0.53 711-2) BASO x10^3 (test code 0.03 10*3/uL 0.01-0.09 = 704-7) Lab Interpretation Abnormal (test code = 13392-8) [facility] 18:37:00 Test Item Value Reference Range Interpretation Comments Coronavirus (COVID-19) Not Detected DYLAN (test code = *NA*(12/05/19 1:37 PM) Coronavirus (COVID-19) DYLAN) [facility]umdnwUSRHOITVWN7381-26-73 17:53:00 Test Item Value Reference Range Interpretation Comments Coronavirus (COVID-19) Not Detected DYLAN (test code = *NA*(12/04/19 12:53 Coronavirus (COVID-19) PM) DYLAN) [facility]2020-08-12 09:50:00 Test Item Value Reference Range Interpretation Comments CO2 (test code = CO2) 26 24-32 [place] [address]-08-12 09:50:00 Test Item Value Reference Range Interpretation Comments Calcium Lvl (test code = Calcium Lvl) 8.5 8.5-10.5 [place] [address]-08-12 09:50:00 Test Item Value Reference Range Interpretation Comments AGAP (test code = AGAP) 12.3 10.0-20.0 [place] [address]-08-12 09:50:00 Test Item Value Reference Range Interpretation Comments eGFR (test code = eGFR) 52 [place] [address]-08-12 09:50:00 Test Item Value Reference Range Interpretation Comments Segs (test code = Segs) 47.5 45.0-75.0 [place] [address]-08-12 09:50:00 Test Item Value Reference Range Interpretation Comments Lymphocytes (test code = Lymphocytes) 35.6 20.0-40.0 [place] [address]-08-12 09:50:00 Test Item Value Reference Range Interpretation Comments Monocytes (test code = Monocytes) 13.0 2.0-12.0 [place] [address]-08-12 09:50:00 Test Item Value Reference Range Interpretation Comments Eosinophils (test code = 2.9 See_Comment [A utomated message] The Eosinophils) system which ge nerated this result tra nsmitted reference range : <=4.0. The reference r yi was not used to int erpret this result as normal/abnormal . [place] 123280-08-12 09:50:00 Test Item Value Reference Range Interpretation Comments Basophils (test code = 1.0 See_Comment [Aut omated message] The Basophils) system which ge nerated this result tra nsmitted reference range : <=1.0. The reference r yi was not used to int erpret this result as normal/abnormal . [place] [address]-08-12 09:50:00 Test Item Value Reference Range Interpretation Comments Neutrophils # (test code = Neutrophils 3.1 1.5-8.1 #) [place] [address]-08-12 09:50:00 Test Item Value Reference Range Interpretation Comments Lymphocytes # (test code = Lymphocytes 2.4 1.0-5.5 #) [facility] HospitalDejsnsxUDFQIYIZAA0727-08-54 09:50:00 Test Item Value Reference Range Interpretation Comments Monocytes # (test code 0.9 See_Comment [Aut omated message] The = Monocytes #) system which generated this result tra nsmitted reference range : <=0.8. The reference r yi was not used to int erpret this result as normal/abnormal . [facility] HospitalOuobcuhXICFOLIDNA3636-80-46 09:50:00 Test Item Value Reference Range Interpretation Comments Eosinophils # (test code 0.2 See_Comment [A utomated message] The = Eosinophils #) system whic h generated this result tra nsmitted reference range : <=0.5. The reference r yi was not used to int erpret this result as normal/abnormal . [facility] HospitalVudqzmjBXQREVHJAT1677-05-52 09:50:00 Test Item Value Reference Range Interpretation Comments Basophils # (test code 0.1 See_Comment [Aut omated message] The = Basophils #) system which generated this result tra nsmitted reference range : <=0.2. The reference r yi was not used to int erpret this result as normal/abnormal . [facility] HospitalPhudsvySOULRCDVGT6802-62-06 09:50:00 Test Item Value Reference Range Interpretation Comments Microcyte (test code = 3+ *NA*(12/02/19 4:50 Microcyte) AM) [facility] HospitalZvyuaiiUEPMHFHZPA3145-35-51 09:50:00 Test Item Value Reference Range Interpretation Comments Hypochrom (test code = 1+ (12/02/19 4:50 AM) Hypochrom) [facility] HospitalZtkyhcrAMJAJUGSPJ6126-94-99 09:50:00 Test Item Value Reference Range Interpretation Comments Target Cell (test code Moderate *ABN*(12/02/19 = Target Cell) 4:50 AM) [facility] HospitalFzxjskgKINISGAWHM6581-34-40 09:50:00 Test Item Value Reference Range Interpretation Comments Large Plt (test code Moderate *ABN*(12/02/19 = Large Plt) 4:50 AM) [facility] HospitalWphmkkaZKUWKVJNQJ4918-91-85 09:50:00 Test Item Value Reference Range Interpretation Comments WBC (test code = WBC) 6.6 3.7-10.4 [place] [address]-08-12 09:50:00 Test Item Value Reference Range Interpretation Comments RBC (test code = RBC) 5.85 4.70-6.10 [place] [address]-08-12 09:50:00 Test Item Value Reference Range Interpretation Comments Hgb (test code = Hgb) 11.4 14.0-18.0 [place] [address]-08-12 09:50:00 Test Item Value Reference Range Interpretation Comments Hct (test code = Hct) 36.3 42.0-54.0 [place] [address]-08-12 09:50:00 Test Item Value Reference Range Interpretation Comments MCV (test code = MCV) 62.0 80.0-94.0 [place] [address]-08-12 09:50:00 Test Item Value Reference Range Interpretation Comments MCH (test code = MCH) 19.5 pg 27.0-31.0 [place] [address]-08-12 09:50:00 Test Item Value Reference Range Interpretation Comments MCHC (test code = MCHC) 31.4 32.0-36.0 [place] [address]-08-12 09:50:00 Test Item Value Reference Range Interpretation Comments RDW (test code = RDW) 16.3 11.5-14.5 [place] [address]-08-12 09:50:00 Test Item Value Reference Range Interpretation Comments Platelet (test code = Platelet) 171 133-450 [place] [address]-08-12 09:50:00 Test Item Value Reference Range Interpretation Comments MPV (test code = MPV) 9.0 7.4-10.4 [facility]2020-08-12 09:50:00 Test Item Value Reference Range Interpretation Comments Glucose Lvl (test code = Glucose Lvl) 85 70-99 [place] 059460-08-12 09:50:00 Test Item Value Reference Range Interpretation Comments BUN (test code = BUN) 18 7-22 [place] 059460-08-12 09:50:00 Test Item Value Reference Range Interpretation Comments Creatinine Lvl (test code = Creatinine 1.50 0.50-1.40 Lvl) [facility]2020-08-12 09:50:00 Test Item Value Reference Range Interpretation Comments Sodium Lvl (test code = Sodium Lvl) 146 135-145 [facility]2020-08-12 09:50:00 Test Item Value Reference Range Interpretation Comments Potassium Lvl (test code = Potassium 4.3 3.5-5.1 Lvl) [facility]2020-08-12 09:50:00 Test Item Value Reference Range Interpretation Comments Chloride Lvl (test code = Chloride Lvl) 112 95-109 [facility]2020-08-10 11:25:00 Test Item Value Reference Range Interpretation Comments Glucose Lvl (test code = Glucose Lvl) 90 70-99 [facility]2020-08-10 11:25:00 Test Item Value Reference Range Interpretation Comments BUN (test code = BUN) 25 7-22 [facility]2020-08-10 11:25:00 Test Item Value Reference Range Interpretation Comments Creatinine Lvl (test code = Creatinine 1.80 0.50-1.40 Lvl) [facility]2020-08-10 11:25:00 Test Item Value Reference Range Interpretation Comments Sodium Lvl (test code = Sodium Lvl) 145 135-145 [facility]2020-08-10 11:25:00 Test Item Value Reference Range Interpretation Comments Potassium Lvl (test code = Potassium 4.5 3.5-5.1 Lvl) [facility]2020-08-10 11:25:00 Test Item Value Reference Range Interpretation Comments Chloride Lvl (test code = Chloride Lvl) 113 95-109 [facility]2020-08-10 11:25:00 Test Item Value Reference Range Interpretation Comments CO2 (test code = CO2) 24 24-32 [facility]2020-08-10 11:25:00 Test Item Value Reference Range Interpretation Comments Calcium Lvl (test code = Calcium Lvl) 8.7 8.5-10.5 [facility]2020-08-10 11:25:00 Test Item Value Reference Range Interpretation Comments AGAP (test code = AGAP) 12.5 10.0-20.0 [facility]2020-08-10 11:25:00 Test Item Value Reference Range Interpretation Comments eGFR (test code = eGFR) 42 [facility]KqkhtdwLXEJEEFRTD3612-15-39 20:16:00 Test Item Value Reference Range Interpretation Comments Coronavirus (COVID-19) Detected DYLAN (test code = 5*ABN*(11/29/19 3:16 Coronavirus (COVID-19) PM) DYLAN) [facility]2020-08-09 15:19:00 Test Item Value Reference Range Interpretation Comments Iron (test code = Iron) 73 50-180 [facility]2020-08-09 15:19:00 Test Item Value Reference Range Interpretation Comments TIBC (test code = TIBC) 216 250-425 [facility]2020-08-09 15:19:00 Test Item Value Reference Range Interpretation Comments % Satur Fe (test code = % Satur Fe) 34 20-48 [facility] AND [id number] 14:58:00 Test Item Value Reference Range Interpretation Comments UA Turbidity (test code Slight *ABN*(11/29/19 = UA Turbidity) 9:58 AM) [facility] AND [id number] 14:58:00 Test Item Value Reference Range Interpretation Comments UA Spec Grav (test code = UA Spec 1.015 1 Grav) [facility] AND [id number] 14:58:00 Test Item Value Reference Range Interpretation Comments UA pH (test code = UA pH) 5.0 1 5.0-8.0 [facility] AND [id number] 14:58:00 Test Item Value Reference Range Interpretation Comments UA Protein (test code = UA Negative mg/dL Protein) [facility] AND [id number] 14:58:00 Test Item Value Reference Range Interpretation Comments UA Glucose (test code = UA Negative mg/dL Glucose) [facility] AND [id number] 14:58:00 Test Item Value Reference Range Interpretation Comments UA Ketones (test code = UA Negative mg/dL Ketones) [facility] AND [id number] 14:58:00 Test Item Value Reference Range Interpretation Comments UA Bili (test code = Negative *NA*(11/29/19 UA Bili) 9:58 AM) [facility] AND [id number] 14:58:00 Test Item Value Reference Range Interpretation Comments UA Blood (test code = Small *ABN*(11/29/19 UA Blood) 9:58 AM) [facility] AND [id number] 14:58:00 Test Item Value Reference Range Interpretation Comments UA Nitrite (test code Negative (11/29/19 9:58 = UA Nitrite) AM) [facility] [id number] 14:58:00 Test Item Value Reference Range Interpretation Comments UA Leuk Est (test Negative (11/29/19 9:58 code = UA Leuk Est) AM) [facility] [id number] 14:58:00 Test Item Value Reference Range Interpretation Comments UA Sq Epi (test code = UA Sq Occasional /LPF Epi) [facility] [id number] 14:58:00 Test Item Value Reference Range Interpretation Comments UA RBC (test code = 2 See_Comment [Automa casey message] The UA RBC) system which ge nerated this result transmit casey reference range : <=2. The reference range was not used to interpr et this result as thom l/abnormal. [facility] [id number] 14:58:00 Test Item Value Reference Range Interpretation Comments UA Mucus (test code = UA Mucus) Few /LPF [facility] [id number] 14:58:00 Test Item Value Reference Range Interpretation Comments UA Hyal Cast (test 9 See_Comment [Automat ed message] The code = UA Hyal Cast) system which generated this result transmit casey reference range : <=2. The reference range was not used to interpr et this result as thom l/abnormal. [facility] [id number] 14:58:00 Test Item Value Reference Range Interpretation Comments UA Color (test code = UA Color) [facility] [id number] 14:58:00 Test Item Value Reference Range Interpretation Comments UA Urobilinogen (test code = UA no gt 0.1-1.0 Urobilinogen) [facility] HYNWNBH0494-18-64 13:13:00 Test Item Value Reference Range Interpretation Comments Troponin-I (test code 0.04 See_Comment [Auto mated message] The = Troponin-I) system which g enerated this result transmit casey reference range : <=0.40. The reference r yi was not used to interpr et this result as thom l/abnormal. [facility] [id number] 09:43:00 Test Item Value Reference Range Interpretation Comments Troponin-I (test code 0.04 See_Comment [Auto mated message] The = Troponin-I) system which g enerated this result transmit casey reference range : <=0.40. The reference r yi was not used to interpr et this result as thom l/abnormal. [facility] [employer] SUISW3722-05-06 09:43:00 Test Item Value Reference Range Interpretation Comments Glucose Lvl (test code = Glucose Lvl) 99 70-99 [facility] LGXUC0411-59-49 09:43:00 Test Item Value Reference Range Interpretation Comments BUN (test code = BUN) 29 7-22 [facility] [id number] 09:43:00 Test Item Value Reference Range Interpretation Comments Creatinine Lvl (test code = Creatinine 2.90 0.50-1.40 Lvl) [facility] KEVIJ1489-99-00 09:43:00 Test Item Value Reference Range Interpretation Comments Sodium Lvl (test code = Sodium Lvl) 141 135-145 [facility] [id number] 09:43:00 Test Item Value Reference Range Interpretation Comments Potassium Lvl (test code = Potassium 4.5 3.5-5.1 Lvl) [facility] [id number] 09:43:00 Test Item Value Reference Range Interpretation Comments Chloride Lvl (test code = Chloride Lvl) 107 95-109 [facility] [id number] 09:43:00 Test Item Value Reference Range Interpretation Comments CO2 (test code = CO2) 26 24-32 [facility] [id number] 09:43:00 Test Item Value Reference Range Interpretation Comments Calcium Lvl (test code = Calcium Lvl) 9.4 8.5-10.5 [facility] [id number] 09:43:00 Test Item Value Reference Range Interpretation Comments Total Protein (test code = Total 8.0 6.4-8.4 Protein) [facility] [id number] 09:43:00 Test Item Value Reference Range Interpretation Comments Albumin Lvl (test code = Albumin Lvl) 3.5 3.5-5.0 [facility] [id number] 09:43:00 Test Item Value Reference Range Interpretation Comments ALT (test code = ALT) 34 See_Comment [Auto mated message] The system which ge nerated this result transmit casey reference range : <=65. The reference range was not used to interpr et this result as thom l/abnormal. [facility]2020-08-09 09:43:00 Test Item Value Reference Range Interpretation Comments AST (test code = AST) 20 See_Comment [Auto mated message] The system which ge nerated this result transmit casey reference range : <=37. The reference range was not used to interpr et this result as thom l/abnormal. [facility]2020-08-09 09:43:00 Test Item Value Reference Range Interpretation Comments Alk Phos (test code = Alk Phos) 84 39-136 [facility]2020-08-09 09:43:00 Test Item Value Reference Range Interpretation Comments Bili Total (test code = Bili Total) 0.7 0.2-1.3 [facility]2020-08-09 09:43:00 Test Item Value Reference Range Interpretation Comments AGAP (test code = AGAP) 12.5 10.0-20.0 [facility]2020-08-09 09:43:00 Test Item Value Reference Range Interpretation Comments B/C Ratio (test code = B/C Ratio) 10 1 6-25 [facility]2020-08-09 09:43:00 Test Item Value Reference Range Interpretation Comments Globulin (test code = Globulin) 4.5 2.7-4.2 [facility]2020-08-09 09:43:00 Test Item Value Reference Range Interpretation Comments A/G Ratio (test code = A/G Ratio) 0.8 1 0.7-1.6 [facility]2020-08-09 09:43:00 Test Item Value Reference Range Interpretation Comments eGFR (test code = eGFR) 24 [facility]2020-08-09 09:43:00 Test Item Value Reference Range Interpretation Comments Magnesium Lvl (test code = Magnesium 2.1 1.8-2.4 Lvl) [facility] [employer]2020-08-09 09:43:00 Test Item Value Reference Range Interpretation Comments Phosphorus (test code = Phosphorus) 4.3 2.5-4.5 [place] 059460-08-09 09:43:00 Test Item Value Reference Range Interpretation Comments Procalcitonin Lvl (test 0.28 See_Comment [Au tomated message] code = Procalcitonin Lvl) e system which generated this result transmitted ref erence range: <=0.10. The reference range was not used to interpr et this result as normal/abnormal . [place] 059460-08-09 09:43:00 Test Item Value Reference Range Interpretation Comments Lactic Acid Lvl (test code = Lactic 1.5 0.5-2.2 Acid Lvl) [facility] HospitalTlzkoloQXUEXGTHGX0592-08-89 09:43:00 Test Item Value Reference Range Interpretation Comments Neutrophils # (test code = Neutrophils 8.0 1.5-8.1 #) [facility] HospitalHljusgfXWXZFDGFGS7994-80-19 09:43:00 Test Item Value Reference Range Interpretation Comments Lymphocytes # (test code = Lymphocytes 1.4 1.0-5.5 #) [facility] HospitalMukawnkBQPVLFCITK1069-09-16 09:43:00 Test Item Value Reference Range Interpretation Comments Monocytes # (test code 0.8 See_Comment [Aut omated message] The = Monocytes #) system which generated this result tra nsmitted reference range : <=0.8. The reference r yi was not used to int erpret this result as normal/abnormal . [facility] HospitalLfprirlOMCYYUJDCP0315-84-89 09:43:00 Test Item Value Reference Range Interpretation Comments Eosinophils # (test code 0.3 See_Comment [A utomated message] The = Eosinophils #) system [facility] generated this result tra nsmitted reference range : <=0.5. The reference r yi was not used to int erpret this result as normal/abnormal . [facility] HospitalBuqjazhCFXVYTKPIZ7644-98-64 09:43:00 Test Item Value Reference Range Interpretation Comments Segs (test code = Segs) 76.0 45.0-75.0 [place] [address]-08-09 09:43:00 Test Item Value Reference Range Interpretation Comments Bands (test code = 0.0 See_Comment [Automat ed message] The Bands) system which ge nerated this result transmit casey reference range : <=11.0. The reference r iy was not used to interpr et this result as thom l/abnormal. [facility] HospitalAmvdkmlBRNOEFHTSJ6432-84-00 09:43:00 Test Item Value Reference Range Interpretation Comments Lymphocytes (test code = Lymphocytes) 12.0 20.0-40.0 [facility] HospitalVjkimebAJATNZKRLI4481-08-79 09:43:00 Test Item Value Reference Range Interpretation Comments Monocytes (test code = Monocytes) 8.0 2.0-12.0 [facility] HospitalCtikctkKKIJBURQCN8317-85-51 09:43:00 Test Item Value Reference Range Interpretation Comments Eosinophils (test code = 3.0 See_Comment [A utomated message] The Eosinophils) system which ge nerated this result tra nsmitted reference range : <=4.0. The reference r yi was not used to int erpret this result as normal/abnormal . [facility] HospitalIjzvupdYDHSQPPJYD3126-70-17 09:43:00 Test Item Value Reference Range Interpretation Comments Atypical Lymphs (test code = Atypical 1.0 Lymphs) [facility] HospitalQwfoiugMAUUEPPCZG6274-19-12 09:43:00 Test Item Value Reference Range Interpretation Comments Plt Morph (test code = Normal (11/29/19 4:43 AM) Plt Morph) [facility] HospitalYwmmjcyHLQNGMPVUC9128-58-48 09:43:00 Test Item Value Reference Range Interpretation Comments Microcyte (test code = 3+ *ABN*(11/29/19 4:43 Microcyte) AM) [facility] HospitalCbxhrmmFIZYWHIRTJ0456-76-63 09:43:00 Test Item Value Reference Range Interpretation Comments Hypochrom (test code = 1+ (11/29/19 4:43 AM) Hypochrom) [facility] HospitalEnqezbzMWCDQKKDEA9435-92-88 09:43:00 Test Item Value Reference Range Interpretation Comments Polychrom (test code = Moderate *ABN*(11/29/19 Polychrom) 4:43 AM) [facility] HospitalKqdxbliIBLJKPIVOL3483-25-18 09:43:00 Test Item Value Reference Range Interpretation Comments Target Cell (test code Moderate *ABN*(11/29/19 = Target Cell) 4:43 AM) [facility] HospitalBusqzchAIXXYJPORI7685-73-66 09:43:00 Test Item Value Reference Range Interpretation Comments Elliptocyte (test code = Slight *ABN*(11/29/19 Elliptocyte) 4:43 AM) [facility] HospitalQiqramwHHNNKOHCVW3805-78-20 09:43:00 Test Item Value Reference Range Interpretation Comments WBC (test code = WBC) 10.5 3.7-10.4 [facility]gunfoWZYKZZFPOF4372-75-79 09:43:00 Test Item Value Reference Range Interpretation Comments RBC (test code = RBC) 6.37 4.70-6.10 [facility] [facility]RLVAWGHI0995[facility]97-45 09:43:00 Test Item Value Reference Range Interpretation Comments Hgb (test code = Hgb) 12.2 14.0-18.0 [facility] JacksonFjmyjelMJIQXWIZYF8362-62-96 09:43:00 Test Item Value Reference Range Interpretation Comments Hct (test code = Hct) 39.4 42.0-54.0 [facility] JacksonCejhghnKUIZSJHQRL8930-79-52 09:43:00 Test Item Value Reference Range Interpretation Comments MCV (test code = MCV) 61.8 80.0-94.0 [facility] JacksonOjfipdiIGCSDMMGUA0744-66-36 09:43:00 Test Item Value Reference Range Interpretation Comments MCH (test code = MCH) 19.2 pg 27.0-31.0 [facility]ZfogcbkFMGXJCODOA7180-94-40 09:43:00 Test Item Value Reference Range Interpretation Comments MCHC (test code = MCHC) 31.0 32.0-36.0 [facility] JacksonMxgixafVGQDKXIFGS4974-94-25 09:43:00 Test Item Value Reference Range Interpretation Comments RDW (test code = RDW) 16.4 11.5-14.5 [facility] JacksonMztiqplNNRGYAMQJU6396-93-08 09:43:00 Test Item Value Reference Range Interpretation Comments Platelet (test code = Platelet) 244 133-450 [facility] PasoLzasmprTHJYIPKUIT0304-89-61 09:43:00 Test Item Value Reference Range Interpretation Comments MPV (test code = MPV) 9.9 7.4-10.4 [facility] PasoKakmylcBCBSVTXICI8709-80-03 05:59:00 Test Item Value Reference Range Interpretation Comments Coronavirus (COVID-19) Not Detected (11/29/19 DYLAN (test code = 12:59 AM) Coronavirus (COVID-19) DYLAN) [facility] [id number] 02:39:00 Test Item Value Reference Range Interpretation Comments Total CK (test code = Total CK) 130 12-191 [facility] [id number] 02:39:00 Test Item Value Reference Range Interpretation Comments Troponin-I (test code 0.04 See_Comment [Auto mated message] The = Troponin-I) system which g enerated this result transmit casey reference range : <=0.40. The reference r yi was not used to interpr et this result as thom l/abnormal. [facility] [employer] [id number] 02:39:00 Test Item Value Reference Range Interpretation Comments BNP (test code = BNP) 198 [facility] [employer] [id number] 02:39:00 Test Item Value Reference Range Interpretation Comments Total Protein (test code = Total 8.5 6.4-8.4 Protein) [facility] [employer] [id number] 02:39:00 Test Item Value Reference Range Interpretation Comments Albumin Lvl (test code = Albumin Lvl) 3.6 3.5-5.0 [facility] [employer] [id number] 02:39:00 Test Item Value Reference Range Interpretation Comments ALT (test code = ALT) 33 See_Comment [Auto mated message] The system which ge nerated this result transmit casey reference range : <=65. The reference range was not used to interpr et this result as thom l/abnormal. [facility] [employer] [id number] 02:39:00 Test Item Value Reference Range Interpretation Comments AST (test code = AST) 24 See_Comment [Auto mated message] The system which ge nerated this result transmit casey reference range : <=37. The reference range was not used to interpr et this result as thom l/abnormal. [employer] [id number] 02:39:00 Test Item Value Reference Range Interpretation Comments Alk Phos (test code = Alk Phos) 81 39-136 [facility] [employer] [id number] 02:39:00 Test Item Value Reference Range Interpretation Comments Bili Total (test code = Bili Total) 0.7 0.2-1.3 [facility] [employer] [id number] 02:39:00 Test Item Value Reference Range Interpretation Comments Bili Direct (test code 0.2 See_Comment [Aut omated message] The = Bili Direct) system which generated this result tra nsmitted reference range : <=0.3. The reference r yi was not used to int erpret this result as thom l/abnormal. [facility]2020-08-09 02:39:00 Test Item Value Reference Range Interpretation Comments Bili Indirect (test 0.5 See_Comment [Automa casey message] The code = Bili Indirect) system which generated this result tra nsmitted reference range : <=1.0. The reference r yi was not used to int erpret this result as normal/abnormal . [facility]2020-08-09 02:39:00 Test Item Value Reference Range Interpretation Comments Globulin (test code = Globulin) 4.9 2.7-4.2 [facility]2020-08-09 02:39:00 Test Item Value Reference Range Interpretation Comments A/G Ratio (test code = A/G Ratio) 0.7 1 0.7-1.6 [place] [address]-08-09 02:39:00 Test Item Value Reference Range Interpretation Comments Magnesium Lvl (test code = Magnesium 2.4 1.8-2.4 Lvl) [facility]2020-08-09 02:39:00 Test Item Value Reference Range Interpretation Comments Glucose Lvl (test code = Glucose Lvl) 97 70-99 [facility] [id number] 02:39:00 Test Item Value Reference Range Interpretation Comments BUN (test code = BUN) 26 7-22 [facility]2020-08-09 02:39:00 Test Item Value Reference Range Interpretation Comments Creatinine Lvl (test code = Creatinine 3.40 0.50-1.40 Lvl) [facility]2020-08-09 02:39:00 Test Item Value Reference Range Interpretation Comments Sodium Lvl (test code = Sodium Lvl) 145 135-145 [facility] [id number] 02:39:00 Test Item Value Reference Range Interpretation Comments Potassium Lvl (test code = Potassium 4.0 3.5-5.1 Lvl) [facility]2020-08-09 02:39:00 Test Item Value Reference Range Interpretation Comments Chloride Lvl (test code = Chloride Lvl) 111 95-109 [place] [id number] 02:39:00 Test Item Value Reference Range Interpretation Comments CO2 (test code = CO2) 26 24-32 [facility] [id number] 02:39:00 Test Item Value Reference Range Interpretation Comments Calcium Lvl (test code = Calcium Lvl) 10.4 8.5-10.5 [facility] [id number] 02:39:00 Test Item Value Reference Range Interpretation Comments AGAP (test code = AGAP) 12.0 10.0-20.0 [facility] [id number] 02:39:00 Test Item Value Reference Range Interpretation Comments eGFR (test code = eGFR) 19 [facility] HospitalLlxtjfvPGIIDUNAYO7153-47-76 02:39:00 Test Item Value Reference Range Interpretation Comments WBC (test code = WBC) 10.5 3.7-10.4 [facility] HospitalOavtebuITGKQHAPTN0987-33-47 02:39:00 Test Item Value Reference Range Interpretation Comments RBC (test code = RBC) 6.24 4.70-6.10 [facility] HospitalPbbpgpbWIRLAOMVYY3419-27-67 02:39:00 Test Item Value Reference Range Interpretation Comments Hgb (test code = Hgb) 12.1 14.0-18.0 [facility] HospitalKkwakszXGIEQFDVMA5368-30-55 02:39:00 Test Item Value Reference Range Interpretation Comments Hct (test code = Hct) 39.8 42.0-54.0 [facility] HospitalUuhotnzDYBECUFFWY5193-06-23 02:39:00 Test Item Value Reference Range Interpretation Comments MCV (test code = MCV) 63.8 80.0-94.0 [facility] HospitalFutbqgbVEWVVGMNEK9631-99-52 02:39:00 Test Item Value Reference Range Interpretation Comments MCH (test code = MCH) 19.3 pg 27.0-31.0 [facility] HospitalUzhhptyDVSVYCTJLN7052-55-65 02:39:00 Test Item Value Reference Range Interpretation Comments MCHC (test code = MCHC) 30.3 32.0-36.0 [facility] HospitalChsvulyRTITHCJNSM3957-98-47 02:39:00 Test Item Value Reference Range Interpretation Comments RDW (test code = RDW) 16.5 11.5-14.5 [facility] HospitalGexmrxvLLHXKAHAKY6195-99-42 02:39:00 Test Item Value Reference Range Interpretation Comments Platelet (test code = Platelet) 253 133-450 [facility] HospitalCsaucshYKIZIKZEZN1782-41-45 02:39:00 Test Item Value Reference Range Interpretation Comments MPV (test code = MPV) 9.4 7.4-10.4 [facility] HospitalBmomekpAOFOZMJWJJ6686-67-52 02:39:00 Test Item Value Reference Range Interpretation Comments PT (test code = PT) 14.3 s 12.0-14.7 [facility] HospitalYqftsuzDNKNGVRRLY1345-02-68 02:39:00 Test Item Value Reference Range Interpretation Comments INR (test code = INR) 1.11 1 0.85-1.17 [facility] HospitalKzjhhtzPQLVQMZVAS8875-36-72 02:39:00 Test Item Value Reference Range Interpretation Comments PTT (test code = PTT) 28.6 s 22.9-35.8 [facility] HospitalNbrkodwNWQYVKEOFA2168-21-99 02:39:00 Test Item Value Reference Range Interpretation Comments Neutrophils # (test code = Neutrophils 8.4 1.5-8.1 #) [facility] HospitalEmynwdgYMDIRUYVZZ2917-32-46 02:39:00 Test Item Value Reference Range Interpretation Comments Lymphocytes # (test code = Lymphocytes 1.3 1.0-5.5 #) [facility] HospitalPehzaggDIJSJWKYCX6644-44-98 02:39:00 Test Item Value Reference Range Interpretation Comments Monocytes # (test code 0.7 See_Comment [Aut omated message] The = Monocytes #) system which generated this result tra nsmitted reference range : <=0.8. The reference r yi was not used to int erpret this result as normal/abnormal . [facility] HospitalWtispydTWAJWMLJZO5635-50-84 02:39:00 Test Item Value Reference Range Interpretation Comments Basophils # (test code 0.1 See_Comment [Aut omated message] The = Basophils #) system which generated this result tra nsmitted reference range : <=0.2. The reference r yi was not used to int erpret this result as normal/abnormal . [facility] HospitalUdocdhdTWOSVCPSVX1461-93-88 02:39:00 Test Item Value Reference Range Interpretation Comments Segs (test code = Segs) 77.0 45.0-75.0 [facility] HospitalWgxetjxKQKCHTSGTH0373-45-03 02:39:00 Test Item Value Reference Range Interpretation Comments Bands (test code = 3.0 See_Comment [Automat ed message] The Bands) system which ge nerated this result transmit casey reference range : <=11.0. The reference r yi was not used to interpr et this result as thom l/abnormal. [facility] HospitalFmksgveJVIBGPNZCA6612-01-77 02:39:00 Test Item Value Reference Range Interpretation Comments Lymphocytes (test code = Lymphocytes) 12.0 20.0-40.0 [facility] HospitalPrqawotWSJYYFDPGU2506-35-75 02:39:00 Test Item Value Reference Range Interpretation Comments Monocytes (test code = Monocytes) 7.0 2.0-12.0 [facility] HospitalFfulmtlQJGRWWKBCA9038-01-35 02:39:00 Test Item Value Reference Range Interpretation Comments Basophils (test code = 1.0 See_Comment [Aut omated message] The Basophils) system which ge nerated this result tra nsmitted reference range : <=1.0. The reference r yi was not used to int erpret this result as normal/abnormal . [facility] HospitalWdtcrtbPPVXSONPXO0006-92-31 02:39:00 Test Item Value Reference Range Interpretation Comments Atypical Lymphs (test code = Atypical 0.0 Lymphs) [facility] HospitalWnjaszyJSPVILKDCR3356-12-18 02:39:00 Test Item Value Reference Range Interpretation Comments Anisocyte (test code = 1+ *ABN*(11/28/19 9:39 Anisocyte) PM) [facility] HospitalShjxrqgBIONLDGLQF8409-64-92 02:39:00 Test Item Value Reference Range Interpretation Comments Microcyte (test code = 2+ *ABN*(11/28/19 9:39 Microcyte) PM) [facility] HospitalPnznkrgGGPERPEEVQ4480-71-99 02:39:00 Test Item Value Reference Range Interpretation Comments Hypochrom (test code = 1+ (11/28/19 9:39 PM) Hypochrom) [facility] HospitalOyeusfgKKGOZZFVUE3057-91-95 02:39:00 Test Item Value Reference Range Interpretation Comments Polychrom (test code = Moderate *ABN*(11/28/19 Polychrom) 9:39 PM) [facility] HospitalVilgfxvZJZAKWUMXS8075-38-53 02:39:00 Test Item Value Reference Range Interpretation Comments Target Cell (test code Moderate *ABN*(11/28/19 = Target Cell) 9:39 PM) [facility] HospitalNlunjmlEEGWKBERTE3559-21-83 02:39:00 Test Item Value Reference Range Interpretation Comments Large Plt (test code Moderate *ABN*(11/28/19 = Large Plt) 9:39 PM) [facility]2015-11-24 12:32:00 Test Item Value Reference Range Interpretation Comments Calcium Lvl (test code = Calcium Lvl) 8.5 8.5-10.5 [facility]2015-11-24 12:32:00 Test Item Value Reference Range Interpretation Comments eGFR (test code = eGFR) 56 [facility]2015-11-24 12:32:00 Test Item Value Reference Range Interpretation Comments CO2 (test code = CO2) 27 - [facility]2015-11-24 12:32:00 Test Item Value Reference Range Interpretation Comments AGAP (test code = AGAP) 9.8 10.0-20.0 [facility]2015-11-24 12:32:00 Test Item Value Reference Range Interpretation Comments Sodium Lvl (test code = Sodium Lvl) 142 135-145 [facility]2015-11-24 12:32:00 Test Item Value Reference Range Interpretation Comments Potassium Lvl (test code = Potassium 3.8 3.5-5.1 Lvl) [facility]2015-11-24 12:32:00 Test Item Value Reference Range Interpretation Comments Chloride Lvl (test code = Chloride Lvl) 109 95-109 [facility]2015-11-24 12:32:00 Test Item Value Reference Range Interpretation Comments Glucose Lvl (test code = Glucose Lvl) 102 70-99 [facility]2015-11-24 12:32:00 Test Item Value Reference Range Interpretation Comments BUN (test code = BUN) 18 7-22 [facility]2015-11-24 12:32:00 Test Item Value Reference Range Interpretation Comments Creatinine Lvl (test code = Creatinine 1.45 0.50-1.40 Lvl) [facility]2015-11-24 09:17:00 Test Item Value Reference Range Interpretation Comments eGFR (test code = eGFR) 52 [facility]2015-11-24 09:17:00 Test Item Value Reference Range Interpretation Comments Sodium Lvl (test code = Sodium Lvl) 139 135-145 [facility]2015-11-24 09:17:00 Test Item Value Reference Range Interpretation Comments Chloride Lvl (test code = Chloride Lvl) 104 95-109 [facility]2015-11-24 09:17:00 Test Item Value Reference Range Interpretation Comments CO2 (test code = CO2) 25 24-32 [facility]2015-11-24 09:17:00 Test Item Value Reference Range Interpretation Comments Calcium Lvl (test code = Calcium Lvl) 9.0 8.5-10.5 [place] 629545-11-24 09:17:00 Test Item Value Reference Range Interpretation Comments Potassium Lvl (test code = Potassium 5.7 3.5-5.1 Lvl) [facility]2015-11-24 09:17:00 Test Item Value Reference Range Interpretation Comments Glucose Lvl (test code = Glucose Lvl) 103 70-99 [facility]2015-11-24 09:17:00 Test Item Value Reference Range Interpretation Comments BUN (test code = BUN) 21 7-22 [facility]2015-11-24 09:17:00 Test Item Value Reference Range Interpretation Comments Creatinine Lvl (test code = Creatinine 1.55 0.50-1.40 Lvl) [facility]2015-11-24 09:17:00 Test Item Value Reference Range Interpretation Comments AGAP (test code = AGAP) 15.7 10.0-20.0 [place] 442805-11-24 09:17:00 Test Item Value Reference Range Interpretation Comments Lymphocytes (test code = Lymphocytes) 29.7 20.0-40.0 [place] 442805-11-24 09:17:00 Test Item Value Reference Range Interpretation Comments Monocytes (test code = Monocytes) 9.4 2.0-12.0 [place] 442805-11-24 09:17:00 Test Item Value Reference Range Interpretation Comments Basophils (test code = 1.0 See_Comment [Aut omated message] The Basophils) system which ge nerated this result tra nsmitted reference range : <=1.0. The reference r yi was not used to int erpret this result as normal/abnormal . [place] 442805-11-24 09:17:00 Test Item Value Reference Range Interpretation Comments Eosinophils (test code = 4.6 See_Comment [A utomated message] The Eosinophils) system which ge nerated this result tra nsmitted reference range : <=4.0. The reference r yi was not used to int erpret this result as normal/abnormal . [facility] HospitalMlaiizbWAQWGBUPWI9498-48-78 09:17:00 Test Item Value Reference Range Interpretation Comments Lymphocytes # (test code = Lymphocytes 2.1 1.0-5.5 #) [facility] HospitalLevzslyRANTRWECFV9319-87-08 09:17:00 Test Item Value Reference Range Interpretation Comments Segs-Bands # (test code = Segs-Bands #) 4.0 1.5-8.1 [facility] HospitalGpbmpumOBSWNQXLYF5021-17-06 09:17:00 Test Item Value Reference Range Interpretation Comments Basophils # (test code 0.1 See_Comment [Aut omated message] The = Basophils #) system which generated this result tra nsmitted reference range : <=0.2. The reference r yi was not used to int erpret this result as normal/abnormal . [facility] HospitalVcujgqwPMJURUEQRM6208-58-35 09:17:00 Test Item Value Reference Range Interpretation Comments Eosinophils # (test code 0.3 See_Comment [A utomated message] The = Eosinophils #) system whic h generated this result tra nsmitted reference range : <=0.5. The reference r yi was not used to int erpret this result as normal/abnormal . [facility] HospitalGiiwjgtXPCEMYFOPA3716-80-65 09:17:00 Test Item Value Reference Range Interpretation Comments Segs (test code = Segs) 55.3 45.0-75.0 [facility] HospitalGppahpyUHREESMBCJ4259-28-04 09:17:00 Test Item Value Reference Range Interpretation Comments Microcyte (test code = 3+ *NA*(03/15/15 Microcyte) 3:17 AM) [facility] HospitalNevzstsFFAXFKLGUN9419-98-74 09:17:00 Test Item Value Reference Range Interpretation Comments Monocytes # (test code 0.7 See_Comment [Aut omated message] The = Monocytes #) system which generated this result tra nsmitted reference range : <=0.8. The reference r yi was not used to int erpret this result as normal/abnormal . [facility] HospitalVrrxaejNQPUCTGQAL0988-07-37 09:17:00 Test Item Value Reference Range Interpretation Comments Target Cell (test code = Target Cell) [facility] HospitalUmaltqgQYKOVISOPO7175-59-73 09:17:00 Test Item Value Reference Range Interpretation Comments Tear Cell (test code = Tear Cell) [facility] HospitalKndqounUJRXEYFTXI8814-21-45 09:17:00 Test Item Value Reference Range Interpretation Comments Polychrom (test code = Moderate Polychrom) *ABN*(03/15/15 3:17 AM) [facility] HospitalTtfpidrFPKJDVSMNE3796-70-72 09:17:00 Test Item Value Reference Range Interpretation Comments Large Plt (test code = Large Plt) [facility] HospitalTjdsjurZEWANDGXEM6407-26-88 09:17:00 Test Item Value Reference Range Interpretation Comments Hypochrom (test code = 1+ (03/15/15 3:17 Hypochrom) AM) [facility] HospitalBzwevfbVCLUOOCCWB7842-07-70 09:17:00 Test Item Value Reference Range Interpretation Comments Anisocyte (test code = 1+ *ABN*(03/15/15 Anisocyte) 3:17 AM) [facility] HospitalYnflssjNKJVWWVGNG2561-93-77 09:17:00 Test Item Value Reference Range Interpretation Comments INR (test code = INR) 1.23 0.85-1.17 [facility] HospitalJgkcuxkRVDWNKFXTX7942-93-33 09:17:00 Test Item Value Reference Range Interpretation Comments PT (test code = PT) 15.8 s 12.0-14.7 [facility] HospitalZgramerWVZKQHYUIL9739-86-65 09:17:00 Test Item Value Reference Range Interpretation Comments PTT (test code = PTT) 37.7 s 22.9-35.8 [facility] HospitalMqhtajjFPLFXCGMOQ3845-95-31 09:17:00 Test Item Value Reference Range Interpretation Comments MCH (test code = MCH) 18.8 pg 27.0-31.0 [facility] HospitalEpbwxpzQOIXHGCVMY7694-55-71 09:17:00 Test Item Value Reference Range Interpretation Comments MCV (test code = MCV) 62.9 80.0-94.0 [facility] HospitalQisugdjCKROSQDAFQ7739-85-51 09:17:00 Test Item Value Reference Range Interpretation Comments MPV (test code = MPV) 9.0 7.4-10.4 [facility] HospitalKtxvqxjTOHQCTDOFL8263-11-33 09:17:00 Test Item Value Reference Range Interpretation Comments Platelet (test code = Platelet) 220 133-450 [facility] HospitalRyouwryGFVAWYYUPH6379-70-78 09:17:00 Test Item Value Reference Range Interpretation Comments RDW (test code = RDW) 18.2 11.5-14.5 [facility] HospitalWaueonmFNCEXRFMHA5410-63-08 09:17:00 Test Item Value Reference Range Interpretation Comments MCHC (test code = MCHC) 29.9 32.0-36.0 [facility] HospitalJcvgwwoSGCDCCWATE1733-19-28 09:17:00 Test Item Value Reference Range Interpretation Comments Hct (test code = Hct) 41.1 42.0-54.0 [facility] HospitalIqbodxsJEPNMLUGKO9462-80-94 09:17:00 Test Item Value Reference Range Interpretation Comments Hgb (test code = Hgb) 12.3 14.0-18.0 [facility] HospitalGrmfknlPJFPWNFXJY1244-19-12 09:17:00 Test Item Value Reference Range Interpretation Comments WBC (test code = WBC) 6.7 3.7-10.4 [facility] HospitalTxpqzvoXUHTIEBDVQ8952-98-68 09:17:00 Test Item Value Reference Range Interpretation Comments RBC (test code = RBC) 6.54 4.70-6.10 [facility]"
[2021-06-10] MEDS ORDERED: FUROSEMIDE 40 MG/4 ML VIAL ONE (11:14)
[2021-06-10 11:50] LABS: Hematocrit 35.3 % (39.6-49.0); MPV 9.2 fL (7.6-11.3); RBC Red Blood Cell Count 5.54 M/uL (4.33-5.43)
--- NOTE | 2021-06-10 11:55 | RAD REPORT ---
EXAM DESCRIPTION: RAD - Chest Single View - 06/10/2021 11:40 am CLINICAL HISTORY: COUGH COMPARISON: Portable April 01 TECHNIQUE: AP portable chest image was obtained 06/10/2021 11:40 am . FINDINGS: Baseline chronic interstitial lung disease is accentuated by shallow inspiration. True inc rease in interstitial thickening or edema also suspected. There are patchy airspace opacities seen in the lung hobson. Heart size is prominent but not clearly different. Increased pulmonary vasculature noted. No acute bony abnormality seen. No acute aortic findings suspected. IMPRESSION: Increased interstitial and scattered alveolar opacities. The patient has stable cardiome dru along with vascular engorgement. Mild CHF/volume overload is certainly possible. A concurrent pneumonia process cannot be excluded.
[2021-06-10 12:46] LABS: Anisocytosis 2+; Blood Morphology Comment NOTED (NOT SEEN); Platelet Estimate ADEQ
[2021-06-10 12:47] LABS: Hypochromasia 1+; Ovalocytes 1+; Target Cells 3+
--- NOTE | 2021-06-10 14:08 | ER ---
Nurse's Notes [facility] Name: Tal Cornejo Age: 76 yrs Sex: Male : 1945 Arrival Date: 06/10/2021 Time: 10:44 Bed 15 Private MD: Diagnosis: Unspecified combined systolic (congestive) and diastolic (congestive) heart failure;Dyspnea, unspecified;Acute pulmonary edema Presentation: 06/10 10:50 Chief complaint: Patient states: "I cant breathe, its been like this for the last few ab2 weeks. I just cant catch my breath.". Coronavirus screen: Vaccine status: Patient reports receiving the 2nd dose of the covid vaccine. Client denies travel out of the [place] in the last 14 days. shortness of breath, Client presents with at least one sign or symptom that may indicate coronavirus-19. Standard/surgical mask placed on the client. Ebola Screen: Patient negative for fever greater than or equal to 101.5 degrees Fahrenheit, and additional compatible Ebola Virus Disease symptoms Patient denies exposure to infectious person. Patient denies travel to an Ebola-affected area in the 21 days before illness onset. No symptoms or risks identified at this time. Initial Sepsis Screen: Does the patient meet any 2 criteria? RR > 20 per min. No. Patient's initial sepsis screen is negative. Does the patient have a suspected source of infection? No. Patient's initial sepsis screen is negative. Risk Assessment: Do you want to hurt yourself or someone else? Patient reports no desire to harm self or others. Onset of symptoms is unknown. 10:50 Method Of Arrival: Ambulatory ab2 10:50 Acuity: MARTITA 3 ab2 Triage Assessment: 10:53 General: Appears in no apparent distress. comfortable, Behavior is calm, appropriate ab2 for age. Respiratory: Reports shortness of breath Onset: The symptoms/episode began/occurred 3 weeks, the patient has mild shortness of breath. Historical: - Allergies: 10:52 No Known Allergies; ab2 - PMHx: 10:52 Diabetes mellitus; Hypertensive disorder; ab2 - Immunization history:: Adult Immunizations up to date. - Social history:: Smoking status: Patient denies any tobacco usage or history of. - Family history:: not pertinent. - Hospitalizations: : No recent hospitalization is reported. Screenin:18 Abuse screen: Denies threats or abuse. Nutritional screening: No deficits noted. jh6 Tuberculosis screening: No symptoms or risk factors identified. Fall Risk Secondary diagnosis (15 points) impaired mobility, IV access (20 points). Gait- Weak (10 pts.). Assessment: 10:53 Pain: Denies pain. Cardiovascular: Denies chest pain. Respiratory: Airway is patent ab2 Respiratory effort is even, unlabored, Breath sounds with wheezes. 11:16 General: Appears in no apparent distress. Behavior is calm, cooperative. jh6 Cardiovascular: No deficits noted. Reports fatigue, shortness of breath, since x 3wks Capillary refill is brisk Rhythm is sinus rhythm. Respiratory: Breath sounds with crackles bilaterally. in left posterior lower lobe and right posterior lower lobe. Derm: swelling to bilat lower ext. 12:44 Reassessment: No changes from previously documented assessment. Patient is alert, jh6 oriented x 3, equal unlabored respirations, skin warm/dry/pink. pt able to void aprox 600cc. 14:00 Reassessment: No changes from previously documented assessment. Patient is alert, jh6 oriented x 3, equal unlabored respirations, skin warm/dry/pink. Patient denies pain at this time. Patient states feeling better. 16:14 Reassessment: Patient and/or family updated on plan of care and expected duration. Pain jh6 level reassessed. Patient denies pain at this time. Pain: Denies pain. Respiratory: Airway is patent Respiratory effort is even, unlabored. 16:25 General: attempted to call report twice to 2nd floor with no answer. . 6 Vital Signs: 10:50 BP 134 / 88; Pulse 81; Resp 22; Temp 98.4(TE); Pulse Ox 99% on R/A; Weight 111.13 kg; ab2 Height 6 ft. 1 in. (185.42 cm); Pain 0/10; 12:09 BP 139 / 95; Pulse 80; Resp 15; Pulse Ox 100% ; jl7 12:44 BP 139 / 90; Pulse 77; Resp 20; Pulse Ox 99% ; jh6 14:00 BP 156 / 98; Pulse 69; Resp 20; Pulse Ox 98% on R/A; 6 16:00 BP 133 / 90; Pulse 77; Resp 20; Pulse Ox 99% ; jh6 10:50 Body Mass Index 32.32 (111.13 kg, 185.42 cm) ab2 ED Course: 10:44 Patient arrived in ED. as 10:52 Triage completed. ab2 10:54 Arm band placed on left wrist. ab2 10:55 Timothy Brewer MD is Attending Physician. rn 11:02 Meera Santana, MYRON is Primary Nurse. jh6 11:16 EKG done, by collection technician. reviewed by Timothy Brewer MD COVID swab sent to lab. jh6 11:18 Placed in gown. Bed in low position. Call light in reach. Side rails up X 1. jh6 11:20 Inserted saline lock: 20 gauge in right wrist, using aseptic technique. jh6 11:39 XRAY Chest (1 view) In Process Unspecified. EDMS 14:06 Yana Moreno MD is Hospitalizing Provider. rn 15:00 BMP Sent. jh6 15:00 NT PRO-BNP Sent. 6 Administered Medications: 11:38 Drug: Lasix (furosemide) 40 mg Route: IVP; Site: left wrist; jh6 16:20 Follow up: Response: No adverse reaction 6 Output: 12:44 Urine: 600ml (Voided); Total: 600ml. jh6 13:41 Urine: 900ml (Voided); Total: 1500ml. jh6 14:21 Urine: 950ml (Voided); Total: 2450ml. jh6 16:36 Urine: 1800ml (Voided); Total: 4250ml. 6 Outcome: 14:07 Decision to Hospitalize by Provider. rn 17:21 Admitted to Tele accompanied by tech, Report [place] to [place] [id number] 17:21 Condition: improved 17:21 Instructed on the need for admit. 17:44 Patient left the ED. mb7 Signatures: Dispatcher [employer] Trisha Villaseñor Roman, MD MD rn Leal, Jahala, RN RN 7 Meera Santana, Jeannie Taylor RN mb7 Alejandro Elaine 2
--- NOTE | 2021-06-10 14:08 | EDPHYS ---
Physician Documentation [facility] Name: Tal Cornejo Age: 76 yrs Sex: Male : 1945 Arrival Date: 06/10/2021 Time: 10:44 Bed 15 Private MD: ED Physician Timothy Brewer HPI: 06/10 14:02 This 76 yrs old Black Male presents to ER via Ambulatory with complaints of Shortness rn Of Breath. 14:02 The patient has shortness of breath at rest, with light activity. Onset: The rn symptoms/episode began/occurred 1 week(s) ago. Duration: The symptoms are intermittent. The patient's shortness of breath is aggravated by exertion, light activity, is alleviated by rest. Associated signs and symptoms: Pertinent positives: non-productive cough, Pertinent negatives: fever, hemoptysis. Severity of symptoms: At their worst the symptoms were moderate in the emergency department the symptoms are unchanged. The patient has experienced similar episodes in the past. The patient has not recently seen a physician. Reports sob, worsening over last week, compliant with lasix but still sob. No fever. Does not feel ill. Feels identical to previous times when admitted for CHF exacerbation. . Historical: - Allergies: 10:52 No Known Allergies; ab2 - PMHx: 10:52 Diabetes mellitus; Hypertensive disorder; ab2 - Immunization history:: Adult Immunizations up to date. - Social history:: Smoking status: Patient denies any tobacco usage or history of. - Family history:: not pertinent. - Hospitalizations: : No recent hospitalization is reported. ROS: 14:02 Constitutional: Negative for fever, chills, and weight loss, Eyes: Negative for injury, rn pain, redness, and discharge, Neck: Negative for injury, pain, and swelling, Cardiovascular: Negative for chest pain, palpitations, + edema Respiratory: + sob Abdomen/GI: Negative for abdominal pain, nausea, vomiting, diarrhea, and constipation, Back: Negative for injury and pain, MS/Extremity: Negative for injury and deformity, Skin: Negative for injury, rash, and discoloration, Neuro: + generalized weakness Exam: 14:02 Constitutional: This is a well developed, well nourished patient who is awake, alert, rn mild tachypnea Head/Face: Normocephalic, atraumatic. Eyes: Periorbital areas with no swelling, redness, or edema. Cardiovascular: Regular rate and rhythm. No pulse deficits. Respiratory: + mild tachypnea, crackles throughout, no retractions Abdomen/GI: Soft, non-tender Skin: Warm, dry with normal turgor. Normal color with no rashes, no lesions, and no evidence of cellulitis. MS/ Extremity: 2+ pitting edema bilateral lower ext Neuro: Awake and alert, GCS 15 Vital Signs: 10:50 BP 134 / 88; Pulse 81; Resp 22; Temp 98.4(TE); Pulse Ox 99% on R/A; Weight 111.13 kg; ab2 Height 6 ft. 1 in. (185.42 cm); Pain 0/10; 12:09 BP 139 / 95; Pulse 80; Resp 15; Pulse Ox 100% ; jl7 12:44 BP 139 / 90; Pulse 77; Resp 20; Pulse Ox 99% ; jh6 14:00 BP 156 / 98; Pulse 69; Resp 20; Pulse Ox 98% on R/A; jh6 16:00 BP 133 / 90; Pulse 77; Resp 20; Pulse Ox 99% ; jh6 10:50 Body Mass Index 32.32 (111.13 kg, 185.42 cm) ab2 MDM: 10:55 Patient medically screened. rn 14:02 Differential diagnosis: CHF exacerbation, pulmonary edema. Data reviewed: vital signs, rn nurses notes, lab test result(s), EKG, radiologic studies, plain films, and as a result, I will admit patient. Counseling: I had a detailed discussion with the patient and/or guardian regarding: the historical points, exam findings, and any diagnostic results supporting the discharge/admit diagnosis, lab results, radiology results, the need for further work-up and treatment in the hospital. Response to treatment: There is no appreciated change of the patient's symptoms at this time, and as a result, I will admit patient. Admission orders: after a detailed discussion of the patient's condition and case, the admit orders are written by me. ED course: Admitted to Dr. Moreno for CHF exacerbation and diuresis. . 06/10 11:04 Order name: BMP rn 06/10 11:04 Order name: Blood Culture Adult (2) rn 06/10 11:04 Order name: CBC with Diff; Complete Time: 13:58 rn 06/10 11:04 Order name: NT PRO-BNP rn 06/10 11:05 Order name: SARS-COV-2 RT PCR (Document "Date of Onset" if Symptomatic); Complete Time: rn 13:58 06/10 11:05 Order name: Basic Metabolic Panel; Complete Time: 13:58 EDVT 06/10 11:05 Order name: NT PRO-BNP; Complete Time: 13:58 EDVT 06/10 11:06 Order name: Troponin High Sensitivity; Complete Time: 13:58 rn 06/10 11:52 Order name: Manual Differential; Complete Time: 13:58 EDVT 06/10 15:27 Order name: CBC with Automated Diff EDVT 06/10 15:27 Order name: CBC with Automated Diff EDVT 06/10 15:27 Order name: Comprehensive Metabolic Panel EDVT 06/10 15:27 Order name: Comprehensive Metabolic Panel EDVT 06/10 15:27 Order name: Magnesium EDVT 06/10 10:58 Order name: XRAY Chest (1 view); Complete Time: 12:00 rn 06/10 11:04 Order name: EKG; Complete Time: 11:05 rn 06/10 11:04 Order name: Cardiac monitoring; Complete Time: 11:15 rn 06/10 11:04 Order name: EKG - Nurse/Tech; Complete Time: 11:15 rn 06/10 11:04 Order name: IV Saline Lock; Complete Time: 11:58 rn 06/10 11:04 Order name: Labs collected and sent; Complete Time: 11:58 rn 06/10 11:04 Order name: O2 Per Protocol; Complete Time: 11:15 rn 06/10 11:04 Order name: O2 Sat Monitoring; Complete Time: 11:15 rn 06/10 15:27 Order name: CONS Physician Consult EDVT 06/10 15:27 Order name: 60g Consistent Carbohydrate (ADA 1800) EDVT Administered Medications: 11:38 Drug: Lasix (furosemide) 40 mg Route: IVP; Site: left wrist; [facility] 16:20 Follow up: Response: No adverse reaction [facility] Disposition Summary: 06/10/21 14:07 Hospitalization Ordered Hospitalization Status: Inpatient Admission rn Provider: Yana Moreno rn Location: Telemetry/MedSurg (Inpatient) rn Condition: Stable rn Problem: an acute exacerbation rn Symptoms: are unchanged rn Bed/Room Type: Standard rn Room Assignment: 206(06/10/21 15:43) eb Diagnosis - Unspecified combined systolic (congestive) and diastolic (congestive) heart failure rn - Dyspnea, unspecified rn - Acute pulmonary edema rn Forms: - Medication Reconciliation Form rn - SBAR form rn Signatures: Dispatcher [employer] EDTimothy Shrestha MD MD rn Botello, Elizabeth eb Hastedt, Jennifer RN RN jh6 Alejandro Elaine Corrections: (The following items were deleted from the chart) 15: 14:07 rn eb
[2021-06-10] MEDS ORDERED: ALBUTEROL 2.5 MG/3 ML NEB SOL NEB PRN (15:20)
[2021-06-10] MEDS ORDERED: MORPHINE 2 MG/ML SYR IV PRN (15:20)
[2021-06-10] MEDS ORDERED: ONDANSETRON 4 MG/2 ML VIAL IV PRN (15:20)
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
[2021-06-10] MEDS ORDERED: GUAIFENESIN/DM 5 ML UCUP PO PRN (15:25)
[2021-06-10 15:36] VITALS: O2SAT 99
[2021-06-10] MEDS: INSULIN -REGULAR HUMAN 50 UNIT/0.5 ML ML SQ SCH ×2 (16:30→20:44)
[2021-06-10 19:26] VITALS: BMI 32.3
[2021-06-10] MEDS: BUMETANIDE 1 MG/4 ML VIAL IV SCH (20:36)
[2021-06-10] MEDS: METOPROLOL TAR 25 MG TAB PO SCH (20:37)
[2021-06-10] MEDS ORDERED: ATORVASTATIN 40 MG TAB PO SCH (21:00)
[2021-06-11 06:55] LABS: Potassium 3.6 mmol/L (3.5-5.1); Protein, Total 6.8 g/dL (6.4-8.2)
[2021-06-11 06:57] LABS: Hematocrit 36.1 % (39.6-49.0); MPV 9.1 fL (7.6-11.3); RBC Red Blood Cell Count 5.71 M/uL (4.33-5.43)
[2021-06-11] MEDS: INSULIN -REGULAR HUMAN 50 UNIT/0.5 ML ML SQ SCH ×2 (07:30→11:30)
[2021-06-11 08:03] LABS: Blood Morphology Comment NOTED (NOT SEEN); Hypochromasia 2+; Platelet Estimate ADEQ
[2021-06-11 08:04] LABS: Target Cells 2+
[2021-06-11] MEDS: METOPROLOL TAR 25 MG TAB PO SCH (08:30)
[2021-06-11] MEDS: BUMETANIDE 1 MG/4 ML VIAL IV SCH (08:31)
[2021-06-11] MEDS ORDERED: RIVAROXABAN 20 MG TABLET PO SCH (09:00)
[2021-06-11] MEDS ORDERED: lisinopriL 5 MG TAB PO SCH (09:00)
--- NOTE | 2021-06-11 12:50 | P.DS ---
Admission Date: 06/10/21 Discharge Date: 06/11/21 Disposition: ROUTINE DISCHARGE Discharge Condition: FAIR Reason for Admission: Shortness of breath Brief History of Present Illness: 76-year-old male with past medical history of hypertension, diet-controlled diabetes mellitus, HLD, history of DVT on chronic anticoagulation status post IVC filter, history of recurrent CHF, status post recent admission for CHF exacerbation 2 months ago. He underwent cardiac cath to measure aortic valve gradient with noted 35 mmHg and moderately severe aortic valve stenosis. Patient was discharged on Lasix. He presented today because of increasing shortness of breath was on minimal exertion. He admits to orthopnea but no paroxysmal nocturnal dyspnea. He denies any shortness of breath at rest. He states he is adherent with his furosemide. On presentation in the ED chest x- ray showed bilateral haziness consistent with pulmonary edema. His Covid screen was negative. He admits to regular fluid intake but denies any sepsis. He states he walks a lot at home. He has been admitted for CHF exacerbation Hospital Course: Patient with history of hypertension, DVT on chronic anticoagulation, moderate to severe aortic stenosis on recent cardiac cath discharged home on Lasix presented now because of worsening shortness of breath with orthopnea and minimal activity. Patient on admission was started on IV diuretics with improvement in his symptoms. His O2 sats remained stable above 90% on room air. He admits to not taking his Lasix since hospital discharge. Need for adherence was discussed. Patient was scheduled to follow-up with cardiology as outpatient. He will continue his previous home dose of Lasix. Vital Signs/Physical Exam: Temp Pulse Resp BP Pulse Ox 98.6 F 66 18 113/68 95 06/11/21 04:00 06/11/21 04:00 06/11/21 04:00 06/11/21 04:00 06/11/21 04:00 General: Alert, In no apparent distress, Oriented x3 HEENT: Atraumatic, Normocephalic Neck: Supple, 2+ carotid pulse no bruit Respiratory: Clear to auscultation bilaterally, Normal air movement Cardiovascular: No edema, Normal pulses, Regular rate/rhythm, Normal S1 S2 Gastrointestinal: Normal bowel sounds, Soft and benign, Non-distended Musculoskeletal: No clubbing, No swelling Integumentary: No rashes, No breakdown Neurological: Normal gait, Normal speech, Normal strength at 5/5 x4 extr Laboratory Data at Discharge: WBC 5.00 K/uL (4.3-10.9) 06/11/21 05:44 Hgb 11.0 g/dL (13.6-17.9) L 06/11/21 05:44 Hct 36.1 % (39.6-49.0) L 06/11/21 05:44 Plt Count 172 K/uL (152-406) 06/11/21 05:44 Sodium 142 mmol/L (136-145) 06/11/21 05:44 Potassium 3.6 mmol/L (3.5-5.1) 06/11/21 05:44 BUN 16 mg/dL (7-18) 06/11/21 05:44 Creatinine 1.44 mg/dL (0.55-1.3) H 06/11/21 05:44 Glucose 111 mg/dL (74-106) H 06/11/21 05:44 Magnesium 2.2 mg/dL (1.8-2.4) 06/10/21 17:15 Total Bilirubin 1.0 mg/dL (0.2-1.0) 06/11/21 05:44 AST 34 U/L (15-37) 06/11/21 05:44 ALT 48 U/L (12-78) 06/11/21 05:44 Alkaline Phosphatase 106 U/L (45-117) 06/11/21 05:44 Home Medications: Atorvastatin Calcium [Lipitor] 40 mg PO BEDTIME #30 tab 04/01/21 Metoprolol Tartrate 25 mg PO BID #60 tablet 04/01/21 Rivaroxaban [Xarelto] 20 mg PO DAILY #30 tablet 04/01/21 lisinopriL [Prinivil*] 5 mg PO DAILY #30 tab 04/01/21 Furosemide [Lasix*] 40 mg PO BIDL #60 tab 04/02/21 Diet: Low sodium Activity: Ad fabiano Followup: NONE,NONE [Primary Care Provider] - Kun Garcia MD [ACTIVE - CAN ADMIT] - 1 Week Time spent managing pt's care (in minutes): 35
[2021-06-11 13:00] VITALS: BP 117/65; TEMP 98
--- NOTE | 2021-06-12 12:01 | CON ---
Date of Consultation: 06/10/2021 History Of Present Illness: The patient is 76 years old. Has a history of hypertension, diabetes, m ild aortic stenosis, chronic diastolic congestive heart failure, came in with new onset shortness of breath consistent with acute on chronic diastolic congestive heart failure exacerbation. The patient only has mild coronary artery disease by catheterization in March 2021. He had PND, orthopnea, p edal edema. Denied any palpitation or syncope. Denied any fever or chills. He has already improved on IV Bumex. He is also on inhalers. Allergies: NONE. Review of Systems: Negative. Social History: Negative. Family History: Noncontributory. Past Medical History: As stated earlier. Medications: At home include Lasix, Lipitor, lisinopril, metoprolol, and Xarelto. Physical Examination: General: He was pleasant, no acute distress. Vital Signs: Stable, afebrile. HEENT: Negative. Neck: Supple with no bruit. Chest: Reveals rales both bases. Cardiac: Revealed regular rhythm and rate with aortic stenosis, murmur. No gallops. No rubs. Abdomen: Benign. Extremities: Revealed trace edema. Skin: Dry and intact. Pulses were present distally bilaterally. Neurological: He was nonfocal. Impression And Plan: 1.Moderate aortic stenosis at 1.0 sq cm with congestive heart failure. I think the patient may bene fit from transcatheter aortic valve replacement. 2.Hypertension, well controlled. 3.Diabetes. 4.Acute on chronic diastolic congestive heart failure, caused by aortic stenosis. He only has mild coronary artery disease. I would continue his IV Bumex, inhalers along with medications at home and he can go home whenever it is okay with Dr. Moreno and I will make sure he sees us in the office in the very near future. He is on Xarelto for paroxysmal atrial fibrillation that is in sinus rhythm o n beta-eladio. He also has a history of dyslipidemia, on Lipitor. NB/MODL Voice ID: [id number] Report ID: [id number]
== END 2021-06-11 15:14 | disposition home or self-care (01) ==
LOC: ER 10:43 → ERHOLD 15:23 → 2ND 17:22
PROVIDERS: ADMIT Internal Medicine; ATTEND Internal Medicine
DX: I13.0 Hypertensive heart and chronic kidney disease with heart failure and stage 1 through stage 4 chronic kidney disease, or unspecified chronic kidney disease (principal); E11.22 Type 2 diabetes mellitus with diabetic chronic kidney disease; N18.31 Chronic kidney disease, stage 3a; I50.33 Acute on chronic diastolic (congestive) heart failure; E78.5 Hyperlipidemia, unspecified; I35.0 Nonrheumatic aortic (valve) stenosis; Z79.01 Long term (current) use of anticoagulants; Z86.718 Personal history of other venous thrombosis and embolism; Z20.822 Contact with and (suspected) exposure to COVID-19
CPT/HCPCS: 36415; 71045; 80048; 80053; 82947; 83735; 83880; 84484; 85025; 87040; 87205; 93005; 96374; 99285; G0378; J1940; U0003

== ENCOUNTER 2021-09-23 13:35 | Inpatient (IN) | payer OTHER ==
--- OUTSIDE RECORDS SUMMARY | 2021-09-23 13:42 | XMS REPORT | Continuity of Care Document ---
:1945 Author Organization [facility] t Address [address] [place] [address] Care Team Providers Name Role Phone Asked, Pcp Primary Care Physician Unavailable Sunday CAMARGO Attending Clinician ROYER BLANK Attending Clinician Unavailable Gabe Butts MD Attending Clinician Sheikh MARY JO Attending Clinician Chani Frazier Attending Clinician MD CHANI FRAZIER Attending Clinician Unavailable ROYER BLANK Admitting Clinician Unavailable Admitting Clinician Unavailable MD MAVERICK Admitting Clinician Unavailable Payers Payer Name Policy Type Policy Effective Date Expiration Date Sour ce Number MEDICAREMEDICARE PART [id number] 2010 [facility] [id number] 2010- 00:00:00 [place] Condition Condition Status Onset Resolution Last Treating Co mments Source Name Details Category Date Date Treatment Clinician Date SUPRAVENTR Diagnosis Active 2020-01-19 Memoria ICULAR 11-27 13:03:00 l TACHYCARDI 00:00: Brody n A, ACUTE SUPRAVENTR 00 BREANNA ICULAR TACHYCARDI A, ACUTE BREANNA Active 11/28/2019 [facility] BREATHING Diagnosis Active 2019-11-28 Memoria PROBLEM 11-27 23:36:00 l 00:00: Kenneth BREATHING 00 PROBLEM Active 11/28/2019 [facility] COVID-19 COVID-19 Disease Active Metho di virus virus 11-24 detected detected 00:00: Hospit a 00 l Shortness Shortness Disease Active Met hodi of breath of breath 11-23 00:00: Hospita 00 l DVT/LEGS Diagnosis Active 2014-042015-03-15 M emoria SWOLLEN 05-11 03:10:00 l DVT/LEGS 00:00: Brody n SWOLLEN 00 Active 03/11/2015 [facility] LEG PAIN Diagnosis Active 2012-12-23 M emoria 12-23 04:15:00 l LEG PAIN 00:00: Brody n 00 Active 12/23/2012 [facility] Hypertensi Problem Resolve 2019-12-10 Memoria ve d 22:38:00 l disorder, Kenneth systemic Hypertensi arterial ve (disorder) disorder, systemic arterial (disorder) Resolved Problem 12/10/2019 [facility] Neuropathy Problem Resolve 2019-12-10 Memoria (disorder) d 22:38:00 l [place] Neuropathy (disorder) Resolved Problem 12/10/2019 [facility] Diabetes Problem Resolve 2012-12-25 Me moria mellitus d 21:52:45 l Diabetes Brody n mellitus Resolved Problem 12/25/2012 [facility] Gout Problem Resolve 2012-12-25 Caden karine d 21:52:45 l Gout Kenneth Resolved Problem 12/25/2012 [facility] Hypertensi Problem Resolve 2012-12-25 Memoria on d 21:52:45 l [place] Hypertensi on Resolved Problem 12/25/2012 [facility] Neuropathy Problem Resolve 2012-12-25 Memoria d 21:52:45 l Kenneth Neuropathy Resolved Problem 12/25/2012 [facility] Type II Problem Active 2019-12-10 Caden karine diabetes 22:38:00 l mellitus Type II Mariam nn uncontroll diabetes ed mellitus (finding) uncontroll ed (finding) Active Problem 12/10/2019 [facility] SUPRAVENTR Diagnosis Active 2020-01-19 Memoria ICULAR 13:03:00 l TACHYCARDI Brody n A SUPRAVENTR ICULAR TACHYCARDI A Active [facility] ACUTE Diagnosis Active 2020-01-19 Mem oria KIDNEY 13:03:00 l FAILURE, ACUTE Kenneth UNSPECIFIE KIDNEY D FAILURE, UNSPECIFIE D Active [facility] TYPE 2 Diagnosis Active 2020-01-19 Mem oria DIABETES 13:03:00 l MELLITUS TYPE 2 Brody n WITH DIABETES HYPERGLYCE MELLITUS WITH HYPERGLYCE Active [facility] Supraventr Problem 2019-12-10 M emoria icular 22:38:00 l tachycardi Brody n a Supraventr icular tachycardi a 12/10/2019 [facility] Diabetes Problem Resolve 2019-12-10 Me moria mellitus d 22:38:00 l (disorder) Diabetes He rmann mellitus (disorder) Resolved Problem 12/10/2019 [facility] Gout Problem Resolve 2019-12-10 Caden karine (disorder) d 22:38:00 l Gout [place] (disorder) Resolved Problem 12/10/2019 [facility] History of Past Illness Condition Condition Condition Status Onset Resolution Last Treating Co mments Source Name Details Category Date Date Treatment Clinician Date Discharge Problem 2014-042015-03-18 2015-03-18 Memoria Diagnosis: 05-15 05:51:43 05:51:43 l Acute DVT 06:00: [place] (deep Discharge 00 venous Diagnosis: thrombosis Acute DVT ) (deep venous thrombosis ) 03/15/2015 03/18/2015 [facility] Allergies, Adverse Reactions, Alerts Allergy Allergy Status Severity Reaction(s) Onset Inactive Treating Comm ents Source Name Type Date Date Clinician NO KNOWN Drug Active Univers ALLERGIE Class ity of S [facility] Branch Social History Social Habit Start Date Stop Date Quantity Comments Source Sex Assigned At [facility] Exposure to Not sure [facility]-CoV-2 [facility] (event) Branch History SDOH Tenriism Alcohol Std Hospital Drinks History [facility] Tenriism Alcohol Binge Hospital History SDAL Tenriism Alcohol Comment Hospital Social History 2019-11-29 2019-11-29 [facility] 08:52:56 08:52:56 Alcohol intake 2019-11-26 2019-11-26 Lifetime Tenriism 00:00:00 00:00:00 non-drinker Hospital (finding) History SDOH 2019-11-25 2019-11-25 1 Tenriism Alcohol Frequency 00:00:00 00:00:00 Hospita l Tobacco use and 2019-11-24 2019-11-24 Smokeless tobacco Me thodist exposure 00:00:00 00:00:00 non-user Hospital Smoking Status Start Date Stop Date Source Unknown if ever smoked [facility] Social History [facility] Medications Ordered Filled Start Stop Current Ordering Indication Dosage Frequency Signature Comments Components Source Medication Medication Date Date Medication? Clinician (SIG) Name Name cefTRIAXone 2019-04- No 1000mg 1,000 mg, Univers (ROCEPHIN) 06-19 IV ity of 1,000 mg in 02:00: 01:33 Piggyback, [place] NaCl 0.9% 00 :00 ONCE, 1 Medical (NS) 50 mL dose, Sun Bran ch MINI-BAG 04/17/20 at 2000, 50 mL
Reas on for Anti-Infec tive: Documented Infection< br>Documen casey Infection Site: Urine
D uration of Therapy: Other (see Comments) NaCl 0.9% 2019-04 No 1000mL at 999 Uni vers (NS) bolus 06-19 mL/hr, ity of infusion 02:00: 01:51 1,000 mL, Reynaldo as 1,000 mL 00 :00 IV Medical Infusion, Branch ONCE, 1 dose, 04/17/20 at 2000, STAT ondansetron 2019-04 No 4mg 4 mg, Slow Univers (ZOFRAN 06-19 IV Push, ity of (PF)) 01:15: 00:19 ONCE, 1 [place] injection 4 00 :00 dose, Sun Med ical mg 04/17/20 Branch at 1915, ROMAN iohexol 2019-04- No 120mL 120 mL, Unive rs (OMNIPAQUE 06-19 Intravenou it y of 350 01:00: 00:48 s, ONCE, 1 [place] BULK-150 00 :00 dose, Sun Medica l mL) 04/17/20 Branch injection at 1900, 120 mL Routine ondansetron 2019-04 Yes [id number] 4mg Take 1 Univers (ZOFRAN - tablet by ity of ODT) 4 mg 00:00: mouth [place] disintegrat 00 every 8 Medic al ing tablet (eight) Branch hours as needed for Nausea and Vomiting (N/V). cefpodoxime 2019-04- No [id number] 100mg Take 1 Univers 100 mg 2-27 04-25 tablet by ity of tablet 00:00: 05:59 mouth 2 [place] 00 :00 (two) Medical times Branch daily for 7 days. metoprolol 2020-0 Yes 25 mg = 1 [...] tab, PO, l tablet 18:18: QPM, For Kenneth Deep Venous Thrombosis / Pulmonary Embolism, # 30 tab, 0 Refill(s) Glipizide 5 2019-0 Yes 5 mg = 1 Me moria MG Oral 8-18 tab, PO, l Tablet 18:18: BID-Before Mariam Meals, # 60 tab, 0 Refill(s) Saline 0 No Notes: Memoria Flush 0.9% 8-18 Same as: l 02:00: BD Posiflush Sterile Saline 0 No Notes: Memoria [...] 8-10 Give with l 02:00: food. Kenneth (Same As: Coreg) Adenosine 2019-0 No Notes: Memori a 8-09 Rapid IV l 22:36: PUSH over [place] 00 1-2 sec; Flush line immediatel y after drug is given. Lac-Hydrin 2019-0 No Notes: Memor ia 8-09 (Same as: l 22:00: Ainhactin) Xarelto 2020-0 No = 15 Memoria 8- mL/min, l 22:00: Start [place] 00 date: 11/29/19 17:00:00 CDT, Duration: 30 [...] Memoria 11-28 (Same as: l 07:11: Colace) [place] (Do Not Crush) Ondansetron 0 No Notes: Caden karine 11-28 (Same as: l 07:11: Zofran) [place] 00 MEDICATION WASTE Product Size: 4 mg Product Wasted: ___ mg Trazodone 0 No Notes: Memori a 11-28 (Same As: l 07:11: Desyrel) [place] 00 Acetaminoph 0 No Notes: Do M emoria en 11-28 not exceed l 07:11: 4 gm/day. [place] (Same as: Tylenol) Lactated No 1,000 mL, Caden karine Ringers IV 11-28 Rate: 75 l 1,000 mL 07:11: ml/hr, Kenneth 00 Infuse over: 13.3 hr, Route: IV, [...] Notes: Memoria 11-28 (Same l 07:11: as:MORPhin [place] 00 e Sulfate) Albuterol 0 No Notes: Memori a 0.833 MG/ML 11-28 (Same as: l / 07:11: Duoneb) Kenneth Ipratropium 00 [place] 0.167 MG/ML Inhalant Solution [DuoNeb] Hydralazine 0 No Notes: Caden karine 11-28 (Same as: l 07:11: Apresoline Kenneth 00 ) Push over 5 minutes losartan-hy 2019-0 2020- No 1{tbl} QD Take 1 M ethodi drochloroth 11-[address] iazide 01:07: 00:00 mouth Hospita (HYZAAR) 18 :00 daily. l 100-12.5 mg per tablet metFORMIN 2019-0 2020- No 500mg Q.5D Take 500 Me thodi (GLUCOPHAGE 11-[address] ) 500 mg 01:07: 00:00 mouth 2 Hospi ta tablet 18 :00 (two) l times a day with meals. furosemide 2019-0 2020- No 20mg Q.5D Take 20 mg Methodi (LASIX) 20 11-[address] mg tablet 01:07: 00:00 (two) Hospit a 18 :00 times a l day. aspirin 81 2019-0 2020- No 81mg QD Chew 1 Meth [...] for up to 30 days. atorvastati 2019-0 2020- No 10mg QD Take 1 Met hodi n (LIPITOR) 11-25 tablet (10 s t 10 mg 00:00: 00:00 mg total) Hospit a tablet 00 :00 by mouth l nightly for 30 days. metoprolol 2019-0 2020- No 25mg Q.5D Take 1 Meth eric tartrate 11-25 tablet (25 st (LOPRESSOR) 00:00: 00:00 mg total) Hospita 25 mg 00 :00 by mouth 2 l tablet (two) times a day for 30 days. glipiZIDE 2019-0 2020- No 5mg Q.5D Take 1 Metho di (GlucotroL) 11-25 tablet (5 st 5 MG tablet 00:00: 00:00 mg total) Hospita 00 :00 by mouth 2 l (two) times a day before meals for 30 days. azithromyci 2019-0 2020- No 500mg QD Take 1 Me thodi n 11-[address] (Zithromax) 00:00: 00:00 (500 mg Ho spita 500 MG 00 :00 total) by l tablet mouth daily. No known 2019-0 No No known Metho di medications 11-[address] 23:01: s Hospita 01 l No known 2019-0 No No known Metho di medications 11-[address] 23:01: s Hospita 01 l 1 ML 2014-04 Yes 130 mg, Memoria Enoxaparin 1-24 SUB-Q, l sodium 150 13:43: Q12H, # 10 H ermann MG/ML 00 ea, 0 Prefilled Refill(s) Syringe [Lovenox] warfarin 2014-04 Yes 10 mg = 1 M emoria mg oral 1-24 tab, PO, l tablet 13:43: Daily, # [place] 00 14 tab, 0 Refill(s) 1 ML 2014-04 No 130 mg, Memoria Enoxaparin 1-24 SUB-Q, l sodium 150 13:40: Q12H, # 10 H ermann MG/ML 28 ea, 0 Prefilled Refill(s) Syringe [Lovenox] Lovenox 2014-04 Yes Notes: Memoria 24 Nurse to l 13:39: ensure [place] 00 documentat ion of patient education per anticoagul ation policy. (Same as: Lovenox) warfarin 2014-04 No 10 mg = 1 M emoria mg oral 1-24 tab, PO, l tablet 13:31: Daily, # [place] 00 14 tab, 0 Refill(s) 1 ML 2014-04 No 150 mg, Memoria Enoxaparin -24 SUB-Q, l sodium 150 13:30: Q12H, # 10 H ermann MG/ML 00 ea, 0 Prefilled Refill(s) Syringe [Lovenox] Lovenox 2014-04 No 150 mg, Memoria 24 Route: l 13:15: SUB-Q, [place] 00 ONCE, Dosing Weight 127.273, kg, Start [...] K 50 mg, 1 Memoria mg oral - [facility] tab, PO, l tablet 09:47: Q6H, PRN, Brody n 20 40 tab, Pain, Substituti on Allowed, TAB allopurinol Yes Silvia K 300 mg, 1 Memoria [address] [facility] tab, PO, l tablet 09:47: Daily, 30 Brody n 10 tab, Substituti on Allowed, TAB allopurinol No Silvia K 300 mg, 1 Memoria 12-23 [facility] tab, l 09:08: Route: PO, [place] 00 Drug form: TAB, ONCE, Dosing Weight 135, kg, Start date: 12/23/12 4:08:00, Stop date: 12/23/12 4:08:00 [place] No Silvia K 1 tab, Memori a [...] 12-23 [facility] ONCE, l 08:45: Dosing [place] 00 Weight 135, kg, Start date: 12/23/12 3:45:00, Stop date: 12/23/12 3:45:00 Vital Signs Vital Name Observation Time Observation Value Comments Source Systolic blood 2020-04-18 01:00:00 141 mm[Hg] [facility] Diastolic blood 2020-04-18 01:00:00 75 mm[Hg] [facility] Heart rate 2020-04-18 01:00:00 69 /min [facility] Respiratory rate 2020-04-18 01:00:00 16 /min [facility] Oxygen saturation in 2020-04-18 01:00:00 97 /min [facility] Arterial blood by [facility] Pulse oximetry Branch Body temperature 2020-04-17 22:49:00 36.83 Manasa [facility] Body weight 2020-04-17 22:49:00 117.935 kg [facility] Systolic blood 2020-04-18 01:00:00 141 mm[Hg] Univer sity of pressure [facility] Diastolic blood 2020-04-18 01:00:00 75 mm[Hg] Unive rsity of pressure [facility] Heart rate 2020-04-18 01:00:00 69 /min [facility] Respiratory rate 2020-04-18 01:00:00 16 /min [facility] Oxygen saturation in 2020-04-18 01:00:00 97 /min [facility] Arterial blood by [facility] Pulse oximetry Branch Body temperature 2020-04-17 22:49:00 36.83 Manasa [facility] Body weight 2020-04-17 22:49:00 117.935 kg [facility] Heart Rate 2019-12-08 21:00:00 [facility] [place] Respitory Rate 2019-12-08 21:00:00 Memori al Kenneth Systolic (mm Hg) 2019-12-08 21:00:00 Caden rial [place] Diastolic (mm Hg) 2019-12-08 21:00:00 Mem orial Kenneth Heart Rate 2019-12-08 16:54:00 [facility] [place] Respitory Rate 2019-12-08 16:54:00 Memori al [place] Systolic (mm Hg) 2019-12-08 16:54:00 Caden rial Kenneth Diastolic (mm Hg) 2019-12-08 16:54:00 Mem orial Kenneth Heart Rate 2019-12-08 13:00:00 [facility] [place] Respitory Rate 2019-12-08 13:00:00 Memori al [place] Systolic (mm Hg) 2019-12-08 13:00:00 Caden rial Kenneth Diastolic (mm Hg) 2019-12-08 13:00:00 Mem orial [place] Temperature Oral (F) 2019-12-08 01:00:00 99.1 F [facility] Kenneth Temperature Oral (F) 2019-12-07 23:50:00 98.4 F [facility] Kenneth Temperature Oral (F) 2019-12-07 22:40:00 98.2 F [facility] Kenneth Temperature Oral (F) 2019-12-07 04:58:00 97.9 F [facility] [place] Heart Rate 2019-12-07 04:58:00 [facility] Kenneth Respitory Rate 2019-12-07 04:58:00 Memori al Kenneth Systolic (mm Hg) 2019-12-07 04:58:00 Caden rial [place] Diastolic (mm Hg) 2019-12-07 04:58:00 Mem orial Kenneth Heart Rate 2019-12-07 00:46:00 [facility] Kenneth Respitory Rate 2019-12-07 00:46:00 Memori al Kenneth Systolic (mm Hg) 2019-12-07 00:46:00 Caden rial Kenneth Diastolic (mm Hg) 2019-12-07 00:46:00 Mem orial [place] Temperature Oral (F) 2019-12-07 00:46:00 98.4 F [facility] Kenneth Heart Rate 2019-12-06 21:00:00 [facility] [place] Respitory Rate 2019-12-06 21:00:00 Memori al Kenneth Systolic (mm Hg) 2019-12-06 21:00:00 Caden rial Kenneth Diastolic (mm Hg) 2019-12-06 21:00:00 Mem orial [place] Temperature Oral (F) 2019-12-06 19:00:00 97.5 F [facility] Kenneth Heart Rate 2019-11-30 04:50:00 [facility] Kenneth Respitory Rate 2019-11-30 04:50:00 Memori al Kenneth Systolic (mm Hg) 2019-11-30 04:50:00 Caden rial [place] Diastolic (mm Hg) 2019-11-30 04:50:00 Mem orial Kenneth Heart Rate 2019-11-30 01:00:00 [facility] [place] Respitory Rate 2019-11-30 01:00:00 Memori al Kenneth Systolic (mm Hg) 2019-11-30 01:00:00 Caden rial [place] Diastolic (mm Hg) 2019-11-30 01:00:00 Mem orial Kenneth Heart Rate 2019-11-29 22:41:00 [facility] Kenneth Systolic (mm Hg) 2019-11-29 22:41:00 Caden rial Kenneth Diastolic (mm Hg) 2019-11-29 22:41:00 Mem orial Kenneth Respitory Rate 2019-11-29 21:05:00 Memori al [place] Height 2019-11-29 08:57:00 185.42 cm [facility] Kenneth Weight 2019-11-29 08:57:00 [facility] Kenneth BMI Calculated 2019-11-29 08:57:00 Madhavi al [place] Height 2019-11-29 02:04:00 185.42 cm [facility] [place] BMI Calculated 2019-11-29 02:04:00 Memori al Kenneth Weight 2019-11-29 02:04:00 [facility] Kenneth Temperature Oral (F) 2019-11-29 02:04:00 98.2 F [facility] Systolic blood 2019-11-27 20:21:40 133 mm[Hg] [facility] pressure Diastolic blood 2019-11-27 20:21:40 65 mm[Hg] [facility] pressure Heart rate 2019-11-27 20:21:40 64 /min [facility] Body temperature 2019-11-27 20:21:40 36.22 Manasa [facility] Respiratory rate 2019-11-27 20:21:40 18 /min [facility] Oxygen saturation in 2019-11-27 20:21:40 98 /min [facility] Arterial blood by Pulse oximetry Body weight 2019-11-27 09:14:10 114.034 kg [facility] BMI 2019-11-27 09:14:10 33.17 kg/m2 [facility] Body height 2019-11-25 06:48:00 185.4 cm [facility] Respitory Rate 2015-03-15 14:30:00 [facility] [place] Temperature Oral (F) 2015-03-15 14:30:00 98.0 F [facility] Kenneth Heart Rate 2015-03-15 14:30:00 [facility] [place] Systolic (mm Hg) 2015-03-15 14:30:00 Caden rial Kenneth Diastolic (mm Hg) 2015-03-15 14:30:00 Mem orial [place] Systolic (mm Hg) 2015-03-15 13:30:00 Caden rial Kenneth Diastolic (mm Hg) 2015-03-15 13:30:00 Mem orial [place] Respitory Rate 2015-03-15 13:30:00 Memori al [place] Respitory Rate 2015-03-15 12:30:00 Memori al Kenneth Temperature Oral (F) 2015-03-15 12:30:00 97.0 F [facility] Kenneth Systolic (mm Hg) 2015-03-15 12:30:00 Caden rial Kenneth Diastolic (mm Hg) 2015-03-15 12:30:00 Mem orial [place] Temperature Oral (F) 2015-03-15 10:32:00 97.4 F [facility] Kenneth Heart Rate 2015-03-15 04:52:00 [facility] [place] Height 2015-03-15 04:52:00 185.42 cm [facility] Kenneth Weight 2015-03-15 04:52:00 [facility] Kenneth BMI Calculated 2015-03-15 04:52:00 Memori al Kenneth Temperature Oral (F) 2012-12-23 09:57:00 98.5 F [facility] [place] Systolic (mm Hg) 2012-12-23 09:57:00 Caden rial [place] Respitory Rate 2012-12-23 09:57:00 Memori al Kenneth Heart Rate 2012-12-23 09:57:00 [facility] [place] Diastolic (mm Hg) 2012-12-23 09:57:00 Mem orial Kenneth Respitory Rate 2012-12-23 08:29:00 Memori al [place] Heart Rate 2012-12-23 08:29:00 [facility] Kenneth Temperature Oral (F) 2012-12-23 08:29:00 97.9 F [facility] Kenneth Systolic (mm Hg) 2012-12-23 08:29:00 Caden rial [place] Diastolic (mm Hg) 2012-12-23 08:29:00 Mem orial [place] Weight 2012-12-23 08:29:00 [facility] Kenneth Height 2012-12-23 08:29:00 185.42 cm [facility] Kenneth Procedures Procedure Date / Time Performing Clinician Source Performed CT ABDOMEN PELVIS W 2020-04-18 00:51:42 Alfredo Brand [facility] CONTRAST [facility] CBC WITH DIFF 2020-04-17 23:58:00 Sunday [facility] URINALYSIS 2020-04-17 23:58:00 Sunday [facility] LIPASE 2020-04-17 23:58:00 Sunday Alfredo [facility] COMP. METABOLIC PANEL 2020-04-17 23:58:00 Alfredo Brand [facility] ([id number]) [facility] POC GLUCOSE 2019-11-27 17:59:00 [facility] POC GLUCOSE 2019-11-27 13:20:00 [facility] POC GLUCOSE 2019-11-27 01:24:00 [facility] POC GLUCOSE 2019-11-26 13:21:00 [facility] POC GLUCOSE 2019-11-26 01:15:00 [facility] POC GLUCOSE 2019-11-25 21:14:00 [facility] POC GLUCOSE 2019-11-25 16:44:00 [facility] TTE COMPLETE, WO 2019-11-25 13:45:00 Ivon [facility] ospital CONTRAST, W DOPPLER ([id number]) POC GLUCOSE 2019-11-25 12:37:00 [facility] HC COMPLETE BLD COUNT 2019-11-25 09:45:00 Stuart Del Valle [facility] W/AUTO DIFF POC GLUCOSE 2019-11-25 06:41:00 [facility] TROPONIN 2019-11-25 03:20:00 Ty, Ania Ambriz Ho spital Chrissy URINE CULTURE 2019-11-25 03:10:00 Ty, [facility] Tenriism Ho spital Chrissy URINALYSIS SCREEN AND 2019-11-25 03:10:00 Ty, [facility] MICROSCOPY, WITH REFLEX Chrissy TO CULTURE CT CHEST WO CONTRAST 2019-11-25 02:23:48 [facility] POC GLUCOSE 2019-11-25 01:49:00 [facility] POC GLUCOSE 2019-11-24 23:54:00 [facility] TROPONIN 2019-11-24 23:10:00 Ty, Ania Ambriz Ho spital Chrissy HEMOGLOBIN A1C 2019-11-24 23:10:00 [facility] COMPREHENSIVE METABOLIC 2019-11-24 23:10:00 [facility] PANEL MAGNESIUM LEVEL 2019-11-24 23:10:00 [facility] PHOSPHORUS LEVEL 2019-11-24 23:10:00 [facility] ESTIMATED GFR 2019-11-24 23:10:00 Julissa Frazier [facility] COVID-19 QUALITATIVE 2019-11-24 22:45:00 Ty, [facility] RT-PCR Chrissy ECG ED PRELIMINARY 2019-11-24 20:56:11 Ty, [facility] INTERPRETATION Chrissy ECG 12-LEAD 2019-11-24 20:54:14 Ty, [facility] spital Chrissy HC COMPLETE BLD COUNT 2019-11-24 20:38:00 Ty, [facility] W/AUTO DIFF Chrissy PROTHROMBIN TIME WITH INR 2019-11-24 20:38:00 Ty, [facility] Chrissy PARTIAL THROMBOPLASTIN 2019-11-24 20:38:00 Ty, [facility] TIME (PTT) Chrissy COMPREHENSIVE METABOLIC 2019-11-24 20:38:00 Ty, [facility] PANEL Chrissy TROPONIN 2019-11-24 20:38:00 Ty, [facility] Ho spital Chrissy LIPASE LEVEL 2019-11-24 20:38:00 Ty, [facility] spital Chrissy B NATRIURETIC PEPTIDE 2019-11-24 20:38:00 Ty, [facility] Chrissy ESTIMATED GFR 2019-11-24 20:38:00 Ty, [facility] spital Chrissy XR CHEST 1 VW PORTABLE 2019-11-24 20:37:00 Ty, [facility] Chrissy Plan of Care Planned Activity Planned Date Details Comments Source Future Scheduled 2021-05-23 COVID-19 VACCINE (1) [facility] Test 13:49:23 [code = COVID-19 VACCINE (1)] Future Scheduled 2021-05-23 65+ PNEUMOCOCCAL [facility] Test 13:49:23 VACCINE (1 of 4 - PCV13) [code = 65+ PNEUMOCOCCAL VACCINE (1 of 4 - PCV13)] Future Scheduled 2021-05-23 Hepatitis C screening [facility] Test 13:49:23 (procedure) [code = 627358948] Future Scheduled 2021-05-23 COLONOSCOPY SCREENING [facility] Test 13:49:23 [code = COLONOSCOPY SCREENING] Future Scheduled 2021-05-23 SHINGLES VACCINES (#1) [facility] Test 13:49:23 [code = SHINGLES VACCINES (#1)] Future Scheduled 2021-05-23 INFLUENZA VACCINE [facility] Test 13:49:23 [code = INFLUENZA VACCINE] Future Scheduled 2021-05-23 COVID-19 VACCINE (1) [facility] Test 13:49:23 [code = COVID-19 VACCINE (1)] Future Scheduled 2021-05-23 65+ [facility] 13:49:23 VACCINE (1 of 4 - PCV13) [code = 65+ PNEUMOCOCCAL VACCINE (1 of 4 - PCV13)] Future Scheduled 2021-05-23 Hepatitis C screening [facility] Test 13:49:23 (procedure) [code = 798961592] Future Scheduled 2021-05-23 COLONOSCOPY SCREENING [facility] Test 13:49:23 [code = COLONOSCOPY SCREENING] Future Scheduled 2021-05-23 SHINGLES VACCINES (#1) [facility] Test 13:49:23 [code = SHINGLES VACCINES (#1)] Future Scheduled 2021-05-23 INFLUENZA VACCINE Method [facility] Test 13:49:23 [code = INFLUENZA VACCINE] Future [...] PPSV23)] Future Scheduled 1957 COVID-19 Vaccine (1) [facility] Test 00:00:00 [code = COVID-19 Vaccine (1)] Future Scheduled 1950 COVID-19 Vaccine (1) [facility] Test 00:00:00 [code = COVID-19 Vaccine (1)] Future Scheduled 1950 COVID-19 Vaccine (1) [facility] Test 00:00:00 [code = COVID-19 Vaccine (1)] Future Scheduled 65+ [facility]OCOCCAL [facility] VACCINE (1 of 4 - PCV13) [code = 65+ PNEUMOCOCCAL VACCINE (1 of 4 - PCV13)] Future Scheduled DIABETES: RETINAL EYE [facility] Test EXAM [code = DIABETES: RETINAL EYE EXAM] Future Scheduled DIABETIC FOOT EXAM [facility] Test [code = DIABETIC FOOT EXAM] Future Scheduled COVID-19 VACCINE (1) [facility] Test [code = COVID-19 VACCINE (1)] Future Scheduled Hepatitis C screening [facility] Test (procedure) [code = 065332890] Future Scheduled COLONOSCOPY SCREENING [facility] Test [code = COLONOSCOPY SCREENING] Future Scheduled SHINGLES VACCINES (#1) M [facility] Test [code = SHINGLES VACCINES (#1)] Future Scheduled INFLUENZA VACCINE [facility] Test [code = INFLUENZA VACCINE] Encounters Start End Encounter Admission Attending Care Care Encounter Source Date/Time Date/Time Type Type Clinicians Facility Department ID 2020-04-17 2020-04-17 Emergency [facility] [id number] 16:56:00 20:05:00 Alfredo [place] 350.1.13.10 [place] 4.2.7.2.686 [place] [id number] 08 2020-04-17 2020-04-17 Emergency [facility] [id number] [facility] 16:56:00 20:05:00 Alfredo [place] 350.1.13.10 i ty of [place] 4.2.7.2.686 [facility] [id number] [facility] [address] 2020-04-17 2020-04-17 Emergency X [facility] ERT [id number] [facility] 16:56:00 16:56:00 ity of [facility] 2019-11-29 2019-12-08 Inpatient [facility] [id number] [place] 01:58:40 22:45:00 r Kenneth 02 l [facility] 2019-11-29 2019-12-08 Inpatient E ROSAMARIA, [facility] [address] [facility] 02:11:00 17:45:00 DAMARI 2019-11-24 2019-11-27 [facility] Meera Butts 1.2.840. [id number] Methodi 15:13:48 20:07:00 Encounter Juan Jack [id number] Julissa Frazier 3.430.2.7 Hospita .[id number] l .8 2019-11-24 2019-11-24 Travel 1.2.840.1 [id number] Methodi 00:00:00 00:00:[address] 3.430.2.7 0.2.7.3.698 Ho spita .3.320821 084.8 l .8 2017-07-01 2017-07-01 Emergency [facility] [id number] [place] 01:48:00 01:48:00 Health 2015-03-15 2015-03-15 [facility] [id number] Memoria 04:35:00 14:30:00 Emergency r Kenneth 01 l [facility] 2012-12-23 2012-12-23 Emergency [facility] [id number] Mem[place] 03:26:00 04:58:00 r [facility] 00 l [place] Results Test Test Test Results Result Source [...] APPEARANCE (test code = Hazy Clear A 4621085896) COLOR (test code = 8427184172) Yellow Yellow PH (test code = 1898861532) 4.8-8.0 SP GRAVITY (test code = 1.003-1.030 5031377823) GLU U QUAL (test code = Normal Normal 3435695553) BLOOD (test code = 1331625180) 1+ Negative A KETONES (test code = 6525886192) Negative Negative PROTEIN (test code = 2887-8) Negative Negative UROBILIN (test code = Normal Normal 8144148441) BILIRUBIN (test code = Negative Negative 7301502943) NITRITE (test code = 3651846560) Negative Negative LEUK JIMENA (test code = 500/uL Negative A 6024411052) RBC/HPF (test code = 8878801936) See_Comment H [Automated message] The system which ge nerated this result transmit casey reference range: 0 - 3 HP F. The reference range was not used to interpret th is result as normal/abnormal . WBC/HPF (test code = 0602545264) See_Comment H [Automated message] The system which ge nerated this result transmit casey reference range: 0 - 5 HP F. The reference range was not used to interpret th is result as normal/abnormal . BACTERIA (test code = Few Negative A 4915224011) MUCOUS (test code = 9043343637) Slight Negative LPF A SQ EPITH (test code = <1 HPF 1787873851) HYAL CAST (test code = See_Comment H [Aut omated message] The 0884369270) system which [employer] nerated this result transmit casey reference range: <=2 LPF. The reference range was not u sed to interpret this result as normal/abnormal . Lab Interpretation (test code = Abnormal 31286-7) [facility] [id number] 00:30:00 Test Item Value Reference Range Interpretation Comments NA (test code = 143 mmol/L 135-145 9604705721) K (test code = 4.4 mmol/L 3.5-5 2084831943) CL (test code = 106 mmol/L 98-108 8942200062) CO2 TOTAL (test code = 29 mmol/L 23-31 4159166626) AGAP (test code = 2-16 0189014818) BUN (test code = 17 mg/dL 7-23 5219570748) GLUCOSE (test code = 115 mg/dL 70-110 H 1424049466) CREATININE (test code = 1.30 mg/dL 0.6-1.25 H 6016264270) TOTAL BILI (test code = 0.8 mg/dL 0.1-1.5 6093821451) CALCIUM (test code = 9.7 mg/dL 8.6-10.6 7454818980) T PROTEIN (test code = 7.8 g/dL 6.3-8.2 6807668315) ALBUMIN (test code = 4.3 g/dL 3.5-5 9386346642) ALK PHOS (test code = 109 U/L 34-122 2490817478) ALTv (test code = 9 U/L 5-50 1742-6) AST(SGOT) (test code = 19 U/L 13-40 9315004269) eGFR Calculation mL/min/1.73m2 (Non-) (test code = 8584285601) eGFR Calculation mL/min/1.73m2 () (test code = 5334033923) HATTIE (test code = HATTIE) Association of [...] tests). Lab Interpretation Abnormal (test code = 74730-4) [facility], [id number] 00:30:00 Test Item Value Reference Range Interpretation Comments LIPASE (test code = 2839373309) 43 U/L 0-220 Lab Interpretation (test code = Normal 55844-4) [facility] with Yaoapifwtufp4708-69-61 00:17:00 Test Item Value Reference Range Interpretation Comments WBC (test code = See_Comment [Automated 3546-2) message] The sy stem which generated this result transmitted reference range : 4.20 - 10.70 10*3/?L. The reference range was not used to interpret this result as normal/abnormal . RBC (test code = See_Comment H [Automated 114-8) message] The sy stem which generated this [...] (test code = 33.8 fL 38.5-51.6 L 41723-4) RDW-CV (test code = 15.9 % 12.1-15.4 H 788-0) PLT (test code = See_Comment L [Automated 777-3) message] The sy stem which generated this result transmitted reference range : 150 - 328 10*3/ ?L. The reference r yi was not used to interpret this result as normal/abnormal . MPV (test code = 10.3 fL 9.8-13 75215-4) NRBC/100 WBC (test See_Comment [Automat ed code = 7042847139) message] The system which generated this result transmitted reference range : 0.0 - 10.0 /100 WBCs. The refer ence range was not u sed to interpret th is result as normal/abnormal . NRBC x10^3 (test code <0.01 See_Comment [Auto mated = 9980383677) message] The s ystem which generated this result transmitted reference range : 10*3/?L. The reference range was not used to interpret this result as normal/abnormal . GRAN MAT (NEUT) % 68.0 % (test code = 770-8) IMM GRAN % (test code 0.40 % = 9683622887) LYMPH % (test code = 20.0 % 736-9) MONO % (test code = 8.9 % 5905-5) EOS % (test code = 2.1 % 713-8) BASO % (test code = 0.6 % 706-2) GRAN MAT x10^3(ANC) 3.29 10*3/uL 1.99-6.95 (test code = 1955984210) IMM GRAN x10^3 (test <0.03 0-0.06 code = 9764832290) LYMPH x10^3 (test code 0.97 10*3/uL 1.09-3.23 L = 731-0) MONO x10^3 (test code 0.43 10*3/uL 0.36-1.02 = 742-7) EOS x10^3 (test code = 0.10 10*3/uL 0.06-0.53 711-2) BASO x10^3 (test code 0.03 10*3/uL 0.01-0.09 = 704-7) Lab Interpretation Abnormal (test code = 81332-0) [facility]2020-08-15 18:37:00 Test Item Value Reference Range Interpretation Comments Coronavirus (COVID-19) Not Detected DYLAN (test code = *NA*(12/05/19 1:37 PM) Coronavirus (COVID-19) DYLAN) [facility]FN[facility]12[facility] 17:53:00 Test Item Value Reference Range Interpretation Comments Coronavirus (COVID-19) Not Detected DYLAN (test code = *NA*(12/04/19 12:53 Coronavirus (COVID-19) PM) DYLAN) [facility]2020-08-12 09:50:00 Test Item Value Reference Range Interpretation Comments Glucose Lvl (test code = Glucose Lvl) 85 70-99 [facility]2020-08-12 09:50:00 Test Item Value Reference Range Interpretation Comments BUN (test code = BUN) 18 - [facility]2020-08-12 09:50:00 Test Item Value Reference Range Interpretation Comments Creatinine Lvl (test code = Creatinine 1.50 0.50-1.40 Lvl) [facility]2020-08-12 09:50:00 Test Item Value Reference Range Interpretation Comments Sodium Lvl (test code = Sodium Lvl) 146 135-145 [facility]2020-08-12 09:50:00 Test Item Value Reference Range Interpretation Comments Potassium Lvl (test code = Potassium 4.3 3.5-5.1 Lvl) [facility]2020-08-12 09:50:00 Test Item Value Reference Range Interpretation Comments Chloride Lvl (test code = Chloride Lvl) 112 95-109 [place] 736430-08-12 09:50:00 Test Item Value Reference Range Interpretation Comments CO2 (test code = CO2) 26 24-32 [place] 736430-08-12 09:50:00 Test Item Value Reference Range Interpretation Comments Calcium Lvl (test code = Calcium Lvl) 8.5 8.5-10.5 [place] 736430-08-12 09:50:00 Test Item Value Reference Range Interpretation Comments AGAP (test code = AGAP) 12.3 10.0-20.0 [facility]2020-08-12 09:50:00 Test Item Value Reference Range Interpretation Comments eGFR (test code = eGFR) 52 [facility]ymvpviRHLFDEGFFM3302-10-12 09:50:00 Test Item Value Reference Range Interpretation Comments Segs (test code = Segs) 47.5 45.0-75.0 [facility] HospitalRwiaffyAOGHLBJUQW3629-52-58 09:50:00 Test Item Value Reference Range Interpretation Comments Lymphocytes (test code = Lymphocytes) 35.6 20.0-40.0 [facility] HospitalYhbcuhaJHYNVWXBMI9955-99-36 09:50:00 Test Item Value Reference Range Interpretation Comments Monocytes (test code = Monocytes) 13.0 2.0-12.0 [facility] HospitalUvbhbqtKSBRUXYAEZ5627-19-81 09:50:00 Test Item Value Reference Range Interpretation Comments Eosinophils (test code = 2.9 See_Comment [A utomated message] The Eosinophils) system which ge nerated this result tra nsmitted reference range : <=4.0. The reference r yi was not used to int erpret this result as normal/abnormal . [facility] HospitalXvdczbsXWFMZUWADR3936-39-42 09:50:00 Test Item Value Reference Range Interpretation Comments Basophils (test code = 1.0 See_Comment [Aut omated message] The Basophils) system which ge nerated this result tra nsmitted reference range : <=1.0. The reference r yi was not used to int erpret this result as normal/abnormal . [facility] HospitalCfbgoglUCKWLKGDEW2020-60-47 09:50:00 Test Item Value Reference Range Interpretation Comments Neutrophils # (test code = Neutrophils 3.1 1.5-8.1 #) [place] 652140-08-12 09:50:00 Test Item Value Reference Range Interpretation Comments Lymphocytes # (test code = Lymphocytes 2.4 1.0-5.5 #) [place] [address]-08-12 09:50:00 Test Item Value Reference Range Interpretation Comments Monocytes # (test code 0.9 See_Comment [Aut omated message] The = Monocytes #) system which generated this result tra nsmitted reference range : <=0.8. The reference r yi was not used to int erpret this result as normal/abnormal . [facility] HospitalFdjkfmaLKFNLMFATK5028-86-72 09:50:00 Test Item Value Reference Range Interpretation Comments Eosinophils # (test code 0.2 See_Comment [A utomated message] The = Eosinophils #) system whic h generated this result tra nsmitted reference range : <=0.5. The reference r yi was not used to int erpret this result as normal/abnormal . [facility] HospitalXpduqpaFBZYSRTGNF9399-54-66 09:50:00 Test Item Value Reference Range Interpretation Comments Basophils # (test code 0.1 See_Comment [Aut omated message] The = Basophils #) system which generated this result tra nsmitted reference range : <=0.2. The reference r yi was not used to int erpret this result as normal/abnormal . [facility] HospitalFckafskRGNQCVXIWX5290-55-71 09:50:00 Test Item Value Reference Range Interpretation Comments Microcyte (test code = 3+ *NA*(12/02/19 4:50 Microcyte) AM) [facility] HospitalAdpwuruPRZGJHCNEG6541-34-97 09:50:00 Test Item Value Reference Range Interpretation Comments Hypochrom (test code = 1+ (12/02/19 4:50 AM) Hypochrom) [facility] HospitalJgibtknLFUPHVJZLT7826-70-23 09:50:00 Test Item Value Reference Range Interpretation Comments Target Cell (test code Moderate *ABN*(12/02/19 = Target Cell) 4:50 AM) [facility] HospitalPzuiosdPBOQCFQHYG6978-73-33 09:50:00 Test Item Value Reference Range Interpretation Comments Large Plt (test code Moderate *ABN*(12/02/19 = Large Plt) 4:50 AM) [facility] HospitalSuhkfbqFQQZTKQRVQ1681-88-61 09:50:00 Test Item Value Reference Range Interpretation Comments WBC (test code = WBC) 6.6 3.7-10.4 [place] 652140-08-12 09:50:00 Test Item Value Reference Range Interpretation Comments RBC (test code = RBC) 5.85 4.70-6.10 [facility] HospitalPgwmdtrUAKTRSMPNG6580-13-40 09:50:00 Test Item Value Reference Range Interpretation Comments Hgb (test code = Hgb) 11.4 14.0-18.0 [facility] HospitalVggilfnTTRPHPLAPA2915-25-67 09:50:00 Test Item Value Reference Range Interpretation Comments Hct (test code = Hct) 36.3 42.0-54.0 [place] [address]-08-12 09:50:00 Test Item Value Reference Range Interpretation Comments MCV (test code = MCV) 62.0 80.0-94.0 [place] [address]-08-12 09:50:00 Test Item Value Reference Range Interpretation Comments MCH (test code = MCH) 19.5 pg 27.0-31.0 [place] 652140-08-12 09:50:00 Test Item Value Reference Range Interpretation Comments MCHC (test code = MCHC) 31.4 32.0-36.0 [place] [address]-08-12 09:50:00 Test Item Value Reference Range Interpretation Comments RDW (test code = RDW) 16.3 11.5-14.5 [place] [address]-08-12 09:50:00 Test Item Value Reference Range Interpretation Comments Platelet (test code = Platelet) 171 133-450 [facility] HospitalAnhmlxfWAKPNTAUGI9121-61-85 09:50:00 Test Item Value Reference Range Interpretation Comments MPV (test code = MPV) 9.0 7.4-10.4 [facility]2020-08-10 11:25:00 Test Item Value Reference Range Interpretation Comments Glucose Lvl (test code = Glucose Lvl) 90 70-99 [facility]2020-08-10 11:25:00 Test Item Value Reference Range Interpretation Comments BUN (test code = BUN) 25 7-22 [facility]2020-08-10 11:25:00 Test Item Value Reference Range Interpretation Comments Creatinine Lvl (test code = Creatinine 1.80 0.50-1.40 Lvl) [facility]2020-08-10 11:25:00 Test Item Value Reference Range Interpretation Comments Sodium Lvl (test code = Sodium Lvl) 145 135-145 [facility]2020-08-10 11:25:00 Test Item Value Reference Range Interpretation Comments Potassium Lvl (test code = Potassium 4.5 3.5-5.1 Lvl) [facility]2020-08-10 11:25:00 Test Item Value Reference Range Interpretation Comments Chloride Lvl (test code = Chloride Lvl) 113 95-109 [place] 736430-08-10 11:25:00 Test Item Value Reference Range Interpretation Comments CO2 (test code = CO2) 24 24-32 [facility]2020-08-10 11:25:00 Test Item Value Reference Range Interpretation Comments Calcium Lvl (test code = Calcium Lvl) 8.7 8.5-10.5 [facility]2020-08-10 11:25:00 Test Item Value Reference Range Interpretation Comments AGAP (test code = AGAP) 12.5 10.0-20.0 [facility]2020-08-10 11:25:00 Test Item Value Reference Range Interpretation Comments eGFR (test code = eGFR) 42 [facility]tuwmwjWRAAHMDMEM9681-26-04 20:16:00 Test Item Value Reference Range Interpretation Comments Coronavirus (COVID-19) Detected DYLAN (test code = 5*ABN*(11/29/19 3:16 Coronavirus (COVID-19) PM) DYLAN) [facility] [id number] 15:19:00 Test Item Value Reference Range Interpretation Comments Iron (test code = Iron) 73 50-180 [facility] [id number] 15:19:00 Test Item Value Reference Range Interpretation Comments TIBC (test code = TIBC) 216 250-425 [facility] [id number] 15:19:00 Test Item Value Reference Range Interpretation Comments % Satur Fe (test code = % Satur Fe) 34 20-48 [facility] AND [id number] 14:58:00 Test Item Value Reference Range Interpretation Comments UA Turbidity (test code Slight *ABN*(11/29/19 = UA Turbidity) 9:58 AM) [facility] AND [id number] 14:58:00 Test Item Value Reference Range Interpretation Comments UA Spec Grav (test code = UA Spec 1.015 1 Grav) [facility] AND [id number] 14:58:00 Test Item Value Reference Range Interpretation Comments UA pH (test code = UA pH) 5.0 1 5.0-8.0 [facility] AND [id number] 14:58:00 Test Item Value Reference Range Interpretation Comments UA Protein (test code = UA Negative mg/dL Protein) [facility] AND [id number] 14:58:00 Test Item Value Reference Range Interpretation Comments UA Glucose (test code = UA Negative mg/dL Glucose) [facility] [id number] 14:58:00 Test Item Value Reference Range Interpretation Comments UA Ketones (test code = UA Negative mg/dL Ketones) [facility] AND [id number] 14:58:00 Test Item Value Reference Range Interpretation Comments UA Bili (test code = Negative *NA*(11/29/19 UA Bili) 9:58 AM) [facility] AND [id number] 14:58:00 Test Item Value Reference Range Interpretation Comments UA Blood (test code = Small *ABN*(11/29/19 UA Blood) 9:58 AM) [facility] AND [id number] 14:58:00 Test Item Value Reference Range Interpretation Comments UA Nitrite (test code Negative (11/29/19 9:58 = UA Nitrite) AM) [facility] AND [id number] 14:58:00 Test Item Value Reference Range Interpretation Comments UA Leuk Est (test Negative (11/29/19 9:58 code = UA Leuk Est) AM) [facility] AND [id number] 14:58:00 Test Item Value Reference Range Interpretation Comments UA Sq Epi (test code = UA Sq Occasional /LPF Epi) [facility] AND [id number] 14:58:00 Test Item Value Reference Range Interpretation Comments UA RBC (test code = 2 See_Comment [Automa casey message] The UA RBC) system which ge nerated this result transmit casey reference range : <=2. The reference range was not used to interpr et this result as thom l/abnormal. [facility] AND [id number] 14:58:00 Test Item Value Reference Range Interpretation Comments UA Mucus (test code = UA Mucus) Few /LPF [facility] AND [id number] 14:58:00 Test Item Value Reference Range Interpretation Comments UA Hyal Cast (test 9 See_Comment [Automat ed message] The code = UA Hyal Cast) system which generated this result transmit casey reference range : <=2. The reference range was not used to interpr et this result as thom l/abnormal. [facility] [id number] 14:58:00 Test Item Value Reference Range Interpretation Comments UA Color (test code = UA Color) Yellow [facility] AND [id number] 14:58:00 Test Item Value Reference Range Interpretation Comments UA Urobilinogen (test code = UA no gt 0.1-1.0 Urobilinogen) [facility] [id number] 13:13:00 Test Item Value Reference Range Interpretation Comments Troponin-I (test code 0.04 See_Comment [Auto mated message] The = Troponin-I) system which g enerated this result transmit casey reference range : <=0.40. The reference r yi was not used to interpr et this result as thom l/abnormal. [facility] [id number] 09:43:00 Test Item Value Reference Range Interpretation Comments Troponin-I (test code 0.04 See_Comment [Auto mated message] The = Troponin-I) system which g enerated this result transmit casey reference range : <=0.40. The reference r yi was not used to interpr et this result as thom l/abnormal. [facility] [employer] [id number] 09:43:00 Test Item Value Reference Range Interpretation Comments Glucose Lvl (test code = Glucose Lvl) 99 70-99 [facility] [id number] 09:43:00 Test Item Value Reference Range Interpretation Comments BUN (test code = BUN) 29 7-22 [facility] [id number] 09:43:00 Test Item Value Reference Range Interpretation Comments Creatinine Lvl (test code = Creatinine 2.90 0.50-1.40 Lvl) [facility] [id number] 09:43:00 Test Item Value Reference Range Interpretation Comments Sodium Lvl (test code = Sodium Lvl) 141 135-145 [facility] [employer] [id number] 09:43:00 Test Item Value Reference Range Interpretation Comments Potassium Lvl (test code = Potassium 4.5 3.5-5.1 Lvl) [facility] [id number] 09:43:00 Test Item Value Reference Range Interpretation Comments Chloride Lvl (test code = Chloride Lvl) 107 95-109 [facility] [id number] 09:43:00 Test Item Value Reference Range Interpretation Comments CO2 (test code = CO2) 26 24-32 [facility] [employer] [id number] 09:43:00 Test Item Value Reference Range Interpretation Comments Calcium Lvl (test code = Calcium Lvl) 9.4 8.5-10.5 [facility] [id number] 09:43:00 Test Item Value Reference Range Interpretation Comments Total Protein (test code = Total 8.0 6.4-8.4 Protein) [facility] [id number] 09:43:00 Test Item Value Reference Range Interpretation Comments Albumin Lvl (test code = Albumin Lvl) 3.5 3.5-5.0 [facility] [employer] [id number] 09:43:00 Test Item Value Reference Range Interpretation Comments ALT (test code = ALT) 34 See_Comment [Auto mated message] The system which ge nerated this result transmit casey reference range : <=65. The reference range was not used to interpr et this result as thom l/abnormal. [facility] [employer] [id number] 09:43:00 Test Item Value Reference Range Interpretation Comments AST (test code = AST) 20 See_Comment [Auto mated message] The system which ge nerated this result transmit casey reference range : <=37. The reference range was not used to interpr et this result as thom l/abnormal. [facility] [employer] [id number] 09:43:00 Test Item Value Reference Range Interpretation Comments Alk Phos (test code = Alk Phos) 84 39-136 [facility] [employer] [id number] 09:43:00 Test Item Value Reference Range Interpretation Comments Bili Total (test code = Bili Total) 0.7 0.2-1.3 [facility] [employer] [id number] 09:43:00 Test Item Value Reference Range Interpretation Comments AGAP (test code = AGAP) 12.5 10.0-20.0 [facility] [employer] [id number] 09:43:00 Test Item Value Reference Range Interpretation Comments B/C Ratio (test code = B/C Ratio) 10 1 6-25 [facility] [employer] [id number] 09:43:00 Test Item Value Reference Range Interpretation Comments Globulin (test code = Globulin) 4.5 2.7-4.2 [place] [address]-08-09 09:43:00 Test Item Value Reference Range Interpretation Comments A/G Ratio (test code = A/G Ratio) 0.8 1 0.7-1.6 [place] [address]-08-09 09:43:00 Test Item Value Reference Range Interpretation Comments eGFR (test code = eGFR) 24 [place] 736430-08-09 09:43:00 Test Item Value Reference Range Interpretation Comments Magnesium Lvl (test code = Magnesium 2.1 1.8-2.4 Lvl) [place] [address]-08-09 09:43:00 Test Item Value Reference Range Interpretation Comments Phosphorus (test code = Phosphorus) 4.3 2.5-4.5 [place] [address]-08-09 09:43:00 Test Item Value Reference Range Interpretation Comments Procalcitonin Lvl (test 0.28 See_Comment [Au tomated message] code = Procalcitonin Lvl) Th e system which generated this result transmitted ref erence range: <=0.10. The reference range was not used to interpr et this result as normal/abnormal . [place] 736430-08-09 09:43:00 Test Item Value Reference Range Interpretation Comments Lactic Acid Lvl (test code = Lactic 1.5 0.5-2.2 Acid Lvl) [place] [address]-08-09 09:43:00 Test Item Value Reference Range Interpretation Comments Neutrophils # (test code = Neutrophils 8.0 1.5-8.1 #) [place] 652140-08-09 09:43:00 Test Item Value Reference Range Interpretation Comments Lymphocytes # (test code = Lymphocytes 1.4 1.0-5.5 #) [place] 74838-08-09 09:43:00 Test Item Value Reference Range Interpretation Comments Monocytes # (test code 0.8 See_Comment [Aut omated message] The = Monocytes #) system which generated this result tra nsmitted reference range : <=0.8. The reference r yi was not used to int erpret this result as normal/abnormal . [place] 7[address]38-08-09 09:43:00 Test Item Value Reference Range Interpretation Comments Eosinophils # (test code 0.3 See_Comment [A utomated message] The = Eosinophils #) system whic h generated this result tra nsmitted reference range : <=0.5. The reference r yi was not used to int erpret this result as normal/abnormal . [facility]KocaxutAUPLQUALRF7747-13-78 09:43:00 Test Item Value Reference Range Interpretation Comments Segs (test code = Segs) 76.0 45.0-75.0 [facility]OlvohrnJODQGVHZFP7443-87-58 09:43:00 Test Item Value Reference Range Interpretation Comments Bands (test code = 0.0 See_Comment [Automat ed message] The Bands) system which ge nerated this result transmit casey reference range : <=11.0. The reference r yi was not used to interpr et this result as thom l/abnormal. [facility] HospitalYrvqdpkSUWHMQGCDA1451-08-95 09:43:00 Test Item Value Reference Range Interpretation Comments Lymphocytes (test code = Lymphocytes) 12.0 20.0-40.0 [facility] HospitalUtdmwmvDUCVYVHJZM6453-37-52 09:43:00 Test Item Value Reference Range Interpretation Comments Monocytes (test code = Monocytes) 8.0 2.0-12.0 [facility] HospitalSyezouiTYHHMOPVZE2861-58-26 09:43:00 Test Item Value Reference Range Interpretation Comments Eosinophils (test code = 3.0 See_Comment [A utomated message] The Eosinophils) system which ge nerated this result tra nsmitted reference range : <=4.0. The reference r yi was not used to int erpret this result as normal/abnormal . [facility] HospitalKvuyjjhVZJLPIAWQS3816-98-61 09:43:00 Test Item Value Reference Range Interpretation Comments Atypical Lymphs (test code = Atypical 1.0 Lymphs) [facility] HospitalJgubedwPMHIKVFBOK7984-12-24 09:43:00 Test Item Value Reference Range Interpretation Comments Plt Morph (test code = Normal (11/29/19 4:43 AM) Plt Morph) [facility] HospitalSllxrfsHYIBBKQJKY4467-62-75 09:43:00 Test Item Value Reference Range Interpretation Comments Microcyte (test code = 3+ *ABN*(11/29/19 4:43 Microcyte) AM) [facility] HospitalLgguqahZKALDRMLHB9667-39-92 09:43:00 Test Item Value Reference Range Interpretation Comments Hypochrom (test code = 1+ (11/29/19 4:43 AM) Hypochrom) [facility] HospitalNbystqcADOFPNETLL1286-42-78 09:43:00 Test Item Value Reference Range Interpretation Comments Polychrom (test code = Moderate *ABN*(11/29/19 Polychrom) 4:43 AM) [facility] HospitalYwjpvudACVNDFWSGU6197-50-83 09:43:00 Test Item Value Reference Range Interpretation Comments Target Cell (test code Moderate *ABN*(11/29/19 = Target Cell) 4:43 AM) [facility] HospitalQxdzrcsXCZYNMAWPN4188-19-51 09:43:00 Test Item Value Reference Range Interpretation Comments Elliptocyte (test code = Slight *ABN*(11/29/19 Elliptocyte) 4:43 AM) [facility] HospitalFdhaskwAAVUUTDCZS4491-20-56 09:43:00 Test Item Value Reference Range Interpretation Comments WBC (test code = WBC) 10.5 3.7-10.4 [facility] HospitalHelcoutLTLSJOFZQM5661-52-50 09:43:00 Test Item Value Reference Range Interpretation Comments RBC (test code = RBC) 6.37 4.70-6.10 [facility] HospitalVvkvxqlWZPCGZUKKG5752-46-38 09:43:00 Test Item Value Reference Range Interpretation Comments Hgb (test code = Hgb) 12.2 14.0-18.0 [facility] HospitalEsjlohyARKQMQZOAW0665-54-67 09:43:00 Test Item Value Reference Range Interpretation Comments Hct (test code = Hct) 39.4 42.0-54.0 [facility] HospitalIoozzxoYCIOCBVONN6127-06-72 09:43:00 Test Item Value Reference Range Interpretation Comments MCV (test code = MCV) 61.8 80.0-94.0 [facility] HospitalSieojnwSAEQZSKGPY4190-35-19 09:43:00 Test Item Value Reference Range Interpretation Comments MCH (test code = MCH) 19.2 pg 27.0-31.0 [facility] HospitalVmufthhKYMKIXCIVI8968-40-04 09:43:00 Test Item Value Reference Range Interpretation Comments MCHC (test code = MCHC) 31.0 32.0-36.0 [facility] HospitalWfrhvqiSQFCHLZBWA2244-66-51 09:43:00 Test Item Value Reference Range Interpretation Comments RDW (test code = RDW) 16.4 11.5-14.5 [facility] HospitalNrohkllPYGQOWHSSV2424-92-88 09:43:00 Test Item Value Reference Range Interpretation Comments Platelet (test code = Platelet) 244 133-450 [facility]fynzdkXMFAIOGVRD2161-50-44 09:43:00 Test Item Value Reference Range Interpretation Comments MPV (test code = MPV) 9.9 7.4-10.4 [facility] HospitalYtlqdtzMTZNJJXGKP9803-69-45 05:59:00 Test Item Value Reference Range Interpretation Comments Coronavirus (COVID-19) Not Detected (11/29/19 DYLAN (test code = 12:59 AM) Coronavirus (COVID-19) DYLAN) [facility] HospitalCARAlta DevicesAC RYRUTRG5691-36-41 02:39:00 Test Item Value Reference Range Interpretation Comments Total CK (test code = Total CK) 130 12-191 [facility] AFEIBXX9500-89-98 02:39:00 Test Item Value Reference Range Interpretation Comments Troponin-I (test code 0.04 See_Comment [Auto mated message] The = Troponin-I) system which g enerated this result transmit casey reference range : <=0.40. The reference r iy was not used to interpr et this result as thom l/abnormal. [facility] EZDCWGD4717-06-62 02:39:00 Test Item Value Reference Range Interpretation Comments BNP (test code = BNP) 198 [facility] [employer] KGQMO8794-46-32 02:39:00 Test Item Value Reference Range Interpretation Comments Total Protein (test code = Total 8.5 6.4-8.4 Protein) [facility]Ele[facility] TABYE5020-19-54 02:39:00 Test Item Value Reference Range Interpretation Comments Albumin Lvl (test code = Albumin Lvl) 3.6 3.5-5.0 [facility] DGZGY4731-32-29 02:39:00 Test Item Value Reference Range Interpretation Comments ALT (test code = ALT) 33 See_Comment [Auto mated message] The system which ge nerated this result transmit casey reference range : <=65. The reference range was not used to interpr et this result as thom l/abnormal. [facility] [employer] GSWXW5081-14-21 02:39:00 Test Item Value Reference Range Interpretation Comments AST (test code = AST) 24 See_Comment [Auto mated message] The system which ge nerated this result transmit casey reference range : <=37. The reference range was not used to interpr et this result as thom l/abnormal. [place] 736430-08-09 02:39:00 Test Item Value Reference Range Interpretation Comments Alk Phos (test code = Alk Phos) 81 39-136 [place] 736430-08-09 02:39:00 Test Item Value Reference Range Interpretation Comments Bili Total (test code = Bili Total) 0.7 0.2-1.3 [place] 736430-08-09 02:39:00 Test Item Value Reference Range Interpretation Comments Bili Direct (test code 0.2 See_Comment [Aut omated message] The = Bili Direct) system which generated this result tra nsmitted reference range : <=0.3. The reference r yi was not used to int erpret this result as thom l/abnormal. [place] 736430-08-09 02:39:00 Test Item Value Reference Range Interpretation Comments Bili Indirect (test 0.5 See_Comment [Automa casey message] The code = Bili Indirect) system which generated this result tra nsmitted reference range : <=1.0. The reference r yi was not used to int erpret this result as normal/abnormal . [facility]2020-08-09 02:39:00 Test Item Value Reference Range Interpretation Comments Globulin (test code = Globulin) 4.9 2.7-4.2 [place] 736430-08-09 02:39:00 Test Item Value Reference Range Interpretation Comments A/G Ratio (test code = A/G Ratio) 0.7 1 0.7-1.6 [place] [address]604-08-09 02:39:00 Test Item Value Reference Range Interpretation Comments Magnesium Lvl (test code = Magnesium 2.4 1.8-2.4 Lvl) [place] 736430-08-09 02:39:00 Test Item Value Reference Range Interpretation Comments Glucose Lvl (test code = Glucose Lvl) 97 70-99 [place] 736430-08-09 02:39:00 Test Item Value Reference Range Interpretation Comments BUN (test code = BUN) 26 7-22 [place] 736430-08-09 02:39:00 Test Item Value Reference Range Interpretation Comments Creatinine Lvl (test code = Creatinine 3.40 0.50-1.40 Lvl) [facility]2020-08-09 02:39:00 Test Item Value Reference Range Interpretation Comments Sodium Lvl (test code = Sodium Lvl) 145 135-145 [place] 736430-08-09 02:39:00 Test Item Value Reference Range Interpretation Comments Potassium Lvl (test code = Potassium 4.0 3.5-5.1 Lvl) [facility]2020-08-09 02:39:00 Test Item Value Reference Range Interpretation Comments Chloride Lvl (test code = Chloride Lvl) 111 95-109 [facility]2020-08-09 02:39:00 Test Item Value Reference Range Interpretation Comments CO2 (test code = CO2) 26 24-32 [place] 736430-08-09 02:39:00 Test Item Value Reference Range Interpretation Comments Calcium Lvl (test code = Calcium Lvl) 10.4 8.5-10.5 [facility]2020-08-09 02:39:00 Test Item Value Reference Range Interpretation Comments AGAP (test code = AGAP) 12.0 10.0-20.0 [place] 736430-08-09 02:39:00 Test Item Value Reference Range Interpretation Comments eGFR (test code = eGFR) 19 [facility] HospitalAhspydpXWWEUXZVLF3064-52-69 02:39:00 Test Item Value Reference Range Interpretation Comments WBC (test code = WBC) 10.5 3.7-10.4 [place] 652140-08-09 02:39:00 Test Item Value Reference Range Interpretation Comments RBC (test code = RBC) 6.24 4.70-6.10 [place] 652140-08-09 02:39:00 Test Item Value Reference Range Interpretation Comments Hgb (test code = Hgb) 12.1 14.0-18.0 [place] [address]38-08-09 02:39:00 Test Item Value Reference Range Interpretation Comments Hct (test code = Hct) 39.8 42.0-54.0 [place] [address]38-08-09 02:39:00 Test Item Value Reference Range Interpretation Comments MCV (test code = MCV) 63.8 80.0-94.0 [place] [address]-08-09 02:39:00 Test Item Value Reference Range Interpretation Comments MCH (test code = MCH) 19.3 pg 27.0-31.0 [facility] HospitalKprelifZRQFHCZUPF1847-71-42 02:39:00 Test Item Value Reference Range Interpretation Comments MCHC (test code = MCHC) 30.3 32.0-36.0 [place] 652140-08-09 02:39:00 Test Item Value Reference Range Interpretation Comments RDW (test code = RDW) 16.5 11.5-14.5 [facility] HospitalQtntezgKSKCIBZUYU2033-49-95 02:39:00 Test Item Value Reference Range Interpretation Comments Platelet (test code = Platelet) 253 133-450 [facility] HospitalZaeevyeBXLVGOEAVL0669-42-40 02:39:00 Test Item Value Reference Range Interpretation Comments MPV (test code = MPV) 9.4 7.4-10.4 [place] 652140-08-09 02:39:00 Test Item Value Reference Range Interpretation Comments PT (test code = PT) 14.3 s 12.0-14.7 [facility] HospitalDisjspqDSITVJQYAA5785-23-36 02:39:00 Test Item Value Reference Range Interpretation Comments INR (test code = INR) 1.11 1 0.85-1.17 [place] 652140-08-09 02:39:00 Test Item Value Reference Range Interpretation Comments PTT (test code = PTT) 28.6 s 22.9-35.8 [facility] HospitalLaimohzEZWHHPQIQO3337-78-43 02:39:00 Test Item Value Reference Range Interpretation Comments Neutrophils # (test code = Neutrophils 8.4 1.5-8.1 #) [facility] HospitalEmvdkmpFRZYACGHGE1887-65-63 02:39:00 Test Item Value Reference Range Interpretation Comments Lymphocytes # (test code = Lymphocytes 1.3 1.0-5.5 #) [place] 652140-08-09 02:39:00 Test Item Value Reference Range Interpretation Comments Monocytes # (test code 0.7 See_Comment [Aut omated message] The = Monocytes #) system which generated this result tra nsmitted reference range : <=0.8. The reference r yi was not used to int erpret this result as normal/abnormal . [place] 652140-08-09 02:39:00 Test Item Value Reference Range Interpretation Comments Basophils # (test code 0.1 See_Comment [Aut omated message] The = Basophils #) system which generated this result tra nsmitted reference range : <=0.2. The reference r yi was not used to int erpret this result as normal/abnormal . [facility] HospitalCuxvjhrCRFJOVHQRT6018-46-22 02:39:00 Test Item Value Reference Range Interpretation Comments Segs (test code = Segs) 77.0 45.0-75.0 [facility] HospitalIirnlkmQDTYXVLIWP8872-67-11 02:39:00 Test Item Value Reference Range Interpretation Comments Bands (test code = 3.0 See_Comment [Automat ed message] The Bands) system which ge nerated this result transmit casey reference range : <=11.0. The reference r yi was not used to interpr et this result as thom l/abnormal. [facility] HospitalFbadoroGHQCHWJPMV9557-97-31 02:39:00 Test Item Value Reference Range Interpretation Comments Lymphocytes (test code = Lymphocytes) 12.0 20.0-40.0 [facility] HospitalVncyprxKCGDVHBHYX3924-78-09 02:39:00 Test Item Value Reference Range Interpretation Comments Monocytes (test code = Monocytes) 7.0 2.0-12.0 [facility] HospitalTflnlqrDYGHDNFDZG6216-19-52 02:39:00 Test Item Value Reference Range Interpretation Comments Basophils (test code = 1.0 See_Comment [Aut omated message] The Basophils) system which ge nerated this result tra nsmitted reference range : <=1.0. The reference r yi was not used to int erpret this result as normal/abnormal . [facility] HospitalAwlmkteVWUMPAEREW1791-60-41 02:39:00 Test Item Value Reference Range Interpretation Comments Atypical Lymphs (test code = Atypical 0.0 Lymphs) [facility] HospitalCouwwtoUQXXABWCHO2381-44-62 02:39:00 Test Item Value Reference Range Interpretation Comments Anisocyte (test code = 1+ *ABN*(11/28/19 9:39 Anisocyte) PM) [facility] HospitalEqycpxaJAPZQTTLKF7787-70-72 02:39:00 Test Item Value Reference Range Interpretation Comments Microcyte (test code = 2+ *ABN*(11/28/19 9:39 Microcyte) PM) [facility] HospitalMjlynslYFEWWHRNKJ0793-01-52 02:39:00 Test Item Value Reference Range Interpretation Comments Hypochrom (test code = 1+ (11/28/19 9:39 PM) Hypochrom) [facility] HospitalHzjblfiBQGCETMZUV5110-80-07 02:39:00 Test Item Value Reference Range Interpretation Comments Polychrom (test code = Moderate *ABN*(11/28/19 Polychrom) 9:39 PM) [facility] HospitalKmpedcuOFLQTEUFRG8557-90-66 02:39:00 Test Item Value Reference Range Interpretation Comments Target Cell (test code Moderate *ABN*(11/28/19 = Target Cell) 9:39 PM) [facility] HospitalFttmiwgWEUJTJMGWW6643-47-00 02:39:00 Test Item Value Reference Range Interpretation Comments Large Plt (test code Moderate *ABN*(11/28/19 = Large Plt) 9:39 PM) [place] [address] nszv8286-75-14 05:13:04 Test Item Value Reference Range Interpretation Comments Ventricular rate (test code = 253) Atrial rate (test code = 255) OR interval (test code = 266) QRSD interval (test code = 260) QT interval (test code = 264) QTC interval (test code = 265) P axis 1 (test code = 267) QRS axis 1 (test code = 268) T wave axis (test code = 270) EKG impression (test code = 273) [facility], (w Contrast, Strain and 3D if needed)2019-11-25 17:55:40 Test Item Value Reference Range Interpretation Comments Ao Root Diameter (test code = 2.83 cm 0953479901) AoV Area, Vmax (test code = 1.39 cm2 3033189161) AoV Area, VTI (test code = 1.58 cm2 3963545713) AoV Mean PG (test code = mmHg 7774709233) AoV Peak PG (test code = mmHg 6121375522) AoV Vmax (test code = 8108035038) 3.05 m/s AoV VTI (test code = 9275343472) 0.66 m IVS,d (test code = 2878738802) 1.38 cm IVS/LVPW,2D (test code = 7436977626) Left Atrium Dimension Anterior 4.31 cm (test code = 4354573045) LA Area d A4C (test code = 30.64 cm2 1414189570) LV,d (test code = 2553324303) 5.20 cm LV EF,2D (test code = 6817507760) 50.66 % LV,s (test code = 1855010881) 4.11 cm LVOT area (test code = 1820611509) 3.59 cm2 LVOT Diam,S (test code = 2.14 cm 9247086244) LVOT Vmax (test code = 2916176927) 1.15 m/s LVOT VTI (test code = 3669804571) 0.31 m LVPWD,d (test code = 7822997559) 1.09 cm AR Press Half Time (test code = 661.06 ms 7960674278) MV E A ratio (test code = 4051292601) E wave decelartion time (test code msec = 0446651861) MV Peak A Levon (test code = 0.96 m/s 8573286419) MV valve area p 1/2 method (test 2.63 cm2 code = 9367411039) MV Peak E Levon (test code = 0.74 m/s 5005685736) MV stenosis pressure 1/2 time (test 83.52 ms code = 1081789927) AV LVOT peak gradient (test code = mmHg 4179200367) Ao Root Diameter (test code = 2.83 cm 0429402383) MV mean gradient (test code = mmHg 4028683359) LV SYS VOL (test code = 7288833528) 74.48 ml LV DEE VOL (test code = 129.29 ml 0015868253) LV SV Teich 2D (test code = 54.81 ml 3028851589) LV Vol s Teich PSAX (test code = 74.48 ml 6839347602) MR peak grad (test code = mmHg 3909396307) MV Vmax (test code = 6243284935) 0.98 m MV VTI Tips (test code = 0.31 m 0048396461) AoV Vmn (test code = 6058829903) LV FS Teich 2D (test code = 3617828045) MV AE ratio (test code = 5457418808) AR slope (test code = 8977704550) Ar Vmax (test code = 7840457946) LV FS Cube 2D (test code = 8182602079) LVOT Vmn (test code = 2668055670) Aov area Vmn (test code = 1.29 cm2 2485307908) LA Vol d MOD A4C (test code = 113.22 ml 6253510395) LVOT mean grad (test code = mmHg 0933656288) MAX Pred HR (test code = 4049905478) 85 of MPHR (test code = 8920601308) AR DT (test code = 3986949452) msec AR pk grad (test code = 8897425272) mmHg Calc MPHR (test code = 6414450329) bpm LV SV Cube 2D (test code = 71.07 ml 3978440438) LV vol d cube 2D (test code = 140.30 ml 3276624098) LV vol s cube 2D (test code = 69.23 ml 2544095581) MV Decel slope (test code = 2.61 m/s2 0074247656) Pred Exer Dur R1 (test code = 9937523471) Pred METS R1 (test code = 3810781321) Velocity Ratio (V1/V2) (test code = 0.38 m/s 4689) EF (test code = 9867093474) 42.39 % E/A ratio (test code = 0535414684) ADD (test code = ADD) HATTIE (test code = HATTIE) [facility] [Presence] in Respiratory specimen by DYLAN with probe uboszzabe5595-18-53 05:08:24 Test Item Value Reference Range Interpretation Comments SARS-CoV-2 (COVID-19) RNA [Presence] Detected Not-Detected in Respiratory specimen by DYLAN with probe detection (test code = 97432-3) Urine pgbgvak8127-92-20 03:52:48 Test Item Value Reference Range Interpretation Comments Urine culture (test code = SEE COMMENT 9938819) [facility] Zqzaqvud9750-37-22 02:34:15EXAMINATION:CT CHEST WO CONTRAST CLINICAL HISTORY:Shortness of [...] processes. Consider isolation and appropriate laboratory testing. [facility]-[id number] [facility], [facility] Results - 11/24/2019 9:37 PM CDT [...] and noninfectious processes. Consider isolation and appropriate laboratorytesting.[facility]-[id number] Preliminary Interpretation - Not an Gsxqg3784-36-68 20:56:11Meera Butts MD 11/27/2019 8:21 [facility] [place] Preliminary Interpretation - Not an OrderPerformed by: Ania Rosas NPAuthorized by: Ania Rosas NP ECG reviewed by EDPhysician in the absence of a bus attendant: yes Interpretation: Interpretation: non-specific Rate: ECG rate: 77 ECG rate assessment: normal Rhythm: Rhythm: sinus rhythm Ectopy: Ectopy: PAC QRS: QRS axis: Normal (86) QRS intervals: NormalConduction: Conduction: normal T waves: T waves: non-specific Other findings: Other findings: prolonged qTc intervalNorth [facility] CenterXR Chest 1 Vw Kadydpqj7803-56-18 20:51:33EXAMINATION: XR CHEST 1 VW PORTABLE CLINICAL HISTORY: 74 years Male SOB COMPARISON: None. IMPRESSION: The cardiomediastinal silhouette is slightly enlarged The lungs are clear Age related changes in the osseous structures. . . [facility], [facility]iology Results 11/24/2019 3:54 PM CDT EXAMINATION: XR CHEST 1 VW PORTABLECLINICAL HISTORY: 74 years Male SOBCOMPARISON: None.IMPRESSION:The cardiomediastinal silhouette is slightly enlarged The lungs are clear Age related changes in the osseous structures...[facility] PANEL 2015-03-15 12:32:00 Test Item Value Reference Range Interpretation Comments Calcium Lvl (test code = Calcium Lvl) 8.5 8.5-10.5 [facility]2015-11-24 12:32:00 Test Item Value Reference Range Interpretation Comments eGFR (test code = eGFR) 56 [facility]2015-11-24 12:32:00 Test Item Value Reference Range Interpretation Comments CO2 (test code = CO2) 27 [facility]2015-11-24 12:32:00 Test Item Value Reference Range Interpretation Comments AGAP (test code = AGAP) 9.8 10.0-20.0 [facility]2015-11-24 12:32:00 Test Item Value Reference Range Interpretation Comments Sodium Lvl (test code = Sodium Lvl) 142 135-145 [facility]2015-11-24 12:32:00 Test Item Value Reference Range Interpretation Comments Potassium Lvl (test code = Potassium 3.8 3.5-5.1 Lvl) [facility]2015-11-24 12:32:00 Test Item Value Reference Range Interpretation Comments Chloride Lvl (test code = Chloride Lvl) 109 95-109 [facility]2015-11-24 12:32:00 Test Item Value Reference Range Interpretation Comments Glucose Lvl (test code = Glucose Lvl) 102 70-99 [facility]2015-11-24 12:32:00 Test Item Value Reference Range Interpretation Comments BUN (test code = BUN) 18 7-22 [facility]2015-11-24 12:32:00 Test Item Value Reference Range Interpretation Comments Creatinine Lvl (test code = Creatinine 1.45 0.50-1.40 Lvl) [facility]2015-11-24 09:17:00 Test Item Value Reference Range Interpretation Comments eGFR (test code = eGFR) 52 [facility]2015-11-24 09:17:00 Test Item Value Reference Range Interpretation Comments Sodium Lvl (test code = Sodium Lvl) 139 135-145 [facility]2015-11-24 09:17:00 Test Item Value Reference Range Interpretation Comments Chloride Lvl (test code = Chloride Lvl) 104 95-109 [place] 138065-11-24 09:17:00 Test Item Value Reference Range Interpretation Comments CO2 (test code = CO2) 25 24-32 [facility]2015-11-24 09:17:00 Test Item Value Reference Range Interpretation Comments Calcium Lvl (test code = Calcium Lvl) 9.0 8.5-10.5 [facility]2015-11-24 09:17:00 Test Item Value Reference Range Interpretation Comments Potassium Lvl (test code = Potassium 5.7 3.5-5.1 Lvl) [facility]2015-11-24 09:17:00 Test Item Value Reference Range Interpretation Comments Glucose Lvl (test code = Glucose Lvl) 103 70-99 [facility]2015-11-24 09:17:00 Test Item Value Reference Range Interpretation Comments BUN (test code = BUN) 21 7-22 [place] 138065-11-24 09:17:00 Test Item Value Reference Range Interpretation Comments Creatinine Lvl (test code = Creatinine 1.55 0.50-1.40 Lvl) [facility]2015-11-24 09:17:00 Test Item Value Reference Range Interpretation Comments AGAP (test code = AGAP) 15.7 10.0-20.0 [place] 337865-11-24 09:17:00 Test Item Value Reference Range Interpretation Comments Lymphocytes (test code = Lymphocytes) 29.7 20.0-40.0 [place] 337865-11-24 09:17:00 Test Item Value Reference Range Interpretation Comments Monocytes (test code = Monocytes) 9.4 2.0-12.0 [place] 337865-11-24 09:17:00 Test Item Value Reference Range Interpretation Comments Basophils (test code = 1.0 See_Comment [Aut omated message] The Basophils) system which ge nerated this result tra nsmitted reference range : <=1.0. The reference r yi was not used to int erpret this result as normal/abnormal . [place] 337865-11-24 09:17:00 Test Item Value Reference Range Interpretation Comments Eosinophils (test code = 4.6 See_Comment [A utomated message] The Eosinophils) system which ge nerated this result tra nsmitted reference range : <=4.0. The reference r yi was not used to int erpret this result as normal/abnormal . [id number] 09:17:00 Test Item Value Reference Range Interpretation Comments Lymphocytes # (test code = Lymphocytes 2.1 1.0-5.5 #) [id number] 09:17:00 Test Item Value Reference Range Interpretation Comments Segs-Bands # (test code = Segs-Bands #) 4.0 1.5-8.1 [facility] H[id number] 09:17:00 Test Item Value Reference Range Interpretation Comments Basophils # (test code 0.1 See_Comment [Aut omated message] The = Basophils #) system which generated this result tra nsmitted reference range : <=0.2. The reference r yi was not used to int erpret this result as normal/abnormal . [id number] 09:17:00 Test Item Value Reference Range Interpretation Comments Eosinophils # (test code 0.3 See_Comment [A utomated message] The = Eosinophils #) system whic h generated this result tra nsmitted reference range : <=0.5. The reference r yi was not used to int erpret this result as normal/abnormal . [facility]YveupzyNNQEIVCGIB9970-17-18 09:17:00 Test Item Value Reference Range Interpretation Comments Segs (test code = Segs) 55.3 45.0-75.0 [facility] Hospit[id number] 09:17:00 Test Item Value Reference Range Interpretation Comments Microcyte (test code = 3+ *NA*(03/15/15 Microcyte) 3:17 AM) [facility] Ho[id number] 09:17:00 Test Item Value Reference Range Interpretation Comments Monocytes # (test code 0.7 See_Comment [Aut omated message] The = Monocytes #) system which generated this result tra nsmitted reference range : <=0.8. The reference r yi was not used to int erpret this result as normal/abnormal . [facility] H[id number] 09:17:00 Test Item Value Reference Range Interpretation Comments Target Cell (test code = Target Cell) Slight [facility] HospitalZqnrxmyKLKGHLNIQG3830-48-00 09:17:00 Test Item Value Reference Range Interpretation Comments Tear Cell (test code = Tear Cell) Slight [facility] Hospit[id number] 09:17:00 Test Item Value Reference Range Interpretation Comments Polychrom (test code = Moderate Polychrom) *ABN*(03/15/15 3:17 AM) [facility] Hospit[id number] 09:17:00 Test Item Value Reference Range Interpretation Comments Large Plt (test code = Large Plt) Slight [facility] HospitalMvyngqsDLHTMRXAUY7823-20-67 09:17:00 Test Item Value Reference Range Interpretation Comments Hypochrom (test code = 1+ (03/15/15 3:17 Hypochrom) AM) [facility] HospitalOhhfohjELJZSXQPSA2323-35-96 09:17:00 Test Item Value Reference Range Interpretation Comments Anisocyte (test code = 1+ *ABN*(03/15/15 Anisocyte) 3:17 AM) [facility] Hos[id number] 09:17:00 Test Item Value Reference Range Interpretation Comments INR (test code = INR) 1.23 0.85-1.17 [facility] Ho[id number] 09:17:00 Test Item Value Reference Range Interpretation Comments PT (test code = PT) 15.8 s 12.0-14.7 [facility] HospitalDbesudgOVPPDAHBCG2684-49-01 09:17:00 Test Item Value Reference Range Interpretation Comments PTT (test code = PTT) 37.7 s 22.9-35.8 [facility] Ho[id number] 09:17:00 Test Item Value Reference Range Interpretation Comments MCH (test code = MCH) 18.8 pg 27.0-31.0 [facility] Hospit[id number] 09:17:00 Test Item Value Reference Range Interpretation Comments MCV (test code = MCV) 62.9 80.0-94.0 [facility] HospitalE[id number] 09:17:00 Test Item Value Reference Range Interpretation Comments MPV (test code = MPV) 9.0 7.4-10.4 [facility] HospitalHejeaugPXVTANVNMX1311-36-08 09:17:00 Test Item Value Reference Range Interpretation Comments Platelet (test code = Platelet) 220 133-450 [facility] HospitalKpynnrzZVKIBYCPYC9781-57-76 09:17:00 Test Item Value Reference Range Interpretation Comments RDW (test code = RDW) 18.2 11.5-14.5 [facility] HospitalCarmoutMYYSQUWUVB0526-76-25 09:17:00 Test Item Value Reference Range Interpretation Comments MCHC (test code = MCHC) 29.9 32.0-36.0 [facility] HospitalRflatweEIOSJMFCAC7501-61-46 09:17:00 Test Item Value Reference Range Interpretation Comments Hct (test code = Hct) 41.1 42.0-54.0 [facility] HospitalSapfuryDIBKIBVQYD0251-09-32 09:17:00 Test Item Value Reference Range Interpretation Comments Hgb (test code = Hgb) 12.3 14.0-18.0 [facility] Hos[id number] 09:17:00 Test Item Value Reference Range Interpretation Comments WBC (test code = WBC) 6.7 3.7-10.4 [facility] H[id number] 09:17:00 Test Item Value Reference Range Interpretation Comments RBC (test code = RBC) 6.54 4.70-6.10 [facility]"
[2021-09-23 14:57] LABS: Protime INR 1.06
--- NOTE | 2021-09-23 15:00 | RAD REPORT ---
EXAM DESCRIPTION: Syeda Single View09/23/2021 2:42 pm CLINICAL HISTORY: Shortness breath COMPARISON: May 2021 FINDINGS: Upper lobe vessels are prominent indicative of pulmonary venous hypertension. The lungs appear clear of acute infiltrate. The heart is mildly enlarged. Pacemaker leads are in cherelle ce.
[2021-09-23 15:01] LABS: Hematocrit 36.8 % (39.6-49.0); MPV 8.6 fL (7.6-11.3); RBC Red Blood Cell Count 5.95 M/uL (4.33-5.43)
[2021-09-23 15:29] LABS: ALT/SGPT 16 U/L (12-78); Absolute Lymphocytes (CBC) 1.3 K/uL (0.7-4.9); Albumin 3.2 g/dL (3.4-5.0); Alkaline Phosphatase 100 U/L (45-117); BUN Blood Urea Nitrogen 20 mg/dL (7-18); Bicarbonate 27 mmol/L (21-32); Bilirubin Total 0.3 mg/dL (0.2-1.0); Glomerular Filtration Rate 54 ml/min (=/>90); Glucose Level 91 mg/dL (74-106); Lymphocytes % 27.8 % (15.3-44.8); NT PRO-BNP 935 pg/mL (<450); Protein, Total 7.4 g/dL (6.4-8.2); Sodium Level 143 mmol/L (136-145); Troponin High Sensitivity 17.9 pg/mL (<58.9)
[2021-09-23] MEDS ORDERED: FUROSEMIDE 40 MG/4 ML VIAL ONE (15:29)
[2021-09-23] MEDS ORDERED: LEVALBUTEROL 1.25 MG/3 ML NEB ONE (15:29)
[2021-09-23 15:33] LABS: AST/SGOT 15 U/L (15-37); Bilirubin Direct < 0.1 mg/dL (0-0.2); Magnesium 2.1 mg/dL (1.8-2.4); Potassium 4.6 mmol/L (3.5-5.1)
--- NOTE | 2021-09-23 17:50 | RAD REPORT ---
EXAM DESCRIPTION: USExtrem Venous W Compress Bil09/23/2021 5:32 pm CLINICAL HISTORY: Leg swelling COMPARISON: 2020 FINDINGS: The common femoral, superficial femoral,and posterior tibial veins bilaterally are lauren sible and demonstrate augmentation. The right popliteal vein is patent. Echogenic material having the appearance of subacute thrombus is present within the left popliteal ve in. The vein is partially compressible. Doppler demonstrates good flow. Grayscale, color and spectral analysis performed on all vessels IMPRESSION: Subacute thrombus left popliteal vein
--- NOTE | 2021-09-23 18:37 | ER ---
Nurse's Notes [facility] Name: Tal Cornejo Age: 76 yrs Sex: Male : 1945 Arrival Date: 09/23/2021 Time: 13:37 Bed 13 Private MD: Diagnosis: Chest pain, unspecified;Acute embolism and thrombosis of deep veins of lower extremity Presentation: 09/23 13:47 Chief complaint: Patient states: SOB and leg swelling for 1 week. Coronavirus screen: ll1 Vaccine status: Patient reports receiving the 2nd dose of the covid vaccine. Client denies travel out of the [place] in the last 14 days. At this time, the client does not indicate any symptoms associated with coronavirus-19. Ebola Screen: Patient denies travel to an Ebola-affected area in the 21 days before illness onset. Initial Sepsis Screen: Does the patient meet any 2 criteria? No. Patient's initial sepsis screen is negative. Does the patient have a suspected source of infection? No. Patient's initial sepsis screen is negative. Risk Assessment: Do you want to hurt yourself or someone else? Patient reports no desire to harm self or others. Onset of symptoms was September 16, 2021. 13:47 Method Of Arrival: Ambulatory 1 13:47 Acuity: MARTITA 3 ll1 Triage Assessment: 13:49 General: Appears ill, Behavior is calm, cooperative, appropriate for age. Pain: Denies ll1 pain. Respiratory: Reports shortness of breath labored breathing Onset: The symptoms/episode began/occurred 1 week, the patient has moderate shortness of breath. Musculoskeletal: Reports swelling BLE. Historical: - Allergies: 13:43 No Known Drug Allergies; ll1 - PMHx: 13:43 diabetes mellitus; Hypertensive disorder; ll1 - Immunization history:: Client reports receiving the 2nd dose of the Covid vaccine. - Social history:: Smoking status: Patient denies any tobacco usage or history of. Screenin:46 Abuse screen: Denies threats or abuse. Denies injuries from another. Nutritional ph screening: No deficits noted. Tuberculosis screening: No symptoms or risk factors identified. Fall Risk None identified. Assessment: 15:00 General: Appears in no apparent distress. Behavior is calm, cooperative, appropriate ph for age, Denies fever, feeling ill. Pain: Denies pain. Neuro: Level of Consciousness is awake, alert, obeys commands, Oriented to person, place, time, situation. Cardiovascular: Reports shortness of breath, Denies chest pain, nausea, palpitations, Edema is 3+ to left midcalf, left ankle, left foot, right midcalf, right ankle and right foot Rhythm is Respiratory: Reports shortness of breath at rest Airway is patent Respiratory effort is even, unlabored, Breath sounds are clear bilaterally. GI: No signs and/or symptoms were reported involving the gastrointestinal system. Derm: Skin is intact, Skin is pink, warm \\T\\ dry. Musculoskeletal: Circulation, motion, and sensation intact. Range of motion: intact in all extremities. 15:40 Reassessment: Patient appears in no apparent distress at this time. Patient and/or ph family updated on plan of care and expected duration. Pain level reassessed. Patient is alert, oriented x 3, equal unlabored respirations, skin warm/dry/pink. Pt refused neb tx, states, " They never help w/ my shortness of breath.". 19:39 General: Appears in no apparent distress. Behavior is cooperative. Neuro: No deficits sm5 noted. Dotson Agitation-Sedation Scale (RASS): 0 - Alert and Calm Level of Consciousness is awake, alert, obeys commands, Oriented to person, place, time, situation. Cardiovascular: Capillary refill < 3 seconds Patient's skin is warm and dry. Cardiovascular: Edema is 3+ to right foot and right ankle and right midcalf and left foot and left ankle and left midcalf. Respiratory: Airway is patent Trachea midline Respiratory effort is even, unlabored. 19:45 Reassessment: attempted report to floor, nurse unavailable. 5 Vital Signs: 13:47 BP 144 / 93; Pulse 71; Resp 19; Temp 98.4; Pulse Ox 100% ; Height 6 ft. 1 in. (185.42 ll1 cm); Pain 0/10; 15:46 BP 160 / 81; Pulse 64; Resp 18; Pulse Ox 99% on R/A; ph 17:00 BP 182 / 78; Pulse 67; Resp 18; Pulse Ox 98% on R/A; ph 19:34 BP 186 / 74; Pulse 81; Resp 20; Pulse Ox 100% on R/A; sm5 Vitals: 15:47 Cardiac Rhythm Assessment Paced. ED Course: 13:37 Patient arrived in ED. rg4 13:41 Weston Hendricks PA is PHCP. jmm 13:41 Aleksey Ramsey MD is Attending Physician. jmm 13:43 Arm band placed on. ll1 13:48 Triage completed. ll1 14:17 Bruna Escoto, RN is Primary Nurse. ph 14:44 XRAY Chest (1 view) In Process Unspecified. EDMS 14:44 Basic Metabolic Panel Sent. mb7 14:44 CBC with Diff Sent. mb7 14:44 LFT's Sent. mb7 14:44 Magnesium Sent. mb7 14:44 Troponin HS Sent. mb7 14:44 NT PRO-BNP Sent. mb7 14:44 PT-INR Sent. mb7 14:44 Inserted saline lock: 20 gauge in left antecubital area, using aseptic technique. Blood mb7 collected. 14:50 Bed in low position. Call light in reach. Side rails up X 1. Door closed. Noise mb7 minimized. Warm blanket given. 14:50 EKG done, by ED staff, reviewed by Weston NAIDU. mb7 14:59 SARS-COV-2 RT PCR (Document "Date of Onset" if Symptomatic) Sent. mb7 14:59 Basic Metabolic Panel Sent. mb7 17:34 US Extremity Venous W Compression Ronaldo In Process Unspecified. EDMS 18:35 Lv Ibarra is Hospitalizing Provider. jmm 19:34 No provider procedures requiring assistance completed. Patient admitted, IV remains in ph place. Administered Medications: 15:35 Drug: Lasix (furosemide) 40 mg Route: IVP; Site: left antecubital; ph 19:34 Follow up: Response: No adverse reaction ph 19:34 Not Given (Patient Refused): Xopenex (levalbuterol) (3) 1.25 mg Inhalation once ph Medication: 15:46 VIS not applicable for this client. ph Output: 16:13 Urine: 900ml (Voided); Total: 900ml. ph 19:39 Urine: 2550ml (Voided); Total: 3450ml. sm5 21:00 Urine: 500ml (Voided); Total: 3950ml. sm5 Outcome: 18:36 Decision to Hospitalize by Provider. jmm 21:00 Admitted to Med/surg accompanied by tech, via stretcher, with chart. sm5 21:00 Condition: stable 21:00 Instructed on the need for admit. 21:00 Patient left the ED. sm5 Signatures: Dispatcher [employer] EDMS Weston Hendricks PA PA jmm Hall, Patricia, RN RN lauren Dent, Satish Michelle RN RN ll1 [place] [id number] Sneha Purvis RN RN sm5
--- NOTE | 2021-09-23 18:37 | EDPHYS ---
Physician Documentation [facility] Name: Tal Cornejo Age: 76 yrs Sex: Male : 1945 Arrival Date: 09/23/2021 Time: 13:37 Bed 13 Private MD: ED Physician Aleksey Ramsey Historical: - Allergies: 09/23 13:43 No Known Drug Allergies; ll1 - PMHx: 13:43 diabetes mellitus; Hypertensive disorder; ll1 - Immunization history:: Client reports receiving the 2nd dose of the Covid vaccine. - Social history:: Smoking status: Patient denies any tobacco usage or history of. Vital Signs: 13:47 BP 144 / 93; Pulse 71; Resp 19; Temp 98.4; Pulse Ox 100% ; Height 6 ft. 1 in. (185.42 ll1 cm); Pain 0/10; 15:46 BP 160 / 81; Pulse 64; Resp 18; Pulse Ox 99% on R/A; ph 17:00 BP 182 / 78; Pulse 67; Resp 18; Pulse Ox 98% on R/A; ph 19:34 BP 186 / 74; Pulse 81; Resp 20; Pulse Ox 100% on R/A; sm5 MDM: 14:17 Patient medically screened. dev 18:33 Data reviewed: vital signs, nurses notes. Counseling: I had a detailed discussion with caryn the patient and/or guardian regarding: the historical points, exam findings, and any diagnostic results supporting the discharge/admit diagnosis, lab results, the need for further work-up and treatment in the hospital. ED course: I discussed the patient with Alicja Gonsales whom accepted the patient to Dr. Ibarra's service. . 09/23 14:19 Order name: Basic Metabolic Panel; Complete Time: 16:13 [facility] 09/23 14:19 Order name: CBC with Diff [facility] 09/23 14:19 Order name: LFT's; Complete Time: 16:13 [facility] 09/23 14:19 Order name: Magnesium; Complete Time: 16:13 [facility] 09/23 14:19 Order name: NT PRO-BNP; Complete Time: 16:13 [facility] 09/23 14:19 Order name: PT-INR; Complete Time: 14:57 [facility] 09/23 14:19 Order name: Troponin HS; Complete Time: 16:13 [facility] 09/23 14:19 Order name: XRAY Chest (1 view); Complete Time: 15:03 [facility] 09/23 14:19 Order name: EKG; Complete Time: 14:20 [facility] 09/23 14:19 Order name: Cardiac monitoring; Complete Time: 14:48 [facility] 09/23 14:21 Order name: SARS-COV-2 RT PCR (Document "Date of Onset" if Symptomatic); Complete Time: [facility] 16:13 09/23 16:23 Order name: US Extremity Venous W Compression Ronaldo; Complete Time: 18:05 [facility] 09/23 14:19 Order name: EKG - Nurse/Tech; Complete Time: 14:48 [facility] 09/23 14:19 Order name: IV Saline Lock; Complete Time: 14:43 [facility] 09/23 14:19 Order name: Labs collected and sent; Complete Time: 14:44 [facility] 09/23 14:19 Order name: O2 Per Protocol; Complete Time: 14:22 [facility] 09/23 14:19 Order name: O2 Sat Monitoring; Complete Time: 14:23 [facility] Administered Medications: 15:35 Drug: Lasix (furosemide) 40 mg Route: IVP; Site: left antecubital; ph 19:34 Follow up: Response: No adverse reaction ph 19:34 Not Given (Patient Refused): Xopenex (levalbuterol) (3) 1.25 mg Inhalation once ph Disposition Summary: 09/23/21 18:36 Hospitalization Ordered Hospitalization Status: Observation [facility] Provider: Lv Ibarra Location: Telemetry/MedSurg (observation) [facility] Condition: Stable [facility] Problem: new [facility] Symptoms: are unchanged [facility] Bed/Room Type: Standard [facility] Room Assignment: 403(09/23/21 19:39) Diagnosis - Chest pain, unspecified [facility] - Acute embolism and thrombosis of deep veins of lower extremity [facility] Forms: - Medication Reconciliation Form [facility] - SBAR form [facility] Addendum: 10/06/2021 14:14 Co-signature as Attending Physician, Aleksey Ramsey MD I agree with the assessment and c kimball plan of care. Signatures: Dispatcher [employer] EDMandi Mcduffie RN RN mw Anderson, Corey, MD MD cha Mickail, Joel, PA PA [facility] Bruna Escoto RN RN ph Satish Ware RN RN ll1 Corrections: (The following items were deleted from the chart) 09/23 19:39 18:36 caryn garcia
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
[2021-09-23] MEDS: INSULIN -REGULAR HUMAN 50 UNIT/0.5 ML ML SQ SCH (21:23)
[2021-09-23] MEDS ORDERED: GLUCAGON 1 MG/VIAL IM PRN (21:23)
[2021-09-23] MEDS ORDERED: ACETAMINOPHEN 500 MG TAB PO PRN (21:23)
[2021-09-23] MEDS ORDERED: ONDANSETRON 4 MG/2 ML VIAL IV PRN (21:23)
[2021-09-23] MEDS ORDERED: D50W 25 GM/50 ML SYRINGE IV PRN (21:23)
[2021-09-23 21:28] VITALS: BMI 29.7
[2021-09-23] MEDS ORDERED: D10W 125 ML IV PRN (21:28)
[2021-09-23] MEDS: RIVAROXABAN 20 MG TABLET PO SCH (21:56)
[2021-09-23 22:17] LABS: Urine Appearance Clear (Clear); Urine Bilirubin Negative (Negative); Urine Blood Trace-intact (Negative); Urine Color Yellow (Yellow); Urine Glucose Negative (Negative); Urine Protein Negative (Negative); Urine Specific Gravity 1.015 (1.005-1.030); Urine Urobilinogen 0.2 mg/dL (0.2-1.0)
[2021-09-23 22:26] LABS: Urine Microscopic Reflex ORDER UMIC
[2021-09-23 22:32] LABS: Urine Bacteria <20 /HPF (NONE SEEN); Urine RBC <5 /HPF (NONE SEEN)
[2021-09-23 22:43] LABS: White Blood Cell Scan OK (OK)
[2021-09-23 22:44] LABS: Anisocytosis 1+; Blood Morphology Comment NOTED (NOT SEEN); Hypochromasia 1+; Platelet Estimate DECR; Poikilocytosis SLIGHT; Target Cells FEW
[2021-09-24 04:09] LABS: Troponin High Sensitivity 22.7 pg/mL (<58.9)
[2021-09-24] MEDS: INSULIN -REGULAR HUMAN 50 UNIT/0.5 ML ML SQ SCH ×4 (07:30→21:00)
[2021-09-24] MEDS: FUROSEMIDE 40 MG/4 ML VIAL IV SCH ×2 (09:16→16:18)
[2021-09-24] MEDS ORDERED: PNEUMOCOCCAL VACCINE 0.5 ML IMVAC ONE (12:00)
--- NOTE | 2021-09-24 12:51 | EKG ---
Test Date: 2021-09-23 Test Time: 14:45:12 Er Tech: MB MEASUREMENT RESULTS: Intervals: Rate: 60 MS: 164 QRSD: 100 QT: 444 QTc: 444 [place]: P: -9 MS: 164 QRS: -23 T: 14 INTERPRETIVE STATEMENTS: Atrial-paced rhythm Incomplete right bundle branch block Moderate voltage criteria for LVH, may be normal variant Abnormal ECG Compared to ECG 06/10/2021 11:16:27 Incomplete right bundle-branch block now present Left ventricular hypertrophy now present Sinus rhythm no longer present Atrial premature complex(es) no longer present T-wave abnormality no longer present Prolonged QT interval no longer present Electronically Signed On 09-24-21 12:50:40 CDT by Kun Garcia
--- NOTE | 2021-09-24 14:34 | CON ---
Date of Consultation: 09/24/2021 Reason For Consultation: Shortness of breath and heart failure. History Of Present Illness: A -[id number] male with history of diastolic heart failure, diab etes, hypertension, DVT, aortic valve stenosis status post aortic valve replacement recently, comes i n with shortness of breath and chest pain and lower extremity edema along with orthopnea. No nausea, vomiting, or diarrhea. No dysuria, polyuria, or urinary urgency. The patient had a heart catheteri zation recently by myself and at that time, he had mild nonobstructive coronary artery disease. Past Medical History: As outlined above. Medications: Refer to reconciliation sheet for detailed list. Allergies: NO KNOWN DRUG ALLERGIES. Family History: No premature coronary artery disease or cancer. Social History: Does not smoke or drink. Does not use any drugs. Review of Systems: All systems reviewed and they were negative except for what mentioned in HPI. Physical Examination: Vital Signs: Temperature is 98.6, pulse 72, breathing at 14, blood pressure 140/82, saturating 98% o n room air. General: Pleasant elderly male, in no apparent distress. Head and Neck: Pupils are equal, reactive to light. Intact eye movements. No JVD. No cervical lym phadenopathy. Neck is supple. Thyroid is not enlarged. Lungs: Clear to auscultation bilaterally. No rhonchi, rales, or crackles. No accessory muscle use. Heart: Regular rate and rhythm. No extra sounds. Abdomen: Soft, nontender. Bowel sounds positive. No organomegaly. No masses or hernia. No rigidi ty or rebound. Extremities: No clubbing or cyanosis. Intact pulses. Skin: No rash noted. Neurologic: Alert, awake, oriented x3. No acute focal deficits appreciated. Investigations: Troponins are negative. NT-proBNP was 935, creatinine 1.36 and hemoglobin is 11. Assessment And Recommendations: 1.Acute on chronic diastolic heart failure exacerbation. Agree with Lasix. Carefully monitor BUN, creatinine, electrolytes, and a low-salt diet and daily body weight recommended. 2.Aortic valve stenosis, status post transcatheter aortic valve replacement recently. Obtain echoca rdiogram to evaluate the aortic valve prosthesis and the heart function. 3.Deep vein thrombosis. Continue Xarelto. SR/MODL Voice ID: [id number] Report ID: [id number]
--- NOTE | 2021-09-24 15:56 | P.PN ---
Subjective Date of Service: 09/24/21 Chief Complaint: Chest Pain, CHF Patient states he is feeling much better. He was able to ambulate without shortness of breath today. No recorded fever, he is not orthopneic. Physical Examination - Vital Signs Temperature: 98.6 F Blood Pressure: 140/82 Pulse: 72 Respirations: 14 Pulse Ox (%): 98 - Physical Exam General: Alert, In no apparent distress, Oriented x3 HEENT: Mucous membr. moist/pink, Sclerae nonicteric Neck: Supple, JVD not distended Respiratory: Clear to auscultation bilaterally, Normal air movement Cardiovascular: No edema, Regular rate/rhythm, Normal S1 S2 Gastrointestinal: Normal bowel sounds, Soft and benign, Non-distended, No tenderness Musculoskeletal: No swelling Integumentary: No rashes Neurological: Normal strength at 5/5 x4 extr - Studies Laboratory Data (last 24 hrs) 09/23/21 14:41: WBC 4.5, Hgb 11.0 L, Hct 36.8 L, Plt Count 127 L Assessment And Plan - Current Problems (Diagnosis) (1) Acute on chronic diastolic (congestive) heart failure Current Visit: Yes Status: Acute (2) Chronic deep vein thrombosis of left popliteal vein Current Visit: Yes Status: Chronic (3) DM2 (diabetes mellitus, type 2) Current Visit: Yes Status: Chronic Qualifiers: Diabetes mellitus longterm insulin use: without longterm use Diabetes mellitus complication status: with kidney complications Diabetes mellitus complication detail: with chronic kidney disease Chronic kidney disease stage: stage 3 (moderate) Chronic kidney disease stage 3 subtype: stage 3a (GFR 45- 59) Qualified Code(s): E11.22 - Type 2 diabetes mellitus with diabetic chronic kidney disease; N18.31 - Chronic kidney disease, stage 3a (4) H/O aortic valve replacement Current Visit: Yes Status: Chronic (5) HTN (hypertension) Current Visit: Yes Status: Chronic Qualifiers: Hypertension type: primary hypertension Qualified Code(s): I10 - Essential (primary) hypertension - Plan Patient has improved clinically. He is not hypoxic, Continue IV Lasix Seen by cardiology-Dr. Garcia who recommend echocardiogram to assess his prosthetic aortic valve. Echocardiogram ordered. Continue Xarelto for chronic thromboembolism. Insulin sliding scale for glucose management. Monitor and correct electrolytes.
[2021-09-24] MEDS: RIVAROXABAN 20 MG TABLET PO SCH (16:18)
[2021-09-24] MEDS ORDERED: ATORVASTATIN 40 MG TAB PO SCH (21:00)
[2021-09-24] MEDS: METOPROLOL TAR 25 MG TAB PO SCH (22:45)
[2021-09-25] MEDS: INSULIN -REGULAR HUMAN 50 UNIT/0.5 ML ML SQ SCH ×2 (07:30→11:30)
[2021-09-25 08:07] VITALS: O2SAT 97
[2021-09-25] MEDS: FUROSEMIDE 40 MG/4 ML VIAL IV SCH (08:17)
[2021-09-25] MEDS: METOPROLOL TAR 25 MG TAB PO SCH (08:18)
--- NOTE | 2021-09-25 11:01 | P.DS ---
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 vein Current Visit: Yes Status: Chronic (3) DM2 (diabetes mellitus, type 2) Current Visit: Yes Status: Chronic Qualifiers: Diabetes mellitus shelter insulin use: without shelter use Diabetes mellitus complication status: with kidney complications Diabetes mellitus complication detail: with chronic kidney disease Chronic kidney disease stage: stage 3 (moderate) Chronic kidney disease stage 3 subtype: stage 3a (GFR 45- 59) Qualified Code(s): E11.22 - Type 2 diabetes mellitus with diabetic chronic kidney disease; N18.31 - Chronic kidney disease, stage 3a (4) H/O aortic valve replacement Current Visit: Yes Status: Chronic (5) HTN (hypertension) Current Visit: Yes Status: Chronic Qualifiers: Hypertension type: primary hypertension Qualified Code(s): I10 - Essential (primary) hypertension Brief History of Present Illness: Patient is a 75-year-old male with PMH of chronic diastolic CHF (last echo EF 55% in 2020), NIDDM, HTN, history of DVTs, aortic valve replacement, PM, medical noncompliance who presented to the ED with complaints of shortness of breath, chest pain, and bilateral leg swelling x 1 week. Patient reports that he takes his medications, but "not as often as he should." States that he has not taken his xarelto in at least 2 days. He has a history noncompliance, especially with his lasix. Labs significant for BNP 935, troponin HS 17.9, Cr 1.36. EKG without ST elevation. CXR showed "Upper lobe vessels are prominent indicative of pulmonary venous hypertension. The lungs appear clear of acute infiltrate. The heart is mildly enlarged. Pacemaker leads are in place." and extremity venous US showed "Subacute thrombus left popliteal vein." He was given breathing treatment and 40 mg IV lasix and hospitalized for further management. Hospital Course: Patient admitted to the medical floor and treated with IV Lasix. His shortness of breath resolved with treatment. He did not require and his SaO2 was 99% on room air. Patient ambulated without shortness of breath. He was seen and evaluated by cardiology-Dr. Garcia. Patient has apparently not followed up with cardiology since his aortic valve replacement. Echocardiogram was done which was unremarkable. Patient seen today by Dr. Oliva and deemed stable for discharge. He is given refill for his medications including Lasix and Xarelto. Vital Signs/Physical Exam: Temp Pulse Resp BP Pulse Ox 99.2 F 64 16 164/80 H 100 09/25/21 08:00 09/25/21 08:00 09/25/21 08:00 09/25/21 08:00 09/25/21 08:00 General: Alert, In no apparent distress, Oriented x3 HEENT: Mucous membr. moist/pink Neck: Supple, JVD not distended Respiratory: Clear to auscultation bilaterally, Normal air movement Cardiovascular: No edema, Regular rate/rhythm, Normal S1 S2, No murmurs Gastrointestinal: Normal bowel sounds, Soft and benign, Non-distended, No tenderness Musculoskeletal: No swelling Integumentary: No rashes Neurological: Normal strength at 5/5 x4 extr Laboratory Data at Discharge: WBC 4.5 K/uL (4.3-10.9) 09/23/21 14:41 Hgb 11.0 g/dL (13.6-17.9) L 09/23/21 14:41 Hct 36.8 % (39.6-49.0) L 09/23/21 14:41 Plt Count 127 K/uL (152-406) L 09/23/21 14:41 PT 11.7 SECONDS (9.5-12.5) 09/23/21 14:41 INR 1.06 09/23/21 14:41 Sodium 143 mmol/L (136-145) 09/23/21 14:41 Potassium 4.6 mmol/L (3.5-5.1) 09/23/21 14:41 BUN 20 mg/dL (7-18) H 09/23/21 14:41 Creatinine 1.36 mg/dL (0.55-1.3) H 09/23/21 14:41 Glucose 91 mg/dL (74-106) 09/23/21 14:41 Magnesium 2.1 mg/dL (1.8-2.4) 09/23/21 14:41 Total Bilirubin 0.3 mg/dL (0.2-1.0) 09/23/21 14:41 AST 15 U/L (15-37) 09/23/21 14:41 ALT 16 U/L (12-78) 09/23/21 14:41 Alkaline Phosphatase 100 U/L (45-117) 09/23/21 14:41 Triglycerides 58 mg/dL (<150) 09/24/21 03:19 Cholesterol 186 mg/dL (<200) 09/24/21 03:19 HDL Cholesterol 56 mg/dL (40-60) 09/24/21 03:19 Cholesterol/HDL Ratio 3.32 09/24/21 03:19 Home Medications: Atorvastatin Calcium [Lipitor] 40 mg PO BEDTIME #30 tab 04/01/21 Metoprolol Tartrate 25 mg PO BID #60 tablet 04/01/21 Furosemide [Lasix*] 40 mg PO BIDL #60 tab 09/24/21 Rivaroxaban [Xarelto] 20 mg PO DAILY #30 tablet 09/24/21 lisinopriL [Prinivil*] 5 mg PO DAILY #30 tab 09/24/21 New Medications: Furosemide [Lasix*] 40 mg PO BIDL #60 tab lisinopriL [Prinivil*] 5 mg PO DAILY #30 tab Rivaroxaban [Xarelto] 20 mg PO DAILY #30 tablet Physician Discharge Instructions: PROBLEM: (list out Acute Problems for the Current visit) chest pain and CHF exacerbation GOAL: Clear understanding of disease process INSTRUCTIONS: follow up with RONN gallardo that [facility] case management has given information for Diet: low amounts of fluid! less ever 1.5L a day, low sodium, low fat Activity: as tolerated DME bus pass to be provided by hospital cabinetmaker supervisor DME: Date Ordered: Name of Company: [employer] Services Needed: Name of Company: per case management Date or Referral: IMMUNIZATION Influenza Vaccine Indicated: Influenza Vaccine Given: Date Given: Pneumonia Vaccine Indicated: No Pneumonia Vaccine Given: No Date Given: as tolerated Followup: NONE,NONE [Primary Care Provider] - Time spent managing pt's care (in minutes): 33
--- NOTE | 2021-09-25 13:08 | PN ---
Date of Progress Note: 09/25/2021 Mr. Cornejo was admitted with [id number] diastolic congestive heart failure, chronic atrial fibr illation, aortic valve replacement, pacemaker placement, diabetes, hypertension, and DVT. He has diu resed well. Echocardiogram is pending. He is on Xarelto. Atrial fibrillation rate is well controll ed. Today, he has no rales, no pedal edema. I would continue diuresis gently and switch him to p.o. He can go home after his echocardiogram. We will see him in the office in the near future. THERESA/YEMI Voice ID: [id number] Report ID: [id number]
--- NOTE | 2021-09-25 13:59 | ECHO ---
HEIGHT: 6 ft 1 in WEIGHT: 225 lb 0 oz DATE OF STUDY: 09/25/[address]: aden ovalle 2-DIMENSIONAL: YES M.MODE: YES DOPPLER: YES COLOR FLOW: YES TDS: NO PORTABLE: YES DEFINITY: NO BUBBLE STUDY: NO DIAGNOSIS: CONGESTIVE HEART FAILURE CARDIAC HISTORY: CATHERIZATION: NO SURGERY: YES PROSTHETIC VALVE: NO PACEMAKER: YES MEASUREMENTS (cm) DIASTOLIC (NORMALS) SYSTOLIC (NORMALS) IVSd 1.2 (0.6-1.2) LA Diam 3.8 (1.9-4.0) LVEF 55% LVIDd 3.8 (3.5-5.7) LVIDs 2.7 (2.0-3.5) %FS 28% LVPWd 1.4 (0.6-1.2) Ao Diam 2.1 (2.0-3.7) 2 DIMENSIONAL ASSESSMENT: RIGHT ATRIUM: NORMAL LEFT ATRIUM: NORMAL RIGHT VENTRICLE: NORMAL LEFT VENTRICLE: LEFT VENTRICULAR HYPERTROPHY TRICUSPID VALVE: MITRAL VALVE: PULMONIC VALVE: NORMAL AORTIC VALVE: PERICARDIAL EFFUSION: NONE AORTIC ROOT: NORMAL LEFT VENTRICULAR WALL MOTION: NORMAL DOPPLER/COLOR FLOW: SEE BELOW COMMENTS: NORMAL LEFT VENTRICULAR EJECTION FRACTION 55-60%. NORMAL WALL MOTION. MODERATE DIASTOLIC DYSFUNCTION. MILD CONCENTRIC LEFT VENTRICULAR HYPERTROPHY. LEFT VENTRICULAR MODERATOR BAND IS PRESENT. MILD TRICUSPID AND AORTIC REGURGITATION. TECHNOLOGIST: Mohamud PEREZ
[2021-09-25 16:55] VITALS: BP 124/69; TEMP 98.9
== END 2021-09-25 16:45 | disposition home or self-care (01) | DRG 291 ==
LOC: ER 13:35 → ERHOLD 18:58 → 4TH 19:48 → OBSVTOIN 09-25 07:37
PROVIDERS: ADMIT Internal Medicine; ATTEND Internal Medicine
DX: I11.0 Hypertensive heart disease with heart failure (principal); I50.33 Acute on chronic diastolic (congestive) heart failure; I82.532 Chronic embolism and thrombosis of left popliteal vein; I48.20 Chronic atrial fibrillation, unspecified; Z95.2 Presence of prosthetic heart valve; Z91.14 Patient's other noncompliance with medication regimen; E78.5 Hyperlipidemia, unspecified; Z95.0 Presence of cardiac pacemaker; M10.9 Gout, unspecified; I25.10 Atherosclerotic heart disease of native coronary artery without angina pectoris; Z20.822 Contact with and (suspected) exposure to COVID-19
CPT/HCPCS: 36415; 71045; 80048; 80061; 80076; 81003; 81015; 82947; 83735; 83880; 84484; 85025; 85610; 93005; 93306; 93970; 96374; 99285; G0378; J1940; U0003

== ENCOUNTER 2023-03-25 11:48 | Inpatient (IN) | payer OTHER ==
--- OUTSIDE RECORDS SUMMARY | 2023-03-25 11:56 | XMS REPORT | Continuity of Care Document ---
:1945 Author Organization [facility] t Address [address] [place] [address] Care Team Providers Name Role Phone Asked, No Pcp Primary Care Physician Unavailable Alfredo Brand MD Attending Clinician STEVE KOCH Attending Clinician Unavailable Steve Koch Attending Clinician Benjamín CAMARGO, Meera Bernal Attending Clinician [phone] Juan Temple MD Attending Clinician Ricky Frazier Attending Clinician MD RICKY FRAZIER Attending Clinician Unavailable Ashley Vernon Attending Clinician STEVE KOCH Admitting Clinician Unavailable Steve Koch Admitting Clinician JUAN TEMPLE Admitting Clinician Unavailable MD JUAN TEMPLE Admitting Clinician Unavailable Payers Payer Name Policy Type Policy Effective Date Expiration Date Sour ce Number MEDICAREMEDICARE PART [id number] [facility] [id number] 2010- 00:00:00 [place] Condition Condition Condition Status Onset Resolution Last Treating Co mments Source Name Details Category Date Date Treatment Clinician Date SUPRAVENTR SUPRAVENT Diagnosis Active 2020-01-19 Memoria ICULAR RICULAR 11-27 13:03:00 l TACHYCARDI TACHYCARDI 00:00: He rmann A, ACUTE A, ACUTE 00 BREANNA BREANNA Active 11/28/2019 [facility] BREATHING BREATHING Diagnosis Active 2019-11-28 Memoria PROBLEM PROBLEM 11-27 23:36:00 l Active 00:00: [place] 11/28/2019 00 [facility] COVID-19 COVID-19 Disease Active Metho di virus virus 11-24 st detected detected 00:00: Hospit a 00 l Shortness Shortness Disease Active [facility] of breath of breath 11-23 st 00:00: Hospita 00 l DVT/LEGS DVT/LEGS Diagnosis Active 2014-042015-03-15 Memoria SWOLLEN SWOLLEN 05-11 03:10:00 l Active 00:00: Kenneth 03/11/2015 00 [facility] LEG PAIN LEG PAIN Diagnosis Active 2012-12-23 Memoria Active 12-23 04:15:00 l 12/23/2012 00:00: Brody hines [address] Hypertensi Hypertens Problem Resolve 2019-12-10 Memoria ve bryanna d 22:38:00 l disorder, disorder, Herm fred systemic systemic arterial arterial (disorder) (disorder) Resolved Problem 12/10/2019 [facility] Neuropathy Neuropath Problem Resolve 2019-12-10 Memoria (disorder) y d 22:38:00 l (disorder) Brody n Resolved Problem 12/10/2019 [facility] Diabetes Diabetes Problem Resolve 2012-12-25 Memoria mellitus mellitus d 21:52:45 l Resolved [place] Problem 12/25/2012 [facility] Gout Gout Problem Resolve 2012-12-25 Caden karine Resolved d 21:52:45 l Problem 12/25/2012 [facility] Hypertensi Hypertens Problem Resolve 2012-12-25 Memoria on ion d 21:52:45 l Resolved Kenneth Problem 12/25/2012 [facility] Neuropathy Neuropath Problem Resolve 2012-12-25 Memoria y Resolved d 21:52:45 l Problem Kenneth 12/25/2012 [facility] Type II Type II Problem Active 2019-12-10 M emoria diabetes diabetes 22:38:00 l mellitus mellitus Brody n uncontroll uncontroll ed ed (finding) (finding) Active Problem 12/10/2019 [facility] SUPRAVENTR SUPRAVENT Diagnosis Active 2020-01-19 Memoria ICULAR RICULAR 13:03:00 l TACHYCARDI TACHYCARDI He rmann A A Active [facility] ACUTE ACUTE Diagnosis Active 2020-01-19 Mem oria KIDNEY KIDNEY 13:03:00 l FAILURE, FAILURE, Brody n UNSPECIFIE UNSPECIFIE D D Active [facility] TYPE 2 TYPE 2 Diagnosis Active 2020-01-19 Me moria DIABETES DIABETES 13:03:00 l MELLITUS MELLITUS Brody n WITH WITH HYPERGLYCE HYPERGLYCE Active [facility] Supraventr Supravent Problem 2019-12-10 Memoria icular ricular 22:38:00 l tachycardi tachycardi He rmann a a 12/10/2019 [facility] Diabetes Diabetes Problem Resolve 2019-12-10 Memoria mellitus mellitus d 22:38:00 l (disorder) (disorder) He rmann Resolved Problem 12/10/2019 [facility] Gout Gout Problem Resolve 2019-12-10 Caden karine (disorder) (disorder) d 22:38:00 l Resolved [place] Problem 12/10/2019 [facility] History of Past Illness Condition Condition Condition Status Onset Resolution Last Treating Co mments Source Name Details Category Date Date Treatment Clinician Date Discharge Discharge Problem 2014-042015-03-18 2015-03-18 Memoria Diagnosis: Diagnosis: 05-15 05:51:43 05:51:43 l Acute DVT Acute DVT 06:00: Herm fred (deep (deep 00 venous venous thrombosis thrombosis ) ) 03/15/2015 03/18/2015 [facility] Allergies, Adverse Reactions, Alerts Allergy Allergy Status Severity Reaction(s) Onset Inactive Treating Comm ents Source Name Type Date Date Clinician NO KNOWN Drug Active Univers ALLERGIE Class ity of S [facility] No Known No Known Active Memori a Medicati Medicati l on on [place] Allergie Allergie s s Social History Social Habit Start Date Stop Date Quantity Comments Source History SDOH Denominational Alcohol Std Drinks Hospit al History SDOH Denominational Alcohol Binge Hospital History SDOH Denominational Alcohol Comment Hospital Exposure to Not sure University of SARS-CoV-2 (event) [facility] Sexual orientation [facility] Social History 2019-11-29 2019-11-29 [facility] ermann 08:52:56 08:52:56 History of Social 2019-11-27 2019-11-[address] function 00:00:00 00:00:00 Hospital Alcohol intake 2019-11-26 2019-11-26 Lifetime Denominational 00:00:00 00:00:00 non-drinker Hospital (finding) History SDOH 2019-11-25 2019-11-25 1 Denominational Alcohol Frequency 00:00:00 00:00:00 Hospita l Tobacco use and 2019-11-24 2019-11-24 Smokeless Denominational exposure 00:00:00 00:00:00 tobacco non-user Hospital Sex Assigned At [birth year] Denominational 00:00:00 00:00:00 Hospital Smoking Status Start Date Stop Date Source Unknown if ever smoked [facility] Medications Ordered Filled Start Stop Current Ordering Indication Dosage Frequency Signature Comments Components Source Medication Medication Date Date Medication? Clinician (SIG) Name Name cefTRIAXone 2019-04- No 1000mg 1,000 mg, Univers (ROCEPHIN) 06-19 IV ity of 1,000 mg in 02:00: 01:33 [place], [place] NaCl 0.9% 00 :00 ONCE, 1 Medical (NS) 50 mL dose, Sun Bran ch MINI-BAG 04/17/20 at 1999, 50 mL
Reas on for Anti-Infec tive: Documented Infection< br>Documen casey Infection Site: Urine
D uration of Therapy: Other (see Comments) NaCl 0.9% 2019-04- No 1000mL at 999 Uni vers (NS) bolus 06-19 12-28 mL/hr, ity of infusion 02:00: 01:51 1,000 mL, Reynaldo as 1,000 mL 00 :00 IV Medical Infusion, Branch ONCE, 1 dose, 04/17/20 at 1999, STAT ondansetron 2019-04- No 4mg 4 mg, Slow Univers (ZOFRAN 06-19 IV Push, ity of (PF)) 01:15: 00:19 ONCE, 1 [place] injection 4 00 :00 dose, Sun Med ical mg 04/17/20 Branch at 1915, ROMAN iohexol 2019-04 2020- No 120mL 120 mL, Unive rs (OMNIPAQUE 2-28 - Intravenou it y of 350 01:00: 00:48 s, ONCE, 1 [place] BULK-150 00 :00 dose, Sun Medica l mL) 04/17/20 Branch injection at 1900, 120 mL Routine ondansetron 2019-04 Yes [id number] 4mg Take 1 Univers (ZOFRAN 2-27 tablet by ity of ODT) 4 mg 00:00: mouth [place] disintegrat 00 every 8 Medic al ing tablet (eight) Branch hours as needed for Nausea and Vomiting (N/V). cefpodoxime 2019-04- No [id number] 100mg Take 1 Univers 100 mg 2-27 -04 tablet by ity of tablet 00:00: 05:59 mouth 2 [place] 00 :00 (two) Medical times Branch daily for 7 days. metoprolol 2020-0 Yes 25 mg = 1 Me moria succinate 8-18 cap, PO, l 25 mg oral 20:19: Daily, # Her melchor capsule, 00 30 cap, 0 extended Refill(s) release metoprolol 2020-0 Yes 25 mg = 1 [...] PO, l tablet 18:18: QPM, For Kenneth 00 Deep Venous Thrombosis / Pulmonary Embolism, # 30 tab, 0 Refill(s) Glipizide 5 2020-0 Yes 5 mg = 1 Me moria MG Oral 8-18 tab, PO, l Tablet 18:18: BID-Before Mariam nn 00 Meals, # 60 tab, 0 Refill(s) metoprolol 2020-0 No 25 mg = 1 Me moria tartrate 25 8-18 tab, PO, l mg oral 18:18: Q12H, # 60 Herm fred tablet 00 tab, 0 Refill(s) rivaroxaban Yes 20 mg = 1 M emoria 20 mg oral 8-18 tab, PO, l tablet 18:18: QPM, For Deep Venous Thrombosis / Pulmonary Embolism, # 30 tab, 0 Refill(s) Glipizide 5 Yes 5 mg = 1 Me moria MG Oral 8-18 tab, PO, l Tablet 18:18: BID-Before Meals, # 60 tab, 0 Refill(s) Saline No Notes: Memoria Flush 0.9% 8-18 Same as: l 02:00: BD Posiflush Sterile Saline No Notes: Memoria Flush 0.9% 8-18 Same as: l 02:00: BD Posiflush Sterile Saline No Notes: Memoria Flush 0.9% 8-17 Same as: l 17:49: BD Posiflush Sterile Saline No Notes: Memoria Flush 0.9% 8-17 Same as: l 17:49: BD Posiflush Sterile Xarelto No Notes: Memoria 8-10 (Same as: l 22:00: Xarelto) Administer with food Xarelto No Notes: Memoria 8-10 (Same as: l 22:00: Xarelto) Administer with food metoprolol No Notes: Memor ia tartrate 8-10 (Same as: l 14:00: Lopressor) metoprolol No Notes: Memor ia tartrate 8-10 (Same as: l 14:00: Lopressor) morphine No Notes: Memoria Sulfate 8-10 (Same l 08:39: as:MORPhin [place] 00 e Sulfate) morphine No Notes: Memoria Sulfate 8-10 (Same l 08:39: as:MORPhin [place] e Sulfate) carvedilol No Notes: Memor ia 8-10 Give with l 02:00: food. (Same As: Coreg) carvedilol No Notes: Memor ia 8-10 Give with l 02:00: food. (Same As: Coreg) Adenosine 2020-0 No Notes: Memori a 8- Rapid IV l 22:36: PUSH over [place] 00 1-2 sec; Flush line immediatel y after drug is given. Adenosine 2019-0 No Notes: Memori a 8-09 Rapid IV l 22:36: PUSH over Kenneth 00 1-2 sec; Flush line immediatel y after drug is given. Lac-Hydrin 2019-0 No Notes: Memor ia 11-28 (Same as: l 22:00: Ainhactin) [place] 00 Xarelto 2019-0 No = 15 Memoria 8-09 mL/min, l 22:00: Start Kenneth date: 11/29/19 17:00:00 CDT, Duration: 30 day, Stop date: 12/28/19 17:00:00 CDT, For Deep Venous Thrombosis / Pulmonary Embolism Lac-Hydrin 2019-0 No Notes: Memor ia 11-28 (Same as: l 22:00: Ainhactin) Xarelto 2019-0 No = 15 Memoria 8-09 mL/min, l 22:00: Start Kenneth date: 11/29/19 17:00:00 CDT, Duration: 30 day, Stop date: 12/28/19 17:00:00 CDT, For Deep Venous Thrombosis / Pulmonary Embolism Lactic acid 2019-0 No 1 appl, Mem oria 100 MG/ML 11-28 Route: l Topical 14:00: TOP, BID, Mariam nn Lotion 00 Start date: 11/29/19 9:00:00 CDT, Duration: 30 day, Stop date: 12/28/19 17:00:00 CDT Lactic acid 2019-0 No 1 appl, Mem oria 100 MG/ML 11-28 Route: l Topical 14:00: TOP, BID, Mariam nn Lotion 00 Start date: 11/29/19 9:00:00 CDT, Duration: 30 day, Stop date: 12/28/19 17:00:00 CDT heparin 2019-0 No Notes: Memoria 11-28 porcine l 13:00: heparin heparin 2019-0 No Notes: Memoria 11-28 porcine l 13:00: heparin Glipizide 5 2019-0 No 5 mg = 1 Me moria MG Oral 8-09 tab, PO, l Tablet 09:01: BID-Before Mariam nn 00 Meals, # 30 tab, 1 Refill(s) NIFEdipine 2020-0 No 30 mg = 1 Me moria 30 mg oral 8-09 tab, PO, l tablet, 09:01: Daily, # Brody n extended 00 30 tab, 0 release Refill(s) Glipizide 5 2020-0 No 5 mg = 1 Me moria MG Oral 8-09 tab, PO, l Tablet 09:01: BID-Before Mariam nn Meals, # 30 tab, 1 Refill(s) NIFEdipine 2020-0 No 30 mg = 1 Me moria 30 mg oral 8-09 tab, PO, l tablet, 09:01: Daily, # Brody n extended 00 30 tab, 0 release Refill(s) Dextrose 2020-0 No 12.5 gm, Memor ia 50% Syringe 11-28 25 mL, l (D50W) 07:13: Route: Kenneth IVP, Drug Form: INJ, Dosing Weight 113.636, [...] temperatur e. Expires in days from ____Date Dextrose 2020-0 No 12.5 gm, Memor ia 50% Syringe 11-28 25 mL, l (D50W) 07:13: Route: Kenneth 00 IVP, Drug Form: INJ, Dosing Weight 113.636, kg, PRN, PRN Blood Glucose Results, Start date: 11/29/19 2:13:00 CDT, Duration: 30 day, Stop date: 12/29/19 2:12:00 CDT, 0 Glucagon 2020-0 No 1 mg, Memoria 11-28 Route: IM, l 07:13: Drug form: [place] PDR/INJ, PRN, Dosing Weight 113.636, kg, PRN Blood Glucose Results, Start date: 11/29/19 2:13:00 CDT, Duration: 30 day, Stop date: 12/29/19 2:12:00 CDT, 0 Insulin 2019-0 No Notes: Memoria Lispro 11-28 (Same as: l 07:13: Humalog) Roll in palms of hands gently; Do not shake vigorously . WASTE: F/P - Black; E - Municipal Trash Bin Stable for 28 days at room temperatur e. Expires in days from ____Date Docusate 0 No Notes: Memoria 11-28 (Same as: l 07:11: Colace) (Do Not Crush) Ondansetron 0 No Notes: Caden karine 11-28 (Same as: l 07:11: Zofran) MEDICATION WASTE Product Size: 4 mg Product Wasted: ___ mg Trazodone 2019-0 No Notes: Memori a 11-28 (Same As: l 07:11: Desyrel) Acetaminoph 0 No Notes: Do M emoria en 11-28 not exceed l 07:11: 4 gm/day. [place] 00 (Same as: Tylenol) Lactated 0 No 1,000 mL, Caden karine Ringers IV 11-28 Rate: 75 l 1,000 mL 07:11: ml/hr, [place] 00 Infuse over: 13.3 hr, Route: IV, [...] MG/ML 11-28 (Same as: l 07:11: Duoneb) [place] Ipratropium 00 Crapo 0.167 MG/ML Inhalant Solution [DuoNeb] Hydralazine 0 No Notes: Caden karine 11-28 (Same as: l 07:11: Apresoline [place] 00 ) Push over 5 minutes Docusate 2019-0 No Notes: Memoria 11-28 (Same as: l 07:11: Colace) Kenneth 00 (Do Not Crush) Ondansetron 2019-0 No Notes: Caden karine 11-28 (Same as: l 07:11: Zofran) Kenneth 00 MEDICATION WASTE Product Size: 4 mg Product Wasted: ___ mg Trazodone 2019-0 No Notes: Memori a 11-28 (Same As: l 07:11: Desyrel) Kenneth 00 Acetaminoph 2019-0 No Notes: Do M emoria en 11-28 not exceed l 07:11: 4 gm/day. Kenneth (Same as: Tylenol) Lactated 0 No 1,000 mL, Caden karine Ringers IV 11-28 Rate: 75 l 1,000 mL 07:11: ml/hr, Kenneth Infuse over: 13.3 hr, Route: IV, Dosing Weight 113.636 kg, Total Volume: 1,000, Priority: Routine, Start date: 11/29/19 2:11:00 CDT, Duration: 30 day, Stop date: 12/29/19 2:10:00 CDT, 2.44, m2, 0 Maalox 2020-0 No Notes: Memoria Advanced 11-28 (aluminum l Regular 07:11: hydroxide- Herm fred Strength 00 magnesium SUSP hyd-simeth icone 200-200-20 mg/5ml 30 ml ud PABLO) Morphine No Notes: Memoria 11-28 (Same l 07:11: as:MORPhin 00 e Sulfate) Albuterol No Notes: Memori a 0.833 MG/ML 11-28 (Same as: l / 07:11: Duoneb) Ipratropium 00 Crapo 0.167 MG/ML Inhalant Solution [DuoNeb] Hydralazine No Notes: Caden karine 11-28 (Same as: l 07:11: Apresoline 00 ) Push over 5 minutes losartan-hy 2019- 2020- No 1{tbl} QD Take 1 M ethodi drochloroth 11-[address] iazide 01:07: 00:00 mouth Hospita (HYZAAR) 18 :00 daily. l 100-12.5 mg per tablet metFORMIN 2020- No 500mg Q.5D Take 500 Me [...] hr daily for tablet 30 days. atorvastati 2019-2019- No 10mg QD Take 1 Met hodi n (LIPITOR) 11-26 tablet (10 s t 10 mg 00:00: 04:59 mg total) Hospit a tablet 00 :00 by mouth l nightly for 30 days. glipiZIDE 2019- 2020- No 5mg Q.5D Take 1 Metho [...] by l tablet mouth daily. No known No No known Metho di medications 11-[address] 23:01: s Hospita 01 l No known No No known Metho di medications 11-23 [...] 14 tab, 0 Refill(s) 1 ML 2014-04 Yes 130 mg, Memoria Enoxaparin 1-24 SUB-Q, l sodium 150 13:43: Q12H, # 10 H ermann MG/ML 00 ea, 0 Prefilled Refill(s) Syringe [Lovenox] warfarin 2014-04 Yes 10 mg = 1 M emoria mg oral 1-24 tab, PO, l tablet 13:43: Daily, # [place] 00 14 tab, 0 Refill(s) 1 ML 2014-04 No 130 mg, Memoria Enoxaparin 1-24 SUB-Q, l sodium 150 13:40: Q12H, # 10 H ermann MG/ML 28 ea, 0 Prefilled Refill(s) Syringe [Lovenox] 1 ML 2014-04 No 130 mg, Memoria Enoxaparin 1-24 SUB-Q, l sodium 150 13:40: Q12H, # 10 H ermann MG/ML 28 ea, 0 Prefilled Refill(s) Syringe [Lovenox] Lovenox 2014-04 Yes Notes: Memoria 24 Nurse to l 13:39: ensure [place] 00 documentat ion of patient education per anticoagul ation policy. (Same as: Lovenox) Lovenox 2014-04 Yes Notes: Memoria 24 Nurse to l 13:39: ensure Kenneth 00 documentat ion of patient education per anticoagul ation policy. (Same as: Lovenox) warfarin 2014-04 No 10 mg = 1 M emoria mg oral 1-24 tab, PO, l tablet 13:31: Daily, # [place] 00 14 tab, 0 Refill(s) warfarin 10 2014-04 No 10 mg = 1 M emoria mg oral 1-24 tab, PO, l tablet 13:31: Daily, # [place] 00 14 tab, 0 Refill(s) 1 ML 2014-04 No 150 mg, Memoria Enoxaparin 1-24 SUB-Q, l sodium 150 13:30: Q12H, # 10 H ermann MG/ML 00 ea, 0 Prefilled Refill(s) Syringe [Lovenox] 1 ML 2014-04 No 150 mg, Memoria Enoxaparin 1-24 SUB-Q, l sodium 150 13:30: Q12H, # 10 H ermann MG/ML 00 ea, 0 Prefilled Refill(s) Syringe [Lovenox] Lovenox 2014-04 No 150 mg, Memoria -24 Route: l 13:15: SUB-Q, Kenneth 00 ONCE, Dosing Weight 127.273, kg, Start date: 03/15/15 7:15:00, Stop date: 03/15/15 7:15:00 Lovenox 2014-04 No 150 mg, Memoria -24 Route: l 13:15: SUB-Q, Kenneth 00 ONCE, Dosing Weight 127.273, kg, Start date: 03/15/15 7:15:00, Stop date: 03/15/15 7:15:00 PlasmaLyte 2014-04 No Notes: Memor ia A PH-7.4 - (Same as: l 1,000 mL 10:42: Isolyte S Herm fred 00 PH 7.4) PlasmaLyte 2014-04 No Notes: Memor ia A PH-7.4 -24 (Same as: l 1,000 mL 10:42: Isolyte S Herm fred 00 PH 7.4) colchicine Yes Silvia K 0.6 mg, 1 Memoria 0.6 mg oral - [facility] tab, PO, l tablet 09:47: Q1H, Brody RUBIN 55 10 tab, Other-See Comments, Substituti on Allowed colchicine Yes Silvia K 0.6 mg, 1 Memoria 0.6 mg oral - [facility] tab, PO, l tablet 09:47: Q1H, PRN, Brody n 55 10 tab, Other-See Comments, Substituti on Allowed tramadol 50 Yes Silvia K 50 mg, 1 Memoria mg oral 12-23 [facility] tab, PO, l tablet 09:47: Q6H, PRN, Brody n 20 40 tab, Pain, Substituti on Allowed, TAB tramadol 50 Yes Silvia K 50 mg, 1 Memoria mg oral 12-23 [facility] tab, PO, l tablet 09:47: Q6H, PRN, Brody n 20 40 tab, Pain, Substituti on Allowed, TAB allopurinol Yes Silvia K 300 mg, 1 Memoria 300 mg oral 12-23 [facility] tab, PO, l tablet 09:47: Daily, 30 Brody n 10 tab, Substituti on Allowed, TAB allopurinol Yes Silvia K 300 mg, 1 Memoria 300 mg oral 12-23 [facility] tab, PO, l tablet 09:47: Daily, 30 Brody n 10 tab, Substituti on Allowed, TAB allopurinol No Silvia K 300 mg, 1 Memoria 12-23 [facility] tab, l 09:08: Route: PO, [place] 00 Drug form: TAB, ONCE, Dosing Weight 135, kg, Start date: 12/23/12 4:08:00, Stop date: 12/23/12 4:08:00 allopurinol No Silvia K 300 mg, 1 Memoria 12-23 [facility] tab, l 09:08: Route: PO, Kenneth Drug form: TAB, ONCE, Dosing Weight 135, kg, Start date: 12/23/12 4:08:00, Stop date: 12/23/12 4:08:00 [place] 0 No Silvia K 1 tab, Memori a 7.5/325 12-23 [place] Route: PO, l oral tablet 08:48: Drug Form: Kenneth 00 TAB, Dosing Weight 135, kg, ONCE, Start date: 12/23/12 3:48:00, Stop date: 12/23/12 3:48:00 [place] 0 No Silvia K 1 tab, Memori a 7.5/325 12-23 [place] Route: PO, l oral tablet 08:48: Drug Form: [place] 00 TAB, Dosing Weight 135, kg, ONCE, Start date: 12/23/12 3:48:00, Stop date: 12/23/12 3:48:00 ketorolac 2012-0 No Silvia K 30 mg, 1 Memoria 12-23 [facility] mL, Route: l 08:45: IM, Drug Kenneth 00 form: INJ, ONCE, Dosing Weight 135, kg, Priority: STAT, Start date: 12/23/12 3:45:00, Stop date: 12/23/12 3:45:00 allopurinol 0 No Silvia K Route: PO, Memoria - [facility] ONCE, l 08:45: Dosing [place] Weight 135, kg, Start date: 12/23/12 3:45:00, Stop date: 12/23/12 3:45:00 ketorolac No Silvia K 30 mg, 1 Memoria 12-23 [facility] mL, Route: l 08:45: IM, Drug Kenneth form: INJ, ONCE, Dosing Weight 135, kg, Priority: STAT, Start date: 12/23/12 3:45:00, Stop date: 12/23/12 3:45:00 allopurinol 0 No Silvia K Route: PO, Memoria - [facility] ONCE, l 08:45: Dosing Kenneth Weight 135, kg, Start date: 12/23/12 3:45:00, Stop date: 12/23/12 3:45:00 Vital Signs Vital Name Observation Time Observation Value Comments Source Systolic blood 2020-04-18 01:00:00 141 mm[Hg] [facility] Diastolic blood 2020-04-18 01:00:00 75 mm[Hg] [facility] Heart rate 2020-04-18 01:00:00 69 /[facility] Respiratory rate 2020-04-18 01:00:00 16 /min [facility] Oxygen saturation in 2020-04-18 01:00:00 97 /min [facility] Arterial blood by [facility] Pulse oximetry Branch Body temperature 2020-04-17 22:49:00 36.83 Manasa [facility] Body weight 2020-04-17 22:49:00 117.935 kg [facility] Systolic blood 2020-04-18 01:00:00 141 mm[Hg] Univer sity of pressure [facility] Diastolic blood 2020-04-18 01:00:00 75 mm[Hg] Unive rsity of pressure [facility] Heart rate 2020-04-18 01:00:00 69 /min [facility] Respiratory rate 2020-04-18 01:00:00 16 /min [facility] Oxygen saturation in 2020-04-18 01:00:00 97 /min [facility] Arterial blood by [facility] Pulse oximetry [place] Body temperature 2020-04-17 22:49:00 36.83 [facility] 2020-04-17 22:49:00 117.935 kg [facility] Heart Rate 2019-12-08 21:00:00 [facility] [place] Respitory Rate 2019-12-08 21:00:00 Memori al [place] Systolic (mm Hg) 2019-12-08 21:00:00 Caden rial Kenneth Diastolic (mm Hg) 2019-12-08 21:00:00 Mem orial [place] Heart Rate 2019-12-08 16:54:00 [facility] [place] Respitory Rate 2019-12-08 16:54:00 Memori al [place] Systolic (mm Hg) 2019-12-08 16:54:00 Caden rial [place] Diastolic (mm Hg) 2019-12-08 16:54:00 Mem orial Kenneth Heart Rate 2019-12-08 13:00:00 [facility] [place] Respitory Rate 2019-12-08 13:00:00 Memori al Kenneth Systolic (mm Hg) 2019-12-08 13:00:00 Caden rial Kenneth Diastolic (mm Hg) 2019-12-08 13:00:00 Mem orial [place] Temperature Oral (F) 2019-12-08 01:00:00 99.1 F [facility] [place] Temperature Oral (F) 2019-12-07 23:50:00 98.4 F [facility] [place] Temperature Oral (F) 2019-12-07 22:40:00 98.2 F [facility] Kenneth Temperature Oral (F) 2019-12-07 04:58:00 97.9 F [facility] [place] Heart Rate 2019-12-07 04:58:00 Memorial Kenneth Respitory Rate 2019-12-07 04:58:00 Memori al Kenneth Systolic (mm Hg) 2019-12-07 04:58:00 Caden rial [place] Diastolic (mm Hg) 2019-12-07 04:58:00 Mem orial Kenneth Heart Rate 2019-12-07 00:46:00 Memorial Kenneth Respitory Rate 2019-12-07 00:46:00 Memori al Kenneth Systolic (mm Hg) 2019-12-07 00:46:00 Caden rial [place] Diastolic (mm Hg) 2019-12-07 00:46:00 Mem orial [place] Temperature Oral (F) 2019-12-07 00:46:00 98.4 F [facility] [place] Heart Rate 2019-12-06 21:00:00 Memorial Kenneth Respitory Rate 2019-12-06 21:00:00 Memori al Kenneth Systolic (mm Hg) 2019-12-06 21:00:00 Caden rial Kenneth Diastolic (mm Hg) 2019-12-06 21:00:00 Mem orial Kenneth Temperature Oral (F) 2019-12-06 19:00:00 97.5 F [facility] Kenneth Heart Rate 2019-11-30 04:50:00 [facility] [place] Respitory Rate 2019-11-30 04:50:00 Memori al Kenneth Systolic (mm Hg) 2019-11-30 04:50:00 Caden rial Kenneth Diastolic (mm Hg) 2019-11-30 04:50:00 Mem orial Kenneth Heart Rate 2019-11-30 01:00:00 [facility] Kenneth Respitory Rate 2019-11-30 01:00:00 Memori al [place] Systolic (mm Hg) 2019-11-30 01:00:00 Caden rial Kenneth Diastolic (mm Hg) 2019-11-30 01:00:00 Mem orial [place] Heart Rate 2019-11-29 22:41:00 [facility] [place] Systolic (mm Hg) 2019-11-29 22:41:00 Caden rial Kenneth Diastolic (mm Hg) 2019-11-29 22:41:00 Mem orial [place] Respitory Rate 2019-11-29 21:05:00 Memori al Kenneth Height 2019-11-29 08:57:00 185.42 cm Memorial Kenneth Weight 2019-11-29 08:57:00 [facility] Kenneth BMI Calculated 2019-11-29 08:57:00 Madhavi al [place] Height 2019-11-29 02:04:00 185.42 cm [facility] [place] BMI Calculated 2019-11-29 02:04:00 Memshawn al [place] Weight 2019-11-29 02:04:00 [facility] Kenneth Temperature Oral (F) 2019-11-29 02:04:00 98.2 F [facility] [place] [facility] Systolic blood 2019-11-27 20:21:40 133 mm[Hg] [facility] pressure Diastolic blood 2019-11-27 20:21:40 65 mm[Hg] [facility] pressure Heart rate 2019-11-27 20:21:40 64 /min [facility] Body temperature 2019-11-27 20:21:40 36.22 Manasa [facility] Respiratory rate 2019-11-27 20:21:40 18 /min [facility] Oxygen saturation in 2019-11-27 20:21:40 98 /min [facility] Arterial blood by Pulse oximetry Body weight 2019-11-27 09:14:10 114.034 kg [facility] [facility] BMI 2019-11-27 09:14:10 33.17 kg/m2 [facility] Body height 2019-11-25 06:48:00 185.4 cm [facility] Respitory Rate 2015-03-15 14:30:00 [facility] al Kenneth Temperature Oral (F) 2015-03-15 14:30:00 98.0 F [facility] [place] Heart Rate 2015-03-15 14:30:00 [facility] Systolic (mm Hg) 2015-03-15 14:30:00 [facility] [place] Diastolic (mm Hg) 2015-03-15 14:30:00 Mem orial [facility] Systolic (mm Hg) 2015-03-15 13:30:00 Caden [facility] [place] Diastolic (mm Hg) 2015-03-15 13:30:00 Mem [facility] [place] Respitory Rate 2015-03-15 13:30:00 [facility] [place] Respitory Rate 2015-03-15 12:30:00 Memori al Kenneth Temperature Oral (F) 2015-03-15 12:30:00 97.0 F [facility] Systolic (mm Hg) 2015-03-15 12:30:00 Caden rial [facility] Diastolic (mm Hg) 2015-03-15 12:30:00 Mem orial Kenneth Temperature Oral (F) 2015-03-15 10:32:00 97.4 F [facility] [place] Heart Rate 2015-03-15 04:52:00 [facility] Height 2015-03-15 04:52:00 185.42 cm [facility] [place] Weight 2015-03-15 04:52:00 [facility] BMI Calculated 2015-03-15 04:52:00 [facility] [place] Temperature Oral (F) 2012-12-23 09:57:00 98.5 F [facility] Systolic (mm Hg) 2012-12-23 09:57:00 Caden [facility] [place] Respitory Rate 2012-12-23 09:57:00 Memori al Kenneth Heart Rate 2012-12-23 09:57:00 [facility] Diastolic (mm Hg) 2012-12-23 09:57:00 Mem orial Kenneth Respitory Rate 2012-12-23 08:29:00 [facility] [place] Heart Rate 2012-12-23 08:29:00 [facility] Temperature Oral (F) 2012-12-23 08:29:00 97.9 F [facility] Systolic (mm Hg) 2012-12-23 08:29:00 Caden rial Kenneth Diastolic (mm Hg) 2012-12-23 08:29:00 Mem orial [facility] Weight 2012-12-23 08:29:00 [facility] Height 2012-12-23 08:29:00 185.42 cm [facility] Procedures Procedure Date / Time Performing Clinician Source Performed CT ABDOMEN PELVIS W 2020-04-18 00:51:42 Alfredo Brand [facility] CONTRAST Medical Branch LIPASE 2020-04-17 23:58:00 Sunday Alfredo [facility] COMP. METABOLIC PANEL 2020-04-17 23:58:00 Alfredo Brand [facility] ([id number]) Medical Branch CBC WITH DIFF 2020-04-17 23:58:00 Sunday Alfredo [facility] URINALYSIS 2020-04-17 23:58:00 Sunday Alfredo [facility] POC GLUCOSE 2019-11-27 17:59:00 Ricky Frazier [facility] POC GLUCOSE 2019-11-27 13:20:00 [facility] POC GLUCOSE 2019-11-27 01:24:00 [facility] POC GLUCOSE 2019-11-26 13:21:00 [facility] POC GLUCOSE 2019-11-26 01:15:00 [facility] POC GLUCOSE 2019-11-25 21:14:00 [facility] POC GLUCOSE 2019-11-25 16:44:00 [facility] TTE COMPLETE, WO 2019-11-25 13:45:00 [facility], W DOPPLER ([id number]) POC GLUCOSE 2019-11-25 12:37:00 [facility] HC COMPLETE BLD COUNT 2019-11-25 09:45:00 Stuart Del Valle [facility] W/AUTO DIFF POC GLUCOSE 2019-11-25 06:41:00 [facility] TROPONIN 2019-11-25 03:20:00 Ty, [facility] URINE CULTURE 2019-11-25 03:10:00 Ty, [facility] [place] URINALYSIS SCREEN AND 2019-11-25 03:10:00 Ty, [facility] MICROSCOPY, WITH REFLEX Chrissy TO CULTURE CT CHEST WO CONTRAST 2019-11-25 02:23:48 [facility] POC GLUCOSE 2019-11-25 01:49:00 [facility] POC GLUCOSE 2019-11-24 23:54:00 [facility] TROPONIN 2019-11-24 23:10:00 TyAnia spital [place] HEMOGLOBIN A1C 2019-11-24 23:10:00 [facility] COMPREHENSIVE METABOLIC 2019-11-24 23:10:00 [facility] PANEL MAGNESIUM LEVEL 2019-11-24 23:10:00 [facility] PHOSPHORUS LEVEL 2019-11-24 23:10:00 [facility] ESTIMATED GFR 2019-11-24 23:10:00 Ricky Frazier [facility] COVID-19 QUALITATIVE 2019-11-24 22:45:00 Ty, [facility] RT-PCR Chrissy ECG ED PRELIMINARY 2019-11-24 20:56:11 Ty, [facility] INTERPRETATION Chrissy ECG 12-LEAD 2019-11-24 20:54:14 Ty, [facility] spital Chrissy HC COMPLETE BLD COUNT 2019-11-24 20:38:00 Ty, [facility] W/AUTO DIFF Chrissy PROTHROMBIN TIME WITH INR 2019-11-24 20:38:00 Ty, [facility] Chrissy PARTIAL THROMBOPLASTIN 2019-11-24 20:38:00 Ty, [facility] TIME (PTT) Chrissy COMPREHENSIVE METABOLIC 2019-11-24 20:38:00 Ty, [facility] PANEL Chrissy TROPONIN 2019-11-24 20:38:00 Ty, [facility] spital Chrissy LIPASE LEVEL 2019-11-24 20:38:00 Ty, [facility] spital Chrissy B NATRIURETIC PEPTIDE 2019-11-24 20:38:00 Ty, [facility] Chrissy ESTIMATED GFR 2019-11-24 20:38:00 Ty, [facility] spital Chrissy XR CHEST 1 VW PORTABLE 2019-11-24 20:37:00 Ty, [facility] Chrissy Plan of Care Planned Activity Planned Date Details Comments Source Future Scheduled 2023-03-25 COVID-19 VACCINE (#1) [facility] Test 11:51:36 [code = COVID-19 VACCINE (#1)] Future Scheduled 2023-03-25 SHINGLES VACCINES (1 Met [facility] Test 11:51:36 of 2) [code = SHINGLES VACCINES (1 of 2)] Future Scheduled 2023-03-25 65+ PNEUMOCOCCAL [facility] Test 11:51:36 VACCINE (1 - PCV) [code = 65+ PNEUMOCOCCAL VACCINE (1 - PCV)] Future Scheduled 2023-03-25 [facility]FLUENZA VACCINE (#[facility]) [facility] 11:51:36 [code = INFLUENZA VACCINE (#1)] Future Scheduled 2022-12-21 [facility]al [facility] Test 00:00:00 (>/= 19 yrs) [code = IMM Influenza Seasonal (>/= 19 yrs)] Future Scheduled 2021-05-23 COVID-19 VACCINE (1) Met [facility] Test 13:49:23 [code = COVID-19 VACCINE (1)] Future Scheduled 2021-05-23 65+ [facility]AL [facility] Test 13:49:23 VACCINE (1 of 4 - PCV13) [code = 65+ PNEUMOCOCCAL VACCINE (1 of 4 - PCV13)] Future Scheduled 2021-05-23 Hepatitis C screening [facility] Test 13:49:23 (procedure) [code = 236579047] Future Scheduled 2021-05-23 COLONOSCOPY SCREENING [facility] Test 13:49:23 [code = COLONOSCOPY SCREENING] Future Scheduled 2021-05-23 SHINGLES VACCINES (#1) [facility] Test 13:49:23 [code = SHINGLES VACCINES (#1)] Future Scheduled 2021-05-23 [facility]ACCINE [facility] Test 13:49:23 [code = INFLUENZA VACCINE] Future Scheduled 2021-05-23 COVID-19 VACCINE (1) [facility] Test 13:49:23 [code = COVID-19 VACCINE (1)] Future Scheduled 2021-05-23 65+ [facility]OCOCCAL [facility] Test 13:49:23 VACCINE (1 of 4 - PCV13) [code = 65+ PNEUMOCOCCAL VACCINE (1 of 4 - PCV13)] Future Scheduled 2021-05-23 Hepatitis C screening [facility] Test 13:49:23 (procedure) [code = 787246723] Future Scheduled 2021-05-23 COLONOSCOPY SCREENING [facility] Test 13:49:23 [code = COLONOSCOPY SCREENING] Future Scheduled 2021-05-23 SHINGLES VACCINES (#1) [facility] Test 13:49:23 [code = SHINGLES VACCINES (#1)] Future Scheduled 2021-05-23 [facility]ACCINE [facility] Test 13:49:23 [code = INFLUENZA VACCINE] Future Scheduled 2021-01-20 [facility] Test 00:00:00 Oct to June (>/= 19 yrs) [code = [...] 65+ [facility] Test 00:00:00 (1 - PCV) [code = Imm Pneumococcal 65+ (1 - PCV)] Future Scheduled 1957 COVID-19 Vaccine (1) [facility] Test 00:00:00 [code = COVID-19 Vaccine (1)] Future Scheduled 1950 COVID-19 Vaccine (1) [facility] Test 00:00:00 [code = COVID-19 Vaccine (1)] Future Scheduled 1950 COVID-19 Vaccine (1) [facility] Test 00:00:00 [code = COVID-19 Vaccine (1)] Future Scheduled 1945 COVID-19 Vaccine (#1) [facility] Test 00:00:00 [code = COVID-19 Vaccine (#1)] Future Scheduled 65+ [facility]OCOCCAL [facility] Test VACCINE (1 of 4 - PCV13) [code = 65+ PNEUMOCOCCAL VACCINE (1 of 4 - PCV13)] Future Scheduled DIABETES: RETINAL EYE [facility] Test EXAM [code = DIABETES: RETINAL EYE EXAM] Future Scheduled DIABETIC FOOT EXAM [facility] Test [code = DIABETIC FOOT EXAM] Future Scheduled COVID-19 VACCINE (1) [facility] Test [code = COVID-19 VACCINE (1)] Future Scheduled [facility] (procedure) [code = 570946456] Future Scheduled COLONOSCOPY SCREENING [facility] Test [code = COLONOSCOPY SCREENING] Future Scheduled SHINGLES VACCINES (#1) [facility] Test [code = SHINGLES VACCINES (#1)] Future Scheduled IN[facility]UENZA VACCINE [facility] Test [code = INFLUENZA VACCINE] Encounters Start End Encounter Admission Attending Care Care Encounter Source Date/Time Date/Time Type Type Clinicians Facility Department ID 2020-04-17 2020-04-17 Emergency Echo, [facility] [id number] 16:56:00 20:05:00 Alfredo Jordan [id number] [place] 4.2.7.2.686 [place] [id number] [facility] 2020-04-17 2020-04-17 Emergency [facility] [id number] [facility] 16:56:00 20:05:00 Alfredo Jordan 350.1.13.10 i ty of [place] 4.2.7.2.686 [facility] [id number] [address] 2020-04-17 2020-04-17 Emergency X [facility] ERT [id number] [facility] 16:56:00 16:56:00 ity [facility] 2019-11-29 2019-12-08 Inpatient [facility] [id number] Memoria 01:58:40 22:45:00 millie Fox l [facility] 2019-11-29 2019-12-08 Inpatient [facility] [id number] Memoria 01:58:40 22:45:00 millie rudd [facility] 2019-11-29 2019-12-08 Inpatient E [facility] [id number] [facility] 02:11:00 17:45:00 STEVE 2019-11-28 2019-12-[address] [facility] [id number] 675 20:58:40 17:45:00 Steve Garcia 2019-11-28 2019-11-28 Outpatient [facility] [id number] 675 20:58:40 20:58:40 Steve Fox [facility] 2019-11-28 2019-11-[address] [facility], [facility] [id number] 675 20:58:40 20:58:40 Steve Fox [facility] 2019-11-28 2019-11-28 [facility] [id number] 675 20:58:40 20:58:40 Steve Fox [facility] 2019-11-28 2019-11-[address] [facility], [facility] [id number] 675 20:58:40 20:58:40 Steve Fox [facility] 2019-11-28 2019-11-[address] [facility], [facility] [id number] 675 20:58:40 20:58:40 Steve Fox [facility] 2019-11-24 2019-11-27 [facility] Meera Butts [id number] Methodi 15:13:48 20:07:00 Demian Sheikh Juan [id number] [place] [address] 3.430.2.7 [facility] .[id number] l .8 2019-11-24 2019-11-24 Outpatient FBCOVID FBCOVID [id number] FBCOVID 00:00:00 00:00:00 [id number] 1017-08-04 2019-11-24 Travel 1.2.840.1 [id number] [facility] 00:00:00 00:00:00 [id number] 3.430.2.7 0.2.7.3.698 [facility] .[id number] 084.8 l .8 2017-07-01 2017-07-01 Emergency [facility] MED [id number] Mera 01:48:00 01:48:00 [facility] 2015-03-15 2015-03-15 [facility] [id number] Memoria 04:35:00 14:30:00 Emergency r Kenneth [address] [place] [address] 2015-03-15 2015-03-15 [facility] [id number] Memoria 04:35:00 14:30:00 Emergency r Kenneth 01 l [facility] 2015-03-14 2015-03-15 Outpatient Ashley Vernon [facility] [id number] 22:35:00 08:30:00 Alexander 01 2012-12-23 2012-12-23 Emergency nullFlavo [id number] Memoria 03:26:00 04:58:00 r [facility] 00 [place] 2012-12-23 2012-12-23 Emergency nullFlavo [id number] Memoria 03:26:00 04:58:[address] Results Test Test Test Results Result Source Description Time Comments Comments CT ABDOMEN 2020-03-22. ?Wall thickening of [employer] of PELVIS W 28 urinary bladder may [facility] CONTRAST 01:42:14 represent cystitis. Branc h Correlatewith urinalysis. 2. ?Colonic diverticulosis without diverticulitis. 3. ?Mild hepatomegaly. 4. ?Supraumbilical hernia containing fat and mesenteric vessels. Preliminary Report Dictated by Resident: Radha Tabor ?MD aLurita., have reviewed this study and agree with [...] APPEARANCE (test code = Hazy Clear A 2254678241) COLOR (test code = 7730178720) Yellow Yellow PH (test code = 6339450686) 4.8-8.0 SP GRAVITY (test code = 1.003-1.030 4818158211) GLU U QUAL (test code = Normal Normal 0305533259) BLOOD (test code = 5342402154) 1+ Negative A KETONES (test code = 8199472040) Negative Negative PROTEIN (test code = 2887-8) Negative Negative UROBILIN (test code = Normal Normal 3365268196) BILIRUBIN (test code = Negative Negative 4298230576) NITRITE (test code = 9472076197) Negative Negative LEUK JIMENA (test code = 500/uL Negative A 5619973261) RBC/HPF (test code = 0445695404) See_Comment H [Automated message] The system which ge nerated this result transmit casey reference range: 0 - 3 HP F. The reference range was not used to interpret th is result as normal/abnormal . WBC/HPF (test code = 4431944555) See_Comment H [Automated message] The system which ge nerated this result transmit casey reference range: 0 - 5 HP F. The reference range was not used to interpret th is result as normal/abnormal . BACTERIA (test code = Few Negative A 3804252313) MUCOUS (test code = 4039964998) Slight Negative LPF A SQ EPITH (test code = <1 HPF 7895555032) HYAL CAST (test code = See_Comment H [Aut omated message] The 1480691683) system which ge nerated this result transmit casey reference range: <=2 LPF. The reference range was not u sed to interpret this result as normal/abnormal . Lab Interpretation (test code = Abnormal 71773-0) [facility] [id number] 00:30:00 Test Item Value Reference Range Interpretation Comments NA (test code = 143 mmol/L 135-145 5689135639) K (test code = 4.4 mmol/L 3.5-5 7401163493) CL (test code = 106 mmol/L 98-108 8662914815) CO2 TOTAL (test code = 29 mmol/L 23-31 5076926883) AGAP (test code = 2-16 6983969695) BUN (test code = 17 mg/dL 7-23 5778169266) GLUCOSE (test code = 115 mg/dL 70-110 H 6445147634) CREATININE (test code = 1.30 mg/dL 0.6-1.25 H 8609852745) TOTAL BILI (test code = 0.8 mg/dL 0.1-1.3 9275360250) CALCIUM (test code = 9.7 mg/dL 8.6-10.6 7552192516) T PROTEIN (test code = 7.8 g/dL 6.3-8.2 6354840715) ALBUMIN (test code = 4.3 g/dL 3.5-5 2714689700) ALK PHOS (test code = 109 U/L 34-122 7535434293) ALTv (test code = 9 U/L 5-50 1742-6) AST(SGOT) (test code = 19 U/L 13-40 1368431732) eGFR Calculation mL/min/1.73m2 (Non-) (test code = 3886275881) eGFR Calculation mL/min/1.73m2 () (test code = 0041172231) HATTIE (test code = HATTIE) Association of [...] tests). Lab Interpretation Abnormal (test code = 79429-5) [facility], [id number] 00:30:00 Test Item Value Reference Range Interpretation Comments LIPASE (test code = 3134781940) 43 U/L 0-220 Lab Interpretation (test code = Normal 59179-6) [facility] with Klqhhihvmsvp1141-50-23 00:17:00 Test Item Value Reference Range Interpretation [...] (test code = 33.8 fL 38.5-51.6 L 75060-4) RDW-CV (test code = 15.9 % 12.1-15.4 H 788-0) PLT (test code = See_Comment L [Automated 777-3) message] The sy stem which generated this result transmitted reference range : 150 - 328 10*3/ ?L. The reference r yi was not used to interpret this result as normal/abnormal . MPV (test code = 10.3 fL 9.8-13 27974-3) NRBC/100 WBC (test See_Comment [Automat ed code = 6506589752) message] The system which generated this result transmitted reference range : 0.0 - 10.0 /100 WBCs. The refer ence range was not u sed to interpret th is result as normal/abnormal . NRBC x10^3 (test code <0.01 See_Comment [Auto mated = 5887322424) message] The s ystem which generated this result transmitted reference range : 10*3/?L. The reference range was not used to interpret this result as normal/abnormal . GRAN MAT (NEUT) % 68.0 % (test code = 770-8) IMM GRAN % (test code 0.40 % = 7694233323) LYMPH % (test code = 20.0 % 736-9) MONO % (test code = 8.9 % 5905-5) EOS % (test code = 2.1 % 713-8) BASO % (test code = 0.6 % 706-2) GRAN MAT x10^3(ANC) 3.29 10*3/uL 1.99-6.95 (test code = 5574046050) IMM GRAN x10^3 (test <0.03 0-0.06 code = 2961810874) LYMPH x10^3 (test code 0.97 10*3/uL 1.09-3.23 L = 731-0) MONO x10^3 (test code 0.43 10*3/uL 0.36-1.02 = 742-7) EOS x10^3 (test code = 0.10 10*3/uL 0.06-0.53 711-2) BASO x10^3 (test code 0.03 10*3/uL 0.01-0.09 = 704-7) Lab Interpretation Abnormal (test code = 05649-1) [facility] Center[facility]MUNOLOGY2020-08-15 18:37:00 Test Item Value Reference Range Interpretation Comments Coronavirus (COVID-19) Not Detected DYLAN (test code = *NA*(12/05/19 1:37 PM) Coronavirus (COVID-19) DYLAN) [facility]odLXQGTWXCER0746-18-52 18:37:00 Test Item Value Reference Range Interpretation Comments Coronavirus (COVID-19) Not Detected DYLAN (test code = *NA*(12/05/19 1:37 PM) Coronavirus (COVID-19) DYLAN) [facility] ResourcesKxpaftcLWCQAYXHTM8305-38-42 17:53:00 Test Item Value Reference Range Interpretation Comments Coronavirus (COVID-19) Not Detected DYLAN (test code = *NA*(12/04/19 12:53 Coronavirus (COVID-19) PM) DYLAN) [facility] HospitalAlzxnciMUOXBELWDT1803-22-48 17:53:00 Test Item Value Reference Range Interpretation Comments Coronavirus (COVID-19) Not Detected DYLAN (test code = *NA*(12/04/19 12:53 Coronavirus (COVID-19) PM) DYLAN) [place] 998950-08-12 09:50:00 Test Item Value Reference Range Interpretation Comments Glucose Lvl (test code = Glucose Lvl) 85 70-99 [place] 998950-08-12 09:50:00 Test Item Value Reference Range Interpretation Comments BUN (test code = BUN) 18 7-22 [place] 998950-08-12 09:50:00 Test Item Value Reference Range Interpretation Comments Creatinine Lvl (test code = Creatinine 1.50 0.50-1.40 Lvl) [place] 998950-08-12 09:50:00 Test Item Value Reference Range Interpretation Comments Sodium Lvl (test code = Sodium Lvl) 146 135-145 [place] 998950-08-12 09:50:00 Test Item Value Reference Range Interpretation Comments Potassium Lvl (test code = Potassium 4.3 3.5-5.1 Lvl) [place] 998950-08-12 09:50:00 Test Item Value Reference Range Interpretation Comments Chloride Lvl (test code = Chloride Lvl) 112 95-109 [place] 998950-08-12 09:50:00 Test Item Value Reference Range Interpretation Comments CO2 (test code = CO2) 26 24-32 [place] 998950-08-12 09:50:00 Test Item Value Reference Range Interpretation Comments Calcium Lvl (test code = Calcium Lvl) 8.5 8.5-10.5 [place] 998950-08-12 09:50:00 Test Item Value Reference Range Interpretation Comments AGAP (test code = AGAP) 12.3 10.0-20.0 [place] 998950-08-12 09:50:00 Test Item Value Reference Range Interpretation Comments eGFR (test code = eGFR) 52 [place] 284500-08-12 09:50:00 Test Item Value Reference Range Interpretation Comments Segs (test code = Segs) 47.5 45.0-75.0 [place] 284500-08-12 09:50:00 Test Item Value Reference Range Interpretation Comments Lymphocytes (test code = Lymphocytes) 35.6 20.0-40.[address]08-12 09:50:00 Test Item Value Reference Range Interpretation Comments Monocytes (test code = Monocytes) 13.0 2.0-12.0 [place] [address]-08-12 09:50:00 Test Item Value Reference Range Interpretation Comments Eosinophils (test code = 2.9 See_Comment [A utomated message] The Eosinophils) system which ge nerated this result tra nsmitted reference range : <=4.0. The reference r yi was not used to int erpret this result as normal/abnormal . [place] [address]-08-12 09:50:00 Test Item Value Reference Range Interpretation Comments Basophils (test code = 1.0 See_Comment [Aut omated message] The Basophils) system which ge nerated this result tra nsmitted reference range : <=1.0. The reference r yi was not used to int erpret this result as normal/abnormal . [place] [address]-08-12 09:50:00 Test Item Value Reference Range Interpretation Comments Neutrophils # (test code = Neutrophils 3.1 1.5-8.1 #) [place] [address]-08-12 09:50:00 Test Item Value Reference Range Interpretation Comments Lymphocytes # (test code = Lymphocytes 2.4 1.0-5.5 #) [place] [address]-08-12 09:50:00 Test Item Value Reference Range Interpretation Comments Monocytes # (test code 0.9 See_Comment [Aut omated message] The = Monocytes #) system which generated this result tra nsmitted reference range : <=0.8. The reference r yi was not used to int erpret this result as normal/abnormal . [place] [address]-08-12 09:50:00 Test Item Value Reference Range Interpretation Comments Eosinophils # (test code 0.2 See_Comment [A utomated message] The = Eosinophils #) system whic h generated this result tra nsmitted reference range : <=0.5. The reference r yi was not used to int erpret this result as normal/abnormal . [place] [address]-08-12 09:50:00 Test Item Value Reference Range Interpretation Comments Basophils # (test code 0.1 See_Comment [Aut omated message] The = Basophils #) system which generated this result tra nsmitted reference range : <=0.2. The reference r yi was not used to int erpret this result as normal/abnormal . [facility]QiwlhrkITSZIHTBTN1675-39-70 09:50:00 Test Item Value Reference Range Interpretation Comments Microcyte (test code = 3+ *NA*(12/02/19 4:50 Microcyte) AM) [facility] HospitalVjozzhuSPGQGNIMGI0358-65-36 09:50:00 Test Item Value Reference Range Interpretation Comments Hypochrom (test code = 1+ (12/02/19 4:50 AM) Hypochrom) [facility] HospitalQpslkdeCZYAWPPMCL6712-08-91 09:50:00 Test Item Value Reference Range Interpretation Comments Target Cell (test code Moderate *ABN*(12/02/19 = Target Cell) 4:50 AM) [place] 284500-08-12 09:50:00 Test Item Value Reference Range Interpretation Comments Large Plt (test code Moderate *ABN*(12/02/19 = Large Plt) 4:50 AM) [facility] HospitalIooxchqOESNLSQERV7070-96-05 09:50:00 Test Item Value Reference Range Interpretation Comments WBC (test code = WBC) 6.6 3.7-10.4 [facility] HospitalRozicvvDLKRDDQUUK3911-98-85 09:50:00 Test Item Value Reference Range Interpretation Comments RBC (test code = RBC) 5.85 4.70-6.10 [facility] HospitalYkcoyapFQUAOHSWIX0632-37-96 09:50:00 Test Item Value Reference Range Interpretation Comments Hgb (test code = Hgb) 11.4 14.0-18.0 [place] 284500-08-12 09:50:00 Test Item Value Reference Range Interpretation Comments Hct (test code = Hct) 36.3 42.0-54.0 [place] 284500-08-12 09:50:00 Test Item Value Reference Range Interpretation Comments MCV (test code = MCV) 62.0 80.0-94.0 [place] [address]-08-12 09:50:00 Test Item Value Reference Range Interpretation Comments MCH (test code = MCH) 19.5 pg 27.0-31.0 [place] [address]-08-12 09:50:00 Test Item Value Reference Range Interpretation Comments MCHC (test code = MCHC) 31.4 32.0-36.0 [place] [address]-08-12 09:50:00 Test Item Value Reference Range Interpretation Comments RDW (test code = RDW) 16.3 11.5-14.5 [place] [address]-08-12 09:50:00 Test Item Value Reference Range Interpretation Comments Platelet (test code = Platelet) 171 133-450 [place] [address]-08-12 09:50:00 Test Item Value Reference Range Interpretation Comments MPV (test code = MPV) 9.0 7.4-10.4 [place] [address]-08-12 09:50:00 Test Item Value Reference Range Interpretation Comments MCV (test code = MCV) 62.0 80.0-94.0 [place] [address]-08-12 09:50:00 Test Item Value Reference Range Interpretation Comments MCH (test code = MCH) 19.5 pg 27.0-31.0 [place] [address]-08-12 09:50:00 Test Item Value Reference Range Interpretation Comments MCHC (test code = MCHC) 31.4 32.0-36.0 [place] [address]-08-12 09:50:00 Test Item Value Reference Range Interpretation Comments RDW (test code = RDW) 16.3 11.5-14.5 [place] [address]-08-12 09:50:00 Test Item Value Reference Range Interpretation Comments Platelet (test code = Platelet) 171 133-450 [place] 284500-08-12 09:50:00 Test Item Value Reference Range Interpretation Comments MPV (test code = MPV) 9.0 7.4-10.4 [facility]2020-08-12 09:50:00 Test Item Value Reference Range Interpretation Comments Glucose Lvl (test code = Glucose Lvl) 85 70-99 [place] 998950-08-12 09:50:00 Test Item Value Reference Range Interpretation Comments BUN (test code = BUN) 18 7-22 [place] [address]-08-12 09:50:00 Test Item Value Reference Range Interpretation Comments Creatinine Lvl (test code = Creatinine 1.50 0.50-1.40 Lvl) [place] 998950-08-12 09:50:00 Test Item Value Reference Range Interpretation Comments Sodium Lvl (test code = Sodium Lvl) 146 135-145 [place] 998950-08-12 09:50:00 Test Item Value Reference Range Interpretation Comments Potassium Lvl (test code = Potassium 4.3 3.5-5.1 Lvl) [place] 998950-08-12 09:50:00 Test Item Value Reference Range Interpretation Comments Chloride Lvl (test code = Chloride Lvl) 112 95-109 [place] 998950-08-12 09:50:00 Test Item Value Reference Range Interpretation Comments CO2 (test code = CO2) 26 24-32 [place] [address]-08-12 09:50:00 Test Item Value Reference Range Interpretation Comments Calcium Lvl (test code = Calcium Lvl) 8.5 8.5-10.5 [place] 998950-08-12 09:50:00 Test Item Value Reference Range Interpretation Comments AGAP (test code = AGAP) 12.3 10.0-20.0 [place] 998950-08-12 09:50:00 Test Item Value Reference Range Interpretation Comments eGFR (test code = eGFR) 52 [place] [address]-08-12 09:50:00 Test Item Value Reference Range Interpretation Comments Segs (test code = Segs) 47.5 45.0-75.0 [place] [address]-08-12 09:50:00 Test Item Value Reference Range Interpretation Comments Lymphocytes (test code = Lymphocytes) 35.6 20.0-40.0 [place] [address]-08-12 09:50:00 Test Item Value Reference Range Interpretation Comments Monocytes (test code = Monocytes) 13.0 2.0-12.0 [place] [address]-08-12 09:50:00 Test Item Value Reference Range Interpretation Comments Eosinophils (test code = Eosinophils) 2.9 <=4.0 [place] [address]-08-12 09:50:00 Test Item Value Reference Range Interpretation Comments Basophils (test code = Basophils) 1.0 <=1.0 [place] [address]-08-12 09:50:00 Test Item Value Reference Range Interpretation Comments Neutrophils # (test code = Neutrophils 3.1 1.5-8.1 #) [place] 284500-08-12 09:50:00 Test Item Value Reference Range Interpretation Comments Lymphocytes # (test code = Lymphocytes 2.4 1.0-5.5 #) [facility]25[facility] 09:50:00 Test Item Value Reference Range Interpretation Comments Monocytes # (test code = Monocytes #) 0.9 <=0.8 [facility]DqjntwdJEAJEOOTFX6921-15-57 09:50:00 Test Item Value Reference Range Interpretation Comments Eosinophils # (test code = Eosinophils 0.2 <=0.5 #) [facility] HospitalMhzswmyKLDQPDQBLA9857-79-19 09:50:00 Test Item Value Reference Range Interpretation Comments Basophils # (test code = Basophils #) 0.1 <=0.2 [place] 284500-08-12 09:50:00 Test Item Value Reference Range Interpretation Comments Microcyte (test code = 3+ *NA*(12/02/19 4:50 Microcyte) AM) [facility] Hospit[id number] 09:50:00 Test Item Value Reference Range Interpretation Comments Hypochrom (test code = 1+ (12/02/19 4:50 AM) Hypochrom) [facility] HospitalUywkxfkWLZERODDDA3785-31-11 09:50:00 Test Item Value Reference Range Interpretation Comments Target Cell (test code Moderate *ABN*(12/02/19 = Target Cell) 4:50 AM) [facility] HospitalShrnewmWNRKAWDSQV2829-35-57 09:50:00 Test Item Value Reference Range Interpretation Comments Large Plt (test code Moderate *ABN*(12/02/19 = Large Plt) 4:50 AM) [facility] HospitalAvyaauoKWFIIVRFOJ4117-78-46 09:50:00 Test Item Value Reference Range Interpretation Comments WBC (test code = WBC) 6.6 3.7-10.4 [facility] HospitalUeurnqbYAGMTLBYIU2538-46-37 09:50:00 Test Item Value Reference Range Interpretation Comments RBC (test code = RBC) 5.85 4.70-6.10 [place] 284500-08-12 09:50:00 Test Item Value Reference Range Interpretation Comments Hgb (test code = Hgb) 11.4 14.0-18.0 [place] [address]-08-12 09:50:00 Test Item Value Reference Range Interpretation Comments Hct (test code = Hct) 36.3 42.0-54.0 [facility]2020-08-10 11:25:00 Test Item Value Reference Range Interpretation Comments Glucose Lvl (test code = Glucose Lvl) 90 - [facility]2020-08-10 11:25:00 Test Item Value Reference Range Interpretation Comments BUN (test code = BUN) 13 11- [facility]2020-08-10 11:25:00 Test Item Value Reference Range Interpretation Comments Creatinine Lvl (test code = Creatinine 1.80 0.50-1.40 Lvl) [facility]2020-08-10 11:25:00 Test Item Value Reference Range Interpretation Comments Sodium Lvl (test code = Sodium Lvl) 145 135-145 [facility]2020-08-10 11:25:00 Test Item Value Reference Range Interpretation Comments Potassium Lvl (test code = Potassium 4.5 3.5-5.1 Lvl) [facility]2020-08-10 11:25:00 Test Item Value Reference Range Interpretation Comments Chloride Lvl (test code = Chloride Lvl) 113 95-109 [facility]2020-08-10 11:25:00 Test Item Value Reference Range Interpretation Comments CO2 (test code = CO2) 24 24-32 [facility]2020-08-10 11:25:00 Test Item Value Reference Range Interpretation Comments Calcium Lvl (test code = Calcium Lvl) 8.7 8.5-10.5 [facility]2020-08-10 11:25:00 Test Item Value Reference Range Interpretation Comments AGAP (test code = AGAP) 12.5 10.0-20.0 [facility]2020-08-10 11:25:00 Test Item Value Reference Range Interpretation Comments eGFR (test code = eGFR) 42 [facility]2020-08-10 11:25:00 Test Item Value Reference Range Interpretation Comments Glucose Lvl (test code = Glucose Lvl) 90 - [facility]2020-08-10 11:25:00 Test Item Value Reference Range Interpretation Comments BUN (test code = BUN) 13 11- [place] 998950-08-10 11:25:00 Test Item Value Reference Range Interpretation Comments Creatinine Lvl (test code = Creatinine 1.80 0.50-1.40 Lvl) [facility]2020-08-10 11:25:00 Test Item Value Reference Range Interpretation Comments Sodium Lvl (test code = Sodium Lvl) 145 135-145 [place] 998950-08-10 11:25:00 Test Item Value Reference Range Interpretation Comments Potassium Lvl (test code = Potassium 4.5 3.5-5.1 Lvl) [facility]2020-08-10 11:25:00 Test Item Value Reference Range Interpretation Comments Chloride Lvl (test code = Chloride Lvl) 113 95-109 [place] 998950-08-10 11:25:00 Test Item Value Reference Range Interpretation Comments CO2 (test code = CO2) 24 24-32 [place] 998950-08-10 11:25:00 Test Item Value Reference Range Interpretation Comments Calcium Lvl (test code = Calcium Lvl) 8.7 8.5-10.5 [place] 998950-08-10 11:25:00 Test Item Value Reference Range Interpretation Comments AGAP (test code = AGAP) 12.5 10.0-20.0 [facility]2020-08-10 11:25:00 Test Item Value Reference Range Interpretation Comments eGFR (test code = eGFR) 42 [facility]ayodbrQOMZQLLGVX3097-66-61 20:16:00 Test Item Value Reference Range Interpretation Comments Coronavirus (COVID-19) Detected DYLAN (test code = 5*ABN*(11/29/19 3:16 Coronavirus (COVID-19) PM) DYLAN) [facility]AqpdoiqSJIIZDYGPK8251-88-66 20:16:00 Test Item Value Reference Range Interpretation Comments Coronavirus (COVID-19) Detected DYLAN (test code = 5*ABN*(11/29/19 3:16 Coronavirus (COVID-19) PM) DYLAN) [facility]2020-08-09 15:19:00 Test Item Value Reference Range Interpretation Comments Iron (test code = Iron) 73 50-180 [facility]2020-08-09 15:19:00 Test Item Value Reference Range Interpretation Comments TIBC (test code = TIBC) 216 250-425 [facility]2020-08-09 15:19:00 Test Item Value Reference Range Interpretation Comments % Satur Fe (test code = % Satur Fe) 34 20-48 [facility]2020-08-09 15:19:00 Test Item Value Reference Range Interpretation Comments Iron (test code = Iron) 73 50-180 [facility]2020-08-09 15:19:00 Test Item Value Reference Range Interpretation Comments TIBC (test code = TIBC) 216 250-425 [facility]2020-08-09 15:19:00 Test Item Value Reference Range Interpretation Comments % Satur Fe (test code = % Satur Fe) 34 20-48 [facility] AND [id number] 14:58:00 Test Item Value Reference Range Interpretation Comments UA Turbidity (test code Slight *ABN*(11/29/19 = UA Turbidity) 9:58 AM) [facility] AND [id number] 14:58:00 Test Item Value Reference Range Interpretation Comments UA Spec Grav (test code = UA Spec 1.015 1 Grav) [facility] AND [id number] 14:58:00 Test Item Value Reference Range Interpretation Comments UA pH (test code = UA pH) 5.0 1 5.0-8.0 [facility] AND [id number] 14:58:00 Test Item Value Reference Range Interpretation Comments UA Protein (test code = UA Negative mg/dL Protein) [facility] AND [id number] 14:58:00 Test Item Value Reference Range Interpretation Comments UA Glucose (test code = UA Negative mg/dL Glucose) [facility] AND [id number] 14:58:00 Test Item Value Reference Range Interpretation Comments UA Ketones (test code = UA Negative mg/dL Ketones) [facility] AND [id number] 14:58:00 Test Item Value Reference Range Interpretation Comments UA Bili (test code = Negative *NA*(11/29/19 UA Bili) 9:58 AM) [facility] AND [id number] 14:58:00 Test Item Value Reference Range Interpretation Comments UA Blood (test code = Small *ABN*(11/29/19 UA Blood) 9:58 AM) [facility] AND [id number] 14:58:00 Test Item Value Reference Range Interpretation Comments UA Nitrite (test code Negative (11/29/19 9:58 = UA Nitrite) AM) [facility] AND [id number] 14:58:00 Test Item Value Reference Range Interpretation Comments UA Leuk Est (test Negative (11/29/19 9:58 code = UA Leuk Est) AM) [facility] AND [id number] 14:58:00 Test Item Value Reference Range Interpretation Comments UA Sq Epi (test code = UA Sq Occasional /LPF Epi) [facility] AND [id number] 14:58:00 Test Item Value Reference Range Interpretation Comments UA RBC (test code = 2 See_Comment [Automa casey message] The UA RBC) system which ge nerated this result transmit casey reference range : <=2. The reference range was not used to interpr et this result as thom l/abnormal. [facility] AND [id number] 14:58:00 Test Item Value Reference Range Interpretation Comments UA Mucus (test code = UA Mucus) Few /LPF [facility] AND [id number] 14:58:00 Test Item Value Reference Range Interpretation Comments UA Hyal Cast (test 9 See_Comment [Automat ed message] The code = UA Hyal Cast) system which generated this result transmit casey reference range : <=2. The reference range was not used to interpr et this result as thom l/abnormal. [facility] AND [id number] 14:58:00 Test Item Value Reference Range Interpretation Comments UA Color (test code = UA Color) Yellow [facility] AND [id number] 14:58:00 Test Item Value Reference Range Interpretation Comments UA Urobilinogen (test code = UA no gt 0.1-1.0 Urobilinogen) [facility] AND [id number] 14:58:00 Test Item Value Reference Range Interpretation Comments UA Turbidity (test code Slight *ABN*(11/29/19 = UA Turbidity) 9:58 AM) [facility] AND [id number] 14:58:00 Test Item Value Reference Range Interpretation Comments UA Spec Grav (test code = UA Spec 1.015 1 Grav) [facility] AND [id number] 14:58:00 Test Item Value Reference Range Interpretation Comments UA pH (test code = UA pH) 5.0 1 5.0-8.0 [facility] [id number] 14:58:00 Test Item Value Reference Range Interpretation Comments UA Protein (test code = UA Negative mg/dL Protein) [facility] [id number] 14:58:00 Test Item Value Reference Range Interpretation Comments UA Glucose (test code = UA Negative mg/dL Glucose) [facility] AND [id number] 14:58:00 Test Item Value Reference Range Interpretation Comments UA Ketones (test code = UA Negative mg/dL Ketones) [facility] AND [id number] 14:58:00 Test Item Value Reference Range Interpretation Comments UA Bili (test code = Negative *NA*(11/29/19 UA Bili) 9:58 AM) [facility] AND [id number] 14:58:00 Test Item Value Reference Range Interpretation Comments UA Blood (test code = Small *ABN*(11/29/19 UA Blood) 9:58 AM) [facility] AND [id number] 14:58:00 Test Item Value Reference Range Interpretation Comments UA Nitrite (test code Negative (11/29/19 9:58 = UA Nitrite) AM) [facility] AND [id number] 14:58:00 Test Item Value Reference Range Interpretation Comments UA Leuk Est (test Negative (11/29/19 9:58 code = UA Leuk Est) AM) [facility] AND [id number] 14:58:00 Test Item Value Reference Range Interpretation Comments UA Sq Epi (test code = UA Sq Occasional /LPF Epi) [facility] AND [id number] 14:58:00 Test Item Value Reference Range Interpretation Comments UA RBC (test code = UA RBC) 2 <=2 [facility] [id number] 14:58:00 Test Item Value Reference Range Interpretation Comments UA Mucus (test code = UA Mucus) Few /LPF [facility] AND [id number] 14:58:00 Test Item Value Reference Range Interpretation Comments UA Hyal Cast (test code = UA Hyal Cast) 9 <=2 [facility] [id number] 14:58:00 Test Item Value Reference Range Interpretation Comments UA Color (test code = UA Color) Yellow [facility] AND [id number] 14:58:00 Test Item Value Reference Range Interpretation Comments UA Urobilinogen (test code = UA no gt 0.1-1.0 Urobilinogen) [facility] [id number] 13:13:00 Test Item Value Reference Range Interpretation Comments Troponin-I (test code 0.04 See_Comment [Auto mated message] The = Troponin-I) system which g enerated this result transmit casey reference range : <=0.40. The reference r yi was not used to interpr et this result as thom l/abnormal. [facility] [id number] 13:13:00 Test Item Value Reference Range Interpretation Comments Troponin-I (test code = Troponin-I) 0.04 <=0.40 [facility] [id number] 09:43:00 Test Item Value Reference Range Interpretation Comments Troponin-I (test code 0.04 See_Comment [Auto mated message] The = Troponin-I) system which g enerated this result transmit casey reference range : <=0.40. The reference r yi was not used to interpr et this result as thom l/abnormal. [facility]2020-08-09 09:43:00 Test Item Value Reference Range Interpretation Comments Glucose Lvl (test code = Glucose Lvl) 99 70-99 [facility]2020-08-09 09:43:00 Test Item Value Reference Range Interpretation Comments BUN (test code = BUN) 29 7-22 [facility]2020-08-09 09:43:00 Test Item Value Reference Range Interpretation Comments Creatinine Lvl (test code = Creatinine 2.90 0.50-1.40 Lvl) [facility]2020-08-09 09:43:00 Test Item Value Reference Range Interpretation Comments Sodium Lvl (test code = Sodium Lvl) 141 135-145 [facility]2020-08-09 09:43:00 Test Item Value Reference Range Interpretation Comments Potassium Lvl (test code = Potassium 4.5 3.5-5.1 Lvl) [facility]2020-08-09 09:43:00 Test Item Value Reference Range Interpretation Comments Chloride Lvl (test code = Chloride Lvl) 107 95-109 [facility] [id number] 09:43:00 Test Item Value Reference Range Interpretation Comments CO2 (test code = CO2) 26 24-32 [place] 998950-08-09 09:43:00 Test Item Value Reference Range Interpretation Comments Calcium Lvl (test code = Calcium Lvl) 9.4 8.5-10.5 [place] 998950-08-09 09:43:00 Test Item Value Reference Range Interpretation Comments Total Protein (test code = Total 8.0 6.4-8.4 Protein) [facility]2020-08-09 09:43:00 Test Item Value Reference Range Interpretation Comments Albumin Lvl (test code = Albumin Lvl) 3.5 3.5-5.0 [facility] [id number] 09:43:00 Test Item Value Reference Range Interpretation Comments ALT (test code = ALT) 34 See_Comment [Auto mated message] The system which ge nerated this result transmit casey reference range : <=65. The reference range was not used to interpr et this result as thom l/abnormal. [facility] [id number] 09:43:00 Test Item Value Reference Range Interpretation Comments AST (test code = AST) 20 See_Comment [Auto mated message] The system which ge nerated this result transmit casey reference range : <=37. The reference range was not used to interpr et this result as thom l/abnormal. [place] 998950-08-09 09:43:00 Test Item Value Reference Range Interpretation Comments Alk Phos (test code = Alk Phos) 84 39-136 [facility] [id number] 09:43:00 Test Item Value Reference Range Interpretation Comments Bili Total (test code = Bili Total) 0.7 0.2-1.3 [facility] [id number] 09:43:00 Test Item Value Reference Range Interpretation Comments AGAP (test code = AGAP) 12.5 10.0-20.0 [facility] [id number] 09:43:00 Test Item Value Reference Range Interpretation Comments B/C Ratio (test code = B/C Ratio) 10 1 6-25 [facility] [id number] 09:43:00 Test Item Value Reference Range Interpretation Comments Globulin (test code = Globulin) 4.5 2.7-4.2 [place] 998950-08-09 09:43:00 Test Item Value Reference Range Interpretation Comments A/G Ratio (test code = A/G Ratio) 0.8 1 0.7-1.6 [place] [address]-08-09 09:43:00 Test Item Value Reference Range Interpretation Comments eGFR (test code = eGFR) 24 [place] 998950-08-09 09:43:00 Test Item Value Reference Range Interpretation Comments Magnesium Lvl (test code = Magnesium 2.1 1.8-2.4 Lvl) [place] 998950-08-09 09:43:00 Test Item Value Reference Range Interpretation Comments Phosphorus (test code = Phosphorus) 4.3 2.5-4.5 [place] 998950-08-09 09:43:00 Test Item Value Reference Range Interpretation Comments Procalcitonin Lvl (test 0.28 See_Comment [Au tomated message] code = Procalcitonin Lvl) Th e system which generated this result transmitted ref erence range: <=0.10. The reference range was not used to interpr et this result as normal/abnormal . [place] 998950-08-09 09:43:00 Test Item Value Reference Range Interpretation Comments Lactic Acid Lvl (test code = Lactic 1.5 0.5-2.2 Acid Lvl) [place] 284500-08-09 09:43:00 Test Item Value Reference Range Interpretation Comments Neutrophils # (test code = Neutrophils 8.0 1.5-8.1 #) [place] 284500-08-09 09:43:00 Test Item Value Reference Range Interpretation Comments Lymphocytes # (test code = Lymphocytes 1.4 1.0-5.5 #) [place] 284500-08-09 09:43:00 Test Item Value Reference Range Interpretation Comments Monocytes # (test code 0.8 See_Comment [Aut omated message] The = Monocytes #) system which generated this result tra nsmitted reference range : <=0.8. The reference r yi was not used to int erpret this result as normal/abnormal . [place] [address]-08-09 09:43:00 Test Item Value Reference Range Interpretation Comments Eosinophils # (test code 0.3 See_Comment [A utomated message] The = Eosinophils #) system whic h generated this result tra nsmitted reference range : <=0.5. The reference r yi was not used to int erpret this result as normal/abnormal . [facility] H[id number] 09:43:00 Test Item Value Reference Range Interpretation Comments Segs (test code = Segs) 76.0 45.0-75.0 [facility] H[id number] 09:43:00 Test Item Value Reference Range Interpretation Comments Bands (test code = 0.0 See_Comment [Automat ed message] The Bands) system which ge nerated this result transmit casey reference range : <=11.0. The reference r yi was not used to interpr et this result as thom l/abnormal. [facility] H[id number] 09:43:00 Test Item Value Reference Range Interpretation Comments Lymphocytes (test code = Lymphocytes) 12.0 20.0-40.0 [facility] H[id number] 09:43:00 Test Item Value Reference Range Interpretation Comments Monocytes (test code = Monocytes) 8.0 2.0-12.0 [facility] [id number] 09:43:00 Test Item Value Reference Range Interpretation Comments Eosinophils (test code = 3.0 See_Comment [A utomated message] The Eosinophils) system which ge nerated this result tra nsmitted reference range : <=4.0. The reference r yi was not used to int erpret this result as normal/abnormal . [facility] H[id number] 09:43:00 Test Item Value Reference Range Interpretation Comments Atypical Lymphs (test code = Atypical 1.0 Lymphs) [facility] Ho[id number] 09:43:00 Test Item Value Reference Range Interpretation Comments Plt Morph (test code = Normal (11/29/19 4:43 AM) Plt Morph) [facility] HospitalOhxpwmhHGXNSJAABX2686-39-93 09:43:00 Test Item Value Reference Range Interpretation Comments Microcyte (test code = 3+ *ABN*(11/29/19 4:43 Microcyte) AM) [facility] Hos[id number] 09:43:00 Test Item Value Reference Range Interpretation Comments Hypochrom (test code = 1+ (11/29/19 4:43 AM) Hypochrom) [facility] HospitalKpimofqYIWRKOYWCC4610-31-21 09:43:00 Test Item Value Reference Range Interpretation Comments Polychrom (test code = Moderate *ABN*(11/29/19 Polychrom) 4:43 AM) [facility] Hos[id number] 09:43:00 Test Item Value Reference Range Interpretation Comments Target Cell (test code Moderate *ABN*(11/29/19 = Target Cell) 4:43 AM) [facility] H[id number] 09:43:00 Test Item Value Reference Range Interpretation Comments Elliptocyte (test code = Slight *ABN*(11/29/19 Elliptocyte) 4:43 AM) [facility] HospitalQtbmwyrLCORWWKOME6375-51-31 09:43:00 Test Item Value Reference Range Interpretation Comments WBC (test code = WBC) 10.5 3.7-10.4 [facility] HospitalRmslzdpDCZVCHPEQJ3948-58-81 09:43:00 Test Item Value Reference Range Interpretation Comments RBC (test code = RBC) 6.37 4.70-6.10 [facility] H[id number] 09:43:00 Test Item Value Reference Range Interpretation Comments Hgb (test code = Hgb) 12.2 14.0-18.0 [facility] [facility]BtheowrFBCPTKRVYL8504-56-23 09:43:00 Test Item Value Reference Range Interpretation Comments Hct (test code = Hct) 39.4 42.0-54.0 [facility]AjmbxtkHXJATDESXJ9394-33-52 09:43:00 Test Item Value Reference Range Interpretation Comments MCV (test code = MCV) 61.8 80.0-94.0 [facility] HospitalWmfiehaPMGCONYXZU3554-16-62 09:43:00 Test Item Value Reference Range Interpretation Comments MCH (test code = MCH) 19.2 pg 27.0-31.0 [facility] HospitalTukrywwDAHQLDEDSP0343-08-75 09:43:00 Test Item Value Reference Range Interpretation Comments MCHC (test code = MCHC) 31.0 32.0-36.0 [facility] HospitalDdzwckyUAJMXEWNZD4429-65-13 09:43:00 Test Item Value Reference Range Interpretation Comments RDW (test code = RDW) 16.4 11.5-14.5 [facility] HospitalCfuhuzzYPHJSJCSAZ2488-23-08 09:43:00 Test Item Value Reference Range Interpretation Comments Platelet (test code = Platelet) 244 133-450 [facility] ResourcesVnwdzsuDEUXRTXUYL8738-78-79 09:43:00 Test Item Value Reference Range Interpretation Comments MPV (test code = MPV) 9.9 7.4-10.4 [facility] ResourcesCARDIAC NWEMCGW1087-69-33 09:43:00 Test Item Value Reference Range Interpretation Comments Troponin-I (test code = Troponin-I) 0.04 <=0.40 [facility] [id number] 09:43:00 Test Item Value Reference Range Interpretation Comments Glucose Lvl (test code = Glucose Lvl) 99 70-99 [facility] [id number] 09:43:00 Test Item Value Reference Range Interpretation Comments BUN (test code = BUN) 29 7-22 [facility]2020-08-09 09:43:00 Test Item Value Reference Range Interpretation Comments Creatinine Lvl (test code = Creatinine 2.90 0.50-1.40 Lvl) [facility] [id number] 09:43:00 Test Item Value Reference Range Interpretation Comments Sodium Lvl (test code = Sodium Lvl) 141 135-145 [facility] [id number] 09:43:00 Test Item Value Reference Range Interpretation Comments Potassium Lvl (test code = Potassium 4.5 3.5-5.1 Lvl) [facility] [id number] 09:43:00 Test Item Value Reference Range Interpretation Comments Chloride Lvl (test code = Chloride Lvl) 107 95-109 [facility] SFKDQ9913-66-39 09:43:00 Test Item Value Reference Range Interpretation Comments CO2 (test code = CO2) 26 24-32 [facility] [id number] 09:43:00 Test Item Value Reference Range Interpretation Comments Calcium Lvl (test code = Calcium Lvl) 9.4 8.5-10.5 [facility] [id number] 09:43:00 Test Item Value Reference Range Interpretation Comments Total Protein (test code = Total 8.0 6.4-8.4 Protein) [facility] [id number] 09:43:00 Test Item Value Reference Range Interpretation Comments Albumin Lvl (test code = Albumin Lvl) 3.5 3.5-5.0 [facility]2020-08-09 09:43:00 Test Item Value Reference Range Interpretation Comments ALT (test code = ALT) 34 <=65 [place] 998950-08-09 09:43:00 Test Item Value Reference Range Interpretation Comments AST (test code = AST) 20 <=37 [facility]2020-08-09 09:43:00 Test Item Value Reference Range Interpretation Comments Alk Phos (test code = Alk Phos) 84 39-136 [facility]2020-08-09 09:43:00 Test Item Value Reference Range Interpretation Comments Bili Total (test code = Bili Total) 0.7 0.2-1.3 [place] 998950-08-09 09:43:00 Test Item Value Reference Range Interpretation Comments AGAP (test code = AGAP) 12.5 10.0-20.0 [place] 998950-08-09 09:43:00 Test Item Value Reference Range Interpretation Comments B/C Ratio (test code = B/C Ratio) 10 1 6-25 [place] 998950-08-09 09:43:00 Test Item Value Reference Range Interpretation Comments Globulin (test code = Globulin) 4.5 2.7-4.2 [facility]2020-08-09 09:43:00 Test Item Value Reference Range Interpretation Comments A/G Ratio (test code = A/G Ratio) 0.8 1 0.7-1.6 [place] 998950-08-09 09:43:00 Test Item Value Reference Range Interpretation Comments eGFR (test code = eGFR) 24 [facility]2020-08-09 09:43:00 Test Item Value Reference Range Interpretation Comments Magnesium Lvl (test code = Magnesium 2.1 1.8-2.4 Lvl) [facility]2020-08-09 09:43:00 Test Item Value Reference Range Interpretation Comments Phosphorus (test code = Phosphorus) 4.3 2.5-4.5 [place] 998950-08-09 09:43:00 Test Item Value Reference Range Interpretation Comments Procalcitonin Lvl (test code = 0.28 <=0.10 Procalcitonin Lvl) [place] [address]-08-09 09:43:00 Test Item Value Reference Range Interpretation Comments Lactic Acid Lvl (test code = Lactic 1.5 0.5-2.2 Acid Lvl) [facility] HospitalGujjhdrIXJLKXOPRN0055-13-04 09:43:00 Test Item Value Reference Range Interpretation Comments Neutrophils # (test code = Neutrophils 8.0 1.5-8.1 #) [facility] HospitalXrkfefgMVPROCFPVG3970-11-24 09:43:00 Test Item Value Reference Range Interpretation Comments Lymphocytes # (test code = Lymphocytes 1.4 1.0-5.5 #) [facility] HospitalQqhajkyOCQQOALPPH6328-76-48 09:43:00 Test Item Value Reference Range Interpretation Comments Monocytes # (test code = Monocytes #) 0.8 <=0.8 [place] 284500-08-09 09:43:00 Test Item Value Reference Range Interpretation Comments Eosinophils # (test code = Eosinophils 0.3 <=0.5 #) [facility] HospitalZnsqxoqTDABXCHKOH3360-80-18 09:43:00 Test Item Value Reference Range Interpretation Comments Segs (test code = Segs) 76.0 45.0-75.0 [place] 284500-08-09 09:43:00 Test Item Value Reference Range Interpretation Comments Bands (test code = Bands) 0.0 <=11.0 [facility] HospitalMxoqeqqTVXJRWGCJD9644-80-59 09:43:00 Test Item Value Reference Range Interpretation Comments Lymphocytes (test code = Lymphocytes) 12.0 20.0-40.0 [facility] HospitalNoenoinWBAUUKAGPY5455-71-34 09:43:00 Test Item Value Reference Range Interpretation Comments Monocytes (test code = Monocytes) 8.0 2.0-12.0 [place] 284500-08-09 09:43:00 Test Item Value Reference Range Interpretation Comments Eosinophils (test code = Eosinophils) 3.0 <=4.0 [place] 284500-08-09 09:43:00 Test Item Value Reference Range Interpretation Comments Atypical Lymphs (test code = Atypical 1.0 Lymphs) [facility] HospitalYxjermwASKORGYSRI4155-40-49 09:43:00 Test Item Value Reference Range Interpretation Comments Plt Morph (test code = Normal (11/29/19 4:43 AM) Plt Morph) [facility] HospitalKlqqbgqKLAPENKDYB0754-44-21 09:43:00 Test Item Value Reference Range Interpretation Comments Microcyte (test code = 3+ *ABN*(11/29/19 4:43 Microcyte) AM) [facility] HospitalAsovacgTDZXKIKBSJ1660-22-51 09:43:00 Test Item Value Reference Range Interpretation Comments Hypochrom (test code = 1+ (11/29/19 4:43 AM) Hypochrom) [facility] HospitalMuovrwdXULWERWYQU0842-83-67 09:43:00 Test Item Value Reference Range Interpretation Comments Polychrom (test code = Moderate *ABN*(11/29/19 Polychrom) 4:43 AM) [facility] HospitalQwuzewvDSKJJQJYMX8736-92-64 09:43:00 Test Item Value Reference Range Interpretation Comments Target Cell (test code Moderate *ABN*(11/29/19 = Target Cell) 4:43 AM) [facility] HospitalKxybwneZWVWNORXOR2712-08-10 09:43:00 Test Item Value Reference Range Interpretation Comments Elliptocyte (test code = Slight *ABN*(11/29/19 Elliptocyte) 4:43 AM) [facility] HospitalDfatowjDHLRYWXXLL6178-35-72 09:43:00 Test Item Value Reference Range Interpretation Comments WBC (test code = WBC) 10.5 3.7-10.4 [facility] HospitalZqgcrroLFZJEMLKCW3430-24-69 09:43:00 Test Item Value Reference Range Interpretation Comments RBC (test code = RBC) 6.37 4.70-6.10 [facility] HospitalOybnfdeURBYSVJQUZ4155-61-42 09:43:00 Test Item Value Reference Range Interpretation Comments Hgb (test code = Hgb) 12.2 14.0-18.0 [facility] HospitalHknoxfkRWGAPVSTKN4792-88-11 09:43:00 Test Item Value Reference Range Interpretation Comments Hct (test code = Hct) 39.4 42.0-54.0 [facility] HospitalMdnqpjmPFJZSRCZYG5316-76-73 09:43:00 Test Item Value Reference Range Interpretation Comments MCV (test code = MCV) 61.8 80.0-94.0 [facility] HospitalNwbwajqXCFZPBCVJC1532-58-43 09:43:00 Test Item Value Reference Range Interpretation Comments MCH (test code = MCH) 19.2 pg 27.0-31.0 [place] 284500-08-09 09:43:00 Test Item Value Reference Range Interpretation Comments MCHC (test code = MCHC) 31.0 32.0-36.0 [facility] ResourcesJcwvixpSQKSMDNYEE8543-44-90 09:43:00 Test Item Value Reference Range Interpretation Comments RDW (test code = RDW) 16.4 11.5-14.5 [facility] ResourcesMconbeeIWEKYTPLRZ8429-72-80 09:43:00 Test Item Value Reference Range Interpretation Comments Platelet (test code = Platelet) 244 133-450 [facility] ResourcesHtjsojaGQSBTRIIKV9458-71-11 09:43:00 Test Item Value Reference Range Interpretation Comments MPV (test code = MPV) 9.9 7.4-10.4 [facility]udaQlemplrBXWYQCIXPW1509-15-61 05:59:00 Test Item Value Reference Range Interpretation Comments Coronavirus (COVID-19) Not Detected (11/29/19 DYLAN (test code = 12:59 AM) Coronavirus (COVID-19) DYLAN) [facility] ResourcesEamssbwCYGPXSSRWI8028-80-26 05:59:00 Test Item Value Reference Range Interpretation Comments Coronavirus (COVID-19) Not Detected (11/29/19 DYLAN (test code = 12:59 AM) Coronavirus (COVID-19) DYLAN) [facility] BudaKeyViewAC RCQZGON9600-06-02 02:39:00 Test Item Value Reference Range Interpretation Comments Total CK (test code = Total CK) 130 12-191 [facility]uda[facility]AC OGDSMPZ5316-09-78 02:39:00 Test Item Value Reference Range Interpretation Comments Troponin-I (test code 0.04 See_Comment [Auto mated message] The = Troponin-I) system which g enerated this result transmit casey reference range : <=0.40. The reference r yi was not used to interpr et this result as thom l/abnormal. [facility] [employer] NTZSCIE3521-51-51 02:39:00 Test Item Value Reference Range Interpretation Comments BNP (test code = BNP) 198 [facility] [employer] [id number] 02:39:00 Test Item Value Reference Range Interpretation Comments Total Protein (test code = Total 8.5 6.4-8.4 Protein) [facility] [employer] BZLYH1696-92-16 02:39:00 Test Item Value Reference Range Interpretation Comments Albumin Lvl (test code = Albumin Lvl) 3.6 3.5-5.0 [facility] [employer] [id number] 02:39:00 Test Item Value Reference Range Interpretation Comments ALT (test code = ALT) 33 See_Comment [Auto mated message] The system which ge nerated this result transmit casey reference range : <=65. The reference range was not used to interpr et this result as thom l/abnormal. [facility] [employer] FZSNL7144-23-55 02:39:00 Test Item Value Reference Range Interpretation Comments AST (test code = AST) 24 See_Comment [Auto mated message] The system which ge nerated this result transmit casey reference range : <=37. The reference range was not used to interpr et this result as thom l/abnormal. [employer] IHUAE2482-08-39 02:39:00 Test Item Value Reference Range Interpretation Comments Alk Phos (test code = Alk Phos) 81 39-136 [facility] [employer] [id number] 02:39:00 Test Item Value Reference Range Interpretation Comments Bili Total (test code = Bili Total) 0.7 0.2-1.3 [facility] [employer] [id number] 02:39:00 Test Item Value Reference Range Interpretation Comments Bili Direct (test code 0.2 See_Comment [Aut omated message] The = Bili Direct) system which generated this result tra nsmitted reference range : <=0.3. The reference r yi was not used to int erpret this result as thom l/abnormal. [facility] [employer] [id number] 02:39:00 Test Item Value Reference Range Interpretation Comments Bili Indirect (test 0.5 See_Comment [Automa casey message] The code = Bili Indirect) system which generated this result tra nsmitted reference range : <=1.0. The reference r yi was not used to int erpret this result as normal/abnormal . [facility] [employer] [id number] 02:39:00 Test Item Value Reference Range Interpretation Comments Globulin (test code = Globulin) 4.9 2.7-4.2 [facility] [employer] [id number] 02:39:00 Test Item Value Reference Range Interpretation Comments A/G Ratio (test code = A/G Ratio) 0.7 1 0.7-1.6 [facility] [employer] [id number] 02:39:00 Test Item Value Reference Range Interpretation Comments Magnesium Lvl (test code = Magnesium 2.4 1.8-2.4 Lvl) [place] 998950-08-09 02:39:00 Test Item Value Reference Range Interpretation Comments Glucose Lvl (test code = Glucose Lvl) 97 70-99 [place] 998950-08-09 02:39:00 Test Item Value Reference Range Interpretation Comments BUN (test code = BUN) 26 7-22 [place] 998950-08-09 02:39:00 Test Item Value Reference Range Interpretation Comments Creatinine Lvl (test code = Creatinine 3.40 0.50-1.40 Lvl) [place] 998950-08-09 02:39:00 Test Item Value Reference Range Interpretation Comments Sodium Lvl (test code = Sodium Lvl) 145 135-145 [place] 998950-08-09 02:39:00 Test Item Value Reference Range Interpretation Comments Potassium Lvl (test code = Potassium 4.0 3.5-5.1 Lvl) [place] 998950-08-09 02:39:00 Test Item Value Reference Range Interpretation Comments Chloride Lvl (test code = Chloride Lvl) 111 95-109 [place] 998950-08-09 02:39:00 Test Item Value Reference Range Interpretation Comments CO2 (test code = CO2) 26 24-32 [place] 998950-08-09 02:39:00 Test Item Value Reference Range Interpretation Comments Calcium Lvl (test code = Calcium Lvl) 10.4 8.5-10.5 [place] 998950-08-09 02:39:00 Test Item Value Reference Range Interpretation Comments AGAP (test code = AGAP) 12.0 10.0-20.0 [place] 998950-08-09 02:39:00 Test Item Value Reference Range Interpretation Comments eGFR (test code = eGFR) 19 [facility] HospitalHheerrvTSGTQJZKDS4409-36-51 02:39:00 Test Item Value Reference Range Interpretation Comments WBC (test code = WBC) 10.5 3.7-10.4 [place] 284500-08-09 02:39:00 Test Item Value Reference Range Interpretation Comments RBC (test code = RBC) 6.24 4.70-6.10 [place] 284500-08-09 02:39:00 Test Item Value Reference Range Interpretation Comments Hgb (test code = Hgb) 12.1 14.0-18.0 [facility] HospitalZnikjpfKIOUJNBEWS1919-14-35 02:39:00 Test Item Value Reference Range Interpretation Comments Hct (test code = Hct) 39.8 42.0-54.0 [facility] HospitalMlnmazqDTGEIJKZNQ7429-86-59 02:39:00 Test Item Value Reference Range Interpretation Comments MCV (test code = MCV) 63.8 80.0-94.0 [facility] HospitalYgnalpnUAOUOXHPMI4674-44-63 02:39:00 Test Item Value Reference Range Interpretation Comments MCH (test code = MCH) 19.3 pg 27.0-31.0 [facility] HospitalBtwulcqIVVAGOBBWA7467-70-96 02:39:00 Test Item Value Reference Range Interpretation Comments MCHC (test code = MCHC) 30.3 32.0-36.0 [facility] HospitalUlrpgdvPHIOPMTTJW6191-04-52 02:39:00 Test Item Value Reference Range Interpretation Comments RDW (test code = RDW) 16.5 11.5-14.5 [facility] HospitalBdmjhjyZVCOOBTQPP3948-04-44 02:39:00 Test Item Value Reference Range Interpretation Comments Platelet (test code = Platelet) 253 133-450 [facility] HospitalGeqcdgxOSLYXFFTOQ9536-82-19 02:39:00 Test Item Value Reference Range Interpretation Comments MPV (test code = MPV) 9.4 7.4-10.4 [facility] HospitalJqxyjlcXLZVZACVFJ7823-95-31 02:39:00 Test Item Value Reference Range Interpretation Comments PT (test code = PT) 14.3 s 12.0-14.7 [facility] HospitalGkmjptqZQUBQAOSKM3573-60-54 02:39:00 Test Item Value Reference Range Interpretation Comments INR (test code = INR) 1.11 1 0.85-1.17 [facility] HospitalNwfhlexDUCCVYRIIY3538-39-30 02:39:00 Test Item Value Reference Range Interpretation Comments PTT (test code = PTT) 28.6 s 22.9-35.8 [facility] HospitalWlubveeDLIXAZQGKW5655-52-11 02:39:00 Test Item Value Reference Range Interpretation Comments Neutrophils # (test code = Neutrophils 8.4 1.5-8.1 #) [facility] HospitalPwkzbwtFJDWIEYRIA7162-65-56 02:39:00 Test Item Value Reference Range Interpretation Comments Lymphocytes # (test code = Lymphocytes 1.3 1.0-5.5 #) [facility] HospitalCwkpbmnHDPIQKFLXL5078-63-65 02:39:00 Test Item Value Reference Range Interpretation Comments Monocytes # (test code 0.7 See_Comment [Aut omated message] The = Monocytes #) system which generated this result tra nsmitted reference range : <=0.8. The reference r yi was not used to int erpret this result as normal/abnormal . [facility] HospitalLootbdlRQZECTQAJD4825-99-16 02:39:00 Test Item Value Reference Range Interpretation Comments Basophils # (test code 0.1 See_Comment [Aut omated message] The = Basophils #) system which generated this result tra nsmitted reference range : <=0.2. The reference r yi was not used to int erpret this result as normal/abnormal . [facility] HospitalBcnjwnyMOFHIHPGDL6927-19-44 02:39:00 Test Item Value Reference Range Interpretation Comments Segs (test code = Segs) 77.0 45.0-75.0 [facility] HospitalCfifqjyYDFMJXXUPF5222-08-40 02:39:00 Test Item Value Reference Range Interpretation Comments Bands (test code = 3.0 See_Comment [Automat ed message] The Bands) system which ge nerated this result transmit casey reference range : <=11.0. The reference r yi was not used to interpr et this result as thom l/abnormal. [facility] HospitalFfmwmaoHQVPOGZJXA4086-30-46 02:39:00 Test Item Value Reference Range Interpretation Comments Lymphocytes (test code = Lymphocytes) 12.0 20.0-40.0 [facility] HospitalTujiiysYCTOWZNVFS2202-75-12 02:39:00 Test Item Value Reference Range Interpretation Comments Monocytes (test code = Monocytes) 7.0 2.0-12.0 [place] 284500-08-09 02:39:00 Test Item Value Reference Range Interpretation Comments Basophils (test code = 1.0 See_Comment [Aut omated message] The Basophils) system which ge nerated this result tra nsmitted reference range : <=1.0. The reference r yi was not used to int erpret this result as normal/abnormal . [facility] HospitalHqvgxtaQENIAZNXWH2367-90-94 02:39:00 Test Item Value Reference Range Interpretation Comments Atypical Lymphs (test code = Atypical 0.0 Lymphs) [facility]TOX[facility]UU[facility]446[facility] 02:39:00 Test Item Value Reference Range Interpretation Comments Anisocyte (test code = 1+ *ABN*(11/28/19 9:39 Anisocyte) PM) [facility]XqtpargLTPFHASVEF8578-18-04 02:39:00 Test Item Value Reference Range Interpretation Comments Microcyte (test code = 2+ *ABN*(11/28/19 9:39 Microcyte) PM) [facility]PxkfmbkGONGYFQVOT6167-78-95 02:39:00 Test Item Value Reference Range Interpretation Comments Hypochrom (test code = 1+ (11/28/19 9:39 PM) Hypochrom) [facility]JrhbflqKWYALBIXGR5336-98-99 02:39:00 Test Item Value Reference Range Interpretation Comments Polychrom (test code = Moderate *ABN*(11/28/19 Polychrom) 9:39 PM) [facility]MqbarzpJAIEBFGWKK2931-97-65 02:39:00 Test Item Value Reference Range Interpretation Comments Target Cell (test code Moderate *ABN*(11/28/19 = Target Cell) 9:39 PM) [facility]EnfuofrIMYLEKNYXD7816-70-59 02:39:00 Test Item Value Reference Range Interpretation Comments Large Plt (test code Moderate *ABN*(11/28/19 = Large Plt) 9:39 PM) [facility] ResourcesNew Dynamic Education GroupAC YLHIRBI0837-21-90 02:39:00 Test Item Value Reference Range Interpretation Comments Total CK (test code = Total CK) 130 12-191 [facility] TVBXQDI7204-14-79 02:39:00 Test Item Value Reference Range Interpretation Comments Troponin-I (test code = Troponin-I) 0.04 <=0.40 [facility] NAUHLKI0147-25-36 02:39:00 Test Item Value Reference Range Interpretation Comments BNP (test code = BNP) 198 [facility] BudaSumo Insight Ltd CIWRX9098-93-83 02:39:00 Test Item Value Reference Range Interpretation Comments Total Protein (test code = Total 8.5 6.4-8.4 Protein) [facility] CPGWF8494-73-22 02:39:00 Test Item Value Reference Range Interpretation Comments Albumin Lvl (test code = Albumin Lvl) 3.6 3.5-5.0 [facility] SFQNA2513-06-49 02:39:00 Test Item Value Reference Range Interpretation Comments ALT (test code = ALT) 33 <=65 [place] 998950-08-09 02:39:00 Test Item Value Reference Range Interpretation Comments AST (test code = AST) 24 <=37 [facility]2020-08-09 02:39:00 Test Item Value Reference Range Interpretation Comments Alk Phos (test code = Alk Phos) 81 39-136 [facility]2020-08-09 02:39:00 Test Item Value Reference Range Interpretation Comments Bili Total (test code = Bili Total) 0.7 0.2-1.3 [facility]2020-08-09 02:39:00 Test Item Value Reference Range Interpretation Comments Bili Direct (test code = Bili Direct) 0.2 <=0.3 [place] 998950-08-09 02:39:00 Test Item Value Reference Range Interpretation Comments Bili Indirect (test code = Bili 0.5 <=1.0 Indirect) [facility]2020-08-09 02:39:00 Test Item Value Reference Range Interpretation Comments Globulin (test code = Globulin) 4.9 2.7-4.2 [facility]2020-08-09 02:39:00 Test Item Value Reference Range Interpretation Comments A/G Ratio (test code = A/G Ratio) 0.7 1 0.7-1.6 [place] 998950-08-09 02:39:00 Test Item Value Reference Range Interpretation Comments Magnesium Lvl (test code = Magnesium 2.4 1.8-2.4 Lvl) [facility]2020-08-09 02:39:00 Test Item Value Reference Range Interpretation Comments Glucose Lvl (test code = Glucose Lvl) 97 70-99 [place] 998950-08-09 02:39:00 Test Item Value Reference Range Interpretation Comments BUN (test code = BUN) 26 7-22 [facility]2020-08-09 02:39:00 Test Item Value Reference Range Interpretation Comments Creatinine Lvl (test code = Creatinine 3.40 0.50-1.40 Lvl) [place] 998950-08-09 02:39:00 Test Item Value Reference Range Interpretation Comments Sodium Lvl (test code = Sodium Lvl) 145 135-145 [place] 998950-08-09 02:39:00 Test Item Value Reference Range Interpretation Comments Potassium Lvl (test code = Potassium 4.0 3.5-5.1 Lvl) [facility]2020-08-09 02:39:00 Test Item Value Reference Range Interpretation Comments Chloride Lvl (test code = Chloride Lvl) 111 95-109 [place] 998950-08-09 02:39:00 Test Item Value Reference Range Interpretation Comments CO2 (test code = CO2) 26 24-32 [place] 998950-08-09 02:39:00 Test Item Value Reference Range Interpretation Comments Calcium Lvl (test code = Calcium Lvl) 10.4 8.5-10.5 [place] 998950-08-09 02:39:00 Test Item Value Reference Range Interpretation Comments AGAP (test code = AGAP) 12.0 10.0-20.0 [place] 998950-08-09 02:39:00 Test Item Value Reference Range Interpretation Comments eGFR (test code = eGFR) 19 [facility] HospitalQgucdbmDMACAQHUGJ3048-76-55 02:39:00 Test Item Value Reference Range Interpretation Comments WBC (test code = WBC) 10.5 3.7-10.4 [place] 284500-08-09 02:39:00 Test Item Value Reference Range Interpretation Comments RBC (test code = RBC) 6.24 4.70-6.10 [place] 284500-08-09 02:39:00 Test Item Value Reference Range Interpretation Comments Hgb (test code = Hgb) 12.1 14.0-18.0 [place] 284500-08-09 02:39:00 Test Item Value Reference Range Interpretation Comments Hct (test code = Hct) 39.8 42.0-54.0 [facility] [place] [address]-08-09 02:39:00 Test Item Value Reference Range Interpretation Comments MCV (test code = MCV) 63.8 80.0-94.0 [place] [address]32-08-09 02:39:00 Test Item Value Reference Range Interpretation Comments MCH (test code = MCH) 19.3 pg 27.0-31.0 [place] 284500-08-09 02:39:00 Test Item Value Reference Range Interpretation Comments MCHC (test code = MCHC) 30.3 32.0-36.0 [facility]FptjrdlCXYJUEDHGE5214-51-71 02:39:00 Test Item Value Reference Range Interpretation Comments RDW (test code = RDW) 16.5 11.5-14.5 [facility] HospitalVxsvaveRXJHCRXFKS3213-75-16 02:39:00 Test Item Value Reference Range Interpretation Comments Platelet (test code = Platelet) 253 133-450 [facility] HospitalZszfrttZIWRXTMSEA5692-69-28 02:39:00 Test Item Value Reference Range Interpretation Comments MPV (test code = MPV) 9.4 7.4-10.4 [facility] HospitalVgxiaxnBNKFZSYAJU9292-15-38 02:39:00 Test Item Value Reference Range Interpretation Comments PT (test code = PT) 14.3 s 12.0-14.7 [facility] HospitalSxzkdnwXMYRFQKNPH7299-49-41 02:39:00 Test Item Value Reference Range Interpretation Comments INR (test code = INR) 1.11 1 0.85-1.17 [facility] HospitalWrozzeqQNZUTRPKQH8915-25-34 02:39:00 Test Item Value Reference Range Interpretation Comments PTT (test code = PTT) 28.6 s 22.9-35.8 [facility] HospitalAoepgbcYJYBKWYQYT2929-72-15 02:39:00 Test Item Value Reference Range Interpretation Comments Neutrophils # (test code = Neutrophils 8.4 1.5-8.1 #) [facility] HospitalDybevcrDKFGTFZGJO8681-59-61 02:39:00 Test Item Value Reference Range Interpretation Comments Lymphocytes # (test code = Lymphocytes 1.3 1.0-5.5 #) [facility] HospitalGfbeffgKHCYQXWTLH3068-27-66 02:39:00 Test Item Value Reference Range Interpretation Comments Monocytes # (test code = Monocytes #) 0.7 <=0.8 [place] 284500-08-09 02:39:00 Test Item Value Reference Range Interpretation Comments Basophils # (test code = Basophils #) 0.1 <=0.2 [place] 284500-08-09 02:39:00 Test Item Value Reference Range Interpretation Comments Segs (test code = Segs) 77.0 45.0-75.0 [place] 284500-08-09 02:39:00 Test Item Value Reference Range Interpretation Comments Bands (test code = Bands) 3.0 <=11.0 [facility] 02:39:00 Test Item Value Reference Range Interpretation Comments Lymphocytes (test code = Lymphocytes) 12.0 20.0-40.0 [facility]xuhzjmGYMOQAAHPX9397-22-37 02:39:00 Test Item Value Reference Range Interpretation Comments Monocytes (test code = Monocytes) 7.0 2.0-12.0 [facility] HospitalQtlrrvrGOVWPQBBIA8715-82-64 02:39:00 Test Item Value Reference Range Interpretation Comments Basophils (test code = Basophils) 1.0 <=1.0 [facility] HospitalPvofuqrMDUYLMTPGC6080-39-25 02:39:00 Test Item Value Reference Range Interpretation Comments Atypical Lymphs (test code = Atypical 0.0 Lymphs) [facility] HospitalMfgajusHQSLCUXOOC7738-79-80 02:39:00 Test Item Value Reference Range Interpretation Comments Anisocyte (test code = 1+ *ABN*(11/28/19 9:39 Anisocyte) PM) [facility] HospitalOuunncxVGXETDNWKP4785-54-67 02:39:00 Test Item Value Reference Range Interpretation Comments Microcyte (test code = 2+ *ABN*(11/28/19 9:39 Microcyte) PM) [facility] HospitalQmjleveUUDPRBISRE6242-72-59 02:39:00 Test Item Value Reference Range Interpretation Comments Hypochrom (test code = 1+ (11/28/19 9:39 PM) Hypochrom) [facility] HospitalRkxikdfOKSRQDOEQQ7232-96-81 02:39:00 Test Item Value Reference Range Interpretation Comments Polychrom (test code = Moderate *ABN*(11/28/19 Polychrom) 9:39 PM) [facility] HospitalMiukjaeLXJYXKDNBY5953-11-11 02:39:00 Test Item Value Reference Range Interpretation Comments Target Cell (test code Moderate *ABN*(11/28/19 = Target Cell) 9:39 PM) [facility] HospitalOrkygvuVMHRIQKTPL2556-60-58 02:39:00 Test Item Value Reference Range Interpretation Comments Large Plt (test code Moderate *ABN*(11/28/19 = Large Plt) 9:39 PM) [place] [address] qchg8269-38-11 05:13:04 Test Item Value Reference Range Interpretation Comments Ventricular rate (test code = 253) Atrial rate (test code = 255) CO interval (test code = 266) QRSD interval (test code = 260) QT interval (test code = 264) QTC interval (test code = 265) P axis 1 (test code = 267) QRS axis 1 (test code = 268) T wave axis (test code = 270) EKG impression (test code = 273) [facility], (w Contrast, Strain and 3D if needed)2019-11-25 17:55:40 Test Item Value Reference Range Interpretation Comments Ao Root Diameter (test code = 2.83 cm 0332635179) AoV Area, Vmax (test code = 1.39 cm2 3464737675) AoV Area, VTI (test code = 1.58 cm2 3632889800) AoV Mean PG (test code = mmHg 7057032996) AoV Peak PG (test code = mmHg 7848074029) AoV Vmax (test code = 0859057107) 3.05 m/s AoV VTI (test code = 2539990578) 0.66 m IVS,d (test code = 2083680550) 1.38 cm IVS/LVPW,2D (test code = 7057742135) Left Atrium Dimension Anterior 4.31 cm (test code = 7512083080) LA Area d A4C (test code = 30.64 cm2 6724569906) LV,d (test code = 9235074659) 5.20 cm LV EF,2D (test code = 5035516904) 50.66 % LV,s (test code = 0082164537) 4.11 cm LVOT area (test code = 5858762586) 3.59 cm2 LVOT Diam,S (test code = 2.14 cm 6354648322) LVOT Vmax (test code = 8890964944) 1.15 m/s LVOT VTI (test code = 9718477682) 0.31 m LVPWD,d (test code = 5963585622) 1.09 cm AR Press Half Time (test code = 661.06 ms 8699212238) MV E A ratio (test code = 4789451775) E wave decelartion time (test code msec = 7491884982) MV Peak A Levon (test code = 0.96 m/s 8767756053) MV valve area p 1/2 method (test 2.63 cm2 code = 8768987773) MV Peak E Levon (test code = 0.74 m/s 1925341356) MV stenosis pressure 1/2 time (test 83.52 ms code = 2796609360) AV LVOT peak gradient (test code = mmHg 2421735208) Ao Root Diameter (test code = 2.83 cm 6324283294) MV mean gradient (test code = mmHg 5819985857) LV SYS VOL (test code = 7071767590) 74.48 ml LV DEE VOL (test code = 129.29 ml 6423288002) LV SV Teich 2D (test code = 54.81 ml 6221683440) LV Vol s Teich PSAX (test code = 74.48 ml 0310742184) MR peak grad (test code = mmHg 4855905796) MV Vmax (test code = 8853986972) 0.98 m MV VTI Tips (test code = 0.31 m 2311463644) AoV Vmn (test code = 0316104050) LV FS Teich 2D (test code = 9021519527) MV AE ratio (test code = 4482875100) AR slope (test code = 9279582462) Ar Vmax (test code = 2095947159) LV FS Cube 2D (test code = 2329409538) LVOT Vmn (test code = 6650042816) Aov area Vmn (test code = 1.29 cm2 2071821608) LA Vol d MOD A4C (test code = 113.22 ml 7829642575) LVOT mean grad (test code = mmHg 7357587952) MAX Pred HR (test code = 4467254573) 85 of MPHR (test code = 5679083235) AR DT (test code = 0369464229) msec AR pk grad (test code = 6276640558) mmHg Calc MPHR (test code = 0201959810) bpm LV SV Cube 2D (test code = 71.07 ml 2798183301) LV vol d cube 2D (test code = 140.30 ml 5616122114) LV vol s cube 2D (test code = 69.23 ml 2752150176) MV Decel slope (test code = 2.61 m/s2 2508701478) Pred Exer Dur R1 (test code = 6181348624) Pred METS R1 (test code = 4944615538) Velocity Ratio (V1/V2) (test code = 0.38 m/s 4689) EF (test code = 9113609368) 42.39 % E/A ratio (test code = 5753085828) ADD (test code = ADD) HATTIE (test code = HATTIE) [facility] [Presence] in Respiratory specimen by DYLAN with probe lurwpgebj2747-57-01 05:08:24 Test Item Value Reference Range Interpretation Comments SARS-CoV-2 (COVID-19) RNA [Presence] Detected Not-Detected in Respiratory specimen by DYLAN with probe detection (test code = 21596-0) [facility] unecunn1661-01-94 03:52:48 Test Item Value Reference Range Interpretation Comments Urine culture (test code = SEE COMMENT 6256512) [facility] Chest Wo Clocdfmb3360-81-87 02:34:15EXAMINATION:CT CHEST WO CONTRAST CLINICAL HISTORY:Shortness of breath, Esophageal reflux TECHNIQUE:Mu ltiple axial images of the chest were obtained without intravenous contrast. The lack of intravenouscontrast reduces the sensitivity of detecting solid organ disease and evaluating vasculature. Sagittal and coronal computerized reformatted images were also obtained. All CT images were acquired using low- dose technique with automated exposure control. COMPARISON:None. FINDINGS:1.Heart size is normal.Maximal diameter of the ascending thoracic aorta is 4.3 cm. Pulmonary arterial diameter is 3.6 cm. There are calcifications at the level of the aortic annulus and aortic valve. Mild calcified atherosclerotic plaque involving the coronary vessels. No significant mediastinal lymphadenopathy. Peripheral [...] distal esophagus which may relate to esophagitis. Nonobstructing1 to 2 mm stones in the upper pole right kidney. Left upper pole renal cyst measures 2.2 cm. IMPRESSION:1.Bilateral peripheral and subpleural opacities more so involving the right lung than the left. Findings likely relate to pneumonia and are suspicious for Covid 19 infection. 2.A frontal wall thickening of the distal esophagus likely relates to esophagitis. 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 Imaging features can be seen with COVID-19 pneumonia, though are nonspecific and can occur with a variety of infectious and noninfectious processes. Consider isolation and appropriate laboratory testing. [facility]-[id number], Radiology Results 11/24/2019 9:37 PM CDT EXAMINATION:CT CHEST WO CONTRASTCLINICAL HISTORY:Shortness of breath, Esophageal refluxTECHNIQUE:Multiple axial images of the chest were obtained without intravenous contrast. The lack of intravenous contrast reduces the sen sitivity of detecting solid organ disease and evaluating vasculature. Sagittal and coronal computerized reformatted images were also obtained. All CT images were acquired using low-dose technique with automated exposure control.COMPARISON:None.FINDINGS:1.Heart size is normal. Maximal diameter of the ascending thoracic aorta is 4.3 cm. Pulmonary arterial diameter is 3.6 cm. There are calcifications atthe level of the aortic annulus and aortic valve. Mild calcified atherosclerotic plaque involving the coronary vessels. No significant mediastinal lymphadenopathy. Peripheral subpleural reticular and pa tchy nodular opacities predominantly involving the right lung and right lower lobe. There are subtlesubpleural groundglass opacities in the left lung.2.A pleural or pericardial effusion is not identified. No pneumothorax.3.The airways are patent without significant peribronchial wall thickening or mucous plugging.4.Limited images to the upper abdomen demonstrates mild circumferential wall thickeningof the distal esophagus which may relate to esophagitis. Nonobstructing 1 to 2 mm stones in the upper pole right kidney. Left upper pole renal cyst measures 2.2 cm.IMPRESSION:1.Bilateral peripheral andsubpleural opacities more so involving the right lung than the left. 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 Consider isolation and appropriate laboratory testing.[facility]-[id number] [facility] ED Preliminary Interpretation - Not an Opxdr5508-67-35 20:56:11Meera Butts MD 11/27/2019 8:21 PME ED Preliminary Interpretation - Not an OrderPerformed by: Ania Rosas NPAuthorized by: Ania Rosas NP ECG reviewed by ED Physician in the absence of a veterinary medicine scientist: yes Interpretation: Interpretation: non-specific Rate: ECG rate: 77 ECG rate assessment: normal Rhythm: Rhythm: sinus rhythm Ectopy: Ectopy: PAC QRS: QRS axis: Normal (86) QRS intervals: NormalConduction: Conduction: normal T waves: T waves: non-specific Other findings: Other findings: prolonged qTc intervalXR Chest 1 Vw Djqjioji6917-34-51 20:51:33EXAMINATION: XR CHEST 1 VW PORTABLE CLINICAL HISTORY: 74 years Male SOB COMPARISON: None. IMPRESSION: The cardiomediastinal silhouette is slightly enlarged The lungs are clear Age related changes in the osseous structures. . . Interface, Radiology Results 11/24/2019 3:54 PM CDTFormattingof this note might be different from the original.EXAMINATION: XR CHEST 1 VW PORTABLECLINICAL HISTORY: 74 years Male SOBCOMPARISON: None.IMPRESSION:The cardiomediastinal silhouette is slightly enlargedThe lungs are clear Age related changes in the osseous structures... [facility] [id number] 12:32:00 Test Item Value Reference Range Interpretation Comments Calcium Lvl (test code = Calcium Lvl) 8.5 8.5-10.5 [facility] [id number] 12:32:00 Test Item Value Reference Range Interpretation Comments eGFR (test code = eGFR) 56 [facility]2015-11-24 12:32:00 Test Item Value Reference Range Interpretation Comments CO2 (test code = CO2) 27 24-32 [facility] [id number] 12:32:00 Test Item Value Reference Range Interpretation Comments AGAP (test code = AGAP) 9.8 10.0-20.0 [facility]2015-11-24 12:32:00 Test Item Value Reference Range Interpretation Comments Sodium Lvl (test code = Sodium Lvl) 142 135-145 [facility] SVDPD4581-15-32 12:32:00 Test Item Value Reference Range Interpretation Comments Potassium Lvl (test code = Potassium 3.8 3.5-5.1 Lvl) [facility]2015-11-24 12:32:00 Test Item Value Reference Range Interpretation Comments Chloride Lvl (test code = Chloride Lvl) 109 95-109 [facility]2015-11-24 12:32:00 Test Item Value Reference Range Interpretation Comments Glucose Lvl (test code = Glucose Lvl) 102 70-99 [facility]2015-11-24 12:32:00 Test Item Value Reference Range Interpretation Comments BUN (test code = BUN) 18 11-10 [facility]2015-11-24 12:32:00 Test Item Value Reference Range Interpretation Comments Creatinine Lvl (test code = Creatinine 1.45 0.50-1.40 Lvl) [facility]2015-11-24 12:32:00 Test Item Value Reference Range Interpretation Comments Calcium Lvl (test code = Calcium Lvl) 8.5 8.5-10.5 [facility]2015-11-24 12:32:00 Test Item Value Reference Range Interpretation Comments eGFR (test code = eGFR) 56 [facility]2015-11-24 12:32:00 Test Item Value Reference Range Interpretation Comments CO2 (test code = CO2) [facility]2015-11-24 12:32:00 Test Item Value Reference Range Interpretation Comments AGAP (test code = AGAP) 9.8 10.0-20.0 [facility]2015-11-24 12:32:00 Test Item Value Reference Range Interpretation Comments Sodium Lvl (test code = Sodium Lvl) 142 135-145 [facility]2015-11-24 12:32:00 Test Item Value Reference Range Interpretation Comments Potassium Lvl (test code = Potassium 3.8 3.5-5.1 Lvl) [facility]2015-11-24 12:32:00 Test Item Value Reference Range Interpretation Comments Chloride Lvl (test code = Chloride Lvl) 109 95-109 [facility]2015-11-24 12:32:00 Test Item Value Reference Range Interpretation Comments Glucose Lvl (test code = Glucose Lvl) 102 70-99 [facility]2015-11-24 12:32:00 Test Item Value Reference Range Interpretation Comments BUN (test code = BUN) 18 - [facility]2015-11-24 12:32:00 Test Item Value Reference Range Interpretation Comments Creatinine Lvl (test code = Creatinine 1.45 0.50-1.40 Lvl) [facility]2015-11-24 09:17:00 Test Item Value Reference Range Interpretation Comments eGFR (test code = eGFR) 52 [facility]2015-11-24 09:17:00 Test Item Value Reference Range Interpretation Comments Sodium Lvl (test code = Sodium Lvl) 139 135-145 [facility]2015-11-24 09:17:00 Test Item Value Reference Range Interpretation Comments Chloride Lvl (test code = Chloride Lvl) 104 95-109 [facility]2015-11-24 09:17:00 Test Item Value Reference Range Interpretation Comments CO2 (test code = CO2) 25 - [facility]2015-11-24 09:17:00 Test Item Value Reference Range Interpretation Comments Calcium Lvl (test code = Calcium Lvl) 9.0 8.5-10.5 [facility]2015-11-24 09:17:00 Test Item Value Reference Range Interpretation Comments Potassium Lvl (test code = Potassium 5.7 3.5-5.1 Lvl) [facility]2015-11-24 09:17:00 Test Item Value Reference Range Interpretation Comments Glucose Lvl (test code = Glucose Lvl) 103 70-99 [facility]2015-11-24 09:17:00 Test Item Value Reference Range Interpretation Comments BUN (test code = BUN) 21 11-10 [facility]2015-11-24 09:17:00 Test Item Value Reference Range Interpretation Comments Creatinine Lvl (test code = Creatinine 1.55 0.50-1.40 Lvl) [facility]2015-11-24 09:17:00 Test Item Value Reference Range Interpretation Comments AGAP (test code = AGAP) 15.7 10.0-20.0 [facility] HospitalWtctrgwIMNZPKMMCN1026-95-98 09:17:00 Test Item Value Reference Range Interpretation Comments Lymphocytes (test code = Lymphocytes) 29.7 20.0-40.0 [facility] HospitalIvmhoyiDUBLHUYYVH5488-19-45 09:17:00 Test Item Value Reference Range Interpretation Comments Monocytes (test code = Monocytes) 9.4 2.0-12.0 [facility] HospitalBrucdxyGTPOPDODJI9916-81-85 09:17:00 Test Item Value Reference Range Interpretation Comments Basophils (test code = 1.0 See_Comment [Aut omated message] The Basophils) system which ge nerated this result tra nsmitted reference range : <=1.0. The reference r yi was not used to int erpret this result as normal/abnormal . [facility] HospitalPmsdoapTZISHKRXGW2252-89-97 09:17:00 Test Item Value Reference Range Interpretation Comments Eosinophils (test code = 4.6 See_Comment [A utomated message] The Eosinophils) system which ge nerated this result tra nsmitted reference range : <=4.0. The reference r yi was not used to int erpret this result as normal/abnormal . [facility] HospitalLxpserjIHHMITVOQU9607-40-95 09:17:00 Test Item Value Reference Range Interpretation Comments Lymphocytes # (test code = Lymphocytes 2.1 1.0-5.5 #) [facility] HospitalQfpycywHMKNFYAGQO1088-17-45 09:17:00 Test Item Value Reference Range Interpretation Comments Segs-Bands # (test code = Segs-Bands #) 4.0 1.5-8.1 [facility] HospitalBfmkzlfJALBBHDUTJ3446-60-71 09:17:00 Test Item Value Reference Range Interpretation Comments Basophils # (test code 0.1 See_Comment [Aut omated message] The = Basophils #) system which generated this result tra nsmitted reference range : <=0.2. The reference r yi was not used to int erpret this result as normal/abnormal . [facility] HospitalTdvcbsnRHWILHYGKV9819-30-63 09:17:00 Test Item Value Reference Range Interpretation Comments Eosinophils # (test code 0.3 See_Comment [A utomated message] The = Eosinophils #) system whic h generated this result tra nsmitted reference range : <=0.5. The reference r yi was not used to int erpret this result as normal/abnormal . [facility] HospitalFgkicllYDBBTFIDRJ0481-58-79 09:17:00 Test Item Value Reference Range Interpretation Comments Segs (test code = Segs) 55.3 45.0-75.0 [facility] HospitalUxmdgpsTDIQLFXWEZ3996-48-05 09:17:00 Test Item Value Reference Range Interpretation Comments Microcyte (test code = 3+ *NA*(03/15/15 Microcyte) 3:17 AM) [facility] HospitalVcqrygsDEUQXMAYJS0577-31-75 09:17:00 Test Item Value Reference Range Interpretation Comments Monocytes # (test code 0.7 See_Comment [Aut omated message] The = Monocytes #) system which generated this result tra nsmitted reference range : <=0.8. The reference r yi was not used to int erpret this result as normal/abnormal . [facility] HospitalSvnamfsMZQDPSVJML1263-22-78 09:17:00 Test Item Value Reference Range Interpretation Comments Target Cell (test code = Target Cell) Slight [facility] HospitalEqpkrhrAAEQTYGIVD2823-21-36 09:17:00 Test Item Value Reference Range Interpretation Comments Tear Cell (test code = Tear Cell) Slight [facility] HospitalBgnbcjoDXBTORUVTF2951-36-39 09:17:00 Test Item Value Reference Range Interpretation Comments Polychrom (test code = Moderate Polychrom) *ABN*(03/15/15 3:17 AM) [facility] HospitalDzamiulTNTVEZWMCA2270-47-43 09:17:00 Test Item Value Reference Range Interpretation Comments Large Plt (test code = Large Plt) Slight [facility] HospitalLbrnwysPGWEGMQBYR1492-00-42 09:17:00 Test Item Value Reference Range Interpretation Comments Hypochrom (test code = 1+ (03/15/15 3:17 Hypochrom) AM) [facility] HospitalRvkznaqLBVHFYUEVH5966-81-75 09:17:00 Test Item Value Reference Range Interpretation Comments Anisocyte (test code = 1+ *ABN*(03/15/15 Anisocyte) 3:17 AM) [facility] HospitalGymffcoVBULBRIFLZ6836-91-12 09:17:00 Test Item Value Reference Range Interpretation Comments INR (test code = INR) 1.23 0.85-1.17 [facility] HospitalDjnyalrNUWHFNDELZ4021-55-48 09:17:00 Test Item Value Reference Range Interpretation Comments PT (test code = PT) 15.8 s 12.0-14.7 [facility] HospitalVdvuonbZRANMQVXBE5000-73-34 09:17:00 Test Item Value Reference Range Interpretation Comments PTT (test code = PTT) 37.7 s 22.9-35.8 [facility] HospitalLsxjiwxQUDYVFOEAC7819-97-29 09:17:00 Test Item Value Reference Range Interpretation Comments MCH (test code = MCH) 18.8 pg 27.0-31.0 [facility] HospitalBeqodswTTUDXHFFNB6110-12-93 09:17:00 Test Item Value Reference Range Interpretation Comments MCV (test code = MCV) 62.9 80.0-94.0 [facility] HospitalTjoqpfaXBBLQLLQIL7242-44-37 09:17:00 Test Item Value Reference Range Interpretation Comments MPV (test code = MPV) 9.0 7.4-10.4 [facility] HospitalVbfujuxAZLBPVSLCN5025-13-47 09:17:00 Test Item Value Reference Range Interpretation Comments Platelet (test code = Platelet) 220 133-450 [facility] HospitalLofrnjjNEKILIBDQF8361-10-78 09:17:00 Test Item Value Reference Range Interpretation Comments RDW (test code = RDW) 18.2 11.5-14.5 [facility] HospitalDaztjaoDMBZWDBHPG8953-42-20 09:17:00 Test Item Value Reference Range Interpretation Comments MCHC (test code = MCHC) 29.9 32.0-36.0 [facility] HospitalFymcgknFNDMKWVXUW1910-58-68 09:17:00 Test Item Value Reference Range Interpretation Comments Hct (test code = Hct) 41.1 42.0-54.0 [facility] HospitalFqiraayZADSSEFCCQ9762-32-18 09:17:00 Test Item Value Reference Range Interpretation Comments Hgb (test code = Hgb) 12.3 14.0-18.0 [facility] HospitalFvhxlngVRNQCDTMES2009-45-54 09:17:00 Test Item Value Reference Range Interpretation Comments WBC (test code = WBC) 6.7 3.7-10.4 [facility] HospitalMpzwnmyGEIENEJUFL7489-83-14 09:17:00 Test Item Value Reference Range Interpretation Comments RBC (test code = RBC) 6.54 4.70-6.10 [facility]2015-11-24 09:17:00 Test Item Value Reference Range Interpretation Comments eGFR (test code = eGFR) 52 [facility]2015-11-24 09:17:00 Test Item Value Reference Range Interpretation Comments Sodium Lvl (test code = Sodium Lvl) 139 135-145 [facility]2015-11-24 09:17:00 Test Item Value Reference Range Interpretation Comments Chloride Lvl (test code = Chloride Lvl) 104 95-109 [facility]2015-11-24 09:17:00 Test Item Value Reference Range Interpretation Comments CO2 (test code = CO2) 25 24-32 [facility]2015-11-24 09:17:00 Test Item Value Reference Range Interpretation Comments Calcium Lvl (test code = Calcium Lvl) 9.0 8.5-10.5 [facility]2015-11-24 09:17:00 Test Item Value Reference Range Interpretation Comments Potassium Lvl (test code = Potassium 5.7 3.5-5.1 Lvl) [facility]2015-11-24 09:17:00 Test Item Value Reference Range Interpretation Comments Glucose Lvl (test code = Glucose Lvl) 103 70-99 [facility]2015-11-24 09:17:00 Test Item Value Reference Range Interpretation Comments BUN (test code = BUN) 21 7-22 [facility]2015-11-24 09:17:00 Test Item Value Reference Range Interpretation Comments Creatinine Lvl (test code = Creatinine 1.55 0.50-1.40 Lvl) [facility]2015-11-24 09:17:00 Test Item Value Reference Range Interpretation Comments AGAP (test code = AGAP) 15.7 10.0-20.0 [id number] 09:17:00 Test Item Value Reference Range Interpretation Comments Lymphocytes (test code = Lymphocytes) 29.7 20.0-40.0 [facility]RjbdsdkHIQATYNLGM2084-87-28 09:17:00 Test Item Value Reference Range Interpretation Comments Monocytes (test code = Monocytes) 9.4 2.0-12.0 [id number] 09:17:00 Test Item Value Reference Range Interpretation Comments Basophils (test code = Basophils) 1.0 <=1.0 [facility] HospitalZrkkhcsRQRTRBDRXS2991-52-65 09:17:00 Test Item Value Reference Range Interpretation Comments Eosinophils (test code = Eosinophils) 4.6 <=4.0 [facility] HospitalKorohsbFQZAVCAMCZ1178-04-13 09:17:00 Test Item Value Reference Range Interpretation Comments Lymphocytes # (test code = Lymphocytes 2.1 1.0-5.5 #) [facility] HospitalSipysgsFEHWNZKBCD8154-92-27 09:17:00 Test Item Value Reference Range Interpretation Comments Segs-Bands # (test code = Segs-Bands #) 4.0 1.5-8.1 [facility] HospitalJwyvhjhVUPIWYYXQY5587-44-52 09:17:00 Test Item Value Reference Range Interpretation Comments Basophils # (test code = Basophils #) 0.1 <=0.2 [facility] HospitalUnqkhajOFDACCTVNJ3787-35-92 09:17:00 Test Item Value Reference Range Interpretation Comments Eosinophils # (test code = Eosinophils 0.3 <=0.5 #) [facility] HospitalIcqxftcZCFYVLCYQU4763-77-60 09:17:00 Test Item Value Reference Range Interpretation Comments Segs (test code = Segs) 55.3 45.0-75.0 [facility] HospitalXsbzqokAFCHUTQTEM1726-28-71 09:17:00 Test Item Value Reference Range Interpretation Comments Microcyte (test code = 3+ *NA*(03/15/15 Microcyte) 3:17 AM) [facility] Hospit[id number] 09:17:00 Test Item Value Reference Range Interpretation Comments Monocytes # (test code = Monocytes #) 0.7 <=0.8 [facility] HospitalIjdhhtoQDERKTOORI0004-24-87 09:17:00 Test Item Value Reference Range Interpretation Comments Target Cell (test code = Target Cell) Slight [facility] Hospit[id number] 09:17:00 Test Item Value Reference Range Interpretation Comments Tear Cell (test code = Tear Cell) Slight [facility] HospitalXyesgfuETMFEOOZBX1780-98-77 09:17:00 Test Item Value Reference Range Interpretation Comments Polychrom (test code = Moderate Polychrom) *ABN*(03/15/15 3:17 AM) [facility] HospitalAfbzcejARNRNCISMF7421-86-50 09:17:00 Test Item Value Reference Range Interpretation Comments Large Plt (test code = Large Plt) Slight [facility] HospitalQygststKFUCCHUXBO6920-43-24 09:17:00 Test Item Value Reference Range Interpretation Comments Hypochrom (test code = 1+ (03/15/15 3:17 Hypochrom) AM) [facility] HospitalMvcgmkwJMSURYHVZD0461-11-45 09:17:00 Test Item Value Reference Range Interpretation Comments Anisocyte (test code = 1+ *ABN*(03/15/15 Anisocyte) 3:17 AM) [facility] HospitalGxgepfzYWYQBSKPFB5823-90-06 09:17:00 Test Item Value Reference Range Interpretation Comments INR (test code = INR) 1.23 0.85-1.17 [facility] HospitalBelonnoQUNOJJKNHG0993-42-37 09:17:00 Test Item Value Reference Range Interpretation Comments PT (test code = PT) 15.8 s 12.0-14.7 [facility] HospitalDakdfeyVJOHRHHYUU0927-16-73 09:17:00 Test Item Value Reference Range Interpretation Comments PTT (test code = PTT) 37.7 s 22.9-35.8 [facility] HospitalWplwjyiFVSSJAVDHO8026-88-73 09:17:00 Test Item Value Reference Range Interpretation Comments MCH (test code = MCH) 18.8 pg 27.0-31.0 [facility] HospitalAfchcmuUVDVVCMPXF3857-55-90 09:17:00 Test Item Value Reference Range Interpretation Comments MCV (test code = MCV) 62.9 80.0-94.0 [facility] HospitalDpdonfsSTQXWAPFCI2920-07-02 09:17:00 Test Item Value Reference Range Interpretation Comments MPV (test code = MPV) 9.0 7.4-10.4 [facility] HospitalNfbqaqeLTZFIOTXPY0258-88-29 09:17:00 Test Item Value Reference Range Interpretation Comments Platelet (test code = Platelet) 220 133-450 [facility] HospitalEwnridoKARVLYERZQ7264-36-72 09:17:00 Test Item Value Reference Range Interpretation Comments RDW (test code = RDW) 18.2 11.5-14.5 [facility] H[id number] 09:17:00 Test Item Value Reference Range Interpretation Comments MCHC (test code = MCHC) 29.9 32.0-36.0 [facility] HospitalVoszhebJSMIJCVTGZ5973-21-21 09:17:00 Test Item Value Reference Range Interpretation Comments Hct (test code = Hct) 41.1 42.0-54.0 [facility] HospitalAsfdlbsHXLGSRGPRD8887-50-50 09:17:00 Test Item Value Reference Range Interpretation Comments Hgb (test code = Hgb) 12.3 14.0-18.0 [facility] HospitalFfonmaaBXKYGDZLUR7195-90-04 09:17:00 Test Item Value Reference Range Interpretation Comments WBC (test code = WBC) 6.7 3.7-10.4 [facility] HospitalTzabmriVMLCIYOXCA5742-06-25 09:17:00 Test Item Value Reference Range Interpretation Comments RBC (test code = RBC) 6.54 4.70-6.10 [facility]"
[2023-03-25 13:52] LABS: Hematocrit 41.8 % (39.6-49.0); Lymphocytes % 17.4 % (15.3-44.8); MCV 62.5 fL (80-100); MPV 8.5 fL (7.6-11.3); Platelets 173 thou/uL (152-406); RBC Red Blood Cell Count 6.68 M/uL (4.33-5.43)
[2023-03-25 13:53] LABS: Protime INR 1.12
--- NOTE | 2023-03-25 14:07 | RAD REPORT ---
EXAM DESCRIPTION: RAD - Chest Single View - 03/25/2023 1:53 pm CLINICAL HISTORY: DYSPNEA Chest pain. COMPARISON: Chest Single View dated 09/23/2021; Chest Single View dated 06/10/2021; Chest Single View d ated 04/01/2021; Chest Single View dated 03/29/2021 FINDINGS: Portable technique limits examination quality. Moderate bilateral pulmonary opacities are present favored represent pulmonary edema. Tortuous thorac ic aorta is seen mildly enlarged cardiac silhouette. Multi lead pacer device is in place. IMPRESSION: Moderate CHF pattern is suspected.
[2023-03-25 14:08] LABS: Potassium 3.7 mEq/L (3.5-5.1); Troponin High Sensitivity 29.8 pg/mL (<58.9)
[2023-03-25 14:22] LABS: SARS-CoV-2 Antigen Rapid Res Negative (Negative)
[2023-03-25] MEDS ORDERED: FUROSEMIDE 40 MG/4 ML VIAL ONE ×2 (14:31→19:29)
--- NOTE | 2023-03-25 14:52 | RAD REPORT ---
EXAM DESCRIPTION: CT - Chest For Pe Angio - 03/25/2023 2:41 pm CLINICAL HISTORY: Chest pain. DYSPNEA COMPARISON: Chest For Pe Angio dated 02/26/2020; Chest Single View dated 03/25/2023 TECHNIQUE: CT angiogram of the pulmonary arteries was performed with MIP. All CT scans are performed using dose optimization technique as appropriate and may include automated exposure control or mA/KV adjustment according to patient size. FINDINGS: No evidence of pulmonary thromboembolism. No acute aortic finding demonstrated. Noncalcified pulmonary nodule has developed in the right lung base laterally measuring 8 mm (54/133). Mild interstitial edema pattern suspected with atelectasis in the right lung base. No significant pericardial or pleural fluid. No concerning bony finding. IMPRESSION: No evidence of pulmonary thromboembolism. Development of a noncalcified right lower lobe pulmonary nodule as detailed. This is new since [address] study. Followup nonemergent low-dose CT chest is recommended in 6 months for monitoring .
--- NOTE | 2023-03-25 15:18 | EDPHYS ---
Physician Documentation [facility] Name: Tal Cornejo Age: 77 yrs Sex: Male : 1945 Arrival Date: 03/25/2023 Time: 11:48 Bed 17 Private MD: ED Physician Timothy Brewer HPI: 03/25 12:16 This 77 yrs old Black Male presents to ER via Ambulatory with complaints of Leg rn Swelling, Shortness Of Breath. 12:16 The patient has shortness of breath at rest, with light activity. Onset: The rn symptoms/episode began/occurred 1 week(s) ago. Duration: The symptoms are intermittent. The patient's shortness of breath is aggravated by exertion, light activity, supine position, talking, walking, is alleviated by rest, sitting up. Severity of symptoms: At their worst the symptoms were moderate in the emergency department the symptoms are unchanged. The patient has experienced similar episodes in the past. The patient has not recently seen a physician. Patient states does not take his Lasix as prescribed. Takes it about once a day.. Historical: - Allergies: 12:05 No Known Allergies; iw - PMHx: 12:05 diabetes mellitus; Hypertensive disorder; Congestive heart failure; iw - Immunization history:: Adult Immunizations up to date. - Family history:: not pertinent. - Social history:: Smoking status: Patient denies any tobacco usage or history of. - Hospitalizations: : No recent hospitalization is reported. ROS: 12:16 Constitutional: Negative for fever, chills, and weight loss, Cardiovascular: Positive rn for leg swelling Respiratory: Positive for shortness of breath Abdomen/GI: Negative for abdominal pain, nausea, vomiting, diarrhea, and constipation, MS/Extremity: Negative for injury and deformity, Skin: Negative for injury, rash, and discoloration, Neuro: Negative for headache, weakness, numbness, tingling, and seizure, Exam: 12:16 Constitutional: This is a well developed, well nourished patient who is awake, alert, rn and in no acute distress. Head/Face: Normocephalic, atraumatic. ENT: No stridor Cardiovascular: Regular rate and rhythm. No pulse deficits. Respiratory: Mild tachypnea. No retractions Abdomen/GI: Soft, non-tender MS/ Extremity: Pulses equal, no cyanosis. 2+ pitting edema bilateral, equal circumference Neuro: Awake and alert, GCS 15 14:24 ECG was reviewed by the Attending Physician. rn Vital Signs: 12:04 BP 198 / 103; Pulse 81; Resp 19; Temp 99.2; Pulse Ox 97% on R/A; iw 14:12 BP 169 / 96; Pulse 83; Resp 16; Pulse Ox 99% on R/A; mb9 17:00 BP 155 / 86; Pulse 80; Resp 16; Pulse Ox 100% on R/A; mb9 12 07:30 BP 150 / 90; Pulse 80; Resp 17; Pulse Ox 99% on R/A; rs5 MDM: 03/25 11:55 Patient medically screened. rn 15:15 Differential diagnosis: CHF exacerbation, Myocardial Infarction pneumonia, pulmonary rn edema, Pulmonary Embolism. Data reviewed: vital signs, nurses notes, lab test result(s), EKG, radiologic studies, CT scan, plain films, and as a result, I will admit patient. Consideration of Admission/Observation Patient was admitted/placed on observation. Escalation of care including admission/observation considered. Management of patient was discussed with the following: Hospitalist: Will see and admit patient. Independent interpretation of the following test(s) in the Emergency Department EKG: See my EKG interpretation above X-Ray: My interpretation is Chest x-ray images show pulmonary edema and cardiomegaly per my interpretation. Care significantly affected by the following chronic conditions: Diabetes, Hypertension, Congestive Heart Failure. Counseling: I had a detailed discussion with the patient and/or guardian regarding the historical points, exam findings, and any diagnostic results supporting the discharge/admit diagnosis, lab results, radiology results, the need for further work-up and treatment in the hospital. Response to treatment: There is no appreciated change of the patient's symptoms at this time, and as a result, I will admit patient. 03/25 11:56 Order name: Basic Metabolic Panel; Complete Time: 14:13 rn 03/25 11:56 Order name: CBC with Diff; Complete Time: 10:48 rn 03/25 11:56 Order name: NT PRO-BNP; Complete Time: 14:13 rn 03/25 11:56 Order name: PT-INR; Complete Time: 14:13 rn 03/25 11:56 Order name: Troponin HS; Complete Time: 14: rn 03/25 12:59 Order name: Flu; Complete Time: 14:26 rn 03/25 12:59 Order name: SARS RAPID; Complete Time: 14:26 rn 03/25 16:16 Order name: Basic Metabolic Panel EDMS 03/25 16:16 Order name: Basic Metabolic Panel; Complete Time: 10:48 EDMS 03/25 16:16 Order name: Basic Metabolic Panel EDMS 03/25 16:16 Order name: Basic Metabolic Panel EDMS 03/25 16:17 Order name: CBC with Automated Diff EDMS 03/25 16:17 Order name: CBC with Automated Diff; Complete Time: 10:48 EDMS 03/25 16:17 Order name: CBC with Automated Diff EDMS 03/25 16:17 Order name: CBC with Automated Diff EDMS 03/25 16:17 Order name: NT PRO-BNP; Complete Time: 10:48 EDMS 03/25 16:18 Order name: Hemoglobin A1c EDMS 03/25 16:18 Order name: Hemoglobin A1c; Complete Time: 10:48 EDMS 03/25 16:18 Order name: Lipid Profile EDMS 03/25 16:18 Order name: Lipid Profile; Complete Time: 10:48 EDMS 03/25 16:21 Order name: T4 Free; Complete Time: 10:48 EDMS 03/25 16:21 Order name: Thyroid Stimulating Hormone; Complete Time: 10:48 EDMS 03/25 16:21 Order name: Urinalysis w/ reflexes; Complete Time: 10:48 EDMS 03/25 16:23 Order name: CBC Smear Scan; Complete Time: 10:48 EDMS 03/25 17:23 Order name: Glucose, Ancillary Testing; Complete Time: 10:48 EDMS 03/26 04:34 Order name: Manual Differential; Complete Time: 10:48 EDMS 03/26 08:32 Order name: Glucose, Ancillary Testing; Complete Time: 10:48 EDMS 03/26 11:32 Order name: Glucose, Ancillary Testing EDMS 03/26 11:32 Order name: Glucose, Ancillary Testing EDMS 03/25 11:56 Order name: XRAY Chest (1 view); Complete Time: 14:13 rn 03/25 11:56 Order name: CT Chest For PE Angio; Complete Time: 15:14 rn 03/25 16:18 Order name: Echo with Doppler EDMS 03/25 11:56 Order name: EKG; Complete Time: 11:56 rn 03/25 16:15 Order name: CONS Physician Consult EDMS 03/25 11:56 Order name: Cardiac monitoring; Complete Time: 14:15 rn 03/25 11:56 Order name: EKG - Nurse/Tech; Complete Time: 13:42 rn 03/25 11:56 Order name: IV Saline Lock; Complete Time: 13:42 rn 03/25 11:56 Order name: Labs collected and sent; Complete Time: 13:42 rn 03/25 11:56 Order name: O2 Per Protocol; Complete Time: 14:15 rn 03/25 11:56 Order name: O2 Sat Monitoring; Complete Time: 14:15 rn EC:24 Rate is 79 beats/min. Rhythm is regular. QRS [place] is Normal. [place] interval is normal. QRS rn interval is prolonged at 122 msec. QT interval is normal. No Q waves. T waves are Normal. No ST changes noted. Clinical impression: NSR w/ Non-specific ST/T Changes. Interpreted by me. Reviewed by me. Administered Medications: 14:25 Drug: Furosemide IVP 40 mg IVP once; give over 2 minutes Route: IVP; Site: left mb9 antecubital; 14:57 Follow up: Response: No adverse reaction mb9 Disposition Summary: 03/25/23 15:17 Hospitalization Ordered Notes: Hospitalization Status: Observation rn Provider: Hi Saeed rn Condition: Stable rn Problem: an acute exacerbation rn Symptoms: are unchanged rn Bed/Room Type: Standard rn Location: Telemetry/MedSurg (observation)(03/26/23 16:33) Room Assignment: [facility](03/26/23 16:33) Diagnosis - Unspecified combined systolic (congestive) and diastolic (congestive) heart failure rn - Acute pulmonary edema rn Forms: - Medication Reconciliation Form rn - SBAR form rn - Leadership Thank You Letter rn Signatures: Dispatcher [employer] [facility] May Luther Shelly, FNP-C FNP-Swetha Urias, RN Timothy Concepcion MD MD rn Breneman, Mary Beth, RN RN mb9 Corrections: (The following items were deleted from the chart) 16:14 15:17 Telemetry/MedSurg (observation) rn 16:14 15:17 rn bd 03/26 16:33 12 16:14 [facility] ER HOLD bd bd 03/26 16:33 12 16:14 ERHOLD- bd bd
--- NOTE | 2023-03-25 15:18 | ER ---
Nurse's Notes [facility] Name: Tal Cornejo Age: 77 yrs Sex: Male : 1945 Arrival Date: 03/25/2023 Time: 11:48 Bed 17 Private MD: Diagnosis: Unspecified combined systolic (congestive) and diastolic (congestive) heart failure;Acute pulmonary edema Presentation: 03/25 12:04 Chief complaint: Patient states: increasing SOB on exertion and chest pain , started a iw few days ago. Coronavirus screen: Client presents with at least one sign or symptom that may indicate coronavirus-19. Ebola Screen: Patient negative for fever greater than or equal to 101.5 degrees Fahrenheit, and additional compatible Ebola Virus Disease symptoms Patient denies exposure to infectious person. Patient denies travel to an Ebola-affected area in the 21 days before illness onset. No symptoms or risks identified at this time. Initial Sepsis Screen: Does the patient meet any 2 criteria? No. Patient's initial sepsis screen is negative. Does the patient have a suspected source of infection? No. Patient's initial sepsis screen is negative. Risk Assessment: Do you want to hurt yourself or someone else? Patient reports no desire to harm self or others. 12:04 Method Of Arrival: Ambulatory iw 12:04 Acuity: MARTITA 3 iw 12:05 Onset of symptoms was March 22, 2023. iw Historical: - Allergies: 12:05 No Known Allergies; iw - PMHx: 12:05 diabetes mellitus; Hypertensive disorder; Congestive heart failure; iw - Immunization history:: Adult Immunizations up to date. - Family history:: not pertinent. - Social history:: Smoking status: Patient denies any tobacco usage or history of. - Hospitalizations: : No recent hospitalization is reported. Screenin:13 [facility] ED Fall Risk Assessment (Adult) History of falling in the last 3 months, mb9 including since admission No falls in past 3 months (0 pts) Confusion or Disorientation No (0 pts) Intoxicated or Sedated No (0 pts) Impaired Gait No (0 pts) Mobility Assist Device Used No (0 pt) Altered Elimination No (0 pt) Score/Fall Risk Level 0 - 2 = Low Risk Oriented to surroundings, Maintained a safe environment, Educated pt \T\ family on fall prevention, incl call for assistance when getting out of bed. Abuse screen: Denies threats or abuse. Nutritional screening: No deficits noted. Tuberculosis screening: No symptoms or risk factors identified. Assessment: 14:12 General: Appears in no apparent distress. Behavior is calm, cooperative, appropriate mb9 for age. Pain: Complains of pain in chest Pain does not radiate. Quality of pain is described as throbbing, Pain began 2-3 days ago. Is intermittent. Neuro: Dotson Agitation-Sedation Scale (RASS): 0 - Alert and Calm Level of Consciousness is awake, alert, obeys commands, Oriented to person, place, time, situation, Appropriate for age. Cardiovascular: Reports chest pain, shortness of breath. Respiratory: Airway is patent Respiratory effort is even, unlabored, Respiratory pattern is regular, symmetrical, Breath sounds are clear bilaterally. Respiratory: Reports cough that is. GI: Abdomen is round non-distended, Bowel sounds present X 4 quads. Abd is soft and non tender X 4 quads. : No signs and/or symptoms were reported regarding the genitourinary system. Derm: Skin is pink, warm \T\ dry. Musculoskeletal: Range of motion: intact in all extremities. 15:45 Reassessment: No changes from previously documented assessment. Patient and/or family mb9 updated on plan of care and expected duration. Pain level reassessed. Patient is alert, oriented x 3, equal unlabored respirations, skin warm/dry/pink. 17:30 Reassessment: No changes from previously documented assessment. Patient and/or family mb9 updated on plan of care and expected duration. Pain level reassessed. Patient is alert, oriented x 3, equal unlabored respirations, skin warm/dry/pink. 18:00 Reassessment: see [facility] for further charting. mb9 Vital Signs: 12:04 BP 198 / 103; Pulse 81; Resp 19; Temp 99.2; Pulse Ox 97% on R/A; iw 14:12 BP 169 / 96; Pulse 83; Resp 16; Pulse Ox 99% on R/A; mb9 17:00 BP 155 / 86; Pulse 80; Resp 16; Pulse Ox 100% on R/A; mb9 03/26 07:30 BP 150 / 90; Pulse 80; Resp 17; Pulse Ox 99% on R/A; rs5 ED Course: 03/25 11:52 Patient arrived in ED. mg5 11:55 Brweer, Timothy, MD is Attending Physician. rn 12:05 Triage completed. iw 13:41 Inserted saline lock: 20 gauge in left antecubital area, using aseptic technique. Blood mb9 collected. 13:42 SARS RAPID Sent. mb9 13:42 Flu Sent. mb9 13:42 Basic Metabolic Panel Sent. mb9 13:42 CBC with Diff Sent. mb9 13:42 NT PRO-BNP Sent. mb9 13:42 PT-INR Sent. mb9 13:42 Troponin HS Sent. mb9 13:55 XRAY Chest (1 view) In Process Unspecified. EDMS 14:12 Jeannie Wilkerson, RN is Primary Nurse. mb9 14:14 No provider procedures requiring assistance completed. mb9 14:14 Placed in gown. Bed in low position. Call light in reach. Side rails up X 1. Client mb9 placed on continuous cardiac and pulse oximetry monitoring. NIBP monitoring applied. polystyrene bead molder on. 14:14 Arm band placed on. mb9 14:43 CT Chest For PE Angio In Process Unspecified. EDMS 15:17 Hi Saeed MD is Hospitalizing Provider. rn 19:06 Report given to MYRON Ta. mb9 03/26 07:30 Patient admitted, IV remains in place. rs5 Administered Medications: 03/25 14:25 Drug: Furosemide IVP 40 mg IVP once; give over 2 minutes Route: IVP; Site: left mb9 antecubital; 14:57 Follow up: Response: No adverse reaction mb9 Medication: 14:57 VIS not applicable for this client. mb9 Outcome: 15:17 Decision to Hospitalize by Provider. rn 03/26 07:30 Admitted to ER Hold. Please see [facility] for further documentation. rs5 Condition: stable Instructed on the need for admit, Demonstrated understanding of instructions, 17:32 Patient left the ED. cm10 Signatures: Dispatcher [employer] EDMS Swetha Rosa RN RN iw Nieto, Roman, MD MD rn Breneman, Mary Beth, RN RN mb9 Cody Davidson RN RN rs5 Gabbi Holman RN RN cm10 Belkis Isaac mg5 Corrections: (The following items were deleted from the chart) 03/25 12: 12:04 Chief complaint: Patient states: increasing SOB on exertion and chest pain iw iw 12: 12:04 Pulse 81bpm; Resp 19bpm; Pulse Ox 97% RA; Temp 99.2F; iw iw 03/26 09:17 07:30 Patient admitted, IV remains in place. rs5 rs5 09:18 07:30 Cardiovascular: Rhythm is regular rs5 rs5 :39 07:30 Cardiovascular: Rhythm is regular rs5 rs5 : 07:30 Respiratory: Respiratory effort is even, unlabored, Respiratory pattern is rs5 regular, symmetrical, rs5 :39 07:30 Pain: Denies pain. rs5 rs5
[2023-03-25] MEDS ORDERED: HYDROCODONE/APAP 5/325 MG TAB PO PRN (16:12)
[2023-03-25] MEDS ORDERED: ACETAMINOPHEN 500 MG TAB PO PRN (16:12)
[2023-03-25] MEDS ORDERED: ALBUTEROL 2.5 MG/3 ML NEB SOL NEB PRN (16:12)
[2023-03-25] MEDS ORDERED: IPRATROPIUM BROM 0.5MG/2.5ML NEB PRN (16:12)
[2023-03-25 16:22] LABS: Blood Morphology Comment NOTED (NOT SEEN); Platelet Estimate ADEQ; White Blood Cell Scan OK (OK)
[2023-03-25 16:23] LABS: Anisocytosis 2+; Poikilocytosis 2+
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
[2023-03-25] MEDS: INSULIN REGULAR (HUMAN) 100 UNIT/ML SQ SCH ×2 (16:30→20:29)
[2023-03-25] MEDS: FUROSEMIDE 40 MG/4 ML VIAL IV SCH (17:00)
[2023-03-25] MEDS: HEPARIN 5000 UNIT/ML 1 ML VIAL SQ SCH (17:00)
[2023-03-25] MEDS ORDERED: HEPARIN 5000 UNIT/ML 1 ML VIAL ONE (19:29)
[2023-03-25 19:42] VITALS: BMI 31.4
[2023-03-26] MEDS: HEPARIN 5000 UNIT/ML 1 ML VIAL SQ SCH ×3 (01:00→16:13)
[2023-03-26 03:49] LABS: Hematocrit 39.8 % (39.6-49.0); MCV 62.4 fL (80-100); MPV 8.7 fL (7.6-11.3); Platelets 165 thou/uL (152-406); RBC Red Blood Cell Count 6.38 M/uL (4.33-5.43)
[2023-03-26 03:51] LABS: Potassium 3.3 mEq/L (3.5-5.1)
[2023-03-26 03:58] LABS: Thyroid Stimulating Hormone 1.19 uIU/mL (0.358-3.740)
[2023-03-26] MEDS ORDERED: HEPARIN 5000 UNIT/ML 1 ML VIAL ONE ×3 (04:10→16:17)
[2023-03-26 04:34] LABS: Blood Morphology Comment NOTED (NOT SEEN); Hypochromasia 2+; Platelet Estimate ADEQ
[2023-03-26] MEDS ORDERED: KCL 20 MEQ/100 mL IVPB 20 MEQ/100 ML BAG IV ONE (07:00)
[2023-03-26] MEDS: INSULIN REGULAR (HUMAN) 100 UNIT/ML SQ SCH ×4 (07:30→21:00)
[2023-03-26] MEDS ORDERED: FUROSEMIDE 40 MG/4 ML VIAL ONE ×2 (08:09→16:17)
[2023-03-26] MEDS ORDERED: KCL 20 MEQ/100 mL IVPB 100 ML IV ONE (08:09)
[2023-03-26 08:48] LABS: Specific Gravity 1.028 (1.005-1.030); Urine Bilirubin NEGATIVE (Negative); Urine Blood Negative (Negative); Urine Clarity Clear (Clear); Urine Color Light-Yellow (Yellow); Urine Glucose NEGATIVE (Negative); Urine Protein NEGATIVE (Negative); Urine Urobilinogen Normal (Normal)
[2023-03-26] MEDS: FUROSEMIDE 40 MG/4 ML VIAL IV SCH ×2 (09:00→16:13)
[2023-03-26] MEDS ORDERED: ALBUTEROL 2.5 MG/3 ML NEB SOL NEB PRN (11:00)
[2023-03-26] MEDS ORDERED: IPRATROPIUM BROM 0.5MG/2.5ML NEB PRN (11:00)
--- NOTE | 2023-03-26 13:29 | EKG ---
Test Date: 2023-03-25 Test Time: 12:11:08 Carpet Measurer: JAYLIN MEASUREMENT RESULTS: Intervals: Rate: 79 WA: 144 QRSD: 122 QT: 412 QTc: 472 [place]: P: 11 WA: 144 QRS: -17 T: 23 INTERPRETIVE STATEMENTS: Sinus rhythm Left ventricular hypertrophy with QRS widening Abnormal ECG Compared to ECG 09/23/2021 14:45:12 Atrial-paced complex(es) or rhythm no longer present Ventricular-paced complex(es) or rhythm no longer present Incomplete right bundle-branch block no longer present Electronically Signed On 03-26-23 13:26:58 BANK VAULT CLERK by Kun Garcia
--- NOTE | 2023-03-26 13:31 | P.PN ---
Subjective Date of Service: 03/26/23 Chief Complaint: CHF,Acute Pul.Edema Pt is resting comfortably in bed. he diuresed well overnight. [facility] for [facility]. district claims manager is assessing his needs at home. No other complaints. Review of Systems 10-point ROS is otherwise unremarkable General: Unremarkable Eyes: Unremarkable ENT: Unremarkable Respiratory: Unremarkable Cardiovascular: Edema (trace leg edema) Gastrointestinal: Unremarkable Genitourinary: Unremarkable Musculoskeletal: Unremarkable Integumentary: Unremarkable Neurological: Unremarkable Physical Examination - Vital Signs Temperature: 98.0 F Blood Pressure: 160/80 Pulse: 84 Respirations: 17 Pulse Ox (%): 99 - Physical Exam General: Alert, In no apparent distress, Oriented x3, Cooperative HEENT: Atraumatic, Normocephalic Neck: Supple, 2+ carotid pulse no bruit, No Thyromegaly Respiratory: Clear to auscultation bilaterally, Normal air movement Cardiovascular: No edema, Normal pulses, Normal S1 S2 Capillary refill: <2 Seconds Gastrointestinal: Normal bowel sounds, Soft and benign, Non-distended Musculoskeletal: No clubbing, No erythema Integumentary: No rashes, No breakdown Neurological: Normal gait, Normal strength at 5/5 x4 extr, Normal tone, Sensation intact Lymphatics: No axilla or inguinal lymphadenopathy - Studies Laboratory Data (last 24 hrs) 03/25/23 03/25/23 03/25/23 13:39 13:39 13:39 WBC 6.00 Hgb 13.0 L Hct 41.8 Plt Count 173 PT 12.3 INR 1.12 Sodium 144 Potassium 3.7 BUN 6 L Creatinine 1.35 H Glucose 115 H Microbiology Data (last 24 hrs): 03/25/23 13:35 Nasopharnyx Influenza Type A Antigen Screen - Final 03/25/23 13:35 Nasopharnyx Influenza Type B Antigen Screen - Final Assessment And Plan - Plan Acute CHF exacerbation: BNP is 1788. Will follow up Echo. Pt was not complaint with lasix at home. Will continue lasix, daily weight, strict I/O and low salt diet. Pulm Edema; Due to CHF exacerbation. Will continue lasix. DM Ii: Will continue accuchek, SSI and ADA diet Hx of Aortic valve replacement. HLD: LDl is 126. Will continue statin Hypokalemia: K is 3.3. Will replete and monitor. CLARITZA: Cr is 1.54. Will avoid nephrotoxins and monitor renal function. Non-compliance: Pt was advised to be compliant with home meds and outpt appointments. DVT ppx; SCD Dispo: pending hospital course Discharge Plan: Home Plan to discharge in: 24 Hours - Code Status/Comfort Care Code Status Assessed: Yes Code Status: Full Code Physician Review: Patient Assessed, Agree with Above Assessment and Plan
--- NOTE | 2023-03-26 13:53 | ECHO ---
HEIGHT: 5 ft 11 in WEIGHT: 225 lb 0 oz DATE OF STUDY: 03/26/[address]: Silvana Hunter NP 2-DIMENSIONAL: YES M.MODE: YES DOPPLER: YES COLOR FLOW: YES TDS: PORTABLE: YES DEFINITY: BUBBLE STUDY: DIAGNOSIS: CONGESTIVE HEART FAILURE CARDIAC HISTORY: CATHERIZATION: YES SURGERY: NO PROSTHETIC VALVE: YES PACEMAKER: YES MEASUREMENTS (cm) DIASTOLIC (NORMALS) SYSTOLIC (NORMALS) IVSd 1.2 (0.6-1.2) LA Diam 3.4 (1.9-4.0) LVEF 52% LVIDd 3.0 (3.5-5.7) LVIDs 2.2 (2.0-3.5) %FS 26% LVPWd 1.3 (0.6-1.2) Ao Diam 2.6 (2.0-3.7) 2 DIMENSIONAL ASSESSMENT: RIGHT ATRIUM: NORMAL LEFT ATRIUM: NORMAL RIGHT VENTRICLE: NORMAL LEFT VENTRICLE: LEFT VENTRICULAR HYPERTROPHY (MILD) TRICUSPID VALVE: NORMAL MITRAL VALVE: NORMAL PULMONIC VALVE: NORMAL AORTIC VALVE: CALCIFIED WITH MILD AORTIC STENOSIS PERICARDIAL EFFUSION: NOEN AORTIC ROOT: NORMAL LEFT VENTRICULAR WALL MOTION: NORMAL DOPPLER/COLOR FLOW: SEE BELOW COMMENTS: 1. NORMAL LEFT VENTRICULAR EJECTION FRACTION 55-60% WITH NORMAL WALL MOTION 2. MILD CONCENTRIC LEFT VENTRICULAR HYPERTROPHY 3. DIASTOLIC DYSFUNCTION (GRADE I) 4. MILD AORTIC STENOSIS TECHNOLOGIST: JANEEN TOWNSEND
[2023-03-26] MEDS ORDERED: INFLUENZA VACCINE (for 6+ mo) 0.5 ML DOSE IMVAC ONE (20:00)
[2023-03-26] MEDS ORDERED: PNEUMOCOCCAL VACCINE 0.5 ML IMVAC ONE (20:00)
[2023-03-26] MEDS ORDERED: ATORVASTATIN 40 MG TAB PO SCH (21:00)
[2023-03-27] MEDS: HEPARIN 5000 UNIT/ML 1 ML VIAL SQ SCH ×2 (01:06→09:02)
[2023-03-27 07:03] LABS: Absolute Lymphocytes (CBC) 1.8 K/uL (0.7-4.9); Hematocrit 42.6 % (39.6-49.0); Lymphocytes % 33.3 % (15.3-44.8); MCV 62.8 fL (80-100); MPV 8.6 fL (7.6-11.3); Platelets 165 thou/uL (152-406); RBC Red Blood Cell Count 6.79 M/uL (4.33-5.43)
[2023-03-27 07:18] LABS: Potassium 3.3 mEq/L (3.5-5.1)
[2023-03-27 07:20] LABS: Magnesium 2.1 mg/dL (1.6-2.4); Phosphorus 3.2 mg/dL (2.5-4.9)
[2023-03-27] MEDS: INSULIN REGULAR (HUMAN) 100 UNIT/ML SQ SCH ×2 (07:30→11:30)
[2023-03-27 08:21] LABS: Anisocytosis 2+; Blood Morphology Comment NOTED (NOT SEEN); Hypochromasia 2+; Platelet Estimate ADEQ; White Blood Cell Scan OK (OK)
[2023-03-27 08:57] VITALS: BP 123/73; TEMP 98.7
[2023-03-27] MEDS: FUROSEMIDE 40 MG/4 ML VIAL IV SCH (09:02)
[2023-03-27 09:03] VITALS: O2SAT 97
[2023-03-27] MEDS: POTASSIUM CL SA 10 MEQ TAB PO SCH ×2 (09:28→12:59)
--- NOTE | 2023-03-27 12:27 | P.PN ---
Subjective Date of Service: 03/27/23 Chief Complaint: CHF,Acute Pul.Edema Pt is resting comfortably in bed. He diuresed well overnight. No other complaints. Review of Systems 10-point ROS is otherwise unremarkable General: Unremarkable Eyes: Unremarkable ENT: Unremarkable Respiratory: Unremarkable Cardiovascular: Unremarkable Gastrointestinal: Unremarkable Genitourinary: Unremarkable Musculoskeletal: Unremarkable Integumentary: Unremarkable Neurological: Unremarkable Lymphatics: Unremarkable Physical Examination - Vital Signs Temperature: 98.7 F Blood Pressure: 123/73 Pulse: 81 Respirations: 18 Pulse Ox (%): 97 - Physical Exam General: In no apparent distress, Oriented x3, Cooperative HEENT: Atraumatic, Normocephalic, PERRLA Neck: Supple, 2+ carotid pulse no bruit Respiratory: Clear to auscultation bilaterally, Normal air movement Cardiovascular: No edema, Normal pulses, Normal S1 S2 Capillary refill: <2 Seconds Gastrointestinal: Normal bowel sounds, Soft and benign, Non-distended Musculoskeletal: No clubbing, No swelling Integumentary: No rashes, No breakdown Neurological: Normal gait, Normal speech, Cranial nerves 3-12 intact Lymphatics: No axilla or inguinal lymphadenopathy Assessment And Plan - Plan Acute CHF exacerbation: BNP is 1788. Echo shows EF 55 - 60%, mild aortic stenosis and grade I diastolic dysfunction. Pt was not complaint with lasix at home. Will continue lasix, daily weight, strict I/O and low salt diet. Pulm Edema; Due to CHF exacerbation. Will continue lasix. DM Ii: Will continue accuchek, SSI and ADA diet Hx of Aortic valve replacement. HLD: LDl is 126. Will continue statin Hypokalemia: K is 3.3. Will replete and monitor. CLARITZA: Cr is 1.56. Will avoid nephrotoxins and monitor renal function. Non-compliance: Pt was advised to be compliant with home meds and outpt appointments. DVT ppx; SCD Dispo: Will dc soon Physician Review: Patient Assessed, Agree with Above Assessment and Plan
--- NOTE | 2023-03-27 12:47 | P.DS ---
Admission Date: 03/25/23 Discharge Date: 03/27/23 Disposition: ROUTINE DISCHARGE Discharge Condition: GOOD Reason for Admission: CHF,Acute Pul.Edema Consultations: Cardiology Brief History of Present Illness: Mr. Cornejo, a 75-year-old male patient with a primary medical history of chronic diastolic CHF last echo 55% on 09/25/2021, NIDDM, hypertension, history of DVTs, aortic valve replacement, PPM, presented to the emergency room with the complaints of shortness of breath and leg swelling. Patient reports shortness of breath with mild exertion. Symptoms started 1 week ago, are intermittent, relieved by sitting up, resting. Aggravated by light activities exertion, supine position, talking or walking. Patient reports similar experience in the past. Patient was at the [facility] for his medical needs but not seen a physician recently. Patient reports that # Acute does not take his Lasix as prescribed. Patient denies chest pain, palpitation, abdominal pain, nausea, vomiting, diarrhea. Patient denies fever or chills. ED course vital signs; blood pressure 198/103, pulse 81, respiration 19, temperature 99.2, pulse ox 97% on room air. EKG showing heart rate 79 bpm rhythm is regular. Initial chest x-ray showing moderate CHF, BNP is 1810. CT chest is negative for pulmonary embolism. Patient was given Lasix 40 mg IV x1 in the emergency room, Admitting the patient for acute exacerbation of CHF. Hospital Course: Pt was not compliant with lasix at home. He presented in the ER with SOB and leg edema. We started lasix 40mg iv BID, strict I/O, daily weight and low salt diet for CHF exacerbation. Echo showed EF 55 - 60% with grade I diastolic dysfunction and mils aortic stenosis. We repleted potassium and monitored renal function. Pt was advised to be complaint with home meds and outpt appointments. Vital Signs/Physical Exam: Temp Pulse Resp BP Pulse Ox 98.7 F 81 18 123/73 97 03/27/23 12:40 03/27/23 12:40 03/27/23 12:40 03/27/23 12:40 03/27/23 12:40 Laboratory Data at Discharge: WBC 5.50 thou/uL (4.3-10.9) 03/27/23 06:48 Hgb 13.1 g/dL (13.6-17.9) L 03/27/23 06:48 Hct 42.6 % (39.6-49.0) 03/27/23 06:48 Plt Count 165 thou/uL (152-406) 03/27/23 06:48 PT 12.3 SECONDS (9.5-12.5) 03/25/23 13:39 INR 1.12 03/25/23 13:39 Sodium 140 mEq/L (136-145) 03/27/23 06:48 Potassium 3.3 mEq/L (3.5-5.1) L 03/27/23 06:48 BUN 17 mg/dL (7-18) 03/27/23 06:48 Creatinine 1.56 mg/dL (0.70-1.30) H 03/27/23 06:48 Glucose 127 mg/dL (74-106) H 03/27/23 06:48 Phosphorus 3.2 mg/dL (2.5-4.9) 03/27/23 06:48 Magnesium 2.1 mg/dL (1.6-2.4) 03/27/23 06:48 Triglycerides 56 mg/dL (<150) 03/26/23 02:56 Cholesterol 198 mg/dL (<200) 03/26/23 02:56 HDL Cholesterol 61 mg/dL (40-60) H 03/26/23 02:56 Cholesterol/HDL Ratio 3.25 03/26/23 02:56 Home Medications: Atorvastatin Calcium [Lipitor] 40 mg PO BEDTIME #30 tab 04/01/21 Metoprolol Tartrate 25 mg PO BID #60 tablet 04/01/21 Rivaroxaban [Xarelto] 20 mg PO DAILY #30 tablet 09/24/21 lisinopriL [Prinivil*] 5 mg PO DAILY #30 tab 09/24/21 Furosemide [Lasix] 40 mg PO DAILY 60 Days #60 tab 03/27/23 New Medications: Furosemide [Lasix] 40 mg PO DAILY 60 Days #60 tab Physician Discharge Instructions: Continue ad fabiano activity. Take home meds as prescribed. Follow up with PCP and pharmacy resource tech at the [facility] within 1 - 2 weeks Diet: AHA Activity: Ad fabiano Followup: Kun Garcia MD [ACTIVE - CAN ADMIT] -
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
--- NOTE | 2023-03-27 17:23 | P.PN ---
Subjective Date of Service: 03/27/23 Primary Care Provider: [place] Chief Complaint: CHF,Acute Pul.Edema Subjective: Improving, Doing well Review of Systems 10-point ROS is otherwise unremarkable Respiratory: Other (improved, no SOB, no CP) Cardiovascular: Edema, Other, As per HPI Gastrointestinal: Unremarkable Physical Examination - Vital Signs Temperature: 98.7 F Blood Pressure: 123/73 Pulse: 81 Respirations: 18 Pulse Ox (%): 97 - Physical Exam General: Alert, In no apparent distress, Oriented x3 HEENT: Atraumatic, Normocephalic, PERRLA Neck: Supple, 2+ carotid pulse no bruit Respiratory: Clear to auscultation bilaterally Cardiovascular: Normal pulses, Regular rate/rhythm, Other (loose skin around ankle since diuresis) Capillary refill: <2 Seconds Gastrointestinal: Normal bowel sounds, Soft and benign Musculoskeletal: No clubbing Integumentary: No rashes Neurological: Normal speech, Normal tone Lymphatics: No axilla or inguinal lymphadenopathy External genitalia: Deferred Rectal: Deferred Assessment And Plan - Current Problems (Diagnosis) (1) Acute on chronic diastolic (congestive) heart failure Status: Acute Plan: Diurese aggresively with monitoring of renal function and electrolytes, replacement of potassium Encourage medication compliance. Will repeat ECHO - Plan Pt clinically much improved, EF 55-60%, encourage medication compliance, cardiology will sign off on this admission Physician Review: Patient Assessed, Agree with Above Assessment and Plan
== END 2023-03-27 15:15 | disposition home or self-care (01) | DRG 291 ==
LOC: ER 11:48 → ERHOLD 18:42 → 4TH 03-26 17:03
PROVIDERS: ADMIT Hospitalist; ATTEND Hospitalist
DX: I11.0 Hypertensive heart disease with heart failure (principal); I50.33 Acute on chronic diastolic (congestive) heart failure; N17.9 Acute kidney failure, unspecified; E11.40 Type 2 diabetes mellitus with diabetic neuropathy, unspecified; E11.69 Type 2 diabetes mellitus with other specified complication; E87.6 Hypokalemia; E66.9 Obesity, unspecified; E78.5 Hyperlipidemia, unspecified; M10.9 Gout, unspecified; Z11.52 Encounter for screening for COVID-19; Z95.2 Presence of prosthetic heart valve; Z79.01 Long term (current) use of anticoagulants; Z68.31 Body mass index [BMI] 31.0-31.9, adult; Z91.148 Patient's other noncompliance with medication regimen for other reason; Z86.718 Personal history of other venous thrombosis and embolism; Z79.899 Other long term (current) drug therapy; Z95.810 Presence of automatic (implantable) cardiac defibrillator; Z91.199 Patient's noncompliance with other medical treatment and regimen due to unspecified reason
CPT/HCPCS: 36415; 71045; 71275; 80048; 80061; 81003; 82947; 83036; 83735; 83880; 84100; 84439; 84443; 84484; 85025; 85610; 87804; 87811; 93005; 93306; 96374; 99285; J1644; J1940; J3480; Q9967

== ENCOUNTER 2023-11-24 04:55 | Inpatient (IN) | payer OTHER ==
[2023-11-24] MEDS ORDERED: ASPIRIN 81 MG CHEWABLE TABLET ONE (05:22)
[2023-11-24] MEDS ORDERED: HYDRALAZINE HCL 25 MG TABLET ONE (05:22)
[2023-11-24] MEDS ORDERED: DIAZEPAM 5 MG TABLET ONE (05:23)
[2023-11-24 06:08] LABS: Absolute Basophils 0.1 K/uL (0-0.5); Absolute Eosinophils 0.4 K/uL (0-0.5); Absolute Lymphocytes (CBC) 1.3 K/uL (0.7-4.9); Absolute Monocytes 0.9 K/uL (0.1-1.3); Absolute Neutrophil 5.3 K/uL (1.8-8.0); Eosinophils % 5.5 % (0-4.4); Hematocrit 37.3 % (39.6-49.0); Hemoglobin 11.5 g/dL (13.6-17.9); Lymphocytes % 16.1 % (15.3-44.8); MCH 19.1 pg (27.0-35.0); MCHC 30.7 g/dL (32.0-36.0); MCV 62.4 fL (80-100); MPV 8.6 fL (7.6-11.3); Monocytes % 11.8 % (3.3-12.3); Neutrophils % 65.6 % (41.7-73.7); Nucleated Red Blood Cells % 0.3 % (0-0); Platelets 201 thou/uL (152-406); RBC Red Blood Cell Count 5.98 M/uL (4.33-5.43); Red Cell Distribution Width 17.2 % (12.1-15.2)
[2023-11-24 06:39] LABS: ALT/SGPT 18 U/L (16-61); AST/SGOT 20 U/L (15-37); Albumin 3.7 g/dL (3.4-5.0); Albumin/Globulin Ratio 0.8 (1.1-1.8); Alkaline Phosphatase 104 U/L (45-117); Anion Gap 6.7 mEq/L (5.0-15.0); BUN Blood Urea Nitrogen 20 mg/dL (7-18); Bicarbonate 30 mEq/L (21-32); Bilirubin Direct 0.3 mg/dL (0-0.2); Bilirubin Indirect, Calculated 0.8 mg/dL (0.2-0.8); Bilirubin Total 1.1 mg/dL (0.2-1.0); Globulin 4.5 g/dL (2.3-3.5); Glomerular Filtration Rate 49 ml/min (=/>90); Glucose Level 96 mg/dL (74-106); Magnesium 2.3 mg/dL (1.6-2.4); NT PRO-BNP 4992 pg/mL (<450); Potassium 3.7 mEq/L (3.5-5.1); Protein, Total 8.2 g/dL (6.4-8.2); Sodium Level 141 mEq/L (136-145); Troponin High Sensitivity 39.1 pg/mL (<58.9)
[2023-11-24 06:53] LABS: PT Prothrombin Time 13.4 SECONDS (9.4-12.5); Protime INR 1.2
--- NOTE | 2023-11-24 07:13 | ER ---
Nurse's Notes [facility] Name: Tal Cornejo Age: 78 yrs Sex: Male : 1945 Arrival Date: 11/24/2023 Time: 04:55 Bed 8 Private MD: Diagnosis: Acute diastolic (congestive) heart failure;Other psychoactive substance abuse;Cocaine abuse, acute CHF exacerbation Presentation: 11/23 05:03 Chief complaint: Patient states: Drug use pt states he used cocaine today. Coronavirus jm12 screen: At this time, the client does not indicate any symptoms associated with coronavirus-19. Ebola Screen: No symptoms or risks identified at this time. Initial Sepsis Screen: Does the patient meet any 2 criteria? No. Patient's initial sepsis screen is negative. Does the patient have a suspected source of infection? No. Patient's initial sepsis screen is negative. Risk Assessment: Do you want to hurt yourself or someone else? Other: pt high at this time. Onset of symptoms was November 24, 2023. 05:03 Method Of Arrival: EMS: [facility] 05:03 Acuity: MARTITA 3 12 Triage Assessment: 05:13 General: Appears in no apparent distress. comfortable, obese, unkempt, Behavior is 12 calm, cooperative. Pain: Denies pain. Cardiovascular: Reports swelling to legs. Respiratory: No deficits noted. GI: No deficits noted. No signs and/or symptoms were reported involving the gastrointestinal system. : No deficits noted. No signs and/or symptoms were reported regarding the genitourinary system. Derm: No deficits noted. No signs and/or symptoms reported regarding the dermatologic system. Musculoskeletal: No deficits noted. No signs and/or symptoms reported regarding the musculoskeletal system. Historical: - Allergies: 05:05 No Known Allergies; jm12 - PMHx: 05:05 Congestive heart failure; diabetes mellitus; Hypertensive disorder; jm12 - PSHx: 08:00 pacemaker; aa5 - Immunization history:: Adult Immunizations not up to date. - Infectious Disease History:: Denies. - Social history:: Smoking status: Patient reports the use of cigarette tobacco products, Patient uses street drugs, cocaine. - Family history:: not pertinent. Screenin:00 [facility] ED Fall Risk Assessment (Adult) History of falling in the last 3 months, me1 including since admission No falls in past 3 months (0 pts) Confusion or Disorientation No (0 pts) Intoxicated or Sedated No (0 pts) Impaired Gait Yes (1 pt) Mobility Assist Device Used Yes (1 pt) Altered Elimination No (0 pt) Score/Fall Risk Level 0 - 2 = Low Risk Maintained a safe environment, Provided non-skid footwear, Hourly rounding (assess needs \T\ fall precautionary measures) done. Abuse screen: Denies threats or abuse. Nutritional screening: No deficits noted. Tuberculosis screening: No symptoms or risk factors identified. Assessment: 05:24 Neuro: No deficits noted. jm12 05:24 Cardiovascular: swelling to feet. Respiratory: No deficits noted. GI: No deficits jm12 noted. No signs and/or symptoms were reported involving the gastrointestinal system. : No deficits noted. No signs and/or symptoms were reported regarding the genitourinary system. EENT: No deficits noted. No signs and/or symptoms were reported regarding the EENT system. Derm: No deficits noted. No signs and/or symptoms reported regarding the dermatologic system. Musculoskeletal: No deficits noted. No signs and/or symptoms reported regarding the musculoskeletal system. 08:00 General: Appears comfortable, Behavior is calm, cooperative. Pain: Denies pain. Neuro: aa5 Level of Consciousness is awake, alert, obeys commands, Oriented to person, place, time, situation. Cardiovascular: Heart tones S1 S2 present Edema is 2+ to left ankle, left foot, right ankle and right foot Rhythm is paced. Respiratory: Reports shortness of breath Currently reports SOB has improved. Airway is patent Respiratory effort is even, unlabored, Respiratory pattern is regular, symmetrical, Breath sounds are clear bilaterally. GI: Abdomen is round non-distended, Last BM was November 22, 2023. Bowel sounds present X 4 quads. Abd is soft X 4 quads Patient currently denies nausea, vomiting. : No signs and/or symptoms were reported regarding the genitourinary system. EENT: No signs and/or symptoms were reported regarding the EENT system. Derm: Skin is dry, Skin is normal, Skin temperature is warm. Musculoskeletal: No signs and/or symptoms reported regarding the musculoskeletal system. 08:00 Reassessment: Unable to document in [employer] not working appropriately, see aa5 paper chart for admission orders. . Vital Signs: 05:03 BP 183 / 93; Pulse 89; Resp 18; Temp 98.2; Pulse Ox 95% ; Weight 114.31 kg; Height 6 jm12 ft. 1 in. ; Pain 0/10; 08:00 BP 138 / 85; Pulse 82; Resp 16 S; Temp 97.5(TE); Pulse Ox 98% on R/A; Pain 0/10; aa5 05:03 Body Mass Index 33.25 (114.31 kg, 185.42 cm) jm12 05:03 Pain Scale: Adult jm12 08:00 Pain Scale: Adult aa5 ED Course: 05:01 Patient arrived in ED. af3 05:04 Mani Guerrero MD is Attending Physician. sp4 05:05 Triage completed. jm12 05:15 Arm band placed on right wrist. jm12 05:46 Inserted saline lock: 22 gauge in left antecubital area, using aseptic technique. Blood jm12 collected. Flushed with 10 mL NS. 07:12 Gabriel Brewer MD is Hospitalizing Provider. sp4 07:41 Peyton Carlson, MYRON is Primary Nurse. db 08:00 IV is patent, is intact, 22 G to L AC noted . aa5 09:00 Report given to Semaj Davidson RN. aa5 10:27 Chest Single View In Process Unspecified. EDMS 10:59 PO fluids given. oh1 12:00 Patient has correct armband on for positive identification. Bed in low position. Call me1 light in reach. Side rails up X2. Provided Education on: POC. Verbalized understanding. . 12:00 No provider procedures requiring assistance completed. me1 12:00 Patient admitted, IV remains in place. me1 13:00 Diet:. Checked the patients blood sugar level at 1300. oh1 Administered Medications: 05:26 Drug: Aspirin PO Chewable Tablet 324 mg PO once; 81 mg tablets x 4 Route: PO; jm12 05:26 Drug: HydrALAZINE PO 50 mg PO once Route: PO; jm12 05:26 Drug: Diazepam PO 5 mg PO once Route: PO; jm12 08:00 Drug: Furosemide IVP 40 mg IVP once; give over 2 minutes Route: IVP; Site: left aa5 antecubital; 08:20 Drug: Xarelto PO 20 mg PO once Route: PO; aa5 08:20 Drug: Lisinopril PO 5 mg PO once Route: PO; aa5 Medication: 14:26 VIS not applicable for this client. me1 Point of Care Testing: Blood Glucose: 08:05 Blood Glucose: 92 mg/dL; aa5 Ranges: Outcome: 07:13 Decision to Hospitalize by Provider. sp4 08:00 Admitted to ER Hold. Please see [facility] for further documentation. aa5 14:25 Condition: stable me1 14:25 Instructed on the need for admit, 14:26 Patient left the ED. me1 Signatures: Dispatcher [employer] EDMS Mattie Bello RN RN aa5 Peyton Carlson RN RN db Mani Guerrero MD MD sp4 Yue Guzman RN RN me1 Francisca Hernandez RN RN 12 Nguyen Angulo 3 Shakira Salas oh1 Corrections: (The following items were deleted from the chart) 09:16 08:00 BP 138 / 85; Pulse 82bpm; Resp 16bpm; Spontaneous; Pulse Ox 98% RA; Temp 97.5F aa5 Temporal; aa5
--- NOTE | 2023-11-24 07:13 | EDPHYS ---
Physician Documentation [facility] Name: Tal Cornejo Age: 78 yrs Sex: Male : 1945 Arrival Date: 11/24/2023 Time: 04:55 Bed 8 Private MD: ED Physician Mani Guerrero HPI: 11/23 05:05 This 78 yrs old Black Male presents to ER via Unassigned with complaints of Short of sp4 breath . 06:30 20-year-old male with history of congestive heart failure diabetes and hypertension sp4 presents with complaint of acute depression, cocaine abuse, also chest pain and shortness of breath.. Historical: - Allergies: 05:05 No Known Allergies; jm12 - PMHx: 05:05 Congestive heart failure; diabetes mellitus; Hypertensive disorder; jm12 - PSHx: 08:00 pacemaker; aa5 - Immunization history:: Adult Immunizations not up to date. - Infectious Disease History:: Denies. - Social history:: Smoking status: Patient reports the use of cigarette tobacco products, Patient uses street drugs, cocaine. - Family history:: not pertinent. ROS: 06:30 Constitutional: Negative for fever, chills, and weight loss, today for acute sp4 depression, chest pain, shortness of breath, acute cocaine abuse 06:30 All other systems are negative, Exam: 06:30 Constitutional: This is a well developed, well nourished patient who is awake, alert, sp4 and in no acute distress. Poor personal hygiene, bilateral lower extremity edema with pitting Head/Face: Normocephalic, atraumatic. Eyes: Pupils equal round and reactive to light, extra-ocular motions intact. Lids and lashes normal. Conjunctiva and sclera are not injected. Cornea within normal limits. Periorbital areas with no swelling, redness, or edema. ENT: Nares patent. No nasal discharge, no septal abnormalities noted. Tympanic membranes are normal and external auditory canals are clear. Oropharynx with no redness, swelling, or masses, exudates, or evidence of obstruction, uvula midline. Mucous membranes moist. Neck: Trachea midline, no thyromegaly or masses palpated, and no cervical lymphadenopathy. Supple, full range of motion without nuchal rigidity, or vertebral point tenderness. Chest/axilla: Normal chest wall appearance and motion. Nontender with no deformity. No lesions are appreciated. Cardiovascular: Regular rate and rhythm with a normal S1 and S2. No gallops, murmurs, or rubs. Normal PMI, no JVD. No pulse deficits. Lateral lower extremity edema Respiratory: Lungs have equal breath sounds bilaterally, clear to auscultation and percussion. No rales, rhonchi or wheezes noted. No increased work of breathing, no retractions or nasal flaring. Abdomen/GI: Soft, with normal bowel sounds. No distension or tympany. No guarding or rebound. No evidence of tenderness throughout. Back: No spinal tenderness. No costovertebral tenderness. Skin: Warm, dry with normal turgor. Normal color with no rashes, no lesions, and no evidence of cellulitis. MS/ Extremity: Pulses equal, no cyanosis. Neurovascular intact. Full, normal range of motion. Bilateral pitting edema Neuro: Awake and alert, GCS 15, oriented to person, place, time, and situation. Cranial nerves II-XII grossly intact. Motor strength 5/5 in all extremities. Sensory grossly intact. Psych: Awake, alert, with orientation to person, place and time. Behavior, mood, and affect are within normal limits 06:30 ECG was reviewed by the Attending Physician. EKG at 0 519 reveals normal sinus rhythm at a rate of 80. Moderate LVH Vital Signs: 05:03 BP 183 / 93; Pulse 89; Resp 18; Temp 98.2; Pulse Ox 95% ; Weight 114.31 kg; Height 6 jm12 ft. 1 in. ; Pain 0/10; 08:00 BP 138 / 85; Pulse 82; Resp 16 S; Temp 97.5(TE); Pulse Ox 98% on R/A; Pain 0/10; aa5 05:03 Body Mass Index 33.25 (114.31 kg, 185.42 cm) jm12 05:03 Pain Scale: Adult jm12 08:00 Pain Scale: Adult aa5 MDM: 06:15 Patient medically screened. sp4 06:30 Differential diagnosis: Bronchitis CHF exacerbation, Chronic Obstructive Pulmonary sp4 Disease Myocardial Infarction pneumonia, Psychogenic. Data reviewed: vital signs, nurses notes, EMS record, old medical records, lab test result(s), EKG, radiologic studies, plain films. ED course: Positive acute cocaine abuse in the setting of heart failure. . 06:43 ED course: . sp4 07:14 ED course: Stable for admission to medicine for management of acute heart failure sp4 associated with cocaine abuse. 11/23 05:05 Order name: Basic Metabolic Panel sp4 11/23 05:05 Order name: CBC with Diff sp4 / 05:05 Order name: LFT's sp4 11/23 05:05 Order name: Magnesium sp4 / 05:05 Order name: NT PRO-BNP sp4 / 05:05 Order name: PT-INR sp4 11/23 05:05 Order name: Troponin HS sp4 / 05:05 Order name: Urine Drug Screen sp4 / 05:06 Order name: Alcohol Level sp4 11/23 05:06 Order name: Acetaminophen sp4 11/23 05:06 Order name: Salicylate sp4 11/23 05:06 Order name: Urinalysis W/Microscopic sp4 / 06:28 Order name: Alcohol Serum/Plasma; Complete Time: 06:30 EDMS / 06:37 Order name: CBC with Automated Diff EDMS / 06:45 Order name: Basic Metabolic Panel; Complete Time: 07:07 EDMS 08/ 06:45 Order name: Liver (Hepatic) Function; Complete Time: 07:07 EDMS / 06:45 Order name: Troponin High Sensitivity; Complete Time: 07:07 EDMS / 06:45 Order name: NT PRO-BNP; Complete Time: 07:07 EDMS / 06:45 Order name: Acetaminophen Level; Complete Time: 07:07 EDMS 11/23 06:45 Order name: Magnesium; Complete Time: 07:07 EDMS / 06:54 Order name: Protime (+INR); Complete Time: 07:07 EDMS / 07:21 Order name: CBC Smear Scan EDMS / 08:17 Order name: Glucose, Ancillary Testing EDMS / 10:21 Order name: Basic Metabolic Panel EDMS 08/ 10:21 Order name: Basic Metabolic Panel EDMS 11/23 10:21 Order name: Basic Metabolic Panel EDMS / 10:24 Order name: CBC with Automated Diff EDMS / 10:24 Order name: CBC with Automated Diff EDMS 11/23 10:24 Order name: CBC with Automated Diff EDMS 08/04 10:24 Order name: CBC with Automated Diff EDMS 08/ 10:24 Order name: Troponin High Sensitivity EDMS 08/ 10:24 Order name: Troponin High Sensitivity EDMS 08/ 10:24 Order name: Troponin High Sensitivity EDMS 08/04 10:26 Order name: Basic Metabolic Panel EDMS 08/ 10:26 Order name: Liver (Hepatic) Function EDMS / 10:26 Order name: Troponin High Sensitivity EDMS / 10:26 Order name: NT PRO-BNP EDMS / 10:26 Order name: Acetaminophen Level EDMS / 10:26 Order name: Magnesium EDMS 08/ 10:26 Order name: CBC with Automated Diff EDMS 08/ 10:26 Order name: Protime (+INR) EDMS / 10:26 Order name: Alcohol Serum/Plasma EDMS / 10:26 Order name: Salicylates Level EDMS / 10:26 Order name: Urinalysis w/ reflexes EDMS / 10:26 Order name: Urine Drug Screen EDMS / 10:26 Order name: Glucose, Ancillary Testing EDMS / 10:27 Order name: CBC Smear Scan EDMS / 13:05 Order name: CBC Smear Scan EDMS / 13:11 Order name: Glucose, Ancillary Testing EDMS 11/23 13:22 Order name: Glucose, Ancillary Testing EDMS 08/04 05:05 Order name: XRAY Chest (1 view) sp4 / 10:27 Order name: Chest Single View EDMS / 05:05 Order name: EKG; Complete Time: 15:49 sp4 / 05:05 Order name: Cardiac monitoring; Complete Time: 05:18 sp4 / 05:05 Order name: EKG - Nurse/Tech; Complete Time: 05:46 sp4 / 05:05 Order name: IV Saline Lock; Complete Time: 05:46 sp4 / 05:05 Order name: Labs collected and sent; Complete Time: 05:46 sp4 /04 05:05 Order name: O2 Per Protocol; Complete Time: 05:18 sp4 04 05:05 Order name: O2 Sat Monitoring; Complete Time: 05:18 sp4 EC:30 Rate is 80 beats/min. Rhythm is regular, Normal Sinus Rhythm. QRS [place] is Normal. AR sp4 interval is normal. QRS interval is normal. QT interval is normal. No Q waves. T waves are Normal. No ST changes noted. Clinical impression: No evidence of ischemia. Interpreted by me. Reviewed by me. Administered Medications: 05:26 Drug: Aspirin PO Chewable Tablet 324 mg PO once; 81 mg tablets x 4 Route: PO; [facility] 05:26 Drug: HydrALAZINE PO 50 mg PO once Route: PO; [facility] 05:26 Drug: Diazepam PO 5 mg PO once Route: PO; [facility] 08:00 Drug: Furosemide IVP 40 mg IVP once; give over 2 minutes Route: IVP; Site: left aa5 antecubital; 08:20 Drug: Xarelto PO 20 mg PO once Route: PO; 5 08:20 Drug: Lisinopril PO 5 mg PO once Route: PO; aa5 Point of Care Testing: Blood Glucose: 08:05 Blood Glucose: 92 mg/dL; aa5 Ranges: Critical Glucose Levels:Adult <50 mg/dl or >400 mg/dl <40 mg/dl or >180 mg/dl Disposition Summary: 11/24/23 07:13 Hospitalization Ordered Notes: Hospitalization Status: Inpatient Admission sp4 Provider: Gabriel Brewer [facility] sp4 Condition: Stable sp4 Problem: new sp4 Symptoms: have improved sp4 Bed/Room Type: Standard 4 Room Assignment: [facility](11/24/23 13:19) eb Diagnosis - Acute diastolic (congestive) heart failure sp4 - Other psychoactive substance abuse sp4 - Cocaine abuse, acute CHF exacerbation sp4 Forms: - Medication Reconciliation Form sp4 - SBAR form sp4 - Leadership Thank You Letter sp4 Signatures: Dispatcher [employer] Mattie Baez RN RN aa5 Nisha Narvaez Sergey, MD MD sp4 Francisca Hernandez RN RN jm12 Corrections: (The following items were deleted from the chart) 13:19 07:13 sp4 eb
[2023-11-24 07:21] LABS: Anisocytosis 2+; Blood Morphology Comment NOTED (NOT SEEN); Hypochromasia 2+; Platelet Estimate ADEQ; White Blood Cell Scan OK (OK)
[2023-11-24] MEDS ORDERED: lisinopriL 5 MG TAB ONE (07:57)
[2023-11-24] MEDS ORDERED: RIVAROXABAN 20 MG TABLET PO ONE (07:58)
[2023-11-24] MEDS ORDERED: FUROSEMIDE 40 MG/4 ML VIAL ONE ×2 (07:58→12:59)
[2023-11-24] MEDS ORDERED: ACETAMINOPHEN 325 MG TABLET PO PRN ×2 (08:15→14:31)
[2023-11-24] MEDS ORDERED: D50W 25 GM/50 ML SYRINGE IV PRN (09:00)
[2023-11-24] MEDS: ASPIRIN EC 81 MG TAB PO SCH (09:00)
[2023-11-24] MEDS ORDERED: GLUCAGON 1 MG/VIAL IM PRN (09:00)
[2023-11-24] MEDS: lisinopriL 20 MG TAB PO SCH (09:00)
[2023-11-24] MEDS: INSULIN REGULAR (HUMAN) 100 UNIT/ML SQ SCH ×2 (11:30→14:31)
[2023-11-24 11:46] LABS: Absolute Basophils 0.1 K/uL (0-0.5); Absolute Eosinophils 0.6 K/uL (0-0.5); Absolute Lymphocytes (CBC) 1.4 K/uL (0.7-4.9); Basophils % 1.2 % (0-1.3); Eosinophils % 7.6 % (0-4.4); Hematocrit 38.9 % (39.6-49.0); Hemoglobin 11.7 g/dL (13.6-17.9); Lymphocytes % 17.3 % (15.3-44.8); MCH 18.9 pg (27.0-35.0); MCHC 30.2 g/dL (32.0-36.0); MCV 62.7 fL (80-100); MPV 8.7 fL (7.6-11.3); Monocytes % 12.4 % (3.3-12.3); Neutrophils % 61.5 % (41.7-73.7); Nucleated Red Blood Cells % 0.4 % (0-0); Platelets 191 thou/uL (152-406)
[2023-11-24] MEDS: FUROSEMIDE 40 MG/4 ML VIAL IV SCH ×2 (12:00→22:37)
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
[2023-11-24] MEDS ORDERED: ASPIRIN EC 81 MG TAB PO ONE (12:59)
[2023-11-24] MEDS ORDERED: lisinopriL 20 MG TAB ONE (12:59)
[2023-11-24 13:05] LABS: Blood Morphology Comment NOTED (NOT SEEN); Hypochromasia 2+; Platelet Estimate ADEQ; White Blood Cell Scan OK (OK)
[2023-11-24 14:59] LABS: Specific Gravity 1.006 (1.005-1.030); Urine Bilirubin NEGATIVE (Negative); Urine Blood Negative (Negative); Urine Clarity Clear (Clear); Urine Color Colorless (Yellow); Urine Glucose NEGATIVE (Negative); Urine Ketones NEGATIVE (Negative); Urine Microscopic Reflex YN NO UMIC; Urine Nitrite NEGATIVE (Negative); Urine Protein NEGATIVE (Negative); Urine Urobilinogen Normal (Normal); Urine pH 6.5 (5.0-7.0)
[2023-11-24 15:11] LABS: Barbiturates NEGATIVE (NEGATIVE); Benzodiazepines NEGATIVE (NEGATIVE); Cocaine POSITIVE (NEGATIVE); METHAMPHETAM NEGATIVE (NEGATIVE); Methadone NEGATIVE (NEGATIVE); Opiates NEGATIVE (NEGATIVE); Phencyclidine NEGATIVE (NEGATIVE); THC Cannibis NEGATIVE (NEGATIVE)
[2023-11-24] MEDS: RIVAROXABAN 20 MG TABLET PO SCH (16:53)
[2023-11-24] MEDS ORDERED: RIVAROXABAN 20 MG TABLET PO SCH (17:00)
--- NOTE | 2023-11-24 17:23 | CON ---
Date of Consultation: 11/24/2023 Reason For Consultation: Congestive heart failure. History Of Present Illness: 78-year-old male, history of diastolic heart failure, DVT, hypertension, dyslipidemia, surgery for aortic valve replacement and diabetes, who presented with shortness of tj ath and chest discomfort as well as lower extremity edema. No orthopnea. He has history of substanc e abuse and he was in rehab facility, released recently. He denies having any active chest pain at t his moment. He is generally feeling much better. Past Medical History: As outlined above in the HPI. Medications: Refer to reconciliation sheet for detailed list. Allergies: NO KNOWN DRUG ALLERGIES. Family History: No premature coronary artery disease or cancer. Social History: He is a smoker and uses drugs as outlined above and drinks on occasions. Review of Systems: All systems were reviewed and they were negative except as mentioned in the HPI. Past Surgical History: IVC filter is placed plus aortic valve replacement in 2021. Physical Examination: Vital Signs: Reviewed. Head and Neck: Pupils are equal, reactive to light. Intact eye movements. No JVD. No cervical lym phadenopathy. Neck is supple. Thyroid is not enlarged. Lungs: Increased breathing sounds. No accessory muscle use or muscle retraction. Heart: Regular. No extra sounds. Abdomen: Soft, nontender. Bowel sounds positive. No organomegaly. No masses or hernia. No rigidit y or rebound. Extremities: Positive edema bilaterally. No clubbing or cyanosis. Intact pulses. Skin: No rash. No nodule. Neurologic: Alert, awake, oriented x3. No acute focal deficits appreciated. Investigations: BUN 20, creatinine 1.47. Troponins are negative. NT-proBNP is 4992, and hemoglobin is 11.7. Assessment And Recommendations: 1.Chest pain. It is atypical. Cardiac enzymes are negative. Recommend outpatient stress test. 2.Congestive heart failure exacerbation. Agree with aggressive IV diuretics. Carefully monitor BUN , creatinine, and electrolytes as his creatinine is slightly elevated, but his baseline is around 1.3 5. 3.Acute renal failure, probably due to congestive heart failure. Plan for a daily monitoring of BUN and creatinine while in diuretics and obtain an echocardiogram if one was not done recently. 4.Hypertension. Blood pressure is elevated, should improve with further diuresis. 5.History of deep venous thrombosis, on Xarelto, to continue. 6.History of aortic valve replacement. Please obtain an echocardiogram to evaluate the bioprosthesi s function. /YEMI Voice ID: [id number] Report ID: [id number]
[2023-11-24] MEDS ORDERED: METOPROLOL TAR 25 MG TAB PO SCH (18:00)
[2023-11-24] MEDS: ATORVASTATIN 40 MG TAB PO SCH (22:14)
[2023-11-25 06:27] LABS: Absolute Basophils 0.1 K/uL (0-0.5); Absolute Eosinophils 0.6 K/uL (0-0.5); Absolute Lymphocytes (CBC) 1.4 K/uL (0.7-4.9); Absolute Neutrophil 4.8 K/uL (1.8-8.0); Basophils % 1.1 % (0-1.3); Eosinophils % 7.9 % (0-4.4); Hematocrit 36.8 % (39.6-49.0); Hemoglobin 11.4 g/dL (13.6-17.9); Lymphocytes % 17.6 % (15.3-44.8); MCH 19.3 pg (27.0-35.0); MCV 62.2 fL (80-100); MPV 8.8 fL (7.6-11.3); Neutrophils % 60.4 % (41.7-73.7); Nucleated Red Blood Cells % 0.6 % (0-0); Platelets 222 thou/uL (152-406); RBC Red Blood Cell Count 5.92 M/uL (4.33-5.43); Red Cell Distribution Width 16.9 % (12.1-15.2)
[2023-11-25 06:47] LABS: Anion Gap 6.7 mEq/L (5.0-15.0); Potassium 3.7 mEq/L (3.5-5.1)
[2023-11-25] MEDS: ASPIRIN EC 81 MG TAB PO SCH (08:16)
[2023-11-25] MEDS: lisinopriL 5 MG TAB PO SCH (08:16)
[2023-11-25 08:31] LABS: Atypical Lymphocytes 7 %; Differential Total Cells Count 100; Eosinophils 2 % (0-3); Lymphocytes 34 % (15-42); Monocytes 14 % (0-10); Segmented Neutrophils 38 % (40-80)
[2023-11-25 08:32] LABS: Anisocytosis 1+; Blood Morphology Comment NOTED (NOT SEEN); Hypochromasia 2+; Microcytosis 2+; Nucleated Red Blood Cells 2 /100WBC; Platelet Estimate ADEQ; Platelets, Giant RARE; Target Cells 1+
[2023-11-25] MEDS ORDERED: lisinopriL 5 MG TAB PO SCH (09:00)
--- NOTE | 2023-11-25 12:44 | P.PN ---
Subjective Date of Service: 11/25/23 Chief Complaint: Chest pain, CHF Subjective: No new changes, No C/O voiced, Tolerating diet, Ambulating, Improving Review of Systems 10-point ROS is otherwise unremarkable Physical Examination - Vital Signs Temperature: 96.2 F Blood Pressure: 118/78 Pulse: 69 Respirations: 16 Pulse Ox (%): 96 - Physical Exam General: Alert, In no apparent distress HEENT: Atraumatic, PERRLA, EOMI Neck: Supple, JVD not distended Respiratory: Clear to auscultation bilaterally, Normal air movement Cardiovascular: Regular rate/rhythm, Normal S1 S2, Edema Gastrointestinal: Normal bowel sounds, No tenderness Musculoskeletal: No tenderness Integumentary: No rashes Neurological: Normal speech, Normal tone, Normal affect Lymphatics: No axilla or inguinal lymphadenopathy - Studies Laboratory Data (last 24 hrs) 11/24/23 11/24/23 11/24/23 05:05 05:05 05:05 WBC Cancelled Hgb Cancelled Hct Cancelled Plt Count Cancelled PT Cancelled INR Cancelled Sodium Cancelled Potassium Cancelled BUN Cancelled Creatinine Cancelled Glucose Cancelled Magnesium Cancelled Total Bilirubin Cancelled AST Cancelled ALT Cancelled Alkaline Phosphatase Cancelled Medications List Reviewed: Yes Assessment And Plan - Current Problems (Diagnosis) (1) Acute on chronic diastolic (congestive) heart failure Current Visit: No Status: Acute Plan: continue diuresis with Lasix 40 mg IV TID Continue to monitor input and output monitor and correct electrolytes (2) Chronic deep vein thrombosis of left popliteal vein Current Visit: No Status: Chronic Plan: continue Xarelto 20 mg daily (3) H/O aortic valve replacement Current Visit: No Status: Chronic Plan: follow up on echo (4) HTN (hypertension) Current Visit: No Status: Chronic Plan: continue lisinopril 5 mg daily start coreg 3.125 mg po BID Qualifiers: Hypertension type: primary hypertension Qualified Code(s): I10 - Essential (primary) hypertension
--- NOTE | 2023-11-25 13:11 | RAD REPORT ---
EXAM DESCRIPTION: RAD - Chest Single View - 11/24/2023 6:04 am CLINICAL HISTORY: Chest pain. COMPARISON: XR Chest 03/25/2023(Report only). FINDINGS: 1 view(s) of the chest. Tubes and lines: Left chest wall multilead generator. Cardiomediastinal silhouette: Atherosclerotic calcification of thoracic aorta. Cardiomegaly. Lungs: Low lung volumes. No pneumothorax or large effusion. Pulmonary vascular congestion. Bones: No acute osseous abnormality. Degenerative change of the spine and shoulders. Upper abdomen: No abnormality identified. IMPRESSION: Cardiomegaly with pulmonary vascular congestion. Electronically signed by: Christiano Dumont DO 11/24/2023 06:59 AM CDT RP [id number] Due to temporary technical issues with the PACS/Fluency reporting system, reports are being signed by the in house radiologist without review as a courtesy to ensure prompt reporting. The interpreting r adiologist is fully responsible for the content of the report.
--- NOTE | 2023-11-25 14:34 | ECHO ---
HEIGHT: 6 ft 1 in WEIGHT: 252 lb 0 oz DATE OF STUDY: 11/25/[address]: Chaz Minor NP 2-DIMENSIONAL: YES M.MODE: YES DOPPLER: YES COLOR FLOW: YES TDS: YES PORTABLE: YES DEFINITY: BUBBLE STUDY: DIAGNOSIS: CHEST PAIN, CONGESTIVE HEART FAILURE/ AORTIC VALVE REPAIR CARDIAC HISTORY: CATHERIZATION: SURGERY: PROSTHETIC VALVE: PACEMAKER: MEASUREMENTS (cm) DIASTOLIC (NORMALS) SYSTOLIC (NORMALS) IVSd 1.5 (0.6-1.2) LA Diam (1.9-4.0) LVEF 58% LVIDd 4.3 (3.5-5.7) LVIDs 3.0 (2.0-3.5) %FS 30% LVPWd 1.6 (0.6-1.2) Ao Diam 2.7 (2.0-3.7) 2 DIMENSIONAL ASSESSMENT: RIGHT ATRIUM: NORMAL LEFT ATRIUM: NORMAL RIGHT VENTRICLE: NORMAL LEFT VENTRICLE: NORMAL TRICUSPID VALVE: MILD TRICUSPID REGURGITATION MITRAL VALVE: MITRAL ANNULAR CALCIFICATION PULMONIC VALVE: NORMAL AORTIC VALVE: BIOPROSTHESIS WITH MILD AORTIC INSUFFICIENCY PERICARDIAL EFFUSION: NONE AORTIC ROOT: NORMAL LEFT VENTRICULAR WALL MOTION: NORMAL DOPPLER/COLOR FLOW: SEE BELOW COMMENTS: 1. NORMAL LEFT VENTRICULAR EJECTION FRACTION 55-60% WITH NORMAL WALL MOTION 2. GRADE I DIASTOLIC DYSFUNCTION 3. MILD TRICUSPID REGURGITATION 4. AORTIC VALVE BIOPROSTHESIS IS PRESENT AND FUNCTIONING NORMALLY TECHNOLOGIST: SENDY DOUGLAS
--- NOTE | 2023-11-25 14:49 | P.PN ---
Date of Service: 11/25/23 Subjective: Chest pain is improved Still with lower extremity edema ROS: 10 point ROS as noted above, otherwise negative Physical exam GEN: Alert, oriented, NAD HEENT: Normal conjunctiva, sclera anicteric CV: Regular rate and rhythm, 2+ pitting edema bilateral lower extremity Pulm: Nonlabored respirations on room air ABD: Soft, nontender, nondistended MSK: No joint tenderness Integumentary: No rashes Neuro: Normal speech, normal affect Vitals reviewed Assessment: Chest pain rule out ACS Acute on chronic diastolic congestive heart failure History of DVT on chronic anticoagulation History of aortic valve placement 2021 Diabetes mellitus type [id number] Hypertension Hyperlipidemia Cocaine abuse Depression Plan: Chest pain rule out ACS Acute on chronic diastolic congestive heart failure Chest pain improved, trops negative Cardiology recommends outpatient stress test Edema improving, cardiology recommends another day of IV diuresis Echocardiogram performed shows 1. NORMAL LEFT VENTRICULAR EJECTION FRACTION 55-60% WITH NORMAL WALL MOTION 2. GRADE I DIASTOLIC DYSFUNCTION 3. MILD TRICUSPID REGURGITATION 4. AORTIC VALVE BIOPROSTHESIS IS PRESENT AND FUNCTIONING NORMALLY Plan to transition to PO diuretics and discharge tomorrow [facility] [place] History of aortic valve placement 2021 History of DVT on chronic anticoagulation Continue Xarelto Diabetes mellitus type [id number] ACHS Accu-Chek, signs of insulin Hypertension Hyperlipidemia Continue home medications Cocaine abuse Depression Discussed importance of cessation Denies suicidal ideation at this time DVT PPX: Continue Xarelto Code status: Full Discharge Plan: Home Plan to discharge in: 24 Hours Time Spent Managing Pts Care (In Minutes): 35
[2023-11-25] MEDS ORDERED: RIVAROXABAN 20 MG TABLET PO SCH (17:00)
--- NOTE | 2023-11-25 17:00 | EKG ---
Test Date: 2023-11-24 Test Time: 05:19:43 Yeast Stacker: ZE MEASUREMENT RESULTS: Intervals: Rate: 80 GA: 164 QRSD: 86 QT: 416 QTc: 479 [place]: P: 23 GA: 164 QRS: -28 T: 46 INTERPRETIVE STATEMENTS: Sinus rhythm with premature atrial complexes Moderate voltage criteria for LVH, may be normal variant Cannot rule out Septal infarct, age undetermined Abnormal ECG Compared to ECG 03/25/2023 12:11:08 Atrial premature complex(es) now present Myocardial infarct finding now present Electronically Signed On 11-25-23 16:57:18 CDT by Kun Garcia
[2023-11-26 05:37] LABS: Absolute Basophils 0.1 K/uL (0-0.5); Absolute Eosinophils 0.7 K/uL (0-0.5); Absolute Lymphocytes (CBC) 1.5 K/uL (0.7-4.9); Absolute Monocytes 1.1 K/uL (0.1-1.3); Absolute Neutrophil 3.9 K/uL (1.8-8.0); Anion Gap 5.7 mEq/L (5.0-15.0); Basophils % 0.9 % (0-1.3); Eosinophils % 9.2 % (0-4.4); Hematocrit 38.2 % (39.6-49.0); Hemoglobin 11.9 g/dL (13.6-17.9); Lymphocytes % 20.7 % (15.3-44.8); MCH 19.4 pg (27.0-35.0); MCHC 31.2 g/dL (32.0-36.0); MPV 8.5 fL (7.6-11.3); Monocytes % 15.4 % (3.3-12.3); Neutrophils % 53.8 % (41.7-73.7); Nucleated Red Blood Cells % 0.5 % (0-0); Platelets 216 thou/uL (152-406); Potassium 3.7 mEq/L (3.5-5.1); RBC Red Blood Cell Count 6.14 M/uL (4.33-5.43); Red Cell Distribution Width 16.8 % (12.1-15.2)
[2023-11-26 07:30] LABS: MCV 62.1 fL (80-100)
[2023-11-26] MEDS: carvediloL 3.125 MG TAB PO SCH (09:09)
--- NOTE | 2023-11-26 09:11 | P.DS ---
Admission Date: 11/25/23 Discharge Date: 11/27/23 Disposition: ROUTINE DISCHARGE Discharge Condition: GOOD Reason for Admission: Chest pain, CHF Brief History of Present Illness: Diagnosis Chest pain rule out ACS Acute on chronic diastolic congestive heart failure History of DVT on chronic anticoagulation History of aortic valve placement 2021 Diabetes mellitus type [id number] Hypertension Hyperlipidemia Cocaine abuse Depression HPI 11/24/23 78-year-old male with history of chronic diastolic congestive heart failure, previous DVT on chronic anticoagulation, hypertension, hyperlipidemia, history of aortic valve replacement, txs-wurbrnx-okxfjjdys diabetes presents emergency department chief complaint of chest pain, shortness of breath, depression. He reports that he was recently really released from a substance abuse rehabilitation setting. When he got home he had asked to stay with a friend who was not going to allow him to stay with her and this upset him. He ended up using cocaine and felt as if he was suicidal. He developed chest pain and shortness of breath after this. Patient was evaluated in the emergency department, his initial high-sensitivity opponent was 39.1, BNP 4992, creatinine 1.47. When asked if he was suicidal he reported he is not currently suicidal and denies having a plan reports that he was just upset earlier after discussion with a friend. Will admit patient under observation for ACS rule out, CHF exacerbation. Hospital Course: Tla Cornejo is a pleasant 78 year old male with a past medical history significant for chronic diastolic congestive heart failure, previous DVT on chronic anticoagulation, hypertension, hyperlipidemia, history of aortic valve replacement, lcn-ldoyrcf-tkucxsnlz diabetes who was admitted to the [facility] on 11/24/23 for Chest pain, SOB, and depression. Tal Cornejo was admitted to the hospital for chest pain, CHF exacerbation. He had been without his diuretics for a few days and had also taken cocaine after an emotional discussion with a friend. He was admitted under observation, troponins were negative and trended flat and he was diuresed with IV Lasix. He was evaluated by cardiology who recommended we obtain an echocardiogram, echocardiogram showed grade 1 diastolic dysfunction, normal left ventricular ejection fraction, appropriate functioning of his bioprosthetic aortic valve. Chest pain has improved, cardiology recommends outpatient stress test for further evaluation. Patient stable for discharge at this time. Offered to send prescriptions to pharmacy for patient but he declined stating he gets them from [facility] and he will not pay for any, states he should not have any difficulty getting his medications. On 11/27/23, Tal was seen on morning rounds and deemed medically stable for discharge to [facility]. Tal was discharged with instructions to schedule [facility] with [facility]. Tal was provided prescriptions for aspirin, Bumex, Coreg, Lipitor, Prinivil, and Xarelto. Physical exam GEN: awake, Alert and oriented x3, NAD HEENT: Normal conjunctiva, sclera anicteric CV: Paced rhythm HR 67, 2+ pitting edema bilateral lower extremity Pulm: Nonlabored respirations, symmetrical chest wall movement, on room air ABD: Soft on palpation, NT/ND MSK: No joint tenderness, 2+ peripheral pulses Integumentary: No rashes Neuro: Normal speech, normal affect Vital Signs/Physical Exam: Temp Pulse Resp BP Pulse Ox 98.5 F 70 15 112/67 96 11/26/23 08:00 11/26/23 08:00 11/26/23 08:00 11/26/23 08:00 11/26/23 08:00 Laboratory Data at Discharge: WBC 7.20 thou/uL (4.3-10.9) 11/26/23 04:32 Hgb 11.9 g/dL (13.6-17.9) L 11/26/23 04:32 Hct 38.2 % (39.6-49.0) L 11/26/23 04:32 Plt Count 216 thou/uL (152-406) 11/26/23 04:32 PT 13.4 SECONDS (9.4-12.5) H 11/24/23 05:48 INR 1.20 11/24/23 05:48 Sodium 142 mEq/L (136-145) 11/26/23 04:32 Potassium 3.7 mEq/L (3.5-5.1) 11/26/23 04:32 BUN 39 mg/dL (7-18) H 11/26/23 04:32 Creatinine 1.98 mg/dL (0.70-1.30) H 11/26/23 04:32 Glucose 111 mg/dL (74-106) H 11/26/23 04:32 Magnesium 2.3 mg/dL (1.6-2.4) 11/24/23 05:48 Total Bilirubin 1.1 mg/dL (0.2-1.0) H 11/24/23 05:48 AST 20 U/L (15-37) 11/24/23 05:48 ALT 18 U/L (16-61) 11/24/23 05:48 Alkaline Phosphatase 104 U/L (45-117) 11/24/23 05:48 Home Medications: Aspirin [Aspirin EC 81 MG] 81 mg PO DAILY 30 Days #30 tab 11/26/23 Atorvastatin Calcium [Lipitor] 40 mg PO BEDTIME 30 Days #30 tab 11/26/23 Bumetanide [Bumex] 1 mg PO DAILY 30 Days #30 tab 11/26/23 Rivaroxaban [Xarelto] 20 mg PO 30 MIN BEFORE HS 30 Days #30 tab 11/26/23 carvediloL [Coreg*] 3.125 mg PO BID 6AM 6PM 30 Days #60 tab 11/26/23 lisinopriL [Prinivil*] 5 mg PO DAILY 30 Days #30 tab 11/26/23 New Medications: Aspirin [Aspirin EC 81 MG] 81 mg PO DAILY 30 Days #30 tab Bumetanide [Bumex] 1 mg PO DAILY 30 Days #30 tab carvediloL [Coreg*] 3.125 mg PO BID 6AM 6PM 30 Days #60 tab Atorvastatin Calcium [Lipitor] 40 mg PO BEDTIME 30 Days #30 tab lisinopriL [Prinivil*] 5 mg PO DAILY 30 Days #30 tab Rivaroxaban [Xarelto] 20 mg PO 30 MIN BEFORE HS 30 Days #30 tab Physician Discharge Instructions: Patient was admitted to the hospital for chest pain, CHF exacerbation. He had been without his diuretics for a few days and had also taken cocaine after an emotional discussion with a friend. He was admitted under observation, troponins were negative and trended flat and he was diuresed with IV Lasix. He was evaluated by cardiology who recommended we obtain an echocardiogram, echocardiogram showed grade 1 diastolic dysfunction, normal left ventricular ejection fraction, appropriate functioning of his bioprosthetic aortic valve. Chest pain has improved, cardiology recommends outpatient stress test for further evaluation. Patient stable for discharge at this time. Offered to send prescriptions to pharmacy for patient but he declined stating he gets them from the [facility] and he will not pay for any, states he should not have any difficulty getting his medications. [facility] primary care doctor 1 to 2 weeks Please also follow-up with cardiology in 1 to 2 weeks Continue your home medications as previously prescribed including your Bumex, Xarelto Diet: AHA Activity: Ad fabiano Followup: Kun Garcia MD [ACTIVE - CAN ADMIT] - [facility] - 1-2 Weeks
--- NOTE | 2023-11-26 11:12 | P.PN ---
Subjective Date of Service: 11/26/23 Chief Complaint: Chest pain, CHF Subjective: No new changes, No C/O voiced, Tolerating diet, Ambulating, Improving Review of Systems 10-point ROS is otherwise unremarkable Physical Examination - Vital Signs Temperature: 98.5 F Blood Pressure: 112/67 Pulse: 70 Respirations: 15 Pulse Ox (%): 96 - Physical Exam General: Alert, In no apparent distress HEENT: Atraumatic, PERRLA, EOMI Neck: Supple, JVD not distended Respiratory: Clear to auscultation bilaterally, Normal air movement Cardiovascular: Regular rate/rhythm, Normal S1 S2 Gastrointestinal: Normal bowel sounds, No tenderness Musculoskeletal: No tenderness Integumentary: No rashes Neurological: Normal speech, Normal tone, Normal affect Lymphatics: No axilla or inguinal lymphadenopathy - Studies Medications List Reviewed: Yes Assessment And Plan - Current Problems (Diagnosis) (1) Acute on chronic diastolic (congestive) heart failure Current Visit: No Status: Acute Plan: switch lasix to 40 mg po BID Continue to monitor input and output monitor and correct electrolytes (2) Chronic deep vein thrombosis of left popliteal vein Current Visit: No Status: Chronic Plan: continue Xarelto 20 mg daily (3) H/O aortic valve replacement Current Visit: No Status: Chronic Plan: echo shows normal functioning bioprosthetic valve. (4) HTN (hypertension) Current Visit: No Status: Chronic Plan: continue lisinopril 5 mg daily coreg 3.125 mg po BID follow up with cardiology as outpatient Qualifiers: Hypertension type: primary hypertension Qualified Code(s): I10 - Essential (primary) hypertension
[2023-11-27] MEDS: ACETAMINOPHEN 325 MG TABLET PO PRN (04:16)
[2023-11-27 15:10] VITALS: BMI 30.3
[2023-11-27 15:15] VITALS: O2SAT 98
[2023-11-27 16:56] VITALS: BP 128/76; TEMP 97.7
--- NOTE | 2023-11-27 18:59 | P.PN ---
Date of Service: 11/26/23 Subjective: Feeling well, no new complaints Planned for discharge to [facility] for evaluation, will attempt discharge to [facility] in the AM if approved. ROS: 10 point ROS as noted above, otherwise negative Physical exam GEN: Alert and oriented x3, NAD HEENT: Normal conjunctiva, sclera anicteric CV: RRR, 2+ pitting edema bilateral lower extremity Pulm: Nonlabored respirations on room air ABD: Soft on palpation, NT/ND MSK: No joint tenderness, 2+ peripheral pulses Integumentary: No rashes Neuro: Normal speech, normal affect Vitals reviewed Assessment: Chest pain rule out ACS Acute on chronic diastolic congestive heart failure History of DVT on chronic anticoagulation History of aortic valve placement 2021 Diabetes mellitus type [id number]-[id number] Hypertension Hyperlipidemia Cocaine abuse Depression Plan: Chest pain rule out ACS Acute on chronic diastolic congestive heart failure Chest pain improved, trops negative Cardiology recommends outpatient stress test Edema improving, cardiology recommends another day of IV diuresis Echocardiogram performed shows 1. NORMAL LEFT VENTRICULAR EJECTION FRACTION 55-60% WITH NORMAL WALL MOTION 2. GRADE I DIASTOLIC DYSFUNCTION 3. MILD TRICUSPID REGURGITATION 4. AORTIC VALVE BIOPROSTHESIS IS PRESENT AND FUNCTIONING NORMALLY Plan to transition to PO diuretics and discharge tomorrow Will discharge to either [facility] or [facility] in [place] History of aortic valve placement 2021 History of DVT on chronic anticoagulation Continue Xarelto Diabetes mellitus type [id number] ACHS Accu-Chek, signs of insulin Glucose well controlled Hypertension Hyperlipidemia Continue home medications Cocaine abuse Depression Discussed importance of cessation Denies suicidal ideation at this time DVT PPX: Continue Xarelto Code status: Full Discharge Plan: Home Plan to discharge in: 24 Hours
== END 2023-11-27 17:16 | disposition home or self-care (01) | DRG 291 ==
LOC: ER 04:55 → ERHOLD 10:16 → 2ND 13:25 → OBSVTOIN 11-25 17:53
PROVIDERS: ADMIT Hospitalist; ATTEND Internal Medicine
DX: I11.0 Hypertensive heart disease with heart failure (principal); I50.33 Acute on chronic diastolic (congestive) heart failure; N17.9 Acute kidney failure, unspecified; F14.10 Cocaine abuse, uncomplicated; E11.40 Type 2 diabetes mellitus with diabetic neuropathy, unspecified; Z79.85 Long-term (current) use of injectable non-insulin antidiabetic drugs; Z95.0 Presence of cardiac pacemaker; Z86.718 Personal history of other venous thrombosis and embolism; Z79.01 Long term (current) use of anticoagulants; M10.9 Gout, unspecified; F32.A Depression, unspecified
CPT/HCPCS: 36415; 71045; 80048; 80076; 80143; 80179; 80307; 81003; 82077; 82947; 83735; 83880; 84484; 85025; 85610; 93005; 93306; 96374; 99285; G0378; J1940